=== PATIENT | female | born 1980 | race Caucasian/White ===

== ENCOUNTER 2022-12-16 11:20 | Outpatient (OUT) | payer MEDICAID, SELFPAY ==
--- NOTE | 2022-12-16 11:28 | MM_ITS ---
Patient: ANN MARIE RODRIGUEZ Exam Date: 12/16/2022 : 1980 Gender:F Ordering : Non-Staff Physician Admission #: [id number] Family : ZULY JARQUIN Order #: [id number] CLICK HERE TO VIEW EXAM RADIOLOGY REPORT PROCEDURE: MM TOMOSYNTHESIS SCREENING BI COMPARISON: None. INDICATIONS: Screening Calculator Name NCI Breast Cancer Risk Assessment Tool 5 Year Breast Cancer Risk 0.70% Lifetime Breast Cancer Risk 12.50% Personal Breast Cancer No Personal Ovarian Cancer No Treatments None Family Cancers Grandmother-maternal with breast cancer at age 84; Aunt-maternal with breast cancer at age 57. LOCATION: [facility] BREAST COMPOSITION: Extremely dense, which lowers the sensitivity of mammography. FINDINGS: DIAGNOSTIC CATEGORY 1--NEGATIVE. RIGHT BREAST: No significant suspicious finding. LEFT BREAST: No significant suspicious finding. RECOMMENDATIONS: ROUTINE MAMMOGRAM AND CLINICAL EVALUATION IN 12 MONTHS. PLEASE NOTE: A NORMAL MAMMOGRAM DOES NOT EXCLUDE THE POSSIBILITY OF BREAST CANCER. A CLINICALLY SUSPICIOUS PALPABLE LUMP SHOULD BE BIOPSIED. Dictated by: Dmitri Buck M.D. on 12/17/2022 at 13:42 Approved by: Dmitri Buck M.D. on 12/17/2022 at 13:46
== END 2022-12-16 11:21 | disposition home or self-care (01) ==
LOC: MAMMO 11:24
DX: Z12.31 Encounter for screening mammogram for malignant neoplasm of breast (principal); Z80.3 Family history of malignant neoplasm of breast
CPT/HCPCS: 77063; 77067

== ENCOUNTER 2024-07-15 20:08 | Outpatient (REF) | payer MEDICAID, SELFPAY | END 2024-07-15 20:09 | disposition home or self-care (01) | LOC: LAB 20:08 | PROVIDERS: Visit Provider Physician Assistant | DX: Z01.419 Encounter for gynecological examination (general) (routine) without abnormal findings (principal) | CPT/HCPCS: 87624; 88175 ==

== ENCOUNTER 2024-08-19 11:30 | Outpatient (OUT) | payer MEDICAID, SELFPAY ==
--- NOTE | 2024-08-19 11:32 | MM_ITS ---
Patient Name: ANN MARIE RODRIGUEZ MR#: [id number] : 1980 Exam Date: 08/19/2024 Ordering Doctor: SULY Greer . RADIOLOGY REPORT PROCEDURE: MM TOMOSYNTHESIS SCREENING BI COMPARISON: MM TOMOSYNTHESIS SCREENING BI, 12/16/2022. INDICATIONS: Screening Calculator Name NCI Breast Cancer Risk Assessment Tool 5 Year Breast Cancer Risk 0.80% Lifetime Breast Cancer Risk 12.20% Personal Breast Cancer No Personal Ovarian Cancer No Treatments None Family Cancers Grandmother-maternal with breast cancer at age 84; Aunt-maternal with breast cancer at age 57. LOCATION: [facility] BREAST COMPOSITION: The breasts are extremely dense, which lowers the sensitivity of mammography. FINDINGS: RIGHT BREAST: No significant suspicious finding. LEFT BREAST: No significant suspicious finding. DIAGNOSTIC CATEGORY 1--NEGATIVE. RECOMMENDATIONS: ROUTINE MAMMOGRAM AND CLINICAL EVALUATION IN 12 MONTHS. PLEASE NOTE: A NORMAL MAMMOGRAM DOES NOT EXCLUDE THE POSSIBILITY OF BREAST CANCER. A CLINICALLY SUSPICIOUS PALPABLE LUMP SHOULD BE BIOPSIED. Dictated by: Lucio Mendoza DO on 08/19/2024 at 15:00 Approved by: Lucio Mendoza DO on 08/19/2024 at 15:01
--- OUTSIDE RECORDS SUMMARY | 2024-08-19 11:52 | XMS_ITS | CCD ---
Author Organization [facility] Care Team Providers Care Inspector Salvage Name Role Phone DR JASON PADILLA Attending Unavailable BRETT, DR GOMEZ Consulting Unavailable DR JASON PADILLA Admitting Unavailable [facility], DR SHANKS Primary Care Unavailable Shen Esparza Unavailable Bonita Parra Unavailable DO Shen Esparza Primary Care Provider DO Shen Esparza Attending Provider Shen Esparza Attending Unavailable Shen Esparza Primary Care Unavailable Shen Esparza Admitting Unavailable Shen Esparza MD Primary Care Provider VERA FATIMA Attending Unavailable Medications Current Medications Medication Drug Class(es) Dates Sig (Normalized) Sig (Original) acyclovir 800 mg oral tablet (20 sources) Herpesvirus Nucleoside Analog DNA Polymerase Inhibitor, Herpes Simplex Virus Nucleoside Analog DNA Polymerase Inhibitor, Herpes Zoster Virus Nucleoside Analog DNA Polymerase Inhibitor Start: 07-16-2023 End: 06-24-2024 take 2 tablets by mouth twice daily as needed Acyclovir 800 mg tablet Active 800 MG PO .COMPLEX as needed for cold sores 60 June 24, 2024 9:04am 800 mg orally 2 tabs twice a day PRN; Start: 01-26-2019 take 2 tablets by mo uth twice daily as needed Acyclovir 800 MG 2 tablet Orally prn Twice a day for 2 days prn Jan, Not-Taking/PRN Albuterol Sulfate (Proair Hfa) 90 mcg/actuation HFA aerosol inhaler (3 sources) Start: 07-17-2023 take 2 puff(s) by inhalation every six hours as needed Albuterol Sulfate (Proair Hfa) 90 mcg/actuation HFA aerosol inhaler Active 2 PUFF INHALATION Every 6 hours 6.7 July 17, 2023 2:16pm FreeTextSi puffs as needed Inhalation every 6 hrs; Note: Source Status: Not-TakingundefinedPRN; Provider: Isaias Romeo Start: 07-17-2023 take 2 puff(s) by in halation every six hours as needed Albuterol Sulfate (Proair Hfa) 90 mcg/actuation HFA aerosol inhaler Active 2 PUFF INHALATION Every 6 hours 6.7 July 17, 2023 3:16pm FreeTextSi puffs as needed Inhalation every 6 hrs; Note: Source Status: Not-Taking\PRN; Provider: Isaias Romeo amLODIPine 10 mg oral tablet (20 sources) Dihydropyridine Calcium Channel Nabor Start: 07-06-2024 amLODIPine (Norvasc) 10 MG tablet 07/06/2024 Active Start: 07-16-2023 End: 04-05-2024 amLODIPine (Norvasc) 10 MG t ablet 07/06/2024 Active Start: 12-01-2017 take 1 tablet by thierry th every twenty-four hours amLODIPine Besylate 10 MG 1 tablet Orally Once a day Nov, Active ciprofloxacin 3 mg/ml ophthalmic solution (3 sources) Quinolone Antimicrobial Start: 06-27-2023 take 1-2 drop(s) into the eye(s) every four hours Ciprofloxacin HCl 0.3 % 1-2 drops Ophthalmic every 4 hours for 7 Jun, Active Start: 09-24-2022 take 1-2 drop(s) int o the eye(s) every four hours Ciprofloxacin HCl 0.3 % 1-2 drops Ophthalmic every 4 hours for 7 days September, Active citalopram 20 mg oral tablet (20 sources) Serotonin Reuptake Inhibitor Start: 07-06-2024 citalopram (CeleXA) 20 MG tablet 07/06/2024 Active Start: 07-16-2023 End: 04-05-2024 citalopram (CeleXA) 20 MG ta blet 07/06/2024 Active Start: 11-27-2017 take 1 tablet by thierry th every twenty-four hours CeleXA 20 MG 1 tablet Orally Once a day for 90 days Nov, Active hydroCHLOROthiazide 12.5 mg oral tablet (15 sources) Thiazide Diuretic Start: 07-06-2024 take 1 tablet by mouth once daily as needed Hydrochlorothiazide 12.5 mg tablet Active 12.5 MG PO daily as needed July 19, 2024 12:53pm Start: 07-16-2023 End: 07-19-2024 Hydrochlorothiazide 12.5 mg tablet Discontinued 12.5 MG PO Every 48 hours April 05, 2024 2:50pm July 19, 2024 12:53pm FreeTextSi tablet Orally every other day; Note: Source Status: Not-TakingundefinedPRN; Provider: Isaias Romeo irbesartan 150 mg oral tablet (20 sources) Angiotensin 2 Receptor Nabor Start: 07-16-2023 End: 04-05-2024 take 1 tablet by mouth once daily Irbesartan 150 mg tablet Active 150 MG PO Daily April 05, 2024 2:51pm FreeTextSi tablet Orally Once a day; Note: Source Status: Taking; Provider: Isaias Romeo Start: 06-02-2018 take 1 tablet by thierry th every twenty-four hours Irbesartan 150 MG 1 tablet Orally Once a day May, Active LORazepam 0.5 mg oral tablet (15 sources) Benzodiazepine Start: 07-17-2023 End: 07-17-2023 take 1 tablet by mouth once daily as needed for anxiety Lorazepam (Ativan) 0.5 mg tablet Active 0.5 MG PO Daily as needed for anxiety/ panic attacks July 17, 2023 2:24pm Start: 11-19-2021 take 1 tablet by thierry th every six hours Ativan 0.5 MG 1 tablet as needed Orally every 6 hrs PRN Oct, Active Start: 10-27-2017 take 1 tablet by thierry th every six hours Ativan 0.5 MG 1 tablet as needed Orally every 6 hrs PRN Oct, Not-Taking Completed/Discontinued Medications Medication Drug Class(es) Dates Sig (Normalized) Sig (Original) [id number] actuat albuterol 0.09 mg/actuat metered dose inhaler (8 sources) beta2-Adrenergic Agonist Start: 07-16-2023 End: 07-17-2023 take 2 puff(s) by inhalation every six hours as needed Albuterol Sulfate (Proair Hfa) 90 mcg/actuation HFA aerosol inhaler Discontinued 2 PUFF INHALATION Every 6 hours July 16, 2023 12:00am July 17, 2023 2:18pm FreeTextSi puffs as needed Inhalation every 6 hrs; Note: Source Status: Not-Takingundefined PRN; Provider: Isaias Romeo Start: 12-29-2017 take 2 puff(s) by in halation every six hours as needed ProAir HFA 108 (90 Base) MCG/ACT 2 puffs as needed Inhalation every 6 hrs Dec, Active cephalexin 500 mg oral capsule (4 sources) Cephalosporin Antibacterial Start: 07-17-2023 End: 01-15-2024 take 1 capsule by mouth three times daily Cephalexin 500 mg capsule Discontinued 500 MG PO Three times daily 24 03July 17, 2023 12:00am January 15, 2024 12:04pm diclofenac sodium 20 mg/ml topical solution (10 sources) Nonsteroidal Anti-inflammatory Drug Start: 07-25-2020 Pennsaid 2 % 2 pumps Externally Twice a day sample provided Jul, Not-Taking Hydrochlorothiazi de-12.5 mg 12.5 mg (11 sources) Start: 03-03-2018 take 1 tablet by mouth every other day as needed Hydrochlorothiazid e-12.5 mg 12.5 mg 1 tablet Orally every other day Feb, Not-Taking/PRN Start: 03-03-2018 take 1 tablet by thierry th every other day Hydrochlorothiazide-12.5 mg 12.5 mg 1 tablet Orally every other day Feb, Active potassium bicarbonate 25 meq effervescent oral tablet (10 sources) Start: 05-22-2020 take 1 tablet by mouth once daily at mealtime Klor-Con/EF 25 MEQ 1 tablet dissolved in water with meals Orally once a day Apr, Not-Taking ProAir HFA 108 (90 Base) MCG/ACT (7 sources) Start: 12-29-2017 take 2 puff(s) by inhalation every six hours as needed ProAir HFA 108 (90 Base) MCG/ACT 2 puffs as needed Inhalation every 6 hrs Dec, Not-Taking/PRN Start: 12-29-2017 take 2 puff(s) by in halation every six hours as needed ProAir HFA 108 (90 Base) MCG/ACT 2 puffs as needed Inhalation every 6 hrs Dec, Active Start: 12-29-2017 take 2 puff(s) by in halation every six hours as needed ProAir HFA 108 (90 Base) MCG/ACT 2 puffs as needed Inhalation every 6 hrs for 90 days Dec, Active Problems Active Problems Problem Classification Problem Date Documented Date Episodic/Chronic Anxiety disorders (20 sources) Anxiety; Translations: [Anxiety disorder, unspecified] Onset: 10-09-2021 Resolved: 11-19-2021 Chronic Asthma (3 sources) Asthma; Translations: [Unspecified asthma, uncomplicated] 07-17-2023 Chronic Disorders of lipid metabolism (20 sources) Hypertriglyceridemia; Translations: [Pure hyperglyceridemia] Onset: 11-19-2021 Resolved: 11-19-2021 Chronic Essential hypertension (20 sources) Benign essential hypertension; Translations: [Essential (primary) hypertension] Onset: 05-21-2021 Resolved: 11-19-2021 Chronic Immunizations and screening for infectious disease (1 source) Encounter for screening for human papillomavirus (HPV); Translations: [ENC SCREENING HUMAN PAPILLOMAVIRUS] Onset: 08-22-2021 Episodic Inflammation; infection of eye (except that caused by tuberculosis or sexually transmitteddisease) (2 sources) Unspecified acute conjunctivitis, right eye; Translations: [Unspecified acute conjunctivitis, bilateral] Episodic Lymphadenitis (5 sources) Cervical lymphadenopathy; Translations: [Localized enlarged lymph nodes] 07-17-2023 Episodic Nutritional deficiencies (4 sources) Vitamin D deficiency; Translations: [Vitamin D deficiency, unspecified] Onset: 01-14-2024 01-15-2024 Chronic Other connective tissue disease (11 sources) Pain in right heel; Translations: [Pain in right foot] Episodic Other lower respiratory disease (2 sources) Wheezing Episodic Other screening for suspected conditions (not mental disorders or infectious disease) (18 sources) Encounter for screening for malignant neoplasm of cervix; Translations: [Patient encounter status] Onset: 08-21-2021 Episodic Substance-related disorders (15 sources) Nicotine dependence; Translations: [Nicotine dependence, unspecified, uncomplicated] Chronic Past or Other Problems Problem Classification Problem Date Documented Da te Episodic/Chronic Residual codes; unclassified (1 source) Edema, unspecified Onset: 11-19-2021 Resolved: 11-19-2021 Episodic Results Test Name Value Interpretation Reference Range Facility IGP,APTIMA HPV,AGE GDLNon AGE GDLN ACOG TESTING Note . [facility] Comment on above: TESTS RESULT FLAG UN ITS REF RANGE LAB Clinician Provided Cytology Information Source.............Cervix;Endocervix No. of containers..01 ThinPrep Vial Age Algo ACOG Regina... FLAG LEGEND: L-Low Normal,H-High Normal,LL-Alert Low,HH-Alert High <-Panic Low,>-Panic High,A-Abnormal,AA-Critical Abnormal Performed at: 01 =G [address] [place] [address] Shannon Marmolejo MD, HPV APTIMA Negative Negative [facility] Comment on above: This nucleic acid am plification test detects fourteen high- risk HPV types (16,18,31,33,35,39,45,51,52,56,58,59,66,68) without differentiation. Performed at: =[address] [id number] Ophthalmologist: Shannno Marmolejo MD, Phone: [phone] Performed at: [address] [id number] Ophthalmologist: Shannon Marmolejo MD, Phone: [phone] IGP, APTIMA HPV, RFX 16/18,45 Note . [facility] Comment on above: TESTS RESULT FLAG U NITS REF RANGE LAB DIAGNOSIS: 02 NEGATIVE FOR INTRAEPITHELIAL LESION OR MALIGNANCY. Specimen adequacy: 02 Satisfactory for evaluation. Endocervical and/or squamous metaplastic cells (endocervical component) are present. Performed by: 02 Flori Burch, [employer] ([facility]) . 02 Note: Note 02 The Pap smear is a screening test designed to aid in the detection of premalignant and malignant conditions of the uterine cervix. It is not a diagnostic procedure and should not be used as the sole means of detecting cervical cancer. Both false-positive and false-negative reports do occur. Test Methodology: Note 02 This liquid based ThinPrep(R) pap test was screened with the use of an image guided system. HPV Genotype Reflex Note 02 Criteria not met, HPV Genotype not performed. FLAG LEGEND: L-Low Normal,H-High Normal,LL-Alert Low,HH-Alert High <-Panic Low,>-Panic High,A-Abnormal,AA-Critical Abnormal Performed at: [address] [id number] Shannon Marmolejo MD, BRUSH-SPATULA CERVIX ENDOCERVIX [facility] Alanine aminotransferase [En zymatic activity/volume] in Serum or PlasmaOrdered By: Shen Esparza on 01-14-2024 ALT [Catalytic activity/Vol] 19 U/L Normal 7-52 [facility] Comment on above: Performed By: #### L IPID, CBC, CMP, [id number], TSH3 #### [address] Albumin [Mass/volume] in Ser um or Plasma by Bromocresol green (BCG) dye binding methoOrdered By: Shen Esparza on 01-14-2024 Albumin BCG dye [Mass/Vol] 4.3 g/dL 3.5-5.7 [facility] Alkaline phosphatase [Enzyma tic activity/volume] in Serum or PlasmaOrdered By: Shen Esparza on 01-14-2024 ALP [Catalytic activity/Vol] 97 U/L Normal 34-104 [facility] Comment on above: Performed By: #### L IPID, CBC, CMP, [id number], TSH3 #### [facility] [address] [place] [address] Aspartate aminotransferase [ Enzymatic activity/volume] in Serum or PlasmaOrdered By: Shen Esparza on 01-14-2024 AST [Catalytic activity/Vol] 29 U/L Normal 13-39 [facility] Comment on above: Performed By: #### L IPID, CBC, CMP, [id number], TSH3 #### [address] Automated basophil %Ordered By: Shen Esparza on 01-14-2024 Basophils/100 WBC (Bld) 0.8 % Normal . [facility] Comment on above: Performed By: #### L IPID, CBC, CMP, [id number], TSH3 #### [address] Automated basophil countOrde red By: Shen Esparza on 01-14-2024 Basophils (Bld) [#/Vol] 0.1 10*3/uL Normal 0.0-0.2 [facility] Comment on above: Result Comment: PERF ORMED BY: [place] [address] PATHOLOGIST INFORMATION CODER JOSE ARTEAGA M.D. Performed By: #### L IPID, CBC, CMP, [id number], TSH3 #### [address] Automated blood monocyte cou ntOrdered By: Shen Esparza on 01-14-2024 Monocytes (Bld) [#/Vol] 0.4 10*3/uL Normal 0.0-0.8 [facility] Comment on above: Performed By: #### L IPID, CBC, CMP, [id number], TSH3 #### [address] Automated eosinophil %Ordere d By: Shen Esparza on 01-14-2024 Eosinophils/100 WBC (Bld) 2.1 % Normal . [facility] Comment on above: Performed By: #### L IPID, CBC, CMP, [id number], TSH3 #### [address] Automated eosinophil countOr dered By: Shen Esparza on 01-14-2024 Eosinophils (Bld) [#/Vol] 0.2 10*3/uL Normal 0.0-0.45 [facility] Comment on above: Performed By: #### L IPID, CBC, CMP, [id number], TSH3 #### [address] Automated monocyte %Ordered By: Shen Esparza on 01-14-2024 Monocytes/100 WBC (Bld) 5.1 % Normal . [facility] Comment on above: Performed By: #### L IPID, CBC, CMP, [id number], TSH3 #### [address] Automated neutrophil %Ordere d By: Shen Esparza on 01-14-2024 Neutrophils/100 WBC (Bld) 57.6 % Normal . [facility] Comment on above: Performed By: #### L IPID, CBC, CMP, [id number], TSH3 #### [address] Bilirubin.total [Mass/volume ] in Serum or PlasmaOrdered By: Shen Esparza on 01-14-2024 Bilirubin [Mass/Vol] 0.5 mg/dL Normal 0.3-1.0 [facility] Comment on above: Performed By: #### L IPID, CBC, CMP, [id number], TSH3 #### [facility] [address] [id number] [place] Calcium [Mass/volume] in Ser um or PlasmaOrdered By: Shen Epsarza on 01-14-2024 Calcium [Mass/Vol] 9.0 mg/dL Normal 8.6-10.3 [facility] Comment on above: Performed By: #### L IPID, CBC, CMP, [id number], TSH3 #### [facility] [address] [place] [address] [place] Carbon dioxide, total [Moles /volume] in Serum or PlasmaOrdered By: Shen Esparza on 01-14-2024 CO2 [Moles/Vol] 27.6 mmol/L Normal 21.0-31.0 [facility] Comment on above: Performed By: #### L IPID, CBC, CMP, [id number], TSH3 #### [facility] [address] [place] [address] [place] Chloride [Moles/volume] in S cody or PlasmaOrdered By: Shen Esparza on 01-14-2024 Chloride [Moles/Vol] 107 mmol/L Normal 98-107 [facility] Comment on above: Performed By: #### L IPID, CBC, CMP, [id number], TSH3 #### [facility] [address] [id number] [place] Cholesterol [Mass/volume] in Serum or PlasmaOrdered By: Shen Esparza on 01-14-2024 Cholesterol [Mass/Vol] 136 mg/dL Low 140-200 [facility] Comment on above: Chol less than 200 m g/dl low riskChol 201-239 mg/dl borderline riskChol 240 mg/dl and greater high risk Result Comment: Chol less than 200 mg/dl low risk Chol 201-239 mg/dl borderline risk Chol 240 mg/dl and greater high risk Performed By: #### L IPID, CBC, CMP, [id number], TSH3 #### [facility] [address] Cholesterol in LDL Calc [Mas s/Vol]Ordered By: Shen Esparza on 01-14-2024 Cholesterol in LDL [Mass/Vol] 50 mg/dL 0-100 [facility] Comment on above: LDL ATP III CLASSIFI CATIONLDL less than 100 mg/dL OptimalLDL 100-129 mg/dL Near or above optimalLDL 130-159 mg/dL Borderline highLDL 160-189 mg/dL HighLDL greater than 189 mg/dL Very high Cholesterol in VLDL Calc [Ma ss/Vol]Ordered By: Shen Esparza on 01-14-2024 Cholesterol in VLDL [Mass/Vol] 42 mg/dL [facility] Complete Blood Count Auto Di ffon 01-14-2024 Mean Corpuscular HGB Conc 35.2 g/dL High 32.0-35.0 [facility] Comment on above: Performed By: #### L IPID, CBC, CMP, [id number], TSH3 #### [facility] [address] NRBC% 0.1 /100{WBC} Normal 0-0.5 [facility] Comment on above: Performed By: #### L IPID, CBC, CMP, [id number], TSH3 #### [facility] [address] Comprehensive Metabolic Pane edith 01-14-2024 Albumin [Mass/Vol] 4.3 g/dL Normal 3.5-5.7 [facility] Comment on above: Performed By: #### L IPID, CBC, CMP, [id number], TSH3 #### [facility] [address] [place] [address] [place] GFR/1.73 sq M.predicted MDRD (S/P/Bld) [Vol rate/Area] mL/min/{1.73_m2} Normal [facility] Comment on above: Performed By: #### L IPID, CBC, CMP, [id number], TSH3 #### [facility] [address] Creatinine [Mass/volume] in Serum or PlasmaOrdered By: Shen Esparza on 01-14-2024 Creatinine [Mass/Vol] 0.55 mg/dL Low 0.60-1.20 [facility] Comment on above: Performed By: #### L IPID, CBC, CMP, [id number], TSH3 #### [address] Erythrocyte distribution wid th [Ratio] by Automated countOrdered By: Shen Esparza on 01-14-2024 Erythrocyte distribution width (RBC) [Ratio] 11.9 % Normal 11.9-15.3 [facility] Comment on above: Performed By: #### L IPID, CBC, CMP, [id number], TSH3 #### [address] Erythrocytes [#/volume] in B lood by Automated countOrdered By: Shen Esparza on 01-14-2024 RBC (Bld) [#/Vol] 4.23 10*6/uL Normal 3.60-5.00 [facility] Comment on above: Performed By: #### L IPID, CBC, CMP, [id number], TSH3 #### [address] Glucose [Mass/volume] in Ser um or PlasmaOrdered By: Shen Esparza on 01-14-2024 Glucose [Mass/Vol] 94 mg/dL Normal 70-100 [facility] Comment on above: ADA recommended refe rence rangeRandom Glucose Reference Range is dependent on time and content of last meal. Glucose of more than 200 mg/dL in a nonstressed, ambulatory subject supports the diagnosis of Diabetes Mellitus. Result Comment: [place] om Glucose Reference Range is dependent on time and content of last meal. Glucose of more than 200 mg/dL in a nonstressed, ambulatory subject supports the diagnosis of Diabetes Mellitus. ADA recommended reference range Performed By: #### L IPID, CBC, CMP, [id number], TSH3 #### [place] [address] [place] Hematocrit [Volume Fraction] of Blood by Automated countOrdered By: Shen Esparza on 01-14-2024 Hematocrit (Bld) [Volume fraction] 39.0 % Normal 34.0-46.4 [facility] Comment on above: Performed By: #### L IPID, CBC, CMP, [id number], TSH3 #### [facility] [address] Hemoglobin [Mass/volume] in BloodOrdered By: Shen Esparza on 01-14-2024 Hemoglobin (Bld) [Mass/Vol] 13.7 g/dL Normal 11.8-15.4 [facility] Comment on above: Performed By: #### L IPID, CBC, CMP, [id number], TSH3 #### [facility] [address] Leukocytes [#/volume] correc celso for nucleated erythrocytes in Blood by Automated counOrdered By: Shen Esparza on 01-14-2024 WBC corrected for nucl RBC Auto (Bld) [#/Vol] 7.9 10*3/uL 3.8-11.6 [facility] Leukocytes [#/volume] in Blo od by Automated countOrdered By: Shen Esparza on 01-14-2024 WBC (Bld) [#/Vol] 7.9 10*3/uL Normal 3.8-11.6 [facility] Comment on above: Performed By: #### L IPID, CBC, CMP, [id number], TSH3 #### [address] Lipid Panelon 01-14-2024 LDL Cholesterol,Calculated 50 mg/dL Normal 0-100 [facility] Comment on above: Result Comment: LDL ATP III CLASSIFICATION LDL less than 100 mg/dL Optimal LDL 100-129 mg/dL Near or above optimal LDL 130-159 mg/dL Borderline high LDL 160-189 mg/dL High LDL greater than 189 mg/dL Very high Performed By: #### L IPID, CBC, CMP, [id number], TSH3 #### [facility] [address] Triglyceride w/Reflex 213 mg/dL High 0-149 [facility] Comment on above: Result Comment: TRIG ATP III CLASSIFICATION TRIG less than 150 mg/dL Normal TRIG 150-199 mg/dL Borderline high TRIG 200-500 mg/dL High TRIG greater than 500 mg/dL Very high Standard traceable to the Center for Disease Conrtrol and Prevention (CDC) test method. Performed By: #### L IPID, CBC, CMP, [id number], TSH3 #### [address] VLDL CHOLESTEROL 42 mg/dL Normal [facility] Comment on above: Performed By: #### L IPID, CBC, CMP, [id number], TSH3 #### [address] Lymphocytes [#/volume] in Bl ood by Automated countOrdered By: Shen Esparza on 01-14-2024 Lymphocytes (Bld) [#/Vol] 2.7 10*3/uL Normal 1.00-4.8 [facility] Comment on above: Performed By: #### L IPID, CBC, CMP, [id number], TSH3 #### [address] Lymphocytes/100 leukocytes i n Blood by Automated countOrdered By: Shen Esparza on 01-14-2024 Lymphocytes/100 WBC (Bld) 34.4 % Normal . [facility] Comment on above: Performed By: #### L IPID, CBC, CMP, [id number], TSH3 #### [address] MCH [Entitic mass] by Automa celso countOrdered By: Shen Esparza on 01-14-2024 MCH (RBC) [Entitic mass] 32.4 pg Normal 24.7-34.3 [facility] Comment on above: Performed By: #### L IPID, CBC, CMP, [id number], TSH3 #### [address] MCHC Auto (RBC) [Mass/Vol]Or dered By: Shen Esparza on 01-14-2024 MCHC (RBC) [Mass/Vol] 35.2 g/dL High 32.0-35.0 [facility] MCV [Entitic volume] by Auto mated countOrdered By: Shen Esparza on 01-14-2024 MCV (RBC) [Entitic vol] 92.1 fL Normal 80-100 [facility] Comment on above: Performed By: #### L IPID, CBC, CMP, [id number], TSH3 #### [address] Neutrophils [#/volume] in Bl ood by Automated countOrdered By: Shen Esparza on 01-14-2024 Neutrophils (Bld) [#/Vol] 4.5 10*3/uL Normal 1.8-7.7 [facility] Comment on above: Performed By: #### L IPID, CBC, CMP, [id number], TSH3 #### [address] No Panel InformationOrdered By: Shen Esparza on 01-14-2024 Estimated GFR (CKD-EPI) > 60.0 mL/Min [facility] Creatinine Clearance (Chem N/A [facility] Nucleated erythrocytes [Pres ence] in Blood by Automated countOrdered By: Shen Esparza on 01-14-2024 Nucleated RBC Auto Ql (Bld) 0.1 /100{WBC} 0-0.5 [facility] Platelet mean volume [Entiti c volume] in Blood by Automated countOrdered By: Shen Esparza on 01-14-2024 Platelet mean volume (Bld) [Entitic vol] 8.1 fL Normal 6.3-10.7 [facility] Comment on above: Performed By: #### L IPID, CBC, CMP, [id number], TSH3 #### [address] Platelets [#/volume] in Bloo d by Automated countOrdered By: Shen Esparza on 01-14-2024 Platelets (Bld) [#/Vol] 216 10*3/uL Normal 150-450 [facility] Comment on above: Performed By: #### L IPID, CBC, CMP, [id number], TSH3 #### [address] Potassium [Moles/volume] in Serum or PlasmaOrdered By: Shen Esparza on 01-14-2024 Potassium [Moles/Vol] 4.2 mmol/L Normal 3.5-5.1 [facility] Comment on above: Performed By: #### L IPID, CBC, CMP, [id number], TSH3 #### [address] Protein [Mass/volume] in Ser um or PlasmaOrdered By: Shen Esparza on 01-14-2024 Protein [Mass/Vol] 6.7 g/dL Normal 6.4-8.9 [facility] Comment on above: Performed By: #### L IPID, CBC, CMP, [id number], TSH3 #### [address] Serum globulin measurement b y calculation (mass/volume)Ordered By: Shen Esparza on 01-14-2024 Globulin (S) [Mass/Vol] 2.4 g/dL Normal [facility] Comment on above: Performed By: #### L IPID, CBC, CMP, [id number], TSH3 #### [address] Serum or plasma albumin/glob ulin mass ratioOrdered By: Shen Esparza on 01-14-2024 Albumin/Globulin [Mass ratio] 1.8 {ratio} Normal [facility] Comment on above: Performed By: #### L IPID, CBC, CMP, [id number], TSH3 #### [address] Serum or plasma anion gap de terminationOrdered By: Shen Esparza on 01-14-2024 Anion gap [Moles/Vol] 10.6 mmol/L Normal 6.0-15.0 [facility] Comment on above: Performed By: #### L IPID, CBC, CMP, [id number], TSH3 #### [facility] [address] Serum or plasma high density lipoprotein (HDL) cholesterol measurementOrdered By: Shen Esparza on 01-14-2024 Cholesterol in HDL [Mass/Vol] 43 mg/dL Normal 23-92 [facility] Comment on above: HDL CHOL ATP-III CLA SSIFICATION Cardiovascular RiskHDL > or equal to 60 mg/dL LOWHDL < 40 mg/dL HIGH Result Comment: HDL CHOL ATP-III CLASSIFICATION Cardiovascular Risk HDL > or equal to 60 mg/dL LOW HDL < 40 mg/dL HIGH Performed By: #### L IPID, CBC, CMP, [id number], TSH3 #### [address] Serum or plasma total choles terol/high density lipoprotein (HDL) cholesterol mass ratOrdered By: Shen Esparza on 01-14-2024 Cholesterol.total/Choles terol in HDL [Mass ratio] 3.2 {ratio} Normal <5.0 [facility] Comment on above: Performed By: #### L IPID, CBC, CMP, [id number], TSH3 #### [facility] [address] [place] [address] [place] Sodium [Moles/volume] in Ser um or PlasmaOrdered By: Shen Esparza on 01-14-2024 Sodium [Moles/Vol] 141 mmol/L Normal 136-145 [facility] Comment on above: Performed By: #### L IPID, CBC, CMP, [id number], TSH3 #### [facility] [address] [place] [address] Thyrotropin [Units/volume] i n Serum or PlasmaOrdered By: Shen Esparza on 01-14-2024 TSH Qn 2.25 m[IU]/L Normal 0.45-5.33 [facility] Comment on above: Performed By: #### L IPID, CBC, CMP, [id number], TSH3 #### [facility] [address] [place] [address] Triglyceride [Mass/volume] i n Serum or PlasmaOrdered By: Shen Esparza on 01-14-2024 Triglyceride [Mass/Vol] 213 mg/dL High 0-149 F [facility] Comment on above: TRIG ATP III CLASSIF ICATIONTRIG less than 150 mg/dL NormalTRIG 150-199 mg/dL Borderline highTRIG 200-500 mg/dL High TRIG greater than 500 mg/dL Very highStandard traceable to the Center for Disease Conrtrol and Prevention (CDC) test method. Urea nitrogen [Mass/volume] in Serum or PlasmaOrdered By: Shen Esparza on 01-14-2024 Urea nitrogen [Mass/Vol] 9 mg/dL Normal 7-25 [facility] Comment on above: Performed By: #### L IPID, CBC, CMP, [id number], TSH3 #### [facility] [address] [id number] [facility] Vitamin D 25 Hydroxy Totalon 01-14-2024 Vitamin D 25 Hydroxy Total 18.2 ng/mL Low 30-100 [facility] Comment on above: Result Comment: BRIGITTE MIN D STATUS 25(OH)VITAMIN D RANGE (ng/mL) Deficient <20 Insufficient 20 to <30 Sufficient 30 to 100 Reference: Margarita Slade, Graham ACUÑA, et al. Evaluation,treatment, and prevention of vitamin D deficiency; an Endocrine Society clinical practice guideline. JCEM. 2010; 96(7):1911-30. PERFORMED BY: [place] [address] PATHOLOGIST INFORMATION CODER JOSE ARTEAGA M.D. Performed By: #### L IPID, CBC, CMP, [id number], TSH3 #### [facility] [address] [id number] [facility] Vitamin D+Metabolites [Mass/ volume] in Serum or PlasmaOrdered By: Shen Esparza on 01-14-2024 Vitamin D+Metabolites [Mass/Vol] 18.2 ng/mL Low 30-100 [facility] Comment on above: VITAMIN D STATUS 25( OH)VITAMIN D RANGE (ng/mL) Deficient <20 Insufficient 20 to <30Sufficient 30 to 100Reference: Margarita Slade, Marcelino-Efren ACUÑA, et al. Evaluation,treatment, and prevention of vitamin D deficiency; an Endocrine Society clinical practice guideline. JCEM. 2010; 96(7):1911-30. PAP ACOG PANEL 2: 30 to 65on 09-03-2021 . . Normal [facility] Comment on above: Result Comment: Perf ormed at: WB Performed By: #### [id number] #### [facility] [address] [place] [address] Dr. Carmelita Becerra Age Gdln ACOG Testing 30-65 Normal [facility] Comment on above: Performed By: #### [id number] #### [facility] [address] [address] [address] Carmelita Becerra DIAGNOSIS: Comment Normal [facility] Comment on above: Result Comment: NEGA TIVE FOR INTRAEPITHELIAL LESION OR MALIGNANCY. Performed at: WB Performed By: #### [id number] #### [facility] [address] [place] [address] Dr. Carmelita Becerra HPV Aptima Negative Normal [facility] Comment on above: Result Comment: This nucleic acid amplification test detects fourteen high-risk HPV types (16,18,31,33,35,39,45,51,52,56,58,59,66,68) without differentiation. Performed at: =G Performed By: #### [id number] #### [facility] [address] [place] [address] Dr. Carmelita Becerra Methodology: Comment Normal [facility] Comment on above: Result Comment: This liquid based ThinPrep(R) pap test was screened with the use of an image guided system. Performed at: WB Performed By: #### [id number] #### [facility] [address] [place] [address] Dr. Carmelita Becerra Note: Comment Normal [facility] Comment on above: Result Comment: The Pap smear is a screening test designed to aid in the detection of premalignant and malignant conditions of the uterine cervix. It is not a diagnostic procedure and should not be used as the sole means of detecting cervical cancer. Both false-positive and false-negative reports do occur. . Performed at: WB Performed By: #### [id number] #### [facility] [address] [address] [address] Carmelita Becerra Performed by: Comment Normal [facility] Comment on above: Result Comment: Giuliana Sparks, [employer] ([employer]) Performed at: WB Performed By: #### [id number] #### [facility] [address] [address] [address] Carmelita Becerra Specimen adequacy: Comment Normal [facility] Comment on above: Result Comment: Sati sfactory for evaluation. Endocervical and/or squamous metaplastic cells (endocervical component) are present. Performed at: WB Performed By: #### [id number] #### [facility] [address] [address] [address] Carmelita Becerra PAP ACOG PANEL 2: 30 to 65on 08-25-2021 . . Normal [facility] Comment on above: Result Comment: Perf ormed at: WB Performed By: #### [id number] #### [facility] [address] [address] [address] Carmelita Becerra Age Gdln ACOG Testing 30-65 [facility] Comment on above: Performed By: #### [id number] #### [facility] [address] [place] [address] Dr. Carmelita Becerra DIAGNOSIS: Comment [facility] Comment on above: Result Comment: NEGA TIVE FOR INTRAEPITHELIAL LESION OR MALIGNANCY. Performed at: WB Performed By: #### [id number] #### [facility] [address] [place] [address] Dr. Carmelita Becerra HPV Aptima Negative Normal Negative [facility] Comment on above: Result Comment: This nucleic acid amplification test detects fourteen high-risk HPV types (16,18,31,33,35,39,45,51,52,56,58,59,66,68) without differentiation. Performed at: =G Performed By: #### [id number] #### [facility] [address] [place] [address] Dr. Carmelita Becerra Methodology: Comment [facility] Comment on above: Result Comment: This liquid based ThinPrep(R) pap test was screened with the use of an image guided system. Performed at: WB Performed By: #### [id number] #### [facility] [address] [place] [address] Dr. Carmelita Becerra Note: Comment Normal [facility] Comment on above: Result Comment: The Pap smear is a screening test designed to aid in the detection of premalignant and malignant conditions of the uterine cervix. It is not a diagnostic procedure and should not be used as the sole means of detecting cervical cancer. Both false-positive and false-negative reports do occur. . Performed at: WB Performed By: #### [id number] #### [facility] [address] [place] [address] Dr. Carmelita Becerra Performed by: Comment Normal [facility] Comment on above: Result Comment: Giuliana Sparks, [employer] Server ([employer]) Performed at: WB Performed By: #### [id number] #### [facility] [address] [place] [address] Dr. Carmelita Becerra Specimen adequacy: Comment Normal [facility] Comment on above: Result Comment: Sati sfactory for evaluation. Endocervical and/or squamous metaplastic cells (endocervical component) are present. Performed at: WB Performed By: #### [id number] #### [facility] [address] [place] [address] Dr. Carmelita Becerra Vital Signs Date Time Vital Sign Value Performing Clinician Facility 07-19-2024 12:53-0500 Body height 162.56 cm [facility] 07-19-2024 12:53-0500 Body mass index (BMI) [Ratio] 33.6 kg/m2 [facility] 07-19-2024 12:53-0500 Body weight 88.9 kg [facility] 07-19-2024 12:53-0500 Diastolic blood pressure 86 mm[Hg] [facility] 07-19-2024 12:53-0500 Heart rate 72 /min [facility] 07-19-2024 12:53-0500 Respiratory rate 16 /min [facility] 07-19-2024 12:53-0500 SaO2% (BldA) [Mass fraction] 98 % [facility] 07-19-2024 12:53-0500 Systolic blood pressure 134 mm[Hg] [facility] 07-15-2024 10:46-0500 Body weight 89 kg Vera TUBBS Work Phone: [facility] 07-15-2024 10:46-0500 Diastolic blood pressure 80 mm[Hg] Vera TUBBS Work Phone: [facility] 07-15-2024 10:46-0500 Systolic blood pressure 126 mm[Hg] Vera TUBBS Work Phone: [facility] 01-15-2024 13:10-0400 Body height 162.56 cm DO Shen Kuns Work Phone: [facility] 01-15-2024 13:10-0400 Body mass index (BMI) [Ratio] 74.9 kg/m2 DO Shen Kirills Work Phone: [facility] 01-15-2024 13:10-0400 Body weight 198 kg DO Shen Kirills Work Phone: [facility] 01-15-2024 13:10-0400 Diastolic blood pressure 82 mm[Hg] DO Shen Kirills Work Phone: [facility] 01-15-2024 13:10-0400 Heart rate 66 /min DO Shen Kuns Work Phone: [facility] 01-15-2024 13:10-0400 Respiratory rate 16 /min DO Shen Kuns Work Phone: [facility] 01-15-2024 13:10-0400 SaO2% (BldA) [Mass fraction] 98 % DO Shen Kuns Work Phone: [facility] 01-15-2024 13:10-0400 Systolic blood pressure 130 mm[Hg] DO Shen Kuns Work Phone: [facility] 07-17-2023 13:36-0500 Body height 162.56 cm [facility] 07-17-2023 13:36-0500 Body mass index (BMI) [Ratio] 33.7 kg/m2 [facility] 07-17-2023 13:36-0500 Body weight 89.35 kg [facility] 07-17-2023 13:36-0500 Diastolic blood pressure 80 mm[Hg] [facility] 07-17-2023 13:36-0500 Heart rate 87 /min [facility] 07-17-2023 13:36-0500 SaO2% (BldA) [Mass fraction] 98 % [facility] 07-17-2023 13:36-0500 Systolic blood pressure 126 mm[Hg] [facility] 06-27-2023 13:40-0500 Body height 162.56 cm Bonita Parra Other [facility] 06-27-2023 13:40-0500 Body mass index (BMI) [Ratio] 33.85 kg/m2 Bonita Parra Other [employer] [facility] [employer] Other 06-27-2023 13:40-0500 Body temperature 98.4 [degF] Bonita Thibodeauxler Other [employer] [facility] [employer] Other 06-27-2023 13:40-0500 Body weight 89.45 kg Bonita Parra Other [employer] [facility] [employer] Other 06-27-2023 13:40-0500 Body weight 89.44 kg [facility] 06-27-2023 13:40-0500 Diastolic blood pressure 96 mm[Hg] Bonita Parra Other [facility] 06-27-2023 13:40-0500 Respiratory rate 18 /min Bonita Parra Other [employer] [facility] [employer] Other 06-27-2023 13:40-0500 SaO2% (BldA) [Mass fraction] 99 % Bonita Parra Other [employer] Other 06-27-2023 13:40-0500 Systolic blood pressure 141 mm[Hg] Bonita Parra Other [facility] 12-05-2022 12:30-0400 Body height 162.56 cm Shen Esparza Other [employer] Other 12-05-2022 12:30-0400 Body mass index (BMI) [Ratio] 33.3 kg/m2 Shen Esparza Other [employer] Other 12-05-2022 12:30-0400 Body weight 88 kg Shen Esparza Other [employer] Other 12-05-2022 12:30-0400 Diastolic blood pressure 80 mm[Hg] Shen Esparza Other [employer] Other 12-05-2022 12:30-0400 Respiratory rate 18 /min Shen Isaias Other [employer] Other 12-05-2022 12:30-0400 SaO2% (BldA) [Mass fraction] 98 % Shen Esparza Other [employer] Other 12-05-2022 12:30-0400 Systolic blood pressure 112 mm[Hg] Shen Esparza Other [employer] Other 09-24-2022 11:30-0400 Body height 162.56 cm Bonita Parra Other [employer] Other 09-24-2022 11:30-0400 Body mass index (BMI) [Ratio] 32.61 kg/m2 Bonita Parra Other [employer] Other 09-24-2022 11:30-0400 Body temperature 97.7 [degF] Bonita Parra Other [employer] Other 09-24-2022 11:30-0400 Body weight 86.18 kg Bonita Parra Other [employer] Other 09-24-2022 11:30-0400 Respiratory rate 18 /min Bonita Parra Other [employer] Other 09-24-2022 11:30-0400 SaO2% (BldA) [Mass fraction] 98 % Bonita Parra Other [employer] Other 06-06-2022 14:00-0500 Body height 162.56 cm Shen Esparza Other [employer] Other 06-06-2022 14:00-0500 Body mass index (BMI) [Ratio] 33.3 kg/m2 Shen Esparza Other [employer] Other 06-06-2022 14:00-0500 Body weight 88 kg Shen Esparza Other [employer] Other 06-06-2022 14:00-0500 Diastolic blood pressure 80 mm[Hg] Shen Esparza Other [employer] Other 06-06-2022 14:00-0500 Respiratory rate 18 /min Shen Esparza Other [employer] Other 06-06-2022 14:00-0500 SaO2% (BldA) [Mass fraction] 99 % Shen Esparza Other [employer] Other 06-06-2022 14:00-0500 Systolic blood pressure 122 mm[Hg] Shenrolan Roymartinez Other [employer] Other 11-19-2021 13:30-0400 Body height 162.56 cm Shenrolan Ryomartinez Other [employer] Other 11-19-2021 13:30-0400 Body mass index (BMI) [Ratio] 32.09 kg/m2 Shen Esparza Other [employer] Other 11-19-2021 13:30-0400 Body weight 84.82 kg Shenrolan Roymartinez Other [employer] Other 11-19-2021 13:30-0400 Diastolic blood pressure 70 mm[Hg] Shen Isaias Other [employer] Other 11-19-2021 13:30-0400 Respiratory rate 16 /min Shne Esparza Other [employer] Other 11-19-2021 13:30-0400 SaO2% (BldA) [Mass fraction] 99 % Shen Esparza Other [employer] Other 11-19-2021 13:30-0400 Systolic blood pressure 122 mm[Hg] Shen Esparza Other [employer] Other 05-21-2021 13:30-0500 Body height 162.56 cm Shen Esparza Other [employer] Other 05-21-2021 13:30-0500 Body mass index (BMI) [Ratio] 33.12 kg/m2 Shen Esparza Other [employer] Other 05-21-2021 13:30-0500 Body temperature 97.2 [degF] Shen Esparza Other [employer] Other 05-21-2021 13:30-0500 Body weight 87.54 kg Shen Esparza Other [employer] Other 05-21-2021 13:30-0500 Diastolic blood pressure 82 mm[Hg] Shen Esparza Other [employer] Other 05-21-2021 13:30-0500 Respiratory rate 18 /min Shen Esparza Other [employer] Other 05-21-2021 13:30-0500 SaO2% (BldA) [Mass fraction] 99 % Shen Esparza Other [employer] Other 05-21-2021 13:30-0500 Systolic blood pressure 128 mm[Hg] Shen Esparza Other [employer] Other Encounters Encounter Date Encounter Type Care Provider Facility Start: 07-19-2024 End: 07-19-2024 ambulatory [facility] Work Phone: Start: 07-19-2024 End: 07-19-2024 Patient encounter procedure [facility] Work Phone: Start: 07-15-2024 End: 07-15-2024 Bamboo flowsheet Vera TUBBS Work Phone: [facility] Start: 07-15-2024 End: 07-20-2024 Bamboo flowsheet Vera TUBBS Work Phone: [facility] Start: 07-15-2024 End: 07-20-2024 Clinisync Result Encounter Vera TUBBS Work Phone: [facility] External Department Unsolicited Start: 07-15-2024 End: 07-15-2024 ambulatory VERA BUTLEREY Not Available Start: 07-15-2024 End: 07-15-2024 Patient encounter procedure Vera TUBBS Work Phone: [facility] Work Phone: Start: 07-15-2024 End: 07-15-2024 Periodic preventive med est patient 40-64yrs Vera TUBBS Work Phone: [facility] Comment on above: Well woman exam with routine gynecological exam; Breast cancer screening by mammogram Start: 01-15-2024 End: 01-15-2024 ambulatory DO Shenrolan Roymartinez Work Phone: [facility] Work Phone: Start: 01-15-2024 End: 01-15-2024 Patient encounter procedure DO Shen Esparza Work Phone: [facility] Work Phone: Start: 01-14-2024 End: 01-14-2024 Patient encounter procedure DO Shen Esparza Work Phone: [facility] Work Phone: Start: 01-14-2024 End: 01-14-2024 ambulatory DO Shen Esparza Work Phone: [facility] Work Phone: Start: 07-17-2023 End: 07-17-2023 ambulatory [facility] Work Phone: Start: 07-17-2023 End: 07-17-2023 Patient encounter procedure [facility] Work Phone: Start: 06-27-2023 End: 06-27-2023 ambulatory Bonita Parra Other [employer] Other Start: 06-27-2023 Office outpatient vi sit 15 minutes Bonita Parra [facility] Start: 06-27-2023 End: 06-27-2023 Patient encounter procedure [facility]- Start: 01-07-2023 End: 01-07-2023 ambulatory Shen Roys Other [employer] Other Start: 01-07-2023 Telephone encounter Shen Esparza [facility] Start: 12-05-2022 End: 12-05-2022 ambulatory Shen Esparza Other [employer] Other Start: 12-05-2022 Office outpatient vi sit 15 minutes Shen Esparza [facility] Start: 09-24-2022 End: 09-24-2022 ambulatory Bonita Parra Other [employer] Other Start: 09-24-2022 Office outpatient vi sit 15 minutes Bonita Parra [facility] Start: 09-24-2022 Telephone encounter Shen Roys [facility] Start: 06-06-2022 End: 06-06-2022 ambulatory Shen Roys Other [employer] Other Start: 06-06-2022 Office outpatient vi sit 15 minutes Shen Roys [facility] Start: 05-14-2022 End: 05-14-2022 ambulatory Shen Roys Other [employer] Other Start: 05-14-2022 Telephone encounter Shen Roys [facility] Start: 11-19-2021 End: 11-19-2021 ambulatory Shen Roys Other [employer] Other Start: 11-19-2021 Office outpatient vi sit 25 minutes Shen Kuns [facility] Start: 11-16-2021 End: 11-16-2021 ambulatory Shen Isaias Other [employer] Other Start: 11-16-2021 Telephone encounter Shen Isaias [facility] Start: 10-09-2021 End: 10-09-2021 ambulatory Shen Esparza Other [employer] Other Start: 10-09-2021 Telephone encounter Shen Isaias [facility] Start: 08-21-2021 End: 08-21-[address] JASON PADILLA Facility: Start: 05-21-2021 End: 05-21-2021 ambulatory Shen Esparza Other [employer] Other Start: 05-21-2021 Office outpatient vi sit 15 minutes Shen Esparza [facility] Procedures Date Procedure Procedure Detail Performing Clinician Start: 07-15-2024 IGP,APTIMA HPV,AGE GDLN Vera Fatima PA Work Phone: Plan of Treatment Date Care Activity Detail Author Start: 07-15-2024 End: 09-12-2025 MG Breast - bilateral Screening Bilateral screening mammogram Imaging Routine Breast cancer screening by mammogram Expected: 07/15/2024 (Approximate), Expires: 09/12/2025 [facility] Work Phone: Comment on above: Expected: 07/15/2024 (Approximate), Expires: 09/12/2025 Comprehensive metabo lic 1999 panel - Serum or Plasma [facility] Comprehensive metabo lic 2000 panel - Serum or Plasma [facility] THIN PREP TIS PAP AN D HR HPV DNA THIN PREP TIS PAP AND HR HPV DNA Pathology and Cytology Routine Well woman exam with routine gynecological exam Ordered: 07/15/2024 [facility] Comment on above: Ordered: 07/15/2024 [facility] Immunizations Immunization Date Immunization Notes Care Provider Roseanna rodney NEGATED: Highlighted row has not occurred!09-18-2018 influenza, seasonal, injectable Patient Objection Shen Esparza Other [facility] Payers Date Payer Category Payer Self-pay [id number] 2022 Medicaid [facility] [id number] 2022 Medicaid [id number] 1982 Unknown [id number] 1982 Unknown [id number] 1959 Unknown [id number] [employer] ( and others) [facility] [id number] Unknown [id number] Unknown [employer] BC/BS [id number] Unknown [id number] Social History Date Type Detail Facility Unknown if ever smoked [employer] Other Sex Assigned At [employer] Other Start: 06-19-2018 End: 01-15-2024 Tobacco smoking status NHIS Smoker (finding) [facility] Start: 1980 Sex Assigned At Female F [facility] Tobacco smoking status NHIS Tobacco smoking consumption unknown [facility] Start: 1980 Sex assigned at Not on file N [facility] Start: 07-19-2024 Sex Female (finding) [facility] Clinical Notes 11-24-2011 to 07-15-2024 SULY Laboy - 07/15/2024 10:00 AM EST Note Date & Type Note Facility 07-15-2024 History of Presen t illness Narrative Reason for Appointment: Patient ID: Rosalba Posadas is a 44 y.o. female who presents for Well Women Visit Patient presents today for Annual Exam. MEDICATIONS Current Outpatient Medications Medication Instructions amLODIPine (Norvasc) 10 MG tablet citalopram (CeleXA) 20 MG tablet hydroCHLOROthiazide (HYDRODiuril) 12.5 MG tablet ALLERGIES No Known Allergies PROBLEMS Active Ambulatory Problems Diagnosis Date Noted No Active Ambulatory Problems Resolved Ambulatory Problems Diagnosis Date Noted No Resolved Ambulatory Problems No Additional Past Medical History HISTORY PAST MEDICAL HISTORY SOCIAL HISTORY History reviewed. No pertinent past medical history. Social History Tobacco Use Smoking status: Not on file Smokeless tobacco: Not on file Substance Use Topics Alcohol use: Not on file Drug use: Not on file FAMILY HISTORY No family history on file. SURGICAL HISTORY Past Surgical History: Procedure Laterality Date DILATION AND CURETTAGE OF UTERUS x2 REVIEW OF SYSTEMS Review of Systems: Review of Systems Constitutional: Negative. HENT: Negative. Eyes: Negative. Respiratory: Negative. Cardiovascular: Negative. Gastrointestinal: Negative. Genitourinary: Negative. Musculoskeletal: Negative. Skin: Negative. Neurological: Negative. All other systems reviewed and are negative. Hematological: Negative. Endocrine: Negative. Allergic/Immunologic: Negative. OBJECTIVE Objective: Physical Exam Constitutional: Appearance: Normal appearance. She is well-developed. Genitourinary: Vulva normal. Right Adnexa: not tender and no mass present. Left Adnexa: not tender and no mass present. No cervical discharge. Breasts: Breasts are soft. Right: Normal. Left: Normal. HENT: Head: Normocephalic. Nose: Nose normal. Mouth/Throat: Mouth: Mucous membranes are moist. Cardiovascular: Rate and Rhythm: Normal rate and regular rhythm. Pulmonary: Effort: Pulmonary effort is normal. Breath sounds: Normal breath sounds. Abdominal: General: Bowel sounds are normal. There is no distension. Palpations: Abdomen is soft. Tenderness: There is no abdominal tenderness. There is no guarding or rebound. Musculoskeletal: General: No swelling. Normal range of motion. Cervical back: Normal range of motion. Right lower leg: No edema. Left lower leg: No edema. Neurological: General: No focal deficit present. Mental Status: She is alert and oriented to person, place, and time. Skin: General: Skin is warm and dry. Psychiatric: Mood and Affect: Mood normal. Behavior: Behavior normal. Vitals and nursing note reviewed. Exam conducted with a liaison inspection laboratory assistant present. Vitals: There is no height or weight on file to calculate BMI. BP: 126/80 No LMP recorded. ASSESSMENT & PLAN ICD-10-CM 1. Well woman exam with routine gynecological exam Z01.419 THIN PREP TIS PAP AND HR HPV DNA 2. Breast cancer screening by mammogram Z12.31 Bilateral screening mammogram Bilateral screening mammogram Annual Exam: Patient presents today for an annual exam. Patient states she is doing well and has no complaints. Pap was obtained without difficulty. Orders Placed This Encounter Procedures Bilateral screening mammogram Follow Up: Patient is to return in one year for annual unless needed otherwise. Documented by Felicia Brooke LPN on behalf of: SULY Laboy documented in this encounter [facility] 06-27-2023 Evaluation note Encounter Date Diagnosis Assessment Notes Jun, Acute bacterial conjunctivitis of both eyes (ICD-10 - H10.33) Use eye drops as prescribed, discussed proper administration. Contagious until after 24 hours on antibiotic eye drops. Advised good hand hygiene and infection control, wash linens and bedding, do not touch eye directly with eye drop bottle, wipe off bottle after every use, do not share eye drop bottles. Apply cool compress to eye several times a day, clean eye with warm, most cloth from inner to outer canthus. Avoid eye makeup until sx resolve, discard all eye makeup that was used at time of infection. Eye symptoms should improve in 2-3 days with treatment, if no improvement follow up with PCP or eye doctor. Immediate eval if symptoms worsen, eye pain, vision changes, redness and swelling occur around the eye, headache, fever, N/V or any other concerning symptoms. Patient verbalizes understanding and is agreeable to treatment plan [facility] 08-15-2023 Evaluation note* Encounter Date Diagnosis Assessment Notes Treatment Notes Treatment Clinical Notes Dec, Anxiety (ICD-10 - F41.9) [facility] 07-13-2023 Evaluation note* Encounter Date Diagnosis Assessment Notes Treatment Notes Treatment Clinical Notes Nov, Encounter for screen ing mammogram for malignant neoplasm of breast (ICD-10 - Z12.31) Baseline mammogram has been ordered for her today. 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 I have encourgaged patient to perform monthly SBE and report any abnormal findings Nov, Hypertension (ICD-10 - I10) Current lab results have been reviewed with patient today. All chemestries are within normal limits. No indication of DM. Renal function is good. Blood pressure is excellent in office today. She is tolerating medication well. No edema to report. No complaints of cough. I do want to keep patient on the current medications as ordered. Nov, Anxiety (ICD-10 - F41.9) Anxiety is well controlled with current meds. No ill side effects to report. Blood count looks good and her thyroid level was also within normal limits. I am keeping her on the same dose of medication as this is controlling her symptoms well. Nov, Nicotine dependence (ICD-10 - F17.200) At least 3 minutes was spent counseling patient regarding the importance of smoking cessation in regards to the patients overall health. Discussed risks of smoking and health benefits of quitting. Provided patient with all possible options for tobacco cessation. Encouraged patient to continue with their efforts. Nov, Hypertriglyceridemia (ICD-10 - E78.1) Lipid panel reviewed with patient today. In comparison to previous lab results her triglycerides have increased. The remainder of her lipid panel is stable. I have encouraged patient to double her dietary efforts, increase her activity as tolerated and maintain a healthy weight. I will continue to monitor this. Nov, Wheezing (ICD-10 - R06.2) Educated on appropriate usage of rescue inhaler [facility] 05-02-2023 Evaluation note* Encounter Date Diagnosis Assessment Notes Treatment Notes Treatment Clinical Notes September, Acute bacterial conjunctivitis of right eye (ICD-10 - H10.31) Discussed diagnosis with patient. Advised patient to use eye drops as prescribed, discussed proper administration. Contagious until after 24 hours on antibiotic eye drops. Advised good hand hygiene and infection control, wash linens and bedding, do not touch eye directly with eye drop bottle, wipe off bottle after every use, do not share eye drop bottles. Apply cool compress to eye several times a day, clean eye with warm, most cloth from inner to outer canthus. Avoid eye makeup until sx resolve, discard all eye makeup that was used at time of infection. Eye symptoms should improve in 2-3 days with treatment, if no improvement follow up with PCP or UC. Immediate eval if symptoms worsen, eye pain, vision changes, redness and swelling occur around the eye, headache, fever, N/V or any other concerning symptoms. Patient verbalizes understanding and is agreeable to treatment plan. [facility] 01-12-2023 Evaluation note* Encounter Date Diagnosis Assessment Notes Treatment Notes Treatment Clinical Notes May, Hypertension (ICD-10 - I10) Blood pressure is stable and looks great upon check in. She is to continue on the above medications as directed. Refills provided. May, Wheezing (ICD-10 - R06.2) Refill provided. Patient is to keep this on hand and use as needed. May, Anxiety (ICD-10 - F41.9) Patient does well with the current dose of celexa and was encouraged to continue to use the Ativan very sparingly as she is now. She is to continue as directed. [facility] 12-20-2022 Evaluation note* Encounter Date Diagnosis Assessment Notes Treatment Notes Treatment Clinical Notes Apr, Anxiety (ICD-10 - F41.9) [facility] 06-27-2022 Evaluation note* Encounter Date Diagnosis Assessment Notes Treatment Notes Treatment Clinical Notes Oct, Hypertension (ICD-10 - I10) Blood pressure is stable on currentl regimen. She is only taking hctz every other day, therefore does not need to take potassium daily would recommend that she just make sure she eats a banana when taking diuretic. She verbalized understanding. Oct, Hypertriglyceridemia (ICD-10 - E78.1) Review of laboratory results with patient, we will continue to monitor. Encouraged her to monitor her diet and increase exercise as tolerated. Oct, Dependent edema (ICD -10 - R60.9) Continue with diuretic every other day/as needed. She states that she gets swelling when on her feet at work. Oct, Anxiety (ICD-10 - F41.9) Patient provided her bottle of ativan from 2017 and we disposed of this for her today. She was provided with a new prescription to keep on hand, she does not take often. [facility] 06-24-2022 Evaluation note* Encounter Date Diagnosis Assessment Notes Treatment Notes Treatment Clinical Notes Oct, Hypertension (ICD-10 - I10) [facility] 05-17-2022 Evaluation note* Encounter Date Diagnosis Assessment Notes Treatment Notes Treatment Clinical Notes September, Anxiety (ICD-10 - F41.9) [facility] 12-27-2021 Evaluation note* Encounter Date Diagnosis Assessment Notes Treatment Notes Treatment Clinical Notes Apr, Hypertension (ICD-10 - I10) Blood pressure is satisfactory, encouraged her to continue with medications as prescribed. Encouraged her to have her pressure take when she can, call with any concerns. Will see her back in 6 months. [facility] 07-01-2012 History general Narrative - Reported* Type Description Date Medical History hypertension Surgical History D & C miscarriage/ Dr. Padilla 2008 Surgical History D & C molar / Dr. Liliana ann 11/2011 Surgical History Tubal Ligation - Dr. Padilla 2018 [facility] Other 07-01-2012 History general Narrative - Reported* Type Description Date Medical History hypertension Medical History anxiety Surgical History D & C miscarriage/ Dr. Padilla 2008 Surgical History D & C molar / Dr. Liliana ann 11/2011 Surgical History Tubal Ligation - Dr. Padilla 2018 Hospitalization History child [facility] [employer] Other [facility] [employer] Other Evaluation note* Diagnosis Onset Date Resolution Status Anxiety and depression acute Hyperlipidemia acute Hypertension acute Lymphadenopathy of right cervical region acute [facility] Work Phone: Evaluation noteNo assessment information available [facility] Work Phone: Evaluation note* Author Marla Santacruz [facility] Authored January 15, 2024 1: 20pm The above note written by ANDRES Ruvalcaba acting as human recorder, note dictated by Dr. Shen Esparza. [facility] Work Phone: Evaluation note* Diagnosis Well woman exam with routine gynecological exam Routine gynecological examination Breast cancer screening by mammogram [facility] Diagnosis Onset Date Resolution Status Admit Date Anxiety and depression acute Fe bruary 2024 12:21pm Hypertension acute June 12:21pm [facility] Work Phone: Summary Purpose Family History Relationship Condition Age at Onset Recorded Date/T mirella father Alcoholism Unknown Family history of mental disorder Unknown grandparent Unknown Not Specified Hypertension Unknown sister Hypertension Unknown Relationship Condition Age at Onset Recorded Date/T mirella father Alcoholism Unknown Family history of mental disorder Unknown grandparent Unknown mother Hypertension Unknown sister Hypertension Unknown Relationship Condition Age at Onset Recorded Date/T mirella father Alcoholism Unknown Family history of mental disorder Unknown Malignant neoplasm Unknown Family history of ma lignant neoplasm of prostate Unknown grandparent Unknown mother Hypertension Unknown sister Hypertension Unknown Advance Directives Advance Directive Response Recorded Date/ Time Advance Directives No June 2:08pm Advance Directive Response Recorded Date/ Time Advance Directives No June 3:08pm Advance Directive Response Recorded Date/ Time Advance Directives No June 11:59am Advance Directive Response Recorded Date/ Time Advance Directives No June 10:59am Chief Complaint and Reason for Visit Chief Complaint Poss [facility], Expos ure To [facility] 6 MONTH FOLLOW UP Reason for Visit Anxiety and depressi on Hyperlipidemia Hypertension Lymphadenopathy of right cervical region Chief Complaint E78.5 E55.9 review labs- per bpk Reason for Visit Anxiety and depressi on Hyperlipidemia Hypertension Nicotine dependence Vitamin D deficiency Chief Complaint Admit Date 6 month f/u July 19, 2024 12:21pm Reason for Visit Admit Date Anxiety and depression July 19 12:21pm Hypertension July 19, 2024 12:21pm Additional Source Comments INFORMATION SOURCE (unrecogn ized section and content) DATE CREATED AUTHOR 09/04/2021 [facility] DATE CREATED AUTHOR AUTHOR'S ORGANIZ ATION 01/15/2024 [facility] DATE CREATED AUTHOR AUTHOR'S ORGANIZ ATION 07/17/2024 [facility] EPIC REASON FOR VISIT (unrecogniz ed section and content) Reason Comments Well Women Visit Care Teams (unrecognized sec tion and content) Team Status: Active Member Role Status Dates Shen Esparza DO Primary Care Provider Active Team Status: Inactive Member Role Status Dates Bonita Parra APRN Attending Provider Active Start: June 27, 2023 End: June 27, 2023 Team Status: Inactive Member Role Status Dates Shen Esparza DO Primary Care Provide r, Attending Provider Active Start: July 17, 2023 End: July 17, 2023 Team Status: Inactive Member Role Status Dates Shen Esparza DO Primary Care Provide r, Attending Provider Active Start: January 14, 2024 End: January 14, 2024 Team Status: Inactive Member Role Status Dates Shen Esparza DO Primary Care Provide r, Attending Provider Active Start: January 15, 2024 End: January 15, 2024 Inspector Salvage Relationship Specialty Start Date End Date Shen Esparza MD [address] [place] [address] PCP - General 07/15/24 Inspector Salvage Relationship Specialty Start Date End Date Shen Esparza MD [address] [place] [address] PCP - General 07/15/24 Team Status: Inactive Member Role Status Dates Shen Esparza , DO Primary Care Provide r, Attending Provider Active Start: July 19, 2024 End: July 19, 2024 Inspector Salvage Relationship Specialty Start Date End Date Shen Esparza MD [facility] [place] [address] PCP - General 07/15/24 Goals (unrecognized section and content) Goals may be documented in a n alternate section FOR RECORDS PERTAINING TO PATIENTS WHO ARE OR HAVE BEEN ENROLLED IN A CHEMICAL DEPENDENCY/SUBSTANCEABUSE PROGRAM, SOME INFORMATION MAY BE OMITTED. This clinical summary was aggregated from multiple sources. Caution should be exercised in using it in the provision of clinical care. This summary normalizes information from multiple sources, and as a consequence, information in this document may materially change the coding, format and clinical context of patient data. In addition, data may be omitted in some cases. CLINICAL DECISIONS SHOULD BE BASED ON THE PRIMARY CLINICAL RECORDS. [employer] provides no warranty or guarantee of the accuracy or completeness of information in this document.
== END 2024-08-19 11:31 | disposition home or self-care (01) ==
LOC: MAMMO 11:30
PROVIDERS: Visit Provider Physician Assistant
DX: Z12.31 Encounter for screening mammogram for malignant neoplasm of breast (principal); Z80.3 Family history of malignant neoplasm of breast
CPT/HCPCS: 77063; 77067

== ENCOUNTER 2025-01-08 10:13 | Emergency (ER) | payer MEDICAID, SELFPAY ==
[2025-01-08 10:18] VITALS: BP 174/103; PULSE 94; TEMP 36.7; O2SAT 100; BMI 32.6
--- NOTE | 2025-01-08 10:41 | ED.GENADUL1 ---
HPI HPI - General Adult General Chief complaint: Urogenital-Female Stated complaint: VAGINAL BLEEDING Time Seen by Provider: 01/08/25 10:30 Source: patient Mode of arrival: walk-in History of Present Illness HPI narrative: 44-year-old female presents for vaginal bleeding for 3 weeks. Most days it has been heavy. No syncope or dizziness. This has never happened to her before. Prior to the last 3 weeks she has been having some irregular periods for a month or 2. She had some abdominal cramping last night but no pain and she does not have any abdominal pain or cramping now. Related Data Home Medications ?Medication ?Instructions ?Recorded ?Confirmed amlodipine 10 mg tablet 10 mg PO DAILY 01/08/25 01/08/25 irbesartan 150 mg tablet 150 mg PO DAILY 01/08/25 01/08/25 Allergies Allergy/AdvReac Type Severity Reaction Status Date / Time No Known Drug Allergies Allergy Verified 01/08/25 10:21 Review of Systems ROS Narrative A ten point review of systems is negative except as noted above. [facility] Medical History (Updated 01/08/25 @ 14:44 by Lincoln Goldstein MD) HTN (hypertension) ?I10 - Essential (primary) hypertension (ICD-10) Surgical History (Updated 01/08/25 @ 10:24 by Vera Frost) H/O tubal ligation ?Z98.51 - Tubal ligation status (ICD-10) Social History Little interest or pleasure in doing things: not at all Feeling down, depressed, or hopeless: not at all Exam Narrative Exam Narrative: Nurses note and vital signs reviewed and patient is not hypoxic. General: The patient appears well and in no apparent distress. Patient is resting comfortably on cart. Skin: Warm, dry, no pallor noted. There is no rash noted. Head: Normocephalic, atraumatic Eye: Normal conjunctiva, no drainage Ears, Nose, Mouth, and Throat: oral mucosa is moist. Nares patent. Cardiovascular: Regular Rate and Rhythm Respiratory: Patient is in no distress, no accessory muscle use, lungs are clear to auscultation, no wheezing, rales or rhonchi Back: non-tender GI: Soft and nontender, no masses Musculoskeletal: The patient has no evidence of calf tenderness, no pitting edema, symmetrical pulses noted bilaterally Neurological: A&O, normal speech Psychiatric: Cooperative Constitutional Vital Signs, click to edit/add: Last Vital Signs Temp 98.0 F 01/08/25 10:18 Pulse 94 H 01/08/25 10:18 Resp 18 01/08/25 10:18 BP 137/90 01/08/25 12:40 Pulse Ox 100 01/08/25 10:18 O2 Del Method Room Air 01/08/25 10:18 Course Vital Signs Vital signs: Vital Signs Temperature 98.0 F 01/08/25 10:18 Pulse Rate 94 H 01/08/25 10:18 Respiratory Rate 18 01/08/25 10:18 Blood Pressure 174/103 H 01/08/25 10:18 Pulse Oximetry 100 01/08/25 10:18 Oxygen Delivery Method Room Air 01/08/25 10:18 Temperature 98.0 F 01/08/25 10:18 Pulse Rate 94 H 01/08/25 10:18 Respiratory Rate 18 01/08/25 10:18 Blood Pressure 137/90 01/08/25 12:40 Pulse Oximetry 100 01/08/25 10:18 Oxygen Delivery Method Room Air 01/08/25 10:18 Medical Decision Making MDM Narrative Medical decision making narrative: She is not anemic. Ultrasound shows small fibroid and she will follow-up with her legal support analyst. Treatment diagnosis and follow-up were discussed thoroughly. Differential Diagnosis Differential Diagnosis: Dysfunctional uterine bleeding, uterine fibroid Lab Data Lab results reviewed: Yes I reviewed the patient's lab results Labs: Lab Results 01/08/25 01/08/25 Range/Units 10:27 10:45 WBC 7.1 (4.0-11.0) 10^3/uL RBC 4.00 L (4.20-5.40) 10^6/uL Hgb 12.5 (12.0-16.0) g/dL Hct 35.3 L (36.0-48.0) % MCV 88.3 (81.0-99.0) fL MCH 31.3 (26.7-34.0) pg MCHC 35.4 H (29.9-35.2) g/dL RDW 11.5 (11.0-15.0) % Plt Count 202 (150-450) 10^3/uL MPV 9.4 L (9.5-13.5) fL Neut % (Auto) 58.3 (43.0-75.0) % Lymph % (Auto) 32.6 (20.5-60.0) % [place] % (Auto) 5.8 (1.7-12.0) % Eos % (Auto) 2.3 (0.9-7.0) % Baso % (Auto) 0.7 (0.2-2.0) % Neut # (Auto) 4.2 (1.4-6.5) 10^3/uL Lymph # (Auto) 2.3 (1.2-3.8) 10^3/uL [place] # (Auto) 0.4 (0.3-0.8) 10^3/uL Eos # (Auto) 0.2 (0.0-0.7) 10^3/uL Baso # (Auto) 0.1 (0.0-0.1) 10^3/uL Abs Immat Gran (auto) 0.02 (0.00-0.03) 10^3/uL Imm/Tot Granulo (auto) 0.3 (0.0-0.5) % PT 10.6 (9.0-11.6) sec INR 1.00 APTT 28.9 (22.3-36.2) sec Sodium 139 (136-145) mmol/L Potassium 4.2 (3.5-5.1) mmol/L Chloride 103 (98-107) mmol/L Carbon Dioxide 26.3 (21.0-32.0) mmol/L Anion Gap 13.9 BUN 8.0 (7.0-18.0) mg/dL Creatinine 0.54 L (0.55-1.02) mg/dL Est GFR ( Amer) >60 (>=60 mL/min/1.73m^2) Est GFR (Non-Af Amer) >60 (>=60 mL/min/1.73m^2) BUN/Creatinine Ratio 14.8 Glucose 97 (74-106) mg/dL Calcium 8.8 (8.5-10.1) mg/dL Serum HCG, Qual Negative (NEGATIVE) Urine Color Red A (YELLOW) Urine Clarity Sl cloudy (CLEAR) Urine pH 7.5 (5.0-9.0) Ur Specific [place] 1.015 (1.005-1.025) Urine Protein Trace (NEG/TRACE) mg/dL Urine Glucose (UA) Negative (NEGATIVE) mg/dL Urine Ketones Negative (NEGATIVE) mg/dL Urine Occult Blood Large A (NEGATIVE) Urine Nitrite Negative (NEGATIVE) Urine Bilirubin Negative (NEGATIVE) Urine Urobilinogen 0.2 (0.2-1.0) EU/dL Ur Leukocyte Esterase Negative (NEGATIVE) Urine RBC >100 A (0-2) #/HPF Urine WBC None seen (NONE SEEN) #/HPF Ur Squamous Epith Cells Few A (NONE/RARE) #/LPF Urine Crystals None seen (None Seen) #/HPF Urine Bacteria Small A (NONE SEEN) #/HPF Urine Casts None seen (NONE SEEN) #/LPF Urine Mucus Trace A (NONE SEEN) Ur Culture Indicated? Yes[place] [place] Data Pelvic ultrasound: Radiologist's impression: ITS Impressions Transvaginal US 01/08/25 11:16 Impression: Fibroid uterus. Unremarkable endometrium and left ovary. Right ovary not visualized. Impression dictated by: Kurtis Clarke Jr., D.O. 01/08/2025 2:31 PM Dictation Location: [employer] [facility] [employer] Electronically authenticated by: [id number] Y Date: 01/08/2025 14:31 Discharge Plan Discharge Chief Complaint: Urogenital-Female Clinical Impression: Dysfunctional uterine bleeding Patient Disposition: Home, Self-Care Time of Disposition Decision: 14:44 Condition: Good Mode of Transportation: Private Vehicle Prescriptions / Home Meds: No Action amlodipine 10 mg tablet 10 mg PO DAILY irbesartan 150 mg tablet 150 mg PO DAILY Print Language: Italian Instructions: Abnormal (Dysfunctional) Uterine Bleeding (ED) Additional Instructions: Call Dr. aCrvalho on Friday for follow-up. Referrals: Physician,Non-Staff, [Primary Care Provider] - 1 week
[2025-01-08 10:51] LABS: Glucose Urine UA NEGATIVE (NEGATIVE)
[2025-01-08 10:57] LABS: Hematocrit 35.3 % (36.0-48.0); Hemoglobin 12.5 g/dL (12.0-16.0); Immature Granulocytes Abs Auto 0.02 10^3/uL (0.00-0.03); Immature Granulocytes Pct Auto 0.3 % (0.0-0.5); Lymphocytes Absolute Auto 2.3 10^3/uL (1.2-3.8); Mean Corpuscular HGB Conc 35.4 g/dL (29.9-35.2); Mean Corpuscular Hemoglobin 31.3 pg (26.7-34.0); Mean Corpuscular Volume 88.3 fL (81.0-99.0); Platelet Count 202 10^3/uL (150-450); Red Blood Count 4.00 10^6/uL (4.20-5.40); White Blood Count 7.1 10^3/uL (4.0-11.0)
--- OUTSIDE RECORDS SUMMARY | 2025-01-08 11:07 | XMS_ITS | CCD ---
Author Organization [facility] Care Team Providers Care Dramatic Reader Name Role Phone DR JASON PADILLA Attending Unavailable BRETT, DR GOMEZ Consulting Unavailable DR JASON PADILLA Admitting Unavailable [facility] [place] DR SHANKS Primary Care Unavailable Shen Esparza Unavailable Bonita Parra Unavailable DO Shen Esparza Primary Care Provider DO Shen Esparza Attending Provider [phone] Shen Esparza Attending Unavailable Shen Esparza Primary Care Unavailable Shen Esparza Admitting Unavailable Shen Esparza MD Primary Care Provider [phone] VERA FATIMA Attending Unavailable Medications Current Medications [...] Nov, Active hydroCHLOROthiazide 12.5 mg oral tablet (16 sources) Thiazide Diuretic Start: 07-06-2024 hydroCHLOROthiazide (HYDRODiuril) 12.5 MG tablet 07/06/2024 Active Start: 07-16-2023 End: 07-19-2024 Hydrochlorothiazide 12.5 mg [...] Drug Class(es) Dates Sig (Normalized) Sig (Original) [id number] 200 actuat albuterol 0.09 mg/actuat metered dose [...] Test Name Value Interpretation Reference Range Facility MM TOMOSYNTHESIS SCREENING B Ion 08-19-2024 [place] [address] Mammography Report Signed Patient: ANN MARIE POSADAS MR#: [id number] : 1980 Acct:[id number] Age/Sex: 44 / F ADM Date: 08/19/24 Loc: MAMMO Attending Dr: Vera Fatima Ordering Physician: Vera Fatima Results: Date of Service: 08/19/24 Follow Up: Procedure(s): MM tomosynthesis screening BI Accession Number(s): [id number] cc: Vera Fatima; Physician,Non-Staff M.D. Patient Name: ANN MARIE POSADAS MR#: [id number] : 1980 Exam Date: 08/19/2024 Ordering Doctor: SULY Fatima . RADIOLOGY REPORT PROCEDURE: MM TOMOSYNTHESIS SCREENING BI COMPARISON: MM TOMOSYNTHESIS SCREENING BI, 12/16/2022. INDICATIONS: Screening Calculator Name NCI Breast Cancer Risk Assessment Tool 5 Year Breast Cancer Risk 0.80% Lifetime Breast Cancer Risk 12.20% Personal Breast Cancer No Personal Ovarian Cancer No Treatments None Family Cancers Grandmother-maternal with breast cancer at age 84; Aunt-maternal with breast cancer at age 57. LOCATION: [facility] BREAST COMPOSITION: The breasts are extremely dense, which lowers the sensitivity of mammography. FINDINGS: RIGHT BREAST: No significant suspicious finding. LEFT BREAST: No significant suspicious finding. DIAGNOSTIC CATEGORY 1--NEGATIVE. RECOMMENDATIONS: ROUTINE MAMMOGRAM AND CLINICAL EVALUATION IN 12 MONTHS. PLEASE NOTE: A NORMAL MAMMOGRAM DOES NOT EXCLUDE THE POSSIBILITY OF BREAST CANCER. A CLINICALLY SUSPICIOUS PALPABLE LUMP SHOULD BE BIOPSIED. Dictated by: Lucio Mendoza DO on 08/19/2024 at 15:00 Approved by: Lucio Mendoza DO on 08/19/2024 at 15:01 Dictated By: Lucio Mendoza D.O. Signed By: 08/19/24 1503 DD/ 1502 TD/TT: Mother Helper: [facility] Radiology, Radiologist, MD - 08/19/[address] [address] Mammography Report Signed Patient: ANN MARIE POSADAS MR#: [id number] : 1980 Acct:[id number] Age/Sex: 44 / F ADM Date: 08/19/24 Loc: MAMMO Attending Dr: Vera Fatima Ordering Physician: Vera Fatima Results: Date of Service: 08/19/24 Follow Up: Procedure(s): MM tomosynthesis screening BI Accession Number(s): [id number] cc: Vera Fatima; Physician,Non-Staff M.D. Patient Name: ANN MARIE POSADAS MR#: [id number] : 1980 Exam Date: 08/19/2024 Ordering Doctor: SULY Fatima . RADIOLOGY REPORT PROCEDURE: MM TOMOSYNTHESIS SCREENING BI COMPARISON: MM TOMOSYNTHESIS SCREENING BI, 12/16/2022. INDICATIONS: Screening Calculator Name NCI Breast Cancer Risk Assessment Tool 5 Year Breast Cancer Risk 0.80% Lifetime Breast Cancer Risk 12.20% Personal Breast Cancer No Personal Ovarian Cancer No Treatments None Family Cancers Grandmother-maternal with breast cancer at age 84; Aunt-maternal with breast cancer at age 57. LOCATION: [facility] BREAST COMPOSITION: The breasts are extremely dense, which lowers the sensitivity of mammography. FINDINGS: RIGHT BREAST: No significant suspicious finding. LEFT BREAST: No significant suspicious finding. DIAGNOSTIC CATEGORY 1--NEGATIVE. RECOMMENDATIONS: ROUTINE MAMMOGRAM AND CLINICAL EVALUATION IN 12 MONTHS. PLEASE NOTE: A NORMAL MAMMOGRAM DOES NOT EXCLUDE THE POSSIBILITY OF BREAST CANCER. A CLINICALLY SUSPICIOUS PALPABLE LUMP SHOULD BE BIOPSIED. Dictated by: Lucio Mendoza DO on 08/19/2024 at 15:00 Approved by: Lucio Mendoza DO on 08/19/2024 at 15:01 Dictated By: Lucio Mendoza D.O. Signed By: 08/19/24 1503 DD/ 1502 TD/TT: Mother Helper: [facility] Radiology Study observation (narrative) [facility] MM TOMOSYNTHESIS SCREENING B IOrdered By: Radiologist Radiology on 08-19-2024 [facility] Work Phone: IGP,APTIMA HPV,AGE GDLNon AGE GDLN ACOG TESTING Note . [facility] Comment on above: TESTS RESULT FLAG UN ITS REF RANGE LAB Clinician Provided Cytology Information Source.............Cervix;Endocervix No. of containers..01 ThinPrep Vial Age Genevao ACOG Regina... FLAG LEGEND: L-Low Normal,H-High Normal,LL-Alert Low,HH-Alert High <-Panic Low,>-Panic High,A-Abnormal,AA-Critical Abnormal Performed at: 01 =G [address] [address] Shannon Marmolejo MD, HPV APTIMA Negative Negative [facility] Comment on above: This nucleic acid am plification test detects fourteen high- risk HPV types (16,18,31,33,35,39,45,51,52,56,58,59,66,68) without differentiation. Performed at: =[address] [id number] Oven Heater: Shannon Marmolejo MD, Phone: [phone] Performed at: - [address] [id number] Oven Heater: Shannon Marmolejo MD, Phone: [phone] IGP, APTIMA HPV, RFX 16/18,45 Note . [facility] Comment on above: TESTS RESULT FLAG ITS REF RANGE LAB DIAGNOSIS: 02 NEGATIVE FOR INTRAEPITHELIAL LESION OR MALIGNANCY. Specimen adequacy: 02 Satisfactory for evaluation. Endocervical and/or squamous metaplastic cells (endocervical component) are present. Performed by: 02 Flori Burch, Supervisor Forming And Tempering ([facility]) . 02 Note: Note 02 The Pap [...] Low,>-Panic High,A-Abnormal,AA-Critical Abnormal Performed at: [address] [facility] [place] [address] Shannon Marmolejo MD, BRUSH-SPATULA CERVIX ENDOCERVIX [facility] Alanine aminotransferase [En zymatic activity/volume] in Serum or PlasmaOrdered By: Shen Esparza on 01-14-2024 ALT [Catalytic activity/Vol] 19 U/L Normal 7-52 [facility] Comment on above: Performed By: #### L IPID, CBC, CMP, [id number], TSH3 #### [address] Albumin [Mass/volume] in Ser um or Plasma by Bromocresol green (BCG) dye binding methoOrdered By: Shen Esparza on 01-14-2024 Albumin BCG dye [Mass/Vol] 4.3 g/dL 3.5-5.7 [facility] Alkaline phosphatase [Enzyma tic activity/volume] in Serum or PlasmaOrdered By: Shen Esparza on 01-14-2024 ALP [Catalytic activity/Vol] 97 U/L Normal 34-104 [facility] Comment on above: Performed By: #### L IPID, CBC, CMP, [id number], TSH3 #### [address] Aspartate aminotransferase [ Enzymatic activity/volume] in Serum or PlasmaOrdered By: Shen Esparza on 01-14-2024 AST [Catalytic activity/Vol] 29 U/L Normal 13-39 [facility] Comment on above: Performed By: #### L IPID, CBC, CMP, [id number], TSH3 #### [address] Automated basophil %Ordered By: Shen Esparza on 01-14-2024 Basophils/100 WBC (Bld) 0.8 % Normal . [facility] Comment on above: Performed By: #### L IPID, CBC, CMP, [id number], TSH3 #### [address] Automated basophil countOrde red By: Shen Esparza on 01-14-2024 Basophils (Bld) [#/Vol] 0.1 10*3/uL Normal 0.0-0.2 [facility] Comment on above: Result Comment: PERF ORMED BY: [place] [address] PATHOLOGIST GASTROENTEROLOGY TECHNICIAN JOSE ARTEAGA M.D. Performed By: #### L IPID, CBC, CMP, [id number], TSH3 #### [address] Automated blood monocyte cou ntOrdered By: Shen Esparza on 01-14-2024 Monocytes (Bld) [#/Vol] 0.4 10*3/uL Normal 0.0-0.8 [facility] Comment on above: Performed By: #### L IPID, CBC, CMP, [id number], TSH3 #### [facility] [address] Automated eosinophil %Ordere d By: Shen Esparza on 01-14-2024 Eosinophils/100 WBC (Bld) 2.1 % Normal . [facility] Comment on above: Performed By: #### L IPID, CBC, CMP, [id number], TSH3 #### [address] Automated eosinophil countOr dered By: Shen Esparza on 01-14-2024 Eosinophils (Bld) [#/Vol] 0.2 10*3/uL Normal 0.0-0.45 [facility] Comment on above: Performed By: #### L IPID, CBC, CMP, [id number], TSH3 #### [address] Automated monocyte %Ordered By: Shen Esparza on 01-14-2024 Monocytes/100 WBC (Bld) 5.1 % Normal . [facility] Comment on above: Performed By: #### L IPID, CBC, CMP, [id number], TSH3 #### [facility] [address] [place] [address] Automated neutrophil %Ordere d By: Shen Esparza on 01-14-2024 Neutrophils/100 WBC (Bld) 57.6 % Normal . [facility] Comment on above: Performed By: #### L IPID, CBC, CMP, [id number], TSH3 #### [facility] [address] [place] [address] Bilirubin.total [Mass/volume ] in Serum or PlasmaOrdered By: Shen Esparza on 01-14-2024 Bilirubin [Mass/Vol] 0.5 mg/dL Normal 0.3-1.0 [facility] Comment on above: Performed By: #### L IPID, CBC, CMP, [id number], TSH3 #### [facility] [address] [place] [address] [place] Calcium [Mass/volume] in Ser um or PlasmaOrdered By: Shen Esparza on 01-14-2024 Calcium [Mass/Vol] 9.0 mg/dL Normal 8.6-10.3 [facility] Comment on above: Performed By: #### L IPID, CBC, CMP, [id number], TSH3 #### [facility] [address] [place] [address] [place] Carbon dioxide, total [Moles /volume] in Serum or PlasmaOrdered By: Shen Esparza on 01-14-2024 CO2 [Moles/Vol] 27.6 mmol/L Normal 21.0-31.0 [facility] Comment on above: Performed By: #### L IPID, CBC, CMP, [id number], TSH3 #### [facility] [address] [place] [address] [place] Chloride [Moles/volume] in S cody or PlasmaOrdered By: Shen Esparza on 01-14-2024 Chloride [Moles/Vol] 107 mmol/L Normal 98-107 [facility] Comment on above: Performed By: #### L IPID, CBC, CMP, [id number], TSH3 #### [facility] [address] [place] [address] [place] Cholesterol [Mass/volume] in Serum or PlasmaOrdered By: Shen Esparza on 01-14-2024 Cholesterol [Mass/Vol] 136 mg/dL Low 140-200 [facility] Comment on above: Chol less than 200 m g/dl low riskChol 201-239 mg/dl borderline riskChol 240 mg/dl and greater high risk Result Comment: Chol less than 200 mg/dl low risk Chol 201-239 mg/dl borderline risk Chol 240 mg/dl and greater high risk Performed By: #### L IPID, CBC, CMP, [id number], TSH3 #### [facility] [address] [place] [id number] [place] Cholesterol in LDL Calc [Mas s/Vol]Ordered By: Shen Esparza on 01-14-2024 Cholesterol in LDL [Mass/Vol] 50 mg/dL 0-100 [facility] Comment on above: LDL ATP III CLASSIFI CATIONLDL less than 100 mg/dL OptimalLDL 100-129 mg/dL Near or above optimalLDL 130-159 mg/dL Borderline highLDL 160-189 mg/dL HighLDL greater than 189 mg/dL Very high Cholesterol in VLDL Calc [Ma ss/Vol]Ordered By: Shen Esparza on 01-14-2024 Cholesterol in VLDL [Mass/Vol] 42 mg/dL [facility] Complete Blood Count Auto Di ffon 01-14-2024 Mean Corpuscular HGB Conc 35.2 g/dL High 32.0-35.0 [facility] Comment on above: Performed By: #### L IPID, CBC, CMP, [id number], TSH3 #### [address] NRBC% 0.1 /100{WBC} Normal 0-0.5 [facility] Comment on above: Performed By: #### L IPID, CBC, CMP, [id number], TSH3 #### [address] Comprehensive Metabolic Pane edith 01-14-2024 Albumin [Mass/Vol] 4.3 g/dL Normal 3.5-5.7 [facility] Comment on above: Performed By: #### L IPID, CBC, CMP, [id number], TSH3 #### [address] GFR/1.73 sq M.predicted MDRD (S/P/Bld) [Vol rate/Area] mL/min/{1.73_m2} Normal [facility] Comment on above: Performed By: #### L IPID, CBC, CMP, [id number], TSH3 #### [address] Creatinine [Mass/volume] in Serum or PlasmaOrdered By: Shen Esparza on 01-14-2024 Creatinine [Mass/Vol] 0.55 mg/dL Low 0.60-1.20 [facility] Comment on above: Performed By: #### L IPID, CBC, CMP, [id number], TSH3 #### [facility] [address] Erythrocyte distribution wid th [Ratio] by Automated countOrdered By: Shen Esparza on 01-14-2024 Erythrocyte distribution width (RBC) [Ratio] 11.9 % Normal 11.9-15.3 [facility] Comment on above: Performed By: #### L IPID, CBC, CMP, [id number], TSH3 #### [facility] [address] Erythrocytes [#/volume] in B lood by Automated countOrdered By: Shen Esparza on 01-14-2024 RBC (Bld) [#/Vol] 4.23 10*6/uL Normal 3.60-5.00 [facility] Comment on above: Performed By: #### L IPID, CBC, CMP, [id number], TSH3 #### [facility] [address] Glucose [Mass/volume] in Ser um or PlasmaOrdered By: Shen Esparza on 01-14-2024 Glucose [Mass/Vol] 94 mg/dL Normal 70-100 [facility] Comment on above: ADA recommended refe rence rangeRandom Glucose Reference Range is dependent on time and content of last meal. Glucose of more than 200 mg/dL in a nonstressed, ambulatory subject supports the diagnosis of Diabetes Mellitus. Result Comment: [place] Glucose Reference Range is dependent on time and content of last meal. Glucose of more than 200 mg/dL in a nonstressed, ambulatory subject supports the diagnosis of Diabetes Mellitus. ADA recommended reference range Performed By: #### L IPID, CBC, CMP, [id number], TSH3 #### [facility] [address] Hematocrit [Volume Fraction] of Blood by Automated countOrdered By: Shen Esparza on 01-14-2024 Hematocrit (Bld) [Volume fraction] 39.0 % Normal 34.0-46.4 [facility] Comment on above: Performed By: #### L IPID, CBC, CMP, [id number], TSH3 #### [facility] [address] Hemoglobin [Mass/volume] in BloodOrdered By: Shen Esparza on 01-14-2024 Hemoglobin (Bld) [Mass/Vol] 13.7 g/dL Normal 11.8-15.4 [facility] Comment on above: Performed By: #### L IPID, CBC, CMP, [id number], TSH3 #### [facility] [address] Leukocytes [#/volume] correc celso for nucleated erythrocytes in Blood by Automated counOrdered By: Shen Esparza on 01-14-2024 WBC corrected for nucl RBC Auto (Bld) [#/Vol] 7.9 10*3/uL 3.8-11.6 [facility] Leukocytes [#/volume] in Blo od by Automated countOrdered By: Shen Esparza on 01-14-2024 WBC (Bld) [#/Vol] 7.9 10*3/uL Normal 3.8-11.6 [facility] Comment on above: Performed By: #### L IPID, CBC, CMP, [id number], TSH3 #### [address] Lipid Panelon 01-14-2024 LDL Cholesterol,Calculated 50 mg/dL Normal 0-100 [facility] Comment on above: Result Comment: LDL ATP III CLASSIFICATION LDL less than 100 mg/dL Optimal LDL 100-129 mg/dL Near or above optimal LDL 130-159 mg/dL Borderline high LDL 160-189 mg/dL High LDL greater than 189 mg/dL Very high Performed By: #### L IPID, CBC, CMP, [id number], TSH3 #### [facility] [address] Triglyceride w/Reflex 213 mg/dL High 0-149 [facility] Comment on above: Result Comment: TRIG ATP III CLASSIFICATION TRIG less than 150 mg/dL Normal TRIG 150-199 mg/dL Borderline high TRIG 200-500 mg/dL High TRIG greater than 500 mg/dL Very high Standard traceable to the Center for Disease Conrtrol and Prevention (CDC) test method. Performed By: #### L IPID, CBC, CMP, [id number], TSH3 #### [address] VLDL CHOLESTEROL 42 mg/dL Normal [facility] Comment on above: Performed By: #### L IPID, CBC, CMP, [id number], TSH3 #### [address] Lymphocytes [#/volume] in Bl ood by Automated countOrdered By: Shen Esparza on 01-14-2024 Lymphocytes (Bld) [#/Vol] 2.7 10*3/uL Normal 1.00-4.8 [facility] Comment on above: Performed By: #### L IPID, CBC, CMP, [id number], TSH3 #### [address] Lymphocytes/100 leukocytes i n Blood by Automated countOrdered By: Shen Esparza on 01-14-2024 Lymphocytes/100 WBC (Bld) 34.4 % Normal . [facility] Comment on above: Performed By: #### L IPID, CBC, CMP, [id number], TSH3 #### [address] MCH [Entitic mass] by Automa celso countOrdered By: Shen Esparza on 01-14-2024 MCH (RBC) [Entitic mass] 32.4 pg Normal 24.7-34.3 [facility] Comment on above: Performed By: #### L IPID, CBC, CMP, [id number], TSH3 #### [address] MCHC Auto (RBC) [Mass/Vol]Or dered By: Shen Esparza on 01-14-2024 MCHC (RBC) [Mass/Vol] 35.2 g/dL High 32.0-35.0 [facility] MCV [Entitic volume] by Auto mated countOrdered By: Shen Esparza on 01-14-2024 MCV (RBC) [Entitic vol] 92.1 fL Normal 80-100 [facility] Comment on above: Performed By: #### L IPID, CBC, CMP, [id number], TSH3 #### [address] Neutrophils [#/volume] in Bl ood by Automated countOrdered By: Shen Esparza on 01-14-2024 Neutrophils (Bld) [#/Vol] 4.5 10*3/uL Normal 1.8-7.7 [facility] Comment on above: Performed By: #### L IPID, CBC, CMP, [id number], TSH3 #### [address] No Panel InformationOrdered By: Shen Esparza on 01-14-2024 Estimated GFR (CKD-EPI) > 60.0 mL/Min [facility] Creatinine Clearance (Chem N/A [facility] Nucleated erythrocytes [Pres ence] in Blood by Automated countOrdered By: Shen Esparza on 01-14-2024 Nucleated RBC Auto Ql (Bld) 0.1 /100{WBC} 0-0.5 [facility] Platelet mean volume [Entiti c volume] in Blood by Automated countOrdered By: Shen Esparza on 01-14-2024 Platelet mean volume (Bld) [Entitic vol] 8.1 fL Normal 6.3-10.7 [facility] Comment on above: Performed By: #### L IPID, CBC, CMP, [id number], TSH3 #### [address] Platelets [#/volume] in Bloo d by Automated countOrdered By: Shen Esparza on 01-14-2024 Platelets (Bld) [#/Vol] 216 10*3/uL Normal 150-450 [facility] Comment on above: Performed By: #### L IPID, CBC, CMP, [id number], TSH3 #### [address] Potassium [Moles/volume] in Serum or PlasmaOrdered By: Shen Esparza on 01-14-2024 Potassium [Moles/Vol] 4.2 mmol/L Normal 3.5-5.1 [facility] Comment on above: Performed By: #### L IPID, CBC, CMP, [id number], TSH3 #### [facility] [address] [place] [address] Protein [Mass/volume] in Ser um or PlasmaOrdered By: Shen Esparza on 01-14-2024 Protein [Mass/Vol] 6.7 g/dL Normal 6.4-8.9 [facility] Comment on above: Performed By: #### L IPID, CBC, CMP, [id number], TSH3 #### [address] Serum globulin measurement b y calculation (mass/volume)Ordered By: Shen Esparza on 01-14-2024 Globulin (S) [Mass/Vol] 2.4 g/dL Normal [facility] Comment on above: Performed By: #### L IPID, CBC, CMP, [id number], TSH3 #### [address] Serum or plasma albumin/glob ulin mass ratioOrdered By: Shen Esparza on 01-14-2024 Albumin/Globulin [Mass ratio] 1.8 {ratio} [facility] Comment on above: Performed By: #### L IPID, CBC, CMP, [id number], TSH3 #### [address] Serum or plasma anion gap de terminationOrdered By: Shen Esparza on 01-14-2024 Anion gap [Moles/Vol] 10.6 mmol/L Normal 6.0-15.0 [facility] Comment on above: Performed By: #### L IPID, CBC, CMP, [id number], TSH3 #### [address] Serum or plasma high density lipoprotein (HDL) cholesterol measurementOrdered By: Shen Esparza on 01-14-2024 Cholesterol in HDL [Mass/Vol] 43 mg/dL Normal 23-92 [facility] Comment on above: HDL CHOL ATP-III CLA SSIFICATION Cardiovascular RiskHDL > or equal to 60 mg/dL LOWHDL < 40 mg/dL HIGH Result Comment: HDL CHOL ATP-III CLASSIFICATION Cardiovascular Risk HDL > or equal to 60 mg/dL LOW HDL < 40 mg/dL HIGH Performed By: #### L IPID, CBC, CMP, [id number], TSH3 #### [facility] [address] Serum or plasma total choles terol/high density lipoprotein (HDL) cholesterol mass ratOrdered By: Shen Esparza on 01-14-2024 Cholesterol.total/Choles terol in HDL [Mass ratio] 3.2 {ratio} Normal <5.0 [facility] Comment on above: Performed By: #### L IPID, CBC, CMP, [id number], TSH3 #### [facility] [address] [place] [address] Sodium [Moles/volume] in Ser um or PlasmaOrdered By: Shen Esparza on 01-14-2024 Sodium [Moles/Vol] 141 mmol/L Normal 136-145 [facility] Comment on above: Performed By: #### L IPID, CBC, CMP, [id number], TSH3 #### [address] Thyrotropin [Units/volume] i n Serum or PlasmaOrdered By: Shen Esparza on 01-14-2024 TSH Qn 2.25 m[IU]/L Normal 0.45-5.33 [facility] Comment on above: Performed By: #### L IPID, CBC, CMP, [id number], TSH3 #### [facility] [address] [place] [address] Triglyceride [Mass/volume] i n Serum or PlasmaOrdered By: Shen Esparza on 01-14-2024 Triglyceride [Mass/Vol] 213 mg/dL High 0-149 [facility] Comment on above: TRIG ATP III CLASSIF ICATIONTRIG less than 150 mg/dL NormalTRIG 150-199 mg/dL Borderline highTRIG 200-500 mg/dL High TRIG greater than 500 mg/dL Very highStandard traceable to the Center for Disease Conrtrol and Prevention (CDC) test method. Urea nitrogen [Mass/volume] in Serum or PlasmaOrdered By: Shen Esparza on 01-14-2024 Urea nitrogen [Mass/Vol] 9 mg/dL Normal 7-25 [facility] Comment on above: Performed By: #### L IPID, CBC, CMP, [id number], TSH3 #### [facility] [address] [place] [id number] [facility] Vitamin D 25 Hydroxy Totalon 01-14-2024 Vitamin D 25 Hydroxy Total 18.2 ng/mL Low 30-100 [facility] Comment on above: Result Comment: BRIGITTE MIN D STATUS 25(OH)VITAMIN D RANGE (ng/mL) Deficient <20 Insufficient 20 to <30 Sufficient 30 to 100 Reference: Margarita Slade, Graham ACUÑA, et al. Evaluation,treatment, and prevention of vitamin D deficiency; an Endocrine Society clinical practice guideline. JCEM. 2010; 96(7):1911-30. PERFORMED BY: [place] [address] PATHOLOGIST GASTROENTEROLOGY TECHNICIAN JOSE ARTEAGA M.D. Performed By: #### L IPID, CBC, CMP, [id number], TSH3 #### [facility] [address] [place] [id number] [facility] Vitamin D+Metabolites [Mass/ volume] in Serum or PlasmaOrdered By: Shen Esparza on 01-14-2024 Vitamin D+Metabolites [Mass/Vol] 18.2 ng/mL Low 30-100 [facility] Comment on above: VITAMIN D STATUS 25( [place])VITAMIN D RANGE (ng/mL) Deficient <20 Insufficient 20 to <30Sufficient 30 to 100Reference: Margarita Slade, Graham ACUÑA et al. Evaluation,treatment, and prevention of vitamin D deficiency; an Endocrine Society clinical practice guideline. JCEM. 2010; 96(7):1911-30. PAP ACOG PANEL 2: 30 to 65on 09-03-2021 . . Normal [facility] Comment on above: Result Comment: Perf ormed at: WB Performed By: #### [id number] #### [facility] [address] [place] [address] Dr. Carmelita Becerra Age Gdln ACOG Testing 30-65 [facility] Comment on above: Performed By: #### [id number] #### [facility] [address] [address] [address] Carmelita Becerra DIAGNOSIS: Comment [facility] Comment on above: Result Comment: NEGA TIVE FOR INTRAEPITHELIAL LESION OR MALIGNANCY. Performed at: WB Performed By: #### [id number] #### [facility] [address] [place] [address] Dr. Carmelita Becerra HPV Aptima Negative Normal Negative [facility] Comment on above: Result Comment: This nucleic acid amplification test detects fourteen high-risk HPV types (16,18,31,33,35,39,45,51,52,56,58,59,66,68) without differentiation. Performed at: =G Performed By: #### [id number] #### [facility] [address] [place] [address] Dr. Carmelita Becerra Methodology: Comment [facility] Comment on above: Result Comment: This liquid based ThinPrep(R) pap test was screened with the use of an image guided system. Performed at: WB Performed By: #### [id number] #### [facility] [address] [place] [address] Dr. Carmelita Becerra Note: Comment [facility] Comment on above: Result Comment: The Pap smear is a screening test designed to aid in the detection of premalignant and malignant conditions of the uterine cervix. It is not a diagnostic procedure and should not be used as the sole means of detecting cervical cancer. Both false-positive and false-negative reports do occur. . Performed at: WB Performed By: #### [id number] #### [facility] [address] [place] [address] Dr. Carmelita Becerra Performed by: Comment Normal [facility] Comment on above: Result Comment: Giuliana Sparks, Supervisor Forming And Tempering (ASCP) Performed at: WB Performed By: #### [id number] #### [facility] [address] [place] [address] Dr. Carmelita Becerra Specimen adequacy: Comment Normal [facility] Comment on above: Result Comment: Sati sfactory for evaluation. Endocervical and/or squamous metaplastic cells (endocervical component) are present. Performed at: WB Performed By: #### [id number] #### [facility] [address] [place] [address] Dr. Carmelita Becerra PAP ACOG PANEL 2: 30 to 65on 08-25-2021 . . Normal [facility] Comment on above: Result Comment: Perf ormed at: WB Performed By: #### [id number] #### [facility] [address] [place] [address] Dr. Carmelita Becerra Age Gdln ACOG Testing 30-65 [facility] Comment on above: Performed By: #### [id number] #### [facility] [address] [place] [address] Dr. Carmelita Becerra DIAGNOSIS: Comment Normal [facility] Comment on above: Result Comment: NEGA TIVE FOR INTRAEPITHELIAL LESION OR MALIGNANCY. Performed at: WB Performed By: #### [id number] #### [facility] [address] [place] [address] Dr. Carmelita Becerra HPV Aptima Negative Normal Negative [facility] Comment on above: Result Comment: This nucleic acid amplification test detects fourteen high-risk HPV types (16,18,31,33,35,39,45,51,52,56,58,59,66,68) without differentiation. Performed at: =G Performed By: #### [id number] #### [facility] [address] [place] [address] Dr. Carmelita Becerra Methodology: Comment Normal [facility] Comment on above: Result Comment: This liquid based ThinPrep(R) pap test was screened with the use of an image guided system. Performed at: WB Performed By: #### [id number] #### [facility] [address] [address] [address] Carmelita Becerra Note: Comment Normal [facility] Comment on above: Result Comment: The Pap smear is a screening test designed to aid in the detection of premalignant and malignant conditions of the uterine cervix. It is not a diagnostic procedure and should not be used as the sole means of detecting cervical cancer. Both false-positive and false-negative reports do occur. . Performed at: WB Performed By: #### [id number] #### [facility] [address] [address] [address] Carmelita Becerra Performed by: Comment Normal [facility] Comment on above: Result Comment: Giuliana Sparks, Supervisor Forming And Tempering (ASCP) Performed at: WB Performed By: #### [id number] #### [facility] [address] [address] [address] Carmelita Becerra Specimen adequacy: Comment Normal [facility] Comment on above: Result Comment: Sati sfactory for evaluation. Endocervical and/or squamous metaplastic cells (endocervical component) are present. Performed at: WB Performed By: #### [id number] #### [facility] [address] [address] [address] Carmelita Becerra Vital Signs Date Time Vital Sign Value Performing Clinician Facility 07-19-2024 12:53-0500 Body height 162.56 cm [facility] 07-19-2024 12:53-0500 Body mass index (BMI) [Ratio] 33.6 kg/m2 [facility] 07-19-2024 12:53-0500 Body weight 88.9 kg [facility] 07-19-2024 12:53-0500 Diastolic blood pressure 86 mm[Hg] [facility] 07-19-2024 12:53-0500 Heart rate 72 /min [facility] 07-19-2024 12:53-0500 Respiratory rate 16 /min [facility] 07-19-2024 12:53-0500 SaO2% (BldA) [Mass fraction] 98 % [facility] 07-19-2024 12:53-0500 Systolic blood pressure 134 mm[Hg] [facility] 07-15-2024 10:46-0500 Body weight 89 kg Vera TUBBS Work Phone: [facility] 07-15-2024 10:46-0500 Diastolic blood pressure 80 mm[Hg] Vera TUBBS Work Phone: [facility] 07-15-2024 10:46-0500 Systolic blood pressure 126 mm[Hg] Vera TUBBS Work Phone: [facility] 01-15-2024 13:10-0400 Body height 162.56 cm DO Shen Kirills Work Phone: [facility] 01-15-2024 13:10-0400 Body mass index (BMI) [Ratio] 74.9 kg/m2 DO Shen Kuns Work Phone: [facility] 01-15-2024 13:10-0400 Body weight 198 kg DO Shen Kirills Work Phone: [facility] 01-15-2024 13:10-0400 Diastolic blood pressure 82 mm[Hg] DO Shen Kirills Work Phone: [facility] 01-15-2024 13:10-0400 Heart rate 66 /min DO Shen Kuns Work Phone: [facility] 01-15-2024 13:10-0400 Respiratory rate 16 /min DO Shen Kirills Work Phone: [facility] 01-15-2024 13:10-0400 SaO2% (BldA) [Mass fraction] 98 % DO Shen Kuns Work Phone: [facility] 01-15-2024 13:10-0400 Systolic blood pressure 130 mm[Hg] DO Shen Kuns Work Phone: [facility] 07-17-2023 13:36-0500 Body height 162.56 cm [facility] 07-17-2023 13:36-0500 Body mass index (BMI) [Ratio] 33.7 kg/m2 [facility] 07-17-2023 13:36-0500 Body weight 89.35 kg [facility] 07-17-2023 13:36-0500 Diastolic blood pressure 80 mm[Hg] [facility] 07-17-2023 13:36-0500 Heart rate 87 /min [facility] 07-17-2023 13:36-0500 SaO2% (BldA) [Mass fraction] 98 % [facility] 07-17-2023 13:36-0500 Systolic blood pressure 126 mm[Hg] [facility] 06-27-2023 13:40-0500 Body height 162.56 cm Bonita Parra Other [facility] 06-27-2023 13:40-0500 Body mass index (BMI) [Ratio] 33.85 kg/m2 Bonita Parra Other [facility] Other 06-27-2023 13:40-0500 Body temperature 98.4 [degF] Bonita Parra Other [facility] Other 06-27-2023 13:40-0500 Body weight 89.45 kg Bonita Parra Other [facility] Other 06-27-2023 13:40-0500 Body weight 89.44 kg [facility] 06-27-2023 13:40-0500 Diastolic blood pressure 96 mm[Hg] Bonita Parra Other [facility] 06-27-2023 13:40-0500 Respiratory rate 18 /min Bonita Parra Other [facility] Other 06-27-2023 13:40-0500 SaO2% (BldA) [Mass fraction] 99 % Bonita Parra Other [facility] Other 06-27-2023 13:40-0500 Systolic blood pressure 141 mm[Hg] Bonita Parra Other [facility] 12-05-2022 12:30-0400 Body height 162.56 cm Shen Roymartinez Other [facility] Other 12-05-2022 12:30-0400 Body mass index (BMI) [Ratio] 33.3 kg/m2 Shen Kirillmartinez Other [facility] Other 12-05-2022 12:30-0400 Body weight 88 kg Shen Esparza Other [facility] Other 12-05-2022 12:30-0400 Diastolic blood pressure 80 mm[Hg] Shen Esparza Other [facility] Other 12-05-2022 12:30-0400 Respiratory rate 18 /min Shen Esparza Other [facility] Other 12-05-2022 12:30-0400 SaO2% (BldA) [Mass fraction] 98 % Shen Esparza Other [facility] Other 12-05-2022 12:30-0400 Systolic blood pressure 112 mm[Hg] Shen Esparza Other [facility] Other 09-24-2022 11:30-0400 Body height 162.56 cm Bonita Parra Other [facility] Other 09-24-2022 11:30-0400 Body mass index (BMI) [Ratio] 32.61 kg/m2 Bonita Parra Other [facility] Other 09-24-2022 11:30-0400 Body temperature 97.7 [degF] Bonita Parra Other [facility] Other 09-24-2022 11:30-0400 Body weight 86.18 kg Bonita Parra Other [facility] Other 09-24-2022 11:30-0400 Respiratory rate 18 /min Bonita Parra Other [facility] Other 09-24-2022 11:30-0400 SaO2% (BldA) [Mass fraction] 98 % Bnoita Parra Other [facility] Other 06-06-2022 14:00-0500 Body height 162.56 cm Shen Esparza Other [facility] Other 06-06-2022 14:00-0500 Body mass index (BMI) [Ratio] 33.3 kg/m2 Shen Esparza Other [facility] Other 06-06-2022 14:00-0500 Body weight 88 kg Shen Esparza Other [facility] Other 06-06-2022 14:00-0500 Diastolic blood pressure 80 mm[Hg] Shen Esparza Other [facility] Other 06-06-2022 14:00-0500 Respiratory rate 18 /min Shen Esparza Other [facility] Other 06-06-2022 14:00-0500 SaO2% (BldA) [Mass fraction] 99 % Shen Esparza Other [facility] Other 06-06-2022 14:00-0500 Systolic blood pressure 122 mm[Hg] Shen Esparza Other [facility] Other 11-19-2021 13:30-0400 Body height 162.56 cm Shen Roymartinez Other [facility] Other 11-19-2021 13:30-0400 Body mass index (BMI) [Ratio] 32.09 kg/m2 Shenrolan Roymartinez Other [facility] Other 11-19-2021 13:30-0400 Body weight 84.82 kg Shen Isaias Other [facility] Other 11-19-2021 13:30-0400 Diastolic blood pressure 70 mm[Hg] Shen Isaias Other [facility] Other 11-19-2021 13:30-0400 Respiratory rate 16 /min Shen Esparza Other [facility] Other 11-19-2021 13:30-0400 SaO2% (BldA) [Mass fraction] 99 % Shen Esparza Other [facility] Other 11-19-2021 13:30-0400 Systolic blood pressure 122 mm[Hg] Shen Isaias Other [facility] Other 05-21-2021 13:30-0500 Body height 162.56 cm Shen Isaias Other [facility] Other 05-21-2021 13:30-0500 Body mass index (BMI) [Ratio] 33.12 kg/m2 Shen Esparza Other [facility] Other 05-21-2021 13:30-0500 Body temperature 97.2 [degF] Shen Esparza Other [facility] Other 05-21-2021 13:30-0500 Body weight 87.54 kg Shen Esparza Other [facility] Other 05-21-2021 13:30-0500 Diastolic blood pressure 82 mm[Hg] Shen Esparza Other [facility] Other 05-21-2021 13:30-0500 Respiratory rate 18 /min Shen Esparza Other [facility] Other 05-21-2021 13:30-0500 SaO2% (BldA) [Mass fraction] 99 % Shen Esparza Other [facility] Other 05-21-2021 13:30-0500 Systolic blood pressure 128 mm[Hg] Shen Esparza Other [facility] Other Encounters Encounter Date Encounter Type Care Provider Facility Start: 08-19-2024 End: 08-19-2024 Clinisync Result Encounter Vera TUBBS Work Phone: [facility] Unsolicited Start: 08-19-2024 End: 08-19-2024 Clinisync Result Encounter Vera TUBBS Work Phone: [facility] Unsolicited Start: 07-19-2024 End: 07-19-2024 ambulatory [facility] Work Phone: Start: 07-19-2024 End: 07-19-2024 Patient encounter procedure [facility] [place] Work Phone: Start: 07-15-2024 End: 07-15-2024 Bamboo flowsheet Vera TUBBS Work Phone: [facility] Start: 07-15-2024 End: 07-20-2024 Bamboo flowsheet Vera TUBBS Work Phone: [facility] Start: 07-15-2024 End: 07-20-2024 Clinisync Result Encounter Vera TUBBS Work Phone: [facility] Unsolicited Start: 07-15-2024 End: 07-15-2024 ambulatory VERA FATIMA Not Available Start: 07-15-2024 End: 07-15-2024 Patient encounter procedure Vera TUBBS Work Phone: [facility] Work Phone: Start: 07-15-2024 End: 07-15-2024 Periodic preventive med est patient 40-64yrs Vera TUBBS Work Phone: [facility] Comment on above: Well woman exam with routine gynecological exam; Breast cancer screening by mammogram Start: 01-15-2024 End: 01-15-2024 ambulatory DO Shen Esparza Work Phone: [facility] Work Phone: Start: 01-15-2024 End: 01-15-2024 Patient encounter procedure DO Shen Esparza Work Phone: [facility] [place] Work Phone: Start: 01-14-2024 End: 01-14-2024 Patient encounter procedure DO Shen Esparza Work Phone: [facility] [place] Work Phone: Start: 01-14-2024 End: 01-14-2024 ambulatory DO Shen Esparza Work Phone: [facility] Work Phone: Start: 07-17-2023 End: 07-17-2023 ambulatory [facility] Work Phone: Start: 07-17-2023 End: 07-17-2023 Patient encounter procedure [facility] [place] Work Phone: Start: 06-27-2023 End: 06-27-2023 ambulatory Bonita Parra Other [facility] Other Start: 06-27-2023 Office outpatient vi sit 15 minutes Bonita Parra [facility] Start: 06-27-2023 End: 06-27-2023 Patient encounter procedure [facility]- Start: 01-07-2023 End: 01-07-2023 ambulatory Shen Esparza Other [facility] Other Start: 01-07-2023 Telephone encounter Shen Esparza [facility] [place] Start: 12-05-2022 End: 12-05-2022 ambulatory Shen Esparza Other [facility] Other Start: 12-05-2022 Office outpatient vi sit 15 minutes Shen Esparza [facility] [place] Start: 09-24-2022 End: 09-24-2022 ambulatory Bonita Parra Other [facility] Other Start: 09-24-2022 Office outpatient vi sit 15 minutes Bonita Parra [facility] Start: 09-24-2022 Telephone encounter Shen Esparza [facility] Start: 06-06-2022 End: 06-06-2022 ambulatory Shen Esparza Other [facility] Other Start: 06-06-2022 Office outpatient vi sit 15 minutes Shen Esparza [facility] [place] Start: 05-14-2022 End: 05-14-2022 ambulatory Shen Esparza Other [facility] Other Start: 05-14-2022 Telephone encounter Shen Esparza [facility] [place] Start: 11-19-2021 End: 11-19-2021 ambulatory Shen Esparza Other [facility] Other Start: 11-19-2021 Office outpatient vi sit 25 minutes Shen Esparza [facility] Start: 11-16-2021 End: 11-16-2021 ambulatory Shen Isaias Other [facility] Other Start: 11-16-2021 Telephone encounter Shen Esparza [facility] Start: 10-09-2021 End: 10-09-2021 ambulatory Shen Esparza Other [facility] Other Start: 10-09-2021 Telephone encounter Shen Esparza [facility] Start: 08-21-2021 End: 08-21-[address] JASON PADILLA Facility: Start: 05-21-2021 End: 05-21-2021 ambulatory Shen Esparza Other [facility] Other Start: 05-21-2021 Office outpatient vi sit 15 minutes Shen Esparza [facility] Procedures Date Procedure Procedure Detail Performing Clinician Start: 08-19-2024 MM TOMOSYNTHESIS SCR EENING BI Vera TUBBS Work Phone: Start: 07-15-2024 IGP,APTIMA HPV,AGE GDLN Vera TUBBS Work Phone: Plan of Treatment Date Care Activity Detail Author Start: 07-15-2024 End: 09-12-2025 MG Breast - bilateral Screening Bilateral screening mammogram Imaging Routine Breast cancer screening by mammogram Expected: 07/15/2024 (Approximate), Expires: 09/12/2025 [facility] Work Phone: Comment on above: Expected: 07/15/2024 (Approximate), Expires: 09/12/2025 Comprehensive metabo lic 1999 panel - Serum or Plasma [facility] Comprehensive metabo lic 1999 panel - Serum or Plasma [facility] THIN PREP TIS PAP AN D HR HPV DNA THIN PREP TIS PAP AND HR HPV DNA Pathology and Cytology Routine Well woman exam with routine gynecological exam Ordered: 07/15/2024 [facility] Comment on above: Ordered: 07/15/2024 [facility] Immunizations Immunization Date Immunization Notes Care Provider Roseanna rodney NEGATED: Highlighted row has not occurred!09-18-2018 influenza, seasonal, injectable Patient Objection Shen Esparza Other [facility] Payers Date Payer Category Payer Self-pay [id number] 2022 Medicaid [facility] [id number] 2022 Medicaid [id number] 1982 Unknown [id number] 1982 Unknown [id number] 1959 Unknown [id number] [employer] ( and others) [facility] [id number] Unknown [id number] Unknown [place] [employer]/[place] [id number] Unknown [id number] Social History Date Type Detail Facility Unknown if ever smoked [facility] Other Sex Assigned At [facility] Other Start: 06-19-2018 End: 01-15-2024 Tobacco smoking status NHIS Smoker (finding) [facility] Start: 1980 Sex Assigned At Female F [facility] Tobacco smoking status MSIS Tobacco smoking consumption unknown [facility] Start: 1980 Sex assigned at Not on file N [facility] Start: 07-19-2024 Sex Female (finding) [facility] Clinical Notes 11-24-2011 to 07-15-2024 SULY Laboy - 07/15/2024 10:00 AM EST Note Date & Type Note Facility 07-15-2024 History of Presen t illness Narrative Reason for Appointment: Patient ID: Ann Marie Posadas is a 44 y.o. female who [...] nursing note reviewed. Exam conducted with a visual display associate present. Vitals: There is no height or [...] of: SULY Laboy documented in this encounter [facility] 06-27-2023 Evaluation note Encounter Date Diagnosis [...] understanding and is agreeable to treatment plan [facility] Other 08-15-2023 Evaluation note* Encounter Date Diagnosis Assessment Notes Treatment Notes Treatment Clinical Notes Dec, Anxiety (ICD-10 - F41.9) [facility] Other 07-13-2023 Evaluation note* Encounter Date Diagnosis Assessment Notes Treatment Notes Treatment Clinical Notes Nov, Encounter for screen ing mammogram for malignant neoplasm of breast (ICD-10 - Z12.31) Baseline mammogram has been ordered for her today. 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 I have encourgaged patient [...] Educated on appropriate usage of rescue inhaler [facility] Other 05-02-2023 Evaluation note* Encounter Date Diagnosis [...] understanding and is agreeable to treatment plan. [facility] Other 01-12-2023 Evaluation note* Encounter Date Diagnosis [...] now. She is to continue as directed. [facility] Other 12-20-2022 Evaluation note* Encounter Date Diagnosis Assessment Notes Treatment Notes Treatment Clinical Notes Apr, Anxiety (ICD-10 - F41.9) [facility] Other 06-27-2022 Evaluation note* Encounter Date Diagnosis [...] on hand, she does not take often. [facility] Other 06-24-2022 Evaluation note* Encounter Date Diagnosis Assessment Notes Treatment Notes Treatment Clinical Notes Oct, Hypertension (ICD-10 - I10) [facility] Other 05-17-2022 Evaluation note* Encounter Date Diagnosis Assessment Notes Treatment Notes Treatment Clinical Notes September, Anxiety (ICD-10 - F41.9) [facility] Other 12-27-2021 Evaluation note* Encounter Date Diagnosis Assessment Notes Treatment Notes Treatment Clinical Notes Apr, Hypertension (ICD-10 - I10) Blood pressure is satisfactory, encouraged her to continue with medications as prescribed. Encouraged her to have her pressure take when she can, call with any concerns. Will see her back in 6 months. [facility] Other 07-01-2012 History general Narrative - Reported* Type Description Date Medical History hypertension Surgical History D & C miscarriage/ Dr. Padilla 2008 Surgical History D & C molar / Dr. Liliana ann 11/2011 Surgical History Tubal Ligation - Dr. Padilla 2018 [facility] Other 07-01-2012 History general Narrative - Reported* Type Description Date Medical History hypertension Medical History anxiety Surgical History D & C miscarriage/ Dr. Padilla 2008 Surgical History D & C molar / Dr. Liliana ann 11/2011 Surgical History Tubal Ligation - Dr. Padilla 2018 Hospitalization History child [facility] Other [facility] Evaluation note* Diagnosis Onset Date Resolution Status Anxiety and depression acute Hyperlipidemia acute Hypertension acute Lymphadenopathy of right cervical region acute [facility] Work Phone: Evaluation noteNo assessment information available [facility] Work Phone: Evaluation note* Author Marla Santacruz [facility] Authored January 15, 2024 1: 20pm The above note written by ANDRES Ruvalcaba acting as human recorder, note dictated by Dr. Shen Esparza. [facility] Work Phone: Evaluation note* Diagnosis Well woman exam with routine gynecological exam Routine gynecological examination Breast cancer screening by mammogram [facility] Diagnosis Onset Date Resolution Status Admit Date Anxiety and depression acute Fe bruary 2024 12:21pm Hypertension acute June 12:21pm [facility] Work Phone: Summary Purpose Family History Relationship [...] and Reason for Visit Chief Complaint Poss [facility] [place] [facility], Expos ure To [facility] 6 MONTH FOLLOW UP Reason for [...] CREATED AUTHOR AUTHOR'S ORGANIZ ATION 01/15/2024 [facility] DATE CREATED AUTHOR AUTHOR'S ORGANIZ ATION 07/17/2024 [facility] dical Specialists EPIC REASON FOR VISIT (unrecogniz [...] January 15, 2024 End: January 15, 2024 Dramatic Reader Relationship Specialty Start Date End Date Shen Esparza MD [facility] [id number] PCP - General 07/15/24 Dramatic Reader Relationship Specialty Start Date End Date Shen Esparza MD [address] [place] [id number] PCP - General 07/15/24 Team Status: Inactive Member Role Status Dates Shen Esparza , Primary Care Provide r, Attending Provider Active Start: July 19, 2024 End: July 19, 2024 Dramatic Reader Relationship Specialty Start Date End Date Shen Esparza MD [address] [place] [address] PCP - General 07/15/24 Goals (unrecognized section [...] BE BASED ON THE PRIMARY CLINICAL RECORDS. [facility]. provides no warranty or guarantee of the accuracy or completeness of information in this document.
[2025-01-08 11:10] LABS: Anion Gap 13.9; Blood Urea Nitrogen 8.0 mg/dL (7.0-18.0); Calcium 8.8 mg/dL (8.5-10.1); Carbon Dioxide 26.3 mmol/L (21.0-32.0); Chloride 103 mmol/L (98-107); Estimated GFR (African America >60 (>=60 mL/min/1.73m^2); Estimated GFR (Non-African Ame >60 (>=60 mL/min/1.73m^2); Glucose 97 mg/dL (74-106); Potassium 4.2 mmol/L (3.5-5.1); Sodium 139 mmol/L (136-145)
[2025-01-08 11:14] LABS: INR 1.00; Partial Thromboplastin Time 28.9 sec (22.3-36.2); Prothrombin Time 10.6 sec (9.0-11.6)
[2025-01-08 11:16] LABS: Cast Seen? NONE SEEN #/LPF (NONE SEEN); Crystals Seen? None Seen #/HPF (None Seen); Urine Culture Indicated YES-FRMC
--- NOTE | 2025-01-08 11:16 | US_ITS ---
The [address] [address] Patient Name: ANN MARIE RODRIGUEZ MRN: [id number] date: 1980 Sex: F Assigned Patient Location: ER Current Patient Location: ER Accession/Order Number: [id number] Exam Date: 01/08/2025 12:26 Report Date: 01/08/2025 14:31 At the request of: DEBBIE VELASQUEZ MD Procedure: US pelvis transvaginal Pelvic ultrasound. Reason for exam: 3 weeks of heavily vaginal bleeding. Comparison: none Technique: Transvaginal imaging of the uterus and ovaries was also obtained. Additional spectral Doppler analysis of the ovaries was also obtained. Findings: Uterus measures 7.6 x 3.8 x 4.2 cm. 2 fibroids are noted largest measuring 1.2 x 0.8 x 1.0 cm involving the fundus. Endometrium measures 1 cm without focal abnormality. No free fluid is seen. Right ovary is not visualized. Left ovary measures 2.1 x 1.5 x 1.6 cm without abnormality. US/US pelvis transvaginal Impression: Fibroid uterus. Unremarkable endometrium and left ovary. Right ovary not visualized. Impression dictated by: Kurtis Clarke Jr., D.O. 01/08/2025 2:31 PM Dictation Location: [place] [address] Electronically authenticated by: [id number] Y Date: 01/08/2025 14:31
[2025-01-08 12:40] VITALS: BP 137/90
== END 2025-01-08 14:53 | disposition home or self-care (01) ==
PROVIDERS: Emergency Provider Emergency Medicine
DX: N93.8 Other specified abnormal uterine and vaginal bleeding (principal); D25.9 Leiomyoma of uterus, unspecified
CPT/HCPCS: 36415; 76830; 80048; 81001; 84703; 85025; 85610; 85730; 87086; 99285

== ENCOUNTER 2025-02-16 14:27 | Outpatient (REF) | payer MEDICAID, SELFPAY | END 2025-02-16 14:28 | disposition home or self-care (01) | LOC: LAB 14:27 | PROVIDERS: Visit Provider Obstetrics & Gynecology | DX: N92.0 Excessive and frequent menstruation with regular cycle (principal); N85.01 Benign endometrial hyperplasia ==

== ENCOUNTER 2025-03-02 08:58 | Outpatient (OUT) | payer MEDICAID, SELFPAY ==
--- NOTE | 2025-03-02 08:59 | ECG_ITS ---
[facility] Test Date: 2025-03-02 Pat Name: ANN MARIE RODRIGUEZ Department: Room: - Gender: Female [employer]: : 1980 Requested By: HIMA HENLEY Order Number: [id number] Reading MD: ASHLEY CORREA Measurements Intervals [place] Rate: 91 P: 42 MA: 149 QRS: 47 QRSD: 81 T: 25 QT: 355 QTc: 437 Interpretive Statements SINUS RHYTHM No previous ECG available for comparison Electronically Signed On 03-02-2025 11:18:57 EDT by ASHLEY CORREA
--- OUTSIDE RECORDS SUMMARY | 2025-03-02 09:00 | XMS_ITS | Continuity of Care Document ---
Author Organization [facility] Address [address] [place] [address] Phone Care Team Providers Care Delivery Coordinator Name Role Phone Isaias Shen QUACH Primary Care Provider [phone] Lucio Goldstein DO Attending Provider Shen Esparza DO Attending Provider Beni Carvalho DO Attending Provider Care Teams Visit Care Team Team Status: Inactive Member Role Status Dates Shen Esparza DO Primary Care Provider Active Sta rt: January 08, 2025 End: January 08, 2025 Lucio Goldstein DO Attending Provider Active S tart: January 08, 2025 End: January 08, 2025 Visit Care Team Team Status: Inactive Member Role Status Dates Shen Esparza DO Primary Care Provider Active Sta rt: January 25, 2025 End: January 25, 2025 Shen Esparza DO Attending Provider Active Start: January 25, 2025 End: January 25, 2025 Visit Care Team Team Status: Inactive Member Role Status Dates Shen Esparza DO Primary Care Provider Active Sta rt: January 27, 2025 End: January 27, 2025 Shen Esparza DO Attending Provider Active Start: January 27, 2025 End: January 27, 2025 Patient Care Team Team Status: Inactive Member Role Status Dates Beni Carvalho DO Attending Provider Active Start : February 16, 2025 End: February 16, 2025 Chief Complaint and Reason for Visit Chief Complaint Admit Date Unknown January 08, 2025 10 :27am E55.9 F41.9 F32.A I10 E78.5 January 6:37am 6 month f/u January 27, 2025 12:47pm Reason for Visit Admit Date Anxiety and depression January 27 12:47pm Hyperlipidemia January 27, 2025 12:47pm Hypertension January 27, 2025 12:47pm Allergies, Adverse Reactions, Alerts Allergen Type Severity Reaction Last Updated Verified Status No Known Allergies Allergy Unknown 2024 12:57pm Yes Active Social History Smoking Status Status Start Date End Date Date of Observa tion Smokes tobacco daily (finding) January 15, 2024 1:27pm Observation Status Observation Response Date of Response Legal Sex Female (finding) Sex Assigned At Female 1980 Family History Relationship Condition Age at Onset Recorded Date/T mirella father Alcoholism Unknown Family history of mental disorder Unknown Malignant neoplasm Unknown Family history of ma lignant neoplasm of prostate Unknown grandparent Unknown mother Hypertension Unknown sister Hypertension Unknown Problems Active Problems Medical Problem Onset Date Status Nicotine dependence Unknown Active Lymphadenopathy of right cervical region Unknown Active Hyperlipidemia Unknown Active Anxiety and depression Unknown Active Hypertension Unknown Active Vitamin D deficiency Unknown Active Asthma Unknown Active Medications Medication Status Dose Units Route Directions Qty Days St art Date Stop Date End Date Instructions Adherence Amlodipine 10 mg tablet Active 10 MG PO Daily 90 Novemb er 2023 3:50pm FreeTextSi tablet Orally Once a day; Note: Source Status: Taking; Provider: Isaias Romeo Unknown Citalopram 20 mg tablet Discont inued 20 MG PO Daily 90 Novemb er 2023 3:50pm Septe mber 2024 1:22p m FreeTextSi tablet Orally Once a day; Note: Source Status: Taking; Refills: 1; Qty: 90 Tablet; Provider: Isaias Romeo Hydrochloro thiazide 12.5 mg tablet Discont inued 12.5 MG PO Every 48 hours 90 Novemb er 2023 3:50pm Febru jeremy 2024 1:53p m FreeTextSi tablet Orally every other day; Note: Source Status: Not-Takingund efinedPRN; Provider: Isaias Romeo Irbesartan 150 mg tablet Active 150 MG PO Daily 90 Novemb er 2023 3:51pm FreeTextSi tablet Orally Once a day; Note: Source Status: Taking; Provider: Isaias Romeo Unknown Acyclovir 800 mg tablet Discont inued 800 MG PO Twice daily as needed for cold sores 2024 1:33pm 2024 10:05 am FreeTextSi tablet Orally prn Twice a day; Note: Source Status: Not-Takingund efinedPRNprn; Refills: 5; Provider: Isaias Romeo Acyclovir 800 mg tablet Active 800 MG PO .COMPLEX as needed for cold sores 60 2024 10:04a m 800 mg orally 2 tabs twice a day PRN; Unknown Acyclovir 800 mg tablet Discont inued MG PO 2023 1:00am 2023 2:46p m FreeTextSi tablet Orally prn Twice a day; Note: Source Status: Not-Takingund efinedPRNprn; Refills: 5; Provider: Isaias Romeo Irbesartan 150 mg tablet Discont inued 1 TAB PO Daily 2023 1:00am 2023 2:46p m FreeTextSi tablet Orally Once a day; Note: Source Status: Taking; Provider: Isaias Romeo Hydrochloro thiazide 12.5 mg tablet Discont inued 1 TAB PO Every 48 hours 2023 1:00am 2023 2:46p m FreeTextSi tablet Orally every other day; Note: Source Status: Not-Takingund efinedPRN; Provider: Isaias Romeo Albuterol Sulfate (Proair Hfa) 90 mcg/actuati on HFA aerosol inhaler Discont inued 2 PUFF INHALA TION Every 6 hours 2023 1:00am 2023 3:18p m FreeTextSi puffs as needed Inhalation every 6 hrs; Note: Source Status: Not-Takingund efinedPRN; Provider: Isaias Romeo Amlodipine 10 mg tablet Discont inued 1 TAB PO Daily 2023 1:00am 2023 2:46p m FreeTextSi tablet Orally Once a day; Note: Source Status: Taking; Provider: Isaias Romeo Citalopram 20 mg tablet Discont inued 1 TAB PO Daily 2023 1:00am 2023 2:46p m FreeTextSi tablet Orally Once a day; Note: Source Status: Taking; Refills: 1; Qty: 90 Tablet; Provider: Isaias Romeo Acyclovir 800 mg tablet Discont inued 800 MG PO 2023 2:45pm 2024 1:33p m FreeTextSi tablet Orally prn Twice a day; Note: Source Status: Not-Takingund efinedPRNprn; Refills: 5; Provider: Isaias Romeo Amlodipine 10 mg tablet Discont inued 10 MG PO Daily 2023 2:46pm 2023 3:18p m FreeTextSi tablet Orally Once a day; Note: Source Status: Taking; Provider: Isaias Romeo Citalopram 20 mg tablet Discont inued 20 MG PO Daily 2023 2:46pm 2023 3:18p m FreeTextSi tablet Orally Once a day; Note: Source Status: Taking; Refills: 1; Qty: 90 Tablet; Provider: Isaias Romeo Hydrochloro thiazide 12.5 mg tablet Discont inued 12.5 MG PO Every 48 hours 2023 2:46pm Augus t 2023 1:33p m FreeTextSi tablet Orally every other day; Note: Source Status: Not-Takingund efinedPRN; Provider: Isaias Romeo Irbesartan 150 mg tablet Discont inued 150 MG PO Daily 2023 2:46pm 2023 3:18p m FreeTextSi tablet Orally Once a day; Note: Source Status: Taking; Provider: Isaias Romeo Lorazepam (Ativan) 0.5 mg tablet Discont inued 0.5 MG PO Daily as needed for anxiety/ panic attacks 15 30 2023 1:00am Febru jeremy 2023 3:24p m Cephalexin 500 mg capsule Discont inued 500 MG PO Three times daily 30 2023 1:00am Augus t 2023 1:04p m Amlodipine 10 mg tablet Discont inued 10 MG PO Daily 2023 3:14pm 2023 3:51p m FreeTextSi tablet Orally Once a day; Note: Source Status: Taking; Provider: Isaias Romeo Irbesartan 150 mg tablet Discont inued 150 MG PO Daily 2023 3:15pm 2023 3:51p m FreeTextSi tablet Orally Once a day; Note: Source Status: Taking; Provider: Isaias Romeo Citalopram 20 mg tablet Discont inued 20 MG PO Daily 2023 3:15pm 2023 3:51p m FreeTextSi tablet Orally Once a day; Note: Source Status: Taking; Refills: 1; Qty: 90 Tablet; Provider: Isaias Romeo Albuterol Sulfate (Proair Hfa) 90 mcg/actuati on HFA aerosol inhaler Active 2 PUFF INHALA TION Every 6 hours 6.7 2023 3:16pm FreeTextSi puffs as needed Inhalation every 6 hrs; Note: Source Status: Not-Takingund efinedPRN; Provider: Isaias Romeo Unknown Lorazepam (Ativan) 0.5 mg tablet Active 0.5 MG PO Daily as needed for anxiety/ panic attacks 15 30 2023 3:24pm Unknown Hydrochloro thiazide 12.5 mg tablet Discont inued 12.5 MG PO Every 48 hours January 15, 2024 1:33pm 2023 3:51p m FreeTextSi tablet Orally every other day; Note: Source Status: Not-Takingund efinedPRN; Provider: Isaias Romeo Hydrochloro thiazide 12.5 mg tablet Active 12.5 MG PO daily as needed Februa 2024 1:53pm Unknown Citalopram 20 mg tablet Active 20 MG PO Daily 90 Septem 2024 1:06pm Unknown Immunizations Immunization Event Date Not Given Reason Dose Number Tube Buffer Lot Number Vaccine Information Statement (VIS) Detail Administration Location Trivalent Influenza Vaccine September 18, 2018 Patient Refused Procedures Procedure Date Performed Status Urine Culture January 08, 2025 completed Relevant Diagnostic Tests and/or Laboratory Data Laboratory Results Test Collection Date/Time Result Date/Time Result Interpretation Reference Range Result Comment Performing Site Corrected White Blood Count January 25, 2025 6:38am January 25, 2025 1:55pm 6.4 10*3/uL 3.8-11.6 [facility] [id number] [address] [facility] [address] Uncorrect ed WBC Count January 25, 2025 6:38am January 25, 2025 1:55pm 6.4 10*3/uL 3.8-11.6 [facility] [id number] [address] [place] [address] Red Blood Count January 25, 2025 6:38am January 25, 2025 1:55pm 3.86 10*6/uL 3.60-5.00 [facility] [id number] [address] [place] [address] Hemoglobi n January 25, 2025 6:38am January 25, 2025 1:55pm 12.0 g/dL 11.8-15.4 [facility] [id number] [address] [place] [address] Hematocri t January 25, 2025 6:38am January 25, 2025 1:55pm 34.9 % 34.0-46.4 [facility] [id number] [address] [facility] [address] Mean Corpuscul ar Volume January 25, 2025 6:38am January 25, 2025 1:55pm 90.4 fL 80-100 [facility] [id number] [address] [place] [address] Mean Corpuscul ar Hemoglobi n January 25, 2025 6:38am January 25, 2025 1:55pm 31.0 pg 24.7-34.3 [facility] [id number] [address] [place] [address] [place] [address] Mean Corpuscul ar Hemoglobi n Concent January 25, 2025 6:38am January 25, 2025 1:55pm 34.3 g/dL 32.0-35.0 [facility] [id number] [address] [facility] [address] Red Cell Distribut ion Width January 25, 2025 6:38am January 25, 2025 1:55pm 12.0 % 11.9-15.3 [facility] [id number] [address] [facility] [address] Platelet Count January 25, 2025 6:38am January 25, 2025 1:55pm 270 10*3/uL 150-450 [facility] [id number] [address] [place] [address] Mean Platelet Volume January 25, 2025 6:38am January 25, 2025 1:55pm 7.5 fL 6.3-10.7 [facility] [id number] [address] [facility] [address] Neutrophi ls (%) (Auto) January 25, 2025 6:38am January 25, 2025 1:55pm 55.3 % . [facility] [id number] [address] [facility] [address] Lymphocyt es (%) (Auto) January 25, 2025 6:38am January 25, 2025 1:55pm 35.1 % . [facility] [id number] [address] [facility] [address] Monocytes (%) (Auto) January 25, 2025 6:38am January 25, 2025 1:55pm 6.1 % . [facility] [id number] [address] [facility] [address] Eosinophi ls (%) (Auto) January 25, 2025 6:38am January 25, 2025 1:55pm 2.6 % . [facility] [id number] [address] [facility] [address] Basophils (%) (Auto) January 25, 2025 6:38am January 25, 2025 1:55pm 0.9 % . [facility] [id number] [address] [facility] [address] Nucleated RBC Relative Count (auto) January 25, 2025 6:38am January 25, 2025 1:55pm 0.2 /100{WB C} 0-0.5 [facility] [id number] [address] [facility] [address] Neutrophi ls # (Auto) January 25, 2025 6:38am January 25, 2025 1:55pm 3.6 10*3/uL 1.8-7.7 [facility] [id number] [address] [place] [address] Lymphocyt es # (Auto) January 25, 2025 6:38am January 25, 2025 1:55pm 2.3 10*3/uL 1.00-4.8 [facility] [id number] [address] [facility] [address] Monocytes # (Auto) January 25, 2025 6:38am January 25, 2025 1:55pm 0.4 10*3/uL 0.0-0.8 [facility] [id number] [address] [place], [place] [address] Eosinophi ls # (Auto) January 25, 2025 6:38am January 25, 2025 1:55pm 0.2 10*3/uL 0.0-0.45 [facility] [id number] [address] [facility] [address] Basophils # (Auto) January 25, 2025 6:38am January 25, 2025 1:55pm 0.1 10*3/uL 0.0-0.2 [facility] [id number] [address] [facility] [address] Glucose Level January 25, 2025 6:38am January 25, 2025 2:25pm 89 mg/dL 70-100 ADA recommended reference rangeRandom Glucose Reference Range is dependent on time and content of last meal. Glucose of more than 200 mg/dL in a nonstressed, ambulatory subject supports the diagnosis of Diabetes Mellitus. [facility] [id number] [address] [place] [address] Blood Urea Nitrogen January 25, 2025 6:38am January 25, 2025 2:25pm 8 mg/dL 7-25 [facility] [id number] [address] [place] [address] Creatinin e January 25, 2025 6:38am January 25, 2025 2:25pm 0.49 mg/dL Below low normal 0.60-1.20 [facility] [id number] [address] [facility] [address] Estimated GFR (CKD-EPI) January 25, 2025 6:38am January 25, 2025 2:25pm > 60.0 mL/Min [facility] [id number] [address] [facility] [address] Sodium Level January 25, 2025 6:38am January 25, 2025 2:25pm 139 mmol/L 136-145 [facility] [id number] [address] [place] [address] Potassium Level January 25, 2025 6:38am January 25, 2025 2:25pm 3.9 mmol/L 3.5-5.1 [facility] [id number] [address] [place] [address] Chloride Level January 25, 2025 6:38am January 25, 2025 2:25pm 104 mmol/L 98-107 [facility] [id number] [address] [place] [address] Carbon Dioxide Level January 25, 2025 6:38am January 25, 2025 2:25pm 26.8 mmol/L 21.0-31.0 [facility] [id number] [address] [place] [address] Anion Gap January 25, 2025 6:38am January 25, 2025 2:25pm 12.1 mEq/L 6.0-15.0 [facility] [id number] [address] [place] [address] Calcium Level January 25, 2025 6:38am January 25, 2025 2:25pm 8.8 mg/dL 8.6-10.3 [facility] [id number] [address] [facility] [address] Total Protein January 25, 2025 6:38am January 25, 2025 2:25pm 6.8 g/dL 6.4-8.9 [facility] [id number] [address] [facility] [address] Albumin January 25, 2025 6:38am January 25, 2025 2:25pm 4.1 g/dL 3.5-5.7 [facility] [id number] [address] [facility] [address] Globulin January 25, 2025 6:38am January 25, 2025 2:25pm 2.7 g/dL [facility] [id number] [address] [facility] [address] Albumin/G lobulin Ratio January 25, 2025 6:38am January 25, 2025 2:25pm 1.5 [facility] [id number] [address] [place] [address] Total Bilirubin January 25, 2025 6:38am January 25, 2025 2:25pm 0.4 mg/dL 0.3-1.0 [facility] [id number] [address] [place] [address] Aspartate Amino Transf (AST/SGOT ) January 25, 2025 6:38am January 25, 2025 2:25pm 23 U/L 13-39 [facility] [id number] [address] [place], [place] [address] Alanine Aminotran sferase (ALT/SGPT ) January 25, 2025 6:38am January 25, 2025 2:25pm 13 U/L 7-52 [facility] [id number] [address] [place], [place] [address] Alkaline Phosphata se January 25, 2025 6:38am January 25, 2025 2:25pm 101 U/L 34-104 [facility] [id number] [address] [place], [place] [address] Cholester ol Level January 25, 2025 6:38am January 25, 2025 2:25pm 165 mg/dL 140-200 Chol less than 200 mg/dl low riskChol 201-239 mg/dl borderline riskChol 240 mg/dl and greater high risk [facility] [id number] [address] [place] [address] HDL Cholester ol January 25, 2025 6:38am January 25, 2025 2:25pm 52 mg/dL 23-92 HDL CHOL ATP-III CLASSIFICATI ON Cardiovascul ar RiskHDL > or equal to 60 mg/dL LOWHDL < 40 mg/dL HIGH [facility] [id number] [address] [place] [address] Triglycer ides Level January 25, 2025 6:38am January 25, 2025 2:25pm 263 mg/dL Above high normal 0-149 TRIG ATP III CLASSIFICATI ONTRIG less than 150 mg/dL NormalTRIG 150-199 mg/dL Borderline highTRIG 200-500 mg/dL High TRIG greater than 500 mg/dL Very highStandard traceable to the Center for Disease Conrtrol and Prevention (CDC) test method. [facility] [id number] [address] [facility] [address] LDL Cholester ol, Calculate d January 25, 2025 6:38am January 25, 2025 2:25pm 60 mg/dL 0-100 LDL ATP III CLASSIFICATI ONLDL less than 100 mg/dL OptimalLDL 100-129 mg/dL Near or above optimalLDL 130-159 mg/dL Borderline highLDL 160-189 mg/dL HighLDL greater than 189 mg/dL Very high [facility] [id number] [address] [facility] [address] VLDL Cholester ol January 25, 2025 6:38am January 25, 2025 2:25pm 52 mg/dL [facility] [id number] [address] [facility] [address] Cholester ol/HDL Ratio January 25, 2025 6:38am January 25, 2025 2:25pm 3.2 <5.0 [facility] [id number] [address] [facility] [address] Thyroid Stimulati ng Hormone 3rd Gen January 25, 2025 6:38am January 25, 2025 2:42pm 2.46 u[iU]/m L 0.45-5.33 [facility] [id number] [address] [place] [address] 25-Hydrox y Vitamin D Total January 25, 2025 6:38am January 25, 2025 2:52pm 15.1 ng/mL Below low normal 30-100 VITAMIN D STATUS 25(OH)VITAMI N D RANGE (ng/mL) Deficient <20 Insufficient 20 to <30Sufficien t 30 to 100Reference : Ela MF,Margarita RAMOS, Oskar marshall ACUÑA, et al. Evaluation,t reatment, and prevention of vitamin D deficiency; an Endocrine Society clinical practice guideline. JCEM. 2010; 96(7):1911-3 0. [facility] [id number] [address] [facility] [address] Pharmacy Creatinin e Clearance (Chem January 25, 2025 6:38am January 25, 2025 2:25pm N/A [facility] [id number] [address] [facility] [address] Hemoglobi n A1c January 25, 2025 6:38am January 25, 2025 2:50pm 4.7 % 4.3-5.6 Increased risk for diabetes: 5.7 - 6.4diabetes: >6.4glycemic control for adults with diabetes: <7.0 [facility] [id number] [address] [place] [address] Estimated Average Glucose January 25, 2025 6:38am January 25, 2025 2:50pm 88 mg/dL [facility] [id number] [address] [place] [address] Microbiology Results Procedure Source Result Collection Date/Time Result Date/Time Result Comment Performing Site Urine Culture Urine, Not Otherwise Specified 2 Days January 08, 2025 10:27am January 11, 2025 8:48am [facility] [id number] [address] [place] [address] Vital Signs Vital Reading Result Reference Range Collection Date/Time Height 64 [in_i] January 27, 2025 1:05pm Weight 85.72 kg January 27, 2025 1:05pm Heart Rate 89 /min 60-100 January 27, 2025 1:05pm Respiratory rate 18 /min 12-24 January 272024 1:05pm Oxygen saturation by Pulse oximetry 99 % 95-100 January 27, 2025 1:05pm BP Systolic 126 mm[Hg] 100-140 January 27, 2025 1:05pm BP Diastolic 84 mm[Hg] 60-100 January 27, 2025 1:05pm BMI (Body Mass Index) 32.4 kg/m2 2024 1:05pm Advance Directives Advance Directive Response Recorded Date/ Time Advance Directives No June 11:59am Insurance Providers Guarantor Rosalba Posadas Address [address] [facility] [id number] [place] [phone] Contact Info. Home Phone: Payer Policy Id Subscriber's Name Subscriber Id Effective Date Expiration Date Vijay BURTON/JERROD [id number] Wilfredo Posadas [id number] Anthem [place] Medicaid [id number] Rosalba Posadas [id number] [place] [employer] [id number] Rosalba Posadas [id number] Encounters Encounter Location(s) Arrival/Admit Date Discharge/Depart Date Provider(s) Departed Referred -LAB Joon Zelaya [facility] January 08, 2025 10:27am January 08, 2025 10:28am Jin Wilkerson DO Departed Clinical -[facility] [place] January 25, 2025 6:37am January 25, 2025 6:38am Ousmane Kern DO Departed Physician/Prov ider Office Visit -[facility] [place] January 27, 2025 12:47pm January 27, 2025 1:32pm Ousmane Kern DO Departed Referred -Lab [facility] February 16, 2025 3:33pm February 16, 2025 3:34pm Beni Deven Recent Diagnosis Onset Date Admit Date Anxiety and depression Unknown January 27, 2025 12:47pm Hyperlipidemia Unknown January 27, 025 12:47pm Hypertension Unknown January 27 025 12:47pm Assessments Author Jaki Calles [facility] Authored January 27, 2025 1:11pm Sooner if needed, the ER if concerns,The above note written by Jaki Calles LPN acting as human recorder, note dictated by Dr. Shen Esparza Plan of Treatment Author Shen Esparza [facility] Authored January 27, 2025 3:28pm Blood pressure appears to be well controlled with her current regimen. She is to continue as directed. Blood work reviewed with the patient. No signs of anemia or leukemia noted. Renal function, liver enzymes, glucose, and electrolytes are stable. Cholesterol overall is satisfactory. Encouraged patient monitor diet, increase water intake, and stay active. Celexa continues to work well for her and she does have the Ativan at home but does not use it very often at all which she was encouraged to continue. Refill escribed for the Celexa. We reviewed her blood work with her as well as refill current medications as needed. She has been seen twice a year for both her blood pressure and the current medications for anxiety. We did again spend the approximately 36 minutes with her during this office visit. Future Tests Future scheduled test information is unavailable Pending Tests Test Name Ordered Date Scheduled Date Miscellaneous Pathology Test February 16 12:00am Future Visits Future appointment information is unavailable Referrals to Other Providers Referral information is unavailable Future Procedures Procedure Name Ordered Date Scheduled Date Pathology Request for Lab [facility] February 17, 2025 1:31pm February 16, 2025 12:00 am Future Medications Future medication information is unavailable Patient Instructions Patient instructions are unavailable
--- OUTSIDE RECORDS SUMMARY | 2025-03-02 09:05 | XMS_ITS | CCD ---
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 Name Role Phone DR JASON PADILLA Attending Unavailable BRETT, DR GOMEZ Consulting Unavailable BRETT, DR GOMEZ Admitting Unavailable [facility], DR SHANKS Primary Care Unavailable Shen Esparza Unavailable Bonita Parra Unavailable DO Shen Esparza Primary Care Provider DO Shen Esparza Attending Provider Shen Esparza MD Primary Care Provider Shen Esparza DO Primary Care Provider [phone] Lucio Goldstein DO Attending Provider Shen Esparza DO Primary Care Provider Shen Esparza DO Attending Provider VERA FATIMA Attending Unavailable HIMA CARVALHO Attending Unavailable HIMA CARVALHO Attending Unavailable Hima Carvalho DO Attending Provider Lucio Goldstein Admitting Unavailable Lucio Goldstein Attending Unavailable Shen Esparza Primary Care Unavailable Shen Esparza Admkp Unavailable Shen Esparza Primary Care Unavailable Shen Esparza Attending Unavailable Hima Carvalho Admitting Unavailable Hiam Carvalho Attending Unavailable Shen Esparza Primary Care Unavailable Medications Current Medications Medication Drug Class(es) Dates Sig (Normalized) Sig (Original) [id number] 200 actuat albuterol 0.09 mg/actuat metered dose inhaler (16 sources) beta2-Adrenergic Agonist Start: 07-16-2023 End: 07-17-2023 take 2 puff(s) by inhalation every six hours as needed Start: 12-29-2017 take 2 puff(s) by in halation every six hours as needed ProAir HFA 108 (90 Base) MCG/ACT 2 puffs as needed Inhalation every 6 hrs Dec, Active Albuterol Sulfate (Proair Hfa) 90 mcg/actuation HFA [...] tablet 07/06/2024 Active Start: 07-16-2023 End: 04-05-2024 take 1 tablet by mouth once daily Amlodipine 10 mg tablet Discontinued 10 MG PO Daily July 17, 2023 3:14pm April 05, 2024 3:51pm FreeTextSi tablet Orally Once a day; Note: Source Status: Taking; Provider: Isaias Romeo Start: 12-01-2017 take 1 tablet by thierry [...] tablet (20 sources) Serotonin Reuptake Inhibitor Start: 07-16-2023 End: 01-27-2025 citalopram (CeleXA) 20 MG tablet 07/06/2024 Active Start: 11-27-2017 take 1 tablet by thierry th every twenty-four hours CeleXA 20 MG 1 tablet Orally Once a day for 90 days Nov, Active hydroCHLOROthiazide 12.5 mg oral tablet (20 sources) Thiazide Diuretic Start: 07-06-2024 hydroCHLOROthiazide (HYDRODiuril) 12.5 MG tablet 07/06/2024 Active Start: 07-16-2023 End: 07-19-2024 Hydrochlorothiazide 12.5 mg tablet Discontinued 12.5 MG PO Every 48 hours 90 January 15, 2024 1:33pm April 05, 2024 3:51pm FreeTextSi tablet Orally every other day; Note: Source Status: Not-TakingundefinedPRN; Provider: Isaias Romeo LORazepam 0.5 mg oral tablet (20 sources) Benzodiazepine Start: 07-17-2023 End: 07-17-2023 take 1 tablet by mouth once daily as needed for anxiety Start: 11-19-2021 take 1 tablet by thierry every six hours Ativan 0.5 MG 1 tablet as needed Orally every 6 hrs PRN Oct, Active Start: 10-27-2017 take 1 tablet by thierry every six hours Ativan 0.5 MG 1 [...] daily as needed Acyclovir 800 mg tablet Discontinued 800 MG PO July 17, 2023 2:45pm June 23, 2024 1:33pm FreeTextSi tablet Orally prn Twice a day; Note: Source Status: Not-Takingundefined PRNprn; Refills: 5; Provider: Isaias Romeo Start: 01-26-2019 take 2 tablets by mo uth twice daily as needed Acyclovir 800 MG 2 tablet Orally prn Twice a day for 2 days prn Jan, Not-Taking/PRN cephalexin 500 mg oral capsule (8 sources) Cephalosporin Antibacterial Start: 07-17-2023 End: 01-15-2024 take 1 capsule by mouth three times daily Cephalexin 500 mg capsule Discontinued 500 MG PO Three times daily 30 July 17, 2023 1:00am January 15, 2024 1:04pm diclofenac sodium 20 mg/ml topical solution (10 [...] tablet Orally every other day Feb, Active irbesartan 150 mg oral tablet (20 sources) Angiotensin 2 Receptor Nabor Start: 07-16-2023 End: 04-05-2024 take 1 tablet by mouth once daily Irbesartan 150 mg tablet Discontinued 150 MG PO Daily July 17, 2023 3:15pm April 05, 2024 3:51pm FreeTextSi tablet Orally Once a day; Note: Source Status: Taking; Provider: Isaias Romeo Start: 06-02-2018 take 1 tablet by thierry th every twenty-four hours Irbesartan 150 MG 1 tablet Orally Once a day May, Active potassium bicarbonate 25 meq effervescent oral [...] Problem Classification Problem Date Documented Date Episodic/Chronic Abdominal pain (1 source) Pain in pelvis; Translations: [Pelvic and perineal pain] 02-16-2025 Episodic Anxiety disorders (20 sources) Anxiety; Translations: [Anxiety disorder, unspecified] Onset: 10-09-2021 Resolved: 11-19-2021 Chronic Asthma (7 sources) Asthma; Translations: [Unspecified asthma, uncomplicated] 07-17-2023 [...] Translations: [Unspecified acute conjunctivitis, bilateral] Episodic Lymphadenitis (9 sources) Cervical lymphadenopathy; Translations: [Localized enlarged lymph nodes] 07-17-2023 Episodic Menstrual disorders (3 sources) Menometrorrhagia; Translations: [Excessive and frequent menstruation with irregular cycle] 01-17-2025 Chronic Mood disorders (1 source) Mood disorders; Translations: [Depression, unspecified] Onset: 01-25-2025 Nutritional deficiencies (8 sources) Vitamin D deficiency; Translations: [Vitamin D deficiency, unspecified] Onset: 01-25-2025 01-15-2024 Chronic Other aftercare (2 sources) Patient encounter status; Translations: [Encounter for follow-up examination after completed treatment for conditions other than malignant neoplasm] 01-17-2025 Episodic Other connective tissue disease (11 sources) Pain in right heel; Translations: [Pain in right foot] Episodic Other female genital disorders (1 source) Abnormal uterine bleeding; Translations: [Abnormal uterine and vaginal bleeding, unspecified] 02-16-2025 Chronic Other lower respiratory disease (2 sources) Wheezing Episodic Other screening for suspected conditions (not mental disorders or infectious disease) (18 sources) Encounter for screening for malignant neoplasm of cervix; Translations: [Patient encounter status] Onset: 08-21-2021 Episodic Substance-related disorders (19 sources) Nicotine dependence; Translations: [Nicotine dependence, unspecified, uncomplicated] Chronic Past or Other Problems Problem Classification Problem Date Documented Da te Episodic/Chronic Residual codes; unclassified (1 source) Edema, unspecified Onset: 11-19-2021 Resolved: 11-19-2021 Episodic Results Test Name Value Interpretation Reference Range Facility PATHOLOGY REQUEST FOR LAB CO RPon 02-23-2025 PATHOLOGY REQUEST FOR LAB LIU [facility] Comment on above: See report. Scanned copy available in EMR. [facility] Endometrial biopsyon 025 Mela Mcneil LPN 02/16/2025 4:18 PM Endometrial biopsy Date/Time: 02/16/2025 4:07 PM Performed by: Hima Carvalho DO Authorized by: Hima Carvalho DO Consent: Consent obtained: verbal Consent given by: patient Risks discussed: bleeding Alternatives discussed: alternative treatment Patient agrees, verbalizes understanding, and wants to proceed: yes Indications: Indications: abnormal uterine bleeding and other menstrual disorder Chronicity of post-menopausal bleeding: recurrent Pre-procedure: Urine test: negative Procedure: Tenaculum used: yes Findings: Cervix: normal Specimen collected: specimen collected and sent to pathology Patient tolerance: tolerated well, no immediate complications [facility] Endometrial biopsyOrdered By : Mela Mcneil on 02-16-2025 [facility] HCG ( test) Ql (U)O rdered By: Tsering Tabor on 02-16-2025 Interpretation and review of laboratory results Normal [facility] Work Phone: Preg Test, Ur Negative Negative [facility] Work Phone: [facility] Work Phone: Pathology Request for Lab Co rpon 02-16-2025 Pathology Request for Lab Liu Normal [facility] Comment on above: Order Comment: EMBX Result Comment: See report. Scanned copy available in EMR. PERFORMED BY: [place] [address] PATHOLOGIST MATTRESS MAKER TIEN SINGH M.D. Performed By: #### P ATH TO [facility] #### [facility] [address] [place] [id number] [place] A1C with Estimated Average G luon 01-25-2025 Glucose [Mass/Vol] 88 mg/dL Normal [facility] Comment on above: Result Comment: PERF ORMED BY: [place] [address] PATHOLOGIST MATTRESS MAKER TIEN SINGH M.D. Performed By: #### T SH3, A1C WTH eA, CMP, LIPID, [id number], CBC #### [facility] [address] [id number] [place] Alanine aminotransferase [En zymatic activity/volume] in Serum or PlasmaOrdered By: Shne Esparza on 01-25-2025 ALT [Catalytic activity/Vol] 13 U/L Normal 7-52 [facility] Comment on above: Performed By: #### T SH3, A1C WTH eA, CMP, LIPID, [id number], CBC #### [facility] [address] [id number] [place] Albumin [Mass/volume] in Ser um or Plasma by Bromocresol green (BCG) dye binding methoOrdered By: Shen Esparza on 01-25-2025 Albumin BCG dye [Mass/Vol] 4.1 g/dL 3.5-5.7 [facility] Alkaline phosphatase [Enzyma tic activity/volume] in Serum or PlasmaOrdered By: Shen Esparza on 01-25-2025 ALP [Catalytic activity/Vol] 101 U/L Normal 34-104 [facility] Comment on above: Performed By: #### T SH3, A1C WTH eA, CMP, LIPID, [id number], CBC #### [address] Aspartate aminotransferase [ Enzymatic activity/volume] in Serum or PlasmaOrdered By: Shen Esparza on 01-25-2025 AST [Catalytic activity/Vol] 23 U/L Normal 13-39 [facility] Comment on above: Performed By: #### T SH3, A1C WTH eA, CMP, LIPID, [id number], CBC #### [facility] [address] Basophils [#/volume] in Bloo d by Automated countOrdered By: Shen Esparza on 01-25-2025 Basophils (Bld) [#/Vol] 0.1 10*3/uL Normal 0.0-0.2 [facility] Comment on above: Result Comment: PERF ORMED BY: [place] [address] PATHOLOGIST MATTRESS MAKER TIEN SINGH M.D. Performed By: #### T SH3, A1C WTH eA, CMP, LIPID, [id number], CBC #### [address] Basophils/100 leukocytes in Blood by Automated countOrdered By: Shen Esparza on 01-25-2025 Basophils/100 WBC (Bld) 0.9 % Normal . [facility] Comment on above: Performed By: #### T SH3, A1C WTH eA, CMP, LIPID, [id number], CBC #### [facility] [address] Bilirubin.total [Mass/volume ] in Serum or PlasmaOrdered By: Shen Esparza on 01-25-2025 Bilirubin [Mass/Vol] 0.4 mg/dL Normal 0.3-1.0 [facility] Comment on above: Performed By: #### T SH3, A1C WTH eA, CMP, LIPID, [id number], CBC #### [facility] [address] Blood estimated average gluc ose determination by estimation from glycated hemoglobinOrdered By: Shen Esparza on 01-25-2025 Average glucose Estimated from glycated hemoglobin (Bld) [Mass/Vol] 88 mg/dL [facility] Calcium [Mass/volume] in Ser um or PlasmaOrdered By: Shen Esparza on 01-25-2025 Calcium [Mass/Vol] 8.8 mg/dL Normal 8.6-10.3 [facility] Comment on above: Performed By: #### T SH3, A1C WTH eA, CMP, LIPID, [id number], CBC #### [facility] [address] [place] [address] [place] Carbon dioxide, total [Moles /volume] in Serum or PlasmaOrdered By: Shen Espraza on 01-25-2025 CO2 [Moles/Vol] 26.8 mmol/L Normal 21.0-31.[address] [facility] Comment on above: Performed By: #### T SH3, A1C WTH eA, CMP, LIPID, [id number], CBC #### [facility] [address] [place] [id number] [place] Chloride [Moles/volume] in S cody or PlasmaOrdered By: Shen Esparza on 01-25-2025 Chloride [Moles/Vol] 104 mmol/L Normal 98-107 [facility] Comment on above: Performed By: #### T SH3, A1C WTH eA, CMP, LIPID, [id number], CBC #### [facility] [address] [place] [id number] [place] Cholesterol [Mass/volume] in Serum or PlasmaOrdered By: Shen Esparza on 01-25-2025 Cholesterol [Mass/Vol] 165 mg/dL Normal 140-200 [facility] Comment on above: Chol less than 200 m g/dl low riskChol 201-239 mg/dl borderline riskChol 240 mg/dl and greater high risk Result Comment: Chol less than 200 mg/dl low risk Chol 201-239 mg/dl borderline risk Chol 240 mg/dl and greater high risk Performed By: #### T SH3, A1C WTH eA, CMP, LIPID, [id number], CBC #### [facility] [address] [place], [place] [address] Cholesterol in HDL [Mass/vol ume] in Serum or PlasmaOrdered By: Shen Esparza on 01-25-2025 Cholesterol in HDL [Mass/Vol] 52 mg/dL Normal 23-92 [facility] Comment on above: HDL CHOL ATP-III CLA SSIFICATION Cardiovascular RiskHDL > or equal to 60 mg/dL LOWHDL < 40 mg/dL HIGH Result Comment: HDL CHOL ATP-III CLASSIFICATION Cardiovascular Risk HDL > or equal to 60 mg/dL LOW HDL < 40 mg/dL HIGH Performed By: #### T SH3, A1C WTH eA, CMP, LIPID, [id number], CBC #### [facility] [address] [place] [address] [place] Cholesterol in LDL Calc [Mas s/Vol]Ordered By: Shen Esparza on 01-25-2025 Cholesterol in LDL [Mass/Vol] 60 mg/dL 0-100 [facility] Comment on above: LDL ATP III CLASSIFI CATIONLDL less than 100 mg/dL OptimalLDL 100-129 mg/dL Near or above optimalLDL 130-159 mg/dL Borderline highLDL 160-189 mg/dL HighLDL greater than 189 mg/dL Very high Cholesterol in VLDL Calc [Ma ss/Vol]Ordered By: Shen Esparza on 01-25-2025 Cholesterol in VLDL [Mass/Vol] 52 mg/dL [facility] Complete Blood Count Auto Di ffon 01-25-2025 Mean Corpuscular HGB Conc 34.3 g/dL Normal 32.0-35.0 [facility] Comment on above: Performed By: #### T SH3, A1C WTH eA, CMP, LIPID, [id number], CBC #### [facility] [address] [place] [address] [place] NRBC% 0.2 /100{WBC} Normal 0-0.5 [facility] Comment on above: Performed By: #### T SH3, A1C WTH eA, CMP, LIPID, [id number], CBC #### [facility] [address] [place] [address] [facility] White Blood Count 6.4 [CFU]/mL Normal 3.8-11.6 [facility] Comment on above: Performed By: #### T SH3, A1C WTH eA, CMP, LIPID, [id number], CBC #### [facility] [address] Comprehensive Metabolic Pane edith 01-25-2025 Albumin [Mass/Vol] 4.1 g/dL Normal 3.5-5.7 [facility] Comment on above: Performed By: #### T SH3, A1C WTH eA, CMP, LIPID, [id number], CBC #### [facility] [address] [place] [address] [place] GFR/1.73 sq M.predicted MDRD (S/P/Bld) [Vol rate/Area] mL/min/{1.73_m2} Normal [facility] Comment on above: Performed By: #### T SH3, A1C WTH eA, CMP, LIPID, [id number], CBC #### [place] [address] [place] Creatinine [Mass/volume] in Serum or PlasmaOrdered By: Shen Esparza on 01-25-2025 Creatinine [Mass/Vol] 0.49 mg/dL Low 0.60-1.20 [facility] Comment on above: Performed By: #### T SH3, A1C WTH eA, CMP, LIPID, [id number], CBC #### [place] [address] [place] Eosinophils [#/volume] in Bl ood by Automated countOrdered By: Shen Esparza on 01-25-2025 Eosinophils (Bld) [#/Vol] 0.2 10*3/uL Normal 0.0-0.45 [facility] Comment on above: Performed By: #### T SH3, A1C WTH eA, CMP, LIPID, [id number], CBC #### [facility] [address] [place] [address] [place] Eosinophils/100 leukocytes i n Blood by Automated countOrdered By: Shen Esparza on 01-25-2025 Eosinophils/100 WBC (Bld) 2.6 % Normal . [facility] Comment on above: Performed By: #### T SH3, A1C WTH eA, CMP, LIPID, [id number], CBC #### [facility] [address] Erythrocyte distribution wid th [Ratio] by Automated countOrdered By: Shen Esparza on 01-25-2025 Erythrocyte distribution width (RBC) [Ratio] 12.0 % Normal 11.9-15.3 [facility] Comment on above: Performed By: #### T SH3, A1C WTH eA, CMP, LIPID, [id number], CBC #### [facility] [address] Erythrocytes [#/volume] in B lood by Automated countOrdered By: Shen Esparza on 01-25-2025 RBC (Bld) [#/Vol] 3.86 10*6/uL Normal 3.60-5.00 [facility] Comment on above: Performed By: #### T SH3, A1C WTH eA, CMP, LIPID, [id number], CBC #### [facility] [address] Glomerular filtration rate [ Volume Rate/Area] in Serum, Plasma or Blood by CreatinineOrdered By: Shen Esparza on 01-25-2025 Glomerular filtration rate [Volume Rate/Area] in Serum, Plasma or Blood by Creatinine > 60.0 mL/Min [facility] Glucose [Mass/volume] in Ser um or PlasmaOrdered By: Shen Esparza on 01-25-2025 Glucose [Mass/Vol] 89 mg/dL Normal 70-100 [facility] Comment on above: ADA recommended refe rence rangeRandom Glucose Reference Range is dependent on time and content of last meal. Glucose of more than 200 mg/dL in a nonstressed, ambulatory subject supports the diagnosis of Diabetes Mellitus. Result Comment: Maxbass om Glucose Reference Range is dependent on time and content of last meal. Glucose of more than 200 mg/dL in a nonstressed, ambulatory subject supports the diagnosis of Diabetes Mellitus. ADA recommended reference range Performed By: #### T SH3, A1C WTH eA, CMP, LIPID, [id number], CBC #### [facility] [address] [place] [address] [place] Hematocrit [Volume Fraction] of Blood by Automated countOrdered By: Shen Esparza on 01-25-2025 Hematocrit (Bld) [Volume fraction] 34.9 % Normal 34.0-46.4 [facility] Comment on above: Performed By: #### T SH3, A1C WTH eA, CMP, LIPID, [id number], CBC #### [facility] [address] Hemoglobin A1c/Hemoglobin.to raman in BloodOrdered By: Shen Esparza on 01-25-2025 HbA1c (Bld) [Mass fraction] 4.7 % Normal 4.3-5.6 [facility] Comment on above: Increased risk for d iabetes: 5.7 - 6.4diabetes: >6.4glycemic control for adults with diabetes: <7.0 Result Comment: Incr eased risk for diabetes: 5.7 - 6.4 diabetes: >6.4 glycemic control for adults with diabetes: <7.0 Performed By: #### T SH3, A1C WTH eA, CMP, LIPID, [id number], CBC #### [facility] [address] [place] [address] [place] Hemoglobin [Mass/volume] in BloodOrdered By: Shen Esparza on 01-25-2025 Hemoglobin (Bld) [Mass/Vol] 12.0 g/dL Normal 11.8-15.4 [facility] Comment on above: Performed By: #### T SH3, A1C WTH eA, CMP, LIPID, [id number], CBC #### [address] Leukocytes [#/volume] correc celso for nucleated erythrocytes in Blood by Automated counOrdered By: Shen Esparza on 01-25-2025 WBC corrected for nucl RBC Auto (Bld) [#/Vol] 6.4 10*3/uL 3.8-11.6 [facility] Leukocytes [#/volume] in Blo od by Automated countOrdered By: Shen Esparza on 01-25-2025 WBC (Bld) [#/Vol] 6.4 10*3/uL Normal 3.8-11.6 [facility] Comment on above: Performed By: #### T SH3, A1C WTH eA, CMP, LIPID, [id number], CBC #### [facility] [address] Lipid Panelon 01-25-2025 LDL Cholesterol,Calculated 60 mg/dL Normal 0-100 [facility] Comment on above: Result Comment: LDL ATP III CLASSIFICATION LDL less than 100 mg/dL Optimal LDL 100-129 mg/dL Near or above optimal LDL 130-159 mg/dL Borderline high LDL 160-189 mg/dL High LDL greater than 189 mg/dL Very high Performed By: #### T SH3, A1C WTH eA, CMP, LIPID, [id number], CBC #### [facility] [address] Triglyceride w/Reflex 263 mg/dL High 0-149 [facility] Comment on above: Result Comment: TRIG ATP III CLASSIFICATION TRIG less than 150 mg/dL Normal TRIG 150-199 mg/dL Borderline high TRIG 200-500 mg/dL High TRIG greater than 500 mg/dL Very high Standard traceable to the Center for Disease Conrtrol and Prevention (CDC) test method. Performed By: #### T SH3, A1C WTH eA, CMP, LIPID, [id number], CBC #### [facility] [address] VLDL CHOLESTEROL 52 mg/dL Normal [facility] Comment on above: Performed By: #### T SH3, A1C WTH eA, CMP, LIPID, [id number], CBC #### [facility] [address] [place] [address] [place] Lymphocytes [#/volume] in Bl ood by Automated countOrdered By: Shen Esparza on 01-25-2025 Lymphocytes (Bld) [#/Vol] 2.3 10*3/uL Normal 1.00-4.8 [facility] Comment on above: Performed By: #### T SH3, A1C WTH eA, CMP, LIPID, [id number], CBC #### [facility] [address] [place] [id number] [place] Lymphocytes/100 leukocytes i n Blood by Automated countOrdered By: Shen Esparza on 01-25-2025 Lymphocytes/100 WBC (Bld) 35.1 % Normal . [facility] Comment on above: Performed By: #### T SH3, A1C WTH eA, CMP, LIPID, [id number], CBC #### [facility] [address] MCH [Entitic mass] by Automa celso countOrdered By: Shen Esparza on 01-25-2025 MCH (RBC) [Entitic mass] 31.0 pg Normal 24.7-34.3 [facility] Comment on above: Performed By: #### T SH3, A1C WTH eA, CMP, LIPID, [id number], CBC #### [facility] [address] MCHC Auto (RBC) [Mass/Vol]Or dered By: Shen Esparza on 01-25-2025 MCHC (RBC) [Mass/Vol] 34.3 g/dL 32.0-35.0 [facility] MCV [Entitic volume] by Auto mated countOrdered By: Shen Esparza on 01-25-2025 MCV (RBC) [Entitic vol] 90.4 fL Normal 80-100 [facility] Comment on above: Performed By: #### T SH3, A1C WTH eA, CMP, LIPID, [id number], CBC #### [facility] [address] [place] [address] [place] Monocytes [#/volume] in Bloo d by Automated countOrdered By: Shen Esparza on 01-25-2025 Monocytes (Bld) [#/Vol] 0.4 10*3/uL Normal 0.0-0.8 [facility] Comment on above: Performed By: #### T SH3, A1C WTH eA, CMP, LIPID, [id number], CBC #### [facility] [address] [place] [address] [place] Monocytes/100 leukocytes in Blood by Automated countOrdered By: Shen Esparza on 01-25-2025 Monocytes/100 WBC (Bld) 6.1 % Normal . [facility] Comment on above: Performed By: #### T SH3, A1C WTH eA, CMP, LIPID, [id number], CBC #### [facility] [address] Neutrophils [#/volume] in Bl ood by Automated countOrdered By: Shen Esparza on 01-25-2025 Neutrophils (Bld) [#/Vol] 3.6 10*3/uL Normal 1.8-7.7 [facility] Comment on above: Performed By: #### T SH3, A1C WTH eA, CMP, LIPID, [id number], CBC #### [facility] [address] Neutrophils/100 leukocytes i n Blood by Automated countOrdered By: Shen Esparza on 01-25-2025 Neutrophils/100 WBC (Bld) 55.3 % Normal . [facility] Comment on above: Performed By: #### T SH3, A1C WTH eA, CMP, LIPID, [id number], CBC #### [facility] [address] [place] [address] No Panel InformationOrdered By: Shen Esparza on 01-25-2025 Pharmacy Creatinine Clearance (Chem N/A [facility] Nucleated erythrocytes [Pres ence] in Blood by Automated countOrdered By: Shen Esparza on 01-25-2025 Nucleated RBC Auto Ql (Bld) 0.2 /100{WBC} 0-0.5 [facility] Platelet mean volume [Entiti c volume] in Blood by Automated countOrdered By: Shen Esparza on 01-25-2025 Platelet mean volume (Bld) [Entitic vol] 7.5 fL Normal 6.3-10.7 [facility] Comment on above: Performed By: #### T SH3, A1C WTH eA, CMP, LIPID, [id number], CBC #### [facility] [address] [place] [address] [place] Platelets [#/volume] in Bloo d by Automated countOrdered By: Shen Esparza on 01-25-2025 Platelets (Bld) [#/Vol] 270 10*3/uL Normal 150-450 [facility] Comment on above: Performed By: #### T SH3, A1C WTH eA, CMP, LIPID, [id number], CBC #### [facility] [address] Potassium [Moles/volume] in Serum or PlasmaOrdered By: Shen Esparza on 01-25-2025 Potassium [Moles/Vol] 3.9 mmol/L Normal 3.5-5.1 [facility] Comment on above: Performed By: #### T SH3, A1C WTH eA, CMP, LIPID, [id number], CBC #### [facility] [address] Protein [Mass/volume] in Ser um or PlasmaOrdered By: Shen Esparza on 01-25-2025 Protein [Mass/Vol] 6.8 g/dL Normal 6.4-8.9 [facility] Comment on above: Performed By: #### T SH3, A1C WTH eA, CMP, LIPID, [id number], CBC #### [facility] [address] Serum globulin measurement b y calculation (mass/volume)Ordered By: Shen Esparza on 01-25-2025 Globulin (S) [Mass/Vol] 2.7 g/dL Normal [facility] Comment on above: Performed By: #### T SH3, A1C WTH eA, CMP, LIPID, [id number], CBC #### [facility] [address] Serum or plasma albumin/glob ulin mass ratioOrdered By: Shen Esparza on 01-25-2025 Albumin/Globulin [Mass ratio] 1.5 {ratio} Normal [facility] Comment on above: Performed By: #### T SH3, A1C WTH eA, CMP, LIPID, [id number], CBC #### [facility] [address] Serum or plasma anion gap de terminationOrdered By: Shen Esparza on 01-25-2025 Anion gap [Moles/Vol] 12.1 mmol/L Normal 6.0-15.0 [facility] Comment on above: Performed By: #### T SH3, A1C WTH eA, CMP, LIPID, [id number], CBC #### [facility] [address] Serum or plasma total choles terol/high density lipoprotein (HDL) cholesterol mass ratOrdered By: Shen Esparza on 01-25-2025 Cholesterol.total/Choles terol in HDL [Mass ratio] 3.2 {ratio} Normal <5.0 [facility] Comment on above: Performed By: #### T SH3, A1C WTH eA, CMP, LIPID, [id number], CBC #### [facility] [address] Sodium [Moles/volume] in Ser um or PlasmaOrdered By: Shen Esparza on 01-25-2025 Sodium [Moles/Vol] 139 mmol/L Normal 136-145 [facility] Comment on above: Performed By: #### T SH3, A1C WTH eA, CMP, LIPID, [id number], CBC #### [facility] [address] Thyrotropin [Units/volume] i n Serum or PlasmaOrdered By: Shen Esparza on 01-25-2025 TSH Qn 2.46 m[IU]/L Normal 0.45-5.33 [facility] Comment on above: Performed By: #### T SH3, A1C WTH eA, CMP, LIPID, [id number], CBC #### [facility] [address] Triglyceride [Mass/volume] i n Serum or PlasmaOrdered By: Shen Esparza on 01-25-2025 Triglyceride [Mass/Vol] 263 mg/dL High 0-149 [facility] Comment on above: TRIG ATP III CLASSIF ICATIONTRIG less than 150 mg/dL NormalTRIG 150-199 mg/dL Borderline highTRIG 200-500 mg/dL High TRIG greater than 500 mg/dL Very highStandard traceable to the Center for Disease Conrtrol and Prevention (CDC) test method. Urea nitrogen [Mass/volume] in Serum or PlasmaOrdered By: Shen Esparza on 01-25-2025 Urea nitrogen [Mass/Vol] 8 mg/dL Normal 7-25 [facility] Comment on above: Performed By: #### T SH3, A1C WTH eA, CMP, LIPID, [id number], CBC #### [facility] [address] Vitamin D 25 Hydroxy Totalon 01-25-2025 Vitamin D 25 Hydroxy Total 15.1 ng/mL Low 30-100 [facility] Comment on above: Result Comment: BRIGITTE MIN D STATUS 25(OH)VITAMIN D RANGE (ng/mL) Deficient <20 Insufficient 20 to <30 Sufficient 30 to 100 Reference: Margarita Slade, Graham ACUÑA et al. Evaluation,treatment, and prevention of vitamin D deficiency; an Endocrine Society clinical practice guideline. JCEM. 2010; 96(7):1911-30. PERFORMED BY: [place] [address] PATHOLOGIST MATTRESS MAKER TIEN SINGH M.D. Performed By: #### T SH3, A1C WTH eA, CMP, LIPID, [id number], CBC #### [address] Vitamin D+Metabolites [Mass/ volume] in Serum or PlasmaOrdered By: Shen Esparza on 01-25-2025 Vitamin D+Metabolites [Mass/Vol] 15.1 ng/mL Low 30-100 [facility] Comment on above: VITAMIN D STATUS 25( OH)VITAMIN D RANGE (ng/mL) Deficient <20 Insufficient 20 to <30Sufficient 30 to 100Reference: Margarita Slade, Graham ACUÑA et al. Evaluation,treatment, and prevention of vitamin D deficiency; an Endocrine Society clinical practice guideline. JCEM. 2010; 96(7):1911-30. Urine Cultureon 01-08-2025 Bacteria identified Cx Nom (U) >100,000 colonies/ml mixed bacterial skin contaminants 2 Days PERFORMED BY: [place] [address] PATHOLOGIST MATTRESS MAKER TIEN SINGH M.D. Normal [facility] Comment on above: Performed By: #### C UU #### [address] Urine cultureOrdered By: Gabriel Goldstein on 01-08-2025 Bacteria identified Cx Nom (U) 2 Days [facility] MM TOMOSYNTHESIS SCREENING B Ion 08-19-2024 [facility] [address] [place] [address] Mammography Report Signed Patient: ANN MARIE POSADAS MR#: [id number] : 1980 Acct:[id number] Age/Sex: 44 / F ADM Date: 08/19/24 Loc: MAMMO Attending Dr: Vera Fatima Ordering Physician: Vera Fatima Results: Date of Service: 08/19/24 Follow Up: Procedure(s): MM tomosynthesis screening BI Accession Number(s): [id number] cc: Vera Fatima; Physician,Non-Staff M.DAdolfo Patient Name: ANN MARIE POSADAS MR#: [id number] : 1980 Exam Date: 08/19/2024 Ordering Doctor: [...] breast cancer at age 59. LOCATION: The [facility] BREAST COMPOSITION: The breasts are extremely dense, [...] Signed By: 08/19/24 1503 DD/ 1502 TD/TT: Banking Pin Adjuster: [facility] Radiology, Radiologist, MD - 08/19/2024 [place] [address] Mammography Report Signed Patient: ANN MARIE POSADAS MR#: [id number] : 1980 Acct:[id number] Age/Sex: 44 / F ADM Date: 08/19/24 Loc: MAMMO Attending Dr: Vera Fatima Ordering Physician: Vera Fatima Results: Date of Service: 08/19/24 Follow Up: Procedure(s): MM tomosynthesis screening BI Accession Number(s): [id number] cc: Vera Fatima; Physician,Non-Staff M.D. Patient Name: ANN MARIE POSADAS MR#: [id number] : 1980 Exam Date: 08/19/2024 Ordering Doctor: [...] breast cancer at age 59. LOCATION: [facility] BREAST COMPOSITION: The breasts are extremely dense, [...] Signed By: 08/19/24 1503 DD/ 1502 TD/TT: Banking Pin Adjuster: [facility] Radiology Study observation (narrative) [facility] MM TOMOSYNTHESIS SCREENING B IOrdered By: Radiologist Radiology on 08-19-2024 [facility] Work Phone: IGP,APTIMA HPV,AGE GDLNon AGE GDLN ACOG TESTING Note . [facility] Comment on above: TESTS RESULT FLAG UN ITS REF RANGE LAB Clinician Provided Cytology Information Source.............Cervix;Endocervix No. of containers..01 ThinPrep Vial Age Algo ACOG Regina... 32 FLAG LEGEND: L-Low Normal,H-High Normal,LL-Alert Low,HH-Alert High <-Panic Low,>-Panic High,A-Abnormal,AA-Critical Abnormal Performed at: 01 =[address] [address] Shannon Marmolejo MD, HPV APTIMA Negative Negative [facility] Comment on above: This nucleic acid am plification test detects fourteen high- risk HPV types (16,18,31,33,35,39,45,51,52,56,58,59,66,68) without differentiation. Performed at: =[address] [id number] [employer]orem[employer] Machine Operator: Shannon Marmolejo MD, Phone: [phone] Performed at: [address] [id number] [employer] Machine Operator: Shannon Marmolejo MD, Phone: [phone] IGP, APTIMA HPV, RFX 16/18,45 Note . [facility] Comment on above: TESTS RESULT FLAG UN ITS REF RANGE LAB DIAGNOSIS: 02 NEGATIVE FOR INTRAEPITHELIAL LESION OR MALIGNANCY. Specimen adequacy: 02 Satisfactory for evaluation. Endocervical and/or squamous metaplastic cells (endocervical component) are present. Performed by: 02 Flori Burch, Utilization Supervisor (ASCP) . 02 Note: Note 02 The Pap [...] Low,>-Panic High,A-Abnormal,AA-Critical Abnormal Performed at: 02 [facility] [address] [place] [address] Shannon Marmolejo MD, BRUSH-SPATULA CERVIX ENDOCERVIX [facility] Alanine aminotransferase [En zymatic activity/volume] in Serum or PlasmaOrdered By: Shen Esparza on 01-14-2024 ALT [Catalytic activity/Vol] 19 U/L 7-52 [facility] Albumin [Mass/volume] in Ser um or Plasma by Bromocresol green (BCG) dye binding methoOrdered By: Shen Esparza on 01-14-2024 Albumin BCG dye [Mass/Vol] 4.3 g/dL 3.5-5.7 [facility] Alkaline phosphatase [Enzyma tic activity/volume] in Serum or PlasmaOrdered By: Shen Esparza on 01-14-2024 ALP [Catalytic activity/Vol] 97 U/L 34-104 [facility] Aspartate aminotransferase [ Enzymatic activity/volume] in Serum or PlasmaOrdered By: Shen Esparza on 01-14-2024 AST [Catalytic activity/Vol] 29 U/L 13-39 [facility] Basophils Auto (Bld) [#/Vol] Ordered By: Shen Esparza on 01-14-2024 Basophils (Bld) [#/Vol] 0.1 10*3/uL 0.0-0.2 [facility] Basophils/100 WBC Auto (Bld) Ordered By: Shen Esparza on 01-14-2024 Basophils/100 WBC (Bld) 0.8 % . [facility] Bilirubin.total [Mass/volume ] in Serum or PlasmaOrdered By: Shen Esparza on 01-14-2024 Bilirubin [Mass/Vol] 0.5 mg/dL 0.3-1.0 [facility] Calcium [Mass/volume] in Ser um or PlasmaOrdered By: Shen Esparza on 01-14-2024 Calcium [Mass/Vol] 9.0 mg/dL 8.6-10.3 [facility] Carbon dioxide, total [Moles /volume] in Serum or PlasmaOrdered By: Shen Esparza on 01-14-2024 CO2 [Moles/Vol] 27.6 mmol/L 21.0-31.[address] [facility] Chloride [Moles/volume] in S cody or PlasmaOrdered By: Shen Esparza on 01-14-2024 Chloride [Moles/Vol] 107 mmol/L 98-107 [facility] Cholesterol [Mass/volume] in Serum or PlasmaOrdered By: Shen Esparza on 01-14-2024 Cholesterol [Mass/Vol] 136 mg/dL Low 140-200 [facility] Comment on above: Chol less than 200 m g/dl low riskChol 201-239 mg/dl borderline riskChol 240 mg/dl and greater high risk Cholesterol in LDL Calc [Mas s/Vol]Ordered By: Shen Esparza on 01-14-2024 Cholesterol in LDL [Mass/Vol] 50 mg/dL 0-100 [facility] Comment on above: LDL ATP III CLASSIFI CATIONLDL less than 100 mg/dL OptimalLDL 100-129 mg/dL Near or above optimalLDL 130-159 mg/dL Borderline highLDL 160-189 mg/dL HighLDL greater than 189 mg/dL Very high Cholesterol in VLDL Calc [Ma ss/Vol]Ordered By: Shen Esparza on 01-14-2024 Cholesterol in VLDL [Mass/Vol] 42 mg/dL [facility] Creatinine [Mass/volume] in Serum or PlasmaOrdered By: Shen Esparza on 01-14-2024 Creatinine [Mass/Vol] 0.55 mg/dL Low 0.60-1.20 [facility] Eosinophils Auto (Bld) [#/Vo l]Ordered By: Shen Esparza on 01-14-2024 Eosinophils (Bld) [#/Vol] 0.2 10*3/uL 0.0-0.45 [facility] Eosinophils/100 WBC Auto (Bl d)Ordered By: Shen Esparza on 01-14-2024 Eosinophils/100 WBC (Bld) 2.1 % . [facility] Erythrocyte distribution wid th Auto (RBC) [Ratio]Ordered By: Shen Esparza on 01-14-2024 Erythrocyte distribution width (RBC) [Ratio] 11.9 % 11.9-15.3 [facility] Globulin Calc (S) [Mass/Vol] Ordered By: Shen Esparza on 01-14-2024 Globulin (S) [Mass/Vol] 2.4 g/dL [facility] Glucose [Mass/volume] in Ser um or PlasmaOrdered By: Shen Esparza on 01-14-2024 Glucose [Mass/Vol] 94 mg/dL 70-100 [facility] Comment on above: ADA recommended refe rence rangeRandom Glucose Reference Range is dependent on time and content of last meal. Glucose of more than 200 mg/dL in a nonstressed, ambulatory subject supports the diagnosis of Diabetes Mellitus. Hematocrit Auto (Bld) [Volum e fraction]Ordered By: Shen Esparza on 01-14-2024 Hematocrit (Bld) [Volume fraction] 39.0 % 34.0-46.4 [facility] Hemoglobin [Mass/volume] in BloodOrdered By: Shen Esparza on 01-14-2024 Hemoglobin (Bld) [Mass/Vol] 13.7 g/dL 11.8-15.4 [facility] Leukocytes [#/volume] correc celso for nucleated erythrocytes in Blood by Automated counOrdered By: Shen Esparza on 01-14-2024 WBC corrected for nucl RBC Auto (Bld) [#/Vol] 7.9 10*3/uL 3.8-11.6 [facility] Lymphocytes Auto (Bld) [#/Vo l]Ordered By: Shen Esparza on 01-14-2024 Lymphocytes (Bld) [#/Vol] 2.7 10*3/uL 1.00-4.8 [facility] Lymphocytes/100 WBC Auto (Bl d)Ordered By: Shen Esparza on 01-14-2024 Lymphocytes/100 WBC (Bld) 34.4 % . [facility] MCH Auto (RBC) [Entitic mass ]Ordered By: Shen Esparza on 01-14-2024 MCH (RBC) [Entitic mass] 32.4 pg 24.7-34.3 [facility] MCHC Auto (RBC) [Mass/Vol]Or dered By: Shen Esparza on 01-14-2024 MCHC (RBC) [Mass/Vol] 35.2 g/dL High 32.0-35.0 [facility] MCV Auto (RBC) [Entitic vol] Ordered By: Shen Esparza on 01-14-2024 MCV (RBC) [Entitic vol] 92.1 fL 80-100 [facility] Monocytes Auto (Bld) [#/Vol] Ordered By: Shen Esparza on 01-14-2024 Monocytes (Bld) [#/Vol] 0.4 10*3/uL 0.0-0.8 [facility] Monocytes/100 WBC Auto (Bld) Ordered By: Shen Esparza on 01-14-2024 Monocytes/100 WBC (Bld) 5.1 % . [facility] Neutrophils Auto (Bld) [#/Vo l]Ordered By: Shen Esparza on 01-14-2024 Neutrophils (Bld) [#/Vol] 4.5 10*3/uL 1.8-7.7 [facility] Neutrophils/100 WBC Auto (Bl d)Ordered By: Shen Esparza on 01-14-2024 Neutrophils/100 WBC (Bld) 57.6 % . [facility] No Panel InformationOrdered By: Shen Esparza on 01-14-2024 Estimated GFR (CKD-EPI) > 60.0 mL/Min [facility] Creatinine Clearance (Chem N/A [facility] Nucleated erythrocytes [Pres ence] in Blood by Automated countOrdered By: Shen Esparza on 01-14-2024 Nucleated RBC Auto Ql (Bld) 0.1 /100{WBC} 0-0.5 [facility] Platelet mean volume Auto (B ld) [Entitic vol]Ordered By: Shen Esparza on 01-14-2024 Platelet mean volume (Bld) [Entitic vol] 8.1 fL 6.3-10.7 [facility] Platelets Auto (Bld) [#/Vol] Ordered By: Shen Esparza on 01-14-2024 Platelets (Bld) [#/Vol] 216 10*3/uL 150-450 [facility] Potassium [Moles/volume] in Serum or PlasmaOrdered By: Shen Esparza on 01-14-2024 Potassium [Moles/Vol] 4.2 mmol/L 3.5-5.1 [facility] Protein [Mass/volume] in Ser um or PlasmaOrdered By: Shen Esparza on 01-14-2024 Protein [Mass/Vol] 6.7 g/dL 6.4-8.9 [facility] RBC Auto (Bld) [#/Vol]Ordere d By: Shen Esparza on 01-14-2024 RBC (Bld) [#/Vol] 4.23 10*6/uL 3.60-5.00 [facility] Serum or plasma albumin/glob ulin mass ratioOrdered By: Shen Esparza on 01-14-2024 Albumin/Globulin [Mass ratio] 1.8 {ratio} [facility] Serum or plasma anion gap de terminationOrdered By: Shen Esparza on 01-14-2024 Anion gap [Moles/Vol] 10.6 mmol/L 6.0-15.0 [facility] Serum or plasma high density lipoprotein (HDL) cholesterol measurementOrdered By: Shen Esparza on 01-14-2024 Cholesterol in HDL [Mass/Vol] 43 mg/dL 23- [facility] Comment on above: HDL CHOL ATP-III CLA SSIFICATION Cardiovascular RiskHDL > or equal to 60 mg/dL LOWHDL < 40 mg/dL HIGH Serum or plasma total choles terol/high density lipoprotein (HDL) cholesterol mass ratOrdered By: Shen Esparza on 01-14-2024 Cholesterol.total/Choles terol in HDL [Mass ratio] 3.2 {ratio} <5.0 [facility] Sodium [Moles/volume] in Ser um or PlasmaOrdered By: Shen Esparza on 01-14-2024 Sodium [Moles/Vol] 141 mmol/L 136-145 [facility] Thyrotropin [Units/volume] i n Serum or PlasmaOrdered By: Shen Esparza on 01-14-2024 TSH Qn 2.25 m[IU]/L 0.45-5.33 [facility] Triglyceride [Mass/volume] i n Serum or PlasmaOrdered By: Shen Esparza on 01-14-2024 Triglyceride [Mass/Vol] 213 mg/dL High 0-149 [facility] Comment on above: TRIG ATP III CLASSIF ICATIONTRIG less than 150 mg/dL NormalTRIG 150-199 mg/dL Borderline highTRIG 200-500 mg/dL High TRIG greater than 500 mg/dL Very highStandard traceable to the Center for Disease Conrtrol and Prevention (CDC) test method. Urea nitrogen [Mass/volume] in Serum or PlasmaOrdered By: Shen Esparza on 01-14-2024 Urea nitrogen [Mass/Vol] 9 mg/dL 7 [facility] Vitamin D+Metabolites [Mass/ volume] in Serum or PlasmaOrdered By: Shen Esparza on 01-14-2024 Vitamin D+Metabolites [Mass/Vol] 18.2 ng/mL Low 30-100 [facility] Comment on above: VITAMIN D STATUS 25( OH)VITAMIN D RANGE (ng/mL) Deficient <20 Insufficient 20 to <30Sufficient 30 to 100Reference: Ela MF,Margarita NC, Graham ACUÑA, et al. Evaluation,treatment, and prevention of vitamin D deficiency; an Endocrine Society clinical practice guideline. JCEM. 2010; 96(7):1911-30. WBC Auto (Bld) [#/Vol]Ordere d By: Shen Esparza on 01-14-2024 WBC (Bld) [#/Vol] 7.9 10*3/uL 3.8-11.6 [facility] PAP ACOG PANEL 2: 30 to 65on 09-03-2021 . . Normal [facility] Comment on above: Result Comment: Perf ormed at: WB Performed By: #### [id number] #### [facility] [address] [address] [address] Carmelita Becerra Age Gdln ACOG Testing 30-65 Normal [facility] Comment on above: Performed By: #### [id number] #### [facility] [address] [address] [address] Carmelita Becerra DIAGNOSIS: Comment Normal [facility] Comment on above: Result Comment: NEGA TIVE FOR INTRAEPITHELIAL LESION OR MALIGNANCY. Performed at: WB Performed By: #### [id number] #### [facility] [address] [address] [address] Carmelita Becerra HPV Aptima Negative Normal Negative [facility] Comment on above: Result Comment: This nucleic acid amplification test detects fourteen high-risk HPV types (16,18,31,33,35,39,45,51,52,56,58,59,66,68) without differentiation. Performed at: =G Performed By: #### [id number] #### [facility] [address] [address] [address] Carmelita Becerra Methodology: Comment [facility] Comment on above: Result Comment: This liquid based ThinPrep(R) pap test was screened with the use of an image guided system. Performed at: WB Performed By: #### [id number] #### [facility] [address] [place] [address] Dr. Carmelita Becerra Note: Comment [facility] Comment on above: Result Comment: The Pap smear is a screening test designed to aid in the detection of premalignant and malignant conditions of the uterine cervix. It is not a diagnostic procedure and should not be used as the sole means of detecting cervical cancer. Both false-positive and false-negative reports do occur. . Performed at: WB Performed By: #### [id number] #### [facility] [address] [place] [address] Dr. Carmelita Becerra Performed by: Comment Normal [facility] Comment on above: Result Comment: Giuliana Sparks, Utilization Supervisor (ASCP) Performed at: WB Performed By: #### [id number] #### [facility] [address] [place] [address] Dr. Carmelita Becerra Specimen adequacy: Comment [facility] Comment on above: Result Comment: Sati sfactory for evaluation. Endocervical and/or squamous metaplastic cells (endocervical component) are present. Performed at: WB Performed By: #### [id number] #### [facility] [address] [place] [address] Dr. Carmelita Becerra PAP ACOG PANEL 2: 30 to 65on 08-25-2021 . . Normal [facility] Comment on above: Result Comment: Perf ormed at: WB Performed By: #### [id number] #### [facility] [address] [place] [address] Dr. Carmelita Becerra Age Gdln ACOG Testing 30-[address] [facility] Comment on above: Performed By: #### [id number] #### [facility] [address] [place] [address] Dr. Carmelita Becerra DIAGNOSIS: Comment [facility] Comment on above: Result Comment: NEGA TIVE FOR INTRAEPITHELIAL LESION OR MALIGNANCY. Performed at: WB Performed By: #### [id number] #### [facility] [address] [place] [address] Dr. Carmelita Becerra HPV Aptima Negative Normal Negative [facility] Comment on above: Result Comment: This nucleic acid amplification test detects fourteen high-risk HPV types (16,18,31,33,35,39,45,51,52,56,58,59,66,68) without differentiation. Performed at: =G Performed By: #### [id number] #### [facility] [address] [place] [address] Dr. Carmelita Becerra Methodology: Comment Normal [facility] Comment on above: Result Comment: This liquid based ThinPrep(R) pap test was screened with the use of an image guided system. Performed at: WB Performed By: #### [id number] #### [facility] [address] [place] [address] Dr. Carmelita Becerra Note: Comment Normal [facility] Comment on above: Result Comment: The Pap smear is a screening test designed to aid in the detection of premalignant and malignant conditions of the uterine cervix. It is not a diagnostic procedure and should not be used as the sole means of detecting cervical cancer. Both false-positive and false-negative reports do occur. . Performed at: WB Performed By: #### [id number] #### [facility] [address] [place] [address] Dr. Carmelita Becerra Performed by: Comment Normal [facility] Comment on above: Result Comment: Giuliana Sparks Utilization Supervisor (ASCP) Performed at: WB Performed By: #### [id number] #### [facility] [address] [place] [address] Dr. Carmelita Becerra Specimen adequacy: Comment Normal [facility] Comment on above: Result Comment: Sati sfactory for evaluation. Endocervical and/or squamous metaplastic cells (endocervical component) are present. Performed at: WB Performed By: #### [id number] #### [facility] [address] [place] [address] Dr. Carmelita Becerra Vital Signs Date Time Vital Sign Value Performing Clinician Facility 02-16-2025 15:37-0400 Body weight 88.05 kg Hima Deven DO Work Phone: [facility] 01-27-2025 13:05-0400 Body height 162.56 cm Shen Esparza DO Work Phone: [facility] 01-27-2025 13:05-0400 Body mass index (BMI) [Ratio] 32.4 kg/m2 Shen Roys DO Work Phone: [facility] 01-27-2025 13:05-0400 Body weight 85.72 kg hSen Roys DO Work Phone: [facility] 01-27-2025 13:05-0400 Diastolic blood pressure 84 mm[Hg] Shen Roys DO Work Phone: [facility] 01-27-2025 13:05-0400 Heart rate 89 /min Shen Roys DO Work Phone: [facility] 01-27-2025 13:05-0400 Respiratory rate 18 /min Shen Roys DO Work Phone: [facility] 01-27-2025 13:05-0400 SaO2% (BldA) [Mass fraction] 99 % Shen Esparza DO Work Phone: [facility] 01-27-2025 13:05-0400 Systolic blood pressure 126 mm[Hg] Shen Roys DO Work Phone: [facility] 01-17-2025 13:25-0400 Body weight 86.55 kg Hima Deven DO Work Phone: [facility] 01-17-2025 13:25-0400 Diastolic blood pressure 74 mm[Hg] Hima Deven DO Work Phone: [facility] 01-17-2025 13:25-0400 Systolic blood pressure 118 mm[Hg] Hima Deven DO Work Phone: [facility] 07-19-2024 12:53-0500 Body height 162.56 cm [facility] 07-19-2024 12:53-0500 Body mass index (BMI) [Ratio] 33.6 kg/m2 [facility] 07-19-2024 12:53-0500 Body weight 88.9 kg [facility] 07-19-2024 12:53-0500 Diastolic blood pressure 86 mm[Hg] [facility] 07-19-2024 12:53-0500 Heart rate 72 /min [facility] 07-19-2024 12:53-0500 Respiratory rate 16 /min [facility] 07-19-2024 12:53-0500 SaO2% (BldA) [Mass fraction] 98 % [facility] 07-19-2024 12:53-0500 Systolic blood pressure 134 mm[Hg] [facility] 07-15-2024 10:46-0500 Body weight 89 kg Vera TUBBS Work Phone: [facility] 07-15-2024 10:46-0500 Diastolic blood pressure 80 mm[Hg] Vera Fatima PA Work Phone: [facility] 07-15-2024 10:46-0500 Systolic blood pressure 126 mm[Hg] Vera Fatima PA Work Phone: [facility] 01-15-2024 13:10-0400 Body height 162.56 cm DO Shen Kirills Work Phone: [facility] 01-15-2024 13:10-0400 Body mass index (BMI) [Ratio] 74.9 kg/m2 DO Shen Kuns Work Phone: [facility] 01-15-2024 13:10-0400 Body weight 198 kg DO Shen Kuns Work Phone: [facility] 01-15-2024 13:10-0400 Diastolic blood pressure 82 mm[Hg] DO Shen Kuns Work Phone: [facility] 01-15-2024 13:10-0400 Heart rate 66 /min DO Shen Kuns Work Phone: [facility] 01-15-2024 13:10-0400 Respiratory rate 16 /min DO Shen Esparza Work Phone: [facility] 01-15-2024 13:10-0400 SaO2% (BldA) [Mass fraction] 98 % DO Shen Esparza Work Phone: [facility] 01-15-2024 13:10-0400 Systolic blood pressure 130 mm[Hg] DO Shen Esparza Work Phone: [facility] 07-17-2023 13:36-0500 Body height 162.56 cm [facility] 07-17-2023 13:36-0500 Body mass index (BMI) [Ratio] 33.7 kg/m2 [facility] 07-17-2023 13:36-0500 Body weight 89.35 kg [facility] 07-17-2023 13:36-0500 Diastolic blood pressure 80 mm[Hg] [facility] 07-17-2023 13:36-0500 Heart rate 87 /min [facility] 07-17-2023 13:36-0500 SaO2% (BldA) [Mass fraction] 98 % [facility] 07-17-2023 13:36-0500 Systolic blood pressure 126 mm[Hg] [facility] 06-27-2023 13:40-0500 Body height 162.56 cm Bonita Parra Other [facility] 06-27-2023 13:40-0500 Body mass index (BMI) [Ratio] 33.85 kg/m2 Bonita Parra Other [employer] Other 06-27-2023 13:40-0500 Body temperature 98.4 [degF] Bonita Parra Other [employer] Other 06-27-2023 13:40-0500 Body weight 89.45 kg Bonita Parra Other [facility] Other 06-27-2023 13:40-0500 Body weight 89.44 kg [facility] 06-27-2023 13:40-0500 Diastolic blood pressure 96 mm[Hg] Bonita Parra Other [facility] 06-27-2023 13:40-0500 Respiratory rate 18 /min Bonita Parra Other [facility] Other 06-27-2023 13:40-0500 SaO2% (BldA) [Mass fraction] 99 % Bonita Parra Other [facility] Other 06-27-2023 13:40-0500 Systolic blood pressure 141 mm[Hg] Bonita Parra Other [facility] 12-05-2022 12:30-0400 Body height 162.56 cm Shen Esparza Other [facility] Other 12-05-2022 12:30-0400 Body mass index (BMI) [Ratio] 33.3 kg/m2 Shen Esparza Other [employer] Other 12-05-2022 12:30-0400 Body weight 88 kg Shen Esparza Other [employer] Other 12-05-2022 12:30-0400 Diastolic blood pressure 80 mm[Hg] Shen Esparza Other [employer] Other 12-05-2022 12:30-0400 Respiratory rate 18 /min Shen Esparza Other [employer] Other 12-05-2022 12:30-0400 SaO2% (BldA) [Mass fraction] 98 % Shen Esparza Other [employer] Other 12-05-2022 12:30-0400 Systolic blood pressure 112 mm[Hg] Shen Esparza Other [employer] Other 09-24-2022 11:30-0400 Body height 162.56 cm Bonita Parra Other [employer] Other 09-24-2022 11:30-0400 Body mass index (BMI) [Ratio] 32.61 kg/m2 Bonita Parra Other [employer] Other 09-24-2022 11:30-0400 Body temperature 97.7 [degF] Bonita Parra Other [employer] Other 09-24-2022 11:30-0400 Body weight 86.18 kg Bonita Parra Other [employer] Other 09-24-2022 11:30-0400 Respiratory rate 18 /min Bonita Parra Other [employer] Other 09-24-2022 11:30-0400 SaO2% (BldA) [Mass fraction] 98 % Bonita Parra Other [employer] Other 06-06-2022 14:00-0500 Body height 162.56 cm Shen Esparza Other [employer] Other 06-06-2022 14:00-0500 Body mass index (BMI) [Ratio] 33.3 kg/m2 Shen Esparza Other [employer] Other 06-06-2022 14:00-0500 Body weight 88 kg Shen Esparza Other [employer] Other 06-06-2022 14:00-0500 Diastolic blood pressure 80 mm[Hg] Shen Esparza Other [employer] Other 06-06-2022 14:00-0500 Respiratory rate 18 /min Shen Esparza Other [employer] Other 06-06-2022 14:00-0500 SaO2% (BldA) [Mass fraction] 99 % Shen Roymartinez Other [employer] Other 06-06-2022 14:00-0500 Systolic blood pressure 122 mm[Hg] Shen Esparza Other [employer] Other 11-19-2021 13:30-0400 Body height 162.56 cm Shen Esparza Other [employer] Other 11-19-2021 13:30-0400 Body mass index (BMI) [Ratio] 32.09 kg/m2 Shen Esparza Other [employer] Other 11-19-2021 13:30-0400 Body weight 84.82 kg Shen Esparza Other [employer] Other 11-19-2021 13:30-0400 Diastolic blood pressure 70 mm[Hg] Shen Isaias Other [employer] Other 11-19-2021 13:30-0400 Respiratory rate 16 /min Shen Isaias Other [employer] Other 11-19-2021 13:30-0400 SaO2% (BldA) [Mass fraction] 99 % Shen Kirillmartinez Other [employer] Other 11-19-2021 13:30-0400 Systolic blood pressure 122 mm[Hg] Shen Isaias Other [employer] Other 05-21-2021 13:30-0500 Body height 162.56 cm Shen Esparza Other [employer] Other 05-21-2021 13:30-0500 Body mass index (BMI) [Ratio] 33.12 kg/m2 Shen Esparza Other [employer] Other 05-21-2021 13:30-0500 Body temperature 97.2 [degF] Shen Esparza Other [employer] Other 05-21-2021 13:30-0500 Body weight 87.54 kg Shen Esparza Other [employer] Other 05-21-2021 13:30-0500 Diastolic blood pressure 82 mm[Hg] Shen Esparza Other [employer] Other 05-21-2021 13:30-0500 Respiratory rate 18 /min Shen Esparza Other [employer] Other 05-21-2021 13:30-0500 SaO2% (BldA) [Mass fraction] 99 % Shen Esparza Other [employer] Other 05-21-2021 13:30-0500 Systolic blood pressure 128 mm[Hg] Shen Esparza Other [employer] Other Encounters Encounter Date Encounter Type Care Provider Facility Start: 02-16-2025 End: 02-16-2025 Departed Referred Hima Mooreo -[facility] [place] Work Phone: Start: 02-16-2025 End: 02-16-2025 Patient encounter procedure Hima Kohlerzio DO Work Phone: [facility] Comment on above: Pre-op examination; Menorrhagia with regular cycle; Abnormal uterine bleeding (AUB); Pelvic pain Start: 02-16-2025 End: 02-16-2025 Preprocedural examination done Hima Mooreo DO Work Phone: [facility] Start: 02-16-2025 End: 02-16-2025 ambulatory HIMA KOHLERZIO [facility] Work Phone: Start: 02-16-2025 End: 02-23-2025 External Result Encounter Hima Mooreo DO Work Phone: [facility] Unsolicited Start: 02-16-2025 End: 02-23-2025 External Result Encounter Hima Mooreo DO Work Phone: [facility] Unsolicited Start: 01-27-2025 End: 01-27-2025 ambulatory Shen Esparza DO Work Phone: [facility] Work Phone: Start: 01-27-2025 End: 01-27-2025 Patient encounter procedure Shen Romeo DO -[facility] [place] Work Phone: Start: 01-25-2025 End: 01-25-2025 Patient encounter procedure Shen Romeo DO -[facility] [place] Work Phone: Start: 01-25-2025 End: 01-25-2025 ambulatory Shen Esparza DO Work Phone: [facility] Work Phone: Start: 01-17-2025 End: 01-17-2025 Bamboo flowsheet Hima Mooreo DO Work Phone: [facility] Start: 01-17-2025 End: 01-17-2025 Bamboo flowsheet Hima Deven DO Work Phone: [facility] Start: 01-17-2025 End: 01-17-2025 Office outpatient visit 15 minutes Hima Deven DO Work Phone: [facility] Comment on above: Menorrhagia with irr egular cycle; Follow-up exam Start: 01-17-2025 End: 01-17-2025 ambulatory HIMA DEVEN Not Available Start: 01-08-2025 End: 01-08-2025 ambulatory Shen Esparza DO Work Phone: [facility] Work Phone: Start: 01-08-2025 End: 01-08-2025 Departed Referred Lucio Abdi DO -[facility] Start: 08-19-2024 End: 08-19-2024 Clinisync Result Encounter Vera TUBBS Work Phone: [facility] Unsolicited Start: 08-19-2024 End: 08-19-2024 Clinisync Result Encounter Vera TUBBS Work Phone: [facility] Unsolicited Start: 07-19-2024 End: 07-19-2024 ambulatory [facility] Work Phone: Start: 07-19-2024 End: 07-19-2024 Patient encounter procedure [facility] [place] Work Phone: Start: 07-15-2024 End: 07-15-2024 Bamboo flowsheet Vera TUBBS Work Phone: [facility] Start: 07-15-2024 End: 07-20-2024 Bamboo flowsheet Vera TUBBS Work Phone: [facility] Start: 07-15-2024 End: 07-20-2024 Clinisync Result Encounter Vera TUBBS Work Phone: [facility] External Department Unsolicited Start: 07-15-2024 End: 07-15-2024 ambulatory VERA FATIMA Not Available Start: 07-15-2024 End: 07-15-2024 Patient encounter procedure Vera Fatima PA Work Phone: [facility] Work Phone: Start: 07-15-2024 End: 07-15-2024 Periodic preventive med est patient 40-64yrs Vera TUBBS Work Phone: [facility] Comment on above: Well woman exam with routine gynecological exam; Breast cancer screening by mammogram Start: 01-15-2024 End: 01-15-2024 ambulatory DO Shenrolan Roymartinez Work Phone: [facility] Work Phone: Start: 01-15-2024 End: 01-15-2024 Patient encounter procedure DO Shen Isaias Work Phone: [facility] [place] Work Phone: Start: 01-14-2024 End: 01-14-2024 ambulatory DO Shen Roymartinez Work Phone: [facility] Work Phone: Start: 01-14-2024 End: 01-14-2024 Patient encounter procedure DO Shen Esparza Work Phone: [facility] [place] Work Phone: Start: 07-17-2023 End: 07-17-2023 ambulatory [facility] Work Phone: Start: 07-17-2023 End: 07-17-2023 Patient encounter procedure [facility] [place] Work Phone: Start: 06-27-2023 End: 06-27-2023 ambulatory Bonita Parra Other [employer] Other Start: 06-27-2023 Office outpatient vi sit 15 minutes Bonita Parra [facility] Start: 06-27-2023 End: 06-27-2023 Patient encounter procedure [facility]- Start: 01-07-2023 End: 01-07-2023 ambulatory Shen Esparza Other [employer] Other Start: 01-07-2023 Telephone encounter Shen Esparza [facility] Start: 12-05-2022 End: 12-05-2022 ambulatory Shen Esparza Other [employer] Other Start: 12-05-2022 Office outpatient vi sit 15 minutes Shen Esparza [facility] [place] Start: 09-24-2022 End: 09-24-2022 ambulatory Bonita Parra Other [employer] Other Start: 09-24-2022 Office outpatient vi sit 15 minutes Bonita Parra [facility] Start: 09-24-2022 Telephone encounter Sehn Esparza [facility] Start: 06-06-2022 End: 06-06-2022 ambulatory Shen Esparza Other [employer] Other Start: 06-06-2022 Office outpatient vi sit 15 minutes Shen Esparza [facility] Start: 05-14-2022 End: 05-14-2022 ambulatory Shen Esparza Other [employer] Other Start: 05-14-2022 Telephone encounter Shen Esparza [facility] Start: 11-19-2021 End: 11-19-2021 ambulatory Shen Esparza Other [employer] Other Start: 11-19-2021 Office outpatient vi sit 25 minutes Shen Esparza [facility] Start: 11-16-2021 End: 11-16-2021 ambulatory Shen Esparza Other [employer] Other Start: 11-16-2021 Telephone encounter Shen Esparza [facility] Start: 10-09-2021 End: 10-09-2021 ambulatory Shen Esparza Other [employer] Other Start: 10-09-2021 Telephone encounter Shen Esparza [facility] Start: 08-21-2021 End: 08-21-[address] JASON PADILLA Facility: Start: 05-21-2021 End: 05-21-2021 ambulatory Shen Esparza Other [employer] Other Start: 05-21-2021 Office outpatient vi sit 15 minutes Shen Esparza [facility] Procedures Date Procedure Procedure Detail Performing Clinician Start: 02-16-2025 ENDOMETRIAL BIOPSY Core y Deven DO Work Phone: Start: 02-16-2025 Urine test visual color cmprsn meths Hima Deven DO Work Phone: Start: 02-16-2025 PATHOLOGY REQUEST FO R LAB [facility] Hima Deven DO Work Phone: Start: 01-08-2025 Urine culture Shenrolan henriquez DO Work Phone: Start: 08-19-2024 MM TOMOSYNTHESIS SCR EENING BI Vera TUBBS Work Phone: Start: 07-15-2024 IGP,APTIMA HPV,AGE GDLN Vera TUBBS Work Phone: Plan of Treatment Date Care Activity Detail Author Start: 03-24-2025 End: 03-24-2025 Patient encounter procedure 03/24/2025 2:30 PM EDT Office Visit ANU LEONARD [address] [place] [address] Vera Fatima PA [address] [place], [place] [id number] [facility] Start: 02-16-2025 End: 02-16-2025 Patient encounter procedure 02/16/2025 3:30 PM EDT Procedure Visit ANU LEONARD [address] [place] [id number] Hima Carvalho, DO [address] [place] [address] [facility] Start: 02-16-2025 [facility] Start: 01-17-2025 End: 01-17-2025 Patient encounter procedure 01/17/2025 1:20 PM EDT Office Visit ANU LEONARD [address] [place] [id number] Hima Carvalho, DO [address] [place] [address] Arrived ANU LEONARD Comment on above: Arrived Start: 01-08-2025 Bacteria identified in Urine by Culture Urine Culture [facility] Start: 01-08-2025 Urine culture [facility] Start: 07-15-2024 End: 09-12-2025 MG Breast - bilateral Screening Bilateral screening mammogram Imaging Routine Breast cancer screening by mammogram Expected: 07/15/2024 (Approximate), Expires: 09/12/2025 [facility] Work Phone: Comment on above: Expected: 07/15/2024 (Approximate), Expires: 09/12/2025 Comprehensive metabo lic 1999 panel - Serum or Plasma [facility] Comprehensive metabo lic 1999 panel - Serum or Plasma [facility] THIN PREP TIS PAP AN D HR HPV DNA THIN PREP TIS PAP AND HR HPV DNA Pathology and Cytology Routine Well woman exam with routine gynecological exam Ordered: 07/15/2024 [facility] Comment on above: Ordered: 07/15/2024 Tissue exam Tissue exam Path ology and Cytology Routine Menorrhagia with regular cycle Abnormal uterine bleeding (AUB) Pelvic pain Ordered: 02/16/2025 [facility] Work Phone: Comment on above: Ordered: 02/16/2025 [facility] Immunizations Immunization Date Immunization Notes Care Provider Roseanna rodney NEGATED: Highlighted row has not occurred!09-18-2018 influenza, seasonal, injectable Patient Objection Shen Esparza Other [facility] Payers Date Payer Category Payer Self-pay [id number] 2022 Medicaid [facility] [id number] 2022 Medicaid [id number] 1982 Unknown [id number] 1982 Unknown [id number] 1259 1982 Unknown [id number] 1259 1982 Unknown [id number] 1259 1959 Unknown [id number] [employer] ( and others) [facility] [id number] Unknown [id number] Unknown [employer]/ [id number] Unknown [id number] 531 Unknown [id number] 531 Unknown [id number] 531 Social History Date Type Detail Facility Unknown if ever smoked [facility] Other Sex Assigned At [facility] Other Start: 06-19-2018 End: 01-15-2024 Tobacco smoking status NHIS Smoker (finding) [facility] Start: 1980 Sex Assigned At Female [facility] Tobacco smoking status RIIS Tobacco smoking consumption unknown [facility] Start: 1980 Sex assigned at Not on file [facility] Start: 07-19-2024 Sex Female (finding) [facility] Start: 01-15-2024 Tobacco smoking status [facility] Smokes tobacco daily (finding) [facility] Clinical Notes 11-24-2011 to 02-16-2025 Pamela Marshall - 02/16/2025 3:30 PM EDT Note Date & Type Note Facility 02-16-2025 History of Presen t illness Narrative Associated Order(s): Endometrial biopsy Post-Procedure Diagnose(s): Menorrhagia with regular cycle; Abnormal uterine bleeding (AUB) Reason for Appointment: Patient ID: Ann Marie Posadas is a 45 y.o. female who presents for Pre-op Visit and EMBX Patient presents today for a Endometrial Biopsy and Pre Op/Endometrial Biopsy appointment. Patient is scheduled to undergo Endometrial Ablation with Megan on 03-11-[address] Carvalho at [facility]. appointment. MEDICATIONS Current Outpatient Medications Medication Instructions amLODIPine (Norvasc) 10 MG tablet citalopram (CeleXA) 20 MG tablet hydroCHLOROthiazide (HYDRODiuril) 12.5 MG tablet ALLERGIES No Known Allergies PROBLEMS Active Ambulatory Problems Diagnosis Date Noted No Active Ambulatory Problems Resolved Ambulatory Problems Diagnosis Date Noted No Resolved Ambulatory Problems No Additional Past Medical History HISTORY PAST MEDICAL HISTORY SOCIAL HISTORY No past medical history on file. Social History Tobacco Use Smoking status: Not on file Smokeless tobacco: Not on file Substance Use Topics Alcohol use: Not on file Drug use: Not on file FAMILY HISTORY No family history on file. SURGICAL HISTORY Past Surgical History: Procedure Laterality Date DILATION AND CURETTAGE OF UTERUS x2 REVIEW OF SYSTEMS Review of Systems: Review of Systems Genitourinary: Positive for menstrual problem and pelvic pain. OBJECTIVE Objective: Physical Exam Constitutional: Appearance: Normal appearance. She is well-developed. Genitourinary: Vulva normal. Cardiovascular: Rate and Rhythm: Normal rate and regular rhythm. Pulmonary: Effort: Pulmonary effort is normal. Breath sounds: Normal breath sounds. Abdominal: General: Bowel sounds are normal. There is no distension. Palpations: Abdomen is soft. Tenderness: There is no abdominal tenderness. There is no guarding or rebound. Musculoskeletal: General: No swelling. Normal range of motion. Right lower leg: No edema. Left lower leg: No edema. Neurological: Mental Status: She is alert and oriented to person, place, and time. Skin: General: Skin is warm and dry. Psychiatric: Mood and Affect: Mood normal. Behavior: Behavior normal. Vitals and nursing note reviewed. Exam conducted with a beer merchant present. Vitals: There is no height or weight on file to calculate BMI. BP: No LMP recorded. ASSESSMENT & PLAN Assessment/Plan Encounter Diagnosis: ICD-10-CM 1. Pre-op examination Z01.818 2. Menorrhagia with regular cycle N92.0 3. Abnormal uterine bleeding (AUB) N93.9 4. Pelvic pain R10.2 Endometrial biopsy Date/Time: 02/16/2025 4:07 PM Performed by: Hima Carvalho DO Authorized by: Hima Carvalho DO Consent: Consent obtained: verbal Consent given by: patient Risks discussed: bleeding Alternatives discussed: alternative treatment Patient agrees, verbalizes understanding, and wants to proceed: yes Indications: Indications: abnormal uterine bleeding and other menstrual disorder Chronicity of post-menopausal bleeding: recurrent Pre-procedure: Urine test: negative Procedure: Tenaculum used: yes Findings: Cervix: normal Specimen collected: specimen collected and sent to pathology Patient tolerance: tolerated well, no immediate complications EMBX: Patient was placed in dorsal lithotomy position with feet in stirrups. A sterile speculum was placed into the vagina and the cervix was visualized. The cervix was grasped with a single tooth tenaculum. The endometrial pipette was placed through the cervix into the uterus, endometrial curettage was performed and sampling was obtained, endometrial curettings were placed in formalin, and single tooth tenaculum was removed. Excellent hemostasis was assured. All instruments were removed from vagina. Pre Op: Patient is doing well but has complaints of menorrhagia, abnormal uterine bleeding and pelvic pain. I have discussed conservative management vs. surgical management with the patient in detail and patient desires surgical management at this time. Patient will undergo Endometrial Ablation with Megan on 03-11-25. Surgical consents were signed, mmc was reviewed, and patient is to proceed to [facility] OR. Follow Up: Patient is to follow up between 1-2 weeks post operative to assess proper healing and recovery from procedure. Documented by Mela Mcneil LPN on behalf of: Hima Carvalho DO documented in this encounter [facility] 01-27-2025 Evaluation note Authored January 27, 2025 1:11pm Sooner if needed, the ER if concerns,The above note written by Jaki Calles LPN acting as human recorder, note dictated by Dr. Shen Esparza [facility] Work Phone: 1(101) 113-462408-25-2025 History of Present illness Narrative* Skylar Bernstein NP - 01/17/2025 1:20 PM EDT Reason for Appointment: Patient ID: Ann Marie Posadas is a 44 y.o. female who presents for ER Follow-up Patient presents today for Acute Visit. MEDICATIONS Current Outpatient Medications Medication Instructions amLODIPine (Norvasc) 10 MG tablet citalopram (CeleXA) 20 MG tablet hydroCHLOROthiazide (HYDRODiuril) 12.5 MG tablet ALLERGIES No Known Allergies PROBLEMS Active Ambulatory Problems Diagnosis Date Noted No Active Ambulatory Problems Resolved Ambulatory Problems Diagnosis Date Noted No Resolved Ambulatory Problems No Additional Past Medical History HISTORY PAST MEDICAL HISTORY SOCIAL HISTORY No past medical history on file. Social History Tobacco Use Smoking status: Not [...] Respiratory: Negative. Cardiovascular: Negative. Gastrointestinal: Negative. Genitourinary: Positive for menstrual problem, pelvic pain and vaginal bleeding. Musculoskeletal: Negative. Skin: Negative. Neurological: Negative. All other systems reviewed and are negative. Hematological: Negative. Endocrine: Negative. Allergic/Immunologic: Negative. OBJECTIVE Objective: Physical Exam Constitutional: Appearance: Normal appearance. She is well-developed. Cardiovascular: Rate and Rhythm: Normal rate and regular rhythm. Pulmonary: Effort: Pulmonary effort is normal. Breath sounds: Normal breath sounds. Abdominal: General: Bowel sounds are normal. There is no distension. Palpations: Abdomen is soft. Tenderness: There is no abdominal tenderness. There is no guarding or rebound. Musculoskeletal: General: No swelling. Normal range of motion. Right lower leg: No edema. Left lower leg: No edema. Neurological: Mental Status: She is alert and oriented to person, place, and time. Skin: General: Skin is warm and dry. Psychiatric: Mood and Affect: Mood normal. Behavior: Behavior normal. Vitals and nursing note reviewed. Exam conducted with a beer merchant present. Vitals: There is no height or weight on file to calculate BMI. BP: 118/74 No LMP recorded. ASSESSMENT & PLAN ICD-10-CM 1. Menorrhagia with irregular cycle N92.1 2. Follow-up exam Z09 Patient presents with vaginal bleeding over the last 3 weeks as an ER follow up from 01/08/25. Discuss Menometrorrhagia and patient would like to move forward with endometrial ablation. We will schedule her for pre-op appointment and endometrial biopsy. Documented by Skylar Bernstein NP on behalf of: Hima Carvalho DO documented in this encounterGold[facility] [id number] History of Present illness Narrative* SULY Laboy - 07/15/2024 10:00 AM EST Reason for Appointment: Patient ID: Ann Marie [...] nursing note reviewed. Exam conducted with a beer merchant present. Vitals: There is no height or [...] behalf of: SULY Laboy documented in this encounterGolden Valley Memorial [id number] Evaluation note* Encounter Date Diagnosis Assessment Notes Treatment Notes Treatment Clinical Notes Jun, Acute bacterial conjunctivitis of both [...] understanding and is agreeable to treatment plan [employer] Other 08-15-2023 Evaluation note* Encounter Date Diagnosis Assessment Notes Treatment Notes Treatment Clinical Notes Dec, Anxiety (ICD-10 - F41.9) [employer] Other 07-13-2023 Evaluation note* Encounter Date Diagnosis Assessment Notes Treatment Notes Treatment Clinical Notes Nov, Encounter for screen ing mammogram for malignant neoplasm of breast (ICD-10 - Z12.31) Baseline mammogram has been ordered for her today. 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 I have encourgaged patient [...] Educated on appropriate usage of rescue inhaler [employer] Other 05-02-2023 Evaluation note* Encounter Date Diagnosis [...] understanding and is agreeable to treatment plan. [employer] Other 01-12-2023 Evaluation note* Encounter Date Diagnosis [...] now. She is to continue as directed. [employer] Other 12-20-2022 Evaluation note* Encounter Date Diagnosis Assessment Notes Treatment Notes Treatment Clinical Notes Apr, Anxiety (ICD-10 - F41.9) [employer] Other 06-27-2022 Evaluation note* Encounter Date Diagnosis [...] on hand, she does not take often. [employer] Other 06-24-2022 Evaluation note* Encounter Date Diagnosis Assessment Notes Treatment Notes Treatment Clinical Notes Oct, Hypertension (ICD-10 - I10) [employer] Other 05-17-2022 Evaluation note* Encounter Date Diagnosis Assessment Notes Treatment Notes Treatment Clinical Notes September, Anxiety (ICD-10 - F41.9) [employer] Other 12-27-2021 Evaluation note* Encounter Date Diagnosis Assessment Notes Treatment Notes Treatment Clinical Notes Apr, Hypertension (ICD-10 - I10) Blood pressure is satisfactory, encouraged her to continue with medications as prescribed. Encouraged her to have her pressure take when she can, call with any concerns. Will see her back in 6 months. [employer] Other 07-01-2012 History general Narrative - Reported* Type Description Date Medical History hypertension Surgical History D & C miscarriage/ Dr. Padilla 2008 Surgical History D & C molar / Dr. Liliana ann 11/2011 Surgical History Tubal Ligation - Dr. Padilla 2018 [employer] Other 07-01-2012 History general Narrative - Reported* Type Description Date Medical History hypertension Medical History anxiety Surgical History D & C miscarriage/ Dr. Padilla 2008 Surgical History D & C molar / Dr. Liliana ann 11/2011 Surgical History Tubal Ligation - Dr. Padilla 2018 Hospitalization History child [employer] Other Evaluation noteNo InformationN[employer] Other evaluation note* Diagnosis Onset Date Resolution Status Anxiety and depression acute Hyperlipidemia acute Hypertension acute Lymphadenopathy of right cervical region acute [facility] Work Phone: Evaluation noteNo assessment information available [facility] Work Phone: Evaluation note* Author Marla Santacruz [facility] Authored January 15, 2024 1: 20pm The above note written by ANDRES Ruvalcaba acting as human recorder, note dictated by Dr. Shen Esparza. [facility] Work Phone: Evaluation note* Diagnosis Well woman exam with routine gynecological exam Routine gynecological examination Breast cancer screening by mammogram documented in this encounter [facility] HealthcareEvaluation note* Diagnosis Onset Date Resolution Status Admit Date Anxiety and depression acute Fe bruary 2024 12:21pm Hypertension acute June 12:21pm [facility] Work Phone: Evaluation note* Diagnosis Menorrhagia with irregular cycle Follow-up exam Unspecified follow-up examination documented in this encounter [facility] HealthcareEvaluation note* Author Jaki Calles [facility] Authored January 27, 2025 1:11pm Sooner if needed, the ER if concerns,The above note written by Jaki Calles LPN acting as human recorder, note dictated by Dr. Shen Esparza [facility] Work Phone: Evaluation note* Diagnosis Pre-op examination Menorrhagia with regular cycle Abnormal uterine bleeding (AUB) Pelvic pain [facility]No reason for referral information [facility]Hol[facility] Work Phone: Summary Purpose Family History Relationship Condition Age at Onset Recorded Date/T mirella father Alcoholism Unknown Family history of mental disorder Unknown grandparent Unknown Not Specified Hypertension Unknown sister Hypertension Unknown Relationship Condition Age at Onset Recorded Date/T mirlela father Alcoholism Unknown Family history of mental [...] and Reason for Visit Chief Complaint Poss [place] [facility], Expos ure To [place] 6 MONTH FOLLOW UP Reason for [...] 19 12:21pm Hypertension July 19, 2024 12:21pm Chief Complaint Admit Date Unknown January 08, 2025 10 :27am Chief Complaint Admit Date Unknown January 08, 2025 10 :27am E55.9 F41.9 F32.A I10 E78.5 January 6:37am 6 month f/u January 27, 2025 12:47pm Reason for Visit Admit Date Anxiety and depression January 27 12:47pm Hyperlipidemia January 27, 2025 12:47pm Hypertension January 27, 2025 12:47pm Additional Source Comments INFORMATION SOURCE (unrecogn ized section and content) DATE CREATED AUTHOR 09/04/2021 [facility] DATE CREATED AUTHOR AUTHOR'S ORGANIZ ATION 02/18/2025 [facility] EPIC DATE CREATED AUTHOR AUTHOR'S ORGANIZ ATION 02/24/2025 [facility] REASON FOR VISIT (unrecogniz ed section and content) Reason Comments Well Women Visit Reason Comments ER Follow-up Reason Comments Pre-op Visit [facility] Care Teams (unrecognized sec tion and content) [...] January 15, 2024 End: January 15, 2024 Rim Turning 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 [place] [facility] [place] [address] PCP - General 07/15/24 Team Status: Inactive Member Role Status Dates Shen Esparza DO Primary Care Provider Active Sta rt: January 08, 2025 End: January 08, 2025 Lucio Goldstein DO Attending Provider Active S tart: January 08, 2025 End: January 08, 2025 Rim Turning Machine Operator Relationship Specialty Start Date End Date Shen Esparza DO PCP - General 07/15/24 Rim Turning Machine Operator Relationship Specialty Start Date End Date Shen Esparza DO PCP - General 07/15/24 Team Status: Inactive Member Role Status Dates Shen Esparza DO Primary Care Provider Active Sta rt: January 25, 2025 End: January 25, 2025 Shen Esparza DO Attending Provider Active Start: January 25, 2025 End: January 25, 2025 Team Status: Inactive Member Role Status Dates Shen Esparza DO Primary Care Provider Active Sta rt: January 27, 2025 End: January 27, 2025 Shen Esparza DO Attending Provider Active Start: January 27, 2025 End: January 27, 2025 Rim Turning Machine Operator Relationship Specialty Start Date End Date Shen Esparza DO PCP - General 07/15/24 Team Status: Inactive Member Role Status Dates Hima Carvalho DO Attending Provider Active Start : February 16, 2025 End: February 16, 2025 Goals (unrecognized section and content) Goals may [...] BE BASED ON THE PRIMARY CLINICAL RECORDS. [employer] provides no warranty or guarantee of the accuracy or completeness of information in this document.
[2025-03-02 10:13] LABS: Anion Gap 14.6; Blood Urea Nitrogen 8.0 mg/dL (7.0-18.0); Calcium 8.8 mg/dL (8.5-10.1); Carbon Dioxide 25.5 mmol/L (21.0-32.0); Chloride 104 mmol/L (98-107); Estimated GFR (African America >60 (>=60 mL/min/1.73m^2); Estimated GFR (Non-African Ame >60 (>=60 mL/min/1.73m^2); Glucose 96 mg/dL (74-106); Potassium 4.1 mmol/L (3.5-5.1); Sodium 140 mmol/L (136-145)
== END 2025-03-02 08:59 | disposition home or self-care (01) ==
PROVIDERS: Visit Provider Obstetrics & Gynecology
DX: Z01.812 Encounter for preprocedural laboratory examination (principal); Z01.810 Encounter for preprocedural cardiovascular examination; N92.0 Excessive and frequent menstruation with regular cycle; N93.9 Abnormal uterine and vaginal bleeding, unspecified; R10.2 Pelvic and perineal pain
CPT/HCPCS: 36415; 80048; 93005

== ENCOUNTER 2025-03-11 08:41 | Day surgery (SDC) | payer MEDICAID, SELFPAY ==
--- OUTSIDE RECORDS SUMMARY | 2017-06-26 05:46 | XMS_ITS | Continuity of Care Document ---
Author Organization [facility] Address [address] [place] [address] Phone Care Team Providers Care Engineering Program Analyst Name Role Phone Tello Mcneal MD Unavailable [...] Diagnoses Date Provider Providers Copied on Encounter [facility], [address], [place], [id number], [place] tel:[phone] [facility] No Information Fredis Javed. [address], [place], [id number], [place]. tel:[phone] [facility], [address], [place], [id number], [place] tel:[phone] [facility] BP check (chief complaint) HTNBody mass index (BMI) 30.0-30.9, adult Fredis Javed. [address], [place], [id number], [place]. tel:[phone] [facility], [address] [place] [address], [id number], [place] tel:[phone] [facility] est care (chief complaint)h igh bp (chief complaint) HTN Fredis Javed. [address], [place], [id number], [place]. tel:[phone] OFFICE/OUTPAT IENT VISIT, [facility], [address], [place], [id number], [place] tel:[phone] [facility] No Information Maximo Dyer. [address], [place], [id number], [place]. tel:[phone] OFFICE/OUTPAT IENT VISIT, [facility], [address], [place], [id number], [place] tel:[phone] [facility] No Information Gopi Mixon. [address], [place], [id number]. tel:[phone] PREV VISIT, EST, AGE 18-39 [facility], [address], [place], [id number], [place] tel:[phone] [facility] No Information Gopi Mixon. [address], [place], [id number]. tel:[phone] [facility], [address], [place], [id number], [place] tel:[phone] [facility] No Information Coleman Machado. [address], [place], [id number], [place]. tel:[phone] [facility], [address], [place], [id number], [place] tel:[phone] [facility] No Information Coleman Machado. [address], [place], [id number], [place]. tel:[phone] [facility], [address], [place], [id number], [place] tel:[phone] [facility] No Information Coleman Machado. [address], [place], [id number], [place]. tel:[phone] OFFICE/OUTPAT IENT VISIT, EST [facility], [address], [place], [id number], [place] tel:[phone] [facility] No Information No Information PREV VISIT, EST, AGE 18-39 [facility], [address], [place], [id number], [place] tel:[phone] [facility] No Information Gopi Mixon. [address], [place], [id number]. tel:[phone] Family History Family Member Type Diagnosis Age At Onset Sister Problem (finding) hypertension Father Problem (finding) hypertension Father Problem (finding) alcoholism Mother Problem (finding) hypertension Problem (finding) Family history of Cance r, brain Payers Payer name Insurance type Covered green party ID Authoriza tion(s) Self Pay Indigent 09 [...] Shannan high bp Pt states was at [facility] and noticed she had high bp, [...]
[2025-03-02 09:32] VITALS: BP 146/92; PULSE 104; TEMP 36.4; O2SAT 100; BMI 32.6
[2025-03-11] VITALS (9 sets, daily range): BP systolic 128–145; BP diastolic 74–93; PULSE 69–106; TEMP 36.1–36.3; O2SAT 94–100; BMI 32.8
--- OUTSIDE RECORDS SUMMARY | 2025-03-11 08:44 | XMS_ITS | Encounter Summary ---
Author Organization [facility] Address [address] [place] [address] Care Team Providers Care Associate Professor Of Philosophy Name Role Phone KirillShen henriquez Primary Care Provider [phone] Encounter Details Date Type Department Care Team (Late st Contact Info) Description 03/02/2025 Clinisync Result Encounter [facility] External Department Unsolicited Hima Carvalho DO [address] [place], [place] [address] Social History Tobacco Use Types Packs/Day Years Used Date Smoking Tobacco: Never Assessed Comments Unknown Sex and Gender Information Value Date Recorded Sex Assigned at Not on file Legal Sex Female 7:30 PM EDT Gender Identity Not on file Sexual Orientation Not on file documented as of this encounter Plan of Treatment Upcoming Encounters Date Type Department Care Team (Late st Contact Info) Description 03/24/2025 2:30 PM EDT Office Visit ANU Zelaya OBROSEY [address] [place] [id number] Vera Greer PA [address] [place], [facility] documented as of this encounter Procedures Procedure Name Priority Date/Time Associated Diagnosis Comments ECG 12-LEAD 03/02/2025 7:28 AM EDT documented in this encounter Results * ECG 12-LEAD (03/02/2025 7:28 AM EDT) Anatomical Region Laterality Modality Other 03/02/2025 7:28 AM EDT Narrative 03/02/2025 11:19 AM EDT The [address] [id number] Electrocardiograph Report Signed Patient: ANN MARIE POSADAS MR#: [id number] : 1980 Acct:[id number] Age/Sex: 45 / F ADM Date: 03/02/25 Loc: PST Attending Dr: Hima Carvalho D.O. Ordering Physician: Hima Carvalho D.O. Date of Service: 03/02/25 Procedure(s): ECG 12 lead Accession Number(s): [id number] cc: [facility] Test Date: 2025-03-02 Pat Name: ANN MARIE POSADAS Department: Room: - Gender: Female Program Services Assistant: : 1980 Requested By: HIMA CARVALHO Order Number: [id number] Reading MD: DAMION CORREA Measurements Intervals [place] Rate: 91 P: 42 NC: 149 QRS: 47 QRSD: 81 T: 25 QT: 355 QTc: 437 Interpretive Statements SINUS RHYTHM No previous ECG available for comparison Electronically Signed On 03-02-2025 11:18:57 EDT by DAMION CORREA Dictated By: Damion Correa M.D. Signed By: 03/02/25 1119 DD/ 0728 TD/TT: Steak Tenderizer Machine: Procedure Note Radiology, Radiologist, MD - 03/02/2025 The [place] [id number] Electrocardiograph Report Signed Patient: ANN MARIE POSADAS LMR#: [id number] : 1980Acct:[id number] Age/Sex: 45 / FADM Date: 03/02/25 Loc: PST Attending Dr: Hima Carvalho D.O. Ordering Physician: Hima Carvalho D.O. Date of Service: 03/02/25 Procedure(s): ECG 12 lead Accession Number(s): [id number] cc: [facility] Test Date: 2025-03-02 Pat Name: ANN MARIE NIAPP Department: Room: - Gender: Female Program Services Assistant: : 1980 Requested By: HIMA CARVALHO Order Number: [id number] Reading MD: DAMION CORREA Measurements Intervals [place] Rate: 91 P: 42 NC: 149 QRS: 47 QRSD: 81 T: 25 QT: 355 QTc: 437 Interpretive Statements SINUS RHYTHM No previous ECG available for comparison Electronically Signed On 03-02-2025 11:18:57 EDT by DAMION CORREA Dictated By: Damion Correa M.D. Signed By:03/02/25 1119 DD/ 0728 TD/TT: Steak Tenderizer Machine: us Hima Carvalho DO [facility] Final Result documented in this encounter Visit Diagnoses Not on filedocumented in this encounter Care Teams Associate Professor Of Philosophy Relationship Specialty Start Date End Date Shen Esparza DO PCP - General 07/15/24 documented as of this encounter
--- OUTSIDE RECORDS SUMMARY | 2025-03-11 08:44 | XMS_ITS | Encounter Summary ---
Author Organization [facility] Address [address] [place] [address] [place] [address] Care Team Providers Care Snowsport Instructor Name Role Phone Shen Esparza DO Primary Care Provider [phone] Encounter Details Date Type Department Care Team (Late st Contact Info) Description 01/08/2025 Abstract [facility] [address] [place] [address] Beni Carvalho DO [address] [facility] [address] [facility] [address] [place], [facility]11 Social History Tobacco Use Types Packs/Day Years [...] PM EDT Office Visit ANU LEONARD [address] [place] [address] Vera Greer PA [address] [facility] [address] [place], [facility]11 documented as of this encounter Visit Diagnoses Not on filedocumented in this encounter Care Teams Snowsport Instructor Relationship Specialty Start Date End Date Shen Esparza DO PCP - General 07/15/24 documented as of this encounter
--- OUTSIDE RECORDS SUMMARY | 2025-03-11 08:44 | XMS_ITS | Encounter Summary ---
Author Organization [facility] Address [address] [place] [address] Care Team Providers Care Container Finisher Name Role Phone KirillShen henriquez Ousmane QUACH Primary Care Provider [phone] Encounter Details Date Type Department Care Team (Late st Contact Info) Description 03/02/2025 Clinisync Result Encounter [facility] External Department Unsolicited Beni Carvalho DO [address] [place], [facility] Social History Tobacco Use Types Packs/Day Years [...] EDT Office Visit ANU Zelaya OBROSEY [address] [place] [address] Vera Greer PA [address] [place] [address] documented as of this encounter Procedures Procedure Name Priority Date/Time Associated Diagnosis Comments ALL BASIC METABOLIC PANEL Routine 03/02/2025 9:30 AM EDT documented in this encounter Results * (ABNORMAL) ALL BASIC METABOLIC PANEL (03/02/2025 9:30 AM EDT) SODIUM 140 136 - 145 mmol/L [facility] POTASSIUM 4.1 3.5 - 5.1 mmol/L [facility] CHLORIDE 104 98 - 107 mmol/L [facility] CARBON DIOXIDE 25.5 21.0 - 32.0 mmol/L [facility] ANION GAP 14.6 [facility] GLUCOSE 96 74 - 106 mg/dL [facility] BLOOD UREA NITROGEN 8.0 7.0 - 18.0 mg/dL [facility] CREATININE 0.45(L) 0.55 - 1.02 mg/dL [facility] EGFR-AF KITTITIAN >60 >=60 mL/min/1.7 3m 2 [facility] TBH EGFR-NON AF KITT[place]IAN >60 >=60 mL/min/1.7 3m 2 [facility] BUN CREATININE RATIO 17.8 [facility] CALCIUM 8.8 8.5 - 10.1 mg/dL [facility] 03/02/2025 9:30 AM EDT 03/02/2025 9:38 AM EDT Narrative [facility] - 03/02/2025 10:15 AM EDT us Beni Deven DO [facility] documented in this encounter Visit Diagnoses Not on filedocumented in this encounter Care Teams Container Finisher Relationship Specialty Start Date End Date Shen Esparza DO PCP - General 07/15/24 documented as of this encounter
--- OUTSIDE RECORDS SUMMARY | 2025-03-11 08:44 | XMS_ITS | Encounter Summary ---
Author Organization [facility] Address [address] [place] [place] [address] Care Team Providers Care Door Machine Operator Name Role Phone Shen Esparza Primary Care Provider [phone] Encounter Details Date Type Department Care Team (Late st Contact Info) Description 03/07/2025 Telephone [facility] [address] [place] [address] [place] [address] Tiny Alberto LPN Social History Tobacco Use Types Packs/Day Years Used Date Smoking Tobacco: Never Assessed Comments Unknown Sex and Gender Information Value Date Recorded Sex Assigned at Not on file Legal Sex Female 7:30 PM EDT Gender Identity Not on file Sexual Orientation Not on file documented as of this encounter Miscellaneous Notes * Telephone Encounter - Tiny Alberto LPN - 03/07/2025 1:50 PM EDT 1:50pm Dr. Carvalho called patient and informed her of her pathology results. Patient is scheduled forsurgical procedure this FridayMarch 11. Discussed with patient that her procedure this Friday would need to be changed to D&C Hysteroscopy and sampling of tissue to be sent out prior to any further management. Informed patient that other options may need to be discussed and possible hysterectomy in the future. Please make changes with [facility] and see if patient is able to sign changes on Friday or if she needs to stop into office prior to procedure to sign new consents. Thank you--Tiny Cheung LPN documented in this encounter Plan of Treatment Upcoming Encounters Date Type Department Care Team (Late st Contact Info) Description 03/24/2025 2:30 PM EDT Office Visit ANU LEONARD [address] [place] [address] Vera Greer PA [address] [place] [address] documented as of this encounter Visit Diagnoses Not on filedocumented in this encounter Care Teams Door Machine Operator Relationship Specialty Start Date End Date Shen Esparza DO PCP - General 07/15/24 documented as of this encounter
--- OUTSIDE RECORDS SUMMARY | 2025-03-11 08:44 | XMS_ITS | Encounter Summary ---
Author Organization [facility] Address [address] [place] [address] [place] [address] Care Team Providers Care Microfilm Clerk Name Role Phone Shen Esparza DO Primary Care Provider [phone] Encounter Details Date Type Department Care Team (Late st Contact Info) Description 02/23/2025 Abstract [facility] LEONARD [address] [place] [address] Lucy Hirsch MA Social History Tobacco Use Types Packs/Day Years [...] PM EDT Office Visit ANU LEONARD [address] [address] Vera Greer PA [address] [place], [facility]11 documented as of this encounter Visit Diagnoses Not on filedocumented in this encounter Care Teams Microfilm Clerk Relationship Specialty Start Date End Date Shen Esparza DO PCP - General 07/15/24 documented as of this encounter
--- OUTSIDE RECORDS SUMMARY | 2025-03-11 08:44 | XMS_ITS | Encounter Summary ---
Author Organization [facility] Address [address] [place] [address] Care Team Providers Care Farmworker Diversified Crops Name Role Phone Shen Esparza Primary Care Provider [phone] Encounter Details Date Type Department Care Team (Late st Contact Info) Description 07/27/2024 Orders Only [facility]onda LEONARD [address] [place] [address] Tsering Tabor LPN [address] [place] [address] Social History Tobacco Use Types Packs/Day Years [...] Description 03/24/2025 2:30 PM EDT Office Visit NOMRonda LEONARD [address] [place] [address] Vera Greer PA [address] [facility] [address] [place], [email or web address] documented as of this encounter Procedures Procedure Name Priority Date/Time Associated Diagnosis Comments PAP SMEAR Routine 07/15/2024 12:00 AM EST documented in this encounter Results * Pap Smear (07/15/2024 12:00 AM EST) Swab Cervical swab / Unknown Deven Nurse [facility] CYTOLOGY ORDERABLES Final Result EXTERNAL LAB documented in this encounter Visit Diagnoses Not on filedocumented in this encounter Care Teams Farmworker Diversified Crops Relationship Specialty Start Date End Date Shen Esparza DO PCP - General 07/15/24 documented as of this encounter
--- OUTSIDE RECORDS SUMMARY | 2025-03-11 08:45 | XMS_ITS | CCD ---
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 Role Phone DR JASON PADILLA Attending Unavailable BRETT, DR GOMEZ Consulting Unavailable BRETT, DR GOMEZ Admitting Unavailable [facility], DR SHANKS Primary Care Unavailable Shen Esparza Unavailable Bonita Parra Unavailable DO Shen Esparza Primary Care Provider [phone] DO Shen Esparza Attending Provider [phone] Shen Esparza MD Primary Care Provider Shen Esparza DO Primary Care Provider [phone] Lucio Goldstein DO Attending Provider Shen Esparza DO Primary Care Provider Shen Esparza DO Attending Provider VERA FATIMA Attending Unavailable HIMA CARVALHO Attending Unavailable HIMA CARVALHO Attending Unavailable Hima Carvalho DO Attending Provider Lucio Goldstein Admitting Unavailable Lucio Goldstein Attending Unavailable Shen Esparza Primary Care Unavailable Shen Esparza Admkp Unavailable Shen Esparza Primary Care Unavailable Shen Esparza Attending Unavailable Hima Carvalho Admitting Unavailable Hima Carvalho Attending Unavailable Shen Esparza Primary Care Unavailable Medications Current Medications Medication Drug Class(es) Dates Sig (Normalized) Sig (Original) [id number] 200 actuat albuterol 0.09 mg/actuat metered dose [...] Test Name Value Interpretation Reference Range Facility ALL BASIC METABOLIC PANELon 03-02-2025 Anion gap [Moles/Vol] 14.6 mmol/L [facility] Calcium [Mass/Vol] 8.8 mg/dL 8.5 - 10. 1 mg/dL [facility] Chloride [Moles/Vol] 104 mmol/L 98 - 10 7 mmol/L [facility] CO2 [Moles/Vol] 25.5 mmol/L 21.0 - 32.0 mmol/L [facility] Creatinine [Mass/Vol] 0.45 mg/dL Low 0.55 - 1.02 mg/dL [facility] GFR/1.73 sq M.predicted CKD-EPI (S/P/Bld) [Vol rate/Area] >60 >=60 mL/min/1.73m 2 [facility] Glucose [Mass/Vol] 96 mg/dL 74 - 106 mg/dL [facility] Interpretation and review of laboratory results Abnormal [facility] Potassium [Moles/Vol] 4.1 mmol/L 3.5 - 5.1 mmol/L [facility] Sodium [Moles/Vol] 140 mmol/L 136 - 145 mmol/L [facility] TBH EGFR-NON AF BULGARIAN >60 >=6 0 mL/min/1.73m 2 [facility] Urea nitrogen [Mass/Vol] 8 mg/dL 7.0 - 18.0 mg/dL [facility] Urea nitrogen/Creatinine [Mass ratio] 17.8 mg/mg [facility] ECG 12-LEADon 03-02-2025 [place] [address] Electrocardiograph Report Signed Patient: ANN MARIE POSADAS MR#: [id number] : 1980 Acct:[id number] Age/Sex: 45 / F ADM Date: 03/02/25 Loc: PST Attending Dr: Hima Carvalho D.O. Ordering Physician: Hima Carvalho D.O. 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 Signed By: 03/02/25 1119 DD/ 0728 TD/TT: Mini Shifter: [facility] Radiology, Radiologist, MD - 03/02/2025 [facility] [place] [id number] Electrocardiograph Report Signed Patient: ANN MARIE POSADAS MR#: [id number] : 1980 Acct:[id number] Age/Sex: 45 / F ADM Date: 03/02/25 Loc: PST Attending Dr: Hima Carvalho D.O. Ordering Physician: Hima Carvalho D.O. Date of Service: 03/02/25 Procedure(s): ECG 12 lead Accession Number(s): [id number] cc: [facility] Test Date: 2025-03-02 Pat Name: ANN MARIE POSADAS Department: Room: - Gender: Female Data Management Specialist: : 1980 Requested By: HIMA CARVALHO Order Number: [id number] Reading MD: DAMION PFEIFFER Measurements Intervals [place] Rate: 91 P: 42 WV: 149 QRS: 47 QRSD: 81 T: 25 QT: 355 QTc: 437 Interpretive Statements SINUS RHYTHM No previous ECG available for comparison Electronically Signed On 03-02-2025 11:18:57 EDT by DAMION PFEIFFER Dictated By: Damion Pfeiffer M.D. Signed By: 03/02/25 1119 DD/ 0728 TD/TT: Mini Shifter: [facility] Radiology Study observation (narrative) [facility] ECG 12-LEADOrdered By: Radio logist Radiology on 03-02-2025 [facility] Work Phone: PATHOLOGY REQUEST FOR LAB CO RPon 02-23-2025 PATHOLOGY REQUEST FOR LAB LIU [facility] Comment on above: See report. Scanned copy available in EMR. [facility] Endometrial biopsyon 025 Mela Mcneil LPN 02/16/2025 [...] Patient tolerance: tolerated well, no immediate complications [facility] Endometrial biopsyOrdered By : Mela Mcneil on 02-16-2025 [facility] HCG ( test) Ql (U)O rdered By: Tsering Tabor on 02-16-2025 Interpretation and review of laboratory results Normal [facility] Work Phone: Preg Test, Ur Negative Negative [facility] Work Phone: [facility] Work Phone: Pathology Request for Lab Co rpon 02-16-2025 Pathology Request for Lab Liu Normal [facility] Comment on above: Order Comment: EMBX Result Comment: See report. Scanned copy available in EMR. PERFORMED BY: [place] [address] PATHOLOGIST UNDER PRESSER TIEN SINGH M.D. Performed By: #### P ATH TO [facility] #### [facility] [address] [place] [address] [place] A1C with Estimated Average G toshian 01-25-2025 Glucose [Mass/Vol] 88 mg/dL Normal [facility] Comment on above: Result Comment: PERF ORMED BY: [place] [address] PATHOLOGIST UNDER PRESSER TIEN SINGH M.D. Performed By: #### T SH3, A1C WTH eA, CMP, LIPID, [id number], CBC #### [facility] [address] [place] [address] [place] Alanine aminotransferase [En zymatic activity/volume] in Serum or PlasmaOrdered By: Shen Esparza on 01-25-2025 ALT [Catalytic activity/Vol] 13 U/L Normal 7-52 [facility] Comment on above: Performed By: #### T SH3, A1C WTH eA, CMP, LIPID, [id number], CBC #### [facility] [address] [place], [place] [id number] [place] Albumin [Mass/volume] in Ser um or Plasma by Bromocresol green (BCG) dye binding methoOrdered By: Shen Esparza on 01-25-2025 Albumin BCG dye [Mass/Vol] 4.1 g/dL 3.5-5.7 [facility] Alkaline phosphatase [Enzyma tic activity/volume] in Serum or PlasmaOrdered By: Shen Esparza on 01-25-2025 ALP [Catalytic activity/Vol] 101 U/L Normal 34-104 [facility] Comment on above: Performed By: #### T SH3, A1C WTH eA, CMP, LIPID, [id number], CBC #### [facility] [address] Aspartate aminotransferase [ Enzymatic activity/volume] in Serum or PlasmaOrdered By: Shen Esparza on 01-25-2025 AST [Catalytic activity/Vol] 23 U/L Normal 13-39 [facility] Comment on above: Performed By: #### T SH3, A1C WTH eA, CMP, LIPID, [id number], CBC #### [facility] [address] Basophils [#/volume] in Bloo d by Automated countOrdered By: Shen Esparza on 01-25-2025 Basophils (Bld) [#/Vol] 0.1 10*3/uL Normal 0.0-0.2 [facility] Comment on above: Result Comment: PERF ORMED BY: [place] [address] PATHOLOGIST UNDER PRESSER TIEN SINGH M.D. Performed By: #### T SH3, A1C WTH eA, CMP, LIPID, [id number], CBC #### [address] Basophils/100 leukocytes in Blood by Automated countOrdered By: Shen Esparza on 01-25-2025 Basophils/100 WBC (Bld) 0.9 % Normal . [facility] Comment on above: Performed By: #### T SH3, A1C WTH eA, CMP, LIPID, [id number], CBC #### [facility] [address] Bilirubin.total [Mass/volume ] in Serum or PlasmaOrdered By: Shen Esparza on 01-25-2025 Bilirubin [Mass/Vol] 0.4 mg/dL Normal 0.3-1.0 [facility] Comment on above: Performed By: #### T SH3, A1C WTH eA, CMP, LIPID, [id number], CBC #### [facility] [address] Blood estimated average gluc ose determination by estimation from glycated hemoglobinOrdered By: Shen Esparza on 01-25-2025 Average glucose Estimated from glycated hemoglobin (Bld) [Mass/Vol] 88 mg/dL [facility] Calcium [Mass/volume] in Ser um or PlasmaOrdered By: Shen Esparza on 01-25-2025 Calcium [Mass/Vol] 8.8 mg/dL Normal 8.6-10.3 [facility] Comment on above: Performed By: #### T SH3, A1C WTH eA, CMP, LIPID, [id number], CBC #### [facility] [address] [place] [address] [place] Carbon dioxide, total [Moles /volume] in Serum or PlasmaOrdered By: Shen Esparza on 01-25-2025 CO2 [Moles/Vol] 26.8 mmol/L Normal 21.0-31.0 [facility] Comment on above: Performed By: #### T SH3, A1C WTH eA, CMP, LIPID, [id number], CBC #### [facility] [address] [place] [address] [place] Chloride [Moles/volume] in S cody or PlasmaOrdered By: Shen Esparza on 01-25-2025 Chloride [Moles/Vol] 104 mmol/L Normal 98-107 [facility] Comment on above: Performed By: #### T SH3, A1C WTH eA, CMP, LIPID, [id number], CBC #### [facility] [address] [place] [address] [place] Cholesterol [Mass/volume] in Serum or PlasmaOrdered By: Shen Esparza on 01-25-2025 Cholesterol [Mass/Vol] 165 mg/dL Normal 140-200 [facility] Comment on above: Chol less than 200 m g/dl low riskChol 201-239 mg/dl borderline riskChol 240 mg/dl and greater high risk Result Comment: Chol less than 200 mg/dl low risk Chol 201-239 mg/dl borderline risk Chol 240 mg/dl and greater high risk Performed By: #### T SH3, A1C WTH eA, CMP, LIPID, [id number], CBC #### [facility] [address] [place] [id number] [place] Cholesterol in HDL [Mass/vol ume] in Serum or PlasmaOrdered By: Shen Esparza on 01-25-2025 Cholesterol in HDL [Mass/Vol] 52 mg/dL Normal 23-92 [facility] Comment on above: HDL CHOL ATP-III CLA SSIFICATION Cardiovascular RiskHDL > or equal to 60 mg/dL LOWHDL < 40 mg/dL HIGH Result Comment: HDL CHOL ATP-III CLASSIFICATION Cardiovascular Risk HDL > or equal to 60 mg/dL LOW HDL < 40 mg/dL HIGH Performed By: #### T SH3, A1C WTH eA, CMP, LIPID, [id number], CBC #### [facility] [address] [place] [address] [place] Cholesterol in LDL Calc [Mas s/Vol]Ordered By: Shen Esparza on 01-25-2025 Cholesterol in LDL [Mass/Vol] 60 mg/dL 0-100 [facility] Comment on above: LDL ATP III CLASSIFI CATIONLDL less than 100 mg/dL OptimalLDL 100-129 mg/dL Near or above optimalLDL 130-159 mg/dL Borderline highLDL 160-189 mg/dL HighLDL greater than 189 mg/dL Very high Cholesterol in VLDL Calc [Ma ss/Vol]Ordered By: Shen Esparza on 01-25-2025 Cholesterol in VLDL [Mass/Vol] 52 mg/dL [facility] Complete Blood Count Auto Di ffon 01-25-2025 Mean Corpuscular HGB Conc 34.3 g/dL Normal 32.0-35.0 [facility] Comment on above: Performed By: #### T SH3, A1C WTH eA, CMP, LIPID, [id number], CBC #### [facility] [address] [place] [address] [place] NRBC% 0.2 /100{WBC} Normal 0-0.5 [facility] Comment on above: Performed By: #### T SH3, A1C WTH eA, CMP, LIPID, [id number], CBC #### [facility] [address] [place] [address] [place] White Blood Count 6.4 [CFU]/mL Normal 3.8-11.6 [facility] Comment on above: Performed By: #### T SH3, A1C WTH eA, CMP, LIPID, [id number], CBC #### [facility] [address] Comprehensive Metabolic Pane edith 01-25-2025 Albumin [Mass/Vol] 4.1 g/dL Normal 3.5-5.7 [facility] Comment on above: Performed By: #### T SH3, A1C WTH eA, CMP, LIPID, [id number], CBC #### [place] [address] [place] GFR/1.73 sq M.predicted MDRD (S/P/Bld) [Vol rate/Area] mL/min/{1.73_m2} Normal [facility] Comment on above: Performed By: #### T SH3, A1C WTH eA, CMP, LIPID, [id number], CBC #### [place] [address] [place] Creatinine [Mass/volume] in Serum or PlasmaOrdered By: Shen Esparza on 01-25-2025 Creatinine [Mass/Vol] 0.49 mg/dL Low 0.60-1.[address] [facility] Comment on above: Performed By: #### T SH3, A1C WTH eA, CMP, LIPID, [id number], CBC #### [place] [address] [place] Eosinophils [#/volume] in Bl ood by Automated countOrdered By: Shen Esparza on 01-25-2025 Eosinophils (Bld) [#/Vol] 0.2 10*3/uL Normal 0.0-0.45 [facility] Comment on above: Performed By: #### T SH3, A1C WTH eA, CMP, LIPID, [id number], CBC #### [facility] [address] [place] [address] [place] Eosinophils/100 leukocytes i n Blood by Automated countOrdered By: Shen Esparza on 01-25-2025 Eosinophils/100 WBC (Bld) 2.6 % Normal . [facility] Comment on above: Performed By: #### T SH3, A1C WTH eA, CMP, LIPID, [id number], CBC #### [facility] [address] Erythrocyte distribution wid th [Ratio] by Automated countOrdered By: Shen Esparza on 01-25-2025 Erythrocyte distribution width (RBC) [Ratio] 12.0 % Normal 11.9-15.3 [facility] Comment on above: Performed By: #### T SH3, A1C WTH eA, CMP, LIPID, [id number], CBC #### [facility] [address] Erythrocytes [#/volume] in B lood by Automated countOrdered By: Shen Esparza on 01-25-2025 RBC (Bld) [#/Vol] 3.86 10*6/uL Normal 3.60-5.00 [facility] Comment on above: Performed By: #### T SH3, A1C WTH eA, CMP, LIPID, [id number], CBC #### [facility] [address] Glomerular filtration rate [ Volume Rate/Area] in Serum, Plasma or Blood by CreatinineOrdered By: Shen Esparza on 01-25-2025 Glomerular filtration rate [Volume Rate/Area] in Serum, Plasma or Blood by Creatinine > 60.0 mL/Min [facility] Glucose [Mass/volume] in Ser um or PlasmaOrdered By: Shen Esparza on 01-25-2025 Glucose [Mass/Vol] 89 mg/dL Normal 70-100 [facility] Comment on above: ADA recommended refe rence rangeRandom Glucose Reference Range is dependent on time and content of last meal. Glucose of more than 200 mg/dL in a nonstressed, ambulatory subject supports the diagnosis of Diabetes Mellitus. Result Comment: [place] om Glucose Reference Range is dependent on time and content of last meal. Glucose of more than 200 mg/dL in a nonstressed, ambulatory subject supports the diagnosis of Diabetes Mellitus. ADA recommended reference range Performed By: #### T SH3, A1C WTH eA, CMP, LIPID, [id number], CBC #### [facility] [address] Hematocrit [Volume Fraction] of Blood by Automated countOrdered By: Shen Esparza on 01-25-2025 Hematocrit (Bld) [Volume fraction] 34.9 % Normal 34.0-46.4 [facility] Comment on above: Performed By: #### T SH3, A1C WTH eA, CMP, LIPID, [id number], CBC #### [facility] [address] Hemoglobin A1c/Hemoglobin.to raman in BloodOrdered By: Shen Esparza on 01-25-2025 HbA1c (Bld) [Mass fraction] 4.7 % Normal 4.3-5.6 [facility] Comment on above: Increased risk for d iabetes: 5.7 - 6.4diabetes: >6.4glycemic control for adults with diabetes: <7.0 Result Comment: Incr eased risk for diabetes: 5.7 - 6.4 diabetes: >6.4 glycemic control for adults with diabetes: <7.0 Performed By: #### T SH3, A1C WTH eA, CMP, LIPID, [id number], CBC #### [facility] [address] [place] [address] Hemoglobin [Mass/volume] in BloodOrdered By: Shen Esparza on 01-25-2025 Hemoglobin (Bld) [Mass/Vol] 12.0 g/dL Normal 11.8-15.4 [facility] Comment on above: Performed By: #### T SH3, A1C WTH eA, CMP, LIPID, [id number], CBC #### [facility] [address] [place] [address] Leukocytes [#/volume] correc celso for nucleated erythrocytes in Blood by Automated counOrdered By: Shen Esparza on 01-25-2025 WBC corrected for nucl RBC Auto (Bld) [#/Vol] 6.4 10*3/uL 3.8-11.6 [facility] Leukocytes [#/volume] in Blo od by Automated countOrdered By: Shen Esparza on 01-25-2025 WBC (Bld) [#/Vol] 6.4 10*3/uL Normal 3.8-11.6 [facility] Comment on above: Performed By: #### T SH3, A1C WTH eA, CMP, LIPID, [id number], CBC #### [facility] [address] Lipid Panelon 01-25-2025 LDL Cholesterol,Calculated 60 mg/dL Normal 0-100 [facility] Comment on above: Result Comment: LDL ATP III CLASSIFICATION LDL less than 100 mg/dL Optimal LDL 100-129 mg/dL Near or above optimal LDL 130-159 mg/dL Borderline high LDL 160-189 mg/dL High LDL greater than 189 mg/dL Very high Performed By: #### T SH3, A1C WTH eA, CMP, LIPID, [id number], CBC #### [facility] [address] Triglyceride w/Reflex 263 mg/dL High 0-149 [facility] Comment on above: Result Comment: TRIG ATP III CLASSIFICATION TRIG less than 150 mg/dL Normal TRIG 150-199 mg/dL Borderline high TRIG 200-500 mg/dL High TRIG greater than 500 mg/dL Very high Standard traceable to the Center for Disease Conrtrol and Prevention (CDC) test method. Performed By: #### T SH3, A1C WTH eA, CMP, LIPID, [id number], CBC #### [facility] [address] VLDL CHOLESTEROL 52 mg/dL Normal [facility] Comment on above: Performed By: #### T SH3, A1C WTH eA, CMP, LIPID, [id number], CBC #### [facility] [address] [place] [address] [place] Lymphocytes [#/volume] in Bl ood by Automated countOrdered By: Shen Esparza on 01-25-2025 Lymphocytes (Bld) [#/Vol] 2.3 10*3/uL Normal 1.00-4.8 [facility] Comment on above: Performed By: #### T SH3, A1C WTH eA, CMP, LIPID, [id number], CBC #### [facility] [address] [place] [id number] [place] Lymphocytes/100 leukocytes i n Blood by Automated countOrdered By: Shen Esparza on 01-25-2025 Lymphocytes/100 WBC (Bld) 35.1 % Normal . [facility] Comment on above: Performed By: #### T SH3, A1C WTH eA, CMP, LIPID, [id number], CBC #### [facility] [address] MCH [Entitic mass] by Automa celso countOrdered By: Shen Esparza on 01-25-2025 MCH (RBC) [Entitic mass] 31.0 pg Normal 24.7-34.3 [facility] Comment on above: Performed By: #### T SH3, A1C WTH eA, CMP, LIPID, [id number], CBC #### [facility] [address] MCHC Auto (RBC) [Mass/Vol]Or dered By: Shen Esparza on 01-25-2025 MCHC (RBC) [Mass/Vol] 34.3 g/dL 32.0-35.[address] [facility] MCV [Entitic volume] by Auto mated countOrdered By: Shen Esparza on 01-25-2025 MCV (RBC) [Entitic vol] 90.4 fL Normal 80-100 [facility] Comment on above: Performed By: #### T SH3, A1C WTH eA, CMP, LIPID, [id number], CBC #### [facility] [address] [place] [address] [place] Monocytes [#/volume] in Bloo d by Automated countOrdered By: Shen Esparza on 01-25-2025 Monocytes (Bld) [#/Vol] 0.4 10*3/uL Normal 0.0-0.8 [facility] Comment on above: Performed By: #### T SH3, A1C WTH eA, CMP, LIPID, [id number], CBC #### [facility] [address] [place] [address] [place] Monocytes/100 leukocytes in Blood by Automated countOrdered By: Shen Esparza on 01-25-2025 Monocytes/100 WBC (Bld) 6.1 % Normal . [facility] Comment on above: Performed By: #### T SH3, A1C WTH eA, CMP, LIPID, [id number], CBC #### [facility] [address] Neutrophils [#/volume] in Bl ood by Automated countOrdered By: Shen Esparza on 01-25-2025 Neutrophils (Bld) [#/Vol] 3.6 10*3/uL Normal 1.8-7.7 [facility] Comment on above: Performed By: #### T SH3, A1C WTH eA, CMP, LIPID, [id number], CBC #### [facility] [address] [place] [address] [place] Neutrophils/100 leukocytes i n Blood by Automated countOrdered By: Shen Esparza on 01-25-2025 Neutrophils/100 WBC (Bld) 55.3 % Normal . [facility] Comment on above: Performed By: #### T SH3, A1C WTH eA, CMP, LIPID, [id number], CBC #### [address] No Panel InformationOrdered By: Shen Esparza on 01-25-2025 Pharmacy Creatinine Clearance (Chem N/A [facility] Nucleated erythrocytes [Pres ence] in Blood by Automated countOrdered By: Shen Esparza on 01-25-2025 Nucleated RBC Auto Ql (Bld) 0.2 /100{WBC} 0-0.5 [facility] Platelet mean volume [Entiti c volume] in Blood by Automated countOrdered By: Shen Esparza on 01-25-2025 Platelet mean volume (Bld) [Entitic vol] 7.5 fL Normal 6.3-10.7 [facility] Comment on above: Performed By: #### T SH3, A1C WTH eA, CMP, LIPID, [id number], CBC #### [facility] [address] [place] [address] [place] Platelets [#/volume] in Bloo d by Automated countOrdered By: Shen Esparza on 01-25-2025 Platelets (Bld) [#/Vol] 270 10*3/uL Normal 150-450 [facility] Comment on above: Performed By: #### T SH3, A1C WTH eA, CMP, LIPID, [id number], CBC #### [facility] [address] Potassium [Moles/volume] in Serum or PlasmaOrdered By: Shen Esparza on 01-25-2025 Potassium [Moles/Vol] 3.9 mmol/L Normal 3.5-5.[address] [facility] Comment on above: Performed By: #### T SH3, A1C WTH eA, CMP, LIPID, [id number], CBC #### [facility] [address] [place] [address] Protein [Mass/volume] in Ser um or PlasmaOrdered By: Shen Esparza on 01-25-2025 Protein [Mass/Vol] 6.8 g/dL Normal 6.4-8.9 [facility] Comment on above: Performed By: #### T SH3, A1C WTH eA, CMP, LIPID, [id number], CBC #### [address] Serum globulin measurement b y calculation (mass/volume)Ordered By: Shen Esparza on 01-25-2025 Globulin (S) [Mass/Vol] 2.7 g/dL Normal [facility] Comment on above: Performed By: #### T SH3, A1C WTH eA, CMP, LIPID, [id number], CBC #### [address] Serum or plasma albumin/glob ulin mass ratioOrdered By: Shen Esparza on 01-25-2025 Albumin/Globulin [Mass ratio] 1.5 {ratio} [facility] Comment on above: Performed By: #### T SH3, A1C WTH eA, CMP, LIPID, [id number], CBC #### [facility] [address] [place] [address] Serum or plasma anion gap de terminationOrdered By: Shen Esparza on 01-25-2025 Anion gap [Moles/Vol] 12.1 mmol/L Normal 6.0-15.0 [facility] Comment on above: Performed By: #### T SH3, A1C WTH eA, CMP, LIPID, [id number], CBC #### [facility] [address] Serum or plasma total choles terol/high density lipoprotein (HDL) cholesterol mass ratOrdered By: Shen Esparza on 01-25-2025 Cholesterol.total/Choles terol in HDL [Mass ratio] 3.2 {ratio} Normal <5.0 [facility] Comment on above: Performed By: #### T SH3, A1C WTH eA, CMP, LIPID, [id number], CBC #### [facility] [address] [place] [address] [place] Sodium [Moles/volume] in Ser um or PlasmaOrdered By: Shen Esparza on 01-25-2025 Sodium [Moles/Vol] 139 mmol/L Normal 136-145 [facility] Comment on above: Performed By: #### T SH3, A1C WTH eA, CMP, LIPID, [id number], CBC #### [facility] [address] Thyrotropin [Units/volume] i n Serum or PlasmaOrdered By: Shen Esparza on 01-25-2025 TSH Qn 2.46 m[IU]/L Normal 0.45-5.33 [facility] Comment on above: Performed By: #### T SH3, A1C WTH eA, CMP, LIPID, [id number], CBC #### [facility] [address] [place] [address] [place] Triglyceride [Mass/volume] i n Serum or PlasmaOrdered By: Shen Esparza on 01-25-2025 Triglyceride [Mass/Vol] 263 mg/dL High 0-149 [facility] Comment on above: TRIG ATP III CLASSIF ICATIONTRIG less than 150 mg/dL NormalTRIG 150-199 mg/dL Borderline highTRIG 200-500 mg/dL High TRIG greater than 500 mg/dL Very highStandard traceable to the Center for Disease Conrtrol and Prevention (CDC) test method. Urea nitrogen [Mass/volume] in Serum or PlasmaOrdered By: Shen Esparza on 01-25-2025 Urea nitrogen [Mass/Vol] 8 mg/dL Normal 7-25 [facility] Comment on above: Performed By: #### T SH3, A1C WTH eA, CMP, LIPID, [id number], CBC #### [facility] [address] [id number] [facility] Vitamin D 25 Hydroxy Totalon 01-25-2025 Vitamin D 25 Hydroxy Total 15.1 ng/mL Low 30-100 [facility] Comment on above: Result Comment: BRIGITTE MIN D STATUS 25(OH)VITAMIN D RANGE (ng/mL) Deficient <20 Insufficient 20 to <30 Sufficient 30 to 100 Reference: Margarita Slade, Graham ACUÑA, et al. Evaluation,treatment, and prevention of vitamin D deficiency; an Endocrine Society clinical practice guideline. JCEM. 2010; 96(7):1911-. PERFORMED BY: [place] [address] PATHOLOGIST UNDER PRESSER TIEN SINGH M.D. Performed By: #### T SH3, A1C WTH eA, CMP, LIPID, [id number], CBC #### [address] Vitamin D+Metabolites [Mass/ volume] in Serum or PlasmaOrdered By: Shen Esparza on 01-25-2025 Vitamin D+Metabolites [Mass/Vol] 15.1 ng/mL Low 30-100 [facility] Comment on above: VITAMIN D STATUS 25( OH)VITAMIN D RANGE (ng/mL) Deficient <20 Insufficient 20 to <30Sufficient 30 to 100Reference: Margarita Slade, Graham ACUÑA, et al. Evaluation,treatment, and prevention of vitamin D deficiency; an Endocrine Society clinical practice guideline. JCEM. 2010; 96(7):1911-30. Urine Cultureon 01-08-2025 Bacteria identified Cx Nom (U) >100,000 colonies/ml mixed bacterial skin contaminants 2 Days PERFORMED BY: [place] [address] PATHOLOGIST UNDER PRESSER TIEN SINGH M.D. Normal [facility] Comment on above: Performed By: #### C UU #### [address] Urine cultureOrdered By: Gabriel Goldstein on 01-08-2025 Bacteria identified Cx Nom (U) 2 Days [facility] MM TOMOSYNTHESIS SCREENING B Ion 08-19-[address] [address] Mammography Report Signed Patient: ANN MARIE POSADAS MR#: [id number] : 1980 Acct:[id number] Age/Sex: 44 / F ADM Date: 08/19/24 Loc: MAMMO Attending Dr: Vera Fatima Ordering Physician: Vera Fatima Results: Date of Service: 08/19/24 Follow Up: Procedure(s): MM tomosynthesis screening BI Accession Number(s): [id number] cc: Vera Fatima; Physician,Non-Staff M.D. Patient Name: ANN MARIE POSADAS MR#: [id number] : 1980 Exam Date: 08/19/2024 Ordering Doctor: [...] breast cancer at age 59. LOCATION: The [facility] BREAST COMPOSITION: The breasts are [...] Signed By: 08/19/24 1503 DD/ 1502 TD/TT: Mini Shifter: [facility], Radiologist, MD - 08/19/2024 [place] [address] Mammography Report Signed Patient: ANN MARIE POSADAS MR#: [id number] : 1980 Acct:[id number] Age/Sex: 44 / F ADM Date: 08/19/24 Loc: MAMMO Attending Dr: Vera Fatima Ordering Physician: Vera Fatima Results: Date of Service: 08/19/24 Follow Up: Procedure(s): MM tomosynthesis screening BI Accession Number(s): [id number] cc: Vera Fatima; Physician,Non-Staff M.D. Patient Name: ANN MARIE POSADAS MR#: [id number] : 1980 Exam Date: 08/19/2024 Ordering Doctor: [...] breast cancer at age 59. LOCATION: The [facility] BREAST COMPOSITION: The breasts are [...] Signed By: 08/19/24 1503 DD/ 1502 TD/TT: Mini Shifter: [facility] Radiology Study observation (narrative) [facility] MM TOMOSYNTHESIS SCREENING B IOrdered By: Radiologist Radiology on 08-19-2024 [facility] Work Phone: IGP,APTIMA HPV,AGE GDLNon 02 -25-2025 AGE GDLN ACOG TESTING Note . [facility] Comment on above: TESTS RESULT FLAG UN ITS REF RANGE LAB Clinician Provided Cytology Information Source.............Cervix;Endocervix No. of containers..01 ThinPrep Vial Age Algo ACOG Regina... FLAG LEGEND: L-Low Normal,H-High Normal,LL-Alert Low,HH-Alert High <-Panic Low,>-Panic High,A-Abnormal,AA-Critical Abnormal Performed at: 01 =G [address] [place] [address] Shannon Marmolejo MD, HPV APTIMA Negative Negative [facility] Comment on above: This nucleic acid am plification test detects fourteen high- risk HPV types (16,18,31,33,35,39,45,51,52,56,58,59,66,68) without differentiation. Performed at: =[address] [id number] [employer] Worker: Shannon Marmolejo MD, Phone: [phone] Performed at: [address] [id number] [employer] Worker: Shannon Marmolejo MD, Phone: [phone] IGP, APTIMA HPV, RFX 16/18,45 Note . [facility] Comment on above: TESTS RESULT FLAG UN ITS REF RANGE LAB DIAGNOSIS: 02 NEGATIVE FOR INTRAEPITHELIAL LESION OR MALIGNANCY. Specimen adequacy: 02 Satisfactory for evaluation. Endocervical and/or squamous metaplastic cells (endocervical component) are present. Performed by: 02 Flori Burch, Flight Test Shop Mechanic ([facility]) . 02 Note: Note 02 The Pap [...] High,A-Abnormal,AA-Critical Abnormal Performed at: 02 WB [facility] [address], [place] [address] Shannon Marmolejo MD, BRUSH-SPATULA CERVIX ENDOCERVIX [facility] Alanine aminotransferase [En zymatic activity/volume] in Serum or PlasmaOrdered By: Shen Esparza on 01-14-2024 ALT [Catalytic activity/Vol] 19 U/L 7-52 [facility] Albumin [Mass/volume] in Ser um or Plasma by Bromocresol green (BCG) dye binding methoOrdered By: Shen Esparza on 01-14-2024 Albumin BCG dye [Mass/Vol] 4.3 g/dL 3.5-5.7 [facility] Alkaline phosphatase [Enzyma tic activity/volume] in Serum or PlasmaOrdered By: Shen Esparza on 01-14-2024 ALP [Catalytic activity/Vol] 97 U/L 34-104 [facility] Aspartate aminotransferase [ Enzymatic activity/volume] in Serum or PlasmaOrdered By: Shen Esparza on 01-14-2024 AST [Catalytic activity/Vol] 29 U/L 13-39 [facility] Basophils Auto (Bld) [#/Vol] Ordered By: Shen Esparza on 01-14-2024 Basophils (Bld) [#/Vol] 0.1 10*3/uL 0.0-0.2 [facility] Basophils/100 WBC Auto (Bld) Ordered By: Shen Esparza on 01-14-2024 Basophils/100 WBC (Bld) 0.8 % . [facility] Bilirubin.total [Mass/volume ] in Serum or PlasmaOrdered By: Shen Esparza on 01-14-2024 Bilirubin [Mass/Vol] 0.5 mg/dL 0.3-1.0 [facility] Calcium [Mass/volume] in Ser um or PlasmaOrdered By: Shen Esparza on 01-14-2024 Calcium [Mass/Vol] 9.0 mg/dL 8.6-10.3 [facility] Carbon dioxide, total [Moles /volume] in Serum or PlasmaOrdered By: Shen Esparza on 01-14-2024 CO2 [Moles/Vol] 27.6 mmol/L 21.0-31.0 [facility] Chloride [Moles/volume] in S cody or PlasmaOrdered By: Shen Esparza on 01-14-2024 Chloride [Moles/Vol] 107 mmol/L 98-107 [facility] Cholesterol [Mass/volume] in Serum or PlasmaOrdered By: Shen Esparza on 01-14-2024 Cholesterol [Mass/Vol] 136 mg/dL Low 140-200 [facility] Comment on above: Chol less than 200 m g/dl low riskChol 201-239 mg/dl borderline riskChol 240 mg/dl and greater high risk Cholesterol in LDL Calc [Mas s/Vol]Ordered By: Shen Esparza on 01-14-2024 Cholesterol in LDL [Mass/Vol] 50 mg/dL 0-100 [facility] Comment on above: LDL ATP III CLASSIFI CATIONLDL less than 100 mg/dL OptimalLDL 100-129 mg/dL Near or above optimalLDL 130-159 mg/dL Borderline highLDL 160-189 mg/dL HighLDL greater than 189 mg/dL Very high Cholesterol in VLDL Calc [Ma ss/Vol]Ordered By: Shen Esparza on 01-14-2024 Cholesterol in VLDL [Mass/Vol] 42 mg/dL [facility] Creatinine [Mass/volume] in Serum or PlasmaOrdered By: Shen Esparza on 01-14-2024 Creatinine [Mass/Vol] 0.55 mg/dL Low 0.60-1.[address] [facility] Eosinophils Auto (Bld) [#/Vo l]Ordered By: Shen Esparza on 01-14-2024 Eosinophils (Bld) [#/Vol] 0.2 10*3/uL 0.0-0.45 [facility] Eosinophils/100 WBC Auto (Bl d)Ordered By: Shen Esparza on 01-14-2024 Eosinophils/100 WBC (Bld) 2.1 % . [facility] Erythrocyte distribution wid th Auto (RBC) [Ratio]Ordered By: Shen Esparza on 01-14-2024 Erythrocyte distribution width (RBC) [Ratio] 11.9 % 11.9-15.3 [facility] Globulin Calc (S) [Mass/Vol] Ordered By: Shen Esparza on 01-14-2024 Globulin (S) [Mass/Vol] 2.4 g/dL [facility] Glucose [Mass/volume] in Ser um or PlasmaOrdered By: Shen Esparza on 01-14-2024 Glucose [Mass/Vol] 94 mg/dL 70-100 [facility] Comment on above: ADA recommended refe rence rangeRandom Glucose Reference Range is dependent on time and content of last meal. Glucose of more than 200 mg/dL in a nonstressed, ambulatory subject supports the diagnosis of Diabetes Mellitus. Hematocrit Auto (Bld) [Volum e fraction]Ordered By: Shen Esparza on 01-14-2024 Hematocrit (Bld) [Volume fraction] 39.0 % 34.0-46.4 [facility] Hemoglobin [Mass/volume] in BloodOrdered By: Shen Esparza on 01-14-2024 Hemoglobin (Bld) [Mass/Vol] 13.7 g/dL 11.8-15.4 [facility] Leukocytes [#/volume] correc celso for nucleated erythrocytes in Blood by Automated counOrdered By: Shen Esparza on 01-14-2024 WBC corrected for nucl RBC Auto (Bld) [#/Vol] 7.9 10*3/uL 3.8-11.6 [facility] Lymphocytes Auto (Bld) [#/Vo l]Ordered By: Shen Esparza on 01-14-2024 Lymphocytes (Bld) [#/Vol] 2.7 10*3/uL 1.00-4.8 [facility] Lymphocytes/100 WBC Auto (Bl d)Ordered By: Shen Esparza on 01-14-2024 Lymphocytes/100 WBC (Bld) 34.4 % . [facility] MCH Auto (RBC) [Entitic mass ]Ordered By: Shen Esparza on 01-14-2024 MCH (RBC) [Entitic mass] 32.4 pg 24.7-34.3 [facility] MCHC Auto (RBC) [Mass/Vol]Or dered By: Shen Esparza on 01-14-2024 MCHC (RBC) [Mass/Vol] 35.2 g/dL High 32.0-35.[address] [facility] MCV Auto (RBC) [Entitic vol] Ordered By: Shen Esparza on 01-14-2024 MCV (RBC) [Entitic vol] 92.1 fL 80-100 [facility] Monocytes Auto (Bld) [#/Vol] Ordered By: Shen Esparza on 01-14-2024 Monocytes (Bld) [#/Vol] 0.4 10*3/uL 0.0-0.8 [facility] Monocytes/100 WBC Auto (Bld) Ordered By: Shen Esparza on 01-14-2024 Monocytes/100 WBC (Bld) 5.1 % . [facility] Neutrophils Auto (Bld) [#/Vo l]Ordered By: Shen Esparza on 01-14-2024 Neutrophils (Bld) [#/Vol] 4.5 10*3/uL 1.8-7.7 [facility] Neutrophils/100 WBC Auto (Bl d)Ordered By: Shen Esparza on 01-14-2024 Neutrophils/100 WBC (Bld) 57.6 % . [facility] No Panel InformationOrdered By: Shen Esparza on 01-14-2024 Estimated GFR (CKD-EPI) > 60.0 mL/Min [facility] Creatinine Clearance (Chem N/A [facility] Nucleated erythrocytes [Pres ence] in Blood by Automated countOrdered By: Shen Esparza on 01-14-2024 Nucleated RBC Auto Ql (Bld) 0.1 /100{WBC} 0-0.5 [facility] Platelet mean volume Auto (B ld) [Entitic vol]Ordered By: Shen Esparza on 01-14-2024 Platelet mean volume (Bld) [Entitic vol] 8.1 fL 6.3-10.7 [facility] Platelets Auto (Bld) [#/Vol] Ordered By: Shen Esparza on 01-14-2024 Platelets (Bld) [#/Vol] 216 10*3/uL 150-450 [facility] Potassium [Moles/volume] in Serum or PlasmaOrdered By: Shen Esparza on 01-14-2024 Potassium [Moles/Vol] 4.2 mmol/L 3.5-5.[address] [facility] Protein [Mass/volume] in Ser um or PlasmaOrdered By: Shen Esparza on 01-14-2024 Protein [Mass/Vol] 6.7 g/dL 6.4-8.9 [facility] RBC Auto (Bld) [#/Vol]Ordere d By: Shen Esaprza on 01-14-2024 RBC (Bld) [#/Vol] 4.23 10*6/uL 3.60-5.00 [facility] Serum or plasma albumin/glob ulin mass ratioOrdered By: Shen Esparza on 01-14-2024 Albumin/Globulin [Mass ratio] 1.8 {ratio} [facility] Serum or plasma anion gap de terminationOrdered By: Shen Esparza on 01-14-2024 Anion gap [Moles/Vol] 10.6 mmol/L 6.0-15.0 [facility] Serum or plasma high density lipoprotein (HDL) cholesterol measurementOrdered By: Shen Esparza on 01-14-2024 Cholesterol in HDL [Mass/Vol] 43 mg/dL 23- [facility] Comment on above: HDL CHOL ATP-III CLA SSIFICATION Cardiovascular RiskHDL > or equal to 60 mg/dL LOWHDL < 40 mg/dL HIGH Serum or plasma total choles terol/high density lipoprotein (HDL) cholesterol mass ratOrdered By: Sehn Esparza on 01-14-2024 Cholesterol.total/Choles terol in HDL [Mass ratio] 3.2 {ratio} <5.0 [facility] Sodium [Moles/volume] in Ser um or PlasmaOrdered By: Shen Esparza on 01-14-2024 Sodium [Moles/Vol] 141 mmol/L 136-145 [facility] Thyrotropin [Units/volume] i n Serum or PlasmaOrdered By: Shen Esparza on 01-14-2024 TSH Qn 2.25 m[IU]/L 0.45-5.33 [facility] Triglyceride [Mass/volume] i n Serum or PlasmaOrdered By: Shen Esparza on 01-14-2024 Triglyceride [Mass/Vol] 213 mg/dL High 0-149 [facility] Comment on above: TRIG ATP III CLASSIF ICATIONTRIG less than 150 mg/dL NormalTRIG 150-199 mg/dL Borderline highTRIG 200-500 mg/dL High TRIG greater than 500 mg/dL Very highStandard traceable to the Center for Disease Conrtrol and Prevention (CDC) test method. Urea nitrogen [Mass/volume] in Serum or PlasmaOrdered By: Shen Esparza on 01-14-2024 Urea nitrogen [Mass/Vol] 9 mg/dL 12-17 [facility] Vitamin D+Metabolites [Mass/ volume] in Serum or PlasmaOrdered By: Shen Esparza on 01-14-2024 Vitamin D+Metabolites [Mass/Vol] 18.2 ng/mL Low 30-100 [facility] Comment on above: VITAMIN D STATUS 25( OH)VITAMIN D RANGE (ng/mL) Deficient <20 Insufficient 20 to <30Sufficient 30 to 100Reference: Ela MF,Margarita NC, Graahm ACUÑA, et al. Evaluation,treatment, and prevention of vitamin D deficiency; an Endocrine Society clinical practice guideline. JCEM. 2010; 96(7):1911-30. WBC Auto (Bld) [#/Vol]Ordere d By: Shen Esparza on 01-14-2024 WBC (Bld) [#/Vol] 7.9 10*3/uL 3.8-11.6 [facility] PAP ACOG PANEL 2: 30 to 65on 09-03-2021 . . Normal [facility] Comment on above: Result Comment: Perf ormed at: WB Performed By: #### [id number] #### [facility] [address] [address] [address] Carmelita Becerra Age Gdln ACOG Testing 30-65 Normal [facility] Comment on above: Performed By: #### [id number] #### [facility] [address] [address] [address] Carmelita Becerra DIAGNOSIS: Comment Normal [facility] Comment on above: Result Comment: NEGA TIVE FOR INTRAEPITHELIAL LESION OR MALIGNANCY. Performed at: WB Performed By: #### [id number] #### [facility] [address] [address] [address] Carmelita Becerra HPV Aptima Negative Normal Negative [facility] Comment on above: Result Comment: This nucleic acid amplification test detects fourteen high-risk HPV types (16,18,31,33,35,39,45,51,52,56,58,59,66,68) without differentiation. Performed at: =G Performed By: #### [id number] #### [facility] [address] [address] [address] Carmelita Becerra Methodology: Comment Normal [facility] Comment on above: Result Comment: This liquid based ThinPrep(R) pap test was screened with the use of an image guided system. Performed at: WB Performed By: #### [id number] #### [facility] [address] [place] [address] Dr. Carmelita Becerra Note: Comment [facility] Comment on above: Result Comment: The Pap smear is a screening test designed to aid in the detection of premalignant and malignant conditions of the uterine cervix. It is not a diagnostic procedure and should not be used as the sole means of detecting cervical cancer. Both false-positive and false-negative reports do occur. . Performed at: WB Performed By: #### [id number] #### [facility] [address] [place] [address] Dr. Carmelita Becerra Performed by: Comment Normal [facility] Comment on above: Result Comment: Giuliana Sparks, Flight Test Shop Mechanic (ASCP) Performed at: WB Performed By: #### [id number] #### [facility] [address] [place] [address] Dr. Carmelita Becerra Specimen adequacy: Comment [facility] Comment on above: Result Comment: Sati sfactory for evaluation. Endocervical and/or squamous metaplastic cells (endocervical component) are present. Performed at: WB Performed By: #### [id number] #### [facility] [address] [place] [address] Dr. Carmelita Becerra PAP ACOG PANEL 2: 30 to 65on 08-25-2021 . . [facility] Comment on above: Result Comment: Perf ormed at: WB Performed By: #### [id number] #### [facility] [address] [place] [address] Dr. Carmelita Becerra Age Gdln ACOG Testing 30-65 [facility] Comment on above: Performed By: #### [id number] #### [facility] [address] [place] [address] Dr. Carmelita Becerra DIAGNOSIS: Comment [facility] Comment on above: Result Comment: NEGA TIVE FOR INTRAEPITHELIAL LESION OR MALIGNANCY. Performed at: WB Performed By: #### [id number] #### [facility] [address] [place] [address] Dr. Carmelita Becerra HPV Aptima Negative Normal Negative [facility] Comment on above: Result Comment: This nucleic acid amplification test detects fourteen high-risk HPV types (16,18,31,33,35,39,45,51,52,56,58,59,66,68) without differentiation. Performed at: =G Performed By: #### [id number] #### [facility] [address] [place] [address] Dr. Carmelita Becerra Methodology: Comment Normal [facility] Comment on above: Result Comment: This liquid based ThinPrep(R) pap test was screened with the use of an image guided system. Performed at: WB Performed By: #### [id number] #### [facility] [address] [place] [address] Dr. Carmelita Becerra Note: Comment Normal [facility] Comment on above: Result [...] Performed at: WB Performed By: #### [id number] #### [facility] [address] [place] [address] Dr. Carmelita Becerra Performed by: Comment Normal [facility] Comment on above: Result Comment: Giuliana Sparks Flight Test Shop Mechanic (ASCP) Performed at: WB Performed By: #### [id number] #### [facility] [address] [place] [address] Dr. Carmelita Becerra Specimen adequacy: Comment Normal [facility] Comment on above: Result Comment: Sati sfactory for evaluation. Endocervical and/or squamous metaplastic cells (endocervical component) are present. Performed at: WB Performed By: #### [id number] #### [facility] [address] [place] [address] Dr. Carmelita Becerra Vital Signs Date Time Vital Sign Value Performing Clinician Facility 02-16-2025 15:37-0400 Body weight 88.05 kg Hima Deven DO Work Phone: [facility] 01-27-2025 13:05-0400 Body height 162.56 cm Shen Esparza DO Work Phone: [facility] 01-27-2025 13:05-0400 Body mass index (BMI) [Ratio] 32.4 kg/m2 Shen Espazra DO Work Phone: [facility] 01-27-2025 13:05-0400 Body weight 85.72 kg Shen Esparza DO Work Phone: [facility] 01-27-2025 13:05-0400 Diastolic blood pressure 84 mm[Hg] Shen Roys DO Work Phone: [facility] 01-27-2025 13:05-0400 Heart rate 89 /min Shen Roys DO Work Phone: [facility] 01-27-2025 13:05-0400 Respiratory rate 18 /min Shen Esparza DO Work Phone: [facility] 01-27-2025 13:05-0400 SaO2% (BldA) [Mass fraction] 99 % Shen Esparza DO Work Phone: [facility] 01-27-2025 13:05-0400 Systolic blood pressure 126 mm[Hg] Shen Roys DO Work Phone: [facility] 01-17-2025 13:25-0400 Body weight 86.55 kg Hima Deven DO Work Phone: [facility] 01-17-2025 13:25-0400 Diastolic blood pressure 74 mm[Hg] Hima Deven DO Work Phone: [facility] 01-17-2025 13:25-0400 Systolic blood pressure 118 mm[Hg] Hima Deven DO Work Phone: [facility] 07-19-2024 12:53-0500 Body height 162.56 cm [facility] 07-19-2024 12:53-0500 Body mass index (BMI) [Ratio] 33.6 kg/m2 [facility] 07-19-2024 12:53-0500 Body weight 88.9 kg [facility] 07-19-2024 12:53-0500 Diastolic blood pressure 86 mm[Hg] [facility] 07-19-2024 12:53-0500 Heart rate 72 /min [facility] 07-19-2024 12:53-0500 Respiratory rate 16 /min [facility] 07-19-2024 12:53-0500 SaO2% (BldA) [Mass fraction] 98 % [facility] 07-19-2024 12:53-0500 Systolic blood pressure 134 mm[Hg] [facility] 07-15-2024 10:46-0500 Body weight 89 kg Vera TUBBS Work Phone: [facility] 07-15-2024 10:46-0500 Diastolic blood pressure 80 mm[Hg] Vera TUBBS Work Phone: [facility] 07-15-2024 10:46-0500 Systolic blood pressure 126 mm[Hg] Vera TUBBS Work Phone: [facility] 01-15-2024 13:10-0400 Body height 162.56 cm DO Shen Kirills Work Phone: [facility] 01-15-2024 13:10-0400 Body mass index (BMI) [Ratio] 74.9 kg/m2 DO Shen Kuns Work Phone: [facility] 01-15-2024 13:10-0400 Body weight 198 kg DO Shen Kuns Work Phone: [facility] 01-15-2024 13:10-0400 Diastolic blood pressure 82 mm[Hg] DO Shen Kuns Work Phone: [facility] 01-15-2024 13:10-0400 Heart rate 66 /min DO Shen Kuns Work Phone: [facility] 01-15-2024 13:10-0400 Respiratory rate 16 /min DO Shen Esparza Work Phone: [facility] 01-15-2024 13:10-0400 SaO2% (BldA) [Mass fraction] 98 % DO Shen Esparza Work Phone: [facility] 01-15-2024 13:10-0400 Systolic blood pressure 130 mm[Hg] DO Shen Esparza Work Phone: [facility] 07-17-2023 13:36-0500 Body height 162.56 cm [facility] 07-17-2023 13:36-0500 Body mass index (BMI) [Ratio] 33.7 kg/m2 [facility] 07-17-2023 13:36-0500 Body weight 89.35 kg [facility] 07-17-2023 13:36-0500 Diastolic blood pressure 80 mm[Hg] [facility] 07-17-2023 13:36-0500 Heart rate 87 /min [facility] 07-17-2023 13:36-0500 SaO2% (BldA) [Mass fraction] 98 % [facility] 07-17-2023 13:36-0500 Systolic blood pressure 126 mm[Hg] [facility] 06-27-2023 13:40-0500 Body height 162.56 cm Bonita Parra Other [facility] 06-27-2023 13:40-0500 Body mass index (BMI) [Ratio] 33.85 kg/m2 Bonita Parra Other [employer] Other 06-27-2023 13:40-0500 Body temperature 98.4 [degF] Bonita Parra Other [facility] Other 06-27-2023 13:40-0500 Body weight 89.45 kg Bonita Parra Other [facility] Other 06-27-2023 13:40-0500 Body weight 89.44 kg [facility] 06-27-2023 13:40-0500 Diastolic blood pressure 96 mm[Hg] Bonita Parra Other [facility] 06-27-2023 13:40-0500 Respiratory rate 18 /min Bonita Parra Other [facility] [employer] Other 06-27-2023 13:40-0500 SaO2% (BldA) [Mass fraction] 99 % Bonita Parra Other [facility] [employer] Other 06-27-2023 13:40-0500 Systolic blood pressure 141 mm[Hg] Bonita Parra Other [facility] 12-05-2022 12:30-0400 Body height 162.56 cm Shen Esparza Other [employer] Other 12-05-2022 12:30-0400 Body mass index (BMI) [Ratio] 33.3 kg/m2 Shen Esparza Other [employer] Other 12-05-2022 12:30-0400 Body weight 88 kg Shen Esparza Other [facility] Other 12-05-2022 12:30-0400 Diastolic blood pressure 80 mm[Hg] Shen Esparza Other [employer] Other 12-05-2022 12:30-0400 Respiratory rate 18 /min Shen Esparza Other [employer] Other 12-05-2022 12:30-0400 SaO2% (BldA) [Mass fraction] 98 % Shen Esparza Other [employer] Other 12-05-2022 12:30-0400 Systolic blood pressure 112 mm[Hg] Shen Esparza Other [facility] Other 09-24-2022 11:30-0400 Body height 162.56 cm Bonita Parra Other [employer] Other 09-24-2022 11:30-0400 Body mass index (BMI) [Ratio] 32.61 kg/m2 Bonita Parra Other [facility] Other 09-24-2022 11:30-0400 Body temperature 97.7 [degF] Bonita Parra Other [employer] Other 09-24-2022 11:30-0400 Body weight 86.18 kg Bonita Parra Other [facility] Other 09-24-2022 11:30-0400 Respiratory rate 18 /min Bonita Parra Other [employer] Other 09-24-2022 11:30-0400 SaO2% (BldA) [Mass fraction] 98 % Bonita Parra Other [facility] Other 06-06-2022 14:00-0500 Body height 162.56 cm Shen Esparza Other [facility] Other 06-06-2022 14:00-0500 Body mass index (BMI) [Ratio] 33.3 kg/m2 Shen Esparza Other [facility] Other 06-06-2022 14:00-0500 Body weight 88 kg Shen Esparza Other [facility] Other 06-06-2022 14:00-0500 Diastolic blood pressure 80 mm[Hg] Shen Esparza Other [facility] Other 06-06-2022 14:00-0500 Respiratory rate 18 /min Shenrolan Roymartinez Other [facility] Other 06-06-2022 14:00-0500 SaO2% (BldA) [Mass fraction] 99 % Shenrolan Roymartinez Other [facility] Other 06-06-2022 14:00-0500 Systolic blood pressure 122 mm[Hg] Shen Isaias Other [facility] Other 11-19-2021 13:30-0400 Body height 162.56 cm Shen Roymartinez Other [facility] Other 11-19-2021 13:30-0400 Body mass index (BMI) [Ratio] 32.09 kg/m2 Shen Roymartinez Other [facility] Other 11-19-2021 13:30-0400 Body weight 84.82 kg Shen Isaias Other [facility] Other 11-19-2021 13:30-0400 Diastolic blood pressure 70 mm[Hg] Shen Isaias Other [facility] Other 11-19-2021 13:30-0400 Respiratory rate 16 /min Shen Esparza Other [facility] Other 11-19-2021 13:30-0400 SaO2% (BldA) [Mass fraction] 99 % Shen Kuns Other [facility] Other 11-19-2021 13:30-0400 Systolic blood pressure 122 mm[Hg] Shen Esparza Other [facility] Other 05-21-2021 13:30-0500 Body height 162.56 cm Shen Esparza Other [facility] Other 05-21-2021 13:30-0500 Body mass index (BMI) [Ratio] 33.12 kg/m2 Shen Esparza Other [facility] Other 05-21-2021 13:30-0500 Body temperature 97.2 [degF] Shen Esparza Other [facility] Other 05-21-2021 13:30-0500 Body weight 87.54 kg Shen Esparza Other [facility] Other 05-21-2021 13:30-0500 Diastolic blood pressure 82 mm[Hg] Shen Esparza Other [facility] Other 05-21-2021 13:30-0500 Respiratory rate 18 /min Shen Esparza Other [facility] Other 05-21-2021 13:30-0500 SaO2% (BldA) [Mass fraction] 99 % Shen Esparza Other [facility] Other 05-21-2021 13:30-0500 Systolic blood pressure 128 mm[Hg] Shen Esparza Other [facility] Other Encounters Encounter Date Encounter Type Care Provider Facility Start: 03-02-2025 End: 03-02-2025 Clinisync Result Encounter Hima Mooreo DO Work Phone: [facility] Unsolicited Start: 03-02-2025 End: 03-02-2025 Clinisync Result Encounter Hima Mooreo DO Work Phone: [facility] Unsolicited Start: 02-16-2025 End: 02-16-2025 Departed Referred Hima Mooreo -Lab [facility] Work Phone: Start: 02-16-2025 End: 02-16-2025 Patient encounter procedure Hima Mooreo DO Work Phone: [facility] Comment on above: Pre-op examination; Menorrhagia with regular cycle; Abnormal uterine bleeding (AUB); Pelvic pain Start: 02-16-2025 End: 02-16-2025 Preprocedural examination done Hima Carvalho DO Work Phone: [facility] Start: 02-16-2025 End: 02-16-2025 ambulatory HIMA CARVALHO [facility] Work Phone: Start: 02-16-2025 End: 02-23-2025 External Result Encounter Hima Carvalho DO Work Phone: [facility] Unsolicited Start: 02-16-2025 End: 02-23-2025 External Result Encounter Hima Carvalho DO Work Phone: [facility] Unsolicited Start: 01-27-2025 End: 01-27-2025 ambulatory Shen Esparza Work Phone: [facility] Work Phone: Start: 01-27-2025 End: 01-27-2025 Patient encounter procedure Shen Romeo DO -[facility] Work Phone: Start: 01-25-2025 End: 01-25-2025 Patient encounter procedure Shen Romeo DO -[facility] [place] Work Phone: Start: 01-25-2025 End: 01-25-2025 ambulatory Shen Esparza DO Work Phone: [facility] Work Phone: Start: 01-17-2025 End: 01-17-2025 Bamboo flowsheet Hima Deven DO Work Phone: [facility] Start: 01-17-2025 End: 01-17-2025 Bamboo flowsheet Hima Deven DO Work Phone: [facility] Start: 01-17-2025 End: 01-17-2025 Office outpatient visit 15 minutes Hima Deven DO Work Phone: [facility] Comment on above: Menorrhagia with irr egular cycle; Follow-up exam Start: 01-17-2025 End: 01-17-2025 ambulatory HIMA DEVEN Not Available Start: 01-08-2025 End: 01-08-2025 ambulatory Shen Esparza DO Work Phone: [facility] Work Phone: Start: 01-08-2025 End: 01-08-2025 Departed Referred Lucio Abdi DO -LAB [facility] Start: 08-19-2024 End: 08-19-2024 Clinisync Result Encounter Vera TUBBS Work Phone: [facility] Unsolicited Start: 08-19-2024 End: 08-19-2024 Clinisync Result Encounter Vera TUBBS Work Phone: [facility] Unsolicited Start: 07-19-2024 End: 07-19-2024 ambulatory [facility] Work Phone: Start: 07-19-2024 End: 07-19-2024 Patient encounter procedure [facility] [place] Work Phone: Start: 07-15-2024 End: 07-15-2024 Bamboo [...] 01-15-2024 ambulatory DO Shen Esparza Work Phone: [facility] Work Phone: Start: 01-15-2024 End: 01-15-2024 Patient encounter procedure DO Shen Esparza Work Phone: [facility] [place] Work Phone: Start: 01-14-2024 End: 01-14-2024 ambulatory DO Shen Esparza Work Phone: [facility] Work Phone: Start: 01-14-2024 End: 01-14-2024 Patient encounter procedure DO Shen Esparza Work Phone: [facility] [place] Work Phone: Start: 07-17-2023 End: 07-17-2023 ambulatory [facility] Work Phone: Start: 07-17-2023 End: 07-17-2023 Patient encounter procedure [facility] [place] Work Phone: Start: 06-27-2023 End: 06-27-2023 ambulatory Bonita Parra Other [facility] Other Start: 06-27-2023 Office outpatient vi sit 15 minutes Bonita Parra [facility] Start: 06-27-2023 End: 06-27-2023 Patient encounter procedure [facility]- Start: 01-07-2023 End: 01-07-2023 ambulatory Shen Esparza Other [facility] Other Start: 01-07-2023 Telephone encounter Shen Esparza [facility] [place] Start: 12-05-2022 End: 12-05-2022 ambulatory Shen Esparza Other [facility] Other Start: 12-05-2022 Office outpatient vi sit 15 minutes Shen Esparza [facility] [place] Start: 09-24-2022 End: 09-24-2022 ambulatory Bonita Parra Other [facility] Other Start: 09-24-2022 Office outpatient vi sit 15 minutes Bonita Parra [facility] Start: 09-24-2022 Telephone encounter Shen Esparza [facility] Start: 06-06-2022 End: 06-06-2022 ambulatory Shen Esparza Other [facility] Other Start: 06-06-2022 Office outpatient vi sit 15 minutes Shen Esparza [facility] Start: 05-14-2022 End: 05-14-2022 ambulatory Shen Esparza Other [facility] Other Start: 05-14-2022 Telephone encounter Shen Esparza [facility] Start: 11-19-2021 End: 11-19-2021 ambulatory Shen Esparza Other [facility] Other Start: 11-19-2021 Office outpatient vi sit 25 minutes Shen Esparza [facility] Start: 11-16-2021 End: 11-16-2021 ambulatory Shen Esparza Other [facility] Other Start: 11-16-2021 Telephone encounter Shen Esparza [facility] Start: 10-09-2021 End: 10-09-2021 ambulatory Shen Esparza Other [facility] Other Start: 10-09-2021 Telephone encounter Shen Esparza [facility] Start: 08-21-2021 End: 08-21-[address] JASON PADILLA Facility: Start: 05-21-2021 End: 05-21-2021 ambulatory Shen Esparza Other [facility] Other Start: 05-21-2021 Office outpatient vi sit 15 minutes Shen Esparza [facility] Procedures Date Procedure Procedure Detail Performing Clinician Start: 03-02-2025 ALL BASIC METABOLIC PANEL Hima Deven DO Work Phone: Start: 03-02-2025 ECG 12-LEAD Hima Fazi o DO Work Phone: Start: 02-16-2025 ENDOMETRIAL BIOPSY Core y Deven DO Work Phone: Start: 02-16-2025 Urine test visual color cmprsn meths Hima Deven DO Work Phone: Start: 02-16-2025 PATHOLOGY REQUEST FO R LAB LIU Hima Deven DO Work Phone: Start: 01-08-2025 Urine culture Shen henriquez DO Work Phone: Start: 08-19-2024 MM TOMOSYNTHESIS SCR EENING BI Vera Fatima PA Work Phone: Start: 07-15-2024 IGP,APTIMA HPV,AGE GDLN Vera TUBBS Work Phone: Plan of Treatment Date Care Activity Detail Author Start: 03-24-2025 End: 03-24-2025 Patient encounter procedure 03/24/2025 2:30 PM EDT Office Visit [facility] [address] [facility] [place] [id number] Vera Fatima, SULY [address] [place] [address] [facility] Start: 02-16-2025 End: 02-16-2025 Patient encounter procedure 02/16/2025 3:30 PM EDT Procedure Visit ANU LEONARD [address] [place] [phone] Hima Carvalho, [address] [place] [address] [facility] Start: 02-16-2025 [facility] Start: 01-17-2025 End: 01-17-2025 Patient encounter procedure 01/17/2025 1:20 PM EDT Office Visit ANU LEONARD [address] [place] [phone] Hima Carvalho, [address] [place] [address] Arrived [facility] Comment on above: Arrived Start: 01-08-2025 Bacteria identified in Urine by Culture Urine Culture [facility] Start: 01-08-2025 Urine culture [facility] Start: 07-15-2024 End: 09-12-2025 MG Breast - bilateral Screening Bilateral screening mammogram Imaging Routine Breast cancer screening by mammogram Expected: 07/15/2024 (Approximate), Expires: 09/12/2025 [facility] Work Phone: Comment on above: Expected: 07/15/2024 (Approximate), Expires: 09/12/2025 Comprehensive metabo lic 1999 panel - Serum or Plasma [facility] Comprehensive metabo lic 1999 panel - Serum or Plasma [facility] THIN PREP TIS PAP AN D HR HPV DNA THIN PREP TIS PAP AND HR HPV DNA Pathology and Cytology Routine Well woman exam with routine gynecological exam Ordered: 07/15/2024 [facility] Comment on above: Ordered: 07/15/2024 Tissue exam Tissue exam Path ology and Cytology Routine Menorrhagia with regular cycle Abnormal uterine bleeding (AUB) Pelvic pain Ordered: 02/16/2025 [facility] Work Phone: Comment on above: Ordered: 02/16/2025 [facility] Immunizations Immunization Date Immunization Notes Care Provider Roseanna rodney NEGATED: Highlighted row has not occurred!09-18-2018 influenza, seasonal, injectable Patient Objection Shen Esparza Other [facility] Payers Date Payer Category Payer Self-pay [id number] 2022 Medicaid [facility] [id number] 2022 Medicaid [id number] 1982 Unknown [id number] 1982 Unknown [id number] 1259 1982 Unknown [id number] 1259 1982 Unknown [id number] 1259 1959 Unknown [id number] Department [facility] ( and others) [facility] Net [employer]-[facility] [id number] Unknown [id number] Unknown [place] BC/BS [id number] Unknown [id number] Unknown [id number] Unknown [id number] Social History Date Type Detail Facility Unknown if ever smoked [facility] [employer] Other Sex Assigned At [facility] Other Start: 06-19-2018 End: 01-15-2024 Tobacco smoking status TNIS Smoker (finding) [facility] Start: 1980 Sex Assigned At Female F [facility] Tobacco smoking status TNIS Tobacco smoking consumption unknown [facility] Start: 1980 Sex assigned at Not on file [facility] Start: 07-19-2024 Sex Female (finding) [facility] Start: 01-15-2024 Tobacco smoking status TNIS Smokes tobacco daily (finding) [facility] Clinical Notes 11-24-2011 to 02-16-2025 Pamela Marshall [...] on 03-11-[address] Carvalho at [facility]. appointment. MEDICATIONS Current Outpatient Medications [...] nursing note reviewed. Exam conducted with a sales operations assistant present. Vitals: There is no height [...] reviewed, and patient is to proceed to [facility]. Follow Up: Patient is to follow up between 1-2 weeks post operative to assess proper healing and recovery from procedure. Documented by Mela Mcneil LPN on behalf of: Hima Carvalho DO documented in this encounter [facility] 01-27-2025 Evaluation note Authored January 27, 2025 1:11pm Sooner if needed, the ER if concerns,The above note written by Jaki Calles LPN acting as human recorder, note dictated by Dr. Shen Esparza [facility] Work Phone: 1(152) 836-908008-25-2025 History of Present illness Narrative* Skylar Bernstein [...] nursing note reviewed. Exam conducted with a sales operations assistant present. Vitals: There is no height [...] of: Hima Carvalho DO documented in this encounterSSM Health [id number] History of Present illness Narrative* SULY Laboy - 07/15/2024 10:00 AM EST Reason for Appointment: Patient ID: Ann Marie Posadas is a 44 y.o. female who presents for [facility] Women Visit Patient presents today for Annual [...] nursing note reviewed. Exam conducted with a sales operations assistant present. Vitals: There is no height [...] behalf of: SULY Laboy documented in this encounterSSM Health [id number] Evaluation note* Encounter Date Diagnosis Assessment Notes [...] understanding and is agreeable to treatment plan [facility] Other 08-15-2023 Evaluation note* Encounter Date Diagnosis Assessment Notes Treatment Notes Treatment Clinical Notes Dec, Anxiety (ICD-10 - F41.9) [facility] Other 07-13-2023 Evaluation note* Encounter Date Diagnosis Assessment Notes Treatment Notes Treatment Clinical Notes Nov, Encounter for screen ing mammogram for malignant neoplasm of breast (ICD-10 - Z12.31) Baseline mammogram has been ordered for her today. She is looking for new CUP SETTER LOCKSTITCH for her care. I have encourgaged patient [...] Educated on appropriate usage of rescue inhaler [facility] Other 05-02-2023 Evaluation note* Encounter Date Diagnosis [...] understanding and is agreeable to treatment plan. [facility] Other 01-12-2023 Evaluation note* Encounter Date Diagnosis [...] now. She is to continue as directed. [facility] Other 12-20-2022 Evaluation note* Encounter Date Diagnosis Assessment Notes Treatment Notes Treatment Clinical Notes Apr, Anxiety (ICD-10 - F41.9) [facility] Other 06-27-2022 Evaluation note* Encounter Date Diagnosis [...] on hand, she does not take often. [facility] Other 06-24-2022 Evaluation note* Encounter Date Diagnosis Assessment Notes Treatment Notes Treatment Clinical Notes Oct, Hypertension (ICD-10 - I10) [facility] Other 05-17-2022 Evaluation note* Encounter Date Diagnosis Assessment Notes Treatment Notes Treatment Clinical Notes September, Anxiety (ICD-10 - F41.9) [facility] Other 12-27-2021 Evaluation note* Encounter Date Diagnosis Assessment Notes Treatment Notes Treatment Clinical Notes Apr, Hypertension (ICD-10 - I10) Blood pressure is satisfactory, encouraged her to continue with medications as prescribed. Encouraged her to have her pressure take when she can, call with any concerns. Will see her back in 6 months. [facility] Other 07-01-2012 History general Narrative - Reported* Type Description Date Medical History hypertension Surgical History D & C miscarriage/ Dr. Padilla 2008 Surgical History D & C molar / Dr. Liliana ann 11/2011 Surgical History Tubal Ligation - Dr. Padilla 2018 [facility] Other 07-01-2012 History general Narrative - Reported* Type Description Date Medical History hypertension Medical History anxiety Surgical History D & C miscarriage/ Dr. Padilla 2008 Surgical History D & C molar / Dr. Liliana ann 11/2011 Surgical History Tubal Ligation - Dr. Padilla 2018 Hospitalization History child [facility] [employer] Other Evaluation noteNo InformationNortUniversity of [facility] [employer] Other Evaluation note* Diagnosis Onset Date Resolution Status Anxiety and depression acute Hyperlipidemia acute Hypertension acute Lymphadenopathy of right cervical region acute [facility] Work Phone: Evaluation noteNo assessment information available [facility] Work Phone: Evaluation note* Author Marla Santacruz [facility] Authored January 15, 2024 1: 20pm The above note written by ANDRES Ruvalcaba acting as human recorder, note dictated by Dr. Shen Espazra. [facility] Work Phone: Evaluation note* Diagnosis Well woman exam with routine gynecological exam Routine gynecological examination Breast cancer screening by mammogram [facility]* Diagnosis Onset Date Resolution Status Admit Date Anxiety and depression acute Fe bruary 2024 12:21pm Hypertension acute June 12:21pm [facility] Work Phone: Evaluation note* Diagnosis Menorrhagia with irregular cycle Follow-up exam Unspecified follow-up examination documented [facility] encounter [facility]* Author Jaki Calles [facility] Authored January 27, 2025 1:11pm Sooner if needed, the ER if concerns,The above note written by Jaki Calles LPN acting as human recorder, note dictated by Dr. Shen Esparza [facility] Work Phone: Evaluation note* Diagnosis Pre-op examination Menorrhagia with regular cycle Abnormal uterine bleeding (AUB) Pelvic pain documented in this encounter [facility] HealthcareReason for referral (narrative)No reason for referral [facility] Work Phone: Summary Purpose Family [...] and Reason for Visit Chief Complaint Poss [place] [facility], Expos ure To [place] [facility] 6 MONTH FOLLOW UP Reason for [...] content) DATE CREATED AUTHOR 09/04/2021 [facility] DATE CREATED AUTHOR AUTHOR'S ORGANIZ ATION 02/18/2025 [facility] EPIC DATE CREATED AUTHOR AUTHOR'S ORGANIZ ATION 02/24/2025 [facility] REASON FOR VISIT (unrecogniz ed [...] Team Status: Inactive Member Role Status Dates Sehn Esparza DO Primary Care Provide r, Attending Provider Active Start: January 15, 2024 End: January 15, 2024 Electric Meter Installer Helper Relationship Specialty Start Date End Date Shen Esparza MD [address] [phone] PCP - General 07/15/24 Electric Meter Installer Helper Relationship Specialty Start Date End Date Shen Esparza MD [address] [phone] PCP - General 07/15/24 Team Status: Inactive Member Role Status Dates Shen Esparza DO Primary Care Provide r, Attending Provider Active Start: July 19, 2024 End: July 19, 2024 Electric Meter Installer Helper Relationship Specialty Start Date End Date Shen Esparza MD [address] [phone] PCP - General 07/15/24 Team Status: Inactive Member Role Status Dates Shen Esparza DO Primary Care Provider Active Sta rt: January 08, 2025 End: January 08, 2025 Lucio Goldstein , Attending Provider Active S tart: January 08, 2025 End: January 08, 2025 Electric Meter Installer Helper Relationship Specialty Start Date End Date Shen Esparza DO PCP - General 07/15/24 Electric Meter Installer Helper Relationship Specialty Start Date End Date Kirillmartinez Shen Romeo DO PCP - General 07/15/24 Team Status: [...] January 27, 2025 End: January 27, 2025 Electric Meter Installer Helper Relationship Specialty Start Date End Date Shen Esparza DO PCP General 07/15/24 Team Status: Inactive Member Role [...] BE BASED ON THE PRIMARY CLINICAL RECORDS. [facility] [employer] provides no warranty or guarantee of the accuracy or completeness of information in this document.
--- OUTSIDE RECORDS SUMMARY | 2025-03-11 08:45 | XMS_ITS | Clinical Summary ---
Author Organization [facility] Address [address] [place] [address] Care Team Providers Care Supervisor Loading Name Role Phone KirillmartinezShen DO Primary Care Provider Allergies No known active allergies Medications citalopram (CeleXA) 20 MG tablet 07/06/2024 Active hydroCHLOROthiazid e (HYDRODiuril) 12.5 MG tablet 07/06/2024 Acti ve amLODIPine (Norvasc) 10 MG tablet 07/06/2024 Active Encounters Date Type Department Care Team Description 03/07/2025 Telephone [facility] [address] [place] [address] Tiny Alberto LPN 03/02/2025 Clinisync Result Encounter [facility] External Department Unsolicited Hima Carvalho, 03/02/2025 Clinisync Result Encounter [facility] External Department Unsolicited Hima Carvalho DO 02/23/2025 Abstract [facility] [address] [place] [address] Lucy Hirsch MA 02/16/2025 3:30 PM EDT Procedure Visit [facility] [address] [place] [address] Hima Carvalho DO Pre-op examination; Menorrhagia with regular cycle; Abnormal uterine bleeding (AUB); Pelvic pain 02/16/2025 External Result Encounter [facility] External Department Unsolicited Hima Carvalho DO 01/17/2025 1:20 PM EDT Office Visit [facility] [address] [place] [address] Hima Carvalho DO Menorrhagia with irregular cycle; Follow-up exam 01/17/2025 Bamboo flowsheet [facility] [address] [place] [address] Hima Carvalho DO 01/08/2025 Abstract [facility] [address] [place] [phone] Hima Carvalho DO from Last 3 Months Social History Tobacco Use Types Packs/Day Years Used Date Smoking Tobacco: Never Assessed Comments Unknown Sex and Gender Information Value Date Recorded Sex Assigned at Not on file Legal Sex Female 7:30 PM EDT Gender Identity Not on file Sexual Orientation Not on file Last Filed Vital Signs Vital Sign Reading Time Taken Comments Blood Pressure 118/74 01/17/2025 1:25 PM EDT Pulse - - Temperature - - Respiratory Rate - - Oxygen Saturation - - Inhaled Oxygen Concentration - - Weight 88.1 kg (194 lb 1.9 oz) 02/16/2025 3:37 P M EDT Height - - Body Mass Index - - Plan of Treatment Upcoming Encounters Date Type Department Care Team (Late st Contact Info) Description 03/24/2025 2:30 PM EDT Office Visit [facility] [address] [place] [phone] Vera Greer PA [address] [place] [address] Procedures Procedure Name Priority Date/Time Associated Diagnosis Comments ALL BASIC METABOLIC PANEL Routine 03/02/2025 9:30 AM EDT ECG 12-LEAD 03/02/2025 7:28 AM EDT ENDOMETRIAL BIOPSY Routine 02/16/2025 4: 07 PM EDT Menorrhagia with regular cycle Abnormal uterine bleeding (AUB) POCT , URINE Routine 02/16/2025 3:43 PM EDT Menorrhagia with regular cycle Abnormal uterine bleeding (AUB) Pelvic pain PATHOLOGY REQUEST FOR LAB LIU Routine 02/16/2025 12:00 AM EDT from Last 3 Months Results * (ABNORMAL) ALL BASIC METABOLIC PANEL [...] 0.55 - 1.02 mg/dL [facility] EGFR-AF POLISH >60 >=60 mL/min/1.7 3m 2 TB[facility] EGFR-NON AF POLISH >60 >=60 mL/min/1.7 3m 2 [facility] BUN CREATININE RATIO 17.8 [facility] CALCIUM 8.8 8.5 - 10.1 mg/dL [facility] 03/02/2025 9:30 AM EDT 03/02/2025 9:38 AM EDT Narrative [facility] - 03/02/2025 10:15 AM EDT Hima Carvalho DO [facility] Final Result [facility] * ECG 12-LEAD (03/02/2025 7:28 AM EDT) Anatomical Region Laterality Modality Other 03/02/2025 7:28 AM EDT Narrative 03/02/2025 11:19 AM EDT [address] [address] Electrocardiograph Report Signed Patient: ANN MARIE RODRIGUEZ MR#: [id number] : 1980 Acct:[id number] Age/Sex: 45 / F ADM Date: 03/02/25 Loc: PST Attending Dr: Hima Carvalho D.O. Ordering Physician: Hima Carvalho D.O. Date of Service: 03/02/25 Procedure(s): ECG 12 lead Accession Number(s): [id number] cc: Test Date: 2025-03-02 Pat Name: ANN MARIE RODRIGUEZ Department: Room: - Gender: Female Machine Set Up Technician: : 1980 Requested By: HIMA CARVALHO Order Number: [id number] Reading MD: DAMION CORREA Measurements Intervals [place] Rate: 91 P: 42 ND: 149 QRS: 47 QRSD: 81 T: 25 QT: 355 QTc: 437 Interpretive Statements SINUS RHYTHM No previous ECG available for comparison Electronically Signed On 03-02-2025 11:18:57 EDT by DAMION CORREA Dictated By: Damion Correa M.D. Signed By: 03/02/25 1119 DD/ 0728 TD/TT: Injection Molding Technician: Procedure Note Radiology, Radiologist, MD - 03/02/2025 [place] [address] Electrocardiograph Report Signed Patient: ANN MARIE RODRIGUEZ LMR#: [id number] : 1980Acct:[id number] Age/Sex: 45 / FADM Date: 03/02/25 Loc: PST Attending Dr: Hima Carvalho D.O. Ordering Physician: Hima Carvalho D.O. Date of Service: 03/02/25 Procedure(s): ECG 12 lead Accession Number(s): [id number] cc: Test Date: 2025-03-02 Pat Name: ANN MARIE RODRIGUEZ Department: Room: - Gender: Female Machine Set Up Technician: : 1980 Requested By: HIMA CARVALHO Order Number: [id number] Reading MD: DAMION CORREA Measurements Intervals [place] Rate: 91 P: 42 ND: 149 QRS: 47 QRSD: 81 T: 25 QT: 355 QTc: 437 Interpretive Statements SINUS RHYTHM No previous ECG available for comparison Electronically Signed On 03-02-2025 11:18:57 EDT by DAMION CORREA Dictated By: Damion Correa M.D. Signed By:03/02/25 1119 DD/ 0728 TD/TT: Injection Molding Technician: Hima Carvalho DO [facility] Final Result * Endometrial biopsy (02/16/2025 4:07 PM EDT) Narrative Mela Mcneil LPN - 02/16/2025 4:07 PM EDT Mela Mcneil LPN 02/16/2025 4:18 PM Endometrial [...] Patient tolerance: tolerated well, no immediate complications Hima Carvalho DO IN CLINIC/BEDSIDE ORDERABLES Fin al Result * POCT , urine manually resulted (02/16/2025 3:43 PM EDT) Preg Test, Ur Negative Negative Urine 02/16/2025 3:43 PM EDT Hmia Carvalho DO POINT OF CARE TEST ENTER/EDIT OR DERABLES Final Result * PATHOLOGY REQUEST FOR LAB LIU (02/16/2025 12:00 AM EDT) PATHOLOGY REQUEST FOR LAB LIU 02/23/2025 10:41 AM EDT [facility] Comment:See report. Scanned copy available in EMR. Other Topography unknown / Unknown 02/16/2025 02/17/2025 1:31 PM EDT Narrative [facility] - 02/23/2025 10:41 AM EDT EMBX us Hima Carvalho DO LAB BLOOD ORDERABLES Final Resul t [facility] [address] [place] [address], [facility] [address] [facility] [place] [address] from Last 3 Months Insurance * Guarantor: Ann Marie Rodriguez Account Type Relation to Patient Date of Phone Billing Address Personal/Family Self [address] [place] [address] [employer] MEDICA[place] Care Teams Supervisor Loading Relationship Specialty Start Date End Date Shen Esparza DO PCP - General 07/15/24
[2025-03-11 09:01] LABS: Hematocrit 25.2 % (36.0-48.0); Hemoglobin 7.9 g/dL (12.0-16.0); Immature Granulocytes Abs Auto 0.03 10^3/uL (0.00-0.03); Immature Granulocytes Pct Auto 0.4 % (0.0-0.5); Lymphocytes Absolute Auto 2.0 10^3/uL (1.2-3.8); Mean Corpuscular HGB Conc 31.3 g/dL (29.9-35.2); Mean Corpuscular Hemoglobin 25.6 pg (26.7-34.0); Mean Corpuscular Volume 81.8 fL (81.0-99.0); Platelet Count 222 10^3/uL (150-450); Red Blood Count 3.08 10^6/uL (4.20-5.40); White Blood Count 7.1 10^3/uL (4.0-11.0)
--- NOTE | 2025-03-11 10:45 | PM.ONB ---
Brief Operative Note Date of procedure: 03/11/25 Pre-op diagnosis general: menorrhagia, acute blood loss anemia Post-op diagnosis: same as pre-op Procedure: NAME OF PROCEDURE: [ D&c hysteroscopy with myosure] PROCEDURE: The patient was taken back to the Operating Room where she was prepped and draped in normal sterile fashion after being placed under general anesthesia without difficulty. She was also placed in the dorsal lithotomy position. A weighted speculum was placed in the patient?s vagina. The anterior lip of the cervix was identified and grasped with a single tooth tenaculum. The patient?s uterus was then sounded roughly to [? 8] cm. The patient was then gently dilated using Hegar dilators. The hysteroscope was passed through the patient?s cervix into the uterus. Both ostia were identified. fluffy appearing endometrium. No gross evidence of malignancy, no gross evidence of polyps or fibroids. The myosure apparatus was placed through the scope, The myosure was engaged and endometrial curretting were removed along with endometrial polyp, The hysteroscope was then removed from the uterus. The endometrial curettings were sent out to pathology. The single tooth tenaculum was then removed from the patient's anterior lip of the cervix where excellent hemostasis was noted. All instruments were removed from the patient?s vagina. The patient tolerated the procedure well. Sponge, lap and needle counts were correct times two. The patient was taken to the Recovery Room in stable condition.Room in stable condition. Anesthesia: MAC Surgeon: Beni Carvalho Estimated blood loss (mL): 5 Pathology: other (endometrial currettings) Condition: stable Disposition: floor Urinary Catheter Management Urinary Catheter Management Straight: Cath placed during this visit: no
== END 2025-03-11 13:10 | disposition home or self-care (01) ==
LOC: SURGOUT 08:42
PROVIDERS: Visit Provider Obstetrics & Gynecology
PROC: (CPT 952; principal; 2025-03-11 10:00)
DX: N92.0 Excessive and frequent menstruation with regular cycle (principal); D62 Acute posthemorrhagic anemia; N93.9 Abnormal uterine and vaginal bleeding, unspecified; N85.01 Benign endometrial hyperplasia; Z98.51 Tubal ligation status; I10 Essential (primary) hypertension; F17.200 Nicotine dependence, unspecified, uncomplicated; F41.9 Anxiety disorder, unspecified; K21.9 Gastro-esophageal reflux disease without esophagitis
CPT/HCPCS: 58558; 36415; 36430; 84702; 85025; 86850; 86900; 86901; 86923; 88305; J1885; J2250; J2405; J2704; J3010; P9016

== ENCOUNTER 2025-04-14 12:02 | Observation (INO) | payer MEDICAID, SELFPAY ==
--- OUTSIDE RECORDS SUMMARY | 2017-06-26 04:46 | XMS_ITS | Continuity of Care Document ---
Author Organization [facility] Address [address] [place] [address] Phone Care Team Providers Care [employer] Sergeant Name Role Phone Tello Mcneal MD Unavailable Unavailable Allergies, Adverse Reactions, Alerts Substance Reaction Status Criticality No Known Allergies Active No Inform ation Medications Medication Instructions Dosage Effective Dates (start - stop) Status Comments lisinopril 40 mg tablet take 1 tablet by oral route every day 40 MG - Active Procedures Procedure Date OFFICE/OUTPATIENT VISIT, EST Contraceptive pills for bc URINE TEST OFFICE/OUTPATIENT VISIT, EST LIQUID BASED PAP REFLEX HPV FROM ASCUS, 20 & OVER PREV VISIT, EST, AGE 18-39 SPECIMEN HANDLING THIN PREP PAP W/REFLEX TO ASCUS 010 URINE TEST TB INTRADERMAL TEST TB INTRADERMAL TEST TB INTRADERMAL TEST OFFICE/OUTPATIENT VISIT, EST THIN PREP PAP W/REFLEX TO ASCUS 009 URINE TEST PREV VISIT, EST, AGE 18-39 Condoms Contraceptive pills for bc THIN PREP PAP W/REFLEX TO ASCUS 008 URINALYSIS, NONAUTO W/SCOPE URINE TEST Advance Directives Directive Yes / No Effective Date File Name No Information Encounters Encounter Description Practice Location Reason(s) For Visit Diagnoses Date Provider Providers Copied on Encounter [facility], [address], [place], [id number], [place] tel:[phone] [facility] No Information Fredis Javed. [address], [place], [id number], [place]. tel:[phone] [facility], [address], [place], [id number], [place] tel:[phone] [facility] BP check (chief complaint) HTNBody mass index (BMI) 30.0-30.9, adult Fredis Javed. [address], [place], [id number], [place]. tel:[phone] [facility], [address] [place] [address], [id number], [place] tel:[phone] [facility] est care (chief complaint)h igh bp (chief complaint) HTN Fredis Javed. [address], [place], [id number], [place]. tel:[phone] OFFICE/OUTPAT IENT VISIT, [facility], [address], [place], [id number], [place] tel:[phone] [facility] No Information Maximo Dyer. [address], [place], [id number], [place]. tel:[phone] OFFICE/OUTPAT IENT VISIT, [facility], [address], [place], [id number], [place] tel:[phone] [facility] No Information Gopi Mixon. [address], [place], [id number]. tel:[phone] PREV VISIT, EST, AGE 18-39 [facility], [address], [place], [id number], [place] tel:[phone] [facility] No Information Gopi Mixon. [address], [place], [id number]. tel:[phone] [facility], [address], [place], [id number], [place] tel:[phone] [facility] No Information Coleman Machado. [address], [place], [id number], [place]. tel:[phone] [facility], [address], [place], [id number], [place] tel:[phone] [facility] No Information Coleman Machado. [address], [place], [id number], [place]. tel:[phone] [facility], [address], [place], [id number], [place] tel:[phone] [facility] No Information Coleman Machado. [address], [place], [id number], [place]. tel:[phone] OFFICE/OUTPAT IENT VISIT, EST [facility], [address], [place], [id number], [place] tel:[phone] [facility] No Information No Information PREV VISIT, EST, AGE 18-39 [facility], [address], [place], [id number], [place] tel:[phone] [facility] No Information Gopi Mixon. [address], [place], [id number]. tel:[phone] Family History Family Member Type Diagnosis Age At Onset Sister Problem (finding) hypertension Father Problem (finding) hypertension Father Problem (finding) alcoholism Mother Problem (finding) hypertension Problem (finding) Family history of Cance r, brain Payers Payer name Insurance type Covered democrat ID Authoriza tion(s) Self Pay Indigent 09 Social History Type Description Quantity Date Captured Comments Alcohol Use Details Unknown Caffeine Use Details Unknown Tobacco Use Status Smoking Status No Information Sex Female Sexual Orientation Straight or heterosexual Gender Identity Female Chief Complaint And Reason For Visit No Information Reason For Referral Reason For Referral No Information Plan Of Treatment Date Type Action Status Goal ECG. Due on due Goal Diabetes screening. Due on F due Goal Diabetes screening. Due on J due Goal ECG. Due on due Goal Dietary management education , guidance, and counseling completed Goal Diabetes screening. Due on D due Goal ECG. Due on due Goal Urinalysis due Goal Tobacco cessation counseling completed Goal Tobacco cessation counseling completed History Of Present Illness Encounter Date Complaint History Of Prese nt Illness BP check Patient here for BP check. Was started on lisinopril at last visit. States it is going well. 150/99 Bp today. Pravin weaver RN est care Pt here to est c are and has seen Dr. Esparza in the past but does not have insurance currently. Pt does not take any meds and denies having any concerns today. Shannan high bp Pt states was at [facility] and noticed she had high bp, also states has a little bit of anxiety so she figured it was related. KBRN Functional Status Date Functional Assessmen t No Information Instructions Date Instruction Additional Infor mation Dietary management e ducation, guidance, and counseling Related to Body mass index (BMI) 30.0-30.9, adult Giving encouragement to exercise Related to Body mass index (BMI) 30.0-30.9, adult Assessments Type Assessment Date No Information Patient Care Teams Name Effective Dates (start - stop) Status Members No Information
--- OUTSIDE RECORDS SUMMARY | 2025-04-13 19:24 | XMS_ITS | Continuity of Care Document ---
Author Organization [facility] Address [address] [place] [address] Phone Care Team Providers Care [employer] Name Role Phone Isaias Shen QUACH Primary Care Provider [phone] Shen Esparza DO Attending Provider [phone] Beni Carvalho DO Attending Provider [phone] Care Teams Patient Care Team Team Status: Active Member Role/Relationship Status Dates Shen Esparza DO Primary Care Provider Active Visit Care Team Team Status: Inactive Member Role/Relationship Status Dates Shen Esparza DO Primary Care Provider Active Sta rt: January 25, 2025 End: January 25warner Esparza DOAttjalen ProviderActiveStart: January 25, 2025 End: January 25, 2025 Visit Care Team Team Status: Inactive Member Role/Relationship Status Dates Shen Esparza DO Primary Care Provider Active Sta rt: January 27, 2025 End: January 27warner Esparza DOAttending ProviderActiveStart: January 27, 2025 End: January 27, 2025 Visit Care Team Team Status: Inactive Member Role/Relationship Status Dates Beni Carvalho DO Attending Provider Active Start : February 16, 2025 End: February 16Mona Crow Care ProviderActiveStart: February 16, 2025 End: February 16, 2025 Visit Care Team Team Status: Inactive Member Role/Relationship Status Dates Beni Carvalho DO Attending Provider Active Start : March 11, 2025 End: March 11, 2025 Visit Care Team Team Status: Inactive Member Role/Relationship Status Dates Shen Esparza DO Primary Care Provider Active Sta rt: April 12, 2025 End: April 12warner Esparza DOAttending ProviderActiveStart: April 12, 2025 End: April 12, 2025 Patient Care Team Team Status: Inactive Member Role/Relationship Status Dates Shen Esparza DO Primary Care Provider Active Sta rt: April 13, 2025 End: April 13warner Esparza DOAttending ProviderActiveStart: April 13, 2025 End: April 13, 2025 Chief Complaint and Reason for Visit Chief Complaint Admit Date E55.9 F41.9 F32.A I10 E78.5 January 6:37am 6 month f/u January 27, 2025 12:47pm menorrhagia February 16, 2025 3:33pm Unknown March 11, 2025 1 0:24am back pain about 2 weeks April 12 2:39pm Reason for Visit Admit Date Anxiety and depression January 27 12:47pm Hyperlipidemia January 27, 2025 12:47pm Hypertension January 27, 2025 12:47pm Heavy menstrual period April 12 2:39pm Lumbar back pain April 12, 2025 2:39pm Allergies, Adverse Reactions, Alerts Allergen Type Severity Reaction Last Updated Verified Status No Known Allergies Allergy Unknown April 12, 2025 4:26pmYesActive Social History Smoking Status Status Start Date End Date Date of Observa tion Smokes tobacco daily (finding) April 12, 2025 3:25pm Observation Status Observation Response Date of Response Legal Sex Female (finding) Sex Assigned At BirthFemaleSeptember 1979 Family History Relationship Condition Age at Onset Recorded Date/T mirella father Alcoholism Unknown Family history of mental disorderUnknownMalignant neoplasmUnknownFamily history of malignant neoplasm of prostateUnknowngrandparentDeceasedUnknownmother HypertensionUnknownsisterHypertensionUnknown Problems Active Problems Problem Diagnosis/Recorded Date Onset Date Stat us Nicotine dependence January 15, 2024 12:09pm Unknown Active Lymphadenopathy of right cervical region June 1:51pm Unknown Active Hyperlipidemia July 17, 2023 1:50pm Unknown Active Anxiety and depression July 17, 2023 1:50pm Unkn own Active Hypertension July 16, 2023 4:41pm Unknown A ctive Vitamin D deficiency January 15, 2024 11:58am Unknown Active Asthma July 17, 2023 2:16pm Unknown A ctive Medications Medication Status Dose Units Route Directions Qty Days Refills S tart Date Stop Date End Date Reason(s) Instructions Adherence Amlodipine 10 mg tablet Active 10 MG PO Daily 90 3April 05, 2024 2:50pmHypertension Essential (primary) hypertensionFreeTextSi tablet Orally Once a day; Note: Source Status: Taking; Provider: Isaias GomezknownCitalopram 20 mg tablet Mnnnfizlquhc74TWTDJyiod653Avjnrife 11th, 2024 2:50pmSeptember 2024 12:22pm Hypertension Essential (primary) hypertensionFreeTextSi tablet Orally Once a day; Note: Source Status: Taking; Refills: 1; Qty: 90 Tablet; Provider: Isaias Romeo Hydrochlorothiazide 12.5 mg jqxilhXoqqbjabhtxc04.5MGPOEvery 48 nrwyv194Otboabqk2023 2:50pmFebruary 2024 12:53pmFreeTextSi tablet Orally every other day; Note: Source Status: Not-Taking\PRN; Provider: Isaias Gotti PIrbesartan 150 mg sddfiiSyivlq378OYGVIbtbl559Ljudbten 11th, 2024 2:51pmHypertension Essential (primary) hypertensionFreeTextSi tablet Orally Once a day; Note: Source Status: Taking; Provider: Isaias DurannAcyclovir 800 mg tablet Bfognejmammj069DAXEEjhmy daily as needed for cold vmkuz301Jdwrsaq 2024 12:33pmJanuary 2024 9:05amFreeTextSi tablet Orally prn Twice a day; Note: Source Status: Not-Taking\PRNprn; Refills: 5; Provider: Isaias Romeo Acyclovir 800 mg rpulsvQtdkqo310FZBK.COMPLEX as needed for cold srnwl315Vplkfsm 2024 9:72km606 mg orally 2 tabs twice a day PRN;UnknownAcyclovir 800 mg tabletDiscontinuedMGPOFebruary 2023 12:00amFebruary 2023 1:46pm FreeTextSi tablet Orally prn Twice a day; Note: Source Status: Not- Taking\PRNprn; Refills: 5; Provider: Isaias Gotti PIrbesartan 150 mg tablet Tmdxcvpikjjf1NCRKVDoqsmQcdmwxte 2023 12:00amFebruary 2023 1:46pm FreeTextSi tablet Orally Once a day; Note: Source Status: Taking; Provider: Isaias Gotti PHydrochlorothiazide 12.5 mg rrtfcxGjydehnvnpkb1GSYTFKvziz 48 hours July 16, 2023 12:00amFebruary 2023 1:46pmFreeTextSi tablet Orally every other day; Note: Source Status: Not-Taking\PRN; Provider: Isaias tesfaye PAlbuterol Sulfate (Proair Hfa) 90 mcg/actuation HFA aerosol inhaler Slvocxlqoqeu7BIJNAUBUYXWNIFXsvyp 6 hoursJuly 16, 2023 12:00amFebruary 2023 2:18pmFreeTextSi puffs as needed Inhalation every 6 hrs; Note: Source Status: Not-Taking\PRN; Provider: Isaias Gotti PAmlodipine 10 mg tablet Hziwolwqykxp3LRRHBHjqhsGlskdndk 2023 12:00amFebruary 2023 1:46pm FreeTextSi tablet Orally Once a day; Note: Source Status: Taking; Provider: Isaias Gotti PCitalopram 20 mg gaipsnNvuljqctcoht3GMBPNVoqxcMavbdykh 2023 12:00amFebruary 2023 1:46pmFreeTextSi tablet Orally Once a day; Note: Source Status: Taking; Refills: 1; Qty: 90 Tablet; Provider: Isaias Romeo Acyclovir 800 mg spjoqyTqcasgfxevsr321YIHFTpaootei 2023 1:45pmJanuary 2024 12:33pmFreeTextSi tablet Orally prn Twice a day; Note: Source Status: Not-Taking\PRNprn; Refills: 5; Provider: Isaias Gotti PAmlodipine 10 mg cbticxSpitozgbubvj10KNEQCwhjxSgzrwhxs 2023 1:46pmFebruary 2023 2:18pmFreeTextSi tablet Orally Once a day; Note: Source Status: Taking; Provider: Isaias Gotti PCitalopram 20 mg hgachsJksdwjfzciqs32GWAIDpwrqTavfmpio 2023 1:46pmFebruary 2023 2:18pmFreeTextSi tablet Orally Once a day; Note: Source Status: Taking; Refills: 1; Qty: 90 Tablet; Provider: Isaias Gotti PHydrochlorothiazide 12.5 mg ljmzlpBcoyrilgcmgu50.5MGPOEvery 48 hours July 17, 2023 1:46pmAugust 2023 12:33pmFreeTextSi tablet Orally every other day; Note: Source Status: Not-Taking\PRN; Provider: Isaias Romeo Irbesartan 150 mg tcebqcRzyjonqrlglf874GGRYYlmksWtlavyzk 2023 1:46pm July 17, 2023 2:18pmFreeTextSi tablet Orally Once a day; Note: Source Status: Taking; Provider: Isaias Gotti PLorazepam (Ativan) 0.5 mg tablet Discontinued0.5MGPODaily as needed for anxiety/ panic vwmftsw53926Oxpeordp 2023 12:00amFebruary 2023 2:24pmAnxiety and depression Anxiety disorder, unspecified Depression, unspecifiedCephalexin 500 mg udiimxbShitkwxwhyrh486AWKHYvqyt times tnfmz64685Bredgxbj 2023 12:00amAugust 2023 12:04pmLymphadenopathy of right cervical region Localized enlarged lymph nodesAmlodipine 10 mg wfcroeZuuhorspismh63YASTElbsh090 July 17, 2023 2:14pmNovember 2023 2:51pmHypertension Essential (primary) hypertensionFreeTextSi tablet Orally Once a day; Note: Source Status: Taking; Provider: Isaias Gotti PIrbesartan 150 mg tablet Qbiaksteynbr795LJSLFeogh815Hqdygkxs 2023 2:15pmNov2023 2:51pm Hypertension Essential (primary) hypertensionFreeTextSi tablet Orally Once a day; Note: Source Status: Taking; Provider: Isaias Gotti PCitalopram 20 mg tabletDiscontinued 61CATIYnzcp313Coohdmch 2023 2:15pmNov2023 2:51pmHypertension Essential (primary) hypertensionFreeTextSi tablet Orally Once a day; Note: Source Status: Taking; Refills: 1; Qty: 90 Tablet; Provider: Isaias Romeo Albuterol Sulfate (Proair Hfa) 90 mcg/actuation HFA aerosol zsxgfhtWniqmn6BTAC INHALATIONEvery 6 hours6.72February 2023 2:16pmAsthma Unspecified asthma, uncomplicatedFreeTextSi puffs as needed Inhalation every 6 hrs; Note: Source Status: Not-Taking\PRN; Provider: Isaias Lawrence Lorazepam (Ativan) 0.5 mg tabletActive0.5MGPODaily as needed for anxiety/ panic otquuel23636Qtmquekp 2023 2:24pmAnxiety and depression Anxiety disorder, unspecified Depression, unspecifiedUnknownHydrochlorothiazide 12.5 mg lybalsWezxqxamywqo18.5 MGPOEvery 48 vzzzg407Suruxj 2023 12:33pmNov2023 2:51pm FreeTextSi tablet Orally every other day; Note: Source Status: Not- Taking\PRN; Provider: Isaias Gotti PHydrochlorothiazide 12.5 mg ysijpqYglqfh58.5MG POdaily as neededFebruary 2024 12:53pmUnknownCitalopram 20 mg tabletActive 15VCOGGfnrf172Urvsrxyym 4th, 2025 12:06pmHypertension Essential (primary) hypertensionUnknownTizanidine (Zanaflex) 4 mg capsuleActive4 MGPODaily at bedtime as needed for muscle outioalirx119Rpiktssp 18th, 2025 12:00amUnknown Immunizations Immunization Event Date Not Given Reason Dose Number Dust Operator Lot Number Reason(s) Given Vaccine Information Statement (VIS) Detail Administration Location Trivalent Influenza Vaccine September 18, 2018 Patient R efused Relevant Diagnostic Tests and/or Laboratory Data Laboratory Results Test Collection Date/Time Result Date/Time Result Interpretation Reference Range Result Comment Performing Site Corrected White Blood Count January 25, 2025 5:38am January 25, 2025 12:55pm 6.4 10*3/uL 3.8[facility]11[facility] [id number] [address] [facility] [address]Xkggtlmcc White Blood CountNovember 2024 6:55amNovember 2024 2:37pm5.9 10*3/uL3.8-11.6FMer[facility] [id number] [address] [place] [address] 39502Rslvfroifaz WBC CountSept2024 5:38amSeptember 2024 12:55pm6.4 10*3/uL3.8-11.6FMer[facility] [id number] [address] [place] [address] 55214Ifwmdewojim WBC CountNov2024 6:55amNovember 2024 2:37pm5.9 10*3/uL3.8-11.6FMer[facility] [id number] [address] [facility] 47525Lgp Blood CountSept2024 5:38amSeptember 2024 12:55pm3.86 10*6/uL3.60-5.00[facility] [id number] [address] [place] [address] 13561Kpj Blood CountNovember 2024 6:55amNovember 2024 2:37pm3.20 10*6/uLBelow low normal3.60-5.00[facility] [id number] [address] [facility] 65163RiobdrybfxFeklyrdil 2024 5:38amSeptember 2024 12:55pm 12.0 g/dL11.8-15.4FMer[facility] [id number] [address] [place] [address] 37681YafwnrwyhnQcujlrks 2024 6:55amNovember 2024 2:37pm 7.5 g/dLBelow low .8-15.4FMer[facility] [id number] [address] [facility] 80193ZmubsvagdaJmwyadcou 2024 5:38amSeptember 2024 12:55pm 34.9 %34.0-46.4FMercy [facility] [id number] [address] [facility] 74572PjmvpkeowrCpjbcbzd 2024 6:55amNovember 2024 2:37pm 23.6 %Below low .0-46.4FMer[facility] [id number] [address] [facility] 90889Mdxm Corpuscular VolumeSeptember 2024 5:38amSeptember 2024 12:55pm90.4 zE21-562NffdalfkePeoples Hospital [facility]tr [id number] [address] [facility] 99999Fsgy Corpuscular VolumeNovember 2024 6:55amNovember 2024 2:37pm73.7 fLBelow low -014NnwqkxymbPeoples Hospital Ctr [id number] [address] [facility] 54779Zfqk Corpuscular HemoglobinSeptember 2024 5:38amSeptember 2024 12:55pm31.0 pg24.7-34.3FMercy Health [facility] [id number] [address] [facility] 63102Faqi Corpuscular HemoglobinNovember 2024 6:55amNovember 2024 2:37pm23.5 pgBelow low esrfwn77.7-34.3FMercy [facility] [id number] [address] [facility] 22031Zwhx Corpuscular Hemoglobin ConcentSeptember 2024 5:38am January 25, 2025 12:55pm34.3 g/dL32.0-35.0[facility] [id number] [address] [facility] 37108Nxla Corpuscular Hemoglobin ConcentNovember 2024 6:55am April 13, 2025 2:37pm31.8 g/dLBelow low cwabdf69.0-35.0[facility] [id number] [address] [facility] 53393Qyz Cell Distribution WidthSeptember 2024 5:38amSeptember 2024 12:55pm12.0 %11.9-15.3FMercy [facility] [id number] [address] [facility] 35549Lku Cell Distribution WidthNovember 2024 6:55amNovember 2024 2:37pm16.8 %Above high gssjfy10.9-15.3FMercy [facility] [id number] [address] [facility] 59490Akyhfvze CountSeptember 2024 5:38amSeptember 2024 12:06sx338 10*3/fJ028-557CbsleokhkPeoples Hospital Ctr [id number] [address] [facility] 88185Raawundh CountNovember 2024 6:55amNovember 2024 2:87xc598 10*3/cM428-981ApmegctcnPeoples Hospital Ctr [id number] [address] [facility] 01935Dxub Platelet VolumeSeptember 2024 5:38amSeptember 2024 12:55pm7.5 fL6.3-10.7FMercy [facility] [id number] [address] [facility] 01079Tvjo Platelet VolumeNovember 2024 6:55amNovember 2024 2:37pm7.2 fL6.3-10.7FMercy Health [facility] [id number] [address] [facility] 344[address]Yipaawhciht (%) (Auto)January 25, 2025 5:38amSeptember 2024 12:55pm55.3 %.[facility] [id number] [address] [facility] 68515Thgkhvumdsc (%) (Auto)April 13, 2025 6:55amNovember 2024 2:37pm52.9 %.[facility] [id number] [address] [facility] 51269Tduuxcwxfig (%) (Auto)January 25, 2025 5:38amSeptember 2024 12:55pm35.1 %.[facility] [id number] [address] [facility] 11897Xsqyjgheuey (%) (Auto)April 13, 2025 6:55amNovember 2024 2:37pm37.5 %.[facility] [id number] [address] [facility] 83828Clqavtekl (%) (Auto)January 25, 2025 5:38amSeptember 2024 12:55pm6.1 %.[facility] [id number] [address] [facility] [place] [address]Bynayeqfi (%) (Auto)April 13, 2025 6:55amNovember 2024 2:37pm6.2 %.[facility] [id number] [address] [facility] 32208Jpacwpddwzd (%) (Auto)January 25, 2025 5:38amSeptember 2024 12:55pm2.6 %.[facility] [id number] [address] [facility] 02148Afuwdqejhvk (%) (Auto)April 13, 2025 6:55amNovember 2024 2:37pm2.3 %.[facility] [id number] [address] [facility] 31119Opmoorxbk (%) (Auto)January 25, 2025 5:38amSeptember 2024 12:55pm0.9 %.[facility] [id number] [address] [facility] 65758Cbqtxygbj (%) (Auto)April 13, 2025 6:55amNovember 2024 2:37pm1.1 %.[facility] [id number] [address] [facility] [place] [address]Isfcewsvk RBC Relative Count (auto)January 25, 2025 5:38am January 25, 2025 12:55pm0.2 /100{WBC}0-0.5FMer[facility] [id number] [address] [facility] [place] [address]Auuvghtgf RBC Relative Count (auto)April 13, 2025 6:55am April 13, 2025 2:37pm0.1 /100{WBC}0-0.5FMer[facility] [id number] [address] [facility] 32603Uqwozgidewl # (Auto)January 25, 2025 5:38amSeptember 2024 12:55pm3.6 10*3/uL1.8-7.7FMer[facility] [id number] [address] [facility] 907[address]Ytjzezgnqsk # (Auto)April 13, 2025 6:55amNovember 2024 2:37pm3.1 10*3/uL1.8-7.7FMer[facility] [id number] [address] [facility] 716[address]Dvusbkwdrks # (Auto)January 25, 2025 5:38amSeptember 2024 12:55pm2.3 10*3/uL1.00-4.8[facility] [id number] [address] [facility] 03152Ycknhkleoql # (Auto)April 13, 2025 6:55amNovember 2024 2:37pm2.2 10*3/uL1.00-4.8[facility] [id number] [address] [facility] 07643Brzwhamja # (Auto)January 25, 2025 5:38amSeptember 2024 12:55pm0.4 10*3/uL0.0-0.8[facility] [id number] [address] [place] [address] 60244Hrugozubf # (Auto)April 13, 2025 6:55amNovember 2024 2:37pm0.4 10*3/uL0.0-0.8[facility] [id number] [address] [facility] 01669Zikrderokot # (Auto)January 25, 2025 5:38amSeptember 2024 12:55pm0.2 10*3/uL0.0-0.45[facility] [id number] [address] [place] [address] 74320Bseqaifzveb # (Auto)April 13, 2025 6:55amNovember 2024 2:37pm0.1 10*3/uL0.0-0.45[facility] [id number] [address] [facility] 9[address]Porcqdlhs # (Auto)January 25, 2025 5:38amSeptember 2024 12:55pm0.1 10*3/uL0.0-0.2FMer[facility] [id number] [address] [facility] 01245Mgfqyphcm # (Auto)April 13, 2025 6:55amNovember 2024 2:37pm0.1 10*3/uL0.0-0.2FMer[facility] [id number] [address] [facility] 813[address]Mzjpjyc LevelSeptember 2024 5:38amSeptember 2024 1:25pm89 mg/tH25-076IFJ recommended reference rangeRandom Glucose Reference Range is dependent on time and content of last meal. Glucose of more than 200 mg/dL in a nonstressed, ambulatory subject supports the diagnosisof Diabetes Mellitus.[facility] [id number] [address] [facility] 08691Wcmwdif LevelNovember 2024 6:55amNovember 2024 2:41pm97 mg/rE11-258UWS recommended reference rangeRandom Glucose Reference Range is dependent on time and content of last meal. Glucose of more than 200 mg/dL in a nonstressed, ambulatory subject supports the diagnosisof Diabetes Mellitus.[facility] [id number] [address] [facility] 21361Cnqxr Urea NitrogenSeptember 2024 5:38amSeptember 2024 1:25pm8 mg/dL7-[facility] [id number] [address] [facility] 70545Gfgac Urea NitrogenNovember 2024 6:55amNovember 2024 2:41pm9 mg/dL7-[facility] [id number] [address] [facility] 27969WjembedyocGdmlklklz 2024 5:38amSeptember 2024 1:25pm 0.49 mg/dLBelow low normal0.60-1.20[facility] [id number] [address] [facility] 21381TzkjbuotxxDglbwyur 2024 6:55amNovemb2024 2:41pm 0.44 mg/dLBelow low normal0.60-1.20[facility] [id number] [address] [facility] 11152Neambibwx GFR (CKD-EPI)January 25, 2025 5:38amSeptember 2024 1:25pm> 60.0 mL/MinPeoples Hospital Ctr [id number] [address] [facility] 64176Ggqjcewnx GFR (CKD-EPI)April 13, 2025 6:55amNove2024 2:41pm> 60.0 mL/MinPeoples Hospital Ctr [id number] [address] [place] [address]3070Sodium LevelSeptember 2024 5:38amSeptember 2024 1:73aq746 mmol/M322-733JmedlufjkPeoples Hospital Ctr [id number] [address] [place] 9203070Sodium LevelNovember 2024 6:55amNovember 2024 2:89pg566 mmol/D896-420WxhhaxsnxPeoples Hospital Ctr [id number] [address] [facility] 16084Hgyewqziu LevelSeptember 2024 5:38amSeptember 2024 1:25pm3.9 mmol/L3.5-5.1FMercy [facility] [id number] [address] [facility] 83372Jwygkilrg LevelNovember 2024 6:55amNovember 2024 2:41pm4.6 mmol/L3.5-5.1FMercy [facility] [id number] [address] [facility] 76706Pbtjmzeu LevelSeptember 2024 5:38amSeptember 2024 1:88xy526 mmol/S82-153NqlikttvnPeoples Hospital Ctr [id number] [address] [facility] 46104Kqpsrowu LevelNovember 2024 6:55amNovember 2024 2:69ec482 mmol/LAbove high jmkyft83-160GqrvvadkbPeoples Hospital Ctr [id number] [address] [facility] 27279Cjcwfg Dioxide LevelSeptember 2024 5:38amSeptember 2024 1:25pm26.8 mmol/L21.0-31.0[facility] [id number] [address] [facility] 28220Ctomfc Dioxide LevelNovember 2024 6:55amNovember 2024 2:41pm26.0 mmol/L21.0-31.0[facility] [id number] [address] [facility] 14882Byosz GapSeptember 2024 5:38amSeptember 2024 1:25pm 12.1 mEq/L6.0-15.0[facility] [id number] [address] [facility] 795[address]Ylblg GapNovember 2024 6:55amNovember 2024 2:41pm 10.6 mEq/L6.0-15.0[facility] [id number] [address] [facility] 78407Cpynhsb LevelSeptember 2024 5:38amSeptember 2024 1:25pm8.8 mg/dL8.6-10.3FMer[facility] [id number] [address] [facility] 97239Ngfbgia LevelNovember 2024 6:55amNovember 2024 2:41pm8.7 mg/dL8.6-10.3FMer[facility] [id number] [address] [facility] 03356Aeogq ProteinSeptember 2024 5:38amSeptember 2024 1:25pm6.8 g/dL6.4-8.9[facility] [id number] [address] [facility] 658[address]Ayofe ProteinNovember 2024 6:55amNovember 2024 2:41pm6.0 g/dLBelow low normal6.4-8.9[facility] [id number] [address] [facility] 70541UpnxdblKdsbweihp 2024 5:38amSeptember 2024 1:25pm4.1 g/dL3.5-5.7FMer[facility] [id number] [address] [facility] 25152OjdmepzPnsbjhfw 2024 6:55amNovember 2024 2:41pm3.7 g/dL3.5-5.7FMer[facility] [id number] [address] [facility] 23002EkthjpypTyubaztjj 2024 5:38amSeptember 2024 1:25pm2.7 g/dLPeoples Hospital [facility]tr [id number] [address] [facility] 55586CrvjhfolMfdexbvn 2024 6:55amNovember 2024 2:41pm2.3 g/dLPeoples Hospital Ctr [id number] [address] [facility] 81434Rjhpxee/Globulin RatioSeptember 2024 5:38amSeptember 2024 1:25pm1.5FMercy [facility] [id number] [address] [place] [address] 44876Aaqmoju/Globulin RatioNovember 2024 6:55amNovember 2024 2:41pm1.6FMercy [facility] [id number] [address] [place] [address] 90937Pxvgt BilirubinSeptember 2024 5:38amSeptember 2024 1:25pm0.4 mg/dL0.3-1.0[facility] [id number] [address] [facility] 54446Ubapf BilirubinNovember 2024 6:55amNovember 2024 2:41pm0.2 mg/dLBelow low normal0.3-1.0[facility] [id number] [address] [place] [address] 02995Inlnjsxbt Amino Transf (AST/SGOT)January 25, 2025 5:38am January 25, 2025 1:25pm23 U/U47-94DkjjlcpopPeoples Hospital Ctr [id number] [address] [facility] 15643Hefkfmali Amino Transf (AST/SGOT)April 13, 2025 6:55am April 13, 2025 2:41pm20 U/R19-97CsgyonnysPeoples Hospital Ctr [id number] [address] [facility] 18013Zyrkayi Aminotransferase (ALT/SGPT)January 25, 2025 5:38am January 25, 2025 1:25pm13 U/L7-52[facility] [id number] [address] [facility] 29162Ndtuydd Aminotransferase (ALT/SGPT)April 13, 2025 6:55am April 13, 2025 2:41pm12 U/L7-52[facility] [id number] [address] [facility] 039[address]Tawwpdnv PhosphataseSeptember 2024 5:38amSeptember 2024 1:82en989 U/E52-687YclhcfuenPeoples Hospital Ctr [id number] [address] [facility] 43377Fvkkniew PhosphataseNov2024 6:55amNovember 2024 2:41pm81 U/Z87-178SmduyodgrPeoples Hospital Ctr [id number] [address] [facility] 59829Thydbdapvwb LevelSeptember 2024 5:38amSeptember 2024 1:48cc596 mg/fS181-804Tarx less than 200 mg/dl low riskChol 201-239 mg/dl borderline riskChol 240 mg/dl and greater highriskPeoples Hospital Ctr [id number] [address] [facility] 42296VJI CholesterolSeptember 2024 5:38amSeptember 2024 1:25pm52 mg/pU12-55KSP CHOL ATP-III CLASSIFICATION Cardiovascular RiskHDL > or equal to 60 mg/dL LOWHDL < 40 mg/dL [facility] [id number] [address] [facility] 847[address]Nmmezaacbthsr LevelSeptember 2024 5:38amSeptember 2024 1:08ce851 mg/dLAbove high normal0-149TRIG ATP III CLASSIFICATIONTRIG less than 150 mg/dL NormalTRIG 150-199 mg/dL Borderline highTRIG 200-500 mg/dL High TRIG greater than 500 mg/dL Very highStandard traceable to the Center for Disease Conrtrol and Prevention (CDC) test method.[facility] [id number] [address] [facility] 936[address]SIV Cholesterol, CalculatedSept2024 5:38amSept2024 1:25pm60 mg/dL0-100LDL ATP III CLASSIFICATIONLDL less than 100 mg/dL OptimalLDL 100-129 mg/dL Near or above drxocyqRLF034-633 mg/dL Borderline highLDL 160-189 mg/dL HighLDL greater than 189 mg/dL Very highPeoples Hospital Ctr [id number] [address] [facility] 31763YQAB CholesterolSept2024 5:38amSept2024 1:25pm52 mg/dLPeoples Hospital [facility] [id number] [address] [facility] 36185Gcxshyoshug/HDL RatioSept2024 5:38amSept2024 1:25pm3.2<5.0[facility] [id number] [address] [facility] 56330Avtklse Stimulating Hormone 3rd GenSept2024 5:38am January 25, 2025 1:42pm2.46 u[iU]/mL0.45-5.33[facility] [id number] [address] [facility] 4917336-Keuudtx Vitamin D TotalSept2024 5:38amSept2024 1:52pm15.1 ng/mLBelow low oqwhtx64-891AEKYERM D STATUS 25(OH)VITAMIN D RANGE (ng/mL) Deficient <20 Insufficient 20 to <51Gbxuqztmpl67 to 100Reference: Ela MF,Margarita NC, Graham ACUÑA, et al. Evaluation,treatment, and prevention of vitamin D deficiency; an Endocrine Society clinical practice guideline. JCEM. 2010; 96(7):1911-30.[facility] [id number] [address] [facility] [address]Svzkwovc Creatinine Clearance (ChemSept2024 5:38am January 25, 2025 1:25pmN/AF[facility] [id number] [address] [facility] [address]Ytngzust Creatinine Clearance (ChemNovember 2024 6:55am April 13, 2025 2:41pmN/AF[facility] [id number] [address] [facility] [address]Joowqwhhro E9lYqtjepsvy 2024 5:38amSeptember 2024 1:50pm4.7 %4.3-5.6Increased risk for diabetes: 5.7 - 6.4diabetes: >6.4glycemic control for adults with diabetes: <7.0[facility] [id number] [address] [facility] [address]Gbyoodlpa Average GlucoseSeptember 2024 5:38amSeptember 2024 1:50pm88 mg/dLPeoples Hospital Ctr [id number] [address] [facility] [address]Yryuqpcnartaq Pathology TestSeptember 2024 11:00pmOctober 2024 9:41amSee commentSee report. Scanned copy available in EMR.[facility] [id number] [address] [facility] [address] Vital Signs Vital Reading Result Reference Range Collection Date/Time Height 64 [in_i] January 27, 2025 12:64jzLsmjff03.72 kgSeptember 2024 12:05pmHeart Rate89 /yxo21-364Nhscsbmeb 2024 12:05pmRespiratory rate18 /dar66-06Vrafcxxte 4th, 2025 12:05pmOxygen saturation by Pulse dbfokzzy63 %95-100September 2024 12:05pmBP Gmihzfpk035 mm[Hg]100-140September 2024 12:05pmBP Bdkkavcwm91 mm[Hg]60-100September 2024 12:05pmBMI (Body Mass Index)32.4 kg/d1Agsdocvcc 2024 12:73lzXuexgd60 [in_i]April 12, 2025 3:70deFtyslv40.99 kgNovember 2024 3:27pmHeart Rate88 /sag01-655Cjuneeah 2024 3:27pmRespiratory rate18 /orw17-47Uopyevms 2024 3:27pmOxygen saturation by Pulse tjpsqyqh99 %95-100Nov2024 3:27pmBP Zkccomnp508 mm[Hg]100-140Nov2024 3:27pmBP Zdhacxeyk26 mm[Hg]60-100Nov2024 3:27pmBMI (Body Mass Index)33.3 kg/u4Ttgujfwg2024 3:27pm Advance Directives Advance Directive Response Recorded Date/ Time Advance Directives No June 10:59am Insurance Providers Guarantor Rosalba Allison Posadas Address [address] [place] [address]Nhzdrsc Info.Home Phone: Payer Group Member ID Coverage Type Subscriber Relationship to Subscriber Effective Date Expiration Date Vijay CRUZ Id: [id number] J Posadas Id: [id number] [address] [place] [address] Home Phone: [employer] [place] [employer] Third [id number] L Posadas Id: [id number] [address] [place] [address] Home Phone: Email: [email or web address] Id: [id number] L Posadas Id: [id number] [address] [place] [address] Home Phone: Email: [email or web address] Encounter Location(s) Arrival/Admit Date Discharge/Departure Date Discharge/Departure Disposition Provider(s) Departed Clinical -[facility] January 25, 2025 6:37am January 25, 2025 6:38am Discharged to home care or self care (routine discharge) Ousmane Kern DO Departed Physician/ Provider Office Visit -[facility] January 27, 2025 12:47pm January 27, 2025 1:32pm Discharged to home care or self care (routine discharge) Ousmane Kern DO Departed Referred -Lab [facility] February 16, 2025 3:33pm February 16, 2025 3:34pm Discharged to home care or self care (routine discharge) Beni Carvalho Departed Referred -LAB [facility] March 11, 2025 10:24am March 11, 2025 10:25am Discharged to home care or self care (routine discharge) Beni Carvalho Departed Physician/ Provider Office Visit -[facility] April 12, 2025 2:39pm April 12, 2025 4:09pm Discharged to home care or self care (routine discharge) Ousmane Kern DO Departed Clinical -[facility] April 13, 2025 6:54am April 13, 2025 6:55am Discharged to home care or self care (routine discharge) Ousmane Kern DO Recent Diagnosis Onset Date Admit Date Anxiety and depression Unknown January 27, 2025 12:47pm Hyperlipidemia Unknown January 27, 025 12:47pm Hypertension Unknown January 27 025 12:47pm Heavy menstrual period Unknown April 12, 2025 2:39pm Lumbar back pain Unknown April 12, 2025 2:39pm Assessments Author Jaki Calles [facility] 2024 12:11pmSooner if needed, the ER if concerns,The above note written by Jaki Calels LPN acting as human recorder, note dictated by Dr. Shen Esparza Author Cheryl Stewart [facility] 2024 3:33pmThe above note written by Cheryl CAMPOS acting as human recorder, note dictated by Dr. Shen Esparza. Plan of Treatment Author Shen Esparza [facility] 2024 2:28pmBlood pressure appears to be well controlled with [...] minutes with her during this office visit. Author Cheryl Stewart [facility] 20[facility] 4:28pmPatient voiced some slight pain on the left lumbar spine. Patient does have good strength and good sensation of bilateral legs. She did not voice pain upon leg lifts. I did offer and recommend a Toradol 60mg shot today. Administered. Prescription provided for Zanaflex to take at bedtime. We will follow up in one month. Patient has been following with Dr. Carvalho and is scheduled for a hysterectomy. Patient did have a blood transfusion after her D&C back in February due to low hemoglobin. I recommend the patient have her CBC rechecked this week due to the patient skin appearing pale. Future Tests Future scheduled test information is unavailable Pending Tests Pending diagnostic test information is unavailable Future Visits Future appointment information is unavailable Future Procedures Future procedure information is unavailable Future Medications Future medication information is unavailable Patient Instructions Instruction Admit Date Low back pain in adults April 12 025 2:39pm
[2025-04-14] VITALS (10 sets, daily range): BP systolic 141–160; BP diastolic 80–99; PULSE 77–102; TEMP 36.5–36.8; O2SAT 98–100; BMI 15.8; BMI 32.9
[2025-04-14 13:44] LABS: Immature Granulocytes Abs Auto 0.03 10^3/uL (0.00-0.03); Immature Granulocytes Pct Auto 0.4 % (0.0-0.5); Lymphocytes Absolute Auto 2.4 10^3/uL (1.2-3.8); Mean Corpuscular HGB Conc 30.9 g/dL (29.9-35.2); Mean Corpuscular Hemoglobin 23.3 pg (26.7-34.0); Mean Corpuscular Volume 75.3 fL (81.0-99.0); Platelet Count 248 10^3/uL (150-450); Red Blood Count 2.96 10^6/uL (4.20-5.40); White Blood Count 8.1 10^3/uL (4.0-11.0)
[2025-04-14 13:50] LABS: Hematocrit 22.3 % (36.0-48.0); Hemoglobin 6.9 g/dL (12.0-16.0)
[2025-04-14 13:53] LABS: Anion Gap 13.6; Blood Urea Nitrogen 10.0 mg/dL (7.0-18.0); Calcium 8.6 mg/dL (8.5-10.1); Carbon Dioxide 24.8 mmol/L (21.0-32.0); Chloride 103 mmol/L (98-107); Estimated GFR (African America >60 (>=60 mL/min/1.73m^2); Estimated GFR (Non-African Ame >60 (>=60 mL/min/1.73m^2); Glucose 93 mg/dL (74-106); Potassium 3.4 mmol/L (3.5-5.1); Sodium 138 mmol/L (136-145)
--- NOTE | 2025-04-14 14:00 | PC.NURSE ---
patient alert and oriented. slight pallor in color. patient states that she was sent over by Dr. coello for low hemoglobin and was told she needed a transfusion. states she has been bleeding since october off and on. recent dand c last month. states unknown origin of bleeding and is scheduled to just have hysterectomy next month. patient reports she is not very symptomatic. slight dizziness once yesterday and fatigue.
--- NOTE | 2025-04-14 14:04 | ED.GENADUL1 ---
HPI HPI - General Adult General Chief complaint: Recheck/Abnormal Lab/Rx Stated complaint: ABNORMAL LABS Time Seen by Provider: 04/14/25 13:15 Source: patient Mode of arrival: walk-in Limitations: no limitations History of Present Illness HPI narrative: Patient is a 45-year-old female that presents to the emergency department and states that her PCP/Dr. Carvalho ([employer]) sent her here for blood transfusion. She notes that she has had vaginal bleeding since October of this year and had a in office procedure with Dr. Carvalho in January and then a D&C on March 11. After the D&C she also required a transfusion of 1 unit. She states she did stop bleeding for a few weeks after this but a few weeks ago started again with heavy bleeding and clots. She does have a hysterectomy scheduled with Dr. Carvalho at the beginning of June currently. She went to her PCP yesterday as she had hurt her back and he had mentioned that she had looked pale and ended up doing some labs. She was called today that her hemoglobin was 7.5 and she needed a blood transfusion. She does report that she has had some lightheadedness when standing from sitting in the past few days. She denies dizziness, heart palpitation, or shortness of breath. Related Data Home Medications ?Medication ?Instructions ?Recorded ?Confirmed amlodipine 10 mg tablet 10 mg PO QNOON 01/08/25 03/11/25 irbesartan 150 mg tablet 150 mg PO QNOON 01/08/25 03/11/25 acyclovir 800 mg tablet 800 mg PO BID PRN cold sores 03/02/25 03/11/25 albuterol sulfate 90 mcg/actuation 2 inh inhalation Q6H PRN shortness 03/02/25 03/11/25 aerosol inhaler of breath or wheezing cholecalciferol (vitamin D3) 50 50 mcg PO DAILY 03/02/25 03/11/25 mcg (2,000 unit) capsule citalopram 20 mg tablet (Celexa) 20 mg PO QNOON 03/02/25 03/11/25 hydrochlorothiazide 12.5 mg capsule 12.5 mg PO DAILY 03/02/25 03/11/25 lorazepam 0.5 mg tablet (Ativan) 0.5 mg PO BID PRN anxiety 03/02/25 03/11/25 Allergies Allergy/AdvReac Type Severity Reaction Status Date / Time No Known Drug Allergies Allergy Verified 04/14/25 12:11 Review of Systems ROS Status of ROS 10 or more systems reviewed and unremarkable except as noted in history and below [facility] Medical History (Updated 04/14/25 @ 14:59 by SULY Avendano) HSV infection ?B00.9 - Herpesviral infection, unspecified (ICD-10) Panic attacks ?F41.0 - Panic disorder [episodic paroxysmal anxiety] (ICD-10) Anxiety ?F41.9 - Anxiety disorder, unspecified (ICD-10) Abnormal uterine bleeding ?N93.9 - Abnormal uterine and vaginal bleeding, unspecified (ICD-10) Pelvic pain ?R10.20 - (ICD-10) Menorrhagia ?N92.0 - Excessive and frequent menstruation with regular cycle (ICD-10) Heartburn ?R12 - Heartburn (ICD-10) HTN (hypertension) ?I10 - Essential (primary) hypertension (ICD-10) Surgical History (Updated 03/02/25 @ 09:21 by Apoorva Dozier NP) History of dilation and curettage ?Z98.890 - Other specified postprocedural states (ICD-10) History of dilation and curettage ?Z98.890 - Other specified postprocedural states (ICD-10) H/O tubal ligation ?Z98.51 - Tubal ligation status (ICD-10) Family History (Updated 03/02/25 @ 09:21 by Apoorva Dozier NP) Other Family history of cancer Family history of diabetes mellitus Family history of hypertension Family history of renal failure Family history of stroke Social History (Updated 03/02/25 @ 09:18 by Apoorva Dozier NP) Within the past year, how often did you have a drink containing alcohol: 4 or more times a week Within the past year, how many standard drinks containing alcohol did you have on a typical day: 3 or 4 Smoking status: Current every day smoker What tobacco products do you use: cigarettes Cigarettes per day: 10 Years smoked: 20 Smoking pack-years: 10.00 Non-prescribed substance use: denies use 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 No rash. Head: Normocephalic, atraumatic. Neck: Supple, non-tender. Eye: Pupils are equal, round and EOMI. No scleral icterus. Ears, Nose, Mouth, and Throat: No nasal mucosal hypertrophy. Oral mucosa is moist, no posterior oropharynx erythema, uvula is mid-line Cardiovascular: Regular Rate and Rhythm without murmur, gallop or rub. Respiratory: No accessory muscle use or respiratory distress. Lungs are clear to auscultation, no wheezing, rales or rhonchi Chest Wall: no tenderness Musculoskeletal: Full ROM of all extremities, no calf or popliteal tenderness GI: Abdomen is soft, non-distended, non tender to palpation. No masses appreciated. No rebound, guarding, or rigidity noted. Neurological: A&O x4. No cranial nerve dysfunction observed. No truncal ataxia. Moves all extremities. Sensation intact. Psychiatric: Cooperative and interactive. Normal mood and affect. Constitutional Vital Signs, click to edit/add: Last Vital Signs Temp 98.1 F 04/14/25 12:05 Pulse 102 H 04/14/25 12:05 Resp 16 04/14/25 12:05 BP 141/85 04/14/25 12:05 Pulse Ox 100 04/14/25 12:05 O2 Del Method Room Air 04/14/25 12:05 Course Vital Signs Vital signs: Vital Signs Temperature 98.1 F 04/14/25 12:05 Pulse Rate 102 H 04/14/25 12:05 Respiratory Rate 16 04/14/25 12:05 Blood Pressure 141/85 04/14/25 12:05 Pulse Oximetry 100 04/14/25 12:05 Oxygen Delivery Method Room Air 04/14/25 12:05 Temperature 98.1 F 04/14/25 12:05 Pulse Rate 102 H 04/14/25 12:05 Respiratory Rate 16 04/14/25 12:05 Blood Pressure 141/85 04/14/25 12:05 Pulse Oximetry 100 04/14/25 12:05 Oxygen Delivery Method Room Air 04/14/25 12:05 Medical Decision Making MDM Narrative Medical decision making narrative: 45-year-old female presented to ED by recommendation of her PCP/Dr. Carvalho for a blood transfusion for hemoglobin of 7.5 after her PCP had noticed yesterday she looked pale and she told him that she had started bleeding again after her D&C on March 11. She has been vaginally bleeding since October, stopped for a few weeks after her D&C in February, then started bleeding heavily again few weeks ago. She does have a hysterectomy scheduled with Dr. Carvalho on June 27. IV placed. CBC obtained here and hemoglobin is 6.9. I did call and speak with Dr. Carvalho who would like her admitted to the hospitalist to receive 2 units of packed red blood cells and started on Megace twice daily until she stops bleeding, and then daily. I did call and speak with Dr. Banda who accepts patient. Vital signs stable during ED course. Patient transferred to floor for further treatment with blood transfusion and monitoring. Differential Diagnosis Differential Diagnosis: Anemia Lab Data Lab results reviewed: Yes I reviewed the patient's lab results Labs: Lab Results 04/14/25 Range/Units 13:39 WBC 8.1 (4.0-11.0) 10^3/uL RBC 2.96 L (4.20-5.40) 10^6/uL Hgb 6.9 L* (12.0-16.0) g/dL Hct 22.3 L* (36.0-48.0) % MCV 75.3 L (81.0-99.0) fL MCH 23.3 L (26.7-34.0) pg MCHC 30.9 (29.9-35.2) g/dL RDW 14.8 (11.0-15.0) % Plt Count 248 (150-450) 10^3/uL MPV 8.7 L (9.5-13.5) fL Neut % (Auto) 63.8 (43.0-75.0) % Lymph % (Auto) 29.8 (20.5-60.0) % [place] % (Auto) 4.3 (1.7-12.0) % Eos % (Auto) 1.1 (0.9-7.0) % Baso % (Auto) 0.6 (0.2-2.0) % Neut # (Auto) 5.2 (1.4-6.5) 10^3/uL Lymph # (Auto) 2.4 (1.2-3.8) 10^3/uL [place] # (Auto) 0.4 (0.3-0.8) 10^3/uL Eos # (Auto) 0.1 (0.0-0.7) 10^3/uL Baso # (Auto) 0.1 (0.0-0.1) 10^3/uL Abs Immat Gran (auto) 0.03 (0.00-0.03) 10^3/uL Imm/Tot Granulo (auto) 0.4 (0.0-0.5) % Sodium 138 (136-145) mmol/L Potassium 3.4 L (3.5-5.1) mmol/L Chloride 103 (98-107) mmol/L Carbon Dioxide 24.8 (21.0-32.0) mmol/L Anion Gap 13.6 BUN 10.0 (7.0-18.0) mg/dL Creatinine 0.52 L (0.55-1.02) mg/dL Est GFR ( Amer) >60 (>=60 mL/min/1.73m^2) Est GFR (Non-Af Amer) >60 (>=60 mL/min/1.73m^2) BUN/Creatinine Ratio 19.2 Glucose 93 (74-106) mg/dL Calcium 8.6 (8.5-10.1) mg/dL Serum HCG, Qual Negative (NEGATIVE) Discharge Plan Discharge Chief Complaint: Recheck/Abnormal Lab/Rx Clinical Impression: Anemia requiring transfusions Patient Disposition: Admitted as Observation Time of Disposition Decision: 14:59 Condition: Good
--- OUTSIDE RECORDS SUMMARY | 2025-04-14 14:41 | XMS_ITS | Continuity of Care Document ---
Author Organization [facility] Address [address] [place] [address] Phone Care Team Providers Care C4 Planner Name Role Phone Shen Esparza DO Primary Care Provider Shen Esparza DO Attending Provider Beni [...] March 11, 2025 End: March 11, 2025 Chief Complaint and Reason for Visit Chief Complaint Admit Date E55.9 F41.9 F32.A I10 E78.5 January 6:37am 6 month f/u January 27, 2025 12:47pm menorrhagia February 16, 2025 3:33pm Unknown March 11, 2025 1 0:24am Reason for Visit Admit Date Anxiety and depression January 27 12:47pm Hyperlipidemia January 27, 2025 12:47pm Hypertension January 27, 2025 12:47pm Allergies, Adverse Reactions, Alerts Allergen Type Severity Reaction Last Updated Verified Status No Known Allergies Allergy Unknown January 27, 2025 11:57amYesActive Social History Smoking Status Status Start Date End Date Date of Observa tion Smokes tobacco daily (finding) January 15, 2024 12:27pm Observation Status Observation Response Date of Response Legal Sex Female (finding) Sex Assigned At BirthFemaleSept1979 Family History Relationship Condition Age at Onset [...] tablet Active 10 MG PO Daily 90 2023 2:50pmHypertension Essential (primary) hypertensionFreeTextSi tablet Orally Once a day; Note: Source Status: Taking; Provider: Isaias DurannCitalopram 20 mg tablet Vvvvnplgazyr79QGNPSmfdr972Wdhtnojd 11th, 2024 2:50pmSept2024 12:22pm Hypertension Essential (primary) hypertensionFreeTextSi tablet Orally Once a day; Note: Source Status: Taking; Refills: 1; Qty: 90 Tablet; Provider: Isaias Romeo Hydrochlorothiazide 12.5 mg mmpbthSheqzkjwjmsi25.5MGPOEvery 48 zcccy003Eirmculy2023 2:50pmFebruary 2024 12:53pmFreeTextSi tablet Orally every other day; Note: Source Status: Not-Taking\PRN; Provider: Isaias Gotti PIrbesartan 150 mg utodjgMqtcnd851JMHFMueyl088Btzfboyh 11th, 2024 2:51pmHypertension Essential (primary) hypertensionFreeTextSi tablet Orally Once a day; Note: Source Status: Taking; Provider: Isaias Gotti PUnknownAcyclovir 800 mg tablet Tjbwoffrbtau121UERKXyhel daily as needed for cold whnlp992Dnimlyq2024 12:33pmJanuary 2024 9:05amFreeTextSi tablet Orally prn Twice a day; Note: Source Status: Not-Taking\PRNprn; Refills: 5; Provider: Isaias Romeo Acyclovir 800 mg vkcxoiUvghav870HOLW.COMPLEX as needed for cold camoo950Mlwuxez2024 9:64ha653 mg orally 2 tabs twice a day PRN;UnknownAcyclovir 800 mg tabletDiscontinuedMGPOJuly 16, 2023 12:00amFebruary 2023 1:46pm FreeTextSi tablet Orally prn Twice a day; Note: Source Status: Not- Taking\PRNprn; Refills: 5; Provider: Isaias Colinbesartan 150 mg tablet Mjvltisejhuc7FXAWXLogxiVlumxemk 21st, 2024 12:00amFebruary 2023 1:46pm FreeTextSi tablet Orally Once a day; Note: Source Status: Taking; Provider: Isaias Gotti PHydrochlorothiazide 12.5 mg hkrwlxYagbccuvluwx2ZFDHJRdzlj 48 hours July 16, 2023 12:00amFebruary 2023 1:46pmFreeTextSi tablet Orally every other day; Note: Source Status: Not-Taking\PRN; Provider: Kuns Br mera PAlbuterol Sulfate (Proair Hfa) 90 mcg/actuation HFA aerosol inhaler Gnbcuuclqihc8YOXSRSZZCORIBQZimfr 6 hoursFebruary 2023 12:00amFebruary 2023 2:18pmFreeTextSi puffs as needed Inhalation every 6 hrs; Note: Source Status: Not-Taking\PRN; Provider: Isaias Gotti PAmlodipine 10 mg tablet Knfxyjnweprz0NKVOEUtsclXkcixjft 2023 12:00amFebruary 2023 1:46pm FreeTextSi tablet Orally Once a day; Note: Source Status: Taking; Provider: Isaias Gotti PCitalopram 20 mg xuwwsiJmtpgsgjoqct6RIFUMWytpzDaoogwnl 2023 12:00amFebruary 2023 1:46pmFreeTextSi tablet Orally Once a day; Note: Source Status: Taking; Refills: 1; Qty: 90 Tablet; Provider: Isaias Romeo Acyclovir 800 mg qncagnShjtykefjbpo102VIJDSjchwdsg 2023 1:45pmJanuary 2024 12:33pmFreeTextSi tablet Orally prn Twice a day; Note: Source Status: Not-Taking\PRNprn; Refills: 5; Provider: Isaias Gotti PAmlodipine 10 mg avdryxYafdpksqvoug54ERTZZtecxNrlknttp 2023 1:46pmFebruary 2023 2:18pmFreeTextSi tablet Orally Once a day; Note: Source Status: Taking; Provider: Isaias Gotti PCitalopram 20 mg euxsqhKatalxgsdczq83QUCIRyuiqVdjrhmxd 2023 1:46pmFebruary 2023 2:18pmFreeTextSi tablet Orally Once a day; Note: Source Status: Taking; Refills: 1; Qty: 90 Tablet; Provider: Isaias Gotti PHydrochlorothiazide 12.5 mg rhughmWgickygxaqit15.5MGPOEvery 48 hours July 17, 2023 1:46pmAugust 2023 12:33pmFreeTextSi tablet Orally every other day; Note: Source Status: Not-Taking\PRN; Provider: Isaias Romeo Irbesartan 150 mg qpfqtpHnrlhkgvuicw343ZUHKIujinDolhwqtt 2023 1:46pm July 17, 2023 2:18pmFreeTextSi tablet Orally Once a day; Note: Source Status: Taking; Provider: Isaias Gotti PLorazepam (Ativan) 0.5 mg tablet Discontinued0.5MGPODaily as needed for anxiety/ panic rmejsmt07541Rqrxlfig 2023 12:00amFebruary 2023 2:24pmAnxiety and depression Anxiety disorder, unspecified Depression, unspecifiedCephalexin 500 mg hxmokgqGulfcwrxjwzd375ZIFWThzcm times ymqob19593Uylqrbdl 2023 12:00amAugust 2023 12:04pmLymphadenopathy of right cervical region Localized enlarged lymph nodesAmlodipine 10 mg njuzfqVwlzzwojxuav86DCHOXxsma958 July 17, 2023 2:14pmApril 05, 2024 2:51pmHypertension Essential (primary) hypertensionFreeTextSi tablet Orally Once a day; Note: Source Status: Taking; Provider: Isaias Gotti PIrbesartan 150 mg tablet Djmpoimmgijp089REHMWrfbh056Qktwgmsr 2023 2:15pmApril 05, 2024 2:51pm Hypertension Essential (primary) hypertensionFreeTextSi tablet Orally Once a day; Note: Source Status: Taking; Provider: Isaias Gotti PCitalopram 20 mg tabletDiscontinued 52DLZIImnyr133Mjrrrmbr 2023 2[facility]pm[facility] 20[facility] 2:51pmHypertension Essential (primary) hypertensionFreeTextSi tablet Orally Once a day; Note: Source Status: Taking; Refills: 1; Qty: 90 Tablet; Provider: Isaias Romeo Albuterol Sulfate (Proair Hfa) 90 mcg/actuation HFA aerosol lrtxkcfCvnste6OTNM INHALATIONEvery 6 hours6.72February 2023 2:16pmAsthma Unspecified asthma, uncomplicatedFreeTextSi puffs as needed Inhalation every 6 hrs; Note: Source Status: Not-Taking\PRN; Provider: Isaias Lawrence Lorazepam (Ativan) 0.5 mg tabletActive0.5MGPODaily as needed for anxiety/ panic jdszspo83626Ailyaycp 2023 2:24pmAnxiety and depression Anxiety disorder, unspecified Depression, unspecifiedUnknownHydrochlorothiazide 12.5 mg qpbaqpMhhbzbbolmoo79.5 MGPOEvery 48 qhsei536Ewrzkz 2023 12:33pmNovember 2023 2:51pm FreeTextSi tablet Orally every other day; Note: Source Status: Not- Taking\PRN; Provider: Isaias Gotti PHydrochlorothiazide 12.5 mg nlkunyAwmpge37.5MG POdaily as neededFebruary 2024 12:53pmUnknownCitalopram 20 mg tabletActive 80YNIVAutjl824Lxrotpikk 2024 12:06pmHypertension Essential (primary) hypertensionUnknown Immunizations Immunization Event Date Not Given Reason Dose Number Granulator Operator Lot Number Reason(s) Given Vaccine Information Statement (VIS) Detail Administration Location Trivalent Influenza Vaccine September 18, 2018 Patient R efused Relevant Diagnostic Tests and/or Laboratory Data Laboratory Results Test Collection Date/Time Result Date/Time Result Interpretation Reference Range Result Comment Performing Site Corrected White Blood Count January 25, 2025 5:38am January 25, 2025 12:55pm 6.4 10*3/uL 3.8-11.6[facility] [id number] [address] [facility] [address]Vuvedbmrglk WBC CountSept2024 5:38amSept2024 12:55pm6.4 10*3/uL3.8-11.6[facility] [id number] [address] [facility] [address]Twh Blood CountSept2024 5:38amSept2024 12:55pm3.86 10*6/uL3.60-5.00[facility] [id number] [address] [facility] [address]EgsnuwzzcqHwytvxnda 2nd, 2025 5:38amSept2024 12:55pm 12.0 g/dL11.8-15.4[facility] [id number] [address] [facility] [address]UbqphphkbyQvdumipqf 2024 5:38amSeptember 2024 12:55pm 34.9 %34.0-46.4[facility] [id number] [address] [facility] [address]79[address]Xdhp Corpuscular VolumeSeptember 2024 5:38amSeptember 2024 12:55pm90.4 iU06-367GotfqkeuuSelect [facility] [id number] [address] [facility] [address]Osfz Corpuscular HemoglobinSeptember 2024 5:38amSeptember 2024 12:55pm31.0 pg24.7-34.3[facility] [id number] [address] [facility] [address]Uvrr Corpuscular Hemoglobin ConcentSeptember 2024 5:38am January 25, 2025 12:55pm34.3 g/dL32.0-35.0[facility] [id number] [address] [facility] [address]Ywm Cell Distribution WidthSeptember 2024 5:38amSeptember 2024 12:55pm12.0 %11.9-15.3[facility] [id number] [address] [facility] [address]Uurojauk CountSeptember 2024 5:38amSeptember 2024 12:31en419 10*3/uZ215-208JchzifqelSelect [facility] [id number] [address] [facility] [address]Xfbo Platelet VolumeSeptember 2024 5:38amSeptember 2024 12:55pm7.5 fL6.3-10.7[facility] [id number] [address] [facility] [address]Veoustfpuwg (%) (Auto)January 25, 2025 5:38amSeptember 2024 12:55pm55.3 %.[facility] [id number] [address] [facility] [address]Hvecrvsoqom (%) (Auto)January 25, 2025 5:38amSeptember 2024 12:55pm35.1 %.[facility] [id number] [address] [facility] [address]Morxjkfqs (%) (Auto)January 25, 2025 5:38amSept2024 12:55pm6.1 %.[facility] [id number] [address] [facility] 12862Wfpifygxims (%) (Auto)January 25, 2025 5:38amSept2024 12:55pm2.6 %.[facility] [id number] [address] [facility] [address]Kxhbruviw (%) (Auto)January 25, 2025 5:38amSept2024 12:55pm0.9 %.[facility] [id number] [address] [facility] [address]Dfgnahfhn RBC Relative Count (auto)January 25, 2025 5:38am January 25, 2025 12:55pm0.2 /100{WBC}0-0.5[facility] [id number] [address] [place] [address]88[address]Neutrophils # (Auto)January 25, 2025 5:38amSept2024 12:55pm3.6 10*3/uL1.8-7.7[facility] [id number] [address] [place] [address]8870Lymphocytes # (Auto)January 25, 2025 5:38amSept2024 12:55pm2.3 10*3/uL1.00-4.8[facility] [id number] [address] [facility] 34228Vscekrrcg # (Auto)January 25, 2025 5:38amSept2024 12:55pm0.4 10*3/uL0.0-0.8[facility] [id number] [address] [place] [address]8870Eosinophils # (Auto)January 25, 2025 5:38amSept2024 12:55pm0.2 10*3/uL0.0-0.45[facility] [id number] [address] [place], [place] [address]2370Basophils # (Auto)January 25, 2025 5:38amSeptember 2024 12:55pm0.1 10*3/uL0.0-0.2[facility] [id number] [address] [place] [id number] LevelSeptember 2024 5:38amSeptember 2024 1:25pm89 mg/nO37-072QPR recommended reference rangeRandom Glucose Reference Range is dependent on time and content of last meal. Glucose of more than 200 mg/dL in a nonstressed, ambulatory subject supports the diagnosisof Diabetes Mellitus.[facility] [id number] [address] [place] [id number] Urea NitrogenSeptember 2024 5:38amSeptember 2024 1:25pm8 mg/dL7-25[facility] [id number] [address] [place] [address]8870CreatinineSeptember 2024 5:38amSeptember 2024 1:25pm 0.49 mg/dLBelow low normal0.60-1.20[facility] [id number] [address] [place] [id number] GFR (CKD-EPI)January 25, 2025 5:38amSeptember 2024 1:25pm> 60.0 mL/MinSelect Medical Specialty Hospital [facility] [id number] [address] [place] [address]70Sodium LevelSeptember 2024 5:38amSeptember 2024 1:20lg822 mmol/I684-251RwtknvutjSelect [facility]ty [facility] [id number] [address] [place] [address]8870Potassium LevelSeptember 2024 5:38amSeptember 2024 1:25pm3.9 mmol/L3.5-5.1[facility] [id number] [address] [place] [id number] LevelSeptember 2024 5:38amSeptember 2024 1:79pk168 mmol/G25-577NsrnmbgliSelect Medical Specialty [facility] [id number] [address] [place] [id number] Dioxide LevelSeptember 2024 5:38amSeptember 2024 1:25pm26.8 mmol/L21.0-31.0[facility] [id number] [address] [facility] [address]Hqtom GapSeptember 2024 5:38amSeptember 2024 1:25pm 12.1 mEq/L6.0-15.0[facility] [id number] [address] [facility] [address]Hhnbzyr LevelSeptember 2024 5:38amSeptember 2024 1:25pm8.8 mg/dL8.6-10.3[facility] [id number] [address] [facility] [address]23[address]Ffjlc ProteinSeptember 2024 5:38amSeptember 2024 1:25pm6.8 g/dL6.4-8.9[facility] [id number] [address] [facility] 216[address]OgnwggkRslyebcdo 2024 5:38amSeptember 2024 1:25pm4.1 g/dL3.5-5.7[facility] [id number] [address] [facility] 02757ZgxjnmmxMwpjkcxaw 2024 5:38amSeptember 2024 1:25pm2.7 g/dLSelect [facility] Specialty [facility] [id number] [address] [facility] [address]Bewsndw/Globulin RatioSeptember 2024 5:38amSeptember 2024 1:25pm1.5[facility] [id number] [address] [place] [address]Rdund BilirubinSeptember 2024 5:38amSeptember 2024 1:25pm0.4 mg/dL0.3-1.0[facility] [id number] [address] [facility] [address]67[address]Wccavbniw Amino Transf (AST/SGOT)January 25, 2025 5:38am January 25, 2025 1:25pm23 U/P85-12OhjcvrwigSelect Medical Specialty Hospital [facility] [id number] [address] [facility] 68751Ldtxnvv Aminotransferase (ALT/SGPT)January 25, 2025 5:38am January 25, 2025 1:25pm13 U/L7-52[facility] [id number] [address] [facility] 34[address]Pvzyxvxz PhosphataseSeptember 2024 5:38amSeptember 2024 1:62mw359 U/X79-352DmwlfrneoSelect Medical Specialty Hospital [facility] [id number] [address] [facility] [address]Pghwypgiget LevelSeptember 2024 5:38amSeptember 2024 1:86vf041 mg/hY136-644Tdvk less than 200 mg/dl low riskChol 201-239 mg/dl borderline riskChol 240 mg/dl and greater high riskSelect Medical Specialty Hospital - [facility] [id number] [address] [facility] [address]KVC CholesterolSeptember 2024 5:38amSeptember 2024 1:25pm52 mg/vM03-72ANZ CHOL ATP-III CLASSIFICATION Cardiovascular RiskHDL > or equal to 60 mg/dL LOWHDL < 40 mg/dL HIGHSelect Medical Specialty Hospital - [facility]tr [id number] [address] [facility] [address]Arcwudmhmquct LevelSeptember 2024 5:38amSeptember 2024 1:18jf453 mg/dLAbove high normal0-149TRIG ATP III CLASSIFICATIONTRIG less than 150 mg/dL NormalTRIG 150-199 mg/dL Borderline highTRIG 200-500 mg/dL High TRIG greater than 500 mg/dL Very highStandard traceable to the Center for Disease Conrtrol and Prevention (CDC) test method.[facility] [id number] [address] [facility] 206[address]UCK Cholesterol, CalculatedSeptember 2024 5:38amSeptember 2024 1:25pm60 mg/dL0-100LDL ATP III CLASSIFICATIONLDL less than 100 mg/dL OptimalLDL 100-129 mg/dL Near or above tyocjsxMXO949-937 mg/dL Borderline highLDL 160-189 mg/dL HighLDL greater than 189 mg/dL Very highSelect Medical Specialty [facility] [id number] [address] [facility] 80258XJUO CholesterolSeptember 2024 5:38amSeptember 2024 1:25pm52 mg/dLSelect [facility] Specialty [facility] [id number] [address] [facility] [address]Vewwiqeuvew/HDL RatioSeptember 2024 5:38amSeptember 2024 1:25pm3.2<5.0[facility] [id number] [address] [facility] 205[address]Cckguzd Stimulating Hormone 3rd GenSept2024 5:38am January 25, 2025 1:42pm2.46 u[iU]/mL0.45-5.33[facility] [id number] [address] [facility] 8142066-Cklavum Vitamin D TotalSeptember 2024 5:38amSeptember 2024 1:52pm15.1 ng/mLBelow low rqfequ64-772RQKXOYP D STATUS 25(OH)VITAMIN D RANGE (ng/mL) Deficient <20 Insufficient 20 to <36Bahfehxote96 to 100Reference: Ela MF,Margarita NC, Graham ACUÑA, et al. Evaluation,treatment, and prevention of vitamin D deficiency; an Endocrine Society clinical practice guideline. JCEM. 2010; 96(7):1911-30.[facility] [id number] [address] [facility] [address]Bqaguops Creatinine Clearance (ChemSeptember 2024 5:38am January 25, 2025 1:25pmN/[facility] [id number] [address] [facility] 928[address]Iscwzaxerx A4xTzwhcttls 2024 5:38amSept2024 1:50pm4.7 %4.3-5.6Increased risk for diabetes: 5.7 - 6.4diabetes: >6.4glycemic control for adults with diabetes: <7.0[facility] [id number] [address] [facility] 87693Glonhtmnq Average GlucoseSeptember 2024 5:38amSept2024 1:50pm88 mg/dLSelect Medical Specialty Hospital [facility] [id number] [address] [facility] [address]Nghpripzhzucw Pathology TestSeptember 2024 11:00pmOctober 2024 9:41amSee commentSee report. Scanned copy available in EMR.[facility] [id number] [address] [place] [address] Vital Signs Vital Reading Result Reference Range Collection Date/Time Height 64 [in_i] January 27, 2025 12:33llUqwlao66.72 kgSept2024 12:05pmHeart Rate89 /inw26-704Fsixzlhqu 4th, 2025 12:05pmRespiratory rate18 /svg25-88Yollgsaji 4th, 2025 12:05pmOxygen saturation by Pulse cnoorhop75 %95-100Sept2024 12:05pmBP Rnrjuazf748 mm[Hg]100-140Sept2024 12:05pmBP Eoitctply40 mm[Hg]60-100Sept2024 12:05pmBMI (Body Mass Index)32.4 kg/e7Cwmqytwqc2024 12:05pm Advance Directives Advance Directive Response Recorded Date/ Time Advance Directives No June 10:59am Insurance Providers Guarantor Rosalba Ibrahimapp Address [address] [facility] [address]Udgnprs Info.Home Phone: Payer Group Member ID Coverage Type Subscriber Relationship to Subscriber Effective Date Expiration Date Vijay CRUZ Id: [id number] J Posadas Id: [id number] [address] [facility] [address] Home Phone: C[employer] [place] [employer] Third [id number] L Posadas Id: [id number] [address] [facility] [address] Home Phone: Email: [email or web address] Id: [id number] L Posadas Id: [id number] [address] [facility] [address] Home Phone: Email: [email or web address] Encounters Encounter Location(s) Arrival/Admit Date Discharge/Departure Date Discharge/Departure Disposition Provider(s) Departed Clinical -[facility] [place] January 25, 2025 6:37am January 25, 2025 6:38am Discharged to home care or self care (routine discharge) Ousmane Kern DO Departed Physician/ Provider Office Visit -[facility] [place] January 27, 2025 12:47pm January 27, 2025 1:32pm Discharged to home care or self care (routine discharge) Ousmane Kern DO Departed Referred -[facility] February 16, 2025 3:33pm February 16, 2025 3:34pm Discharged to home care or self care (routine discharge) Beni Carvalho Departed Referred -[facility] March 11, 2025 10:24am March 11, 2025 10:25am Discharged to home care or self care (routine discharge) Beni Carvalho Recent Diagnosis Onset Date Admit Date Anxiety and depression Unknown January 27, 2025 12:47pm Hyperlipidemia Unknown January 27 12:47pm Hypertension Unknown January 27 12:47pm Assessments Author Jaki Calles [facility]2024 12:11pmSooner if needed, the ER if concerns,The above note written by Jaki Calles LPN acting as human recorder, note dictated by Dr. Shen Esparza Plan of Treatment Author Shen Esparza [facility]2024 2:28pmBlood pressure appears to be well controlled [...]
--- OUTSIDE RECORDS SUMMARY | 2025-04-14 14:41 | XMS_ITS | Clinical Summary ---
Author Organization [facility] Address [address] [place] [address] Care Team Providers Care Secretary Administrative Assistant Name Role Phone KirillmartinezConnoran Ousmane QUACH Primary Care Provider [phone] Allergies No known active allergies Medications MedicationSigDispense QuantityRefillsLast FilledStart DateEnd DateStatus citalopram (CeleXA) 20 MG tablet 5Active hydroCHLOROthiazide (HYDRODiuril) 12.5 MG tablet 5Active amLODIPine (Norvasc) 10 MG tablet 5Active Encounters DateTypeDepartmentCare FmgdKzvlhvrmixo67/20/2025Telephone [facility] OBCORBYN [address] [place] [address] Tiny Alberto LPN 03/24/2025 2:30 PM EDTOffice Visit [facility]ie OBROSEY [address] [place] [address] Vera Greer PA Encounter for postoperative care03/24/2025amboo flowsheet [facility] OBGYN [address] [place] [address] Vera Greer PA 03/16/2025bstract [facility] [address] [place] [address] Lucy Hirsch MA 03/11/2025linisync Result Encounter [facility]OMS External Department Unsolicited Hima Carvalho DO 03/07/2025Telephone [facility] OBGYN [address] [place] [address] Tiny Alberto MANUEL 03/02/2025linisync Result Encounter [facility] External Department Unsolicited Hima Carvalho, 03/02/2025linisync Result Encounter [facility] External Department Unsolicited Hima Carvalho, 02/23/2025bstract [facility] [place] OBROSEY [address] [place] [phone] Lucy Hirsch MA 02/16/2025 3:30 PM EDTProcedure Visit [facility] LEONARD [address] [place] [phone] Hima Carvalho DO Pre-op examination; Menorrhagia with regular cycle; Abnormal uterine bleeding (AUB); Pelvic pain02/16/2025External Result Encounter [facility] External Department Unsolicited Hima Carvalho, 01/17/2025 1:20 PM EDTOffice Visit [facility] [address] [place] [phone] Hima Carvalho DO Menorrhagia with irregular cycle; Follow-up exam01/17/2025amboo flowsheet [facility] [address] [place] [address] Hima Carvalho DO from Last 3 Months Social History Tobacco UseTypesPacks/DayYears UsedDateSmoking Tobacco: Never Assessed CommentsUnknownSex and Gender InformationValueDate RecordedSex Assigned at Not on fileLegal PefTokusu00/15/2023 7:30 PM EDTGender IdentityNot on fileSexual OrientationNot on file Last Filed Vital Signs Vital SignReadingTime TakenCommentsBlood Ytxutvrq905/7401/17/2025 1:25 PM EDT Pulse--Temperature--Respiratory Rate--Oxygen Saturation--Inhaled Oxygen Concentration--Vhddwy40.1 kg (194 lb 1.9 oz)02/16/2025 3:37 PM EDTHeight--Body Mass Index-- Plan of Treatment DateTypeDepartmentCare Team (Latest Contact Info)Tjazfshiwfi91/06/2026 2:20 PM ESTConsult [facility]OM[facility] MAN [address] [place] [address] Hima Carvalho, DO [address] [place] [address] 07/18/2025 2:00 PM ESTProcedure Visit ANU LEONARD [address] [place] [address] Hima Carvalho, DO [address] [place] [address] Procedures Procedure NamePriorityDate/TimeAssociated DiagnosisCommentsALL TYPE AND SCREEN Fwmsmob8503/11/2025 9:37 AM EDT PACKED RED BLOOD KNOWDLdcboja13/17/2025 9:37 AM EDT ALL BASIC METABOLIC AEGNZBsogjnn90/08/2025 9:30 AM EDT ECG 12-LEAD03/02/2025 7:28 AM EDT ENDOMETRIAL JZSEUAEawnvdu71/24/2025 4:07 PM EDT Menorrhagia with regular cycle Abnormal uterine bleeding (AUB) POCT , ZULUNFjgsgad47/24/2025 3:43 PM EDT Menorrhagia with regular cycle Abnormal uterine bleeding (AUB) Pelvic pain PATHOLOGY REQUEST FOR LAB MWPMChrsudp76/24/2025 12:00 AM EDT from Last 3 Months Results * PACKED RED BLOOD CELLS (03/11/2025 9:37 AM EDT)ComponentValueRef RangeTest MethodAnalysis TimePerformed AtPathologist SignaturePACKED RED BLOOD CELLSTBH Comment: [id number] ??ON ?RC ? TRANSFUSED ? 03/11/25 1059 Specimen (Source)Anatomical Location / LateralityCollection Method / Volume Collection TimeReceived Time03/11/2025 9:37 AM EDT1 9:41 AM EDT Narrative Authorizing ProviderResult TypeResult StatusCorey Deven DOLAB BLOOD ORDERABLES Final ResultPerforming OrganizationAddressCity/State/ZIP CodePhone Number [facility] * ALL TYPE AND SCREEN (03/11/2025 9:37 AM EDT)ComponentValueRef RangeTest Method Analysis TimePerformed AtPathologist SignatureBLOOD TYPEO PositiveTBHANTIBODY SCREENNEGATIVETBHSpecimen (Source)Anatomical Location / LateralityCollection Method / VolumeCollection TimeReceived Time03/11/2025 9:37 AM EDT1 9:41 AM EDT Narrative [facility] - 03/11/2025 1:19 PM EDT [facility] , Authorizing ProviderResult TypeResult StatusCorey Deven DOCLINISYNCFinal Result Performing OrganizationAddressCity/State/ZIP CodePhone Number [facility] * (ABNORMAL) ALL BASIC METABOLIC PANEL (03/02/2025 9:30 AM EDT)ComponentValueRef RangeTest MethodAnalysis TimePerformed AtPathologist RdjvaudsvVADHHK150413 - 145 mmol/LTBHPOTASSIUM4.13.5 - 5.1 mmol/CZKJURLDZQZQ19612 - 107 mmol/LTBH CARBON MDANTWA76.521.0 - 32.0 mmol/LTBHANION GAP14.2ZKQOIDIIHY0436 - 106 mg/dL TBHBLOOD UREA NITROGEN8.07.0 - 18.0 mg/dLTBHCREATININE0.45(L)0.55 - 1.02 mg/dL TBHTBH EGFR-AF CANADIAN>60>=60 mL/min/1.73m 2TBHTBH EGFR-NON AF CANADIAN>60 >=60 mL/min/1.73m 2TBHBUN CREATININE RATIO17.4CTHRZBVOAZ5.88.5 - 10.1 mg/dLTBH Specimen (Source)Anatomical Location / LateralityCollection Method / Volume Collection TimeReceived Time03/02/2025 9:30 AM EDT1 9:38 AM EDT Narrative [facility] - 03/02/2025 10:15 AM EDT Authorizing ProviderResult TypeResult StatusCorey Deven DOCLINISYNCFinal Result Performing OrganizationAddressCity/State/ZIP CodePhone Number [facility] * ECG 12-LEAD (03/02/2025 7:28 AM EDT)Anatomical RegionLateralityModalityOther Specimen (Source)Anatomical Location / LateralityCollection Method / Volume Collection TimeReceived Time03/02/2025 7:28 AM EDT Narrative 03/02/2025 11:19 AM EDT [facility] ?[address] ? [place] [address] ? Electrocardiograph Report ? Signed ? Patient: ANN MARIE POSADAS L ?MR#: [id number] ?? : 1980 ?Acct:[id number] ?? Age/Sex: 45 / F ?ADM Date: 03/02/25 ?? Loc: PST ? Attending Dr: Hima Carvalho D.O. ? Ordering Physician: Hima Carvalho D.O. ?? Date of Service: 03/02/25 ?? Procedure(s): ECG 12 lead ?? Accession Number(s): [id number] ? cc: ?[facility] ? Test Date: ?2025-03-02 ?? Pat Name: ? ANN MARIE POSADAS ? Department: ? Room: ? - ?? Gender: ? Female ? 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 : ?1980 ? Requested By: HIMA CARVALHO ?? Order Number: [id number] ?Reading MD: ?? DAMION CORREA ? Measurements ?? Intervals ?[place] ? Rate: ? 91 ? P: ?42 ?? MI: ? 149 ?QRS: ?47 ?? QRSD: ? 81 ? T: ?25 ?? QT: ? 355 ? QTc: ?437 ? Interpretive Statements ?? SINUS RHYTHM ?? No previous ECG available for comparison ?? Electronically Signed On 03-02-2025 11:18:57 EDT by DAMION CORREA ? Dictated By: ?Damion Correa M.D. ? Signed By: ?03/02/25 1119 ? DD/ 0728 ? TD/TT: ? Chief Of Service: Procedure Note Radiology, Radiologist, MD - 03/02/2025 [place] [address] Electrocardiograph Report Signed Patient: ANN MARIE POSADAS LMR#: [id number] : 1980Acct:[id number] Age/Sex: 45 / FADM Date: 03/02/25 Loc: PST Attending Dr: Hima Carvalho D.O. Ordering Physician: Hima Carvalho D.O. 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 Signed By:03/02/25 1119 DD/ 0728 TD/TT: Chief Of Service: Authorizing ProviderResult TypeResult Roland Carvalho DOCLINISYNC IMAGINGFinal Result * Endometrial biopsy (02/16/2025 4:07 PM EDT) Mela Fermin LPN - 02/16/2025 4:07 PM EDT Mela Mcneil LPN 02/16/2025 4:18 PM Endometrial biopsy Date/Time: 02/16/2025 4:07 PM Performed by: Hima Carvalho DO Authorized by: Hima Carvalho DO ?? Consent: ??Consent obtained: verbal ??Consent given by: patient ??Risks discussed: bleeding ??Alternatives discussed: alternative treatment ??Patient agrees, verbalizes understanding, and wants to proceed: yes ?? Indications: ??Indications: abnormal uterine bleeding and other menstrual disorder ?Chronicity of post-menopausal bleeding: recurrent Pre-procedure: ??Urine test: negative ?? Procedure: ??Tenaculum used: yes ?? Findings: ??Cervix: normal ?Specimen collected: specimen collected and sent to pathology ?Patient tolerance: tolerated well, no immediate complications Authorizing ProviderResult TypeResult Roland Carvalho DOIN CLINIC/BEDSIDE ORDERABLESFinal Result * POCT , urine manually resulted (02/16/2025 3:43 PM EDT)ComponentValue Ref RangeTest MethodAnalysis TimePerformed AtPathologist SignaturePreg Test, UrNegativeNegativeSpecimen (Source)Anatomical Location / LateralityCollection Method / VolumeCollection TimeReceived HqpnPlvrq40/24/2025 3:43 PM EDT Narrative Authorizing ProviderResult TypeResult StatusCorey Deven DOPOINT OF CARE TEST ENTER/EDIT ORDERABLESFinal Result * PATHOLOGY REQUEST FOR LAB LIU (02/16/2025 12:00 AM EDT)ComponentValueRef RangeTest MethodAnalysis TimePerformed AtPathologist SignaturePATHOLOGY REQUEST FOR LAB CORP02/23/2025 10:41 AM ED[facility] Comment:See report. Scanned copy available in EMR.Specimen (Source)Anatomical Location / LateralityCollection Method / VolumeCollection TimeReceived Time OtherTopography unknown / Mnbktaw74/ 1:31 PM EDT Narrative [facility] - 02/23/2025 10:41 AM EDT EMBX Authorizing ProviderResult TypeResult StatusCorey Deven DOLAB BLOOD ORDERABLES Final ResultPerforming OrganizationAddressCity/State/ZIP CodePhone Number [facility] [address] [place] [address], [facility] [address] [place] [address] from Last 3 Months Insurance * Guarantor: Linda Posadas TypeRelation to PatientDate of BirthPhone Billing AddressPersonal/OenvhvXsux1980 [address] [place] [address] Care Teams Team MemberRelationshipSpecialtyStart DateEnd Date Shen Esparza DO [facility] [place] [address] [facility] - General07/15/24
--- OUTSIDE RECORDS SUMMARY | 2025-04-14 14:41 | XMS_ITS | Encounter Summary ---
Author Organization [facility] Address [address] [place] [address] Care Team Providers Care Assistant [employer] Name Role Phone Shen Esparza DO Primary Care Provider [phone] Encounter Details DateTypeDepartmentCare Team (Latest Contact Info)Tifhhzmacjq45/17/2025linisync Result Encounter [facility] External Department Unsolicited Beni Carvalho, DO [address] [place], [facility] Social History Tobacco UseTypesPacks/DayYears UsedDateSmoking Tobacco: Never Assessed CommentsUnknownSex and Gender InformationValueDate RecordedSex Assigned at Not on fileLegal MgrOubrsc27/15/2023 7:30 PM EDTGender IdentityNot on fileSexual OrientationNot on filedocumented as of this encounter Plan of Treatment DateTypeDepartmentCare Team (Latest Contact Info)Nnkzctokbfo20/06/2026 2:20 PM ESTConsult ANU LEONARD [address] [place] [address] [place] [address] Beni Carvalho, DO [address] [place], [place] [id number] 07/18/2025 2:00 PM ESTProcedure Visit ANU LEONARD [address] [place], [place] [address] [address] Beni Carvalho, DO [address] [place], [place] [address] documented as of this encounter Procedures Procedure NamePriorityDate/TimeAssociated DiagnosisCommentsPACKED RED BLOOD WCDLHDywalop17/17/2025 9:37 AM EDT ALL TYPE AND GCUFDPNruvawa91/17/2025 9:37 AM EDT documented in this encounter Results * ALL TYPE AND SCREEN (03/11/2025 9:37 AM EDT)ComponentValueRef RangeTest Method Analysis TimePerformed AtPathologist SignatureBLOOD TYPEO PositiveTBHANTIBODY SCREENNEGATIVETBHSpecimen (Source)Anatomical Location / LateralityCollection Method / VolumeCollection TimeReceived Time03/11/2025 9:37 AM EDT1 9:41 AM EDT Narrative [facility]IN[facility]YNC - 03/11/2025 1:19 PM EDT [facility] , Authorizing ProviderResult TypeResult StatusCorey Deven DOCLINISYNCFinal Result Performing OrganizationAddressCity/State/ZIP CodePhone Number [facility] * PACKED RED BLOOD CELLS (03/11/2025 9:37 AM EDT)ComponentValueRef RangeTest MethodAnalysis TimePerformed AtPathologist SignaturePACKED RED BLOOD CELLSTBH Comment: [id number] ??ON ?RC ? TRANSFUSED ? 03/11/25 1059 Specimen (Source)Anatomical Location / LateralityCollection Method / Volume Collection TimeReceived Time03/11/2025 9:37 AM EDT1 9:41 AM EDT Narrative Authorizing ProviderResult TypeResult StatusCorey Deven DOLAB BLOOD ORDERABLES Final ResultPerforming OrganizationAddressCity/State/ZIP CodePhone Number [facility] documented in this encounter Visit Diagnoses Not on filedocumented in this encounter Care Teams Team MemberRelationshipSpecialtyStart DateEnd Date Shen Esparza DO [facility] [place] [phone] PCP - General07/15/24documented as of this encounter
--- OUTSIDE RECORDS SUMMARY | 2025-04-14 14:41 | XMS_ITS | CCD ---
Author Organization [facility] Care Team Providers Care Subway Conductor Name Role Phone DR JASON PADILLA Attending Unavailable BRETT, DR GOMEZ Consulting Unavailable DR JASON PADILLA Admitting Unavailable [facility] [place] SHAN[place] Primary Care Unavailable Shen Esparza Unavailable Bonita Parra Unavailable DO Shen Esparza Primary Care Provider DO Shen Esparza Attending Provider [phone] Shen Esparza MD Primary Care Provider Shen Esparza DO Primary Care Provider [phone] Lucio Goldstein DO Attending Provider Shen Esparza DO Primary Care Provider Shen Esparza DO Attending Provider Beni Carvalho DO Attending Provider [phone] Lucio Goldstein Admitting Unavailable Shen Esparza Primary Care Unavailable Lucio Goldstein Attending Unavailable Beni Carvalho Attending Unavailable Beni Carvalho Admitting Unavailable Shen Esparza Primary Care Unavailable Shen Esparza Attending Unavailable Shen Esparza Primary Care Unavailable Shen Esparza Admitting Unavailable Beni Carvalho Attending Unavailable Beni Carvalho Admitting Unavailable VERA FATIMA Attending Unavailable BENI CARVALHO Attending Unavailable BENI CARVALHO Attending Unavailable VERA FATIMA Attending Unavailable Medications Current Medications MedicationDrug Class(es)DatesSig (Normalized)Sig (Original)[id number] 200 actuat albuterol 0.09 mg/actuat metered dose inhaler (18 sources)beta2-Adrenergic AgonistStart: 07-16-2023 End: 77-10-0459jqeo 2 puff(s) by inhalation every six hours as neededStart: 16-67-2476pzfo 2 puff(s) by inhalation every six hours as neededProAir HFA 108 (90 Base) MCG/ACT 2 puffs as needed Inhalation every 6 hrs Dec, Active Albuterol Sulfate (Proair Hfa) 90 mcg/actuation HFA aerosol inhaler (3 sources)Start: 04-42-8172utwy 2 puff(s) by inhalation every six hours as neededAlbuterol Sulfate (Proair Hfa) 90 mcg/actuation HFA aerosol inhaler Active 2 PUFF INHALATION Every 6 hours 6.7 July 17, 2023 2:16pm FreeTextSi puffs as needed Inhalation every 6 hrs; Note: Source Status: Not- TakingundefinedPRN; Provider: Isaias Gotti PStart: 81-62-3113vjbq 2 puff(s) by inhalation every six hours as neededAlbuterol Sulfate (Proair Hfa) 90 mcg/actuation HFA aerosol inhaler Active 2 PUFF INHALATION Every 6 hours 6.7 July 17, 2023 3:16pm FreeTextSi puffs as needed Inhalation every 6 hrs; Note: Source Status: Not-Taking\PRN; Provider: Isaias Gotti PamLODIPine 10 mg oral tablet (20 sources)Dihydropyridine Calcium Channel BlockerStart: 42-35-3651umCSODIqft (Norvasc) 10 MG tablet 07/06/2024 ActiveStart: 07-16-2023 End: 88-95-4540peoe 1 tablet by mouth once dailyAmlodipine 10 mg tablet Discontinued 10 MG PO Daily 90 July 17, 2023 3:14pm April 05, 2024 3:51pm Hypertension Essential (primary) hypertension FreeTextSi tablet Orally Once a day; Note: Source Status: Taking; Provider: Isaias Gotti PStart: 92-99-6961tsjw 1 tablet by mouth every twenty-four hoursamLODIPine Besylate 10 MG 1 tablet Orally Once a day Nov, Activeciprofloxacin 3 mg/ml ophthalmic solution (3 sources)Quinolone AntimicrobialStart: 03-25-4794ppno 1-2 drop(s) into the eye(s) every four hoursCiprofloxacin HCl 0.3 % 1-2 drops Ophthalmic every 4 hours for 7 Jun, ActiveStart: 25-73-3874yrei 1-2 drop(s) into the eye(s) every four hoursCiprofloxacin HCl 0.3 % 1-2 drops Ophthalmic every 4 hours for 7 days September, Activecitalopram 20 mg oral tablet (20 sources)Serotonin Reuptake InhibitorStart: 07-16-2023 End: 09-76-0027umoyvlotei (CeleXA) 20 MG tablet 07/06/2024 ActiveStart: 37-19-4752yuni 1 tablet by mouth every twenty-four hoursCeleXA 20 MG 1 tablet Orally Once a day for 90 days Nov, ActivehydroCHLOROthiazide 12.5 mg oral tablet (20 sources)Thiazide DiureticStart: 82-56-8013zrfkpFAZCIDsgxgppqq (HYDRODiuril) 12.5 MG tablet 07/06/2024 ActiveStart: 07-16-2023 End: 76-58-5000Btyiiziidmkdgkncwxj 12.5 mg tablet Discontinued 12.5 MG PO Every 48 hours 90 0 January 15, 2024 1:33pm April 05, 2024 3:51pm FreeTextSi tablet Orally every other day; Note: Source Status: Not-Taking\PRN; Provider: Isaias Gotti PLORazepam 0.5 mg oral tablet (20 sources)BenzodiazepineStart: 07-17-2023 End: 26-60-1003tjmd 1 tablet by mouth once daily as needed for anxietyStart: 02-21-5026bkme 1 tablet by mouth every six hoursAtivan 0.5 MG 1 tablet as needed Orally every 6 hrs PRN Oct, ActiveStart: 65-47-8756gtrd 1 tablet by mouth every six hoursAtivan 0.5 MG 1 tablet as needed Orally every 6 hrs PRN Oct, Not-Taking Completed/Discontinued Medications MedicationDrug Class(es)DatesSig (Normalized)Sig (Original)acyclovir 800 mg oral tablet (20 sources)Herpesvirus Nucleoside Analog DNA Polymerase Inhibitor, Herpes Simplex Virus Nucleoside Analog DNA Polymerase Inhibitor, Herpes Zoster Virus Nucleoside Analog DNA Polymerase InhibitorStart: 07-16-2023 End: 15-62-7999mlhb 2 tablets by mouth twice daily as neededAcyclovir 800 mg tablet Discontinued 800 MG PO July 17, 2023 2:45pm June 23, 2024 1:33pmFreeTextSi tablet Orally prn Twice a day; Note: Source Status: Not- Taking\PRNprn; Refills: 5; Provider: Isaias Gotti PStart: 83-22-8455rwbf 2 tablets by mouth twice daily as neededAcyclovir 800 MG 2 tablet Orally prn Twice a day for 2 days prn Jan, Not-Taking/PRNcephalexin 500 mg oral capsule (9 sources)Cephalosporin AntibacterialStart: 07-17-2023 End: 96-32-3599fpmr 1 capsule by mouth three times dailyCephalexin 500 mg capsule Discontinued 500 MG PO Three times daily 30 10 0 July 17, 2023 1:00am January 15, 2024 1:04pm Lymphadenopathy of right cervical region Localized enlarged lymph nodesdiclofenac sodium 20 mg/ml topical solution (10 sources)Nonsteroidal Anti-inflammatory DrugStart: 96-61-5049Ooxxnthw 2 % 2 pumps Externally Twice a day sample provided Jul, Not-Taking Hydrochlorothiazide-12.5 mg 12.5 mg (11 sources)Start: 99-96-6624jove 1 tablet by mouth every other day as needed Hydrochlorothiazide-12.5 mg 12.5 mg 1 tablet Orally every other day Feb, Not-Taking/PRNStart: 28-21-7664fmom 1 tablet by mouth every other day Hydrochlorothiazide-12.5 mg 12.5 mg 1 tablet Orally every other day Feb, Activeirbesartan 150 mg oral tablet (20 sources)Angiotensin 2 Receptor BlockerStart: 07-16-2023 End: 20-62-3691wojx 1 tablet by mouth once dailyIrbesartan 150 mg tablet Discontinued 150 MG PO Daily 90 3 July 17, 2023 3:15pm April 05, 2024 3:51pm Hypertension Essential (primary) hypertension FreeTextSi tablet Orally Once a day;Note: Source Status: Taking; Provider: Isaias Gotti PStart: 44-85-4382rdty 1 tablet by mouth every twenty-four hoursIrbesartan 150 MG 1 tablet Orally Once a day May, Activepotassium bicarbonate 25 meq effervescent oral tablet (10 sources)Start: 11-26-0080deha 1 tablet by mouth once daily at mealtimeKlor- Con/EF 25 MEQ 1 tablet dissolved in water with meals Orally once a day Apr, Not-TakingProAir HFA 108 (90 Base) MCG/ACT (7 sources)Start: 89-06-2695neqh 2 puff(s) by inhalation every six hours as neededProAir HFA 108 (90 Base) MCG/ACT 2 puffs as needed Inhalation every 6 hrs Dec, Not-Taking/PRNStart: 99-89-6842ebzg 2 puff(s) by inhalation every six hours as neededProAir HFA 108 (90 Base) MCG/ACT 2 puffs as needed Inhalation every 6 hrs Dec, ActiveStart: 07-25-2596aoas 2 puff(s) by inhalation every six hours as neededProAir HFA 108 (90 Base) MCG/ACT 2 puffs as needed Inhalation every 6 hrs for 90 days Dec, Active Problems Active Problems Problem ClassificationProblemDateDocumented DateEpisodic/ChronicAbdominal pain (1 source)Pain in pelvis; Translations: [Pelvic and perineal pain]02-16-2025 EpisodicAnxiety disorders (20 sources)Anxiety; Translations: [Anxiety disorder, unspecified]Onset: 10-09-2021 Resolved: 29-45-4995NgahgvaVzkcoi (8 sources)Asthma; Translations: [Unspecified asthma, uncomplicated]07-17-2023 ChronicDisorders of lipid metabolism (20 sources)Hypertriglyceridemia; Translations: [Pure hyperglyceridemia]Onset: 11-19-2021 Resolved: 54-36-6144LglnkygUhfphscrh hypertension (20 sources)Benign essential hypertension; Translations: [Essential (primary) hypertension]Onset: 05-21-2021 Resolved: 16-17-9024SslzkmuKmxlrixbjvtcq and screening for infectious disease (1 source)Encounter for screening for human papillomavirus (HPV); Translations: [ENC SCREENING HUMAN PAPILLOMAVIRUS]Onset: 70-00-5678TtjmyaxuMbgmjsdckrfq; infection of eye (except that caused by tuberculosis or sexually transmitteddisease) (2 sources)Unspecified acute conjunctivitis, right eye; Translations: [Unspecified acute conjunctivitis, bilateral]EpisodicLymphadenitis (10 sources)Cervical lymphadenopathy; Translations: [Localized enlarged lymph nodes]04-43-2894ZxjdbjncZxxvldtko disorders (3 sources)Menometrorrhagia; Translations: [Excessive and frequent menstruation with irregular cycle]83-09-4950LkhiqvkZbry disorders (1 source)Mood disorders; Translations: [Depression, unspecified]Onset: 86-76-6638Xlkabxtrogs deficiencies (9 sources)Vitamin D deficiency; Translations: [Vitamin D deficiency, unspecified]Onset: 599607-97-4595VyxikppFdvbi aftercare (2 sources)Patient encounter status; Translations: [Encounter for follow-up examination after completed treatment for conditions other than malignant neoplasm]33-51-4733DfbbaqizLhudx aftercare (2 sources)Postoperative visit; Translations: [Encounter for other specified surgical aftercare]77-07-5365OvcvlcxsYdxic connective tissue disease (11 sources)Pain in right heel; Translations: [Pain in right foot]EpisodicOther female genital disorders (1 source)Abnormal uterine bleeding; Translations: [Abnormal uterine and vaginal bleeding, unspecified]30-94-9325CzczjzcLwnxy lower respiratory disease (2 sources)WheezingEpisodicOther screening for suspected conditions (not mental disorders or infectious disease) (18 sources)Encounter for screening for malignant neoplasm of cervix; Translations: [Patient encounter status]Onset: 17-99-6772WuhejsdpSnlncvkwt- related disorders (20 sources)Nicotine dependence; Translations: [Nicotine dependence, unspecified, uncomplicated]Chronic Past or Other Problems Problem ClassificationProblemDateDocumented DateEpisodic/ChronicResidual codes; unclassified (1 source)Edema, unspecifiedOnset: 11-19-2021 Resolved: 23-68-5389Pneyxgiu Results Test NameValueInterpretationReference RangeFacilityALL TYPE AND SCREENon 72-19-2014GDK and Rh group Nom (Bld)Blood group O Rh(D) positiveNOMS HealthcareL on 03-11-2025L Specimen: [id number] Received: 03/11/25 Status: ASHLEY Tavarestiti Num: [id number] Spec Type: Surgical Subm Dr: Beni Carvalho Tissues: A Endometrium - Curettings (ENDOMETRIAL CURETTINGS) Procedures: HE/2, Gross/Micro L4 Age/ Patient Sex Location Account Attending Physician Ann Marie Posadas 45/F LABELL [id number] Beni Carvalho SPEC NUM: [id number] RECD: 03/11/25 STATUS: ASHLEY HAWA NUM: [id number] MARTINA: 03/11/[address]: Beni Carvalho ENTERED: 03/11/[address]: Sebas Zelaya SPEC TYPE: Surgical DEPT: MAMIE HERNANDEZ ENTERED BY: [id number] RECV BY: [id number] ORDERED: HE/2, Gross/Micro L4 ORDERED: , Gross/Micro L4 Pathological Diagnosis Endometrium, curettage: - Proliferative phase endometrium. - No evidence of hyperplasia or malignancy identified. Clinical Information Simple endometrial hyperplasia without atypia Gross Description Received in formalin labeled with the patient's name, date of , and endometrial curettings is an aspiration device with jim-pink to red-brown, delicate tissue fragments, 2.5 x 1.5 x 0.3 cm in aggregate. The specimen is filtered and entirely submitted in a single cassette. (1, ns, [id number] A) Microscopic Description Microscopic examination is performed. Specimen: [id number] Received: 03/11/25 Status: ASHLEY Hawa Num: [id number] Spec Type: Surgical Subm Dr: Beni Carvalho Tissues: A Endometrium - Curettings (ENDOMETRIAL CURETTINGS) Procedures: , Gross/Micro L4 Patient: Ann Marie Posadas [id number] (Continued) Specimen: [id number] Received: 03/11/25 (Continued) Signed (signature on file) Vineet Zuñiga MD 03/14/25 1402 Specimen: [id number] Received: 03/11/25 Status: ASHLEY Hawa Num: [id number] Spec Type: Surgical Subm Dr: Beni Carvalho Tissues: A Endometrium - Curettings (ENDOMETRIAL CURETTINGS) Procedures: Mana MA/Sergo Carroll Patient: Ann Marie Posadas [id number] (Continued) Specimen: [id number] Received: 03/11/25 (Continued) CPT Codes 11904 Specimen: [id number] Received: 03/11/25 Status: ASHLEY Sidhu Num: [id number] Spec Type: Surgical Subm Dr: Beni Carvalho Tissues: A Endometrium - Curettings (ENDOMETRIAL CURETTINGS) Procedures: HE/Mana Bob/Sergo L4 Patient: Ann Marie Posadas [id number] (Continued) Signed (signature on file) Vineet Zuñiga MD 03/14/25 1402Normal [facility] Physician GroupNo Panel Informationon 26-26-1925Irf [facility] ,CLINISYNCNOMS HealthcarePACKED RED BLOOD CELLSon 31-45-4689JIOQFN RED BLOOD CELLSNOMS HealthcareComment on above:[id number] ON TRANSFUSED 03/11/25 1059 ALL BASIC METABOLIC PANELon 33-50-4603Gihle gap [Moles/Vol]14.6 mmol/LNOMS HealthcareCalcium [Mass/Vol]8.8 mg/dL8.5 - 10.1 mg/dLNOMS HealthcareChloride [Moles/Vol]104 mmol/L98 - 107 mmol/LNOMS HealthcareCO2 [Moles/Vol]25.5 mmol/L 21.0 - 32.0 mmol/LNOMS HealthcareCreatinine [Mass/Vol]0.45 mg/dLLow0.55 - 1.02 mg/dLNOAK HealthcareGFR/1.73 sq M.predicted CKD-EPI (S/P/Bld) [Vol rate/Area]>60 >=60 mL/min/1.73m 2NOMS HealthcareGlucose [Mass/Vol]96 mg/dL74 - 106 mg/dLNOAK HealthcareInterpretation and review of laboratory resultsAbnormalNOAK Healthcare Potassium [Moles/Vol]4.1 mmol/L3.5 - 5.1 mmol/LNOMS HealthcareSodium [Moles/Vol] 140 mmol/L136 - 145 mmol/LNOMS HealthcareTBH EGFR-NON AF GERMAN>60>=60 mL/min/1.73m 2NOMS HealthcareUrea nitrogen [Mass/Vol]8 mg/dL7.0 - 18.0 mg/dLNOAK HealthcareUrea nitrogen/Creatinine [Mass ratio]17.8 mg/mgNOAK Healthcare CLINISYNCNOAK HealthcareECG 12-LEADon 49-49-0423[place], [place] [address] Electrocardiograph Report Signed Patient: ANN MARIE POSADAS MR#: [id number] : 1980 Acct:[id number] Age/Sex: 45 / F ADM Date: 03/02/25 Loc: PST Attending Dr: Beni Carvalho D.O. Ordering Physician: Beni Carvalho D.O. 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 Signed By: 03/02/251118 DD/ 7 TD/TT: [employer]:ARVINDHRadiologJenna garcia, - 03/02/2025 [place] [address] Electrocardiograph Report Signed Patient: ANN MARIE POSADAS MR#: [id number] : 1980 Acct:[id number] Age/Sex: 45 / F ADM Date: 03/02/25 Loc: [facility] Attending Dr: Beni Carvalho D.O. Ordering Physician: Beni Carvalho D.O. 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 Signed By: 03/02/251118 DD/ 7 TD/TT: [employer]: ANU SchneiderRadiology Study observation (narrative)ANU HealthcareECG 12-LEAD Ordered By: Radiologist Radiology on 08-65-7884NZGM Healthcare Work Phone: PATHOLOGY REQUEST FOR LAB CORPon 03-64-2289ZRTSCLSIY REQUEST FOR LAB CORPNOMS HealthcareComment on above:See report. Scanned copy available in EMR.EMBXKettering Health SpringfieldEndometrial biopsyon 02-16-2025 Mela Mcneil LPN 02/16/2025 4:18 PM Endometrial biopsy Date/Time: 02/16/2025 4:07 PM Performed by: Beni Carvalho DO Authorized by: Beni Carvalho DO Consent: Consent obtained: verbal Consent [...] pathology Patient tolerance: tolerated well, no immediate complicationsResearch Medical Center Endometrial biopsyOrdered By: Mela Mcneil on 55-35-4974EGLUResearch Medical CenterHCG ( test) Ql (U)Ordered By: Tsering Tabor on 93-97-1199Nsntdnmxmhuyse and review of laboratory resultsNoalResearch Medical Center Work Phone: preg Test, UrNegativeNegativeResearch Medical Center Work Phone: [facility] Work Phone: no Panel InformationOrdered By: Beni Carvalho on 64-45-0363Cfgkivwziivdd Pathology TestSee Mercy Memorial HospitalComment on above:See report. Scanned copy available in EMR.Pathology Request for Lab Corpon 40-64-7939Lvnlquiok Request for Lab [facility] Physician GroupComment on above:Order Comment: EMBXResult Comment: See report. Scanned copy available in EMR. PERFORMED BY: [place] [address] PATHOLOGIST BRIDGE MAINTAINER TIEN SINGH M.D.Performed By: #### PATH TO [facility] #### [place] [address] USAA1C with Estimated Average Gluon 89-14-1864Ouceqpn [Mass/Vol]88 mg/dLNoNorth Carolina Specialty Hospital Physician GroupComment on above:Result Comment: PERFORMED BY: [place] [address] PATHOLOGIST BRIDGE MAINTAINER TIEN SINGH M.D.Performed By: #### TSH3, A1C WTH eA, CMP, LIPID, [id number], CBC #### [place] [address] USAAlanine aminotransferase [Enzymatic activity/volume] in Serum or PlasmaOrdered By: Shen Esparza on 52-61-7559GSI [Catalytic activity/Vol] 13 U/LNormal7-52[facility] Methodist HospitalComment on above:Performed By: #### TSH3, A1C WTH eA, CMP, LIPID, [id number], CBC #### [place] [address] USAAlbumin [Mass/volume] in Serum or Plasma by Bromocresol green (BCG) dye binding methoOrdered By: Shen Esparza on 97-26-9063Jhvjahl BCG dye [Mass/Vol]4.1 g/dL3.5-5.7FSalem Regional Medical CenterAlkaline phosphatase [Enzymatic activity/volume] in Serum or PlasmaOrdered By: Shen Esparza on 21-57-5649MAL [Catalytic activity/Vol]101 U/ZLsxkyn34-027WkmqjcfqaOhiohealth Pickerington Methodist HospitalComment on above:Performed By: #### TSH3, A1C WTH eA, CMP, LIPID, [id number], CBC #### [facility] [address] [place] [address] USAAspartate aminotransferase [Enzymatic activity/volume] in Serum or PlasmaOrdered By: Shen Esparza on 35-79-6292HVG [Catalytic activity/Vol] 23 U/CWyzrbp30-05LeeingyvoOhiohealth Pickerington Methodist HospitalComment on above:Performed By: #### TSH3, A1C WTH eA, CMP, LIPID, [id number], CBC #### [place] [address] USABasophils [#/volume] in Blood by Automated countOrdered By: Shen Esparza on 33-81-5719Psgvdkkaw (Bld) [#/Vol]0.1 10*3/uLNormal0.0-0.2 [facility] HospitalComment on above:Result Comment: PERFORMED BY: [place] [address] PATHOLOGIST BRIDGE MAINTAINER TIEN SINGH M.D.Performed By: #### TSH3, A1C WTH eA, CMP, LIPID, [id number], CBC #### [place] [address] USABasophils/100 leukocytes in Blood by Automated count Ordered By: Shen Esparza on 39-16-7600Ttcvjqakf/100 WBC (Bld)0.9 %Normal.[facility] Methodist HospitalComment on above:Performed By: #### TSH3, A1C WTH eA, CMP, LIPID, [id number], CBC #### [place] [address] USABilirubin.total [Mass/volume] in Serum or PlasmaOrdered By: Shen Esparza on 33-62-9327Omneoawxs [Mass/Vol]0.4 mg/dLNormal0.3-1.0[facility] HospitalComment on above:Performed By: #### TSH3, A1C WTH eA, CMP, LIPID, [id number], CBC #### [place] [address] USABlood estimated average glucose determination by estimation from glycated hemoglobinOrdered By: Shen Esparza on 82-53-6988Icyqroz glucose Estimated from glycated hemoglobin (Bld) [Mass/Vol]88 mg/dLOhiohealth Pickerington Methodist HospitalCalcium [Mass/volume] in Serum or PlasmaOrdered By: Shen Esparza on 86-33-7590Vjspktn [Mass/Vol]8.8 mg/dLNormal8.6-10.3FSalem Regional Medical CenterComment on above:Performed By: #### TSH3, A1C WTH eA, CMP, LIPID, [id number], CBC #### [place] [address] USACarbon dioxide, total [Moles/volume] in Serum or Plasma Ordered By: Shen Esparza on 99-68-4727OB4 [Moles/Vol]26.8 mmol/ZCxwmwd70.0-31.0 [facility] HospitalComment on above:Performed By: #### TSH3, A1C WTH eA, CMP, LIPID, [id number], CBC #### [facility] [address] [place] [address] USAChloride [Moles/volume] in Serum or PlasmaOrdered By: Shen Esparza on 75-86-5772Emcsnwyy [Moles/Vol]104 mmol/OTqonmy65-889KuocyuyflOhiohealth Pickerington Methodist HospitalComment on above:Performed By: #### TSH3, A1C WTH eA, CMP, LIPID, [id number], CBC #### [facility] [address] [place] [address] USACholesterol [Mass/volume] in Serum or PlasmaOrdered By: Shen Esparza on 35-51-4735Xizjwazqgtr [Mass/Vol]165 mg/qHHihipn404-233LbtufvzacOhiohealth Pickerington Methodist HospitalComment on above:Chol less than 200 mg/dl low riskChol 201-239 mg/dl borderline riskChol 240 mg/dl and greater high riskResult Comment: Chol less than 200 mg/dl low risk Chol 201-239 mg/dl borderline risk Chol 240 mg/dl and greater high riskPerformed By: #### TSH3, A1C WTH eA, CMP, LIPID, [id number], CBC #### [facility] [address] [place] [address] USACholesterol in HDL [Mass/volume] in Serum or PlasmaOrdered By: Shen Esparza on 47-21-6328Jlcutjfksdr in HDL [Mass/Vol]52 mg/gXChnkct39-17 [facility] HospitalComment on above:HDL CHOL ATP-III CLASSIFICATION Cardiovascular RiskHDL > or equal to 60 mg/dL LOWHDL < 40 mg/dL HIGHResult Comment: HDL CHOL ATP-III CLASSIFICATION Cardiovascular Risk HDL > or equal to 60 mg/dL LOW HDL < 40 mg/dL HIGHPerformed By: #### TSH3, A1C WTH eA, CMP, LIPID, [id number], CBC #### [facility] [address] [place] [address] USACholesterol in LDL Calc [Mass/Vol]Ordered By: Shen Esparza on 54-63-7160Wuvrzseaovq in LDL [Mass/Vol]60 mg/dL0-100Ohio[facility] Methodist HospitalComment on above:LDL ATP III CLASSIFICATIONLDL less than 100 mg/dL OptimalLDL 100-129 mg/dL Near or above ruodfwtLXP976-609 mg/dL Borderline highLDL 160-189 mg/dL HighLDL greater than 189 mg/dL Very highCholesterol in VLDL Calc [Mass/Vol]Ordered By: Shen Esparza on 98-66-6163Mscmxceuxgw in VLDL [Mass/Vol]52 mg/dLOhiohealth Pickerington Methodist HospitalComplete Blood Count Auto Diffon 13-43-5584Kgoq Corpuscular HGB Conc34.3 g/cMRmopax61.0-35.0[facility] Physician GroupComment on above:Performed By: #### TSH3, A1C WTH eA, CMP, LIPID, [id number], CBC #### [facility] [address] [place] [address] USANRBC%0.2 /100{WBC}Normal0-0.5[facility] Comment on above:Performed By: #### TSH3, A1C WTH eA, CMP, LIPID, [id number], CBC #### [facility] [address] [place] [address] USAWhite Blood Count6.4 [CFU]/mLNormal3.8-11.6[facility] Physician GroupComment on above:Performed By: #### TSH3, A1C WTH eA, CMP, LIPID, [id number], CBC #### [facility] [address] [place] [address] USAComprehensive Metabolic Panelon 85-22-9366Tprtxlm [Mass/Vol]4.1 g/dLNormal3.5-5.7The [facility] Physician GroupComment on above: Performed By: #### TSH3, A1C WTH eA, CMP, LIPID, [id number], CBC #### [facility] [address] [place] [address] USAGFR/1.73 sq M.predicted MDRD (S/P/Bld) [Vol rate/Area] mL/min/{1.73_m2}NormalThe [facility]om[facility] Physician GroupComment on above:Performed By: #### TSH3, A1C WTH eA, CMP, LIPID, [id number], CBC #### [facility] [address] [place] [id number] USACreatinine [Mass/volume] in Serum or PlasmaOrdered By: Shen Esparza on 11-21-9209Kyqjwpjdzq [Mass/Vol]0.49 mg/dLLow0.60-1.20[facility] HospitalComment on above:Performed By: #### TSH3, A1C WTH eA, CMP, LIPID, [id number], CBC #### [facility] [address] [place] [id number] USAEosinophils [#/volume] in Blood by Automated countOrdered By: Shen Esparza on 47-90-4496Ulayvmycsec (Bld) [#/Vol]0.2 10*3/uLNormal0.0-0.45 [facility] HospitalComment on above:Performed By: #### TSH3, A1C WTH eA, CMP, LIPID, [id number], CBC #### [facility] [address] [phone] USAEosinophils/100 leukocytes in Blood by Automated count Ordered By: Shen Esparza on 78-60-1933Wrpwwdwtreg/100 WBC (Bld)2.6 %Normal. [facility] HospitalComment on above:Performed By: #### TSH3, A1C WTH eA, CMP, LIPID, [id number], CBC #### [facility] [address] [id number] USAErythrocyte distribution width [Ratio] by Automated count Ordered By: Shen Esparza on 31-65-9067Kosjicabxgi distribution width (RBC) [Ratio] 12.0 %Hrwcxx58.9-15.3FSalem Regional Medical CenterComment on above:Performed By: #### TSH3, A1C WTH eA, CMP, LIPID, [id number], CBC #### [facility] [address] [id number] USAErythrocytes [#/volume] in Blood by Automated countOrdered By: Shen Esparza on 46-15-8935RKY (Bld) [#/Vol]3.86 10*6/uLNormal3.60-5.00 [facility] HospitalComment on above:Performed By: #### TSH3, A1C WTH eA, CMP, LIPID, [id number], CBC #### [facility] [address] [phone] USAGlomerular filtration rate [Volume Rate/Area] in Serum, Plasma or Blood by CreatinineOrdered By: Shne Esparza on 45-55-4118Gcqnlqdthm filtration rate [Volume Rate/Area] in Serum, Plasma or Blood by Creatinine> 60.0 mL/MinOhiohealth Pickerington Methodist HospitalGlucose [Mass/volume] in Serum or Plasma Ordered By: Shen Esparza on 30-95-4478Itscuwf [Mass/Vol]89 mg/wPMneltw63-703 [facility] HospitalComment on above:ADA recommended reference rangeRandom Glucose Reference Range is dependent on time and content of last meal. Glucose of more than 200 mg/dL in a nonstressed, ambulatory subject supports the diagnosisof Diabetes Mellitus.Result Comment: Random Glucose Reference Range is dependent on time and content of last meal. Glucose of more than 200 mg/dL in a nonstressed, ambulatory subject supports the diagnosis of Diabetes Mellitus. ADA recommended reference rangePerformed By: #### TSH3, A1C WTH eA, CMP, LIPID, [id number], CBC #### [facility] [address] [phone] USAHematocrit [Volume Fraction] of Blood by Automated count Ordered By: Shen Esparza on 49-67-7966Giqjnwanye (Bld) [Volume fraction]34.9 % Btftyv00.0-46.4FSalem Regional Medical CenterComment on above:Performed By: #### TSH3, A1C WTH eA, CMP, LIPID, [id number], CBC #### [facility] [address] [place] [address] USAHemoglobin A1c/Hemoglobin.total in BloodOrdered By: Shen Esparza on 96-17-8127GfJ2r (Bld) [Mass fraction]4.7 %Normal4.3-5.6FSalem Regional Medical CenterComment on above:Increased risk for diabetes: 5.7 - 6.4diabetes: >6.4glycemic control for adults with diabetes: <7.0Result Comment: Increased risk for diabetes: 5.7 - 6.4 diabetes: >6.4 glycemic control for adults with diabetes: <7.0Performed By: #### TSH3, A1C WTH eA, CMP, LIPID, [id number], CBC #### [facility] [address] [place] [address] USAHemoglobin [Mass/volume] in BloodOrdered By: Shen Esparza on 66-62-5235Otcfsddwgr (Bld) [Mass/Vol]12.0 g/yIJofxpu33.8-15.4FSalem Regional Medical CenterComment on above:Performed By: #### TSH3, A1C WTH eA, CMP, LIPID, [id number], CBC #### [facility] [address] [place] [address] USALeukocytes [#/volume] corrected for nucleated erythrocytes in Blood by Automated counOrdered By: Shen Esparza on 28-21-7245TQJ corrected for nucl RBC Auto (Bld) [#/Vol]6.4 10*3/uL3.8-11.6FSalem Regional Medical Center Leukocytes [#/volume] in Blood by Automated countOrdered By: Shen Esparza on 79-02-8066RTJ (Bld) [#/Vol]6.4 10*3/uLNormal3.8-11.6FSalem Regional Medical CenterComment on above:Performed By: #### TSH3, A1C WTH eA, CMP, LIPID, [id number], CBC #### [facility] [address] [place] [address] USALipid Panelon 13-17-5160OEP Cholesterol,Txodnzbufq44 mg/dL Normal0-100The [facility] Physician GroupComment on above:Result Comment: LDL ATP III CLASSIFICATION LDL less than 100 mg/dL Optimal LDL 100-129 mg/dL Near or above optimal LDL 130-159 mg/dL Borderline high LDL 160-189 mg/dL High LDL greater than 189 mg/dL Very highPerformed By: #### TSH3, A1C WTH eA, CMP, LIPID, [id number], CBC #### [facility] [address] [place] [address] USATriglyceride w/Ndencn581 mg/dLHigh0-149The [facility] Physician GroupComment on above:Result Comment: TRIG ATP III CLASSIFICATION TRIG less than 150 mg/dL Normal TRIG 150-199 mg/dL Borderline high TRIG 200-500 mg/dL High TRIG greater than 500 mg/dL Very high Standard traceable to the Center for Disease Conrtrol and Prevention (CDC) test method.Performed By: #### TSH3, A1C WTH eA, CMP, LIPID, [id number], CBC #### [facility] [address] [place] [address] USAVLDL GBHVWPCDDVH31 mg/dLNormalThe [facility] Physician GroupComment on above:Performed By: #### TSH3, A1C WTH eA, CMP, LIPID, [id number], CBC #### [facility] [address] [place] [address] USALymphocytes [#/volume] in Blood by Automated countOrdered By: Shen Espraza on 80-70-9158Bcfgxssyall (Bld) [#/Vol]2.3 10*3/uLNormal1.00-4.8 [facility] HospitalComment on above:Performed By: #### TSH3, A1C WTH eA, CMP, LIPID, [id number], CBC #### [facility] [address] [phone] USALymphocytes/100 leukocytes in Blood by Automated count Ordered By: Shen Esparza on 16-50-6390Pvbcnfdowny/100 WBC (Bld)35.1 %Normal. [facility] HospitalComment on above:Performed By: #### TSH3, A1C WTH eA, CMP, LIPID, [id number], CBC #### [facility] [address] [phone] USAMCH [Entitic mass] by Automated countOrdered By: Shen Esparza on 66-24-9226SYF (RBC) [Entitic mass]31.0 sxRdtcba16.7-34.3FSalem Regional Medical CenterComment on above:Performed By: #### TSH3, A1C WTH eA, CMP, LIPID, [id number], CBC #### [facility] [address] [phone] USAHC Auto (RBC) [Mass/Vol]Ordered By: Shen Esparza on 29-79-7803GKYC (RBC) [Mass/Vol]34.3 g/dL32.0-35.0[facility] HospitalMCV [Entitic volume] by Automated countOrdered By: Shen Esparza on 79-96-5504MXG (RBC) [Entitic vol]90.4 gZOnamxu59-764LmakwfnkvOhiohealth Pickerington Methodist HospitalComment on above:Performed By: #### TSH3, A1C WTH eA, CMP, LIPID, [id number], CBC #### [facility] [address] [place] [address] USAMonocytes [#/volume] in Blood by Automated countOrdered By: Shen Esparza on 59-39-5157Cutydnnlo (Bld) [#/Vol]0.4 10*3/uLNormal0.0-0.8 [facility] HospitalComment on above:Performed By: #### TSH3, A1C WTH eA, CMP, LIPID, [id number], CBC #### [facility] [address] [place] [address] USAMonocytes/100 leukocytes in Blood by Automated count Ordered By: Shen Esparza on 91-88-1418Tcwnuteew/100 WBC (Bld)6.1 %Normal.[facility] HospitalComment on above:Performed By: #### TSH3, A1C WTH eA, CMP, LIPID, [id number], CBC #### [facility] [address] [place] [address] USANeutrophils [#/volume] in Blood by Automated countOrdered By: Shen Esparza on 50-08-0296Jyfmjdckoum (Bld) [#/Vol]3.6 10*3/uLNormal1.8-7.7 [facility] HospitalComment on above:Performed By: #### TSH3, A1C WTH eA, CMP, LIPID, [id number], CBC #### [facility] [address] [phone] USANeutrophils/100 leukocytes in Blood by Automated count Ordered By: Shen Esparza on 56-02-9997Ssjcyxswgeb/100 WBC (Bld)55.3 %Normal. [facility] HospitalComment on above:Performed By: #### TSH3, A1C WTH eA, CMP, LIPID, [id number], CBC #### [facility] [address] [phone] USANo Panel InformationOrdered By: Shen Esparza on 01-25-2025 Pharmacy Creatinine Clearance (ChemN/AFSalem Regional Medical CenterNucleated erythrocytes [Presence] in Blood by Automated countOrdered By: Shen Esparza on 94-11-3371Xcvzvmljq RBC Auto Ql (Bld)0.2 /100{WBC}0-0.5FSalem Regional Medical CenterPlatelet mean volume [Entitic volume] in Blood by Automated count Ordered By: Shen Esparza on 52-91-5459Hnlpzdjc mean volume (Bld) [Entitic vol]7.5 fLNormal6.3-10.7FSalem Regional Medical CenterComment on above:Performed By: #### TSH3, A1C WTH eA, CMP, LIPID, [id number], CBC #### [facility] [address] [phone] USAPlatelets [#/volume] in Blood by Automated countOrdered By: Shen Esparza on 02-42-0429Sgcirwymq (Bld) [#/Vol]270 10*3/rTPoupem027-465 [facility] HospitalComment on above:Performed By: #### TSH3, A1C WTH eA, CMP, LIPID, [id number], CBC #### [facility] [address] [phone] USAPotassium [Moles/volume] in Serum or PlasmaOrdered By: Shen Esparza on 38-18-7055Qtxxbokam [Moles/Vol]3.9 mmol/LNormal3.5-5.1FSalem Regional Medical CenterComment on above:Performed By: #### TSH3, A1C WTH eA, CMP, LIPID, [id number], CBC #### [facility] [address] [place] [address] USAProtein [Mass/volume] in Serum or PlasmaOrdered By: Shen Esparza on 20-33-4385Xxsgaxk [Mass/Vol]6.8 g/dLNormal6.4-8.9[facility] HospitalComment on above:Performed By: #### TSH3, A1C WTH eA, CMP, LIPID, [id number], CBC #### [facility] [address] [phone] USASerum globulin measurement by calculation (mass/volume) Ordered By: Shen Esparza on 60-32-7311Zdhpzuav (S) [Mass/Vol]2.7 g/dLNormal [facility] HospitalComment on above:Performed By: #### TSH3, A1C WTH eA, CMP, LIPID, [id number], CBC #### [facility] [address] [phone] USASerum or plasma albumin/globulin mass ratioOrdered By: Shen Esparza on 20-25-5181Dpbilqb/Globulin [Mass ratio]1.5 {ratio}NormalOhiohealth Pickerington Methodist HospitalComment on above:Performed By: #### TSH3, A1C WTH eA, CMP, LIPID, [id number], CBC #### [facility] [address] [phone] USASerum or plasma anion gap determinationOrdered By: Shen Esparza on 14-30-3696Xjsck gap [Moles/Vol]12.1 mmol/LNormal6.0-15.0[facility] HospitalComment on above:Performed By: #### TSH3, A1C WTH eA, CMP, LIPID, [id number], CBC #### [facility] [address] [phone] USASerum or plasma total cholesterol/high density lipoprotein (HDL) cholesterol mass ratOrdered By: Shen Esparza on 01-25-2025 Cholesterol.total/Cholesterol in HDL [Mass ratio]3.2 {ratio}Normal<5.0[facility] HospitalComment on above:Performed By: #### TSH3, A1C WTH eA, CMP, LIPID, [id number], CBC #### [facility] [address] [place] [address] USASodium [Moles/volume] in Serum or PlasmaOrdered By: Shen Esparza on 92-46-4343Nrodln [Moles/Vol]139 mmol/GZxaxii638-376ImhnubcylOhiohealth Pickerington Methodist HospitalComment on above:Performed By: #### TSH3, A1C WTH eA, CMP, LIPID, [id number], CBC #### [facility] [address] [place] [address] USAThyrotropin [Units/volume] in Serum or PlasmaOrdered By: Shen Esparza on 62-93-5385UOA Qn2.46 m[IU]/LNormal0.45-5.33[facility] HospitalComment on above:Performed By: #### TSH3, A1C WTH eA, CMP, LIPID, [id number], CBC #### [facility] [address] [place] [address] USATriglyceride [Mass/volume] in Serum or PlasmaOrdered By: Shen Esparza on 13-71-5136Ixugcfklpjqq [Mass/Vol]263 mg/dLHigh0-149[facility] HospitalComment on above:TRIG ATP III CLASSIFICATIONTRIG less than 150 mg/dL NormalTRIG 150-199 mg/dL Borderline highTRIG 200-500 mg/dL High TRIG greater than 500 mg/dL Very highStandard traceable to the Center for Disease Conrtrol and Prevention (CDC) test method.Urea nitrogen [Mass/volume] in Serum or PlasmaOrdered By: Shen Esparza on 35-12-2479Kzeu nitrogen [Mass/Vol]8 mg/dLNormal7-25[facility] HospitalComment on above:Performed By: #### TSH3, A1C WTH eA, CMP, LIPID, [id number], CBC #### [facility] [address] [place] [address] USAVitamin D 25 Hydroxy Totalon 94-99-0564Uomsoit D 25 Hydroxy Total15.1 ng/kUOys77-137Sfy [facility] Physician GroupComment on above: Result Comment: VITAMIN D STATUS 25(OH)VITAMIN D RANGE (ng/mL) Deficient <20 Insufficient 20 to <30 Sufficient 30 to 100 Reference: Margarita Slade, Graham ACUÑA, et al. Evaluation,treatment, and prevention of vitamin D deficiency; an Endocrine Society clinical practice guideline. JCEM. 2010; 96(7):191-. PERFORMED BY: [place] [address] PATHOLOGIST BRIDGE MAINTAINER TIEN SINGH M.D.Performed By: #### TSH3, A1C WTH eA, CMP, LIPID, [id number], CBC #### [facility] [address] [place] [address] USAVitamin D+Metabolites [Mass/volume] in Serum or Plasma Ordered By: Shen Esparza on 01-15-6441Hivnkpn D+Metabolites [Mass/Vol]15.1 ng/mL Hcr70-525HzkkmvrskOhiohealth Pickerington Methodist HospitalComment on above:VITAMIN D STATUS 25(OH)VITAMIN D RANGE (ng/mL) Deficient <20 Insufficient 20 to <05Fsvjuviidk44 to 100Reference: Margarita Slade, Graham ACUÑA, et al. Evaluation,treatment, and prevention of vitamin D deficiency; an Endocrine Society clinical practice guideline. JCEM. 2010; 96(7):191-.Urine Culture on 99-45-8896Ypdrbasq identified Cx Nom (U)>100,000 colonies/ml mixed bacterial skin contaminants 2 Days PERFORMED BY: [address] [address] PATHOLOGIST BRIDGE MAINTAINER TIEN SINGH M.D.NormalThe [facility] Physician GroupComment on above: Performed By: #### CUU #### [facility] [address] [place] [address] USAUrine cultureOrdered By: Lucio Goldstein on 01-08-2025 Bacteria identified Cx Nom (U)2 DaysOhiohealth Pickerington Methodist HospitalMM TOMOSYNTHESIS SCREENING BIon 00-14[address] [id number] Mammography Report Signed Patient: ANN MARIE POSADAS MR#: [id number] : 1980 Acct:[id number] Age/Sex: 44 / F ADM Date: 08/19/24 Loc: MAMMO Attending Dr: Vera Fatima Ordering Physician: Vera Fatima Results: Date of Service: 08/19/24 Follow Up: Procedure(s): MM tomosynthesis screening BI Accession Number(s): [id number] cc: Vera Fatima; Physician,Non-Staff M.DAdolfo Patient Name: ANN MARIE POSADAS MR#: [id number] : 1980 Exam Date: 08/19/2024 Ordering Doctor: [...] breast cancer at age 59. LOCATION: [facility] BREAST COMPOSITION: The breasts are extremely [...] Signed By: 08/19/24 1503 DD/ 1502 TD/TT: [employer]er:ARVINDHRadiology, Radiologist, - 08/19/2024 [address] [place] [id number] Mammography Report Signed Patient: ANN MARIE POSADAS MR#: [id number] : 1980 Acct:[id number] Age/Sex: 44 / F ADM Date: 08/19/24 Loc: MAMMO Attending Dr: Vera Fatima Ordering Physician: Vera Fatima Results: Date of Service: 08/19/24 Follow Up: Procedure(s): MM tomosynthesis screening BI Accession Number(s): [id number] cc: Vera Fatima; Physician,Non-Staff M.D. Patient Name: ANN MARIE POSADAS MR#: [id number] : 1980 Exam Date: 08/19/2024 Ordering Doctor: [...] breast cancer at age 59. LOCATION: [facility] BREAST COMPOSITION: The breasts are extremely [...] Signed By: 08/19/24 1503 DD/ 1502 TD/TT: [employer]er: ANU HealthcareRadiology Study observation (narrative)NOM HealthcareMM TOMOSYNTHESIS SCREENING BIOrdered By: Radiologist Radiology on 42-50-4904BSPX Healthcare Work Phone: IGP,APTIMA HPV,AGE GDLNon 73-94-8121GKF GDLN ACOG TESTINGNote.NOMS HealthcareComment on above:TESTS RESULT FLAG UNITS REF RANGE LAB Clinician Provided Cytology Information Source.............Cervix;Endocervix No. of containers..01 ThinPrep Vial Age Genevao ACOG Regina... 3065 01 FLAG LEGEND: L-Low Normal,H-High Normal,LL-Alert Low,HH-Alert High <-Panic Low,>-Panic High,A-Abnormal,AA-Critical Abnormal Performed at: 01 [address] [address] Shannon Marmolejo MD, HPV APTIMANegativeNegativeNOMS HealthcareComment on above:This nucleic acid amplification test detects fourteen high- risk HPV types (16,18,31,33,35,39,45,51,52,56,58,59,66,68) without differentiation. Performed at: = - [address] [id number] Plumbing Assembler: Shannon Marmolejo MD, Phone: [phone] Performed at: [address] [id number] Plumbing Assembler: Shannon Marmolejo MD, Phone: [phone] IGP, APTIMA HPV, RFX 16/18,45Note.NOMS HealthcareComment on above:TESTS RESULT FLAG UNITS REF RANGE LAB DIAGNOSIS: 02 NEGATIVE FOR INTRAEPITHELIAL LESION OR MALIGNANCY. Specimen adequacy: 02 Satisfactory for evaluation. Endocervical and/or squamous metaplastic cells (endocervical component) are present. Performed by: 02 Flori Burch, Director Of Mechanical Engineering ([facility]) . 02 Note: Note 02 The [...] <-Panic Low,>-Panic High,A-Abnormal,AA-Critical Abnormal Performed at: [address] [address] Shannon Marmolejo MD, BRUSH-SPATULA CERVIX ENDOCERVIX CLINISYNCNOMS HealthcareAlanine aminotransferase [Enzymatic activity/volume] in Serum or PlasmaOrdered By: Shen Esparza on 60-66-4141AUB [Catalytic activity/Vol] 19 U/L7-52[facility] HospitalAlbumin [Mass/volume] in Serum or Plasma by Bromocresol green (BCG) dye binding methoOrdered By: Shen Esparza on 81-34-3848Lzeoqii BCG dye [Mass/Vol]4.3 g/dL3.5-5.7FSalem Regional Medical CenterAlkaline phosphatase [Enzymatic activity/volume] in Serum or PlasmaOrdered By: Shen Esparza on 16-63-9000LSV [Catalytic activity/Vol]97 U/J97-681NqwudqjwpOhiohealth Pickerington Methodist HospitalAspartate aminotransferase [Enzymatic activity/volume] in Serum or PlasmaOrdered By: Shen Esparza on 50-32-3835XZK [Catalytic activity/Vol] 29 U/W30-69LmnasxzkaOhiohealth Pickerington Methodist HospitalBasophils Auto (Bld) [#/Vol]Ordered By: Shen Esparza on 03-47-7027Imksyesak (Bld) [#/Vol]0.1 10*3/uL0.0-0.2FSalem Regional Medical CenterBasophils/100 WBC Auto (Bld)Ordered By: Shen Esparza on 23-25-7650Jvqxhtxal/100 WBC (Bld)0.8 %.[facility] Bilirubin.total [Mass/volume] in Serum or PlasmaOrdered By: Shen Esparza on 72-30-2137Epydqsinb [Mass/Vol]0.5 mg/dL0.3-1.0[facility] Calcium [Mass/volume] in Serum or PlasmaOrdered By: Shen Esparza on 01-14-2024 Calcium [Mass/Vol]9.0 mg/dL8.6-10.3FSalem Regional Medical CenterCarbon dioxide, total [Moles/volume] in Serum or PlasmaOrdered By: Shen Esparza on 91-69-8770NW2 [Moles/Vol]27.6 mmol/L21.0-31.0[facility] Chloride [Moles/volume] in Serum or PlasmaOrdered By: Shen Esparza on 01-14-2024 Chloride [Moles/Vol]107 mmol/V29-562VftrfgrzsOhiohealth Pickerington Methodist HospitalCholesterol [Mass/volume] in Serum or PlasmaOrdered By: Shen Esparza on 92-74-8195Yypryhgsgwf [Mass/Vol]136 mg/nOHpc170-707BpocrifacOhiohealth Pickerington Methodist HospitalComment on above: Chol less than 200 mg/dl low riskChol 201-239 mg/dl borderline riskChol 240 mg/dl and greater high riskCholesterol in LDL Calc [Mass/Vol]Ordered By: Shen Esparza on 72-79-7786Bksjfnocoxy in LDL [Mass/Vol]50 mg/dL0-100[facility] HospitalComment on above:LDL ATP III CLASSIFICATIONLDL less than 100 mg/dL OptimalLDL 100-129 mg/dL Near or above abeezyjBRV663-242 mg/dL Borderline highLDL 160-189 mg/dL HighLDL greater than 189 mg/dL Very highCholesterol in VLDL Calc [Mass/Vol]Ordered By: Shen Esparza on 89-47-3402Qfzazxubzpi in VLDL [Mass/Vol]42 mg/dLOhiohealth Pickerington Methodist HospitalCreatinine [Mass/volume] in Serum or PlasmaOrdered By: Shen Esparza on 24-75-9924Owxejqgolc [Mass/Vol]0.55 mg/dLLow0.60-1.20[facility] HospitalEosinophils Auto (Bld) [#/Vol] Ordered By: Shen Esparza on 02-79-0538Tnoddrudmyl (Bld) [#/Vol]0.2 10*3/uL0.0-0.45 [facility] HospitalEosinophils/100 WBC Auto (Bld)Ordered By: Shen Esparza on 77-80-0361Ptccrmlfqlu/100 WBC (Bld)2.1 %.[facility] HospitalErythrocyte distribution width Auto (RBC) [Ratio]Ordered By: Shen Esparza on 59-55-6028Zgvmppbgvjh distribution width (RBC) [Ratio]11.9 %11.9-15.3FSalem Regional Medical CenterGlobulin Calc (S) [Mass/Vol]Ordered By: Shen Esparza on 97-39-7599Vwnsxshv (S) [Mass/Vol]2.4 g/dLOhiohealth Pickerington Methodist Hospital Glucose [Mass/volume] in Serum or PlasmaOrdered By: Shen Esparza on 01-14-2024 Glucose [Mass/Vol]94 mg/jM89-138LvgiypqreOhiohealth Pickerington Methodist HospitalComment on above:ADA recommended reference rangeRandom Glucose Reference Range is dependent on time and content of last meal. Glucose of more than 200 mg/dL in a nonstressed, ambulatory subject supports the diagnosisof Diabetes Mellitus. Hematocrit Auto (Bld) [Volume fraction]Ordered By: Shen Esparza on 01-14-2024 Hematocrit (Bld) [Volume fraction]39.0 %34.0-46.4FSalem Regional Medical CenterHemoglobin [Mass/volume] in BloodOrdered By: Shen Esparza on 01-14-2024 Hemoglobin (Bld) [Mass/Vol]13.7 g/dL11.8-15.4FSalem Regional Medical Center Leukocytes [#/volume] corrected for nucleated erythrocytes in Blood by Automated counOrdered By: Shen Esparza on 78-04-1217KKX corrected for nucl RBC Auto (Bld) [#/Vol]7.9 10*3/uL3.8-11.6FSalem Regional Medical CenterLymphocytes Auto (Bld) [#/Vol]Ordered By: Shen Esparza on 18-12-7484Uuprkwtcokh (Bld) [#/Vol]2.7 10*3/uL1.00-4.8[facility] HospitalLymphocytes/100 WBC Auto (Bld) Ordered By: Shen Esparza on 06-35-7784Isuiowgbyut/100 WBC (Bld)34.4 %.[facility] Auto (RBC) [Entitic mass]Ordered By: Shen Esparza on 58-91-3566KGT (RBC) [Entitic mass]32.4 pg24.7-34.3FSalem Regional Medical CenterMCHC Auto (RBC) [Mass/Vol]Ordered By: Shen Esparza on 74-79-3966CEBP (RBC) [Mass/Vol]35.2 g/xZYvll08.0-35.0[facility] HospitalMCV Auto (RBC) [Entitic vol]Ordered By: Shen Esparza on 93-46-9024PCZ (RBC) [Entitic vol]92.1 fL 80-100[facility] HospitalMonocytes Auto (Bld) [#/Vol]Ordered By: Shen Esparza on 10-73-6822Vnjvmxvuq (Bld) [#/Vol]0.4 10*3/uL0.0-0.8[facility] HospitalMonocytes/100 WBC Auto (Bld)Ordered By: Shen Esparza on 04-76-2624Bixcxwrss/100 WBC (Bld)5.1 %.[facility] Neutrophils Auto (Bld) [#/Vol]Ordered By: Shen Esparza on 21-00-3893Zbhpappovsi (Bld) [#/Vol]4.5 10*3/uL1.8-7.7FSalem Regional Medical CenterNeutrophils/100 WBC Auto (Bld)Ordered By: Shen Esparza on 82-36-4467Kuknjtagyii/100 WBC (Bld)57.6 %.[facility] HospitalNo Panel InformationOrdered By: Shen Esparza on 80-39-2931Wdkgwshah GFR (CKD-EPI)> 60.0 mL/MinOhiohealth Pickerington Methodist Hospital Pharmacy Creatinine Clearance (ChemN/AFSalem Regional Medical CenterNucleated erythrocytes [Presence] in Blood by Automated countOrdered By: Shen Esparza on 11-56-9082Ouzpyulsv RBC Auto Ql (Bld)0.1 /100{WBC}0-0.5FSalem Regional Medical CenterPlatelet mean volume Auto (Bld) [Entitic vol]Ordered By: Shen Esparza on 07-63-7931Hjfctmjt mean volume (Bld) [Entitic vol]8.1 fL6.3-10.7 [facility] HospitalPlatelets Auto (Bld) [#/Vol]Ordered By: Shen Esparza on 34-31-9824Ipaztdowe (Bld) [#/Vol]216 10*3/aI683-241IrlzlzmxyOhiohealth Pickerington Methodist HospitalPotassium [Moles/volume] in Serum or PlasmaOrdered By: Shen Esparza on 29-60-0795Huxksrczu [Moles/Vol]4.2 mmol/L3.5-5.1FSalem Regional Medical CenterProtein [Mass/volume] in Serum or PlasmaOrdered By: Shen Esparza on 04-71-8304Hnzcegt [Mass/Vol]6.7 g/dL6.4-8.9[facility] HospitalRBC Auto (Bld) [#/Vol]Ordered By: Shen Esparza on 62-15-3400TKT (Bld) [#/Vol]4.23 10*6/uL3.60-5.00UK Healthcareerum or plasma albumin/globulin mass ratioOrdered By: Shen Esparza on 89-02-1554Zmghwjp/Globulin [Mass ratio]1.8 {ratio}UK Healthcareerum or plasma anion gap determinationOrdered By: Shen Esparza on 88-88-3890Vcush gap [Moles/Vol]10.6 mmol/L6.0-15.0UK Healthcareerum or plasma high density lipoprotein (HDL) cholesterol measurementOrdered By: Shen Esparza on 01-14-2024 Cholesterol in HDL [Mass/Vol]43 mg/wL39-68LazizzwcoOhiohealth Pickerington Methodist Hospital Comment on above:HDL CHOL ATP-III CLASSIFICATION Cardiovascular RiskHDL > or equal to 60 mg/dL LOWHDL < 40 mg/dL HIGHSerum or plasma total cholesterol/high density lipoprotein (HDL) cholesterol mass ratOrdered By: Shen Esparza on 08-48-0377Efpjnhdkumv.total/Cholesterol in HDL [Mass ratio]3.2 {ratio}<5.0 UK Healthcareodium [Moles/volume] in Serum or PlasmaOrdered By: Shen Esparza on 03-29-7805Vjdulw [Moles/Vol]141 mmol/B105-412BfeqrutjiOhiohealth Pickerington Methodist HospitalThyrotropin [Units/volume] in Serum or PlasmaOrdered By: Shen Esparza on 43-44-9532NHF Qn2.25 m[IU]/L0.45-5.33[facility]ering[facility] Methodist HospitalTriglyceride [Mass/volume] in Serum or PlasmaOrdered By: Shen Esparza on 51-43-3686Nqyanrjjbkyk [Mass/Vol]213 mg/dLHigh0-149Ohio[facility]ering[facility] Methodist HospitalComment on above:TRIG ATP III CLASSIFICATIONTRIG less than 150 mg/dL NormalTRIG 150-199 mg/dL Borderline highTRIG 200-500 mg/dL High TRIG greater than 500 mg/dL Very highStandard traceable to the Center for Disease Conrtrol and Prevention (CDC) test method.Urea nitrogen [Mass/volume] in Serum or Plasma Ordered By: Shen Esparza on 45-79-2440Gyhv nitrogen [Mass/Vol]9 mg/dL7-25Ohio[facility] Pickerington Methodist HospitalVitamin D+Metabolites [Mass/volume] in Serum or Plasma Ordered By: Shen Esparza on 15-09-3763Jfegwop D+Metabolites [Mass/Vol]18.2 ng/mL Jpj25-607YygllwzrvOhiohealth Pickerington Methodist HospitalComment on above:VITAMIN D STATUS 25(OH)VITAMIN D RANGE (ng/mL) Deficient <20 Insufficient 20 to <64Qvtzeocvhh86 to 100Reference: Ela MF,Margarita RAMOS, Graham ACUÑA, et al. Evaluation,treatment, and prevention of vitamin D deficiency; an Endocrine Society clinical practice guideline. JCEM. 2010; 96(7):1911-30.WBC Auto (Bld) [#/Vol]Ordered By: Shen Esparza on 15-43-5851PGD (Bld) [#/Vol]7.9 10*3/uL 3.8-11.6FSalem Regional Medical CenterPAP ACOG PANEL 2: 30 to 65on 09-03-2021 ..NormalThe [facility] State East HospitalComment on above:Result Comment: Performed at: WB Performed By: #### [id number] #### [facility] [address] [address] [address] Carmelita Carlos Gdln ACOG Tafgvdy82-53GqliwsXyjAdena Pike Medical CenterComment on above:Performed By: #### [id number] #### [facility] [address] [address] [address] Carmelita BecerraDIAGNOSIS:CommentSumma Health Wadsworth - Rittman Medical CenterComhawthorn center on above: Result Comment: NEGATIVE FOR INTRAEPITHELIAL LESION OR MALIGNANCY. Performed at: WBPerformed By: #### [id number] #### [facility] [address] [address] [address] Carmelita BecerraHPV AptimaNegativeNormalNegativeThe [facility] East HospitalComhawthorn center on above:Result Comment: This nucleic acid amplification test detects fourteen high-risk HPV types (16,18,31,33,35,39,45,51,52,56,58,59,66,68) without differentiation. Performed at: =GPerformed By: #### [id number] #### [facility] [address] [place] [address] Dr. Carmelita BecerraMethodology:CommentCleveland Clinic Hillcrest Hospital on above: Result Comment: This liquid based ThinPrep(R) pap test was screened with the use of an image guided system. Performed at: WBPerformed By: #### [id number] #### [facility] [address] [place] [address] Dr. Carmelita BecerraNote:CommentCleveland Clinic Hillcrest Hospital on above:Result Comment: The Pap smear is a screening test designed to aid in the detection of premalignant and malignant conditions of the uterine cervix. It is not a diagnostic procedure and should not be used as the sole means of detecting cervical cancer. Both false-positive and false-negative reports do occur. . Performed at: WBPerformed By: #### [id number] #### [address] [address] Dr[address] Carmelita Simeonformed by:CommentCleveland Clinic Hillcrest Hospital on above: Result Comment: Chikis Sparks, Director Of Mechanical Engineering (ASCP) Performed at: WBPerformed By: #### [id number] #### [address] [address] Dr[address] Carmelita Schultz adequacy:CommentCleveland Clinic Hillcrest Hospital on above:Result Comment: Satisfactory for evaluation. Endocervical and/or squamous metaplastic cells (endocervical component) are present. Performed at: WBPerformed By: #### [id number] #### [facility] [address] [place] [address] Dr. Carmelita Onofre ACOG PANEL 2: 30 to 67on 08-25-2021..NormalZanesville City Hospital on above:Result Comment: Performed at: WBPerformed By: #### [id number] #### [facility] [address] [place] [address] Dr. Carmelita Carlos Gdln ACOG Gphnlzr48-53FppfdfVozGalion Hospital on above:Performed By: #### [id number] #### [facility] [address] [place] [address] Dr. Carmelita BecerraDIAGNOSIS:CommentCleveland Clinic Hillcrest Hospital on above: Result Comment: NEGATIVE FOR INTRAEPITHELIAL LESION OR MALIGNANCY. Performed at: WBPerformed By: #### [id number] #### [facility] [address] [place] [address] Dr. Carmelita BecerraHPV AptimaNegativeNormalNegativeThe [facility] on above:Result Comment: This nucleic acid amplification test detects fourteen high-risk HPV types (16,18,31,33,35,39,45,51,52,56,58,59,66,68) without differentiation. Performed at: =GPerformed By: #### [id number] #### [facility] [address] [place] [address] Dr. Carmelita BecerraMethodology:CommentCleveland Clinic Hillcrest Hospital on above: Result Comment: This liquid based ThinPrep(R) pap test was screened with the use of an image guided system. Performed at: WBPerformed By: #### [id number] #### [facility] [address] [place] [address] Dr. Carmelita BecerraNote:CommentCleveland Clinic Hillcrest Hospital on above:Result Comment: The Pap smear is a screening test designed to aid in the detection of premalignant and malignant conditions of the uterine cervix. It is not a diagnostic procedure and should not be used as the sole means of detecting cervical cancer. Both false-positive and false-negative reports do occur. . Performed at: WBPerformed By: #### [id number] #### [facility] [address] [place] [address] Dr. Carmelita BecerraPerformed by:CommentNoGalion Hospital on above: Result Comment: Chikis Sparks Director Of Mechanical Engineering (ASCP) Performed at: WBPerformed By: #### [id number] #### [address] [address] Dr[address] Carmelita BecerraSpecimen adequacy:CommentCleveland Clinic Hillcrest Hospital on above:Result Comment: Satisfactory for evaluation. Endocervical and/or squamous metaplastic cells (endocervical component) are present. Performed at: WBPerformed By: #### [id number] #### [facility] [address] [place] [address] Dr. Carmelita Becerra Vital Signs Date TimeVital SignValuePerforming KsptdyhayLexapffa26-31-1889 15:37-0400Body vamnsx90.05 kgCorey Deven DO Work Phone: [facility] CenterIblmpgqgxv38-75-2591 13:05-0400Body rybbzf730.56 cmShen Roys DO Work Phone: [facility]09-04-2025 13:05-0400 Body mass index (BMI) [Ratio]32.4 kg/i8VtcdhShen Roys DO Work Phone: [facility]09-04-2025 13:05-0400 Body juzhuc97.72 kgShen Roys DO Work Phone: [facility]09-04-2025 13:05-0400 Diastolic blood izcfdlzn65 mm[Hg]Shen Roys DO Work Phone: [facility]09-04-2025 13:05-0400 Heart rate89 /minShen Roys DO Work Phone: [facility]09-04-2025 13:05-0400 Respiratory rate18 /minShen Roys DO Work Phone: [facility]09-04-2025 13:05-0400 SaO2% (BldA) [Mass fraction]99 %Shen Roys DO Work Phone: [facility]09-04-2025 13:05-0400 Systolic blood qyvkdmux029 mm[Hg]Shen Roys DO Work Phone: [facility]08-25-2025 13:25-0400 Body faofhp99.55 kgCorey Deven DO Work Phone: [facility] CenterGmdmijrsjn79-65-7524 13:25-0400Diastolic blood skcpdkev60 mm[Hg]Beni Mooreo DO Work Phone: [facility] CenterMnorytzbvg27-46-2311 13:25-0400Systolic blood dqtrwied617 mm[Hg]Beni Mooreo DO Work Phone: [facility] CenterXkrbpbfyxe41-78-1237 12:53-0500Body zvjydw936.56 cmOhiohealth Pickerington Methodist Hospital02-24-2025 12:53-0500Body mass index (BMI) [Ratio]33.6 kg/h9IbwvtebmeOhiohealth Pickerington Methodist Hospital02-24-2025 12:53-0500Body drybvg88.9 kgOhiohealth Pickerington Methodist Hospital02-24-2025 12:53-0500Diastolic blood fmawtzpi57 mm[Hg][facility]02-24-2025 12:53-0500 Heart rate72 /[facility]02-24-2025 12:53-0500 Respiratory rate16 /[facility]02-24-2025 12:53-0500 SaO2% (BldA) [Mass fraction]98 %[facility]02-24-2025 12:53-0500Systolic blood lqcbwuot030 mm[Hg][facility] 07-15-2024 10:46-0500Body teixcn28 kgVera TUBBS Work Phone: [facility] CenterXwmikdrxhd60-72-6105 10:46-0500Diastolic blood thsdmjek62 mm[Hg]Vera TUBBS Work Phone: [facility] CenterSsdtssypdl23-59-3905 10:46-0500Systolic blood abofrvsw660 mm[Hg]Vera TUBBS Work Phone: [facility] CenterIkyazeprqx42-87-4795 13:10-0400Body .56 cmDO Shen Esparza Work Phone: [facility]08-22-2024 13:10-0400 Body mass index (BMI) [Ratio]74.9 kg/m2DO Shen Esparza Work Phone: [facility]08-22-2024 13:10-0400 Body ylxkbd758 kgDO Shen Esparza Work Phone: [facility]08-22-2024 13:10-0400 Diastolic blood ezrkofei61 mm[Hg]DO Shen Esparza Work Phone: [facility]08-22-2024 13:10-0400 Heart rate66 /minDO Shen Esparza Work Phone: [facility]08-22-2024 13:10-0400 Respiratory rate16 /minDO Shen Esparza Work Phone: [facility]08-22-2024 13:10-0400 SaO2% (BldA) [Mass fraction]98 %DO Shen Esparza Work Phone: [facility]08-22-2024 13:10-0400 Systolic blood dhsxefvb799 mm[Hg]DO Shen Esparza Work Phone: [facility]02-22-2024 13:36-0500 Body coveas543.56 cmOhiohealth Pickerington Methodist Hospital02-22-2024 13:36-0500Body mass index (BMI) [Ratio]33.7 kg/k3TzjysntyzOhiohealth Pickerington Methodist Hospital02-22-2024 13:36-0500Body qpqyrk14.35 kgOhiohealth Pickerington Methodist Hospital02-22-2024 13:36-0500Diastolic blood jmaajbtd15 mm[Hg][facility] 07-17-2023 13:36-0500Heart rate87 /minOhiohealth Pickerington Methodist Hospital 07-17-2023 13:36-5837RbG4% (BldA) [Mass fraction]98 %[facility]02-22-2024 13:36-0500Systolic blood luqdowke218 mm[Hg][facility]02-02-2024 13:40-0500Body wpoclb707.56 cmAjaimie Parra Other [facility]02-02-2024 13:40-0500 Body mass index (BMI) [Ratio]33.85 kg/p1JrwbyBonita Parra Other [employer] [place] Other 02-02-2024 13:40-0500Body vgfhtahzsta39.4 [degF]Bonita Parra Other [employer] [place] Other 02-02-2024 13:40-0500Body .45 kgBonita Parra Other [employer] [place] Other 02-02-2024 13:40-0500Body qwuzkc88.44 kgOhiohealth Pickerington [facility] Hospital02-02-2024 13:40-0500Diastolic blood czbnkwty79 mm[Hg] Bonita Parra Other [facility]02-02-2024 13:40-0500 Respiratory rate18 /minBonita Parra Other [employer] [place] Other 02-02-2024 13:40-4847UjK2% (BldA) [Mass fraction]99 % Bonita Parra Other [employer] [place] Other 02-02-2024 13:40-0500Systolic blood flqylhbq324 mm[Hg] Bonita Parra Other [facility]07-13-2023 12:30-0400 Body wgrfyp527.56 cmShen Esparza Other [employer] [place] Other 07-13-2023 12:30-0400Body mass index (BMI) [Ratio]33.3 kg/q5BvvzkShen Esparza Other [employer] Other 07-13-2023 12:30-0400Body drromy03 kgShen Esparza Other [employer] Other 07-13-2023 12:30-0400Diastolic blood gokquond15 mm[Hg] Shen Esparza Other [employer] Other 07-13-2023 12:30-0400Respiratory rate18 /minShen Esparza Other [employer] Other 07-13-2023 12:30-5144PrQ0% (BldA) [Mass fraction]98 % Shen Esparza Other [employer] Other 07-13-2023 12:30-0400Systolic blood barirvkp076 mm[Hg] Shen Esparza Other [employer] Other 05-02-2023 11:30-0400Body ymwbrt874.56 cmAjaimie Parra Other [employer] Other 05-02-2023 11:30-0400Body mass index (BMI) [Ratio] 32.61 kg/z5YteahBonita Parra Other [employer] Other 05-02-2023 11:30-0400Body klerzeldclf83.7 [degF]Bonita Parra Other [employer] Other 05-02-2023 11:30-0400Body .18 kgBonita Parra Other [employer] Other 05-02-2023 11:30-0400Respiratory rate18 /minBonita Parra Other [employer] Other 05-02-2023 11:30-2989OzQ2% (BldA) [Mass fraction]98 % Bonita Parra Other [employer] Other 01-12-2023 14:00-0500Body tanvkj342.56 cmShen Esparza Other [employer] Other 01-12-2023 14:00-0500Body mass index (BMI) [Ratio]33.3 kg/v8PneqqShen Esparza Other [employer] Other 01-12-2023 14:00-0500Body modxhy57 kgShen Esparza Other [employer] Other 01-12-2023 14:00-0500Diastolic blood pxxtoxiy62 mm[Hg] Shen Esparza Other [employer] Other 01-12-2023 14:00-0500Respiratory rate18 /minShen Esparza Other [employer] Other 01-12-2023 14:00-6795EtM2% (BldA) [Mass fraction]99 % Shen Esparza Other [employer] Other 01-12-2023 14:00-0500Systolic blood hnexvgid088 mm[Hg] Shen Esparza Other [employer] Other 06-27-2022 13:30-0400Body dllrqa322.56 cmShen Esparza Other [employer] Other 06-27-2022 13:30-0400Body mass index (BMI) [Ratio] 32.09 kg/n2JqxxaShen Esparza Other [employer] Other 06-27-2022 13:30-0400Body .82 kgShen Esparza Other [employer] Other 06-27-2022 13:30-0400Diastolic blood tbysilgv14 mm[Hg] Shenrolan Roymartinez Other [employer] Other 06-27-2022 13:30-0400Respiratory rate16 /minConnorrolan Esparza Other [employer] Other 06-27-2022 13:30-6465MfJ0% (BldA) [Mass fraction]99 % Shenrolan Roymartinez Other [employer] Other 06-27-2022 13:30-0400Systolic blood ynuqdfsh684 mm[Hg] Shen Isaias Other [employer] Other 12-27-2021 13:30-0500Body ppqihn876.56 cmShen Esparza Other [employer] Other 12-27-2021 13:30-0500Body mass index (BMI) [Ratio] 33.12 kg/j5Hmpvk Kirillmartinez Other [employer] Other 12-27-2021 13:30-0500Body bhkogslegyi44.2 [degF]Shen Isaias Other [employer] Other 12-27-2021 13:30-0500Body .54 kgConnorrolan Esparza Other [employer] Other 12-27-2021 13:30-0500Diastolic blood mm[Hg] Shen Esparza Other [employer] Other 12-27-2021 13:30-0500Respiratory rate18 /minShen Esparza Other [facility] [place] Other 12-27-2021 13:30-5378IjR2% (BldA) [Mass fraction]99 % Shen Esp[facility]za Other [facility] [place] Other 12-27-2021 13:30-0500Systolic blood frtsbxof079 mm[Hg] Shen Esparza Other [facility] [place] Other Encounters Encounter DateEncounter TypeCare ProviderFacilityStart: 03-24-2025 End: 29-81-9601Cyydti follow up visit related to original Geo TUBBS Work Phone: [facility]oms [facility] OBGYNComment on above:Encounter for postoperative careStart: 03-24-2025 End: 04-60-5820rigvjiwcpkFRC RAMEYNot AvailableStart: 03-24-2025 End: 76-43-6914Hyzeyp Kaleigh TUBBS Work Phone: [facility] [place] OBGYNStart: 03-24-2025 End: 35-56-0045Gzktgv Kaleigh TUBBS Work Phone: [facility] OBGYNStart: 03-11-2025 End: 31-70-7665Xmwymbiic Result EncounterCorey Deven DO Work Phone: noms External Department UnsolicitedStart: 03-11-2025 End: 43-05-3530Ddhigxetg Result EncounterCorey Deven DO Work Phone: noms External Department UnsolicitedStart: 03-11-2025 End: 56-82-3108iajhzyvahmHltwb Kuns DO Work Phone: -LAB [facility] [place] HospStart: 03-11-2025 End: 44-16-9287Dfehrtbk ReferredCorey Deven-LAB [facility] HospStart: 03-02-2025 End: 41-92-2730Fblvxyojo Result EncounterCorey Deven DO Work Phone: noms External Department UnsolicitedStart: 03-02-2025 End: 53-76-0961Eetezvety Result EncounterCorey Deven DO Work Phone: noms External Department UnsolicitedStart: 02-16-2025 End: 58-48-1312Dfivzubc ReferredCorey Deven-Lab [facility] Work Phone: Start: 02-16-2025 End: 60-12-6413Vrlxibo encounter procedureCorey Deven DO Work Phone: noms [facility]ath[facility]ie OBGYNComment on above:Pre-op examination; Menorrhagia with regular cycle; Abnormal uterine bleeding (AUB); Pelvic painStart: 02-16-2025 End: 72-02-3401Gsmoitvnwtydo examination doneCorey Deven DO Work Phone: noms HealthcareStart: 02-16-2025 End: 55-81-2541rjvjbwueliUyxaw Kuns DO Work Phone: [facility] Work Phone: Start: 02-16-2025 End: 95-17-0847Ixghotlm Result EncounterCorey Deven DO Work Phone: noms External Department UnsolicitedStart: 02-16-2025 End: 59-24-3135Kclaamnc Result EncounterCorey Deven DO Work Phone: noms External Department UnsolicitedStart: 01-27-2025 End: 58-29-0902xirxtzrfzaZcrjl Isaias DO Work Phone: [facility] Work Phone: Start: 01-27-2025 End: 24-82-5331Qlsgjyi encounter procedureConnorrolan Kirillmartinez Romeo DO-[facility] [place] Work Phone: Start: 01-25-2025 End: 76-70-5025Hkjqkxb encounter procedureShen Roymartinez Romeo DO-Lab [place] Work Phone: Start: 01-25-2025 End: 09-78-7592gnxcyamzwjCrert Kuns DO Work Phone: [facility] Work Phone: Start: 01-17-2025 End: 82-65-6159Ohpfze flowsheetCorey Deven DO Work Phone: [facility]BGYNStart: 01-17-2025 End: 90-96-0599Jtsmfh flowsheetCorey Deven DO Work Phone: [facility] [place] [facility]BGYNStart: 01-17-2025 End: 98-28-6427Qdxaqi outpatient visit 15 minutesCorey Deven DO Work Phone: [facility] [place] OBGYNComment on above:Menorrhagia with irregular cycle; Follow-up examStart: 01-17-2025 End: 23-69-2454fiaefdxkvmPYWJT FAZIONot AvailableStart: 01-08-2025 End: 01-25-5143ckpkasmpwoNutdt Kuns DO Work Phone: [facility] Work Phone: Start: 01-08-2025 End: 46-56-4462Lsyjvlia Andres Abdi DO-LAB [facility] [place] [facility] Start: 08-19-2024 End: 48-21-2567Dqatpsmoz Result EncounterVera TUBBS Work Phone: noms External Department UnsolicitedStart: 08-19-2024 End: 14-61-3329Ntbxavmra Result EncounterVera TUBBS Work Phone: [facility] External Department UnsolicitedStart: 07-19-2024 End: 04-99-0892lwhofzyifdCljckockp [facility] Work Phone: Start: 07-19-2024 End: 08-59-5867Wglfnis encounter procedureHolley Physician GroupZucker [facility] Work Phone: Start: 07-15-2024 End: 01-25-4032Feyqoz flowsheetVera TUBBS Work Phone: noms BCP OBStart: 07-15-2024 End: 45-46-1689Ikkrqk flowsheetVera TUBBS Work Phone: noms BCP OBStart: 07-15-2024 End: 05-62-5977Ifvcbxvos Result EncounterVera TUBBS Work Phone: noms External Department UnsolicitedStart: 07-15-2024 End: 43-79-6474ccovsmyhqqWUY Tia AvailableStart: 07-15-2024 End: 80-53-0157Eicgjls encounter procedureVera TUBBS Work Phone: n[facility] Work Phone: Start: 07-15-2024 End: 65-49-6963Gcpswfbc preventive med est patient 40-64yrsAmy Zoey TUBBS Work Phone: n[facility] OBComment on above:Well woman exam with routine gynecological exam; Breast cancer screening by mammogramStart: 01-15-2024 End: 91-19-9542xhtdrzceisWB Bryan Kuns Work Phone: [facility] Work Phone: Start: 01-15-2024 End: 51-25-8940Hvwfuya encounter procedureDO Shen Esparza Work Phone: [facility] Work Phone: Start: 01-14-2024 End: 89-18-3606dtgjtxfilaNM Shen Esparza Work Phone: [facility] Work Phone: Start: 01-14-2024 End: 60-13-9871Pkdopvr encounter procedureDO Shen Esparza Work Phone: [facility] [place] Work Phone: Start: 07-17-2023 End: 48-46-4578knqctpywjyIuknfipkd [facility] Work Phone: Start: 07-17-2023 End: 22-16-8835Zmartwj encounter procedureCaromont [facility] [place] Work Phone: Start: 06-27-2023 End: 46-18-2370lxezodqqnrSqyuq Keller Other [employer] Other Start: 48-06-7230Ebyggf outpatient visit 15 minutes [facility] ClydeStart: 06-27-2023 End: 62-75-1599Zeurclw encounter procedureHolley Physician Group-Start: 01-07-2023 End: 13-02-1756ynlwsuftlbTyyjw Kuns Other [employer] Other Start: 21-79-4802Cmbefctnz encounterBryrolan Nunez [facility] [place]Start: 12-05-2022 End: 19-35-8170mkdiaezxcmFqezd Kuns Other [employer] Other Start: 68-85-8520Ledgid outpatient visit 15 minutes Shen Nunez [facility] [place]Start: 09-24-2022 End: 53-90-2430nuuhwjqeebEzhgf Keller Other [employer] Other Start: 01-23-0587Exzydg outpatient visit 15 minutes [facility] ClydeStart: 60-74-1349Tomozjunr encounterBryan Kirills [facility] Urgent Care ClydeStart: 06-06-2022 End: 51-45-1303feqefnhyyuOchke Kirills Other [employer] Other Start: 46-68-4294Khikgp outpatient visit 15 minutes Shen KirillTiffanieG [facility] Medicine [place]Start: 05-14-2022 End: 47-18-4012hoidicrybeJthwb Kirills Other [employer] Other Start: 90-84-2875Ugxavgvyr encounterBryrolan EsparzaFPG [facility] [place]Start: 11-19-2021 End: 02-23-5474jlnemjdgfcAngeb Kirills Other [employer] Other Start: 94-60-0791Wflwqt outpatient visit 25 minutes Shen RoymartinezFP[facility] [place]Start: 11-16-2021 End: 69-26-0290stuxqbxitcImwld Kirills Other [employer] Other Start: 10-60-4687Naxzyrjkq encounterConnorrolan EsparzaFPG [facility] [place]Start: 10-09-2021 End: 10-74-1497thdhfnhfxnSzzxe Kirills Other [employer] Other Start: 54-00-4578Dyrrrkrce encounterBryrolan EsparzaFPG [facility] [place]Start: 08-21-2021 End: 70-14-8214bhcntoauhwGX JASON MONTANEZKFacility:H5Mvtci: 05-21-2021 End: 20-76-5649pevjxpbnxmSisms Kirills Other [employer] Other Start: 96-73-1685Ivocbh outpatient visit 15 minutes Shen RoymartinezG [facility] [place] Procedures DateProcedureProcedure DetailPerforming ClinicianStart: 23-29-6893Icfgrfyg screenCorey Deven DO Work Phone: Start: 75-39-4779RUW TYPE AND SCREENCorey Deven DO Work Phone: Start: 34-57-9305EUKLHL RED BLOOD CELLSCorey Deven DO Work Phone: Start: 83-54-7415IDR BASIC METABOLIC PANELCorey Deven DO Work Phone: Start: 70-58-2352CGX 12-LEADCorey Deven DO Work Phone: Start: 18-28-4447GRXFHWRVKKX BIOPSYCorey Deven DO Work Phone: Start: 84-46-9570Kwezn test visual color cmprsn methsCorey Deven DO Work Phone: Start: 12-47-7123UXGKBACIY REQUEST FOR LAB CORPCorey Deven DO Work Phone: Start: 90-26-2482Tfhgk cultureBryan Isaias DO Work Phone: Start: 05-36-4601VQ TOMOSYNTHESIS SCREENING Arlen TUBBS Work Phone: Start: 46-66-0236LUW,APTIMA HPV,AGE GDLNVera TUBBS Work Phone: Plan of Treatment DateCare ActivityDetailAuthorStart: 07-18-2025 End: 06-35-2972Alzzkjr encounter ynkgavhsv01/23/2026 2:00 PM EST Procedure Visit [facility] [address] [address] Beni Carvalho DO [address] [place] [address] [facility] OBGYNStart: 03-24-2025 End: 36-91-0586Puhychs encounter procedureNOMS Nathalie OBGYNComment on above: ArrivedStart: 02-16-2025 End: 88-99-4434Brhgmfc encounter ipffgarsw09/24/2025 3:30 PM EDT Procedure Visit NOMMartinez MAN [address] [place] [address] Beni Carvalho, DO [address] [place] [address] NOMMartinez [place] OBGYNStart: 02-16-2025 [facility]: 01-17-2025 End: 46-25-3311Foqqogo encounter zwlyuceih34/25/2025 1:20 PM EDT Office Visit NOMMartinez LEONARD [address] [place] [id number] Beni Carvalho, DO [address] [place] [address] ArrivedNOMS [place] OBGYNComment on above:ArrivedStart: 61-66-6682Gjmsnmnl identified in Urine by CultureUrine [facility] Hospitaltart: 03-95-2952Mfpad [facility]start: 07-15-2024 End: 38-44-9561XO Breast - bilateral ScreeningBilateral screening mammogram Imaging Routine Breast cancer screening by mammogram Expected: 07/15/2024 (Approximate), Expires: 09/12/2025[facility] Work Phone: comment on above:Expected: 07/15/2024 (Approximate), Expires: 09/12/2025omprehensive metabolic 1999 panel - Serum or PlasmaOhiohealth Pickerington Methodist HospitalComprehensive metabolic 1999 panel - Serum or Plasma [facility] HospitalTHIN PREP TIS PAP AND HR HPV DNATHIN PREP TIS PAP AND HR HPV DNA Pathology and Cytology Routine Well woman exam with routine gynecological exam Ordered: 07/15/2024[facility] CenterComment on above:Ordered: 07/15/2024Tissue examTissue exam Pathology and Cytology Routine Menorrhagia with regular cycle Abnormal uterine bleeding(AUB) Pelvic pain Ordered: 02/16/2025 [facility] Work Phone: comment on above:Ordered: 02/16/2025[facility] Immunizations Immunization DateImmunizationNotesCare ProviderFacilityNEGATED: Highlighted row has not occurred![id number], seasonal, injectablePatient ObjectionShen Isaias Other [facility] Payers DatePayer CategoryPayerPolicy [id number]-[id number] [id number] BCBS [place]ICAID [place] [id number] [id number] 2..[id number] 2..1.106263.3.579.2.593 [id number] 2..1.518828.3.579.2.763000-89-1426Gceelhv [id number] 2..1.238034.3.57[id number] 2..1.140212.3.57[id number] 2..1.912320.3.57[id number] of Defense ( and others) [facility] Fed-[id number] 2.16.840.1.269348.19 [id number] 2.16.840.1.3[id number] 2.16.840.1.873415.3.579.2.531 [id number] 2.16.840.1.1[id number] 2.16.840.1.236165.3.579.2.531 Social History DateTypeDetailFacilityUnknown if ever smokedDe Kalb [place] Other Sex [facility] At [facility] [place] Other Start: 06-19-2018 End: 68-53-1609Xuiumzv smoking status NHISSmoker (finding)[facility]: 25-71-4663Jgv [facility] HospitalT[facility]acc smoking status NHISTobacco smoking consumption [facility] CenterStart: 78-30-3463Oak assigned at birthNot on [facility] Start: 94-85-0852QftXmbsev (finding)[facility]: 24-47-6577Jvjeqsw smoking status NHISSmokes tobacco daily (finding)[facility]: 61-36-0247HiiXpkqmsVVDK Healthcare Clinical Notes 11-24-2011 to 03-24-2025 Note Date & TfslKmsdLgurqryd07-22-6157 History of Present illness Narrative* Skylar Bernstein NP - 03/24/2025 2:30 PM EDT Reason for Appointment: Patient ID: Ann Marie Posadas is a 45 y.o. female who presents for Post-op Visit Patient presents today for 2 Week Post Op Follow Up appointment. MEDICATIONS Current Outpatient Medications Medication Instructions [...] Date DILATION AND CURETTAGE OF UTERUS x2 ENDOMETRIAL ABLATION 03/11/2025 REVIEW OF SYSTEMS Review of Systems: Review of Systems Constitutional: Negative. HENT: Negative. Eyes: Negative. Respiratory: Negative. Cardiovascular: Negative. Gastrointestinal: Negative. Genitourinary: Negative. Musculoskeletal: Negative. Skin: Negative. Neurological: Negative. Psychiatric/Behavioral: Negative. All other systems reviewed and are [...] nursing note reviewed. Exam conducted with a automation manager present. Vitals: There is no height or weight on file to calculate BMI. BP: No LMP recorded. Assessment/Plan ICD-10-CM 1. Encounter for postoperative care Z48.89 Post Op Follow Up: Patient presents today for a postop follow up after having a D&C Hysteroscopy performed at [facility] with Dr. Carvalho. Pathology results was reviewed with the patient in great detail and all restrictions have been lifted. Follow Up: Patient is to return to the office for annual exam unless needed otherwise. Documented by Skylar Bernstein NP on behalf of: Skylar Bernstein, MSN, SERVICE OBSERVER CHIEF-BC documented in this encounterResearch Medical CenterFjoittzerd49-33-7368 History of Present illness Narrative* Pamela Marshall - 02/16/2025 3:30 PM EDTAssociated Order(s): Endometrial biopsy Post-Procedure Diagnose(s): Menorrhagia with regular cycle; Abnormal uterine bleeding (AUB) Reason for Appointment: Patient ID: Ann Marie Posadas is a 45 y.o. female who presents for Pre-op Visit and EMBX Patient presents today for a Endometrial Biopsy and Pre Op/Endometrial Biopsy appointment. Patient is scheduled to undergo Endometrial Ablation with Megan on 03-11-[address] Carvalho at [facility]. appointment. MEDICATIONS Current Outpatient Medications Medication Instructions [...] nursing note reviewed. Exam conducted with a automation manager present. Vitals: There is no height or weight on file to calculate BMI. BP: No LMP recorded. ASSESSMENT & PLAN Assessment/Plan Encounter Diagnosis: ICD-10-CM 1. Pre-op examination Z01.818 2. Menorrhagia with regular cycle N92.0 3. Abnormal uterine bleeding (AUB) N93.9 4. Pelvic pain R10.2 Endometrial biopsy Date/Time: 02/16/2025 4:07 PM Performed by: Beni Carvalho DO Authorized by: Beni Carvalho DO Consent: Consent obtained: verbal Consent [...] of menorrhagia, abnormal uterine bleeding and pelvic pain.I have discussed conservative management vs. surgical management with the patient in detail and patient desires surgical management at this time. Patient will undergo Endometrial Ablation with Megan on 03-11-25. Surgical consents were signed, mmc was reviewed, and patient is to proceed to [facility]. Follow Up: Patient is to follow up between 1-2 weeks post operative to assess proper healing and recovery fromprocedure. Documented by Mela Mcneil LPN on behalf of: Beni Carvalho DO documented in this encounterResearch Medical CenterKyhacnmgrg23-41-6402 Evaluation note* Author Jaki Calles [facility] HospitalAuthoredSeptember 2024 1:11pmSooner if needed, the ER if concerns,The above note written by Jaki Calles LPN acting as human recorder, note dictated by Dr. Shen Esparza [facility] Work Phone: [phone] 447-139908-25-2025 History of Present illness Narrative* Skylar Bernstein [...] nursing note reviewed. Exam conducted with a automation manager present. Vitals: There is no height or [...] by Skylar Bernstein NP on behalf of: Beni Carvalho DO documented in this encounterResearch Medical CenterKfzmajylin99-00-9133 History of Present illness Narrative* SULY Laboy - 07/15/2024 10:00 AM EST Reason for Appointment: Patient ID: Ann Marie Posadas is a 44 y.o. female who presents for [facility] Visit Patient presents today for Annual [...] nursing note reviewed. Exam conducted with a automation manager present. Vitals: There is no height or [...] behalf of: SULY Laboy documented in this encounterResearch Medical CenterQmptbpmwab86-35-1536 Evaluation note* Encounter Date Diagnosis Assessment Notes Treatment Notes Treatment Clinical Notes Jun, Acute bacterial conjunctivitis o f both eyes (ICD-10 - H10.33) Use eye [...] understanding and is agreeable to treatment plan marker.to Other 08-15-2023 Evaluation note* Encounter Date Diagnosis Assessment Notes Treatment Notes Treatment Clinical Notes Dec, Anxiety (ICD-10 - F41.9) marker.to Other 07-13-2023 Evaluation note* Encounter Date Diagnosis Assessment Notes Treatment Notes Treatment Clinical Notes Nov, Encounter for screen ing mammogram for malignant neoplasm of breast (ICD-10 - Z12.31) Baseline mammogram has been ordered for her today. She is looking for new CERTIFIED MEDICINE AIDE for her care. I have encourgaged patient to perform monthly SBE and report any abnormal findings Nov,Hypertension (ICD-10 - I10) Current lab results have been reviewed with patient today. All chemestries are within normal limits. No indication of DM. Renal function is good. Blood pressure is excellent in office today. She is tolerating medication well. No edema to report. No complaints of cough. I do want to keep patient on the current medications as ordered. Nov,nxiety (ICD-10 - F41.9) Anxiety is well controlled with current meds. No ill side effects to report. Blood count looks goodand her thyroid level was also within normal limits. I am keeping her on the same dose of medication as this is controlling her symptoms well. Nov,Nicotine dependence (ICD-10 - F17.200) At least 3 minutes was spent counseling patient regarding the importance of smoking cessation in regards to the patients overall health. Discussed risks of smoking and health benefits of quitting. Provided patient with all possible options for tobacco cessation. Encouraged patient to continue with their efforts. Nov,Hypertriglyceridemia (ICD-10 - E78.1) Lipid panel reviewed with patient today. In comparison to previous lab results her triglycerides have increased. The remainder of her lipid panel is stable. I have encouraged patient to double her dietary efforts, increase her activity as tolerated and maintain a healthy weight. I will continue to monitor this. Nov,Wheezing (ICD-10 - R06.2) Educated on appropriate usage of rescue inhaler marker.to Other 05-02-2023 Evaluation note* Encounter Date Diagnosis Assessment Notes Treatment Notes Treatment Clinical Notes September, Acute bacterial conjunctivitis o f right eye (ICD-10 - H10.31) Discussed diagnosis [...] understanding and is agreeable to treatment plan. marker.to Other 01-12-2023 Evaluation note* Encounter Date Diagnosis Assessment Notes Treatment Notes Treatment Clinical Notes May, Hypertension (ICD-10 - I10) Blood pressure is stable and looks great upon check in. She is to continue on the above medicationsas directed. Refills provided. May,Wheezing (ICD-10 - R06.2) Refill provided. Patient is to keep this on hand and use as needed. May,nxiety (ICD-10 - F41.9) Patient does well with the current dose of celexa and was encouraged to continue to use the Ativan very sparingly as she is now. She is to continue as directed. marker.to Other 12-20-2022 Evaluation note* Encounter Date Diagnosis Assessment Notes Treatment Notes Treatment Clinical Notes Apr, Anxiety (ICD-10 - F41.9) marker.to Other 06-27-2022 Evaluation note* Encounter Date Diagnosis Assessment Notes Treatment Notes Treatment Clinical Notes Oct, Hypertension (ICD-10 - I10) Blood pressure is stable on currentl regimen. She is only taking hctz every other day, therefore does not need to take potassium daily would recommend that she just make sure she eats a banana when taking diuretic. She verbalized understanding. Oct,Hypertriglyceridemia (ICD-10 - E78.1) Review of laboratory results with patient, we will continue to monitor. Encouraged her to monitor her diet and increase exercise as tolerated. Oct,ependent edema (ICD-10 - R60.9) Continue with diuretic every other day/as needed. She states that she gets swelling when on her feet at work. Oct,nxiety (ICD-10 - F41.9) Patient provided her bottle of ativan from 2017 and we disposed of this for her today. She was provided with a new prescription to keep on hand, she does not take often. marker.to Other 06-24-2022 Evaluation note* Encounter Date Diagnosis Assessment Notes Treatment Notes Treatment Clinical Notes Oct, Hypertension (ICD-10 - I10) marker.to Other 05-17-2022 Evaluation note* Encounter Date Diagnosis Assessment Notes Treatment Notes Treatment Clinical Notes September, Anxiety (ICD-10 - F41.9) marker.to Other 12-27-2021 Evaluation note* Encounter Date Diagnosis Assessment Notes Treatment Notes Treatment Clinical Notes Apr, Hypertension (ICD-10 - I10) Blood pressure is satisfactory, encouraged her to continue with medications as prescribed. Encouraged her to have her pressure take when she can, call with any concerns. Will see her back in 6 months. marker.to Other 07-01-2012 History general Narrative - Reported* Type Description Date Medical History hypertension Surgical HistoryD & C miscarriage/ Dr. CardozaImogkgk7914Orkhtwml HistoryD & C molar / Dr. Jasso/2011Surgical HistoryTubal Ligation - Dr. Padilla/2018 marker.to Other 07-01-2012 History general Narrative - Reported* Type Description Date Medical History hypertension Medical HistoryanxietySurgical HistoryD & C miscarriage/ Dr. CardozaJheucqc7331Nihkjuyv HistoryD & C molar / Dr. Jasso/2011Surgical HistoryTubal Ligation - Dr. Fuentes/2018Hospitalization Historychild marker.to Other Evaluation noteNo InformationNort [place] Other evaluation note* Diagnosis Onset Date Resolution Status Anxiety and depression acuteHyperlipidemiaacuteHypertensionacuteLymphadenopathy of right cervical regionacute [facility] Work Phone: Evaluation noteNo assessment information available [facility] Work Phone: Evaluation note* Author Marla Santacruz [facility] HospitalBetzyhoredMarco Antonio 2023 1:20pmThe above note written by ANDRES Deleon acting as human recorder, note dictated by Dr. Shen Esparza. [facility] Work Phone: Evaluation note* Diagnosis Well woman exam with routine gynecological exam Routine gynecological examination Breast cancer screening by mammogram documented [facility]* Diagnosis Onset Date Resolution Status Admit Date Anxiety and depression acuteFebruary 2024 12:21pmHypertensionacuteFebruary 2024 12:21pm [facility] Work Phone: Evaluation note* Diagnosis Menorrhagia with irregular cycle Follow-up exam Unspecified follow-up examination documented in this encounter [facility] HealthcareEvaluation note* Author Jaki Calles [facility] HospitalAuthoredSeptember 2024 1:11pmSooner if needed, the ER if concerns,The above note written by Jaki Calles LPN acting as human recorder, note dictated by Dr. Shen Esparza [facility] Work Phone: Evaluation note* Diagnosis Pre-op examination Menorrhagia with regular cycle Abnormal uterine bleeding (AUB) Pelvic pain documented in this encounter [facility]* Diagnosis Encounter for postoperative care documented in this encounter [facility] HealthcareReason for referral (narrative)No reason for referral information availableFirelands Regional Medical Center [facility] Work Phone: Summary Purpose Family History Relationship Condition Age at Onset Recorded Date/T mierlla father Alcoholism Unknown Family history of mental disorderUnknowngrandparentDeceasedUnknownNot Specified HypertensionUnknownsisterHypertensionUnknown Relationship Condition Age at Onset Recorded Date/T mirella father Alcoholism Unknown Family history of mental disorderUnknowngrandparentDeceasedUnknownmother HypertensionUnknownsisterHypertensionUnknown Relationship Condition Age at Onset Recorded Date/T mirella father Alcoholism Unknown Family history of mental disorderUnknownMalignant neoplasmUnknownFamily history of malignant neoplasm of prostateUnknowngrandparentDeceasedUnknownmother HypertensionUnknownsisterHypertensionUnknown Advance Directives Advance Directive Response Recorded Date/ Time Advance Directives No June 2:08pm Advance Directive Response Recorded Date/ Time Advance Directives No June 3:08pm Advance Directive Response Recorded Date/ Time Advance Directives No June 11:59am Advance Directive Response Recorded Date/ Time Advance Directives No June 10:59am Chief Complaint and Reason for Visit Chief Complaint Poss [facility], Expos ure To [facility] 6 MONTH FOLLOW UPReason for VisitAnxiety and depression Hyperlipidemia Hypertension Lymphadenopathy of right cervical region Chief Complaint E78.5 E55.9 review labs- per bpkReason for VisitAnxiety and depression Hyperlipidemia Hypertension Nicotine dependence Vitamin D deficiency Chief Complaint Admit Date 6 month f/u July 19, 2024 12:21pm Reason for Visit Admit Date Anxiety and depression July 19 12:21pm Hypertension July 19, 2024 12:21pm Chief Complaint Admit Date Unknown January 08, 2025 10 :27am Chief Complaint Admit Date Unknown January 08, 2025 10 :27am E55.9 F41.9 F32.A I10 E78.5 January d2024 6:37am 6 month f/u January 27, 2025 12:47pm Reason for Visit Admit Date Anxiety and depression January 27 12:47pm Hyperlipidemia January 27, 2025 12:47pm Hypertension January 27, 2025 12:47pm Chief Complaint Admit Date Unknown January 08, 2025 10 :27am E55.9 F41.9 F32.A I10 E78.5 January 6:37am 6 month f/u January 27, 2025 12:47pm menorrhagia February 16, 2025 3:33pm Unknown March 11, 2025 1 0:24am Additional Source Comments INFORMATION SOURCE (unrecogn ized section and content) DATE CREATED AUTHOR 09/04/2021 [facility] DATE CREATED AUTHOR AUTHOR'S ORGANIZ ATION 03/20/2025 [facility] DATE CREATED AUTHOR AUTHOR'S ORGANIZ ATION 03/26/2025 [facility] EPIC REASON FOR VISIT (unrecogniz ed section and content) ReasonCommentsWell Women VisitReasonCommentsER Uuroaw-uoEqgwfvDjispyhoJwz-my VisitEMBXReasonCommentsPost-op Visit Care Teams (unrecognized sec tion and [...] Start: January 15, 2024 End: January 15, 2024Team MemberRelationshipSpecialtyStart DateEnd Date Shen Esparza MD [address] [facility], [address] PCP - General07/15/24Team MemberRelationshipSpecialtyStart DateEnd Date Shen Esparza MD [facility] [address] PCP - General07/15/24 Team Status: Inactive Member Role Status Dates Shen Esparza DO Primary Care Provide r, Attending Provider Active Start: July 19, 2024 End: July 19, 2024Team MemberRelationshipSpecialtyStart DateEnd Date Shen Esparza MD [facility] [address] [facility], [facility] PCP - General07/15/24 Team Status: Inactive Member Role Status Dates Shen Esparza DO Primary Care Provider Active Sta rt: January 08, 2025 End: January 08, 2025Lucio Goldstein DOAttjalen ProviderActiveStart: January 08, 2025 End: January 08, 2025Team MemberRelationshipSpecialtyStart DateEnd Date Shen Esparza DO PCP - General07/15/24Team MemberRelationshipSpecialtyStart DateEnd Date Shen Esparza DO [facility]07/15/24 Team Status: Inactive Member Role Status Dates Shen Esparza DO Primary Care Provider Active Sta rt: January 25, 2025 End: January 25warner Esparza , DOAttending ProviderActiveStart: January 25, 2025 End: January 25, 2025 Team Status: Inactive Member Role Status Dates Shen Esparza DO Primary Care Provider Active Sta rt: January 27, 2025 End: January 27warner Esparza DOAttending ProviderActiveStart: January 27, 2025 End: January 27, 2025Team MemberRelationshipSpecialtyStart DateEnd Date Shen Esparza DO [facility]07/15/24 Team Status: Inactive Member Role Status Dates Beni Carvalho DO Attending Provider Active Start : February 16, 2025 End: February 16, 2025 Team Status: Inactive Member Role/Relationship Status Dates Shen Esparza DO Primary Care Provider Active Sta rt: January 08, 2025 End: January 08, 2025Lucio Goldstein DOAttending ProviderActiveStart: January 08, 2025 End: January 08, 2025 Team Status: Inactive Member Role/Relationship Status Benita Esparza DO Primary Care Provider Active Sta rt: January 25, 2025 End: January 25warner Esparza , DOAttending ProviderActiveStart: January 25, 2025 End: January 25, 2025 Team Status: Inactive Member Role/Relationship Status Dates Shen Esparza DO Primary Care Provider Active Sta rt: January 27, 2025 End: January 27warner Esparza DOAttending ProviderActiveStart: January 27, 2025 End: January 27, 2025 Team Status: Inactive Member Role/Relationship Status Benita Carvalho DO Attending Provider Active Start : February 16, 2025 End: February 16BARON Crowrimary Care ProviderActiveStart: February 16, 2025 End: February 16, 2025 Team Status: Inactive Member Role/Relationship Status Benita Carvalho DO Attending Provider Active Start : March 11, 2025 End: March 11, 2025Team MemberRelationshipSpecialtyStart DateEnd Date Shen Esparza DO PCP - General07/15/24 Goals (unrecognized section and content) Goals may [...] BE BASED ON THE PRIMARY CLINICAL RECORDS. [facility] [employer] [facility]. provides no warranty or guarantee of the accuracy or completeness of information in this document.
--- OUTSIDE RECORDS SUMMARY | 2025-04-14 14:41 | XMS_ITS | Encounter Summary ---
Author Organization [facility] Address [address] [place] [address] Care Team Providers Care Chemical Sprayer Name Role Phone Shen Esparza DO Primary Care Provider [phone] Encounter Details DateTypeDepartmentCare Team (Latest Contact Info)Uiognnvdios98/20/2025Telephone [facility] [address] [place] [address] Tiny Alberto LPN Social History Tobacco UseTypesPacks/DayYears UsedDateSmoking Tobacco: Never Assessed CommentsUnknownSex and Gender InformationValueDate RecordedSex Assigned at Not on fileLegal LnzNquctw67/15/2023 7:30 PM EDTGender IdentityNot on fileSexual OrientationNot on filedocumented as of this encounter Miscellaneous Notes * Telephone Encounter - Tiny Alberto LPN - 04/14/2025 10:50 AM EST 1045 spoke with Jaki at Dr. Esparza office to t documented in this encounter Plan of Treatment DateTypeDepartmentCare Team (Latest Contact Info)Sckznhfjvyt86/06/2026 2:20 PM ESTConsult [facility] [address] [place] [address] Beni Carvalho DO [address] [place], [place] [id number] 07/18/2025 2:00 PM ESTProcedure Visit [facility] [address] [place] [phone] Beni Carvalho DO [address] [place] [address] documented as of this encounter Visit Diagnoses Not on filedocumented in this encounter Care Teams Team MemberRelationshipSpecialtyStart DateEnd Date Shen Esparza DO [address] [place] [phone] PCP - General07/15/24documented as of this encounter
[2025-04-14 17:55] LABS: Iron 12.0 ug/dL (50.0-170.0); Percent Iron Saturation 2.4 %; Total Iron Binding Capacity 501.0 ug/dL (250.0-450.0)
[2025-04-14 18:09] LABS: Ferritin 5.0 ng/mL (8.0-252.0)
--- NOTE | 2025-04-15 13:45 | PM.HP ---
HPI H&P: HPI History of Present Illness Chief complaint: ABNORMAL LABS ANEMIA REQUIRING TRANSFUSION Narrative: Outpatient lab showed anemia with a hemoglobin of 6.9. Patient was sent to the emergency room for blood transfusion. No other reported signs or symptoms as per emergency room provider and nursing staff on the floor. Patient is having menorrhagia. She is scheduled to have hysterectomy next week as per report. Opioid HPI Opioid Management Most Recent Pain and Opioid Data: Last Pain Assessment 04/14/25, 20:11 Review of Systems ROS Status of ROS 10 or more systems reviewed and unremarkable except as noted in history and below PFSH [facility] Medical History (Updated 04/14/25 @ 14:59 by SULY Avendano) HSV infection ?B00.9 - Herpesviral infection, unspecified (ICD-10) Panic attacks ?F41.0 - Panic disorder [episodic paroxysmal anxiety] (ICD-10) Anxiety ?F41.9 - Anxiety disorder, unspecified (ICD-10) Abnormal uterine bleeding ?N93.9 - Abnormal uterine and vaginal bleeding, unspecified (ICD-10) Pelvic pain ?R10.20 - (ICD-10) Menorrhagia ?N92.0 - Excessive and frequent menstruation with regular cycle (ICD-10) Heartburn ?R12 - Heartburn (ICD-10) HTN (hypertension) ?I10 - Essential (primary) hypertension (ICD-10) Surgical History (Updated 03/02/25 @ 09:21 by Apoorva Dozier NP) History of dilation and curettage ?Z98.890 - Other specified postprocedural states (ICD-10) History of dilation and curettage ?Z98.890 - Other specified postprocedural states (ICD-10) H/O tubal ligation ?Z98.51 - Tubal ligation status (ICD-10) Family History (Updated 03/02/25 @ 09:21 by Apoorva Dozier NP) Other Family history of cancer Family history of diabetes mellitus Family history of hypertension Family history of renal failure Family history of stroke Social History (Updated 03/02/25 @ 09:18 by Apoorva Dozier NP) Within the past year, how often did you have a drink containing alcohol: 4 or more times a week Within the past year, how many standard drinks containing alcohol did you have on a typical day: 3 or 4 Smoking status: Current every day smoker What tobacco products do you use: cigarettes Cigarettes per day: 10 Years smoked: 20 Smoking pack-years: 10.00 Non-prescribed substance use: denies use Previous occupational history: [employer] Highest level of school completed/degree received: high school graduate Little interest or pleasure in doing things: not at all Feeling down, depressed, or hopeless: not at all Meds Home Medications and Allergies Home Medications ?Medication ?Instructions ?Recorded ?Confirmed ?Type amlodipine 10 mg tablet 10 mg PO QNOON 01/08/25 03/11/25 History irbesartan 150 mg tablet 150 mg PO QNOON 01/08/25 03/11/25 History acyclovir 800 mg tablet 800 mg PO BID PRN cold sores 03/02/25 03/11/25 History albuterol sulfate 90 mcg/actuation 2 inh inhalation Q6H PRN shortness 03/02/25 03/11/25 History aerosol inhaler of breath or wheezing cholecalciferol (vitamin D3) 50 50 mcg PO DAILY 03/02/25 03/11/25 History mcg (2,000 unit) capsule citalopram 20 mg tablet (Celexa) 20 mg PO QNOON 03/02/25 03/11/25 History hydrochlorothiazide 12.5 mg capsule 12.5 mg PO DAILY 03/02/25 03/11/25 History lorazepam 0.5 mg tablet (Ativan) 0.5 mg PO BID PRN anxiety 03/02/25 03/11/25 History Allergies Allergy/AdvReac Type Severity Reaction Status Date / Time No Known Drug Allergies Allergy Verified 04/14/25 12:11 Exam Narrative Exam Narrative: Exam was not completed as patient decided to leave AGAINST MEDICAL ADVICE prior to my encounter. Constitutional Vital Signs, click to edit/add: Last Vital Signs Temp 98.3 F 04/14/25 19:52 Pulse 84 04/14/25 19:52 Resp 18 04/14/25 19:52 BP 145/89 H 04/14/25 19:52 Pulse Ox 98 04/14/25 19:52 O2 Del Method Room Air 04/14/25 19:52 Results Labs Labs: Short CBC 04/14/25 Range/Units 13:39 WBC 8.1 (4.0-11.0) 10^3/uL Hgb 6.9 L* (12.0-16.0) g/dL Hct 22.3 L* (36.0-48.0) % Plt Count 248 (150-450) 10^3/uL BMP 04/14/25 13:39 Sodium 138 Potassium 3.4 L Chloride 103 Carbon Dioxide 24.8 BUN 10.0 Creatinine 0.52 L Glucose 93 Calcium 8.6 Assessment and Plan Assessment and Plan (1) Anemia requiring transfusions: Plan Anemia without hemodynamic instability. Likely caused by menorrhagia. Outpatient labs showed hemoglobin of 6.9. I have accepted to place patient under observation and proceed with blood transfusion as requested by her primary care doctor and [employer] physician Dr. Carvalho I requested iron study which came back consistent with severe iron deficiency. My plan was to start patient on iron infusion. My plan also was to recheck H&H after transfusion to determine if patient would need additional transfusion. Unfortunately, patient opted to sign AMA last evening despite nursing attempted to convince her to stay another day to monitor her condition, determine if she would need additional transfusion, needs IV iron infusion and to allow me to evaluate her the next morning. Patient understood the risk very well as explained by her nurse Sandy. Patient was adamant about going home AGAINST MEDICAL ADVICE. She signed the form and left the campus under stable condition. Unfortunately, patient left the hospital without proper discharge clearance, instructions, medications and follow-up. Patient understood by signing AMA, [place] myself or not responsible for any potential consequences that could result out of her decision to leave AM.
== END 2025-04-14 20:35 | disposition left against medical advice (07) ==
LOC: ER 14:59 → MS 16:20
PROVIDERS: Physician Assistant; Admitting Provider Internal Medicine; Emergency Provider Emergency Medicine; PCP Family Medicine; Visit Provider Internal Medicine
DX: D50.0 Iron deficiency anemia secondary to blood loss (chronic) (principal); Z53.29 Procedure and treatment not carried out because of patient's decision for other reasons; N92.0 Excessive and frequent menstruation with regular cycle; F17.210 Nicotine dependence, cigarettes, uncomplicated
CPT/HCPCS: 36415; 36430; 80048; 82607; 82728; 83540; 83550; 84703; 85014; 85018; 85025; 86850; 86900; 86901; 86923; 99285; G0378; P9016

== ENCOUNTER 2025-05-02 11:03 | Outpatient (RCR) | payer MEDICAID, SELFPAY ==
[2025-05-02] VITALS (8 sets, daily range): BP systolic 115–159; BP diastolic 67–96; PULSE 75–99; TEMP 36.1–36.7; O2SAT 96–99
[2025-05-02] MEDS: ACETAMINOPHEN 500 MG TABLET 1000 MG PO (11:52)
[2025-05-02] MEDS: DIPHENHYDRAMINE HCL 25 MG CAPSULE 50 MG PO (11:53)
--- NOTE | 2025-05-02 11:54 | PC.NURSE ---
Pt was only given 25mg Diphenhydramine HCL beacause she had to drive home
--- NOTE | 2025-05-02 14:29 | PC.NURSE ---
1305 1st unit of prbc's infused. 1325 2nd unit of prbc's initiated per protocol, patient tolerating well.
--- NOTE | 2025-05-02 15:48 | PC.NURSE ---
1540 2nd unit prbc's infused, tolerated well. NS flush began. Lungs clear posteriorly, heart tones strong and regular. denies any shortness of breath 1550 IV dc'd catheter intact, candy and amara applied to site. educated on removing coban when she arrives home. verbalized understanding
== END 2025-05-25 23:59 | disposition home or self-care (01) ==
LOC: INF 11:03
PROVIDERS: PCP Family Medicine; Visit Provider Obstetrics & Gynecology
DX: D50.0 Iron deficiency anemia secondary to blood loss (chronic) (principal); N92.1 Excessive and frequent menstruation with irregular cycle; Z01.812 Encounter for preprocedural laboratory examination; R10.20 Pelvic and perineal pain unspecified side; N94.10 Unspecified dyspareunia; N94.6 Dysmenorrhea, unspecified
CPT/HCPCS: 36415; 36430; 80048; 80076; 84443; 85025; 85610; 85730; 86850; 86900; 86901; 86923; P9016

== ENCOUNTER 2025-05-02 11:18 | Outpatient (OUT) | payer MEDICAID, SELFPAY ==
--- OUTSIDE RECORDS SUMMARY | 2025-04-25 19:16 | XMS_ITS | Continuity of Care Document ---
Author Organization [facility] Address [address] [place] [address] Phone Care Team Providers Care Laboratory Sampler Name Role Phone Shen Esparza DO Primary Care Provider [phone] Shen Esparza DO Attending Provider Beni Carvalho DO Attending Provider Mary Patterson PA-C Attending Provider Care Teams Patient Care Team Team Status: [...] Sta rt: April 12, 2025 End: April 12ryan Kuns , DOAttending ProviderActiveStart: April 12, 2025 End: April 12, 2025 Visit Care Team Team Status: Inactive Member Role/Relationship Status Dates Shen Esparza DO Primary Care Provider Active Sta rt: April 13, 2025 End: April 13warner Esparza , DOAttending ProviderActiveStart: April 13, 2025 End: April 13, 2025 Visit Care Team Team Status: Active Member Role/Relationship Status Dates Shen Esparza DO Primary Care Provider Active Sta rt: April 14, 2025 [facility] ProviderActiveStart: April 14, 2025 Visit Care Team Team Status: Inactive Member Role/Relationship Status Dates Shen Esparza DO Primary Care Provider Active Sta rt: April 18, 2025 End: April 18warner Esparza DOAttending ProviderActiveStart: April 18, 2025 End: April 18, 2025 Visit Care Team Team Status: Inactive Member Role/Relationship Status Dates Shen Esparza DO Primary Care Provider Active Sta rt: April 20, 2025 End: April 20warner Esparza , DOAttending ProviderActiveStart: April 20, 2025 End: April 20, 2025 Patient Care Team Team Status: Inactive Member Role/Relationship Status Dates Shen Esparza DO Primary Care Provider Active Sta rt: April 25, 2025 End: April 25warner Esparza DOAttending ProviderActiveStart: April 25, 2025 End: April 25, 2025 Chief Complaint and Reason for Visit Chief Complaint Admit Date 6 month f/u January 27, 2025 12:47pm menorrhagia February 16, 2025 3:33pm Unknown March 11, 2025 1 0:24am back pain about 2 weeks April 12, 025 2:39pm N92.0 D64.9 April 13, 2025 6:54am Reason for Visit Admit Date Anxiety and [...] Relationship Condition Age at Onset Recorded Date/T mriella father Alcoholism Unknown Family history of mental disorderUnknownMalignant neoplasmUnknownFamily history of malignant neoplasm of prostateUnknowngrandparentDeceasedUnknownmother HypertensionUnknownsisterHypertensionUnknown Problems Active Problems Problem Diagnosis/Recorded Date Onset Date Stat us Nicotine dependence January 15, 2024 12:09pm Unknown Active Lymphadenopathy of right cer vical region July 17, 2023 1:51pm Unknown Active Menorrhagia April 18, 2025 11:40am Unknown Active Hyperlipidemia July 17, 2023 1:50pm Unknown Active Iron deficiency anemia April 18, 2025 11:40am Unk nown Active Anxiety and depression July 17, 2023 [...] Taking; Provider: Isaias GomezknownCitalopram 20 mg tablet Ungttqhmcjir21SLMWKrmtz301Jejmftwk 11th, 2024 2:50pmSeptember 2024 12:22pm Hypertension Essential (primary) hypertensionFreeTextSi tablet Orally Once a day; Note: Source Status: Taking; Refills: 1; Qty: 90 Tablet; Provider: Isaias Romeo Hydrochlorothiazide 12.5 mg aepjngQbiwrceakwmy25.5MGPOEvery 48 myxln930Xviquilr2023 2:50pmFebruary 24th, 2025 12:53pmFreeTextSi tablet Orally every other day; Note: Source Status: Not-Taking\PRN; Provider: Isaias Colinbesartan 150 mg wpzostCdyzky942WAHRCtwvg968Jpsfcvpr 2023 2:51pmHypertension Essential (primary) hypertensionFreeTextSi tablet Orally Once a day; Note: Source Status: Taking; Provider: Isaias Gotti PUnknownAcyclovir 800 mg tablet Jasnqawovefz382SJEFPofov daily as needed for cold yhabo868Tobzkrd 2024 12:33pmJanuary 2024 9:05amFreeTextSi tablet Orally prn Twice a day; Note: Source Status: Not-Taking\PRNprn; Refills: 5; Provider: Isaias Romeo Acyclovir 800 mg tmnlhaGvcvqp918POIT.COMPLEX as needed for cold qtddb135Izfsats 2024 9:27ub063 mg orally 2 tabs twice a day PRN;UnknownAcyclovir 800 mg tabletDiscontinuedMGPOFebruary 2023 12:00amFebruary 2023 1:46pm FreeTextSi tablet Orally prn Twice a day; Note: Source Status: Not- Taking\PRNprn; Refills: 5; Provider: Isaias Colinbesartan 150 mg tablet Eimzrienfbef8CPOQWWqrxtXkjxdqld 2023 12:00amFebruary 2023 1:46pm FreeTextSi tablet Orally Once a day; Note: Source Status: Taking; Provider: Isaias Gotti PHydrochlorothiazide 12.5 mg bkxqwgNdmfwxzkisrd1YRXOPIhwgg 48 hours July 16, 2023 12:00amFebruary 2023 1:46pmFreeTextSi tablet Orally every other day; Note: Source Status: Not-Taking\PRN; Provider: Isaias tesfaye PAlbuterol Sulfate (Proair Hfa) 90 mcg/actuation HFA aerosol inhaler Uizjhimklgqx8OWZESKZTILTIKFEruvd 6 hoursFebruary 2023 12:00amFebruary 2023 2:18pmFreeTextSi puffs as needed Inhalation every 6 hrs; Note: Source Status: Not-Taking\PRN; Provider: Isaias Gotti PAmlodipine 10 mg tablet Aqyzzbyoatre4JVLKADrxxzHmlnakjv 2023 12:00amFebruary 2023 1:46pm FreeTextSi tablet Orally Once a day; Note: Source Status: Taking; Provider: Isaias Gotit PCitalopram 20 mg hartsrEbnzjhizirno1GMLORLzihxAseadpoh 2023 12:00amFebruary 2023 1:46pmFreeTextSi tablet Orally Once a day; Note: Source Status: Taking; Refills: 1; Qty: 90 Tablet; Provider: Isaias Romeo Acyclovir 800 mg edwhefTlnxzmxpgjgo404EWGPWrzyalgj 2023 1:45pmJanuary 2024 12:33pmFreeTextSi tablet Orally prn Twice a day; Note: Source Status: Not-Taking\PRNprn; Refills: 5; Provider: Isaias Gotti PAmlodipine 10 mg eoowviBzkxezzjfnht89CUFGLobydNwcnxzth 2023 1:46pmFebruary 2023 2:18pmFreeTextSi tablet Orally Once a day; Note: Source Status: Taking; Provider: Isaias Gotti PCitalopram 20 mg ogiqdaWvbroaxdibae43CJZCMcaucUkufgojy 2023 1:46pmFebruary 2023 2:18pmFreeTextSi tablet Orally Once a day; Note: Source Status: Taking; Refills: 1; Qty: 90 Tablet; Provider: Isaias Gotti PHydrochlorothiazide 12.5 mg oprprzJhsizopmysfc29.5MGPOEvery 48 hours July 17, 2023 1:46pmAugust 2023 12:33pmFreeTextSi tablet Orally every other day; Note: Source Status: Not-Taking\PRN; Provider: Isaias Romeo Irbesartan 150 mg zeegsqZcjlyughdvln528PHCLYlwibTsxantyz 2023 1:46pm July 17, 2023 2:18pmFreeTextSi tablet Orally Once a day; Note: Source Status: Taking; Provider: Isaias Gotti PLorazepam (Ativan) 0.5 mg tablet Discontinued0.5MGPODaily as needed for anxiety/ panic cnqpeng43196Rggyftwd 2023 12:00amFebruary 2023 2:24pmAnxiety and depression Anxiety disorder, unspecified Depression, unspecifiedCephalexin 500 mg jshgbqbOwtoxftxkior731AJXQWmyfn times gjgqx83360Uxnzshkv 2023 12:00amAugust 2023 12:04pmLymphadenopathy of right cervical region Localized enlarged lymph nodesAmlodipine 10 mg mvtalvJmkonrwuitxl41SKNCTbbtb440 July 17, 2023 2:14pmApril 05, 2024 2:51pmHypertension Essential (primary) hypertensionFreeTextSi tablet Orally Once a day; Note: Source Status: Taking; Provider: Isaias Gotti PIrbesartan 150 mg tablet Jmghipotuvmm480GPYEVtocr904Dbodftbt 2023 2:15pmApril 05, 2024 2:51pm Hypertension Essential (primary) hypertensionFreeTextSi tablet Orally Once a day; Note: Source Status: Taking; Provider: Isaias Gotti PCitalopram 20 mg tabletDiscontinued 19LTMNOoirz250Tplmgnyy 2023 2:15pmCounts Include [facility]2023 2:51pmHypertension Essential (primary) hypertensionFreeTextSi tablet Orally Once a day; Note: Source Status: Taking; Refills: 1; Qty: 90 Tablet; Provider: Isaias Romeo Albuterol Sulfate (Proair Hfa) 90 mcg/actuation HFA aerosol grhuxexXtejjl1MYOI INHALATIONEvery 6 hours6.72February 2023 2:16pmAsthma Unspecified asthma, uncomplicatedFreeTextSi puffs as needed Inhalation every 6 hrs; Note: Source Status: Not-Taking\PRN; Provider: Isaias Lawrence Lorazepam (Ativan) 0.5 mg tabletActive0.5MGPODaily as needed for anxiety/ panic yqjxapx17596Wkqfbelr 2023 2:24pmAnxiety and depression Anxiety disorder, unspecified Depression, unspecifiedUnknownHydrochlorothiazide 12.5 mg evbsicXjeqydokdwxu31.5 MGPOEvery 48 pojys116Ssudqw 2023 12:33pmNovember 2023 2:51pm FreeTextSi tablet Orally every other day; Note: Source Status: Not- Taking\PRN; Provider: Isaias Gotti PHydrochlorothiazide 12.5 mg lzzgwaQutvdm41.5MG POdaily as neededFebruary 2024 12:53pmUnknownCitalopram 20 mg tabletActive 05IKORVgfyn892Xiicoxqxi 2024 12:06pmHypertension Essential (primary) hypertensionUnknownTizanidine (Zanaflex) 4 mg capsuleActive4 MGPODaily at bedtime as needed for muscle bbezrdwnqy300Pekyatmp 18th, 2025 12:00amUnknown Immunizations Immunization Event Date Not Given Reason Dose Number Supervisor Mixing Lot Number Reason(s) Given Vaccine Information Statement (VIS) Detail Administration Location Trivalent Influenza Vaccine September 18, 2018 Patient R efused Relevant Diagnostic Tests and/or Laboratory Data Laboratory Results Test Collection Date/Time Result Date/Time Result Interpretation Reference Range Result Comment Performing Site Ferritin April 14, 2025 1:39pm April 14, 2025 1:39pm 5.0 ng/mL Below low normal 8.0-252.0 Iron SaturationApril 14, 2025 1:39pmApril 14, 2025 1:39pm2.4 %Human Chorionic Gonadotropin, QualApril 14, 2025 1:39pmApril 14, 2025 1:39pm NEGATIVENEGATIVEAnion GapApril 14, 2025 1:39pmApril 14, 2025 1:39pm 13.6Basophils # (Auto)April 14, 2025 1:39pmApril 14, 2025 1:39pm0.1 10 3/uL0.0-0.1Iron LevelApril 14, 2025 1:39pmApril 14, 2025 1:39pm12.0 ug/dLBelow low .0-170.0BUN/Creatinine RatioNoveer 2024 1:39pm April 14, 2025 1:39pm19.2Basophils (%) (Auto)April 14, 2025 1:39pm April 14, 2025 1:39pm0.6 %0.2-2.0Total Iron Binding CapacityApril 14, 2025 1:39pmApril 14, 2025 1:52bw605.0 ug/dLAbove high ohknwk214.0-450.0 Blood Urea NitrogenApril 14, 2025 1:39pmApril 14, 2025 1:39pm10.0 mg/dL7.0-18.0Eosinophils # (Auto)April 14, 2025 1:39pmApril 14, 2025 1:39pm0.1 10 3/uL0.0-0.7Calcium LevelApril 14, 2025 1:39pmApril 14, 2025 1:39pm8.6 mg/dL8.5-10.1Eosinophils (%) (Auto)April 14, 2025 1:39pm April 14, 2025 1:39pm1.1 %0.9-7.0Chloride LevelApril 14, 2025 1:39pm April 14, 2025 1:98nx603 mmol/A24-592FjxqxbvktdUemgmyfq 20th, 2025 1:39pm April 14, 2025 1:39pm22.3 %Below lower panic oydumg95.0-48.0RESULTS CALLED TO Mary PattersonPACarbon Dioxide LevelApril 14, 2025 1:39pmApril 14, 2025 1:39pm24.8 mmol/L21.0-32.0HemoglobinApril 14, 2025 1:39pm April 14, 2025 1:39pm6.9 g/dLBelow lower panic hcqitj37.0-16.0RESULTS CALLED TO Mary PattersonPACreatinineApril 14, 2025 1:39pmApril 14, 2025 1:39pm0.52 mg/dLBelow low normal0.55-1.02Immature Granulocyte # (Auto)April 14, 2025 1:39pmApril 14, 2025 1:39pm0.03 10 3/uL0.00-0.03 Estimated GFR ()April 14, 2025 1:39pmApril 14, 2025 1:39pm>60>=60 mL/min/1.73m 2Immature Granulocyte % (Auto)April 14, 2025 1:39pmApril 14, 2025 1:39pm0.4 %0.0-0.5Estimated GFR (Non- April 14, 2025 1:39pmApril 14, 2025 1:39pm>60>=60 mL/min/1.73m 2 Lymphocytes # (Auto)April 14, 2025 1:39pmApril 14, 2025 1:39pm2.4 10 3/uL1.2-3.8Glucose LevelApril 14, 2025 1:39pmApril 14, 2025 1:39pm93 mg/vB07-977Fdbdjypuevz (%) (Auto)April 14, 2025 1:39pmApril 14, 2025 1:39pm29.8 %20.5-60.0Potassium LevelApril 14, 2025 1:39pmApril 14, 2025 1:39pm3.4 mmol/LBelow low normal3.5-5.1Mean Corpuscular HemoglobinApril 14, 2025 1:39pmApril 14, 2025 1:39pm23.3 pgBelow low .7-34.0 Sodium LevelApril 14, 2025 1:39pmApril 14, 2025 1:07gh218 mmol/L 136-145Mean Corpuscular Hemoglobin ConcentApril 14, 2025 1:39pmApril 14, 2025 1:39pm30.9 g/dL29.9-35.2Mean Corpuscular VolumeApril 14, 2025 1:39pmApril 14, 2025 1:39pm75.3 fLBelow low kdevgb36.0-99.0Monocytes # (Auto)April 14, 2025 1:39pmApril 14, 2025 1:39pm0.4 10 3/uL0.3-0.8 Monocytes (%) (Auto)April 14, 2025 1:39pmApril 14, 2025 1:39pm4.3 % 1.7-12.0Mean Platelet VolumeApril 14, 2025 1:39pmApril 14, 2025 1:39pm 8.7 fLBelow low normal9.5-13.5Neutrophils # (Auto)April 14, 2025 1:39pm April 14, 2025 1:39pm5.2 10 3/uL1.4-6.5Neutrophils (%) (Auto)April 14, 2025 1:39pmNov2024 1:39pm63.8 %43.0-75.0Platelet CountApril 14, 2025 1:39pmApril 14, 2025 1:21bi180 10 3/pJ260-348Wzf Blood CountApril 14, 2025 1:39pmApril 14, 2025 1:39pm2.96 10 6/uLBelow low normal4.20-5.40 Red Cell Distribution WidthApril 14, 2025 1:39pmNov2024 1:39pm 14.8 %11.0-15.0Corrected White Blood CountApril 14, 2025 1:39pmApril 14, 2025 1:39pm8.1 10 3/uL4.0-11.0Corrected White Blood CountApril 13, 2025 6:55amNovember 2024 2:37pm5.9 10*3/uL3.8-11.6[facility] [id number] [address] [facility] [address]Uxlmjkfth White Blood CountApril 18, 2025 1:15pmNov2024 9:25pm7.3 10*3/uL3.8-11.6[facility] [id number] [address] [facility] [address]Famskehuq White Blood CountApril 20, 2025 12:58pmNovember 2024 1:54pm7.7 10*3/uL3.8-11.6[facility] [id number] [address] [facility] [address]Ijaxngjzj White Blood CountDecemb2024 6:49amDecember 2024 2:15pm7.0 10*3/uL3.8-11.6[facility] [id number] [address] [facility] [address]Njgxipzjczi WBC CountNov2024 6:55amNovember 2024 2:37pm5.9 10*3/uL3.8-11.6[facility] [id number] [address] [facility] [address]Snunxoxgdyp WBC CountNovember 2024 1:15pmNovember 2024 9:25pm7.3 10*3/uL3.8-11.6[facility] [id number] [address] [facility] [id number] WBC CountNovember 2024 12:58pmNovember 2024 1:54pm7.7 10*3/uL3.8-11.6[facility] [id number] [address] [facility] [address]Jrhtqgoniup WBC CountDecember 2024 6:49amDecember 2024 2:15pm7.0 10*3/uL3.8-11.6[facility] [id number] [address] [facility] [id number] Blood CountNovember 2024 6:55amNovember 2024 2:37pm3.20 10*6/uLBelow low normal3.60-5.00[facility] [id number] [address] [facility] [address]Hmd Blood CountNovember 2024 1:15pmNovember 2024 9:25pm3.65 10*6/uL3.60-5.00[facility] [id number] [address] [facility] [address]Ryq Blood CountNovember 2024 12:58pmNovember 2024 1:54pm3.54 10*6/uLBelow low normal3.60-5.00[facility] [id number] [address] [place] [address]Uji Blood CountDecember 2024 6:49amDecember 2024 2:15pm3.82 10*6/uL3.60-5.00[facility] [id number] [address] [facility] [address]WetqtbzgxlImpwkmab 2024 6:55amNovember 2024 2:37pm 7.5 g/dLBelow low .8-15.4FD[facility] [id number] [address] [facility] [address]OjlfivireyLpogctjy 2024 1:15pmNovember 2024 9:25pm 8.7 g/dLBelow low jglsam09.8-15.4FD[facility] [id number] [address] [facility] [address]AczfttxbgtNbovoyxq 2024 12:58pmNovember 2024 1:54pm 8.2 g/dLBelow low addvum32.8-15.4FD[facility] [id number] [address] [facility] 81347ZnxdqjcxsrIixkqjbg 2024 6:49amDecember 2024 2:15pm8.7 g/dLBelow low xbhfxo99.8-15.4FD[facility] [id number] [address] [facility] [address]BdjoopnytqWtoupjaj 2024 6:55amNovember 2024 2:37pm 23.6 %Below low qypppc53.0-46.4FD[facility] [id number] [address] [facility] [address]YiaxosnfpyXmtoheje 24th, 2025 1:15pmNovember 2024 9:25pm 26.4 %Below low xxfrqe98.0-46.4FD[facility] [id number] [address] [facility] [address]SglnvhcnbcPvtxxwry 2024 12:58pmNovember 2024 1:54pm 25.6 %Below low ifmnmn79.0-46.4FD[facility] [id number] [address] [facility] [address]LbwohbdnnqArhqmiwj 2024 6:49amDecember 2024 2:15pm 27.1 %Below low .0-46.4FD[facility] [id number] [address] [facility] [address]Ekaq Corpuscular VolumeNovember 2024 6:55amNovember 2024 2:37pm73.7 fLBelow low ywuvvk93-877HmvjrzwcjUniversity [facility] [id number] [address] [facility] [address]Jpxd Corpuscular VolumeNovember 2024 1:15pmNovember 2024 9:25pm72.4 fLBelow low sdkfyz92-865TnkiqzjnbUniversity [facility]als [facility] [id number] [address] [facility] [address]Jvtn Corpuscular VolumeNovember 2024 12:58pmNovember 2024 1:54pm72.3 fLBelow low gbpuyt89-585JcgbqkomeUniversity Hospitals [facility] [id number] [address] [facility] [address]Mlso Corpuscular VolumeDecember 2024 6:49amDecember 2024 2:15pm71.1 fLBelow low uewvbj23-624JqgefusoiUniversity [facility]als [facility] [id number] [address] [facility] [address]Jgfp Corpuscular HemoglobinNovember 2024 6:55amNovember 2024 2:37pm23.5 pgBelow low sxzehp03.7-34.3FD[facility] [id number] [address] [facility] [address]Pttc Corpuscular HemoglobinNovember 2024 1:15pmNovember 2024 9:25pm23.8 pgBelow low ropzsg77.7-34.3FD[facility] [id number] [address] [facility] [address]34Xsrp Corpuscular HemoglobinNovember 2024 12:58pmNovember 2024 1:54pm23.2 pgBelow low .7-34.3FD[facility] [id number] [address] [facility] 12879Babt Corpuscular HemoglobinDecember 2024 6:49amDecember 2024 2:15pm22.8 pgBelow low kwqbij62.7-34.3FD[facility] [id number] [address] [facility] [address]Qgrq Corpuscular Hemoglobin ConcentNovember 2024 6:55am April 13, 2025 2:37pm31.8 g/dLBelow low .0-35.0[facility] [id number] [address] [facility] [address]Rndm Corpuscular Hemoglobin ConcentNovember 2024 1:15pm April 18, 2025 9:25pm32.9 g/dL32.0-35.0[facility] [id number] [address] [place] [address]Oswu Corpuscular Hemoglobin ConcentNovember 2024 12:58pm April 20, 2025 1:54pm32.2 g/dL32.0-35.0[facility] [id number] [address] [place] [address] 46090Nzoe Corpuscular Hemoglobin ConcentDecemb2024 6:49am April 25, 2025 2:15pm32.1 g/dL32.0-35.0[facility] [id number] [address] [place] [address]18[address]Ptt Cell Distribution WidthNovember 2024 6:55amNovember 2024 2:37pm16.8 %Above high xujdxk41.9-15.3FD[facility] [id number] [address] [place] [address] 32702Jtg Cell Distribution WidthNovember 2024 1:15pmNovember 2024 9:25pm17.3 %Above high vsiorf62.9-15.3FD[facility] [id number] [address] [place] [address] 60770Txr Cell Distribution WidthNovember 2024 12:58pmNovember 2024 1:54pm17.7 %Above high uincag86.9-15.3FD[facility] [id number] [address] [place] [address] 69767Nma Cell Distribution WidthDecember 2024 6:49amDecember 2024 2:15pm17.7 %Above high ahijro81.9-15.3FD[facility] [id number] [address] [facility] [address]Feqtceiw CountNovember 2024 6:55amNovember 2024 2:23kd611 10*3/xV379-361IjbfwevewUniversity [facility]als [facility] [id number] [address] [facility] [address]Nebpffjp CountNovember 2024 1:15pmNovember 2024 9:45il696 10*3/rR248-288GhamqmejeUniversity Hospitals [facility] [id number] [address] [facility] [address]Leqchlin CountNovember 2024 12:58pmNovember 2024 1:36in941 10*3/pL693-580XmhyijczpUniversity Hospitals [facility] [id number] [address] [facility] [address]Rdcihsnj CountDecember 2024 6:49amDecember 2024 2:00on228 10*3/pJ732-222CozyzgrbiUniversity Hospitals [facility] [id number] [address] [facility] [address]Bzoa Platelet VolumeNovember 2024 6:55amNovember 2024 2:37pm7.2 fL6.3-10.7FDayton [facility] [id number] [address] [facility] [address]Bzgf Platelet VolumeNovember 2024 1:15pmNovember 2024 9:25pm7.3 fL6[address]3-10.[address] [place] [address] Ctr [id number] [address] [facility] [address]Kldu Platelet VolumeNovember 2024 12:58pmNovember 2024 1:54pm6.9 fL6.3-10.7FDay[facility] [id number] [address] [facility] [address]Amqh Platelet VolumeDecember 2024 6:49amDecember 2024 2:15pm7.1 fL6.3-10.7FD[facility] [id number] [address] [facility] [address]Bvnoegvhydh (%) (Auto)April 13, 2025 6:55amNovember 2024 2:37pm52.9 %.[facility] [id number] [address] [facility] [address]Nmdkssldlci (%) (Auto)April 18, 2025 1:15pmNovember 2024 9:25pm59.2 %.[facility] [id number] [address] [facility] [address]Mgjqrglbwpn (%) (Auto)April 20, 2025 12:58pmNovember 2024 1:54pm57.4 %.[facility] [id number] [address] [facility] [place] [address]Yduoflqhoci (%) (Auto)April 25, 2025 6:49amDecember 2024 2:15pm58.6 %.[facility] [id number] [address] [facility] [address]Blncputvall (%) (Auto)April 13, 2025 6:55amNovember 2024 2:37pm37.5 %.[facility] [id number] [address] [facility] [address]Vuxnkksmkam (%) (Auto)April 18, 2025 1:15pmNov2024 9:25pm33.4 %.[facility] [id number] [address] [facility] [address]Rrhonmuvqum (%) (Auto)April 20, 2025 12:58pmNov2024 1:54pm35.4 %.[facility] [id number] [address] [facility] [address]Vmgnbwoishf (%) (Auto)April 25, 2025 6:49amDecember 2024 2:15pm31.6 %.[facility] [id number] [address] [facility] [place] [address]Gfqtyjyii (%) (Auto)April 13, 2025 6:55amNovember 2024 2:37pm6.2 %.[facility] [id number] [address] [facility] [place] [address]Nulllhmar (%) (Auto)April 18, 2025 1:15pmNov2024 9:25pm4.6 %.[facility] [id number] [address] [facility] [place] [address]Jbicrhfnt (%) (Auto)April 20, 2025 12:58pmNovember 2024 1:54pm5.1 %.[facility] [id number] [address] [facility] [place] [address]Bjvodjwlh (%) (Auto)April 25, 2025 6:49amDecember 2024 2:15pm6.8 %.[facility] [id number] [address] [facility] [place] [address]Jjtvvmubkvz (%) (Auto)April 13, 2025 6:55amNovember 2024 2:37pm2.3 %.[facility] [id number] [address] [facility] [place] [address]Oxmlnukdacd (%) (Auto)April 18, 2025 1:15pmNovember 2024 9:25pm1.5 %.[facility] [id number] [address] [facility] [place] [address]Dmrgighjfgg (%) (Auto)April 20, 2025 12:58pmNov2024 1:54pm1.2 %.[facility] [id number] [address] [facility] [place] [address]Bxrskyymvhj (%) (Auto)April 25, 2025 6:49amDecember 2024 2:15pm2.1 %.[facility] [id number] [address] [facility] [place] [address]Vxvdqiwpe (%) (Auto)April 13, 2025 6:55amNovember 2024 2:37pm1.1 %.[facility] [id number] [address] [facility] [place] [address]Jdpiggkca (%) (Auto)April 18, 2025 1:15pmNovember 2024 9:25pm1.3 %.[facility] [id number] [address] [facility] [place] [address]Haxgehsqg (%) (Auto)April 20, 2025 12:58pmNovember 2024 1:54pm0.9 %.[facility] [id number] [address] [facility] [address]Iukoqxpvq (%) (Auto)April 25, 2025 6:49amDecember 2024 2:15pm0.9 %.[facility] [id number] [address] [facility] [address]Vzzkhgcam RBC Relative Count (auto)April 13, 2025 6:55am April 13, 2025 2:37pm0.1 /100{WBC}0-0.5FD[facility] [id number] [address] [facility] [address]Iprvufebn RBC Relative Count (auto)April 18, 2025 1:15pm April 18, 2025 9:25pm0.1 /100{WBC}0-0.5FD[facility]ton [facility] [facility] [id number] [address] [place] [address] 70922Xrudttfxy RBC Relative Count (auto)April 20, 2025 12:58pm April 20, 2025 1:54pm0.1 /100{WBC}0-0.5[facility] [id number] [address] [facility] 30249Ratzxscth RBC Relative Count (auto)April 25, 2025 6:49am April 25, 2025 2:15pm0.1 /100{WBC}0-0.5[facility] [id number] [address] [facility] 23463Aujkhhbbzeo # (Auto)April 13, 2025 6:55amNovember 2024 2:37pm3.1 10*3/uL1.8-7.7[facility] [id number] [address] [facility] 65144Cjiwnfisgvo # (Auto)April 18, 2025 1:15pmNovember 2024 9:25pm4.3 10*3/uL1.8-7.7[facility] [id number] [address] [facility] 31810Hcrwzcpofgn # (Auto)April 20, 2025 12:58pmNovember 2024 1:54pm4.4 10*3/uL1.8-7.7[facility] [id number] [address] [facility] 58094Oabafcbrkyg # (Auto)April 25, 2025 6:49amDecember 2024 2:15pm4.1 10*3/uL1.8-7.7[facility] [id number] [address] [facility] 12590Awpqexktuvi # (Auto)April 13, 2025 6:55amNovember 2024 2:37pm2.2 10*3/uL1.00-4.8[facility] [id number] [address] [facility] 97508Rfipsprxmis # (Auto)April 18, 2025 1:15pmNovember 2024 9:25pm2.4 10*3/uL1.00-4.8[facility] [id number] [address] [facility] 07266Quwisfeqxnw # (Auto)April 20, 2025 12:58pmNovember 2024 1:54pm2.7 10*3/uL1.00-4.8[facility] [id number] [address] [facility] 74636Awavgakvfwe # (Auto)April 25, 2025 6:49amDecember 2024 2:15pm2.2 10*3/uL1.00-4.8[facility] [id number] [address] [facility] 65041Fwyeisglj # (Auto)April 13, 2025 6:55amNovember 2024 2:37pm0.4 10*3/uL0.0-0.8[facility] [id number] [address] [facility] 89377Mxrkbxgwa # (Auto)April 18, 2025 1:15pmNovember 2024 9:25pm0.3 10*3/uL0.0-0.8[facility] [id number] [address] [facility] 91601Mmmyyxqyc # (Auto)April 20, 2025 12:58pmNovember 2024 1:54pm0.4 10*3/uL0.0-0.8[facility] [id number] [address] [facility] 59218Josyizdbz # (Auto)April 25, 2025 6:49amDecember 2024 2:15pm0.5 10*3/uL0.0-0.8[facility] [id number] [address] [facility] 85299Vcbxrbyqfyv # (Auto)April 13, 2025 6:55amNovember 2024 2:37pm0.1 10*3/uL0.0-0.45[facility] [id number] [address] [facility] 93738Ugvxsarevwr # (Auto)April 18, 2025 1:15pmNovember 2024 9:25pm0.1 10*3/uL0.0-0.45[facility] [id number] [address] [facility] 82181Jtcurmnkzlg # (Auto)April 20, 2025 12:58pmNovember 2024 1:54pm0.1 10*3/uL0.0-0.45[facility] [id number] [address] [facility] 36977Pvuqjleenla # (Auto)April 25, 2025 6:49amDecember 2024 2:15pm0.1 10*3/uL0.0-0.45[facility] [id number] [address] [facility] 17805Rypcuevng # (Auto)April 13, 2025 6:55amNovember 2024 2:37pm0.1 10*3/uL0.0-0.2[facility] [id number] [address] [facility] 94199Bsohewmox # (Auto)April 18, 2025 1:15pmNovember 2024 9:25pm0.1 10*3/uL0.0-0.2[facility] [id number] [address] [facility] 31380Crpzojxux # (Auto)April 20, 2025 12:58pmNovember 2024 1:54pm0.1 10*3/uL0.0-0.2[facility] [id number] [address] [facility] 17365Nzjyvnmsw # (Auto)April 25, 2025 6:49amDecember 2024 2:15pm0.1 10*3/uL0.0-0.2[facility] [id number] [address] [facility] 55242Elwyawh LevelNovember 2024 6:55amNovember 2024 2:41pm97 mg/sZ97-648BGX recommended reference rangeRandom Glucose Reference Range is dependent on time and content of last meal. Glucose of more than 200 mg/dL in a nonstressed, ambulatory subject supports the diagnosisof Diabetes Mellitus.[facility] [id number] [address] [facility] 00226Bguvwme LevelNov2024 1:15pmNov2024 9:32pm85 mg/bS21-474RLA recommended reference rangeRandom Glucose Reference Range is dependent on time and content of last meal. Glucose of more than 200 mg/dL in a nonstressed, ambulatory subject supports the diagnosisof Diabetes Mellitus.[facility] [id number] [address] [facility] 65276Imvidfe LevelNov2024 12:58pmNov2024 2:02pm96 mg/kX50-578KGJ recommended reference rangeRandom Glucose Reference Range is dependent on time and content of last meal. Glucose of more than 200 mg/dL in a nonstressed, ambulatory subject supports the diagnosisof Diabetes Mellitus.[facility] [id number] [address] [facility] 99701Thxbi Urea NitrogenNov2024 6:55amNovember 2024 2:41pm9 mg/dL7-[facility] [id number] [address] [facility] 16682Ncbjj Urea NitrogenNovember 2024 1:15pmNovember 2024 9:32pm11 mg/dL-[facility] [id number] [address] [facility] 40263Mrtko Urea NitrogenApril 20, 2025 12:58pmNov2024 2:02pm11 mg/dL7-25[facility] [id number] [address] [facility] 62508NfynjecnzsGpraahih 19th, 2025 6:55amNovember 2024 2:41pm 0.44 mg/dLBelow low normal0.60-1.20[facility] [id number] [address] [facility] 82342NwssalkpynRsyjkysn 24th, 2025 1:15pmApril 18, 2025 9:32pm 0.57 mg/dLBelow low normal0.60-1.20[facility] [id number] [address] [facility] 37232XmrybcixzeMlywrhxo 26th, 2025 12:58pmApril 20, 2025 2:02pm 0.55 mg/dLBelow low normal0.60-1.20[facility] [id number] [address] [facility] 99144Pawlxcwtv GFR (CKD-EPI)April 13, 2025 6:55amNove2024 2:41pm> 60.0 mL/MinUniversity Hospitals [facility] [id number] [address] [facility] 22536Hprdlyoob GFR (CKD-EPI)April 18, 2025 1:15pmApril 18, 2025 9:32pm> 60.0 mL/MinUniversity [facility]als [facility] [id number] [address] [facility] 26845Mftiageox GFR (CKD-EPI)April 20, 2025 12:58pmNov2024 2:02pm> 60.0 mL/MinUniversity [facility]als [facility] [id number] [address] [facility] 01996Xauhfu LevelApril 13, 2025 6:55amNovemb2024 2:37zf032 mmol/Q740-531QgxtfutacUniversity Hospitals [facility] [id number] [address] [facility] 93460Jxnexq LevelApril 18, 2025 1:15pmNovember 24th, 2025 9:53yt684 mmol/Q691-922TarnryrbyUniversity Hospitals Beachwood [facility] [id number] [address] [facility] 46078Kjarhj LevelNovember 2024 12:58pmNovember 2024 2:14eq171 mmol/LBelow low teghkf573-198AubbhgotdUniversity Hospitals [facility]wood [facility] [id number] [address] [facility] 73000Trqeppubg LevelNovember 2024 6:55amNovember 2024 2:41pm4.6 mmol/L3.5-5.1[facility] [id number] [address] [facility] 33203Gixagohuo LevelNovember 2024 1:15pmNovember 2024 9:32pm3.8 mmol/L3.5-5.1[facility] [id number] [address] [facility] 90227Srtplghvd LevelNovember 2024 12:58pmNovember 2024 2:02pm3.5 mmol/L3.5-5.1FD[facility] [id number] [address] [facility] 12053Iecsiipz LevelNovember 2024 6:55amNovember 2024 2:55qs254 mmol/LAbove high caiqjd86-106KxmptwesbUniversity Hospitals [facility]wood [facility] [id number] [address] [facility] 52210Serbegwz LevelNovember 2024 1:15pmNovember 2024 9:99sx739 mmol/D37-224OnxpkuqckUniversity Hospitals [facility] [id number] [address] [facility] 10787Nhlfvgyc LevelNovember 2024 12:58pmNovember 2024 2:66iq752 mmol/I17-698YfbubhkulUniversity Hospitals [facility] [id number] [address] [facility] 05390Ksjges Dioxide LevelNovember 2024 6:55amNovember 2024 2:41pm26.0 mmol/L21.0-31.0[facility] [id number] [address] [facility] 19729Cpdmco Dioxide LevelNovember 2024 1:15pmApril 18, 2025 9:32pm23.0 mmol/L21.0-31.0[facility] [id number] [address] [facility] 87475Inbtug Dioxide LevelNov2024 12:58pmNovember 2024 2:02pm24.3 mmol/L21.0-31.0[facility] [id number] [address] [facility] 52529Snpvw GapApril 13, 2025 6:55amNovember 2024 2:41pm 10.6 mEq/L6.0-15.0[facility] [id number] [address] [facility] 78521Cxkjv GapApril 18, 2025 1:15pmNov2024 9:32pm 13.8 mEq/L6.0-15.0[facility] [id number] [address] [facility] 55625Saewo GapApril 20, 2025 12:58pmNov2024 2:02pm 12.2 mEq/L6.0-15.0[facility] [id number] [address] [facility] 87792Bfgtltb LevelNov2024 6:55amNoveer 2024 2:41pm8.7 mg/dL8.6-10.3FD[facility] [id number] [address] [facility] 52825Hdzubcm LevelNov2024 1:15pmNov2024 9:32pm8.8 mg/dL8.6-10.3[facility] [id number] [address] [facility] 25898Eadpqks LevelNovember 2024 12:58pmNovember 2024 2:02pm8.9 mg/dL8.6-10.3FD[facility] [id number] [address] [facility] 38430Qobge ProteinNovember 2024 6:55amNovember 2024 2:41pm6.0 g/dLBelow low normal6.4-8.9[facility] [id number] [address] [facility] 10345Mpyhs ProteinNovember 2024 1:15pmNovember 2024 9:32pm6.8 g/dL6.4-8.9[facility] [id number] [address] [facility] 01827Fzfot ProteinNovember 2024 12:58pmNovember 2024 2:02pm7.0 g/dL6.4-8.9[facility] [id number] [address] [facility] 58872UqmqwzqOgrzzwib 2024 6:55amNovember 2024 2:41pm3.7 g/dL3.5-5.7FD[facility] [id number] [address] [facility] 58360BtufquiCzugcbuq 2024 1:15pmNovember 2024 9:32pm4.2 g/dL3.5-5.7[facility] [id number] [address] [facility] 56498BlvocldUutqkxvw 2024 12:58pmNovember 2024 2:02pm4.3 g/dL3.5-5.7[facility] [id number] [address] [facility] 12652IvazfpotQulwbxwr 2024 6:55amNovember 2024 2:41pm2.3 g/dLUniversity Hospitals [facility] [id number] [address] [facility] 59317TmurwjtvCiaxsykh 2024 1:15pmNovember 2024 9:32pm2.6 g/dLUniversity Hospitals [facility] [id number] [address] [facility] 06119SqpalcdrGpvzxisa 2024 12:58pmNovember 2024 2:02pm 2.7 g/dLUniversity Hospitals [facility] [id number] [address] [facility] 26779Qzrfsjk/Globulin RatioNovember 2024 6:55amNovember 2024 2:41pm1.6FD[facility] [id number] [address] [facility] 82674Aoswtvt/Globulin RatioNovember 2024 1:15pmNovember 2024 9:32pm1.6FD[facility] [id number] [address] [facility] 01731Bgegvoa/Globulin RatioNovember 2024 12:58pmNovember 2024 2:02pm1.6FD[facility] [id number] [address] [facility] 20663Wbhuw BilirubinNovember 2024 6:55amNovember 2024 2:41pm0.2 mg/dLBelow low normal0.3-1.0[facility] [id number] [address] [facility] 54296Zjujw BilirubinNovember 2024 1:15pmNovember 2024 9:32pm0.3 mg/dL0.3-1.0[facility] [id number] [address] [facility] 63637Fnjnt BilirubinNovember 2024 12:58pmNovember 2024 2:02pm0.3 mg/dL0.3-1.0[facility] [id number] [address] [facility] 21092Gipziptil Amino Transf (AST/SGOT)April 13, 2025 6:55am April 13, 2025 2:41pm20 U/T36-70TrhiyuzcdUniversity Hospitals [facility] [id number] [address] [facility] 41455Zznzvmkkc Amino Transf (AST/SGOT)April 18, 2025 1:15pm April 18, 2025 9:32pm20 U/F60-29RqgriegjpUniversity Hospitals [facility] [id number] [address] [facility] 81188Btmuwicyy Amino Transf (AST/SGOT)April 20, 2025 12:58pm April 20, 2025 2:02pm17 U/N37-78PpndlmozhUniversity Hospitals [facility] [id number] [address] [facility] 27392Ndffwip Aminotransferase (ALT/SGPT)April 13, 2025 6:55am April 13, 2025 2:41pm12 U/L7-52[facility] [id number] [address] [facility] 17315Goozlkt Aminotransferase (ALT/SGPT)April 18, 2025 1:15pm April 18, 2025 9:32pm13 U/L7-52[facility] [id number] [address] [facility] 27032Znntiyc Aminotransferase (ALT/SGPT)April 20, 2025 12:58pm April 20, 2025 2:02pm13 U/L7-52[facility] [id number] [address] [facility] 10990Ryqcrbys PhosphataseNovember 2024 6:55amNovember 2024 2:41pm81 U/U48-022CjcbncnxeUniversity Hospitals [facility] [id number] [address] [facility] 71724Djhuesjz PhosphataseNovember 2024 1:15pmNovember 2024 9:32pm93 U/B84-056UaigpsjgvUniversity Hospitals [facility] [id number] [address] [place] [address] 50127Jcivzdrv PhosphataseNov2024 12:58pmNovember 2024 2:02pm88 U/P86-855DlxbilbkeUniversity Hospitals [facility] [id number] [address] [facility] 49722Nwjs LevelNovember 2024 1:15pmNovember 2024 9:32pm 15 ug/dLBelow low ldvsuw27-977AydkhlijwUniversity Hospitals [facility] [id number] [address] [place] [address] 82870Xvad LevelNovember 2024 12:58pmNovember 2024 2:02pm 18 ug/dLBelow low ehnacq63-576DadadsejiUniversity Hospitals [facility] [id number] [address] [place] [address] 15299Zlsl LevelDecember 2024 6:49amDecember 2024 2:36pm17 ug/dLBelow low letcxo66-924KjzpwogqhUniversity Hospitals [facility] [id number] [address] [place] [address] 78532Idktq Iron Binding CapacityNovember 2024 1:15pmNovember 2024 9:59oo145 ug/dLAbove high yjcajv786-148RpnpckffjUniversity Hospitals [facility] [id number] [address] [facility] 31481Bpryp Iron Binding CapacityNovember 2024 12:58pmNovember 2024 2:20kw620 ug/dLAbove high zkodxv207-395ScyjqrvjzUniversity Hospitals [facility] [id number] [address] [facility] 68225Ugmeq Iron Binding CapacityDecember 2024 6:49amDecember 2024 2:35go788 ug/dLAbove high vuvxsk763-949AiesysjelUniversity Hospitals [facility] [id number] [address] [facility] 85614Pols SaturationNovember 2024 1:15pmNovember 2024 9:32pm2.5 %Below low azhgvf31-65TdvmttwyuUniversity Hospitals [facility] [id number] [address] [facility] 00445Nuuh SaturationNovember 2024 12:58pmNovember 2024 2:02pm3.1 %Below low iikkel93-88KkzqsmaplUniversity Hospitals [facility] [id number] [address] [facility] 70013Znok SaturationDecember 2024 6:49amDecember 2024 2:36pm2.9 %Below low ueedsq63-02WpygafjogUniversity Hospitals [facility] [id number] [address] [facility] 09629QulanjbukilQriktiys 24th, 2025 1:15pmNovember 2024 9:32pm 422 mg/dLAbove high ytkznb449-100QijxapynnUniversity Hospitals [facility] [id number] [address] [facility] 14401ExtcjbuqpjtZnughgzy 2024 12:58pmNovember 2024 2:76xe860 mg/dLAbove high krzoar715-459SvlsmgzgyUniversity [facility]als [facility] [id number] [address] [facility] 72530RddwfzmvztnXxhtpfzw 2024 6:49amDecember 2024 2:36pm 422 mg/dLAbove high jzarrg247-865CmqcjskhyUniversity Hospitals [facility] [id number] [address] [facility] 88052TevddjchJsxpbatl 2024 1:15pmNov2024 9:51pm3.9 ng/mLBelow low emcdrj86.0-306.8[facility] [id number] [address] [facility] 79912SzsvjyqsUwsvdxyb 2024 12:58pmNov2024 2:22pm 4.3 ng/mLBelow low .0-306.8[facility] [id number] [address] [facility] 29949FekcxirnKniajuui 2024 6:49amDecember 2024 2:56pm4.0 ng/mLBelow low rjebja92.0-306.8[facility] [id number] [address] [facility] 80584Eaoxprgh Creatinine Clearance (ChemNovember 2024 6:55am April 13, 2025 2:41pmN/[facility] [id number] [address] [facility] 08607Lfhqnnoi Creatinine Clearance (ChemNovember 2024 1:15pm April 18, 2025 9:32pmN/[facility] [id number] [address] [facility] 32348Pxwzgawg Creatinine Clearance (ChemNovember 2024 12:58pm April 20, 2025 2:02pmN/[facility] [id number] [address] [facility] 20847Yfisitgwpisjn Pathology TestSeptember 2024 11:00pmOct2024 9:41amSee commentSee report. Scanned copy available in EMR.[facility] [id number] [address] [facility] [address] Vital Signs Vital Reading Result Reference Range Collection Date/Time Height 64 [in_i] January 27, 2025 12:68ieQruuer22.72 kgSept2024 12:05pmHeart Rate89 /fxr78-032Qqblmcqzz 4th, 2025 12:05pmRespiratory rate18 /nrl66-27Wymfqenjm 4th, 2025 12:05pmOxygen saturation by Pulse khwqgotd43 %95-100Sept2024 12:05pmBP Mtnecsvc458 mm[Hg]100-140September 2024 12:05pmBP Eoyvkukug80 mm[Hg]60-100Sept2024 12:05pmBMI (Body Mass Index)32.4 kg/g6Mykgmmqzu2024 12:52ojGzjqit65 [in_i]April 12, 2025 3:39wpVtrvfl35.99 kgNov2024 3:27pmHeart Rate88 /mqu32-782ChjbqljqApril 12, 2025 3:27pmRespiratory rate18 /zsj47-01Hhueitlc 18th, 2025 3:27pmOxygen saturation by Pulse hisonayp20 %95-100April 12, 2025 3:27pmBP Jstzueqv732 mm[Hg]100-140Nov2024 3:27pmBP Xhlspcwni44 mm[Hg]60-100Nov2024 3:27pmBMI (Body Mass Index)33.3 kg/r6XjiwwzudApril 12, 2025 3:27pm Advance Directives Advance Directive Response Recorded Date/ Time Advance Directives No June 10:59am Insurance Providers Guarantor Rosalba Allison Posadas Address [address] [facility] [address]Qkwyhwf Info.Home Phone: Payer Group Member ID Coverage Type Subscriber Relationship to Subscriber Effective Date Expiration Date Vijay CRUZ Id: [id number] J Posadas Id: [id number] [address] [facility] [address] Home Phone: [employer] [place] [employer] Third [id number] L Posadas Id: [id number] [address] [facility] [address] Home Phone: Email: [email or web address] Id: [id number] L Posadas Id: [id number] [address] [facility] [address] Home Phone: Email: [email or web address] Encounters Encounter Location(s) Arrival/Admit Date Discharge/Departure Date Discharge/Departure Disposition Provider(s) Departed Physician/ Provider Office Visit -[facility] January 27, 2025 12:47pm January 27, 2025 1:32pm Discharged to home care or self care (routine discharge) Ousmane Kern DO Departed Referred -Lab [facility] February 16, 2025 3:33pm February 16, 2025 3:34pm Discharged to home care or self care (routine discharge) Beni Carvalho Departed Referred -LAB [facility] March 11, 2025 10:24am March 11, 2025 10:25am Discharged to home care or self care (routine discharge) Beni Carvalho Departed Physician/ Provider Office Visit -[facility] April 12, 2025 2:39pm April 12, 2025 4:09pm Discharged to home care or self care (routine discharge) Ousmane Kern DO Departed Clinical -[facility] April 13, 2025 6:54am April 13, 2025 6:55am Discharged to home care or self care (routine discharge) Ousmane Kern DO Non-patient / Non-visit -[facility] 2024 1:39pm SULY Steve-CDeparted Clinical-Lab [facility] 2024 1:15pmApril 18, 2025 1:16pmDischarged to home care or self care (routine discharge)Ousmane Kern DODeparted Clinical-Lab [facility] 2024 12:57pmNov2024 12:58pmDischarged to home care or self care (routine discharge)Ousmane Kerneparted Clinical-Lab [facility] 2024 6:46amDeceer 2024 6:47amDischarged to home care or self care (routine discharge)Ousmane Kern DO Recent Diagnosis Onset Date Admit Date Anxiety and depression Unknown January 27, 2025 12:47pm Hyperlipidemia Unknown January 27, 025 12:47pm Hypertension Unknown January 27 025 12:47pm Heavy menstrual period Unknown April 12, 2025 2:39pm Lumbar back pain Unknown April 12, 2025 2:39pm Assessments Author Jaki Calles [facility] 2024 12:11pmSooner if needed, the ER if concerns,The above note written by Jaki Calles LPN acting as human recorder, note dictated by Dr. Shen Esparza Author [facility] 2024 3:33pmThe above note written by Cheryl CAMPOS acting as human recorder, note dictated by Dr. Shen Esparza. Plan of Treatment Author Shen Esparza [facility] 2024 2:28pmBlood pressure appears to be [...] her during this office visit. Author [facility] 2024 4:28pmPatient voiced some slight [...] Low back pain in adults April 12 2:39pm
--- OUTSIDE RECORDS SUMMARY | 2025-05-02 11:23 | XMS_ITS | Continuity of Care Document ---
Author Organization [facility] Address [address] [place] [address] Phone Care Team Providers Care Hide And Skin Colerer Name Role Phone Isaias Shen QUACH Primary Care Provider Shen Esparza DO Attending Provider Beni Carvalho DO Attending Provider Mary Patterson PA-C Attending Provider Care Teams Patient Care Team Team Status: Active Member Role/Relationship Status Dates Shen Esparza DO Primary Care Provider Active Visit Care Team Team Status: Inactive Member Role/Relationship Status Dates Shen Esparza DO Primary Care Provider Active Sta rt: January 25, 2025 End: January 25warner Esparza DOAttending ProviderActiveStart: January 25, 2025 End: January [...] April 13, 2025 End: April 13, 2025 Patient Care Team Team Status: Active Member Role/Relationship Status Dates Shen Esparza DO Primary Care Provider Active Sta rt: April 14, 2025 [facility] ProviderActiveStart: April 14, 2025 Chief Complaint and Reason for Visit Chief Complaint Admit Date E55.9 F41.9 F32.A I10 E78.5 January 6:37am 6 month f/u January 27, 2025 12:47pm menorrhagia February 16, 2025 3:33pm Unknown March 11, 2025 1 0:24am back pain about 2 weeks April 12, 025 2:39pm Reason for Visit Admit Date Anxiety [...] Taking; Provider: Isaias GomezknownCitalopram 20 mg tablet Qbmorxknvuru28CASZNhxrg272Ijmeufrx 11th, 2024 2:50pmSept2024 12:22pm Hypertension Essential (primary) hypertensionFreeTextSi tablet Orally Once a day; Note: Source Status: Taking; Refills: 1; Qty: 90 Tablet; Provider: Isaias Romeo Hydrochlorothiazide 12.5 mg clpgcqYwtpuamujrqx44.5MGPOEvery 48 sszdc918YibayhsvApril 05, 2024 2:50pmFebruary 2024 12:53pmFreeTextSi tablet Orally every other day; Note: Source Status: Not-Taking\PRN; Provider: Isaias Colinbesartan 150 mg iudwzyAtgarc137QLKHSfchc375Nkhjinkr 11th, 2024 2:51pmHypertension Essential (primary) hypertensionFreeTextSi tablet Orally Once a day; Note: Source Status: Taking; Provider: Isaias GomezknownAcyclovir 800 mg tablet Xpwskphgpqze448BHAGBfbde daily as needed for cold jkqmd443RruzlftJune 23, 2024 12:33pmJanuary 2024 9:05amFreeTextSi tablet Orally prn Twice a day; Note: Source Status: Not-Taking\PRNprn; Refills: 5; Provider: Isaias Roemo Acyclovir 800 mg rwijdxWbjsyo370MEID.COMPLEX as needed for cold gulku395Nnpmvyq 30th, 2025 9:55vk870 mg orally 2 tabs twice a day PRN;UnknownAcyclovir 800 mg tabletDiscontinuedMGPOFebruary 2023 12:00amFebruary 2023 1:46pm FreeTextSi tablet Orally prn Twice a day; Note: Source Status: Not- Taking\PRNprn; Refills: 5; Provider: Isaias Gotti PIrbesartan 150 mg tablet Tjxvawpbhxeo3BMOVSPhewvBikfotlx 2023 12:00amFebruary 2023 1:46pm FreeTextSi tablet Orally Once a day; Note: Source Status: Taking; Provider: Isaias Gotti PHydrochlorothiazide 12.5 mg hzrdhyVtfqaqvpjdmm8ZNANUVufel 48 hours July 16, 2023 12:00amFebruary 2023 1:46pmFreeTextSi tablet Orally every other day; Note: Source Status: Not-Taking\PRN; Provider: Isaias tesfaye PAlbuterol Sulfate (Proair Hfa) 90 mcg/actuation HFA aerosol inhaler Egoomeldiyyg3PAXJXRWJXELSBQMeejw 6 hoursFe2023 12:00amFebruary 2023 2:18pmFreeTextSi puffs as needed Inhalation every 6 hrs; Note: Source Status: Not-Taking\PRN; Provider: Isaias Gotti PAmlodipine 10 mg tablet Ealjirvtxave7JGGJDDrcucLygdwnsm 21st, 2024 12:00amFebruary 2023 1:46pm FreeTextSi tablet Orally Once a day; Note: Source Status: Taking; Provider: Isaias Gotti PCitalopram 20 mg vahqptGygohzqxcwby1ADLXIFfqdiWwmymyxb 2023 12:00amFebruary 2023 1:46pmFreeTextSi tablet Orally Once a day; Note: Source Status: Taking; Refills: 1; Qty: 90 Tablet; Provider: Isaias Romeo Acyclovir 800 mg pgiqesPuvrkkvmdmqn718BBWHFkqquwov 2023 1:45pmJanuary 2024 12:33pmFreeTextSi tablet Orally prn Twice a day; Note: Source Status: Not-Taking\PRNprn; Refills: 5; Provider: Isaias Gotti PAmlodipine 10 mg nmsjxtDgodkzvkindm06MCMETxmtcGhhhursg 2023 1:46pmFebruary 2023 2:18pmFreeTextSi tablet Orally Once a day; Note: Source Status: Taking; Provider: Isaias Gotti PCitalopram 20 mg lxucmvCosoceaizftg54KCNUCacmcOjlqmhkh 2023 1:46pmFebruary 2023 2:18pmFreeTextSi tablet Orally Once a day; Note: Source Status: Taking; Refills: 1; Qty: 90 Tablet; Provider: Isaias Gotti PHydrochlorothiazide 12.5 mg rbzvosBbuqlcniprhi71.5MGPOEvery 48 hours July 17, 2023 1:46pmAugust 2023 12:33pmFreeTextSi tablet Orally every other day; Note: Source Status: Not-Taking\PRN; Provider: Isaias Romeo Irbesartan 150 mg iizrqgNmiipkbsrtnz413HTRLLbgyuRmlytvfg 2023 1:46pm July 17, 2023 2:18pmFreeTextSi tablet Orally Once a day; Note: Source Status: Taking; Provider: Isaias Gotti PLorazepam (Ativan) 0.5 mg tablet Discontinued0.5MGPODaily as needed for anxiety/ panic wbylqyp33955Sbkuyfwm 2023 12:00amFebruary 2023 2:24pmAnxiety and depression Anxiety disorder, unspecified Depression, unspecifiedCephalexin 500 mg dvteibjAjbpjfpsbnxo094NZJTTqnzx times ejrvj02356Igyjcovv 2023 12:00amAugust 2023 12:04pmLymphadenopathy of right cervical region Localized enlarged lymph nodesAmlodipine 10 mg qpidioBcquvqvejakl42XMAPMdwzb844 July 17, 2023 2:14pmNov2023 2:51pmHypertension Essential (primary) hypertensionFreeTextSi tablet Orally Once a day; Note: Source Status: Taking; Provider: Isaias Gotti PIrbesartan 150 mg tablet Kdlrtjpcnvvt898ALJKGerfn358Ipiyhgwo 2023 2:15pmNov2023 2:51pm Hypertension Essential (primary) hypertensionFreeTextSi tablet Orally Once a day; Note: Source Status: Taking; Provider: Isaias Gotti PCitalopram 20 mg tabletDiscontinued 00TWQQIefym552Yezaqcbf 2023 2:15pmApril 05, 2024 2:51pmHypertension Essential (primary) hypertensionFreeTextSi tablet Orally Once a day; Note: Source Status: Taking; Refills: 1; Qty: 90 Tablet; Provider: Isaias Romeo Albuterol Sulfate (Proair Hfa) 90 mcg/actuation HFA aerosol wwpnguiIdqawn1RZVB INHALATIONEvery 6 hours6.72February 2023 2:16pmAsthma Unspecified asthma, uncomplicatedFreeTextSi puffs as needed Inhalation every 6 hrs; Note: Source Status: Not-Taking\PRN; Provider: Isaias Lawrence Lorazepam (Ativan) 0.5 mg tabletActive0.5MGPODaily as needed for anxiety/ panic cpklcqi45218Xxdoitth 2023 2:24pmAnxiety and depression Anxiety disorder, unspecified Depression, unspecifiedUnknownHydrochlorothiazide 12.5 mg nchevgHverpnsenxdi11.5 MGPOEvery 48 ojrky573Fajfbd 2023 12:33pmNov2023 2:51pm FreeTextSi tablet Orally every other day; Note: Source Status: Not- Taking\PRN; Provider: Isaias Gotti PHydrochlorothiazide 12.5 mg zeozmxTomlzu65.5MG POdaily as neededFebruary 2024 12:53pmUnknownCitalopram 20 mg tabletActive 86SCYLUteov561Vyiujlbqf 4th, 2025 12:06pmHypertension Essential (primary) hypertensionUnknownTizanidine (Zanaflex) 4 mg capsuleActive4 MGPODaily at bedtime as needed for muscle clqbivkozk098Fpmhrdrc 18th, 2025 12:00amUnknown Immunizations Immunization Event Date Not Given Reason Dose Number Electrolysis Needle Operator Lot Number Reason(s) Given Vaccine Information Statement (VIS) Detail Administration Location Trivalent Influenza Vaccine September 18, 2018 Patient R efused Relevant Diagnostic Tests and/or Laboratory Data Laboratory Results Test Collection Date/Time Result Date/Time Result Interpretation Reference Range Result Comment Performing Site Human Chorionic Gonadotropin, Qual April 14, 2025 1:39pm April 14, 2025 1:39pm NEGATIVE NEGATIVEAnion GapApril 14, 2025 1:39pmApril 14, 2025 1:39pm13.6 Basophils # (Auto)April 14, 2025 1:39pmApril 14, 2025 1:39pm0.1 10 3/uL0.0-0.1BUN/Creatinine RatioNove2024 1:39pmApril 14, 2025 1:39pm19.2Basophils (%) (Auto)April 14, 2025 1:39pmApril 14, 2025 1:39pm0.6 %0.2-2.0Blood Urea NitrogenApril 14, 2025 1:39pmApril 14, 2025 1:39pm10.0 mg/dL7.0-18.0Eosinophils # (Auto)April 14, 2025 1:39pm April 14, 2025 1:39pm0.1 10 3/uL0.0-0.7Calcium LevelApril 14, 2025 1:39pmApril 14, 2025 1:39pm8.6 mg/dL8.5-10.1Eosinophils (%) (Auto)April 14, 2025 1:39pmApril 14, 2025 1:39pm1.1 %0.9-7.0Chloride LevelApril 14, 2025 1:39pmApril 14, 2025 1:55en899 mmol/P41-884QjmuqkpwzdHyenzwzj 20th, 2025 1:39pmApril 14, 2025 1:39pm22.3 %Below lower panic limits 36.0-48.0RESULTS CALLED TO Mary Patterson,PACarbon Dioxide LevelApril 14, 2025 1:39pmApril 14, 2025 1:39pm24.8 mmol/L21.0-32.0Hemoglobin April 14, 2025 1:39pmApril 14, 2025 1:39pm6.9 g/dLBelow lower panic ymvukz75.0-16.0RESULTS CALLED TO Mary Patterson,PACreatinineApril 14, 2025 1:39pmApril 14, 2025 1:39pm0.52 mg/dLBelow low normal0.55-1.02Immature Granulocyte # (Auto)April 14, 2025 1:39pmApril 14, 2025 1:39pm0.03 10 3/uL0.00-0.03Estimated GFR ()April 14, 2025 1:39pmApril 14, 2025 1:39pm>60>=60 mL/min/1.73m 2Immature Granulocyte % (Auto)April 14, 2025 1:39pmApril 14, 2025 1:39pm0.4 %0.0-0.5Estimated GFR (Non- AmericanApril 14, 2025 1:39pmApril 14, 2025 1:39pm>60>=60 mL/min/1.73m 2Lymphocytes # (Auto)April 14, 2025 1:39pmApril 14, 2025 1:39pm2.4 10 3/uL1.2-3.8Glucose LevelApril 14, 2025 1:39pmApril 14, 2025 1:39pm93 mg/sR04-467Woevhcunhth (%) (Auto)April 14, 2025 1:39pm April 14, 2025 1:39pm29.8 %20.5-60.0Potassium LevelApril 14, 2025 1:39pmApril 14, 2025 1:39pm3.4 mmol/LBelow low normal3.5-5.1Mean Corpuscular HemoglobinApril 14, 2025 1:39pmApril 14, 2025 1:39pm23.3 pgBelow low tuehso91.7-34.0Sodium LevelApril 14, 2025 1:39pmApril 14, 2025 1:56nh956 mmol/S535-820Oayp Corpuscular Hemoglobin ConcentApril 14, 2025 1:39pmApril 14, 2025 1:39pm30.9 g/dL29.9-35.2Mean Corpuscular Volume April 14, 2025 1:39pmApril 14, 2025 1:39pm75.3 fLBelow low normal 81.0-99.0Monocytes # (Auto)April 14, 2025 1:39pmApril 14, 2025 1:39pm 0.4 10 3/uL0.3-0.8Monocytes (%) (Auto)April 14, 2025 1:39pmApril 14, 2025 1:39pm4.3 %1.7-12.0Mean Platelet VolumeApril 14, 2025 1:39pmApril 14, 2025 1:39pm8.7 fLBelow low normal9.5-13.5Neutrophils # (Auto)April 14, 2025 1:39pmApril 14, 2025 1:39pm5.2 10 3/uL1.4-6.5Neutrophils (%) (Auto)April 14, 2025 1:39pmApril 14, 2025 1:39pm63.8 %43.0-75.0 Platelet CountApril 14, 2025 1:39pmApril 14, 2025 1:42pe195 10 3/uL 150-450Red Blood CountApril 14, 2025 1:39pmApril 14, 2025 1:39pm2.96 10 6/uLBelow low normal4.20-5.40Red Cell Distribution WidthApril 14, 2025 1:39pmApril 14, 2025 1:39pm14.8 %11.0-15.0Corrected White Blood Count April 14, 2025 1:39pmApril 14, 2025 1:39pm8.1 10 3/uL4.0-11.0Corrected White Blood CountS2024 5:38amSept2024 12:55pm6.4 10*3/uL3.8-11.6[facility] [id number] [address] [place] [address] 14695Wepmcqkoc White Blood CountNovember 2024 6:55amNovember 2024 2:37pm5.9 10*3/uL3.8-11.6F[facility] [id number] [address] [facility] 04694Etujpzwsosf WBC CountSeptember 2024 5:38amSeptember 2024 12:55pm6.4 10*3/uL3.8-11.6F[facility] [id number] [address] [facility] 34887Hpnodpwguje WBC CountNovember 2024 6:55amNovember 2024 2:37pm5.9 10*3/uL3.8-11.6F[facility] [id number] [address] [place] [address] 05249Vdu Blood CountSeptember 2024 5:38amSeptember 2024 12:55pm3.86 10*6/uL3.60-5.00[facility] [id number] [address] [place] [address] 52578Niq Blood CountNovember 2024 6:55amNovember 2024 2:37pm3.20 10*6/uLBelow low normal3.60-5.00[facility] [id number] [address] [place] [address] 41991UlkktukgknHzrxrjsrq 2024 5:38amSeptember 2024 12:55pm 12.0 g/dL11.8-15.4F[facility] [id number] [address] [place] [address] 05435RobxtrzwfuCvivirig 2024 6:55amNovember 2024 2:37pm 7.5 g/dLBelow low .8-15.4F[facility] [id number] [address] [place] [address] 86407KpdwfgvaccStkbykrao 2024 5:38amSeptember 2024 12:55pm 34.9 %34.0-46.4F[facility] [id number] [address] [place] [address] 08145ItwieziztkHjluiqnm 2024 6:55amN2024 2:37pm 23.6 %Below low uynaav95.0-46.4F[facility] [id number] [address] [facility] 04354Mhud Corpuscular VolumeSeptember 2024 5:38amSeptember 2024 12:55pm90.4 nD97-058HjyabgnufAv[facility] [id number] [address] [facility] 84694Bwdt Corpuscular VolumeNovember 2024 6:55amNovember 2024 2:37pm73.7 fLBelow low kfcwpi99-241UxdthruwaAvita [facility] [id number] [address] [facility] 10917Ioyi Corpuscular HemoglobinSeptember 2024 5:38amSeptember 2024 12:55pm31.0 pg24.7-34.3F[facility] [id number] [address] [facility] 98627Idjb Corpuscular HemoglobinNovember 2024 6:55amNovember 2024 2:37pm23.5 pgBelow low .7-34.3F[facility] [id number] [address] [facility] 34322Zuhv Corpuscular Hemoglobin ConcentSeptember 2024 5:38am January 25, 2025 12:55pm34.3 g/dL32.0-35.0[facility] [id number] [address] [place] [address] 61199Mzxn Corpuscular Hemoglobin ConcentNovember 2024 6:55am April 13, 2025 2:37pm31.8 g/dLBelow low dpcmuj74.0-35.0[facility] [id number] [address] [facility] 45405Iio Cell Distribution WidthSeptember 2024 5:38amSeptember 2024 12:55pm12.0 %11.9-15.3F[facility] [id number] [address] [facility] 56622Wxa Cell Distribution WidthNovember 2024 6:55amNovember 2024 2:37pm16.8 %Above high kfkupo06.9-15.3F[facility] [id number] [address] [facility] 34255Utyfuvgq CountSeptember 2024 5:38amSeptember 2024 12:03uq100 10*3/hB452-878QhnnethsmAvita [facility] [id number] [address] [facility] 47692Alvptjez CountNovember 2024 6:55amNovember 2024 2:23qa245 10*3/tC950-494VeheilbnwAv[facility] [id number] [address] [facility] 53359Ldwg Platelet VolumeSeptember 2024 5:38amSeptember 2024 12:55pm7.5 fL6.3-10.7F[facility] [id number] [address] [facility] 04192Dexq Platelet VolumeNovember 2024 6:55amNovember 2024 2:37pm7.2 fL6.3-10.7F[facility] [id number] [address] [facility] 22555Abrdcwpgilj (%) (Auto)January 25, 2025 5:38amSeptember 2024 12:55pm55.3 %.[facility] [id number] [address] [facility] 31685Xzjkbhalabh (%) (Auto)April 13, 2025 6:55amNovember 2024 2:37pm52.9 %.[facility] [id number] [address] [facility] 03000Lmkrguydioc (%) (Auto)January 25, 2025 5:38amSeptember 2024 12:55pm35.1 %.[facility] [id number] [address] [facility] 64931Tnbnpkkdbpr (%) (Auto)April 13, 2025 6:55amNovember 2024 2:37pm37.5 %.[facility] [id number] [address] [facility] 15140Fhloqcejf (%) (Auto)January 25, 2025 5:38amSeptember 2024 12:55pm6.1 %.[facility] [id number] [address] [facility] 25812Szvpqeaod (%) (Auto)April 13, 2025 6:55amNovember 2024 2:37pm6.2 %.[facility] [id number] [address] [facility] 25405Talucmteuae (%) (Auto)January 25, 2025 5:38amSeptember 2024 12:55pm2.6 %.[facility] [id number] [address] [facility] 91417Jwicaiorsow (%) (Auto)April 13, 2025 6:55amNovember 2024 2:37pm2.3 %.[facility] [id number] [address] [facility] 81316Nfqhktatz (%) (Auto)January 25, 2025 5:38amSeptember 2024 12:55pm0.9 %.[facility] [id number] [address] [facility] 54996Irmhiosto (%) (Auto)April 13, 2025 6:55amNovember 2024 2:37pm1.1 %.[facility] [id number] [address] [facility] 32185Prftvrmzk RBC Relative Count (auto)January 25, 2025 5:38am January 25, 2025 12:55pm0.2 /100{WBC}0-0.5F[facility] [id number] [address] [facility] 26972Rfpleagxh RBC Relative Count (auto)April 13, 2025 6:55am April 13, 2025 2:37pm0.1 /100{WBC}0-0.5F[facility] [id number] [address] [facility] 64733Tktruggsupd # (Auto)January 25, 2025 5:38amSeptember 2024 12:55pm3.6 10*3/uL1.8-7.7F[facility] [id number] [address] [facility] 64537Cmuqtmgjflt # (Auto)April 13, 2025 6:55amNovember 2024 2:37pm3.1 10*3/uL1.8-7.7F[facility] [id number] [address] [facility] 37060Wsscjrvvipp # (Auto)January 25, 2025 5:38amSeptember 2024 12:55pm2.3 10*3/uL1.00-4.8[facility] [id number] [address] [place], [place] [address]70Lymphocytes # (Auto)April 13, 2025 6:55amNovember 2024 2:37pm2.2 10*3/uL1.00-4.8[facility] [id number] [address] [place] [address] 28031Cfrvbihfh # (Auto)January 25, 2025 5:38amSeptember 2024 12:55pm0.4 10*3/uL0.0-0.8[facility] [id number] [address] [place] [address] 04456Hivaoenso # (Auto)April 13, 2025 6:55amNovember 2024 2:37pm0.4 10*3/uL0.0-0.8[facility] [id number] [address] [place] [address] 23279Zykqvrojtrk # (Auto)January 25, 2025 5:38amSeptember 2024 12:55pm0.2 10*3/uL0.0-0.45[facility] [id number] [address] [place] [address] 98401Lpxppsmtymp # (Auto)April 13, 2025 6:55amNovember 2024 2:37pm0.1 10*3/uL0.0-0.45[facility] [id number] [address] [place] [address] 47924Npcqlugzr # (Auto)January 25, 2025 5:38amSeptember 2024 12:55pm0.1 10*3/uL0.0-0.2F[facility] [id number] [address] [place], [place] [address]Basophils # (Auto)April 13, 2025 6:55amNove2024 2:37pm0.1 10*3/uL0.0-0.2F[facility] [id number] [address] [facility] 52625Jneaxrt LevelSeptember 2024 5:38amSeptember 2024 1:25pm89 mg/cZ80-497ZMQ recommended reference rangeRandom Glucose Reference Range is dependent on time and content of last meal. Glucose of more than 200 mg/dL in a nonstressed, ambulatory subject supports the diagnosisof Diabetes Mellitus.[facility] [id number] [address] [facility] 35280Kbxgnou LevelNov2024 6:55amNove2024 2:41pm97 mg/nI79-437JZU recommended reference rangeRandom Glucose Reference Range is dependent on time and content of last meal. Glucose of more than 200 mg/dL in a nonstressed, ambulatory subject supports the diagnosisof Diabetes Mellitus.[facility] [id number] [address] [facility] 19960Qzwxa Urea NitrogenSept2024 5:38amSeptember 2024 1:25pm8 mg/dL7-[facility] [id number] [address] [place] [address] 23253Xbrhn Urea NitrogenNov2024 6:55amNove2024 2:41pm9 mg/dL7-[facility] [id number] [address] [place] [address] 21346DmpweuksqkPndhuctyz 2024 5:38amSeptember 2024 1:25pm 0.49 mg/dLBelow low normal0.60-1.20[facility] [id number] [address] [place] [address] 42548JhilfarewaMqhriwop 19th, 2025 6:55amNovember 2024 2:41pm 0.44 mg/dLBelow low normal0.60-1.20[facility] [id number] [address] [facility] 25054Yxqyhrfyo GFR (CKD-EPI)January 25, 2025 5:38amSeptember 2024 1:25pm> 60.0 mL/MinAvita Health System [facility] [id number] [address] [facility] 60394Slgswbcew GFR (CKD-EPI)April 13, 2025 6:55amNovember 2024 2:41pm> 60.0 mL/MinAv[facility] [id number] [address] [facility] 71383Ppbttd LevelSeptember 2024 5:38amSeptember 2024 1:13dq942 mmol/V837-959SyaiavhxcAvita Health System [facility] [id number] [address] [facility] 77132Upvytn LevelNovember 2024 6:55amNovember 2024 2:25eh850 mmol/Q671-480ZadtwwgrkAvita Health System [facility] [id number] [address] [facility] 42367Igmoqlaju LevelSeptember 2024 5:38amSeptember 2024 1:25pm3.9 mmol/L3.5-5.1F[facility] [id number] [address] [facility] 36564Fcpoxnhcw LevelNovember 2024 6:55amNovember 2024 2:41pm4.6 mmol/L3.5-5.1F[facility] [id number] [address] [facility] 67003Kxzqcsil LevelSeptember 2024 5:38amSeptember 2024 1:43cc221 mmol/J38-383PibfyzwjmAvita [facility] [id number] [address] [facility] 52004Dxolfqbv LevelNovember 2024 6:55amNovember 2024 2:71cg256 mmol/LAbove high -952StruorozwAvita Health System [facility] [id number] [address] [facility] 56793Hrogcz Dioxide LevelSeptember 2024 5:38amSeptember 2024 1:25pm26.8 mmol/L21.0-31.0[facility] [id number] [address] [facility] 54498Oeeyzv Dioxide LevelNovember 2024 6:55amNovember 2024 2:41pm26.0 mmol/L21.0-31.0[facility] [id number] [address] [facility] 79567Ngjux GapSeptember 2024 5:38amSeptember 2024 1:25pm 12.1 mEq/L6.0-15.0[facility] [id number] [address] [facility] 91978Eqnmf GapNovember 2024 6:55amNovember 2024 2:41pm 10.6 mEq/L6.0-15.0[facility] [id number] [address] [facility] 79302Iquakhe LevelSeptember 2024 5:38amSeptember 2024 1:25pm8.8 mg/dL8.6-10.3F[facility] [id number] [address] [facility] 82469Gwwtmxq LevelNovember 2024 6:55amNovember 2024 2:41pm8.7 mg/dL8.6-10.3F[facility] [id number] [address] [facility] 64662Cscvv ProteinSeptember 2024 5:38amSeptember 2024 1:25pm6.8 g/dL6.4-8.9[facility] [id number] [address] [place] [address] 40232Aciik ProteinNovember 2024 6:55amNovember 2024 2:41pm6.0 g/dLBelow low normal6.4-8.9[facility] [id number] [address] [facility] 78727MkjibdtVdozmxlmh 2024 5:38amSeptember 2024 1:25pm4.1 g/dL3.5-5.7F[facility] [id number] [address] [facility] 48772ZkxmdmaJekklbey 2024 6:55amNovember 2024 2:41pm3.7 g/dL3.5-5.7F[facility] [id number] [address] [facility] 24123LmtzjeyaTjahqybrl 2024 5:38amSeptember 2024 1:25pm2.7 g/dLAvita Health System [facility] [id number] [address] [facility] 29655LewkihwiLfpvicen 2024 6:55amNovember 2024 2:41pm2.3 g/dLAvita Health System [facility] [id number] [address] [facility] 87907Inojbsm/Globulin RatioSeptember 2024 5:38amSeptember 2024 1:25pm1.5F[facility] [id number] [address] [facility] 33882Jlcekke/Globulin RatioNovember 2024 6:55amNovember 2024 2:41pm1.6F[facility] [id number] [address] [place] [address] 42613Yoenl BilirubinSeptember 2024 5:38amSeptember 2024 1:25pm0.4 mg/dL0.3-1.0[facility] [id number] [address] [place] [address] 43162Zoxob BilirubinNovember 2024 6:55amNovember 2024 2:41pm0.2 mg/dLBelow low normal0.3-1.0[facility] [id number] [address] [place] [address] [id number] Amino Transf (AST/SGOT)January 25, 2025 5:38am January 25, 2025 1:25pm23 U/D95-75BdfbrfugmAv[facility] [id number] [address] [place] [address] [id number] Amino Transf (AST/SGOT)April 13, 2025 6:55am April 13, 2025 2:41pm20 U/X73-89SgaiilyfxAv[facility] [id number] [address] [place] [address] [id number] Aminotransferase (ALT/SGPT)January 25, 2025 5:38am January 25, 2025 1:25pm13 U/L7-52[facility] [id number] [address] [facility] [id number] Aminotransferase (ALT/SGPT)April 13, 2025 6:55am April 13, 2025 2:41pm12 U/L7-52[facility] [id number] [address] [facility] [id number] PhosphataseSeptember 2024 5:38amSeptember 2024 1:89py159 U/E62-049HvapzvadyAvita [facility] [id number] [address] [facility] [address]Nkltcalt PhosphataseNov2024 6:55amNovember 2024 2:41pm81 U/Q48-528QnvtsxyjhAvita [facility] [id number] [address] [facility] [id number] LevelSeptember 2024 5:38amSeptember 2024 1:74yj800 mg/nK804-331Hzpl less than 200 mg/dl low riskChol 201-239 mg/dl borderline riskChol 240 mg/dl and greater high riskAv[facility] [id number] [address] [facility] [id number] CholesterolSeptember 2024 5:38amSeptember 2024 1:25pm52 mg/yC79-93RQT CHOL ATP-III CLASSIFICATION Cardiovascular RiskHDL > or equal to 60 mg/dL LOWHDL < 40 mg/dL HIGHAvita [facility] [id number] [address] [facility] [address]Mbmltmkzninnf LevelSeptember 2024 5:38amSept2024 1:94xs319 mg/dLAbove high normal0-149TRIG ATP III CLASSIFICATIONTRIG less than 150 mg/dL NormalTRIG 150-199 mg/dL Borderline highTRIG 200-500 mg/dL High TRIG greater than 500 mg/dL Very highStandard traceable to the Center for Disease Conrtrol and Prevention (CDC) test method.[facility] [id number] [address] [facility] [id number] Cholesterol, CalculatedSeptember 2024 5:38amSeptember 2024 1:25pm60 mg/dL0-100LDL ATP III CLASSIFICATIONLDL less than 100 mg/dL OptimalLDL 100-129 mg/dL Near or above pfkqtosQFG936-969 mg/dL Borderline highLDL 160-189 mg/dL HighLDL greater than 189 mg/dL Very highAv[facility] [id number] [address] [facility] [id number] CholesterolSeptember 2024 5:38amSept2024 1:25pm52 mg/dLAvita [facility] [id number] [address] [facility] [address]Zlfzvlqhjqm/HDL RatioSept2024 5:38amSept2024 1:25pm3.2<5.0[facility] [id number] [address] [facility] [address]Lddukbh Stimulating Hormone 3rd GenSept2024 5:38am January 25, 2025 1:42pm2.46 u[iU]/mL0.45-5.33[facility] [id number] [address] [facility] [id number]-Qeozdac Vitamin D TotalSept2024 5:38amSept2024 1:52pm15.1 ng/mLBelow low xrycqs16-520UHHCQBL D STATUS 25(OH)VITAMIN D RANGE (ng/mL) Deficient <20 Insufficient 20 to <22Dltwibodai48 to 100Reference: Ela MF,Margarita NC, Graham ACUÑA, et al. Evaluation,treatment, and prevention of vitamin D deficiency; an Endocrine Society clinical practice guideline. JCEM. 2010; 96(7):1911-30.[facility] [id number] [address] [facility] [id number] Creatinine Clearance (ChemSept2024 5:38am January 25, 2025 1:25pmN/[facility] [id number] [address] [facility] [id number] Creatinine Clearance (ChemNovember 2024 6:55am April 13, 2025 2:41pmN/[facility] [id number] [address] [facility] [id number] T9tRlmmxkmlw 2024 5:38amSept2024 1:50pm4.7 %4.3-5.6Increased risk for diabetes: 5.7 - 6.4diabetes: >6.4glycemic control for adults with diabetes: <7.0[facility] [id number] [address] [facility] [address]Pnghbcdfu Average GlucoseSeptember 2024 5:38amSeptember 2024 1:50pm88 mg/dLAvita [facility] [id number] [address] [facility] [id number] Pathology TestSeptember 2024 11:00pmOctober 2024 9:41amSee commentSee report. Scanned copy available in EMR.[facility] [id number] [address] [facility] [address] Vital Signs Vital Reading Result Reference Range Collection Date/Time Height 64 [in_i] January 27, 2025 12:09zkTldnjl68.72 kgSeptember 2024 12:05pmHeart Rate89 /wdc94-356Orzljmohm 2024 12:05pmRespiratory rate18 /tqq25-94Tzstpmwjp 4th, 2025 12:05pmOxygen saturation by Pulse iucuuuks92 %95-100September 2024 12:05pmBP Cotklfmb097 mm[Hg]100-140September 2024 12:05pmBP Hkcpymybx89 mm[Hg]60-100September 2024 12:05pmBMI (Body Mass Index)32.4 kg/j3Akupzsofa 2024 12:47nrTfsoqw21 [in_i]April 12, 2025 3:65hkOdsjmj93.99 kgNovember 2024 3:27pmHeart Rate88 /uea77-954Crvedjjn 2024 3:27pmRespiratory rate18 /eon31-40Qwbwhfca 2024 3:27pmOxygen saturation by Pulse hvkuhrjr86 %95-100November 2024 3:27pmBP Bzdtcwyp515 mm[Hg]100-140Nov2024 3:27pmBP Dlfpvfynb24 mm[Hg]60-100November 2024 3:27pmBMI (Body Mass Index)33.3 kg/m3Gauordby2024 3:27pm Advance Directives Advance Directive Response Recorded Date/ Time Advance Directives No June 10:59am Insurance Providers Guarantor Rosalba Allison Posadas Address [address] [facility] [address]Vxecwth Info.Home Phone: Payer Group Member ID Coverage Type Subscriber Relationship to Subscriber Effective Date Expiration Date Vijay CRUZ Id: [id number] J Posadas Id: [id number] [address] [facility] [address] Home Phone: [employer] [place] [employer] Third [id number] L Posadas Id: [id number] [address] [facility] [address] Home Phone: Email: [email or web address] Id: [id number] L Posadas Id: [id number] [address] [facility] [address] Home Phone: Email: [email or web address] Encounter Location(s) Arrival/Admit Date Discharge/Departure Date Discharge/Departure Disposition Provider(s) Departed Clinical -[facility] [place] January 25, 2025 6:37am January 25, 2025 6:38am Discharged to home care or self care (routine discharge) Ousmane Kern DO Departed Physician/ Provider Office Visit [facility] January 27, 2025 12:47pm January 27, 2025 1:32pm Discharged to home care or self care (routine discharge) Ousmane Kern DO Departed Referred -[facility] February 16, 2025 3:33pm February 16, 2025 3:34pm Discharged to home care or self care (routine discharge) Beni Carvalho Departed Referred -[facility] March 11, 2025 10:24am March 11, 2025 10:25am Discharged to home care or self care (routine discharge) Beni Carvalho Departed Physician/ Provider Office Visit -[facility] April 12, 2025 2:39pm April 12, 2025 4:09pm Discharged to home care or self care (routine discharge) Ousmane Kern DO Departed Clinical -[facility] [place] April 13, 2025 6:54am April 13, 2025 6:55am Discharged to home care or self care (routine discharge) Ousmane Kern DO Non-patient / Non-visit -[facility] 2024 1:39pm Mary Patterson PA-C Recent Diagnosis Onset Date Admit Date Anxiety and depression Unknown January 27, 2025 12:47pm Hyperlipidemia Unknown January 27, 025 12:47pm Hypertension Unknown January 27 025 12:47pm Heavy menstrual period Unknown April 12, 2025 2:39pm Lumbar back pain Unknown April 12, 2025 2:39pm Assessments Author Jaki Calles [facility] 2024 12:11pmSooner if needed, the ER if concerns,The above note written by Jaki Calles LPN acting as human recorder, note dictated by Dr. Shen Esparza Author [facility]yl [facility] 2024 3:33pmThe above note written by Cheryl CAMPOS acting as human recorder, note dictated by Dr. Shen Esparza. Plan of Treatment Author Shen Esparza [facility] 2024 2:28pmBlood pressure appears to be well [...] her during this office visit. Author [facility] 2024 4:28pmPatient voiced some slight pain on [...]
[2025-05-02 11:30] LABS: Hematocrit 27.3 % (36.0-48.0); Hemoglobin 8.3 g/dL (12.0-16.0); Immature Granulocytes Abs Auto 0.03 10^3/uL (0.00-0.03); Immature Granulocytes Pct Auto 0.4 % (0.0-0.5); Lymphocytes Absolute Auto 2.1 10^3/uL (1.2-3.8); Mean Corpuscular HGB Conc 30.4 g/dL (29.9-35.2); Mean Corpuscular Hemoglobin 22.2 pg (26.7-34.0); Mean Corpuscular Volume 73.0 fL (81.0-99.0); Platelet Count 263 10^3/uL (150-450); Red Blood Count 3.74 10^6/uL (4.20-5.40); White Blood Count 6.7 10^3/uL (4.0-11.0)
--- OUTSIDE RECORDS SUMMARY | 2025-05-02 11:31 | XMS_ITS | CCD ---
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 Name Role Phone DR JASON PADILLA Attending Unavailable BRETT, DR GOMEZ Consulting Unavailable DR JASON PADILLA Admitting Unavailable [facility] [place] SHANKS Primary Care Unavailable Shen Esparza Unavailable Bonita Parra Unavailable DO Shen Esparza Primary Care Provider DO Shen Esparza Attending Provider Shen Esparza MD Primary Care Provider [phone] Shen Esparza DO Primary Care Provider Lucio Goldstein DO Attending Provider [phone] Shen Esparza DO Primary Care Provider Shen Esparza DO Attending Provider Beni Carvalho DO Attending Provider [phone] Lucio Goldstein Admitting Unavailable Shen Esparza Primary Care Unavailable Lucio Goldstein Attending Unavailable Beni Carvalho Attending Unavailable Beni Carvalho Admitting Unavailable Shen Esparza Primary Care Unavailable Shen Esparza Attending Unavailable Shen Esparza Primary Care Unavailable Shen Esparza Admitting Unavailable Beni Carvalho Attending Unavailable Beni Carvalho Admitting Unavailable VERA AFTIMA Attending Unavailable BENI CARVALHO Attending Unavailable BENI CARVALHO Attending Unavailable VERA FATIMA Attending Unavailable Medications Current Medications MedicationDrug Class(es)DatesSig (Normalized)Sig (Original)[id number] 200 actuat albuterol 0.09 mg/actuat metered dose inhaler (18 sources)beta2-Adrenergic AgonistStart: 07-16-2023 End: 33-41-1700jxkp 2 puff(s) by inhalation every six hours as neededStart: 63-46-0531dmhj 2 puff(s) by inhalation every six hours as neededProAir HFA 108 (90 Base) MCG/ACT 2 puffs as needed Inhalation every 6 hrs Dec, Active Albuterol Sulfate (Proair Hfa) 90 mcg/actuation HFA aerosol inhaler (3 sources)Start: 86-54-9195pzdm 2 puff(s) by inhalation every six hours as neededAlbuterol Sulfate (Proair Hfa) 90 mcg/actuation HFA aerosol inhaler Active 2 PUFF INHALATION Every 6 hours 6.7 July 17, 2023 2:16pm FreeTextSi puffs as needed Inhalation every 6 hrs; Note: Source Status: Not- TakingundefinedPRN; Provider: Isaias Gotti PStart: 76-85-5037gzuj 2 puff(s) by inhalation every six hours as neededAlbuterol Sulfate (Proair Hfa) 90 mcg/actuation HFA aerosol inhaler Active 2 PUFF INHALATION Every 6 hours 6.7 July 17, 2023 3:16pm FreeTextSi puffs as needed Inhalation every 6 hrs; Note: Source Status: Not-Taking\PRN; Provider: Isaias Gotti PamLODIPine 10 mg oral tablet (20 sources)Dihydropyridine Calcium Channel BlockerStart: 04-01-2754ymEXHWCjvj (Norvasc) 10 MG tablet 07/06/2024 ActiveStart: 07-16-2023 End: 19-88-0156gykc 1 tablet by mouth once dailyAmlodipine 10 mg tablet Discontinued 10 MG PO Daily 90 July 17, 2023 3:14pm April 05, 2024 3:51pm Hypertension Essential (primary) hypertension FreeTextSi tablet Orally Once a day; Note: Source Status: Taking; Provider: Isaias Gotti PStart: 31-75-6466evzu 1 tablet by mouth every twenty-four hoursamLODIPine Besylate 10 MG 1 tablet Orally Once a day Nov, Activeciprofloxacin 3 mg/ml ophthalmic solution (3 sources)Quinolone AntimicrobialStart: 14-23-5311clfq 1-2 drop(s) into the eye(s) every four hoursCiprofloxacin HCl 0.3 % 1-2 drops Ophthalmic every 4 hours for 7 Jun, ActiveStart: 89-47-3543ixjb 1-2 drop(s) into the eye(s) every four hoursCiprofloxacin HCl 0.3 % 1-2 drops Ophthalmic every 4 hours for 7 days September, Activecitalopram 20 mg oral tablet (20 sources)Serotonin Reuptake InhibitorStart: 07-16-2023 End: 41-07-1130lnjlxakced (CeleXA) 20 MG tablet 07/06/2024 ActiveStart: 73-18-5682ueeb 1 tablet by mouth every twenty-four hoursCeleXA 20 MG 1 tablet Orally Once a day for 90 days Nov, ActivehydroCHLOROthiazide 12.5 mg oral tablet (20 sources)Thiazide DiureticStart: 26-81-5262wzoqtLNGIJOkyjafayn (HYDRODiuril) 12.5 MG tablet 07/06/2024 ActiveStart: 07-16-2023 End: 04-09-4625Nciorstneohwomqyzas 12.5 mg tablet Discontinued 12.5 MG PO Every 48 hours 90 0 January 15, 2024 1:33pm April 05, 2024 3:51pm FreeTextSi tablet Orally every other day; Note: Source Status: Not-Taking\PRN; Provider: Isaias Gotti PLORazepam 0.5 mg oral tablet (20 sources)BenzodiazepineStart: 07-17-2023 End: 42-85-6593vkmj 1 tablet by mouth once daily as needed for anxietyStart: 12-14-9416kchl 1 tablet by mouth every six hoursAtivan 0.5 MG 1 tablet as needed Orally every 6 hrs PRN Oct, ActiveStart: 35-21-5116pden 1 tablet by mouth every six hoursAtivan 0.5 MG 1 tablet as needed Orally every 6 hrs PRN Oct, Not-Taking Completed/Discontinued Medications MedicationDrug Class(es)DatesSig (Normalized)Sig (Original)acyclovir 800 mg oral tablet (20 sources)Herpesvirus Nucleoside Analog DNA Polymerase Inhibitor, Herpes Simplex Virus Nucleoside Analog DNA Polymerase Inhibitor, Herpes Zoster Virus Nucleoside Analog DNA Polymerase InhibitorStart: 07-16-2023 End: 80-96-2907xvun 2 tablets by mouth twice daily as neededAcyclovir 800 mg tablet Discontinued 800 MG PO July 17, 2023 2:45pm June 23, 2024 1:33pmFreeTextSi tablet Orally prn Twice a day; Note: Source Status: Not- Taking\PRNprn; Refills: 5; Provider: Isaias Gotti PStart: 80-81-8367nbpc 2 tablets by mouth twice daily as neededAcyclovir 800 MG 2 tablet Orally prn Twice a day for 2 days prn Jan, Not-Taking/PRNcephalexin 500 mg oral capsule (9 sources)Cephalosporin AntibacterialStart: 07-17-2023 End: 32-12-2879qpxf 1 capsule by mouth three times dailyCephalexin 500 mg capsule Discontinued 500 MG PO Three times daily 30 10 0 July 17, 2023 1:00am January 15, 2024 1:04pm Lymphadenopathy of right cervical region Localized enlarged lymph nodesdiclofenac sodium 20 mg/ml topical solution (10 sources)Nonsteroidal Anti-inflammatory DrugStart: 66-60-3854Wdxqwofr 2 % 2 pumps Externally Twice a day sample provided Jul, Not-Taking Hydrochlorothiazide-12.5 mg 12.5 mg (11 sources)Start: 61-23-4948jojm 1 tablet by mouth every other day as needed Hydrochlorothiazide-12.5 mg 12.5 mg 1 tablet Orally every other day Feb, Not-Taking/PRNStart: 68-71-0230zeuw 1 tablet by mouth every other day Hydrochlorothiazide-12.5 mg 12.5 mg 1 tablet Orally every other day Feb, Activeirbesartan 150 mg oral tablet (20 sources)Angiotensin 2 Receptor BlockerStart: 07-16-2023 End: 96-93-6327lyyj 1 tablet by mouth once dailyIrbesartan 150 mg tablet Discontinued 150 MG PO Daily 90 3 July 17, 2023 3:15pm April 05, 2024 3:51pm Hypertension Essential (primary) hypertension FreeTextSi tablet Orally Once a day;Note: Source Status: Taking; Provider: Isaias Gotti PStart: 54-35-7564ypyl 1 tablet by mouth every twenty-four hoursIrbesartan 150 MG 1 tablet Orally Once a day May, Activepotassium bicarbonate 25 meq effervescent oral tablet (10 sources)Start: 73-88-0939gupw 1 tablet by mouth once daily at mealtimeKlor- Con/EF 25 MEQ 1 tablet dissolved in water with meals Orally once a day Apr, Not-TakingProAir HFA 108 (90 Base) MCG/ACT (7 sources)Start: 60-86-7405uqxh 2 puff(s) by inhalation every six hours as neededProAir HFA 108 (90 Base) MCG/ACT 2 puffs as needed Inhalation every 6 hrs Dec, Not-Taking/PRNStart: 77-84-2352xovp 2 puff(s) by inhalation every six hours as neededProAir HFA 108 (90 Base) MCG/ACT 2 puffs as needed Inhalation every 6 hrs Dec, ActiveStart: 59-59-6577pank 2 puff(s) by inhalation every six hours as neededProAir HFA 108 (90 Base) MCG/ACT 2 puffs as needed Inhalation every 6 hrs for 90 days Dec, Active Problems Active Problems Problem ClassificationProblemDateDocumented DateEpisodic/ChronicAbdominal pain (1 source)Pain in pelvis; Translations: [Pelvic and perineal pain]02-16-2025 EpisodicAnxiety disorders (20 sources)Anxiety; Translations: [Anxiety disorder, unspecified]Onset: 10-09-2021 Resolved: 65-34-9836UchnjkkFhfine (8 sources)Asthma; Translations: [Unspecified asthma, uncomplicated]07-17-2023 ChronicDisorders of lipid metabolism (20 sources)Hypertriglyceridemia; Translations: [Pure hyperglyceridemia]Onset: 11-19-2021 Resolved: 46-73-3126IfiuxkbEnwopltna hypertension (20 sources)Benign essential hypertension; Translations: [Essential (primary) hypertension]Onset: 05-21-2021 Resolved: 28-61-6288KkerswoSgricsywqafrt and screening for infectious disease (1 source)Encounter for screening for human papillomavirus (HPV); Translations: [ENC SCREENING HUMAN PAPILLOMAVIRUS]Onset: 89-09-6338OokeddsmVbdlxyzbbpvn; infection of eye (except that caused by tuberculosis or sexually transmitteddisease) (2 sources)Unspecified acute conjunctivitis, right eye; Translations: [Unspecified acute conjunctivitis, bilateral]EpisodicLymphadenitis (10 sources)Cervical lymphadenopathy; Translations: [Localized enlarged lymph nodes]47-49-9199NlaeggixYvohfwjoc disorders (3 sources)Menometrorrhagia; Translations: [Excessive and frequent menstruation with irregular cycle]67-45-9202FhzadqhCgsa disorders (1 source)Mood disorders; Translations: [Depression, unspecified]Onset: 21-66-5235Eehuamsdmiz deficiencies (9 sources)Vitamin D deficiency; Translations: [Vitamin D deficiency, unspecified]Onset: 121502-89-0708TbevfzyVhoyg aftercare (2 sources)Patient encounter status; Translations: [Encounter for follow-up examination after completed treatment for conditions other than malignant neoplasm]35-29-8969HwmsacvbJfmuw aftercare (2 sources)Postoperative visit; Translations: [Encounter for other specified surgical aftercare]89-47-1906LeeerdzbPuqzr connective tissue disease (11 sources)Pain in right heel; Translations: [Pain in right foot]EpisodicOther female genital disorders (1 source)Abnormal uterine bleeding; Translations: [Abnormal uterine and vaginal bleeding, unspecified]63-94-5012UyrslpsUoehd lower respiratory disease (2 sources)WheezingEpisodicOther screening for suspected conditions (not mental disorders or infectious disease) (18 sources)Encounter for screening for malignant neoplasm of cervix; Translations: [Patient encounter status]Onset: 97-46-6612FqzsnxlvTtipjggao- related disorders (20 sources)Nicotine dependence; Translations: [Nicotine dependence, unspecified, uncomplicated]Chronic Past or Other Problems Problem ClassificationProblemDateDocumented DateEpisodic/ChronicResidual codes; unclassified (1 source)Edema, unspecifiedOnset: 11-19-2021 Resolved: 48-18-4712Lnfzdipg Results Test NameValueInterpretationReference RangeFacilityALL TYPE AND SCREENon 57-21-8238ZAF and Rh group Nom (Bld)Blood group O Rh(D) positiveNOMS HealthcareL on 03-11-2025L Specimen: [id number] Received: 03/11/25 Status: ASHLEY Tavarestiti Num: [id number] Spec Type: Surgical Subm Dr: Beni Carvalho Tissues: A Endometrium - Curettings (ENDOMETRIAL CURETTINGS) Procedures: HE/2, Gross/Micro L4 Age/ Patient Sex Location Account Attending Physician Ann Marie Posadas 45/F LABELL [id number] Beni Carvalho SPEC NUM: [id number] RECD: 03/11/25 STATUS: ASHLEY HAWA NUM: [id number] MARTINA: 03/11/[address]: Beni Carvalho ENTERED: 03/11/[address]: Sebas Zelaya SPEC TYPE: Surgical DEPT: MAMIE HERNANDEZ ENTERED BY: [id number] RECV BY: [id number] ORDERED: HE/2, Gross/Micro L4 ORDERED: , Gross/Micro [...] submitted in a single cassette. (1, ns, [id number]) Microscopic Description Microscopic examination is performed. Specimen: [id number] Received: 03/11/25 Status: ASHLEY Hawa Num: [id number] Spec Type: Surgical Subm Dr: Beni Carvalho Tissues: A Endometrium - Curettings (ENDOMETRIAL CURETTINGS) Procedures: , Gross/Micro L4 Patient: Ann Marie Posadas [id number] (Continued) Specimen: [id number] Received: 03/11/25 (Continued) Signed (signature on file) Vineet Zuñiga MD 03/14/25 1402 Specimen: [id number] Received: 03/11/25 Status: ASHLEY Hawa Num: [id number] Spec Type: Surgical Subm Dr: Beni Carvalho Tissues: A Endometrium - Curettings (ENDOMETRIAL CURETTINGS) Procedures: Mana MA/Sergo Carroll Patient: Ann Marie Posadas [id number] (Continued) Specimen: [id number] Received: 03/11/25 (Continued) CPT Codes 02073 Specimen: [id number] Received: 03/11/25 Status: ASHLEY Sidhu Num: [id number] Spec Type: Surgical Subm Dr: Beni Carvalho Tissues: A Endometrium - Curettings (ENDOMETRIAL CURETTINGS) Procedures: HE/Mana Bob/Sergo L4 Patient: Ann Marie Posadas [id number] (Continued) Signed (signature on file) Vineet Zuñiga MD 03/14/25 1402Normal [facility] Physician GroupNo Panel Informationon 57-69-0664Ugr [facility] ,CLINISYNCNOMS HealthcarePACKED RED BLOOD CELLSon 37-58-4327HDPOUT RED BLOOD CELLSNOMS HealthcareComment on above:[id number] ON TRANSFUSED 03/11/25 1059 ALL BASIC METABOLIC PANELon 41-94-4968Dzfrn gap [Moles/Vol]14.6 mmol/LNOMS HealthcareCalcium [Mass/Vol]8.8 mg/dL8.5 - 10.1 mg/dLNOMS HealthcareChloride [Moles/Vol]104 mmol/L98 - 107 mmol/LNOMS HealthcareCO2 [Moles/Vol]25.5 mmol/L 21.0 - 32.0 mmol/LNOMS HealthcareCreatinine [Mass/Vol]0.45 mg/dLLow0.55 - 1.02 mg/dLNONM HealthcareGFR/1.73 sq M.predicted CKD-EPI (S/P/Bld) [Vol rate/Area]>60 >=60 mL/min/1.73m 2NOMS HealthcareGlucose [Mass/Vol]96 mg/dL74 - 106 mg/dLNONM HealthcareInterpretation and review of laboratory resultsAbnormalNONM Healthcare Potassium [Moles/Vol]4.1 mmol/L3.5 - 5.1 mmol/LNOMS HealthcareSodium [Moles/Vol] 140 mmol/L136 - 145 mmol/LNOMS HealthcareTBH EGFR-NON AF GUATEMALAN>60>=60 mL/min/1.73m 2NOMS HealthcareUrea nitrogen [Mass/Vol]8 mg/dL7.0 - 18.0 mg/dLNONM HealthcareUrea nitrogen/Creatinine [Mass ratio]17.8 mg/mgNONM Healthcare CLINISYNCNONM HealthcareECG 12-LEADon 34-77[place]15[place], [place] [address] Electrocardiograph Report Signed Patient: ANN MARIE POSADAS MR#: [id number] : 1980 Acct:[id number] Age/Sex: 45 / F ADM Date: 03/02/25 Loc: PST Attending Dr: Beni Carvalho D.O. Ordering Physician: Beni Carvalho D.O. 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 Signed By: 03/02/251118 DD/ 7 TD/TT: Travel Agency Manager:ARVINDHRadiologJenna garcia, - 03/02/2025 [place] [address] Electrocardiograph Report Signed Patient: ANN MARIE POSADAS MR#: [id number] : 1980 Acct:[id number] Age/Sex: 45 / F ADM Date: 03/02/25 Loc: [facility] Attending Dr: Beni Carvalho D.O. Ordering Physician: Beni Carvalho D.O. 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 Signed By: 03/02/251118 DD/ 7 TD/TT: Travel Agency Manager: ANU SchneiderRadiology Study observation (narrative)ANU HealthcareECG 12-LEAD Ordered By: Radiologist Radiology on 23-70-3721[facility] Work Phone: PATHOLOGY REQUEST FOR LAB CORPon 41-82-8821XJSWJEOJH REQUEST FOR LAB CORPNOMS HealthcareComment on above:See report. Scanned copy available in EMR.EMBXWadsworth-Rittman HospitalEndometrial biopsyon 02-16-2025 Mela Mcneil LPN 02/16/2025 4:18 [...] pathology Patient tolerance: tolerated well, no immediate complicationsParkland Health Center Endometrial biopsyOrdered By: Mela Mcneil on 58-10-5910SNYCParkland Health CenterHCG ( test) Ql (U)Ordered By: Tsering Tabor on 06-01-5313Tzzsgpsqzolymy and review of laboratory resultsNoalParkland Health Center Work Phone: preg Test, UrNegativeNegativeParkland Health Center Work Phone: Media TempleS[facility] Work Phone: no Panel InformationOrdered By: Beni Carvalho on 57-10-5031Dsuafbaepvgfd Pathology TestSee [facility] Medical CenterComment on above:See report. Scanned copy available in EMR.Pathology Request for Lab Corpon 55-67-0872Sbnwceyzs Request for Lab [facility] Physician GroupComment on above:Order Comment: EMBXResult Comment: See report. Scanned copy available in EMR. PERFORMED BY: [place] [address] PATHOLOGIST GREEN INSPECTOR TIEN SINGH M.D.Performed By: #### PATH TO [facility] #### [place] [address] USAA1C with Estimated Average Gluon 38-55-9834Crciuja [Mass/Vol]88 mg/dLNoKindred Hospital - Greensboro Physician GroupComment on above:Result Comment: PERFORMED BY: [place] [address] PATHOLOGIST GREEN INSPECTOR TIEN SINGH M.D.Performed By: #### TSH3, A1C WTH eA, CMP, LIPID, [id number], CBC #### [place] [address] USAAlanine aminotransferase [Enzymatic activity/volume] in Serum or PlasmaOrdered By: Shen Esparza on 47-35-9263EQZ [Catalytic activity/Vol] 13 U/LNormal7-52Community Memorial HospitalComment on above:Performed By: #### TSH3, A1C WTH eA, CMP, LIPID, [id number], CBC #### [place] [address] USAAlbumin [Mass/volume] in Serum or Plasma by Bromocresol green (BCG) dye binding methoOrdered By: Shen Esparza on 62-75-9206Npwfzdy BCG dye [Mass/Vol]4.1 g/dL3.5-5.7FBucyrus Community HospitalAlkaline phosphatase [Enzymatic activity/volume] in Serum or PlasmaOrdered By: Shen Esparza on 60-95-4769QJF [Catalytic activity/Vol]101 U/TXlcssd91-693GnhgkqmhaCommunity Memorial HospitalComment on above:Performed By: #### TSH3, A1C WTH eA, CMP, LIPID, [id number], CBC #### [facility] [address] [place] [address] USAAspartate aminotransferase [Enzymatic activity/volume] in Serum or PlasmaOrdered By: Shen Esparza on 04-50-9347HXZ [Catalytic activity/Vol] 23 U/LMkgacx73-48YqwcqqiqcCommunity Memorial HospitalComment on above:Performed By: #### TSH3, A1C WTH eA, CMP, LIPID, [id number], CBC #### [place] [address] USABasophils [#/volume] in Blood by Automated countOrdered By: Shen Esparza on 90-34-3595Qjjqudgij (Bld) [#/Vol]0.1 10*3/uLNormal0.0-0.2 Community Memorial HospitalComment on above:Result Comment: PERFORMED BY: [place] [address] PATHOLOGIST GREEN INSPECTOR TIEN SINGH M.D.Performed By: #### TSH3, A1C WTH eA, CMP, LIPID, [id number], CBC #### [place] [address] USABasophils/100 leukocytes in Blood by Automated count Ordered By: Shen Esparza on 40-46-4521Uyitzpaie/100 WBC (Bld)0.9 %Normal.Community Memorial HospitalComment on above:Performed By: #### TSH3, A1C WTH eA, CMP, LIPID, [id number], CBC #### [place] [address] USABilirubin.total [Mass/volume] in Serum or PlasmaOrdered By: Shen Esparza on 71-16-5660Gsdkrvidw [Mass/Vol]0.4 mg/dLNormal0.3-1.0Community Memorial HospitalComment on above:Performed By: #### TSH3, A1C WTH eA, CMP, LIPID, [id number], CBC #### [place] [address] USABlood estimated average glucose determination by estimation from glycated hemoglobinOrdered By: Shen Esparza on 43-61-0490Otwicaz glucose Estimated from glycated hemoglobin (Bld) [Mass/Vol]88 mg/dLCommunity Memorial HospitalCalcium [Mass/volume] in Serum or PlasmaOrdered By: Shen Esparza on 21-81-3778Vwijfxp [Mass/Vol]8.8 mg/dLNormal8.6-10.3FBucyrus Community HospitalComment on above:Performed By: #### TSH3, A1C WTH eA, CMP, LIPID, [id number], CBC #### [place] [address] USACarbon dioxide, total [Moles/volume] in Serum or Plasma Ordered By: Shen Esparza on 82-15-8751ZA4 [Moles/Vol]26.8 mmol/ZEqqims50.0-31.0 Community Memorial HospitalComment on above:Performed By: #### TSH3, A1C WTH eA, CMP, LIPID, [id number], CBC #### [facility] [address] [place] [address] USAChloride [Moles/volume] in Serum or PlasmaOrdered By: Shen Esparza on 71-77-0074Yqmoieah [Moles/Vol]104 mmol/PSwlaja49-502JmfnouprrCommunity Memorial HospitalComment on above:Performed By: #### TSH3, A1C WTH eA, CMP, LIPID, [id number], CBC #### [facility] [address] [place] [address] USACholesterol [Mass/volume] in Serum or PlasmaOrdered By: Shen Esparza on 75-84-8588Xkmorzuwagt [Mass/Vol]165 mg/rUOspupt459-823HdufebhfxCommunity Memorial HospitalComment on above:Chol less than 200 mg/dl low riskChol 201-239 mg/dl borderline riskChol 240 mg/dl and greater high riskResult Comment: Chol less than 200 mg/dl low risk Chol 201-239 mg/dl borderline risk Chol 240 mg/dl and greater high riskPerformed By: #### TSH3, A1C WTH eA, CMP, LIPID, [id number], CBC #### [facility] [address] [place] [address] USACholesterol in HDL [Mass/volume] in Serum or PlasmaOrdered By: Shen Esparza on 16-73-7013Rfmumpmlipk in HDL [Mass/Vol]52 mg/mIKiojxm04-16 Community Memorial HospitalComment on above:HDL CHOL ATP-III CLASSIFICATION Cardiovascular RiskHDL > or equal to 60 mg/dL LOWHDL < 40 mg/dL HIGHResult Comment: HDL CHOL ATP-III CLASSIFICATION Cardiovascular Risk HDL > or equal to 60 mg/dL LOW HDL < 40 mg/dL HIGHPerformed By: #### TSH3, A1C WTH eA, CMP, LIPID, [id number], CBC #### [facility] [address] [place] [address] USACholesterol in LDL Calc [Mass/Vol]Ordered By: Shen Esparza on 77-22-8060Xkfbqnfyall in LDL [Mass/Vol]60 mg/dL0-100Community Memorial HospitalComment on above:LDL ATP III CLASSIFICATIONLDL less than 100 mg/dL OptimalLDL 100-129 mg/dL Near or above obdyyaqXXX848-193 mg/dL Borderline highLDL 160-189 mg/dL HighLDL greater than 189 mg/dL Very highCholesterol in VLDL Calc [Mass/Vol]Ordered By: Shen Esparza on 10-01-2832Iummmgjlyzt in VLDL [Mass/Vol]52 mg/dLCommunity Memorial HospitalComplete Blood Count Auto Diffon 53-93-1564Modo Corpuscular HGB Conc34.3 g/wEFyatvp02.0-35.0The [facility] Physician GroupComment on above:Performed By: #### TSH3, A1C WTH eA, CMP, LIPID, [id number], CBC #### [facility] [address] [place] [address] USANRBC%0.2 /100{WBC}Normal0-0.5The [facility] Physician Group Comment on above:Performed By: #### TSH3, A1C WTH eA, CMP, LIPID, [id number], CBC #### [facility] [address] [place] [address] USAWhite Blood Count6.4 [CFU]/mLNormal3.8-11.6The [facility] Physician GroupComment on above:Performed By: #### TSH3, A1C WTH eA, CMP, LIPID, [id number], CBC #### [facility] [address] [place] [address] USAComprehensive Metabolic Panelon 84-86-4328Sgxobcq [Mass/Vol]4.1 g/dLNormal3.5-5.7The [facility] Physician GroupComment on above: Performed By: #### TSH3, A1C WTH eA, CMP, LIPID, [id number], CBC #### [facility] [address] [place] [address] USAGFR/1.73 sq M.predicted MDRD (S/P/Bld) [Vol rate/Area] mL/min/{1.73_m2}NormalThe [facility] Physician GroupComment on above:Performed By: #### TSH3, A1C WTH eA, CMP, LIPID, [id number], CBC #### [facility] [address] [place] [id number] USACreatinine [Mass/volume] in Serum or PlasmaOrdered By: Shen Esparza on 92-48-6408Plfmduantv [Mass/Vol]0.49 mg/dLLow0.60-1.20Community Memorial HospitalComment on above:Performed By: #### TSH3, A1C WTH eA, CMP, LIPID, [id number], CBC #### [facility] [address] [place] [id number] USAEosinophils [#/volume] in Blood by Automated countOrdered By: Shen Esparza on 17-38-6448Rfcxnjklcon (Bld) [#/Vol]0.2 10*3/uLNormal0.0-0.45 [facility] Memorial HospitalComment on above:Performed By: #### TSH3, A1C WTH eA, CMP, LIPID, [id number], CBC #### [facility] [address] [place] [id number] USAEosinophils/100 leukocytes in Blood by Automated count Ordered By: Shen Esparza on 57-39-4314Sxzitseeedf/100 WBC (Bld)2.6 %Normal. Community Memorial HospitalComment on above:Performed By: #### TSH3, A1C WTH eA, CMP, LIPID, [id number], CBC #### [facility] [address] [place] [id number] USAErythrocyte distribution width [Ratio] by Automated count Ordered By: Shen Esparza on 87-33-5016Cxtudmcsmfp distribution width (RBC) [Ratio] 12.0 %Dwwxhg54.9-15.3FBucyrus Community HospitalComment on above:Performed By: #### TSH3, A1C WTH eA, CMP, LIPID, [id number], CBC #### [facility] [address] [place] [id number] USAErythrocytes [#/volume] in Blood by Automated countOrdered By: Shen Esparza on 33-78-7377LOB (Bld) [#/Vol]3.86 10*6/uLNormal3.60-5.00 [facility] HospitalComment on above:Performed By: #### TSH3, A1C WTH eA, CMP, LIPID, [id number], CBC #### [facility] [address] [place] [id number] USAGlomerular filtration rate [Volume Rate/Area] in Serum, Plasma or Blood by CreatinineOrdered By: Shen Esparza on 50-08-2740Wcnpmtbxyg filtration rate [Volume Rate/Area] in Serum, Plasma or Blood by Creatinine> 60.0 mL/MinCommunity Memorial HospitalGlucose [Mass/volume] in Serum or Plasma Ordered By: Shen Esparza on 21-77-2126Rcxhldj [Mass/Vol]89 mg/xDPixiyc15-063 [facility] HospitalComment on above:ADA recommended reference rangeRandom Glucose [...] #### TSH3, A1C WTH eA, CMP, LIPID, [id number], CBC #### [facility] [address] [id number] USAHematocrit [Volume Fraction] of Blood by Automated count Ordered By: Shen Esparza on 17-30-7794Lqjwihudot (Bld) [Volume fraction]34.9 % Mgkcsp18.0-46.4FBucyrus Community HospitalComment on above:Performed By: #### TSH3, A1C WTH eA, CMP, LIPID, [id number], CBC #### [facility] [address] [place] [address] USAHemoglobin A1c/Hemoglobin.total in BloodOrdered By: Shen Esparza on 51-81-7302AyT4e (Bld) [Mass fraction]4.7 %Normal4.3-5.6FBucyrus Community HospitalComment on above:Increased risk for diabetes: 5.7 - 6.4diabetes: >6.4glycemic control for adults with diabetes: <7.0Result Comment: Increased risk for diabetes: 5.7 - 6.4 diabetes: >6.4 glycemic control for adults with diabetes: <7.0Performed By: #### TSH3, A1C WTH eA, CMP, LIPID, [id number], CBC #### [facility] [address] [place] [address] USAHemoglobin [Mass/volume] in BloodOrdered By: Shen Esparza on 49-91-4962Epkjfzmlmh (Bld) [Mass/Vol]12.0 g/fWIjaqct10.8-15.4FBucyrus Community HospitalComment on above:Performed By: #### TSH3, A1C WTH eA, CMP, LIPID, [id number], CBC #### [facility] [address] [place] [address] USALeukocytes [#/volume] corrected for nucleated erythrocytes in Blood by Automated counOrdered By: Shen Esparza on 72-84-6968NJH corrected for nucl RBC Auto (Bld) [#/Vol]6.4 10*3/uL3.8-11.6FBucyrus Community Hospital Leukocytes [#/volume] in Blood by Automated countOrdered By: Shen Esparza on 82-59-9029XVO (Bld) [#/Vol]6.4 10*3/uLNormal3.8-11.6FBucyrus Community HospitalComment on above:Performed By: #### TSH3, A1C WTH eA, CMP, LIPID, [id number], CBC #### [facility] [address] [place] [address] USALipid Panelon 82-89-1213WVM Cholesterol,Wfoythljiu88 mg/dL Normal0-100The [facility] Physician GroupComment on above:Result Comment: LDL ATP III CLASSIFICATION LDL less than 100 mg/dL Optimal LDL 100-129 mg/dL Near or above optimal LDL 130-159 mg/dL Borderline high LDL 160-189 mg/dL High LDL greater than 189 mg/dL Very highPerformed By: #### TSH3, A1C WTH eA, CMP, LIPID, [id number], CBC #### [facility] [address] [place] [address] USATriglyceride w/Ecjlpy314 mg/dLHigh0-149The [facility] Physician GroupComment on above:Result Comment: TRIG ATP III CLASSIFICATION TRIG less than 150 mg/dL Normal TRIG 150-199 mg/dL Borderline high TRIG 200-500 mg/dL High TRIG greater than 500 mg/dL Very high Standard traceable to the Center for Disease Conrtrol and Prevention (CDC) test method.Performed By: #### TSH3, A1C WTH eA, CMP, LIPID, [id number], CBC #### [facility] [address] [place] [address] USAVLDL OIWOMJEXFMT98 mg/dLNormalThe [facility] Physician GroupComment on above:Performed By: #### TSH3, A1C WTH eA, CMP, LIPID, [id number], CBC #### [facility] [address] [place] [address] USALymphocytes [#/volume] in Blood by Automated countOrdered By: Shen Esparza on 31-85-9623Kmgkdojhddn (Bld) [#/Vol]2.3 10*3/uLNormal1.00-4.8 [facility] HospitalComment on above:Performed By: #### TSH3, A1C WTH eA, CMP, LIPID, [id number], CBC #### [facility] [address] [id number] USALymphocytes/100 leukocytes in Blood by Automated count Ordered By: Shen Esparza on 16-17-8130Ejynsnqnosm/100 WBC (Bld)35.1 %Normal. [facility] Memorial HospitalComment on above:Performed By: #### TSH3, A1C WTH eA, CMP, LIPID, [id number], CBC #### [facility] [address] [id number] USAMCH [Entitic mass] by Automated countOrdered By: Shen Esparza on 74-75-1075CNV (RBC) [Entitic mass]31.0 fdYzsadu90.7-34.3FBucyrus Community HospitalComment on above:Performed By: #### TSH3, A1C WTH eA, CMP, LIPID, [id number], CBC #### [facility] [address] [id number] USAHC Auto (RBC) [Mass/Vol]Ordered By: Shen Esparza on 19-75-2517LNLW (RBC) [Mass/Vol]34.3 g/dL32.0-35.0Community Memorial HospitalMCV [Entitic volume] by Automated countOrdered By: Shen Esparza on 90-91-5032VTU (RBC) [Entitic vol]90.4 sESeonxd22-415GcoygezjbCommunity Memorial HospitalComment on above:Performed By: #### TSH3, A1C WTH eA, CMP, LIPID, [id number], CBC #### [facility] [address] [place] [address] USAMonocytes [#/volume] in Blood by Automated countOrdered By: Shen Esparza on 60-86-6564Yaxcyplde (Bld) [#/Vol]0.4 10*3/uLNormal0.0-0.8 [facility] HospitalComment on above:Performed By: #### TSH3, A1C WTH eA, CMP, LIPID, [id number], CBC #### [facility] [address] [place] [address] USAMonocytes/100 leukocytes in Blood by Automated count Ordered By: Shen Esparza on 27-15-9206Kmpoytqyb/100 WBC (Bld)6.1 %Normal.Community Memorial HospitalComment on above:Performed By: #### TSH3, A1C WTH eA, CMP, LIPID, [id number], CBC #### [facility] [address] [place] [address] USANeutrophils [#/volume] in Blood by Automated countOrdered By: Shen Esparza on 17-22-3284Rwlajgfkcos (Bld) [#/Vol]3.6 10*3/uLNormal1.8-7.7 [facility] HospitalComment on above:Performed By: #### TSH3, A1C WTH eA, CMP, LIPID, [id number], CBC #### [facility] [address] [id number] USANeutrophils/100 leukocytes in Blood by Automated count Ordered By: Shen Esparza on 58-76-1553Fonwsfugnzs/100 WBC (Bld)55.3 %Normal. [facility] Memorial HospitalComment on above:Performed By: #### TSH3, A1C WTH eA, CMP, LIPID, [id number], CBC #### [facility] [address] [id number] USANo Panel InformationOrdered By: Shen Esparza on 01-25-2025 Pharmacy Creatinine Clearance (ChemN/AFBucyrus Community HospitalNucleated erythrocytes [Presence] in Blood by Automated countOrdered By: Shen Esparza on 70-95-6199Bilypmbfk RBC Auto Ql (Bld)0.2 /100{WBC}0-0.5FBucyrus Community HospitalPlatelet mean volume [Entitic volume] in Blood by Automated count Ordered By: Shen Esparza on 81-44-3822Cxecmsbz mean volume (Bld) [Entitic vol]7.5 fLNormal6.3-10.7FBucyrus Community HospitalComment on above:Performed By: #### TSH3, A1C WTH eA, CMP, LIPID, [id number], CBC #### [facility] [address] [id number] USAPlatelets [#/volume] in Blood by Automated countOrdered By: Shen Esparza on 04-21-0917Gfuxdmces (Bld) [#/Vol]270 10*3/hYAaiwij438-396 [facility] HospitalComment on above:Performed By: #### TSH3, A1C WTH eA, CMP, LIPID, [id number], CBC #### [facility] [address] [id number] USAPotassium [Moles/volume] in Serum or PlasmaOrdered By: Shen Esparza on 55-86-9693Jrhxzdaju [Moles/Vol]3.9 mmol/LNormal3.5-5.1FBucyrus Community HospitalComment on above:Performed By: #### TSH3, A1C WTH eA, CMP, LIPID, [id number], CBC #### [facility] [address] [place] [address] USAProtein [Mass/volume] in Serum or PlasmaOrdered By: Shen Esparza on 85-62-9747Xfcvefg [Mass/Vol]6.8 g/dLNormal6.4-8.9[facility] Memorial HospitalComment on above:Performed By: #### TSH3, A1C WTH eA, CMP, LIPID, [id number], CBC #### [facility] [address] [id number] USASerum globulin measurement by calculation (mass/volume) Ordered By: Shen Esparza on 27-18-8223Zykouhbd (S) [Mass/Vol]2.7 g/dLNormal [facility] HospitalComment on above:Performed By: #### TSH3, A1C WTH eA, CMP, LIPID, [id number], CBC #### [facility] [address] [id number] USASerum or plasma albumin/globulin mass ratioOrdered By: Shen Esparza on 05-37-5289Tjskgwu/Globulin [Mass ratio]1.5 {ratio}NormalCommunity Memorial HospitalComment on above:Performed By: #### TSH3, A1C WTH eA, CMP, LIPID, [id number], CBC #### [facility] [address] [id number] USASerum or plasma anion gap determinationOrdered By: Shen Esparza on 15-44-9090Pbdki gap [Moles/Vol]12.1 mmol/LNormal6.0-15.0[facility] Memorial HospitalComment on above:Performed By: #### TSH3, A1C WTH eA, CMP, LIPID, [id number], CBC #### [facility] [address] [place] [phone] USASerum or plasma total cholesterol/high density lipoprotein (HDL) cholesterol mass ratOrdered By: Shen Esparza on 01-25-2025 Cholesterol.total/Cholesterol in HDL [Mass ratio]3.2 {ratio}Normal<5.0Community Memorial HospitalComment on above:Performed By: #### TSH3, A1C WTH eA, CMP, LIPID, [id number], CBC #### [facility] [address] [place] [address] USASodium [Moles/volume] in Serum or PlasmaOrdered By: Shen Esparza on 06-71-7072Qzgefv [Moles/Vol]139 mmol/LRtfveh682-548PoybnpedhCommunity Memorial HospitalComment on above:Performed By: #### TSH3, A1C WTH eA, CMP, LIPID, [id number], CBC #### [facility] [address] [place] [address] USAThyrotropin [Units/volume] in Serum or PlasmaOrdered By: Shen Esparza on 97-80-9861MNT Qn2.46 m[IU]/LNormal0.45-5.33[facility] Memorial HospitalComment on above:Performed By: #### TSH3, A1C WTH eA, CMP, LIPID, [id number], CBC #### [facility] [address] [place] [address] USATriglyceride [Mass/volume] in Serum or PlasmaOrdered By: Shen Esparza on 00-25-7424Ypoevgycarji [Mass/Vol]263 mg/dLHigh0-149[facility] HospitalComment on above:TRIG ATP III CLASSIFICATIONTRIG less than 150 mg/dL NormalTRIG 150-199 mg/dL Borderline highTRIG 200-500 mg/dL High TRIG greater than 500 mg/dL Very highStandard traceable to the Center for Disease Conrtrol and Prevention (CDC) test method.Urea nitrogen [Mass/volume] in Serum or PlasmaOrdered By: Shen Esparza on 96-13-3301Pmrk nitrogen [Mass/Vol]8 mg/dLNormal7-25[facility] Memorial HospitalComment on above:Performed By: #### TSH3, A1C WTH eA, CMP, LIPID, [id number], CBC #### [facility] [address] [place] [address] USAVitamin D 25 Hydroxy Totalon 50-80-7705Pejpyzr D 25 Hydroxy Total15.1 ng/zQEtr16-296Axw [facility] Physician GroupComment on above: Result Comment: VITAMIN D STATUS 25(OH)VITAMIN D RANGE (ng/mL) Deficient <20 Insufficient 20 to <30 Sufficient 30 to 100 Reference: Margarita Slade, Graham ACUÑA, et al. Evaluation,treatment, and prevention of vitamin D deficiency; an Endocrine Society clinical practice guideline. JCEM. 2010; 96(7):191-. PERFORMED BY: [place] [address] PATHOLOGIST GREEN INSPECTOR TIEN SINGH M.D.Performed By: #### TSH3, A1C WTH eA, CMP, LIPID, [id number], CBC #### [facility] [address] [place] [address] USAVitamin D+Metabolites [Mass/volume] in Serum or Plasma Ordered By: Shen Esparza on 36-77-5116Pufznlo D+Metabolites [Mass/Vol]15.1 ng/mL Jmh78-813GczfgepyrCommunity Memorial HospitalComment on above:VITAMIN D STATUS 25(OH)VITAMIN D RANGE (ng/mL) Deficient <20 Insufficient 20 to <17Gkmekdsxbu65 to 100Reference: Margarita Slade, Graham ACUÑA, et al. Evaluation,treatment, and prevention of vitamin D deficiency; an Endocrine Society clinical practice guideline. JCEM. 2010; 96(7):191-.Urine Culture on 52-88-8954Ymaxilfi identified Cx Nom (U)>100,000 colonies/ml mixed bacterial skin contaminants 2 Days PERFORMED BY: [address] [address] PATHOLOGIST GREEN INSPECTOR TIEN SINGH M.D.NormalThe [facility] Physician GroupComment on above: Performed By: #### CUU #### [facility] [address] [place] [address] USAUrine cultureOrdered By: Lucio Goldstein on 01-08-2025 Bacteria identified Cx Nom (U)2 DaysCommunity Memorial HospitalMM TOMOSYNTHESIS SCREENING BIon 44-96-3610Uww[address] [place] [id number] Mammography Report Signed Patient: ANN MARIE POSADAS MR#: [id number] : 1980 Acct:[id number] Age/Sex: 44 / F ADM Date: 08/19/24 Loc: MAMMO Attending Dr: Vera Fatima Ordering Physician: Vera Fatima Results: Date of Service: 08/19/24 Follow Up: Procedure(s): MM tomosynthesis screening BI Accession Number(s): [id number] cc: Vera Fatima; Physician,Non-Staff M.DAdolfo Patient Name: ANN MARIE POSADAS MR#: [id number] : 1980 Exam Date: 08/19/2024 Ordering Doctor: [...] at age 59. LOCATION: [facility] BREAST COMPOSITION: The breasts are extremely [...] Signed By: 08/19/24 1503 DD/ 1502 TD/TT: Travel Agency Manager:ARVINDHRadiology, Radiologist, - 08/19/2024 [address] [place] [id number] Mammography Report Signed Patient: ANN MARIE POSADAS MR#: [id number] : 1980 Acct:[id number] Age/Sex: 44 / F ADM Date: 08/19/24 Loc: MAMMO Attending Dr: Vera Fatima Ordering Physician: Vera Fatima Results: Date of Service: 08/19/24 Follow Up: Procedure(s): MM tomosynthesis screening BI Accession Number(s): [id number] cc: Vera Fatima; Physician,Non-Staff M.D. Patient Name: ANN MARIE POSADAS MR#: [id number] : 1980 Exam Date: 08/19/2024 Ordering Doctor: [...] at age 59. LOCATION: [facility] BREAST COMPOSITION: The breasts are extremely [...] Signed By: 08/19/24 1503 DD/ 1502 TD/TT: Travel Agency Manager: ANU HealthcareRadiology Study observation (narrative)NOM HealthcareMM TOMOSYNTHESIS SCREENING BIOrdered By: Radiologist Radiology on 21-38-9797JUMS Healthcare Work Phone: IGP,APTIMA HPV,AGE GDLNon 01-69-5852ZCA GDLN ACOG TESTINGNote.NOMS HealthcareComment on above:TESTS RESULT FLAG UNITS REF RANGE LAB Clinician Provided Cytology Information Source.............Cervix;Endocervix No. of containers..01 ThinPrep Vial Age Genevao ACOG Regina... 3065 01 FLAG LEGEND: L-Low Normal,H-High Normal,LL-Alert Low,HH-Alert High <-Panic Low,>-Panic High,A-Abnormal,AA-Critical Abnormal Performed at: 01 [address] [address] Shannon Marmolejo MD, HPV APTIMANegativeNegativeNOMS HealthcareComment on above:This nucleic acid amplification test detects fourteen high- risk HPV types (16,18,31,33,35,39,45,51,52,56,58,59,66,68) without differentiation. Performed at: = - [address] [id number] Warp Tension Tester: Shannon Marmolejo MD, Phone: [phone] Performed at: [address] [id number] Warp Tension Tester: Shannon Marmolejo MD, Phone: [phone] IGP, APTIMA HPV, RFX 16/18,45Note.NOMS HealthcareComment on above:TESTS RESULT FLAG UNITS REF RANGE LAB DIAGNOSIS: 02 NEGATIVE FOR INTRAEPITHELIAL LESION OR MALIGNANCY. Specimen adequacy: 02 Satisfactory for evaluation. Endocervical and/or squamous metaplastic cells (endocervical component) are present. Performed by: 02 Flori Burch, Electrical Lineman ([facility]) . 02 Note: Note 02 [...] <-Panic Low,>-Panic High,A-Abnormal,AA-Critical Abnormal Performed at: [address] [address] Shannon Marmolejo MD, BRUSH-SPATULA CERVIX ENDOCERVIX CLINISYNCNOMS HealthcareAlanine aminotransferase [Enzymatic activity/volume] in Serum or PlasmaOrdered By: Shen Esparza on 59-10-5681GAH [Catalytic activity/Vol] 19 U/L7-52Community Memorial HospitalAlbumin [Mass/volume] in Serum or Plasma by Bromocresol green (BCG) dye binding methoOrdered By: Shen Esparza on 88-11-2321Qorlalh BCG dye [Mass/Vol]4.3 g/dL3.5-5.7FBucyrus Community HospitalAlkaline phosphatase [Enzymatic activity/volume] in Serum or PlasmaOrdered By: Shen Esparza on 28-48-0422QGX [Catalytic activity/Vol]97 U/I10-275DyafpwrnfCommunity Memorial HospitalAspartate aminotransferase [Enzymatic activity/volume] in Serum or PlasmaOrdered By: Shen Esparza on 06-93-6223KQH [Catalytic activity/Vol] 29 U/G91-94RzdneiqhvCommunity Memorial HospitalBasophils Auto (Bld) [#/Vol]Ordered By: Shen Esparza on 31-74-0594Gaeukrnxb (Bld) [#/Vol]0.1 10*3/uL0.0-0.2FBucyrus Community HospitalBasophils/100 WBC Auto (Bld)Ordered By: Shen Esparza on 23-57-9607Tfpgkncdw/100 WBC (Bld)0.8 %.[facility] Bilirubin.total [Mass/volume] in Serum or PlasmaOrdered By: Shen Esparza on 86-49-6245Czwcvhadk [Mass/Vol]0.5 mg/dL0.3-1.0[facility] Calcium [Mass/volume] in Serum or PlasmaOrdered By: Shen Esparza on 01-14-2024 Calcium [Mass/Vol]9.0 mg/dL8.6-10.3FBucyrus Community HospitalCarbon dioxide, total [Moles/volume] in Serum or PlasmaOrdered By: Shen Esparza on 72-33-1576QH8 [Moles/Vol]27.6 mmol/L21.0-31.0[facility] Chloride [Moles/volume] in Serum or PlasmaOrdered By: Shen Esparza on 01-14-2024 Chloride [Moles/Vol]107 mmol/V39-271WwhttbiflCommunity Memorial HospitalCholesterol [Mass/volume] in Serum or PlasmaOrdered By: Shen Esparza on 34-19-8576Chjssasbodr [Mass/Vol]136 mg/aLWgo268-769GrznruwzfCommunity Memorial HospitalComment on above: Chol less than 200 mg/dl low riskChol 201-239 mg/dl borderline riskChol 240 mg/dl and greater high riskCholesterol in LDL Calc [Mass/Vol]Ordered By: Shen Esparza on 08-66-8426Epcntvqsmqs in LDL [Mass/Vol]50 mg/dL0-100Community Memorial HospitalComment on above:LDL ATP III CLASSIFICATIONLDL less than 100 mg/dL OptimalLDL 100-129 mg/dL Near or above kqloqwcMID995-734 mg/dL Borderline highLDL 160-189 mg/dL HighLDL greater than 189 mg/dL Very highCholesterol in VLDL Calc [Mass/Vol]Ordered By: Shen Esparza on 63-23-2264Wqktdoxurip in VLDL [Mass/Vol]42 mg/dLCommunity Memorial HospitalCreatinine [Mass/volume] in Serum or PlasmaOrdered By: Shen Esparza on 23-27-8524Olqrttfhgi [Mass/Vol]0.55 mg/dLLow0.60-1.20Community Memorial HospitalEosinophils Auto (Bld) [#/Vol] Ordered By: Shen Esparza on 84-15-4808Jcoilrdoizn (Bld) [#/Vol]0.2 10*3/uL0.0-0.45 Community Memorial HospitalEosinophils/100 WBC Auto (Bld)Ordered By: Shen Esparza on 08-14-1495Lsltxmhcrrb/100 WBC (Bld)2.1 %.Community Memorial HospitalErythrocyte distribution width Auto (RBC) [Ratio]Ordered By: Shen Esparza on 43-43-7850Sjkwtgiqeum distribution width (RBC) [Ratio]11.9 %11.9-15.3FBucyrus Community HospitalGlobulin Calc (S) [Mass/Vol]Ordered By: Shen Esparza on 71-42-9969Txhtmbag (S) [Mass/Vol]2.4 g/dLCommunity Memorial Hospital Glucose [Mass/volume] in Serum or PlasmaOrdered By: Shen Esparza on 01-14-2024 Glucose [Mass/Vol]94 mg/eA21-522UtlfvupmlCommunity Memorial HospitalComment on above:ADA recommended reference rangeRandom Glucose Reference Range is dependent on time and content of last meal. Glucose of more than 200 mg/dL in a nonstressed, ambulatory subject supports the diagnosisof Diabetes Mellitus. Hematocrit Auto (Bld) [Volume fraction]Ordered By: Shen Esparza on 01-14-2024 Hematocrit (Bld) [Volume fraction]39.0 %34.0-46.4FBucyrus Community HospitalHemoglobin [Mass/volume] in BloodOrdered By: Shen Esparza on 01-14-2024 Hemoglobin (Bld) [Mass/Vol]13.7 g/dL11.8-15.4FBucyrus Community Hospital Leukocytes [#/volume] corrected for nucleated erythrocytes in Blood by Automated counOrdered By: Shen Esparza on 98-31-6256RAT corrected for nucl RBC Auto (Bld) [#/Vol]7.9 10*3/uL3.8-11.6FBucyrus Community HospitalLymphocytes Auto (Bld) [#/Vol]Ordered By: Shen Esparza on 26-20-2561Mvcvhwwieoq (Bld) [#/Vol]2.7 10*3/uL1.00-4.8Community Memorial HospitalLymphocytes/100 WBC Auto (Bld) Ordered By: Shen Esparza on 50-66-1827Bzubdqndvyh/100 WBC (Bld)34.4 %.[facility] Auto (RBC) [Entitic mass]Ordered By: Shen Esparza on 00-78-1604OGG (RBC) [Entitic mass]32.4 pg24.7-34.3FBucyrus Community HospitalMCHC Auto (RBC) [Mass/Vol]Ordered By: Shen Esparza on 87-89-0706KRYU (RBC) [Mass/Vol]35.2 g/tQEijj75.0-35.0Community Memorial HospitalMCV Auto (RBC) [Entitic vol]Ordered By: Shen Esparza on 65-78-4776TLF (RBC) [Entitic vol]92.1 fL 80-100Community Memorial HospitalMonocytes Auto (Bld) [#/Vol]Ordered By: Shen Esparza on 96-81-9584Uoybxcqhl (Bld) [#/Vol]0.4 10*3/uL0.0-0.8Community Memorial HospitalMonocytes/100 WBC Auto (Bld)Ordered By: Shen Esparza on 97-09-8330Vqszhvujm/100 WBC (Bld)5.1 %.[facility] Neutrophils Auto (Bld) [#/Vol]Ordered By: Shen Esparza on 32-68-9917Qrqjdqvjqkn (Bld) [#/Vol]4.5 10*3/uL1.8-7.7FBucyrus Community HospitalNeutrophils/100 WBC Auto (Bld)Ordered By: Shen Esparza on 89-62-9003Txlfsjdjwpq/100 WBC (Bld)57.6 %.Community Memorial HospitalNo Panel InformationOrdered By: Shen Esparza on 81-54-4162Ktwvbjorb GFR (CKD-EPI)> 60.0 mL/MinCommunity Memorial Hospital Pharmacy Creatinine Clearance (ChemN/AFBucyrus Community HospitalNucleated erythrocytes [Presence] in Blood by Automated countOrdered By: Shen Esparza on 39-87-3111Imjsliysz RBC Auto Ql (Bld)0.1 /100{WBC}0-0.5FBucyrus Community HospitalPlatelet mean volume Auto (Bld) [Entitic vol]Ordered By: Shen Esparza on 04-23-4566Hnxzofou mean volume (Bld) [Entitic vol]8.1 fL6.3-10.7 Community Memorial HospitalPlatelets Auto (Bld) [#/Vol]Ordered By: Shen Esparza on 08-97-1861Fuzbzrpqn (Bld) [#/Vol]216 10*3/pC968-834CtazvkrbrCommunity Memorial HospitalPotassium [Moles/volume] in Serum or PlasmaOrdered By: Shen Esparza on 14-74-7370Eqedjnolo [Moles/Vol]4.2 mmol/L3.5-5.1FBucyrus Community HospitalProtein [Mass/volume] in Serum or PlasmaOrdered By: Shen Esparza on 97-98-5798Pkderjz [Mass/Vol]6.7 g/dL6.4-8.9Community Memorial HospitalRBC Auto (Bld) [#/Vol]Ordered By: Shen Esparza on 82-46-8445RMO (Bld) [#/Vol]4.23 10*6/uL3.60-5.00[facility] Hospitalerum or plasma albumin/globulin mass ratioOrdered By: Shen Esparza on 44-56-7872Oeotlpy/Globulin [Mass ratio]1.8 {ratio}[facility] Hospitalerum or plasma anion gap determinationOrdered By: Shen Esparza on 35-93-0606Cgpmq gap [Moles/Vol]10.6 mmol/L6.0-15.0[facility] Hospitalerum or plasma high density lipoprotein (HDL) cholesterol measurementOrdered By: Shen Esparza on 01-14-2024 Cholesterol in HDL [Mass/Vol]43 mg/wS31-22ZwuvjhgtqCommunity Memorial Hospital Comment on above:HDL CHOL ATP-III CLASSIFICATION Cardiovascular RiskHDL > or equal to 60 mg/dL LOWHDL < 40 mg/dL HIGHSerum or plasma total cholesterol/high density lipoprotein (HDL) cholesterol mass ratOrdered By: Shen Esparza on 94-07-8225Gwhpprlmqfv.total/Cholesterol in HDL [Mass ratio]3.2 {ratio}<5.0 [facility] Hospitalodium [Moles/volume] in Serum or PlasmaOrdered By: Shen Esparza on 42-10-8708Mzftji [Moles/Vol]141 mmol/M411-344WwaabyrvkCommunity Memorial HospitalThyrotropin [Units/volume] in Serum or PlasmaOrdered By: Shen Esparza on 38-35-4220KXA Qn2.25 m[IU]/L0.45-5.33Community Memorial HospitalTriglyceride [Mass/volume] in Serum or PlasmaOrdered By: Shen Esparza on 50-38-3925Dvtrxmhjmosv [Mass/Vol]213 mg/dLHigh0-149Community Memorial HospitalComment on above:TRIG ATP III CLASSIFICATIONTRIG less than 150 mg/dL NormalTRIG 150-199 mg/dL Borderline highTRIG 200-500 mg/dL High TRIG greater than 500 mg/dL Very highStandard traceable to the Center for Disease Conrtrol and Prevention (CDC) test method.Urea nitrogen [Mass/volume] in Serum or Plasma Ordered By: Shen Esparza on 37-80-8864Kkql nitrogen [Mass/Vol]9 mg/dL7-25Community Memorial HospitalVitamin D+Metabolites [Mass/volume] in Serum or Plasma Ordered By: Shen Esparza on 85-40-2840Jurwhts D+Metabolites [Mass/Vol]18.2 ng/mL Mnz20-403HwbcbtjijCommunity Memorial HospitalComment on above:VITAMIN D STATUS 25(OH)VITAMIN D RANGE (ng/mL) Deficient <20 Insufficient 20 to <66Txxweuzpun40 to 100Reference: Ela MF,Margarita RAMOS, Graham ACUÑA, et al. Evaluation,treatment, and prevention of vitamin D deficiency; an Endocrine Society clinical practice guideline. JCEM. 2010; 96(7):1911-30.WBC Auto (Bld) [#/Vol]Ordered By: Shen Esparza on 65-61-2892PWX (Bld) [#/Vol]7.9 10*3/uL 3.8-11.6FBucyrus Community HospitalPAP ACOG PANEL 2: 30 to 67on 09-03-2021 ..NormalThe Cleveland Clinic Avon HospitalComment on above:Result Comment: Performed at: WB Performed By: #### [id number] #### [facility] [address] [address] [address] Carmelita Carlos Gdln ACOG Gyqxqwb41-99XdvfemBacFulton County Health CenterComment on above:Performed By: #### [id number] #### [facility] [address] [address] [address] Carmelita BecerraDIAGNOSIS:CommentThe Jewish HospitalComcaro center on above: Result Comment: NEGATIVE FOR INTRAEPITHELIAL LESION OR MALIGNANCY. Performed at: WBPerformed By: #### [id number] #### [facility] [address] [address] [address] Carmelita BecerraHPV AptimaNegativeNormalNegativeThe [facility] HospitalComcaro center on above:Result Comment: This nucleic acid amplification test detects fourteen high-risk HPV types (16,18,31,33,35,39,45,51,52,56,58,59,66,68) without differentiation. Performed at: =GPerformed By: #### [id number] #### [facility] [address] [place] [address] Dr. Carmelita BecerraMethodology:CommentFairfield Medical Center on above: Result Comment: This liquid based ThinPrep(R) pap test was screened with the use of an image guided system. Performed at: WBPerformed By: #### [id number] #### [facility] [address] [place] [address] Dr. Carmelita BecerraNote:CommentFairfield Medical Center on above:Result Comment: The Pap smear is a screening test designed to aid in the detection of premalignant and malignant conditions of the uterine cervix. It is not a diagnostic procedure and should not be used as the sole means of detecting cervical cancer. Both false-positive and false-negative reports do occur. . Performed at: WBPerformed By: #### [id number] #### [address] [address] Dr[address] Carmelita Simeonformed by:CommentFairfield Medical Center on above: Result Comment: Chikis Sparks, Electrical Lineman (ASCP) Performed at: WBPerformed By: #### [id number] #### [address] [address] Dr[address] Carmelita Schultz adequacy:CommentFairfield Medical Center on above:Result Comment: Satisfactory for evaluation. Endocervical and/or squamous metaplastic cells (endocervical component) are present. Performed at: WBPerformed By: #### [id number] #### [facility] [address] [place] [address] Dr. Carmelita Onofre ACOG PANEL 2: 30 to 65on 08-25-2021..NormalOhioHealth Van Wert [facility] on above:Result Comment: Performed at: WBPerformed By: #### [id number] #### [facility] [address] [place] [address] Dr. Carmelita Carlos Gdln ACOG Oeulhcx92-68DwodwlQocPomerene Hospital on above:Performed By: #### [id number] #### [facility] [address] [place] [address] Dr. Carmelita BecerraDIAGNOSIS:CommentFairfield Medical Center on above: Result Comment: NEGATIVE FOR INTRAEPITHELIAL LESION OR MALIGNANCY. Performed at: WBPerformed By: #### [id number] #### [facility] [address] [place] [address] Dr. Carmelita BecerraHPV AptimaNegativeNormalNegativeThe [facility] on above:Result Comment: This nucleic acid amplification test detects fourteen high-risk HPV types (16,18,31,33,35,39,45,51,52,56,58,59,66,68) without differentiation. Performed at: =GPerformed By: #### [id number] #### [facility] [address] [place] [address] Dr. Carmelita BecerraMethodology:CommentFairfield Medical Center on above: Result Comment: This liquid based ThinPrep(R) pap test was screened with the use of an image guided system. Performed at: WBPerformed By: #### [id number] #### [facility] [address] [place] [address] Dr. Carmelita BecerraNote:CommentFairfield Medical Center on above:Result Comment: The Pap smear is a screening test designed to aid in the detection of premalignant and malignant conditions of the uterine cervix. It is not a diagnostic procedure and should not be used as the sole means of detecting cervical cancer. Both false-positive and false-negative reports do occur. . Performed at: WBPerformed By: #### [id number] #### [facility] [address] [place] [address] Dr. Carmelita BceerraPerformed by:CommentNoPomerene Hospital on above: Result Comment: Chikis Sparks Electrical Lineman (ASCP) Performed at: WBPerformed By: #### [id number] #### [address] [address] Dr[address] Carmelita BecerraSpecimen adequacy:CommentFairfield Medical Center on above:Result Comment: Satisfactory for evaluation. Endocervical and/or squamous metaplastic cells (endocervical component) are present. Performed at: WBPerformed By: #### [id number] #### [facility] [address] [place] [address] Dr. Carmelita Becerra Vital Signs Date TimeVital SignValuePerforming BppgwbzsyKnvmhylv13-54-6198 15:37-0400Body .05 kgCorey Deven DO Work Phone: [facility] CenterCtlurbpdvh85-30-1247 13:05-0400Body .56 cmShen Roys DO Work Phone: [facility]09-04-2025 13:05-0400 Body mass index (BMI) [Ratio]32.4 kg/e9FyiwwShen Ryos DO Work Phone: [facility]09-04-2025 13:05-0400 Body jdlxai81.72 kgShen Roys DO Work Phone: [facility]09-04-2025 13:05-0400 Diastolic blood tmyhnzqi40 mm[Hg]Shen Roys DO Work Phone: [facility]09-04-2025 13:05-0400 Heart rate89 /minShen Roys DO Work Phone: [facility]09-04-2025 13:05-0400 Respiratory rate18 /minShen Roys DO Work Phone: [facility]09-04-2025 13:05-0400 SaO2% (BldA) [Mass fraction]99 %Shen Roys DO Work Phone: [facility]09-04-2025 13:05-0400 Systolic blood nhczaoao140 mm[Hg]Shen Roys DO Work Phone: [facility]08-25-2025 13:25-0400 Body tbojsz79.55 kgCorey Deven DO Work Phone: [facility] CenterSeekhhjyeo80-82-9847 13:25-0400Diastolic blood eiujelvq13 mm[Hg]Beni Mooreo DO Work Phone: [facility] CenterNnmzwckarb53-16-1661 13:25-0400Systolic blood gtjogfxk012 mm[Hg]Beni Mooreo DO Work Phone: [facility] CenterIiqlqkeipy82-80-1167 12:53-0500Body jgusni275.56 cmCommunity [facility] Hospital02-24-2025 12:53-0500Body mass index (BMI) [Ratio]33.6 kg/k1CicixgtufCommunity Memorial Hospital02-24-2025 12:53-0500Body .9 kgCommunity [facility]02-24-2025 12:53-0500Diastolic blood zujknwcq03 mm[Hg][facility]02-24-2025 12:53-0500 Heart rate72 /[facility]02-24-2025 12:53-0500 Respiratory rate16 /[facility]02-24-2025 12:53-0500 SaO2% (BldA) [Mass fraction]98 %[facility]02-24-2025 12:53-0500Systolic blood pjrbyjpz530 mm[Hg][facility] 07-15-2024 10:46-0500Body kgVera TUBBS Work Phone: [facility] CenterNudqgnvhkt00-02-8431 10:46-0500Diastolic blood uefxgyxe72 mm[Hg]Vera TUBBS Work Phone: [facility] CenterGuovvnfeup86-89-0013 10:46-0500Systolic blood mnvlofgn841 mm[Hg]Vera TUBBS Work Phone: [facility] CenterUwpvdkbstt36-00-7911 13:10-0400Body zlzxka376.56 cmDO Shen Esparza Work Phone: [facility]08-22-2024 13:10-0400 Body mass index (BMI) [Ratio]74.9 kg/m2DO Shen Esparza Work Phone: [facility]08-22-2024 13:10-0400 Body aqjhqq930 kgDO Shen Esparza Work Phone: [facility]08-22-2024 13:10-0400 Diastolic blood dwrufrqk49 mm[Hg]DO Shen Esparza Work Phone: [facility]08-22-2024 13:10-0400 Heart rate66 /minDO Shen Esparza Work Phone: [facility]08-22-2024 13:10-0400 Respiratory rate16 /minDO Shen Esparza Work Phone: [facility]08-22-2024 13:10-0400 SaO2% (BldA) [Mass fraction]98 %DO Shen Esparza Work Phone: [facility]08-22-2024 13:10-0400 Systolic blood ffuhcrmd258 mm[Hg]DO Shen Esparza Work Phone: [facility]02-22-2024 13:36-0500 Body koijrj063.56 cmCommunity Memorial Hospital02-22-2024 13:36-0500Body mass index (BMI) [Ratio]33.7 kg/i7StdxogkcbCommunity Memorial Hospital02-22-2024 13:36-0500Body zibypc34.35 kgCommunity Memorial Hospital02-22-2024 13:36-0500Diastolic blood katkkmvt28 mm[Hg][facility] 07-17-2023 13:36-0500Heart rate87 /minCommunity Memorial Hospital 07-17-2023 13:36-7197TnU5% (BldA) [Mass fraction]98 %[facility]02-22-2024 13:36-0500Systolic blood jddlazij694 mm[Hg][facility]02-02-2024 13:40-0500Body ceiwmz339.56 cmAjaimie Parra Other [facility]02-02-2024 13:40-0500 Body mass index (BMI) [Ratio]33.85 kg/j4HeysxBonita Parra Other [employer] Other 02-02-2024 13:40-0500Body .4 [degF]Bonita Parra Other [place] [employer] Other 02-02-2024 13:40-0500Body cvgynr98.45 kgBonita Parra Other [place] [employer] Other 02-02-2024 13:40-0500Body cdtigx60.44 kgCommunity [facility] Hospital02-02-2024 13:40-0500Diastolic blood qupexvao82 mm[Hg] Bonita Parra Other [facility]02-02-2024 13:40-0500 Respiratory rate18 /minBonita Parra Other [place] [employer] Other 02-02-2024 13:40-7136KhZ4% (BldA) [Mass fraction]99 % Bonita Parra Other [place] [employer] Other 02-02-2024 13:40-0500Systolic blood vbvonaqs365 mm[Hg] Bonita Parra Other [facility]07-13-2023 12:30-0400 Body txxies601.56 cmShen Esparza Other [employer] Other 07-13-2023 12:30-0400Body mass index (BMI) [Ratio]33.3 kg/u8OwnywShen Esparza Other [employer] Other 07-13-2023 12:30-0400Body kgShen Esparza Other [employer] Other 07-13-2023 12:30-0400Diastolic blood aeizjvfp25 mm[Hg] Shen Esparza Other [employer] Other 07-13-2023 12:30-0400Respiratory rate18 /minShen Esparza Other [employer] Other 07-13-2023 12:30-9096QrT5% (BldA) [Mass fraction]98 % Shen Esparza Other [employer] Other 07-13-2023 12:30-0400Systolic blood lpidzada574 mm[Hg] Shen Esparza Other [employer] Other 05-02-2023 11:30-0400Body itibnl913.56 cmAjaimie Parra Other [employer] Other 05-02-2023 11:30-0400Body mass index (BMI) [Ratio] 32.61 kg/x1JyvzpBonita Parra Other [employer] Other 05-02-2023 11:30-0400Body squhhntjyuh59.7 [degF]Bonita Parra Other [employer] Other 05-02-2023 11:30-0400Body bqiqzi31.18 kgBonita Parra Other [employer] Other 05-02-2023 11:30-0400Respiratory rate18 /minBonita Parra Other [employer] Other 05-02-2023 11:30-6489BnA5% (BldA) [Mass fraction]98 % Bonita Parra Other [employer] Other 01-12-2023 14:00-0500Body rpxuag531.56 cmShen Esparza Other [employer] Other 01-12-2023 14:00-0500Body mass index (BMI) [Ratio]33.3 kg/j6DmapgShen Esparza Other [employer] Other 01-12-2023 14:00-0500Body uqwodr63 kgShen Esparza Other [employer] Other 01-12-2023 14:00-0500Diastolic blood kkiojrvt97 mm[Hg] Shen Esparza Other [employer] Other 01-12-2023 14:00-0500Respiratory rate18 /minShen Esparza Other [employer] Other 01-12-2023 14:00-0169ClE9% (BldA) [Mass fraction]99 % Shen Esparza Other [employer] Other 01-12-2023 14:00-0500Systolic blood tsvqohzn523 mm[Hg] Shen Esparza Other [employer] Other 06-27-2022 13:30-0400Body phdvju224.56 cmShen Esparza Other [employer] Other 06-27-2022 13:30-0400Body mass index (BMI) [Ratio] 32.09 kg/t4PmdicShen Esparza Other [employer] Other 06-27-2022 13:30-0400Body addkjx56.82 kgShen Esparza Other [employer] Other 06-27-2022 13:30-0400Diastolic blood sbzkpior55 mm[Hg] Shenrolan Roymartinez Other [employer] Other 06-27-2022 13:30-0400Respiratory rate16 /minConnorrolan Esparza Other [employer] Other 06-27-2022 13:30-8519ZxG8% (BldA) [Mass fraction]99 % Shenrolan Roymartinez Other [employer] Other 06-27-2022 13:30-0400Systolic blood biavoecf082 mm[Hg] Shen Isaias Other [employer] Other 12-27-2021 13:30-0500Body nchugx600.56 cmShen Esparza Other [employer] Other 12-27-2021 13:30-0500Body mass index (BMI) [Ratio] 33.12 kg/z6Ssobp Kirillmartinez Other [employer] Other 12-27-2021 13:30-0500Body ixlmkfageqk40.2 [degF]Shen Isaias Other [employer] Other 12-27-2021 13:30-0500Body bkppii39.54 kgConnorrolan Esparza Other [employer] Other 12-27-2021 13:30-0500Diastolic blood xhmuoglt33 mm[Hg] Shen Esparza Other [employer] Other 12-27-2021 13:30-0500Respiratory rate18 /minShen Esparza Other [employer] Other 12-27-2021 13:30-8947LgB6% (BldA) [Mass fraction]99 % Shen Esparza Other [employer] Other 12-27-2021 13:30-0500Systolic blood rifdlsus386 mm[Hg] Shen Esparza Other [employer] Other Encounters Encounter DateEncounter TypeCare ProviderFacilityStart: 03-24-2025 End: 86-66-6809Zkemkk follow up visit related to original Geo TUBBS Work Phone: [facility] [place] OBGYNComment on above:Encounter for postoperative careStart: 03-24-2025 End: 48-45-8894woumedrsekUDQ RAMEYNot AvailableStart: 03-24-2025 End: 48-66-9510Dvxdck Kaleigh TUBBS Work Phone: [facility] OBGYNStart: 03-24-2025 End: 49-48-4090Sjhepi Kaleigh TUBBS Work Phone: [facility] [place] OBGYNStart: 03-11-2025 End: 56-54-5466Poaztzfxp Result EncounterCorey Deven DO Work Phone: noms External Department UnsolicitedStart: 03-11-2025 End: 65-78-4069Vvslbbpbl Result EncounterCorey Deven DO Work Phone: noms External Department UnsolicitedStart: 03-11-2025 End: 53-37-1639sqxgbxyicsOrgvs Kuns DO Work Phone: -LAB [facility] HospStart: 03-11-2025 End: 08-22-9868Bvxkxkgb ReferredCorey Deven-LAB [facility] Spec [place] HospStart: 03-02-2025 End: 66-39-6473Nbdcaqmsl Result EncounterCorey Deven DO Work Phone: noms External Department UnsolicitedStart: 03-02-2025 End: 77-19-8581Bbxnosasr Result EncounterCorey Deven DO Work Phone: noms External Department UnsolicitedStart: 02-16-2025 End: 02-82-9989Aaisxyur ReferredCorey Deven-Lab [facility] Work Phone: Start: 02-16-2025 End: 20-11-6963Qolfgbg encounter procedureCorey Deven DO Work Phone: [facility] [place] OBGYNComment on above:Pre-op examination; Menorrhagia with regular cycle; Abnormal uterine bleeding (AUB); Pelvic painStart: 02-16-2025 End: 86-81-6386Pfssncxctusns examination doneCorey Deven DO Work Phone: noms HealthcareStart: 02-16-2025 End: 33-59-4873allayaqilaBitry Kuns DO Work Phone: [facility] Work Phone: Start: 02-16-2025 End: 59-21-4542Rqlsgbxj Result EncounterCorey Deven DO Work Phone: noms External Department UnsolicitedStart: 02-16-2025 End: 12-60-2316Zbrksnxg Result EncounterCorey Deven DO Work Phone: noms External Department UnsolicitedStart: 01-27-2025 End: 90-55-2123vbpjsbkjkgRrslf Isaias DO Work Phone: [facility] Work Phone: Start: 01-27-2025 End: 21-89-7214Laypigq encounter procedureConnorrolan Kirillmartinez Romeo DO-[facility] [place] Work Phone: Start: 01-25-2025 End: 65-69-6130Giqqzha encounter procedureShen Roymartinez Romeo DO-Lab [place] Work Phone: Start: 01-25-2025 End: 83-68-4960msariznwvgScoyg Kuns DO Work Phone: [facility] Work Phone: Start: 01-17-2025 End: 35-96-5005Taatcd flowsheetCorey Deven DO Work Phone: [facility] [place] [facility]BGYNStart: 01-17-2025 End: 92-02-2281Jmebco flowsheetCorey Deven DO Work Phone: [facility] [place] [facility]BGYNStart: 01-17-2025 End: 52-52-7407Nfeexc outpatient visit 15 minutesCorey Deven DO Work Phone: [facility] [place] OBGYNComment on above:Menorrhagia with irregular cycle; Follow-up examStart: 01-17-2025 End: 88-52-6496zulpbstzizNVRYC FAZIONot AvailableStart: 01-08-2025 End: 38-82-2394nqekiixittBrovk Kuns DO Work Phone: [facility] Work Phone: Start: 01-08-2025 End: 54-22-2334Rwzuvmdf Andres Abdi DO-[facility] Start: 08-19-2024 End: 33-34-7146Yuyrdownb Result EncounterVera TUBBS Work Phone: noms External Department UnsolicitedStart: 08-19-2024 End: 65-67-2035Vwnwpujoo Result EncounterVera TUBBS Work Phone: [facility] External Department UnsolicitedStart: 07-19-2024 End: 11-38-1808nzixxnddxdNseklhfoh [facility] Work Phone: Start: 07-19-2024 End: 57-89-2931Tqekvtx encounter procedureHolley Physician GroupBronxCare Health System Work Phone: Start: 07-15-2024 End: 32-57-1300Iijtyi flowsheetVera TUBBS Work Phone: noms BCP OBStart: 07-15-2024 End: 88-46-5456Ozaqnb flowsheetVera TUBBS Work Phone: noms BCP OBStart: 07-15-2024 End: 06-10-2832Uqrjtphic Result EncounterVera TUBBS Work Phone: noms External Department UnsolicitedStart: 07-15-2024 End: 70-99-8788uewvjqgvlrZGE Tia AvailableStart: 07-15-2024 End: 44-30-3842Imajrol encounter procedureVera TUBBS Work Phone: n[facility] Work Phone: Start: 07-15-2024 End: 33-08-9326Jwlyqjsz preventive med est patient 40-64yrsAmy Zoey TUBBS Work Phone: [facility] OBComment on above:Well woman exam with routine gynecological exam; Breast cancer screening by mammogramStart: 01-15-2024 End: 75-51-5250tvgjbslujnQH Bryan Kuns Work Phone: [facility] Work Phone: Start: 01-15-2024 End: 21-16-2965Prvqbzl encounter procedureDO Shen Esparza Work Phone: [facility] Work Phone: Start: 01-14-2024 End: 14-60-6758htfjmuwcxcBA Shen Esparza Work Phone: [facility] Work Phone: Start: 01-14-2024 End: 89-94-2093Jxjvypx encounter procedureDO Shen Esparza Work Phone: [facility]-Lab [place] Work Phone: Start: 07-17-2023 End: 90-79-0981iscwelesbeOdyzociks [facility] Work Phone: Start: 07-17-2023 End: 59-84-3350Rlnnezq encounter procedureNovant Health [facility] [place] Work Phone: Start: 06-27-2023 End: 29-60-3655kkmuezhfqbOfsio Keller Other [employer] Other Start: 56-60-6174Puzjxs outpatient visit 15 minutes [facility] ClydeStart: 06-27-2023 End: 37-38-6180Rlhacsj encounter procedureHolley Physician Group-Start: 01-07-2023 End: 97-73-5363xhfequnwjbVsbtc Kuns Other [employer] Other Start: 18-31-7791Daakcesum encounterBryrolan Nunez [facility] [place]Start: 12-05-2022 End: 53-35-9545lmyeqzhkwfQxuva Kuns Other [employer] Other Start: 63-29-0567Amzzpx outpatient visit 15 minutes Shen Nunez [facility] [place]Start: 09-24-2022 End: 25-64-2197zsqwwmtbmkCraor Keller Other [employer] Other Start: 66-73-8874Gnuqha outpatient visit 15 minutes [facility] ClydeStart: 77-63-2891Vzkbbbjgc encounterBryan Kirills [facility] Urgent Care ClydeStart: 06-06-2022 End: 05-65-4688ffzcamxnzqNcags Kirills Other [employer] Other Start: 15-61-2130Qyxlvr outpatient visit 15 minutes Shen KirillTiffanieG Family Medicine [place]Start: 05-14-2022 End: 75-71-6030nixfatrsqjAcsop Kirills Other [employer] Other Start: 34-70-9433Xmkoyuwhr encounterBryrolan EsparzaFPG [facility] [place]Start: 11-19-2021 End: 43-02-8222duurnlvxiuXherj Kirills Other [employer] Other Start: 33-84-7491Llqhoy outpatient visit 25 minutes Shen RoymartinezFP[facility] [place]Start: 11-16-2021 End: 85-09-1084apfofzlkzpRrkxy Kirills Other [employer] Other Start: 30-23-8216Aywgulnip encounterConnorrolan EsparzaFP[facility] [place]Start: 10-09-2021 End: 80-24-2118jpvvajxacdEsasl Kirills Other [employer] Other Start: 30-61-7907Pccyultkr encounterBryrolan EsparzaFPG [facility] [place]Start: 08-21-2021 End: 17-95-7688pyybwsqscvTS JASON MONTANEZKFacility:I2Sxlso: 05-21-2021 End: 81-11-3667eotaccexznCdabb Kirills Other [employer] Other Start: 83-71-4858Owgnel outpatient visit 15 minutes Shen RoymartinezG [facility] [place] Procedures DateProcedureProcedure DetailPerforming ClinicianStart: 50-34-2030Tdnkacnz screenCorey Deven DO Work Phone: Start: 56-94-6915JIV TYPE AND SCREENCorey Deven DO Work Phone: Start: 24-71-3778RLQVXW RED BLOOD CELLSCorey Deven DO Work Phone: Start: 37-86-3013LGD BASIC METABOLIC PANELCorey Deven DO Work Phone: Start: 07-96-2576MQX 12-LEADCorey Deven DO Work Phone: Start: 54-11-3626JCBMNOFFIMK BIOPSYCorey Deven DO Work Phone: Start: 62-72-4223Oyrvw test visual color cmprsn methsCorey Deven DO Work Phone: Start: 78-74-2247QWBLKVDDZ REQUEST FOR LAB CORPCorey Deven DO Work Phone: Start: 61-23-4965Rwdij cultureBryan Isaias DO Work Phone: Start: 61-81-1042DA TOMOSYNTHESIS SCREENING Arlen TUBBS Work Phone: Start: 20-91-0017MVY,APTIMA HPV,AGE GDLNVera TUBBS Work Phone: Plan of Treatment DateCare ActivityDetailAuthorStart: 07-18-2025 End: 72-52-2779Kllqlec encounter wfidydyau95/23/2026 2:00 PM EST Procedure Visit [facility] [address] [place] [address] Beni Carvalho DO [address] [place] [address] [facility] OBGYNStart: 03-24-2025 End: 68-75-7255Mtsasal encounter procedureNOMS Nathalie OBGYNComment on above: ArrivedStart: 02-16-2025 End: 12-70-1771Oulhdny encounter jbondqecc68/24/2025 3:30 PM EDT Procedure Visit NOM[facility] MAN [address] [place] [address] Beni Carvalho, DO [address] [place] [address] [facility]OMMart[facility] [place] OBGYNStart: 02-16-2025 [facility] 01-17[facility]2025 End: 40-96-1345Kqhkfkl encounter baftfxemo66/25/2025 1:20 PM EDT Office Visit [facility] LEONARD [address] [place] [address] Beni Carvalho, DO [address] [place] [address] ArrivedNOMS [place] OBGYNComment on above:ArrivedStart: 50-48-0975Exakpveb identified in Urine by CultureUrine [facility]: 52-14-3111Gctlt [facility]: 07-15-2024 End: 84-52-8926GD Breast - bilateral ScreeningBilateral screening mammogram Imaging Routine Breast cancer screening by mammogram Expected: 07/15/2024 (Approximate), Expires: 09/12/2025[facility] Work Phone: comment on above:Expected: 07/15/2024 (Approximate), Expires: 09/12/2025omprehensive metabolic 1999 panel - Serum or PlasmaCommunity Memorial HospitalComprehensive metabolic 1999 panel - Serum or Plasma [facility] HospitalTHIN PREP TIS PAP AND HR HPV DNATHIN PREP TIS PAP AND HR HPV DNA Pathology and Cytology Routine Well woman exam with routine gynecological exam Ordered: 07/15/2024[facility] CenterComment on above:Ordered: 07/15/2024Tissue examTissue exam Pathology and Cytology Routine Menorrhagia with regular cycle Abnormal uterine bleeding(AUB) Pelvic pain Ordered: 02/16/2025 [facility] Work Phone: comment on above:Ordered: 02/16/2025[facility] Immunizations Immunization DateImmunizationNotesCare ProviderFacilityNEGATED: Highlighted row has not occurred!18-03-5897oegnllieu, seasonal, injectablePatient ObjectionShen Isaias Other [facility] Payers DatePayer CategoryPayerPolicy [id number]-tas [id number] BCBS MEDICAID [place] [id number] [id number] 2..[id number] 2..1.817046.3.579.2.593 [id number] 2..1.782202.3.579.2.841503-42-6020Xqwemyk [id number] 2..1.161187.3.57[id number] 2..1.058669.3.57[id number] 2..1.884757.3.579.[id number] of Defense ( and others) [facility] Fed-[id number] 2.16.840.1.239280.19 [id number] 2.16.840.1.2[id number] 2.16.840.1.519994.3.579.2.531 [id number] 2.16.840.1.120369.3.579.2.656Tpmqihm32675202 2.16.840.1.560803.3.579.2.531 Social History DateTypeDetailFacilityUnknown if ever smokedThomasville [employer] Other Sex Assigned At [facility] [employer] Other Start: 06-19-2018 End: 16-13-9899Ufflale smoking status NHISSmoker (finding)[facility]: 00-33-0658Zpk Assigned At [facility] RehabilitationTobacc smoking status NHISTobacco smoking consumption [facility] CenterStart: 87-87-3341Anz assigned at birthNot on [facility] Start: 00-53-5532MvlYiztls (finding)[facility]: 71-59-2819Xtbqfww smoking status NHISSmokes tobacco daily (finding)[facility]: 66-19-4903NwmMdmhhfLYXU Healthcare Clinical Notes 11-24-2011 to 03-24-2025 Note Date & HthjCaucVskpqgdp78-86-4015 History of Present illness Narrative* Skylar Bernstein [...] nursing note reviewed. Exam conducted with a respiratory coordinator present. Vitals: There is no height or weight on file to calculate BMI. BP: No LMP recorded. Assessment/Plan ICD-10-CM 1. Encounter for postoperative care Z48.89 Post Op Follow Up: Patient presents today for a postop follow up after having a D&C Hysteroscopy performed at [facility] with Dr. Carvalho. Pathology results was reviewed with the patient in great detail and all restrictions have been lifted. Follow Up: Patient is to return to the office for annual exam unless needed otherwise. Documented by Skylar Bernstein NP on behalf of: Skylar Bernstein, MSN, PEDIATRIC ONCOLOGY NURSE-BC documented in this encounterParkland Health [id number] History of Present illness Narrative* Pamela Marshall [...] on 03-11-[address] Carvalho at [facility]. appointment. MEDICATIONS Current Outpatient Medications Medication [...] nursing note reviewed. Exam conducted with a respiratory coordinator present. Vitals: There is no height or [...] reviewed, and patient is to proceed to [facility] OR. Follow Up: Patient is to follow up between 1-2 weeks post operative to assess proper healing and recovery fromprocedure. Documented by Mela Mcneil LPN on behalf of: Beni Carvalho DO documented in this encounterParkland Health [id number] Evaluation note* Author Jaki Calles [facility] HospitalAuthoredSeptember 2024 1:11pmSooner if needed, the ER if concerns,The above note written by Jaki Calles LPN acting as human recorder, note dictated by Dr. Shen Esparza [facility] Work Phone: 1(450) 136-805108-25-2025 History of Present illness Narrative* Skylar Bernstein [...] nursing note reviewed. Exam conducted with a respiratory coordinator present. Vitals: There is no height or [...] of: Beni Carvalho DO documented in this encounterParkland Health [id number] History of Present illness Narrative* SULY Laboy - 07/15/2024 10:00 AM EST Reason for Appointment: Patient ID: Ann Marie Posadas is a 44 y.o. female who presents for [facility] Visit Patient presents today for [...] nursing note reviewed. Exam conducted with a respiratory coordinator present. Vitals: There is no height or [...] behalf of: SULY Laboy documented in this encounterParkland Health [id number] Evaluation note* Encounter Date Diagnosis Assessment Notes [...] understanding and is agreeable to treatment plan [employer] Other 08-15-2023 Evaluation note* Encounter Date Diagnosis Assessment Notes Treatment Notes Treatment Clinical Notes Dec, Anxiety (ICD-10 - F41.9) [employer] Other 07-13-2023 Evaluation note* Encounter Date Diagnosis Assessment Notes Treatment Notes Treatment Clinical Notes Nov, Encounter for screen ing mammogram for malignant neoplasm of breast (ICD-10 - Z12.31) Baseline mammogram has been ordered for her today. She is looking for new [employer] for her care. I have encourgaged [...] Educated on appropriate usage of rescue inhaler [employer] Other 05-02-2023 Evaluation note* Encounter Date Diagnosis [...] understanding and is agreeable to treatment plan. [employer] Other 01-12-2023 Evaluation note* Encounter Date Diagnosis [...] now. She is to continue as directed. [employer] Other 12-20-2022 Evaluation note* Encounter Date Diagnosis Assessment Notes Treatment Notes Treatment Clinical Notes Apr, Anxiety (ICD-10 - F41.9) [employer] Other 06-27-2022 Evaluation note* Encounter Date Diagnosis [...] on hand, she does not take often. [employer] Other 06-24-2022 Evaluation note* Encounter Date Diagnosis Assessment Notes Treatment Notes Treatment Clinical Notes Oct, Hypertension (ICD-10 - I10) [employer] Other 05-17-2022 Evaluation note* Encounter Date Diagnosis Assessment Notes Treatment Notes Treatment Clinical Notes September, Anxiety (ICD-10 - F41.9) [employer] Other 12-27-2021 Evaluation note* Encounter Date Diagnosis Assessment Notes Treatment Notes Treatment Clinical Notes Apr, Hypertension (ICD-10 - I10) Blood pressure is satisfactory, encouraged her to continue with medications as prescribed. Encouraged her to have her pressure take when she can, call with any concerns. Will see her back in 6 months. [employer] Other 07-01-2012 History general Narrative - Reported* Type Description Date Medical History hypertension Surgical HistoryD & C miscarriage/ Dr. [id number] HistoryD & C molar / Dr. Jasso/2011Surgical HistoryTubal Ligation - Dr. Padilla/2018 [employer] Other 07-01-2012 History general Narrative - Reported* Type Description Date Medical History hypertension Medical HistoryanxietySurgical HistoryD & C miscarriage/ Dr. CardozaHonfvqz8149Zedtucfl HistoryD & C molar / Dr. Jasso/2011Surgical HistoryTubal Ligation - Dr. Fuentes/2018Hospitalization Historychild [employer] Other Evaluation noteNo InformationNort [employer] Other evaluation note* Diagnosis Onset Date Resolution Status Anxiety and depression acuteHyperlipidemiaacuteHypertensionacuteLymphadenopathy of right cervical regionacute [facility] Work Phone: Evaluation noteNo assessment information available [facility] Work Phone: Evaluation note* Author Mrala Santacruz [facility] HospitalBetzyhoredMarco Antonio 2023 1:20pmThe above note written by ANDRES Deleon acting as human recorder, note dictated by Dr. Shen Esparza. [facility] Work Phone: Evaluation note* Diagnosis Well woman exam with routine gynecological exam Routine gynecological examination Breast cancer screening by mammogram documented in this encounter [facility]* Diagnosis Onset Date Resolution Status Admit Date Anxiety and depression acuteFebruary 2024 12:21pmHypertensionacuteFebruary 2024 12:21pm [facility] Work Phone: Evaluation note* Diagnosis Menorrhagia with irregular cycle Follow-up exam Unspecified follow-up examination documented in this encounter [facility] HealthcareEvaluation note* Author Jaki Calles [facility] HospitalAuthoredSeptember 2024 1:11pmSooner if needed, the ER if concerns,The above note written by Jaki Calles LPN acting as human recorder, note dictated by Dr. Shen Esparza [facility] Work Phone: Evaluation note* Diagnosis Pre-op examination Menorrhagia with regular cycle Abnormal uterine bleeding (AUB) Pelvic pain documented in this encounter [facility] HealthcareEvaluation note* Diagnosis Encounter for postoperative care documented in this encounter [facility] HealthcareReason for referral (narrative)No reason for referral information availableZanesville City Hospital Work Phone: Summary Purpose Family History [...] and Reason for Visit Chief Complaint Poss [facility], Expos ure To [facility] 6 MONTH FOLLOW UPReason for VisitAnxiety [...] and content) DATE CREATED AUTHOR 09/04/2021 [facility] DATE CREATED AUTHOR AUTHOR'S ORGANIZ ATION 03/20/2025 [facility] DATE CREATED AUTHOR AUTHOR'S ORGANIZ ATION 03/26/2025 [facility] EPIC REASON FOR VISIT (unrecogniz ed section and content) ReasonCommentsWell Women VisitReasonCommentsER Oufuht-elQqgdueFqfjlfzfKbb-gc VisitEMBXReasonCommentsPost-op Visit Care Teams (unrecognized sec tion [...] DateEnd Date Shen Esparza MD [address] [facility], [address] PCP - General07/15/24Team MemberRelationshipSpecialtyStart DateEnd Date Shen Esparza MD [facility] [address] PCP - General07/15/24 Team Status: Inactive Member Role Status Dates Shen Esparza DO Primary Care Provide r, Attending Provider Active Start: July 19, 2024 End: July 19, 2024Team MemberRelationshipSpecialtyStart DateEnd Date Shen Esparza MD [facility] [address] [facility], [facility] PCP - General07/15/24 Team Status: Inactive Member Role Status Dates Shen Esparza DO Primary Care Provider Active Sta rt: January 08, 2025 End: January 08, 2025Lucio Goldstein DOAttjalen ProviderActiveStart: January 08, 2025 End: January 08, 2025Team MemberRelationshipSpecialtyStart DateEnd Date Shen Esparza DO PCP - General07/15/24Team MemberRelationshipSpecialtyStart DateEnd Date Shen Esparza DO [facility]07/15/24 Team Status: Inactive Member Role Status [...] DateEnd Date Shen Esparza DO [facility]07/15/24 Team Status: Inactive Member Role Status [...] BE BASED ON THE PRIMARY CLINICAL RECORDS. [facility] [employer] [facility]. provides no warranty or guarantee of the accuracy or completeness of information in this document.
[2025-05-02 11:52] LABS: INR 1.02; Partial Thromboplastin Time 26.2 sec (22.3-36.2); Prothrombin Time 10.7 sec (9.0-11.6)
[2025-05-02 11:55] LABS: Alanine Aminotransferase 19 U/L (14-59); Albumin Globulin Ratio 0.9; Albumin Level 3.3 g/dL (3.4-5.0); Alkaline Phosphatase 104 U/L (46-116); Anion Gap 16.4; Aspartate Amino Transferase 21 U/L (15-37); Blood Urea Nitrogen 6.0 mg/dL (7.0-18.0); Calcium 8.5 mg/dL (8.5-10.1); Carbon Dioxide 24.6 mmol/L (21.0-32.0); Chloride 105 mmol/L (98-107); Estimated GFR (African America >60 (>=60 mL/min/1.73m^2); Estimated GFR (Non-African Ame >60 (>=60 mL/min/1.73m^2); Globulin 3.6 g/dL; Glucose 99 mg/dL (74-106); Potassium 4.0 mmol/L (3.5-5.1); Sodium 142 mmol/L (136-145); Total Protein 6.9 g/dL (6.4-8.2)
[2025-05-02 12:04] LABS: Thyroid Stimulating Hormone 1.316 uIU/mL (0.358-3.740)
== END 2025-05-02 11:19 | disposition home or self-care (01) ==
PROVIDERS: PCP Family Medicine; Visit Provider Obstetrics & Gynecology
DX: Z01.812 Encounter for preprocedural laboratory examination (principal); R10.20 Pelvic and perineal pain unspecified side; N94.10 Unspecified dyspareunia; N94.6 Dysmenorrhea, unspecified; N92.1 Excessive and frequent menstruation with irregular cycle; D50.0 Iron deficiency anemia secondary to blood loss (chronic)
CPT/HCPCS: 36415; 80048; 80076; 84443; 85025; 85610; 85730; 86850; 86900; 86901

== ENCOUNTER 2025-05-03 09:00 | Day surgery (SDC) | payer MEDICAID, SELFPAY ==
[2025-05-03] VITALS (8 sets, daily range): BP systolic 127–145; BP diastolic 73–91; PULSE 74–103; TEMP 36.4–36.6; O2SAT 94–98; BMI 32.6
[2025-05-03 09:14] LABS: Hematocrit 35.2 % (36.0-48.0); Hemoglobin 11.2 g/dL (12.0-16.0); Immature Granulocytes Abs Auto 0.01 10^3/uL (0.00-0.03); Immature Granulocytes Pct Auto 0.2 % (0.0-0.5); Lymphocytes Absolute Auto 2.0 10^3/uL (1.2-3.8); Mean Corpuscular HGB Conc 31.8 g/dL (29.9-35.2); Mean Corpuscular Hemoglobin 23.6 pg (26.7-34.0); Mean Corpuscular Volume 74.3 fL (81.0-99.0); Platelet Count 277 10^3/uL (150-450); Red Blood Count 4.74 10^6/uL (4.20-5.40); White Blood Count 6.1 10^3/uL (4.0-11.0)
[2025-05-03] MEDS: CEFAZOLIN SODIUM 2 GM/50 ML D5W PREMIX IV (11:23)
--- NOTE | 2025-05-03 12:17 | XR_ITS ---
[facility] [place] [id number] Patient Name: ANN MARIE RODRIGUEZ MRN: [id number] date: 1980 Sex: F Assigned Patient Location: [facility] Current Patient Location: [facility] Accession/Order Number: [id number] Exam Date: 05/03/2025 12:24 Report Date: 05/03/2025 12:43 At the request of: ANNE LOMBARDI II, MD Procedure: XR chest 1V XR chest 1V 05/03/2025 12:28 PM SIGNS AND SYMPTOMS: ^poor ventilation ^Y PROTOCOL: Frontal radiograph of the chest COMPARISON: None FINDINGS: The trachea is midline. The heart and mediastinal structures are within normal limits. Interstitial prominence is noted with airspace opacity near the left heart border. The bony thorax is intact. XR/XR chest 1V IMPRESSION: Interstitial prominence is noted with airspace opacity near the left heart border. This may represent a developing pneumonia. Impression dictated by: Jarrett Reynoso M.D. 05/03/2025 12:43 PM Dictation Location: [employer] Electronically authenticated by: [id number] Y Date: 05/03/2025 12:43
== END 2025-05-03 13:21 | disposition home or self-care (01) ==
PROVIDERS: PCP Family Medicine; Visit Provider Obstetrics & Gynecology
PROC: (CPT 840; principal; 2025-05-03 10:05)
DX: N92.0 Excessive and frequent menstruation with regular cycle (principal); R10.20 Pelvic and perineal pain unspecified side; N94.10 Unspecified dyspareunia; N94.6 Dysmenorrhea, unspecified; R05.9 Cough, unspecified; Z98.51 Tubal ligation status; F17.210 Nicotine dependence, cigarettes, uncomplicated; I10 Essential (primary) hypertension; K21.9 Gastro-esophageal reflux disease without esophagitis; F41.9 Anxiety disorder, unspecified
CPT/HCPCS: 58571; 36415; 71045; 84702; 85025; J0690; J1100; J2250; J2405; J2704; J3010

== ENCOUNTER 2025-05-12 15:26 | Outpatient (OUT) | payer MEDICAID, SELFPAY ==
--- OUTSIDE RECORDS SUMMARY | 2025-05-10 11:05 | XMS_ITS | Continuity of Care Document ---
Author Organization [facility] Address [address] [place] [address] Phone Care Team Providers Care Resume Specialist Name Role Phone Beni Carvalho DO Attending Provider Shen Esparza DO Primary Care Provider Shen Esparza DO Attending Provider Mary Patterson PA-C Attending [...] April 12, 2025 End: April 12warner Esparza DOAttjalen ProviderActiveStart: April 12, 2025 End: April 12, 2025 Visit Care Team Team Status: Inactive Member Role/Relationship Status Dates Shen Esparza DO Primary Care Provider Active Sta rt: April 13, 2025 End: April 13ryan Kuns , DOAttending ProviderActiveStart: April 13, 2025 End: April 13, 2025 Visit Care Team Team Status: Active Member Role/Relationship Status Dates Shen Esparza DO Primary Care Provider Active Sta rt: April 14, 2025 SULY Steve-Roxy ProviderActiveStart: April 14, 2025 Visit Care Team [...] April 20, 2025 End: April 20warner Esparza DOAttending ProviderActiveStart: April 20, 2025 End: April 20, 2025 Visit Care Team Team Status: Inactive Member Role/Relationship Status Dates Shen Esparza DO Primary Care Provider Active Sta rt: April 25, 2025 End: April 25warner Esparza DOAttending ProviderActiveStart: April 25, 2025 End: April 25, 2025 Visit Care Team Team Status: Active Member Role/Relationship Status Dates Shen Esparza DO Primary Care Provider Active Sta rt: May 02, 2025 Beni Carvalho DOAttending ProviderActiveStart: May 02, 2025 Visit Care Team Team Status: Active Member Role/Relationship Status Dates Shen Esparza DO Primary Care Provider Active Sta rt: May 03, 2025 Beni Carvalho DOAttending ProviderActiveStart: May 03, 2025 Visit Care Team Team Status: Inactive Member Role/Relationship Status Dates Shen Esparza DO Primary Care Provider Active Sta rt: May 10, 2025 End: May 10warner Esparza DOAttending ProviderActiveStart: May 10, 2025 End: May 10, 2025 Chief Complaint and Reason for Visit Chief Complaint Admit Date menorrhagia February 16, 2025 3:33pm Unknown March 11, 2025 1 0:24am back pain about 2 weeks April 12, 2 025 2:39pm N92.0 D64.9 April 13, 2025 6:54am D50.9 - April 18, 2025 1:15pm D50.9 N92.0 April 20, 2025 12:57pm N92.1 D50.0 April 25, 2025 6 :46am f/u pneumonia May 10, 2025 12:50pm Reason for Visit Admit Date Heavy menstrual period April 12 2:39pm Lumbar back pain April 12, 2025 2:39pm Iron deficiency anemia May 10 12:50pm Pneumonia May 10, 2025 12:50pm Reason for Referral Type Reason(s) Provider Provider Contact Information Ousmane devine Address Start Date Pneumonia J18.9 - Pneumonia, unspecified lwxrkrvdV11.9 - Pneumonia, unspecified organism Mel Renee Phone: [phone] [facility] [place] [address]Rtzakdyl 2024 Allergies, Adverse Reactions, Alerts Allergen Type Severity Reaction Last Updated Verified Status No Known Allergies Allergy Unknown May 10, 2025 12:57pmYesActive Social History Smoking Status Status Start Date End Date Date of Observa tion Smokes tobacco daily (finding) April 12, 2025 3:25pm Observation Status Observation Response Date of Response Legal Sex Female (finding) Sex Assigned At BirthFemaleSept1979 Family History Relationship Condition Age at Onset Recorded Date/T mirella father Alcoholism Unknown Malignant neoplasmUnknownFamily history of malignant neoplasm of prostateUnknown Family history of mental disorderUnknowngrandparentDeceasedUnknownmother HypertensionUnknownsisterHypertensionUnknown Problems Active Problems Problem Diagnosis/Recorded Date [...] July 16, 2023 4:41pm Unknown A ctive Pneumonia May 10, 2025 1:45pm Unknown A ctive Vitamin D deficiency January [...] day; Note: Source Status: Taking; Provider: Isaias Bradshaw with drug therapy Citalopram 20 mg hzpqwcXeqxetruxtfp83YDSTSfhgk239Vbfdhfdn 11th, 2024 2:50pm January 27, 2025 12:22pmHypertension Essential (primary) hypertensionFreeTextSi tablet Orally Once a day; Note: Source Status: Taking; Refills: 1; Qty: 90 Tablet; Provider: Isaias Romeo Hydrochlorothiazide 12.5 mg vclvwvIylbrnypubgi81.5MGPOEvery 48 izoun095Dsdlpfkr2023 2:50pmFebruary 2024 12:53pmFreeTextSi tablet Orally every other day; Note: Source Status: Not-Taking\PRN; Provider: Isaias Gotti PIrbesartan 150 mg gugeywPqzsqr827BOAWErguq929Ohmlqlvm 11th, 2024 2:51pmHypertension Essential (primary) hypertensionFreeTextSi tablet Orally Once a day; Note: Source Status: Taking; Provider: Isaias Bradshaw with drug therapyAcyclovir 800 mg zritdgFygzrceatxaf473BCWZJspnd daily as needed for cold dsuhe762Yrxlazj2024 12:33pmJune 24, 2024 9:05amFreeTextSi tablet Orally prn Twice a day; Note: Source Status: Not-Taking\PRNprn; Refills: 5; Provider: Isaias Gotti PAcyclovir 800 mg yapxodBroxjx794RQOU.COMPLEX as needed for cold hpwwu151 June 24, 2024 9:77kp435 mg orally 2 tabs twice a day PRN;Complies with drug therapyAcyclovir 800 mg tabletDiscontinuedMGPOFebruary 2023 12:00am July 17, 2023 1:46pmFreeTextSi tablet Orally prn Twice a day; Note: Source Status: Not-Taking\PRNprn; Refills: 5; Provider: Isaias Gotti PIrbesartan 150 mg yxorvuTbfhhilsgzlg3UCKANDmobeOtsumrxx 2023 12:00amFebruary 2023 1:46pmFreeTextSi tablet Orally Once a day; Note: Source Status: Taking; Provider: Isaias Gotti PHydrochlorothiazide 12.5 mg bpgmqaTnegohdfzggx2NYHVMIspdo 48 hoursFebruary 2023 12:00ambruary 2023 1:46pmFreeTextSi tablet Orally every other day; Note: Source Status: Not-Taking\PRN; Provider: Isaias Gotti PAlbuterol Sulfate (Proair Hfa) 90 mcg/actuation HFA aerosol inhaler Ljwayksikogn5RLGBUBCVFKFKNZFbkdf 6 hoursuary 2023 12:00ambruary 2023 2:18pmFreeTextSi puffs as needed Inhalation every 6 hrs; Note: Source Status: Not-Taking\PRN; Provider: Isaias Gotti PAmlodipine 10 mg tablet Uvpvhrqksjsa0SVUJJNqbuuVeckvofe 2023 12:00amFebruary 2023 1:46pm FreeTextSi tablet Orally Once a day; Note: Source Status: Taking; Provider: Isaias Gotti PCitalopram 20 mg kameslElsnqlpjufxo0UREBDUoamyMnmnfpyg 2023 12:00amFebruary 2023 1:46pmFreeTextSi tablet Orally Once a day; Note: Source Status: Taking; Refills: 1; Qty: 90 Tablet; Provider: Isaias Romeo Acyclovir 800 mg eyzvfkNdqgukmfkjim600RVURYuzcwkzk 2023 1:45pmJanuary 2024 12:33pmFreeTextSi tablet Orally prn Twice a day; Note: Source Status: Not-Taking\PRNprn; Refills: 5; Provider: Isaias Gotti PAmlodipine 10 mg fctqupTltzfgqrjkxm12YNLNDquajProyhjxh 2023 1:46pmFebruary 2023 2:18pmFreeTextSi tablet Orally Once a day; Note: Source Status: Taking; Provider: Isaias Gotti PCitalopram 20 mg sbxmtpRiqppknzznol48REAYQaumqLvgyqzfu 2023 1:46pmFebruary 2023 2:18pmFreeTextSi tablet Orally Once a day; Note: Source Status: Taking; Refills: 1; Qty: 90 Tablet; Provider: Isaias Gotti PHydrochlorothiazide 12.5 mg dhvtuoCazylvrhkilk92.5MGPOEvery 48 hours July 17, 2023 1:46pmAugust 2023 12:33pmFreeTextSi tablet Orally every other day; Note: Source Status: Not-Taking\PRN; Provider: Isaias Romeo Irbesartan 150 mg cdhrmdIykijvdjfmrv962XJVDOysxsRiivhixj 2023 1:46pm July 17, 2023 2:18pmFreeTextSi tablet Orally Once a day; Note: Source Status: Taking; Provider: Isaias Gotti PLorazepam (Ativan) 0.5 mg tablet Discontinued0.5MGPODaily as needed for anxiety/ panic gteqpwn70382Geociasp 2023 12:00amFebruary 2023 2:24pmAnxiety and depression Anxiety disorder, unspecified Depression, unspecifiedCephalexin 500 mg xtztapaGojnteewipgm733QXDAJqglo times tdclb50364Wxpnuhtr 2023 12:00amAugust 2023 12:04pmLymphadenopathy of right cervical region Localized enlarged lymph nodesAmlodipine 10 mg srogtuOxcxilkmksqs47UTTQXfjkp537 July 17, 2023 2:14pmNovember 2023 2:51pmHypertension Essential (primary) hypertensionFreeTextSi tablet Orally Once a day; Note: Source Status: Taking; Provider: Isaias Gotti PIrbesartan 150 mg tablet Svzdgdpfdyio100RPUFJtrzb072Rmtaspok 2023 2:15pmNov2023 2:51pm Hypertension Essential (primary) hypertensionFreeTextSi tablet Orally Once a day; Note: Source Status: Taking; Provider: Isaias Gotti PCitalopram 20 mg tabletDiscontinued 89VJIVQqefi091Iekuyged 2023 2:15pmNov2023 2:51pmHypertension Essential (primary) hypertensionFreeTextSi tablet Orally Once a day; Note: Source Status: Taking; Refills: 1; Qty: 90 Tablet; Provider: Isaias Romeo Albuterol Sulfate (Proair Hfa) 90 mcg/actuation HFA aerosol dqluqgkKrswsw7AKGO INHALATIONEvery 6 hours6.72February 2023 2:16pmAsthma Unspecified asthma, uncomplicatedFreeTextSi puffs as needed Inhalation every 6 hrs; Note: Source Status: Not-Taking\PRN; Provider: Isaias Gotti PComplies with drug therapyLorazepam (Ativan) 0.5 mg tabletActive0.5MGPODaily as needed for anxiety/ panic wmgefst36706Ltfzmsfp 2023 2:24pmAnxiety and depression Anxiety disorder, unspecified Depression, unspecifiedComplies with drug therapyHydrochlorothiazide 12.5 mg qhrytqDifwezwjfrfb04.5MGPOEvery 48 cnbhy224Ocrxtn 2023 12:33pmNovember 2023 2:51pmFreeTextSi tablet Orally every other day; Note: Source Status: Not-Taking\PRN; Provider: Isaias Gotti PHydrochlorothiazide 12.5 mg tablet Sqwwny06.5MGPOdaily as neededFebruary 2024 12:53pmComplies with drug therapyCitalopram 20 mg jqztdjXbiiqw86LOSBMmvjz213Hcefwzfdj 4th, 2025 12:06pm Hypertension Essential (primary) hypertensionComplies with drug therapyTizanidine (Zanaflex) 4 mg posxicsQdladv3VPVXWijjg at bedtime as needed for muscle uapwjiowog820 April 12, 2025 12:00amComplies with drug therapyAmoxicillin-Pot Clavulanate 875-125 mg sgnqgjLhmwtx6JZQOTYfxwpzac 2024 12:00amComplies with drug therapyMegestrol 20 mg lmvmshCizpos60LPPNWvaaiGrpfkybz 16th, 2025 12:00am Complies with drug therapy Immunizations Immunization Event Date Not Given Reason Dose Number 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 Leader Lot Number Reason(s) Given Vaccine Information Statement [...] 14, 2025 1:39pmApril 14, 2025 1:39pm NEGATIVENEGATIVEAnion 2024 1:39pmApril 14, 2025 1:39pm 13.6Basophils # (Auto)April 14, 2025 1:39pmApril 14, 2025 1:39pm0.1 10 3/uL0.0-0.1Thyroid Stimulating Hormone 3rd GenMay 02, 2025 11:26amDe2024 11:26am1.316 u[iU]/mL0.358-3.740Anion GapMay 02, 2025 11:26am 16.4Albumin/Globulin RatioMay 02, 2025 11:26am0.9Activated Partial Thromboplast TimeD2024 11:26amDe2024 11:26am26.2 sec 22.3-36.2Prothromb Time International RatioMay 02, 2025 11:26amDe2024 11:26am1.02DESIRED INR:2.0-3.0 CONDITIONS NOT LISTED BELOW2.5-3.5 FOR PROSTHETIC HEART VALVE REPLACEMENT2.5-3.5 RECURRENT THROMBOSISBasophils # (Auto) May 02, 2025 11:26amMay 02, 2025 11:26am0.0 10 3/uL0.0-0.1Human Chorionic Gonadotropin, QuantDece2024 9:08amDece2024 9:08am <1 mIU/mL5-50 0.2-1 JYWT09-835 1-2 BBZXS679-2,000 2-3 WJOTO412-97,000 3-4 WEEKS1,000-50,000 4-5 WEEKS10,000-100,000 5-6 WEEKS15,000-200,000 6-8 WEEKS10,000-100,000 2-3 MONTHSBasophils # (Auto)May 03, 2025 9:08am May 03, 2025 9:08am0.1 10 3/uL0.0-0.1Iron LevelApril 14, 2025 1:39pm April 14, 2025 1:39pm12.0 ug/dLBelow low xajoco77.0-170.0BUN/Creatinine RatioNove2024 1:39pmApril 14, 2025 1:39pm19.2Basophils (%) (Auto)April 14, 2025 1:39pmApril 14, 2025 1:39pm0.6 %0.2-2.0 BUN/Creatinine RatioMay 02, 2025 11:26am9.7AlbuminDe2024 11:26am3.3 g/dLBelow low normal3.4-5.0Prothrombin TimeDece2024 11:26am May 02, 2025 11:26am10.7 sec9.0-11.6Basophils (%) (Auto)May 02, 2025 11:26amDece2024 11:26am0.6 %0.2-2.0Basophils (%) (Auto)May 03, 2025 9:08amDe2024 9:08am0.8 %0.2-2.0Total Iron Binding Capacity April 14, 2025 1:39pmApril 14, 2025 1:64zx869.0 ug/dLAbove high normal 250.0-450.0Blood Urea NitrogenApril 14, 2025 1:39pmApril 145 1:39pm10.0 mg/dL7.0-18.0Eosinophils # (Auto)April 14, 2025 1:39pmNov2024 1:39pm0.1 10 3/uL0.0-0.7Blood Urea NitrogenDece2024 11:26am 6.0 mg/dLBelow low normal7.0-18.0Alkaline PhosphataseDe2024 11:26am 104 U/M74-060Rohetvkvquu # (Auto)May 02, 2025 11:26amDecember 2024 11:26am0.1 10 3/uL0.0-0.7Eosinophils # (Auto)May 03, 2025 9:08amDecember 2024 9:08am0.1 10 3/uL0.0-0.7Calcium LevelApril 14, 2025 1:39pm April 14, 2025 1:39pm8.6 mg/dL8.5-10.1Eosinophils (%) (Auto)April 14, 2025 1:39pmNov2024 1:39pm1.1 %0.9-7.0Calcium LevelMay 02, 2025 11:26am8.5 mg/dL8.5-10.1Alanine Aminotransferase (ALT/SGPT)May 02, 2025 11:26am19 U/V56-98Vxragldxndl (%) (Auto)May 02, 2025 11:26amDecemb2024 11:26am1.5 %0.9-7.0Eosinophils (%) (Auto)May 03, 2025 9:08amDecember 2024 9:08am2.3 %0.9-7.0Chloride LevelApril 14, 2025 1:39pmNov2024 1:47re413 mmol/R34-641QdhdxdjalqGiltpjae 20th, 2025 1:39pmNov2024 1:39pm22.3 %Below lower panic .0-48.0RESULTS CALLED TO Mary Patterson,PAChloride LevelDece2024 11:73xy387 mmol/L98-107 Aspartate Amino Transf (AST/SGOT)May 02, 2025 11:26am21 U/C08-65Bnrfxpxyaa May 02, 2025 11:26amDecemb2024 11:26am27.3 %Below low normal 36.0-48.0Hematocritmymichigan medical center gladwin2024 9:08amDece2024 9:08am35.2 %Below low cgvvwi84.0-48.0Carbon Dioxide LevelApril 14, 2025 1:39pmNov2024 1:39pm24.8 mmol/L21.0-32.0HemoglobinApril 14, 2025 1:39pmApril 14, 2025 1:39pm6.9 g/dLBelow lower panic .0-16.0RESULTS CALLED TO Mary Patterson,PACarbon Dioxide Level2024 11:26am24.6 mmol/L 21.0-32.0Direct BilirubinDece2024 11:26am0.1 mg/dL0.0-0.2Hemoglobin May 02, 2025 11:26amDece2024 11:26am8.3 g/dLBelow low normal 12.0-16.0Hemoglobinmymichigan medical center gladwin2024 9:08amDece2024 9:08am11.2 g/dL Below low .0-16.0CreatinineApril 14, 2025 1:39pmNov2024 1:39pm0.52 mg/dLBelow low normal0.55-1.02Immature Granulocyte # (Auto)April 14, 2025 1:39pmNov2024 1:39pm0.03 10 3/uL0.00-0.03Creatinine May 02, 2025 11:26am0.62 mg/dL0.55-1.02GlobulinDece2024 11:26am 3.6 g/dLImmature Granulocyte # (Auto)May 02, 2025 11:26amDecember 2024 11:26am0.03 10 3/uL0.00-0.03Immature Granulocyte # (Auto)May 03, 2025 9:08amDecember 2024 9:08am0.01 10 3/uL0.00-0.03Estimated GFR ()April 14, 2025 1:39pmNov2024 1:39pm>60>=60 mL/min/1.73m 2Immature Granulocyte % (Auto)April 14, 2025 1:39pmNov2024 1:39pm0.4 %0.0-0.5Estimated GFR ()May 02, 2025 11:26am>60>=60 mL/min/1.73m 2Total BilirubinDeceer 2024 11:26am0.3 mg/dL 0.2-1.0Immature Granulocyte % (Auto)May 02, 2025 11:26amDecember 2024 11:26am0.4 %0.0-0.5Immature Granulocyte % (Auto)May 03, 2025 9:08am May 03, 2025 9:08am0.2 %0.0-0.5Estimated GFR (Non- AmericanNov2024 1:39pmNov2024 1:39pm>60>=60 mL/min/1.73m 2Lymphocytes # (Auto)April 14, 2025 1:39pmNov2024 1:39pm2.4 10 3/uL1.2-3.8 Estimated GFR (Non- AmericanDe2024 11:26am>60>=60 mL/min/1.73m 2Total ProteinDeceer 2024 11:26am6.9 g/dL6.4-8.2Lymphocytes # (Auto)May 02, 2025 11:26amDecember 2024 11:26am2.1 10 3/uL1.2-3.8 Lymphocytes # (Auto)May 03, 2025 9:08amDecember 2024 9:08am2.0 10 3/uL1.2-3.8Glucose LevelC[facility]20[facility] 1:39pmApril 14, 2025 1:39pm93 mg/yX60-209Fkodxeirniy (%) (Auto)April 14, 2025 1:39pmApril 14, 2025 1:39pm29.8 %20.5-60.0Glucose LevelDemymichigan medical center [facility]win2024 11:26am99 mg/oV77-261 Lymphocytes (%) (Auto)May 02, 2025 11:26amDece2024 11:26am30.7 % 20.5-60.0Lymphocytes (%) (Auto)May 03, 2025 9:08amDece2024 9:08am32.8 %20.5-60.0Potassium LevelC[facility]2024 1:39pmApril 14, 2025 1:39pm3.4 mmol/LBelow low normal3.5-5.1Mean Corpuscular HemoglobinCone Health [facility]2024 1:39pmApril 14, 2025 1:39pm23.3 pgBelow low sspazo33.7-34.0 Potassium LevelDelittle [facility] 2024 11:26am4.0 mmol/L3.5-5.1Mean Corpuscular HemoglobinDemymichigan medical center gladwin2024 11:26amDece2024 11:26am22.2 pgBelow low omgbkx48.7-34.0Mean Corpuscular HemoglobinDemymichigan medical center gladwin2024 9:08amDececity of hope, [place] 2024 9:08am23.6 pgBelow low unkmfh92.7-34.0Sodium LevelL[facility] 2024 1:39pmApril 14, 2025 1:73tm965 mmol/N447-549Muqh Corpuscular Hemoglobin ConcentCone Health [facility]2024 1:39pmApril 14, 2025 1:39pm30.9 g/dL29.9-35.2 Sodium LevelDemymichigan medical center [facility]win2024 11:86th804 mmol/I885-269Wepe Corpuscular Hemoglobin ConcentDece2024 11:26amDecember 2024 11:26am30.4 g/dL 29.9-35.2Mean Corpuscular Hemoglobin ConcentMay 03, 2025 9:08amDecember 2024 9:08am31.8 g/dL29.9-35.2Mean Corpuscular VolumeNov2024 1:39pmNovember 2024 1:39pm75.3 fLBelow low .0-99.0Mean Corpuscular VolumeDece2024 11:26amDecember 2024 11:26am73.0 fLBelow low aogjua31.0-99.0Mean Corpuscular VolumeDece2024 9:08amDecember 2024 9:08am74.3 fLBelow low tlkwiw20.0-99.0Monocytes # (Auto)April 14, 2025 1:39pmNov2024 1:39pm0.4 10 3/uL0.3-0.8Monocytes # (Auto)May 02, 2025 11:26amDecember 2024 11:26am0.5 10 3/uL0.3-0.8Monocytes # (Auto) May 03, 2025 9:08amDecember 2024 9:08am0.4 10 3/uL0.3-0.8Monocytes (%) (Auto)April 14, 2025 1:39pmNov2024 1:39pm4.3 %1.7-12.0 Monocytes (%) (Auto)May 02, 2025 11:26amDecember 2024 11:26am6.9 % 1.7-12.0Monocytes (%) (Auto)May 03, 2025 9:08amDecember 2024 9:08am 6.3 %1.7-12.0Mean Platelet VolumeNov2024 1:39pmNovember 2024 1:39pm8.7 fLBelow low normal9.5-13.5Mean Platelet VolumeDecemb 2025 11:26amDecember 2024 11:26am8.2 fLBelow low normal9.5-13.5Mean Platelet VolumeDece2024 9:08amDecember 2024 9:08am8.2 fLBelow low normal 9.5-13.5Neutrophils # (Auto)April 14, 2025 1:39pmApril 14, 2025 1:39pm 5.2 10 3/uL1.4-6.5Neutrophils # (Auto)May 02, 2025 11:26amDecemb2024 11:26am4.0 10 3/uL1.4-6.5Neutrophils # (Auto)May 03, 2025 9:08am May 03, 2025 9:08am3.5 10 3/uL1.4-6.5Neutrophils (%) (Auto)April 14, 2025 1:39pmApril 14, 2025 1:39pm63.8 %43.0-75.0Neutrophils (%) (Auto) May 02, 2025 11:26amDece2024 11:26am59.9 %43.0-75.0Neutrophils (%) (Auto)May 03, 2025 9:08amDecember 2024 9:08am57.6 %43.0-75.0 Platelet CountNov2024 1:39pmApril 14, 2025 1:87kt343 10 3/uL 150-450Platelet CountDece2024 11:26amDecember 2024 11:66yv821 10 3/tD081-627Giqajsyk CountDece2024 9:08amDecember 2024 9:17tk038 10 3/nH056-638Kle Blood CountApril 14, 2025 1:39pmNov2024 1:39pm2.96 10 6/uLBelow low normal4.20-5.40Red Blood Countce2024 11:26amDecemb2024 11:26am3.74 10 6/uLBelow low normal4.20-5.40Red Blood CountDecember 2024 9:08amDecember 2024 9:08am4.74 10 6/uL4.20-5.40Red Cell Distribution WidthNovember 2024 1:39pmNovember 2024 1:39pm14.8 %11.0-15.0Red Cell Distribution WidthDecember 2024 11:26amDecember 2024 11:26am15.9 %Above high rtkjyr88.0-15.0Red Cell Distribution WidthDecember 2024 9:08amDecember 2024 9:08am16.2 %Above high ftzpoc43.0-15.0 Corrected White Blood CountNovember 2024 1:39pmNovember 2024 1:39pm 8.1 10 3/uL4.0-11.0Corrected White Blood CountDece2024 11:26amDecember 2024 11:26am6.7 10 3/uL4.0-11.0Corrected White Blood CountDecember 2024 9:08amDecember 2024 9:08am6.1 10 3/uL4.0-11.0Corrected White Blood CountNovember 2024 6:55amNovember 2024 2:37pm5.9 10*3/uL3.8-11.6 [facility] [id number] [address] [facility] [address]Inigbcxqf White Blood CountNovember 2024 1:15pmNovember 2024 9:25pm7.3 10*3/uL3.8-11.6[facility] [id number] [address] [facility] [address]Eohcjbech White Blood CountNovember 2024 12:58pmNovember 2024 1:54pm7.7 10*3/uL3.8-11.6[facility] [id number] [address] [place] [id number] White Blood CountDecember 2024 6:49amDecember 2024 2:15pm7.0 10*3/uL3.8-11.6[facility] [id number] [address] [facility] [address]Rmxtticnlyr WBC CountNovember 2024 6:55amNovember 2024 2:37pm5.9 10*3/uL3.8-11.6[facility] [id number] [address] [facility] 19383Jfbpcevvjwf WBC CountNovember 2024 1:15pmNovember 2024 9:25pm7.3 10*3/uL3.8-11.[address] [place] [address] Ctr [id number] [address] [facility] [address]Wjivrprfpik WBC CountNovember 2024 12:58pmNovember 2024 1:54pm7.7 10*3/uL3.8-11.6[facility] [id number] [address] [facility] [address]Imekuwtybwl WBC CountDecember 2024 6:49amDecember 2024 2:15pm7.0 10*3/uL3.8-11.6[facility] [id number] [address] [facility] 239[address]Kcv Blood CountNovember 2024 6:55amNovember 2024 2:37pm3.20 10*6/uLBelow low normal3.60-5.00[facility] [id number] [address] [facility] 217[address]Tza Blood CountNovember 2024 1:15pmNovember 2024 9:25pm3.65 10*6/uL3.60-5.00[facility] [id number] [address] [facility] [address]Iof Blood CountNovember 2024 12:58pmNovember 2024 1:54pm3.54 10*6/uLBelow low normal3.60-5.00[facility] [id number] [address] [facility] [address]Kou Blood CountDecember 2024 6:49amDecember 2024 2:15pm3.82 10*6/uL3.60-5.00[facility] [id number] [address] [facility] 725[address]UwdshqecvgHpjneuaf 2024 6:55amNovember 2024 2:37pm 7.5 g/dLBelow low judeui92.8-15.4[facility] [id number] [address] [facility] [address]AkcxqmtbxvIskpqsru 2024 1:15pmNovember 2024 9:25pm 8.7 g/dLBelow low okkecm39.8-15.[address] [place] [address] Ctr [id number] [address] [facility] [address]MnqbfqiporZxvromiu 2024 12:58pmNovember 2024 1:54pm 8.2 g/dLBelow low yubbtt77.8-15.[address] [place] [address] Ctr [id number] [address] [facility] 973[address]AhkqfnxwvtTqgyenkm 2024 6:49amDecember 2024 2:15pm8.7 g/dLBelow low kauqxt46.8-15.[address] [place] [address] Ctr [id number] [address] [facility] [address]IontjgyetlUaahcqbc 2024 6:55amNovember 2024 2:37pm 23.6 %Below low .0-46.[address] [place] [address] Ctr [id number] [address] [facility] [address]ZyttgcunsbOakydkvi 2024 1:15pmNovember 2024 9:25pm 26.4 %Below low lorlwq72.0-46.4[facility] [id number] [address] [facility] [address]LxmvexzcusDazrhyjn 2024 12:58pmNovember 2024 1:54pm 25.6 %Below low kzpocs71.0-46.[address] [place] [address] Ctr [id number] [address] [facility] [address]MybnpuvzpdQrwpiipi 2024 6:49amDecember 2024 2:15pm 27.1 %Below low nlewvh59.0-46.4[facility] [id number] [address] [facility] [address]Qohh Corpuscular VolumeNovember 2024 6:55amNovember 2024 2:37pm73.7 fLBelow low dfirtu80-940MvcxhvuvrOur [facility] [id number] [address] [facility] [address]Hcvt Corpuscular VolumeNovember 2024 1:15pmNovember 2024 9:25pm72.4 fLBelow low -301XykhooonrOur [facility] Of [facility] [id number] [address] [facility] 08994Bryh Corpuscular VolumeNovember 2024 12:58pmNovember 2024 1:54pm72.3 fLBelow low zyeamh41-075WgruxblqfOur [facility] Of [facility] [id number] 1111 [facility] 79173Wqhg Corpuscular VolumeDecember 2024 6:49amDecember 2024 2:15pm71.1 fLBelow low esnyju22-539TtiihtsvhOur [facility] Of [facility] [id number] 1111 [facility] 81279Sltz Corpuscular HemoglobinNovember 2024 6:55amNovember 2024 2:37pm23.5 pgBelow low caondq72.7-34.3[facility] [id number] 1111 [facility] 89813Tfkg Corpuscular HemoglobinNovember 2024 1:15pmNovember 2024 9:25pm23.8 pgBelow low jiaary34.7-34.3FPike [facility] [id number] 1111 [facility] 22442Evuk Corpuscular HemoglobinNovember 2024 12:58pmNovember 2024 1:54pm23.2 pgBelow low duwlwv51.7-34.3FP[facility] [id number] 1111 [facility] 18313Ajer Corpuscular HemoglobinDecember 2024 6:49amDecember 2024 2:15pm22.8 pgBelow low mwqqab52.7-34.3FP[facility] [id number] 1111 [facility] 47808Vimx Corpuscular Hemoglobin ConcentNovember 2024 6:55am April 13, 2025 2:37pm31.8 g/dLBelow low dkaexh08.0-35.0[facility] [id number] 1111 [facility] 88868Pelx Corpuscular Hemoglobin ConcentNovember 2024 1:15pm April 18, 2025 9:25pm32.9 g/dL32.0-35.0[facility] [id number] 1111 [facility] 62560Qbng Corpuscular Hemoglobin ConcentNovember 2024 12:58pm April 20, 2025 1:54pm32.2 g/dL32.0-35.0[facility] [id number] [address] [place] [address] 31224Jyyk Corpuscular Hemoglobin ConcentDecember 2024 6:49am April 25, 2025 2:15pm32.1 g/dL32.0-35.0[facility] [id number] 1111 [facility] 71199Iim Cell Distribution WidthNovember 2024 6:55amNovember 2024 2:37pm16.8 %Above high .9-15.[address] [place] [address] Ctr [id number] 1111 [facility] 80740Njk Cell Distribution WidthNovember 2024 1:15pmNovember 2024 9:25pm17.3 %Above high uzgtxj61.9-15.3FP[facility] [id number] [address] [place] [address] 11537Isz Cell Distribution WidthNovember 2024 12:58pmNovember 2024 1:54pm17.7 %Above high dvtxij82.9-15.[address] [place] [address] Ctr [id number] 1111 [facility] 91605Knr Cell Distribution WidthDecember 2024 6:49amDecember 2024 2:15pm17.7 %Above high uffjon58.9-15.3FP[facility] [id number] 1111 [facility] 64906Nlimeuef CountNovember 2024 6:55amNovember 2024 2:63ro940 10*3/wX650-295ObdhaydolOur [facility] Of [facility] [id number] 1111 [facility] 60617Xvpaadxe CountNovember 2024 1:15pmNovember 2024 9:47ej386 10*3/rD677-823Iirzuxqyz[address] [place] [address] Ctr [id number] [address] [facility] 25891Cggsmggw CountNovember 2024 12:58pmNovember 2024 1:52ue396 10*3/sK809-453Ysrvhbgyq[address] [place] [address] Ctr [id number] [address] 332[address]Mgegpscp CountDece2024 6:49amDecember 2024 2:34wn942 10*3/aW827-443Lbykblodq[facility] [id number] [facility] 93[address]Tqwd Platelet VolumeNovember 2024 6:55amNovember 2024 2:37pm7.2 f[facility]6.3-10.7[facility] [id number] [facility] 779[address]Crgx Platelet VolumeNovember 2024 1:15pmNovember 2024 9:25pm7.3 fL6.3-10.7[facility] [id number] [facility] 92135Azwr Platelet VolumeNovember 2024 12:58pmNovember 2024 1:54pm6.9 fL6.3-10.7[facility] [id number] [facility] 78677Jgtt Platelet VolumeDecember 2024 6:49amDecember 2024 2:15pm7.1 fL6.3-10.7[facility] [id number] 1111 [facility] [place] [address]Xniinwrxref (%) (Auto)April 13, 2025 6:55amNovember 2024 2:37pm52.9 %.[facility] [id number] 1111 [facility] [place] [address]Whopbjorskk (%) (Auto)April 18, 2025 1:15pmNovember 2024 9:25pm59.2 %.[facility] [id number] 1111 [facility] [place] [address]Ykzwdeamjar (%) (Auto)April 20, 2025 12:58pmNovember 2024 1:54pm57.4 %.[facility] [id number] 1111 [facility] [place] [address]Aeubbdhpaqz (%) (Auto)April 25, 2025 6:49amDecember 2024 2:15pm58.6 %.[facility] [id number] 1111 [facility] [place] [address]Hftdzwakfga (%) (Auto)April 13, 2025 6:55amNovember 2024 2:37pm37.5 %.[facility] [id number] 1111 [facility] [place] [address]Lqgjlxvysoe (%) (Auto)April 18, 2025 1:15pmNovember 2024 9:25pm33.4 %.[facility] [id number] 1111 [facility] [place] [address]Rthjfabwbag (%) (Auto)April 20, 2025 12:58pmNovember 2024 1:54pm35.4 %.[facility] [id number] 1111 [facility] [place] [address]Veepqxdlqeq (%) (Auto)April 25, 2025 6:49amDecember 2024 2:15pm31.6 %.[facility] [id number] 1111 [facility] [place] [address]Udtgonjgf (%) (Auto)April 13, 2025 6:55amNovember 2024 2:37pm6.2 %.[facility] [id number] [address] [facility] [place] [address]Rlrgwzker (%) (Auto)April 18, 2025 1:15pmNovember 2024 9:25pm4.6 %.[facility] [id number] 1[address] [facility] [place] [address]Lmoopdyqh (%) (Auto)April 20, 2025 12:58pmNovember 2024 1:54pm5.1 %.[facility] [id number] 1[address] [facility] [place] [address]Vvtjoteth (%) (Auto)April 25, 2025 6:49amDecember 2024 2:15pm6.8 %.[facility] [id number] 1[address] [facility] [place] [address]Ygopquwnphl (%) (Auto)April 13, 2025 6:55amNovember 2024 2:37pm2.3 %.[facility] [id number] 1[address] [facility] [place] [address]Iyrnigdcdtm (%) (Auto)April 18, 2025 1:15pmNovember 2024 9:25pm1.5 %.[facility] [id number] 1[address] [facility] [place] [address]Wmwotypwbuj (%) (Auto)April 20, 2025 12:58pmNovember 2024 1:54pm1.2 %.[facility] [id number] 1[address] [facility] [place] [address]Cfelxnzjaks (%) (Auto)April 25, 2025 6:49amDecember 2024 2:15pm2.1 %.[facility] [id number] 1111 [facility] [place] [address]Dmzqetzis (%) (Auto)April 13, 2025 6:55amNovember 2024 2:37pm1.1 %.[facility] [id number] 1111 [facility] [place] [address]Nelbwqiwb (%) (Auto)April 18, 2025 1:15pmNov2024 9:25pm1.3 %.[facility] [id number] [address] [facility] [address]Uiylautta (%) (Auto)April 20, 2025 12:58pmNov2024 1:54pm0.9 %.[facility] [id number] [address] [facility] [address]Dfoagnrxb (%) (Auto)April 25, 2025 6:49amDecemb2024 2:15pm0.9 %.[facility] [id number] [address] [facility] [address]Eyvknavdc RBC Relative Count (auto)April 13, 2025 6:55am April 13, 2025 2:37pm0.1 /100{WBC}0-0.5[facility] [id number] [address] [facility] [address]Qqfuuwzfo RBC Relative Count (auto)April 18, 2025 1:15pm April 18, 2025 9:25pm0.1 /100{WBC}0-0.5[facility] [id number] [address] [facility] [address]Czyllkjia RBC Relative Count (auto)April 20, 2025 12:58pm April 20, 2025 1:54pm0.1 /100{WBC}0-0.5[facility] [id number] [address] [facility] [address]Mcoxdqqvq RBC Relative Count (auto)April 25, 2025 6:49am April 25, 2025 2:15pm0.1 /100{WBC}0-0.5[facility] [id number] [address] [facility] [address]Nhfmjqbceqr # (Auto)April 13, 2025 6:55amNovember 2024 2:37pm3.1 10*3/uL1.8-7.7[facility] [id number] [address] [facility] [address]Dnmpvjfcheh # (Auto)April 18, 2025 1:15pmNov2024 9:25pm4.3 10*3/uL1.8-7.7[facility] [id number] [address] [facility] [address]Wpjpdadfuat # (Auto)April 20, 2025 12:58pmNovember 2024 1:54pm4.4 10*3/uL1.8-7.7[facility] [id number] [address] [facility] [address]Fagfgtzqavv # (Auto)April 25, 2025 6:49amDecember 2024 2:15pm4.1 10*3/uL1.8-7.7[facility] [id number] [address] [facility] 495[address]Ecqtdflmbie # (Auto)April 13, 2025 6:55amNovember 2024 2:37pm2.2 10*3/uL1.00-4.8[facility] [id number] [address] [facility] [address]Xsfgtoxavku # (Auto)April 18, 2025 1:15pmNovember 2024 9:25pm2.4 10*3/uL1.00-4.8[facility] [id number] [address] [facility] [address]Fwlfthynemg # (Auto)April 20, 2025 12:58pmNovember 2024 1:54pm2.7 10*3/uL1.00-4.8[facility] [id number] [address] [facility] [address]Itnkqjqfwza # (Auto)April 25, 2025 6:49amDecember 2024 2:15pm2.2 10*3/uL1.00-4.8[facility] [id number] [address] [facility] [address]Ysoevgzcx # (Auto)April 13, 2025 6:55amNovember 2024 2:37pm0.4 10*3/uL0.0-0.8[facility] [id number] [address] [facility] [address]Zwgdvkgmb # (Auto)April 18, 2025 1:15pmNovember 2024 9:25pm0.3 10*3/uL0.0-0.8[facility] [id number] [address] [facility] 27[address]Ghzbpmmji # (Auto)April 20, 2025 12:58pmNovember 2024 1:54pm0.4 10*3/uL0.0-0.8[facility] [id number] [address] [facility] [address]Hjytirlny # (Auto)April 25, 2025 6:49amDecember 2024 2:15pm0.5 10*3/uL0.0-0.8[facility] [id number] [address] [facility] [address]Sbsnejmaoog # (Auto)April 13, 2025 6:55amNovember 2024 2:37pm0.1 10*3/uL0.0-0.45[facility] [id number] [address] [facility] [address]Wpdpoiengdu # (Auto)April 18, 2025 1:15pmNovember 2024 9:25pm0.1 10*3/uL0.0-0.45[facility] [id number] [address] [facility] [address]Reuzyfceiny # (Auto)April 20, 2025 12:58pmNovember 2024 1:54pm0.1 10*3/uL0.0-0.45[facility] [id number] [address] [facility] [address]Bliaftfjnvp # (Auto)April 25, 2025 6:49amDecember 2024 2:15pm0.1 10*3/uL0.0-0.45[facility] [id number] [address] [facility] [address]Rqdsufpgb # (Auto)April 13, 2025 6:55amNovember 2024 2:37pm0.1 10*3/uL0.0-0.2[facility] [id number] [address] [facility] 9[address]Vbscovqan # (Auto)April 18, 2025 1:15pmNov2024 9:25pm0.1 10*3/uL0.0-0.2[facility] [id number] [address] [facility] [address]Rwpoqumfi # (Auto)April 20, 2025 12:58pmNovember 2024 1:54pm0.1 10*3/uL0.0-0.2[facility] [id number] [address] [facility] [address]Jijouzaqu # (Auto)April 25, 2025 6:49amDecember 2024 2:15pm0.1 10*3/uL0.0-0.2[facility] [id number] [address] [facility] 99663Mfbnerx LevelNov2024 6:55amNovember 2024 2:41pm97 mg/lV04-648GPB recommended reference rangeRandom Glucose Reference Range is dependent on time and content of last meal. Glucose of more than 200 mg/dL in a nonstressed, ambulatory subject supports the diagnosisof Diabetes Mellitus.[facility] [id number] [address] [facility] 329[address]Fjvefwa LevelApril 18, 2025 1:15pmNov2024 9:32pm85 mg/iP21-129ICL recommended reference rangeRandom Glucose Reference Range is dependent on time and content of last meal. Glucose of more than 200 mg/dL in a nonstressed, ambulatory subject supports the diagnosisof Diabetes Mellitus.[facility] [id number] [address] [facility] 616[address]Mjjcjdj LevelApril 20, 2025 12:58pmNov2024 2:02pm96 mg/dN43-793WKB recommended reference rangeRandom Glucose Reference Range is dependent on time and content of last meal. Glucose of more than 200 mg/dL in a nonstressed, ambulatory subject supports the diagnosisof Diabetes Mellitus.[facility] [id number] [address] [facility] 530[address]Iwunq Urea NitrogenApril 13, 2025 6:55amNovember 2024 2:41pm9 mg/dL-[facility] [id number] [address] [facility] [address]Jpfpe Urea NitrogenNov2024 1:15pmNov2024 9:32pm11 mg/dL-[facility] [id number] [address] [facility] 61996Quflc Urea NitrogenNov2024 12:58pmNov2024 2:02pm11 mg/dL7-[facility] [id number] [address] [facility] 757[address]DboqrqzpqqUqxrjnmr 19th, 2025 6:55amNovember 2024 2:41pm 0.44 mg/dLBelow low normal0.60-1.20[facility] [id number] [address] [facility] 65381DyqrdvslizZommybsy 24th, 2025 1:15pmNov2024 9:32pm 0.57 mg/dLBelow low normal0.60-1.20[facility] [id number] [address] [facility] 479[address]JqtegwtgrrAgfriufy 26th, 2025 12:58pmNov2024 2:02pm 0.55 mg/dLBelow low normal0.60-1.20[facility] [id number] [address] [facility] 32758Xpmyqohgj GFR (CKD-EPI)April 13, 2025 6:55amNovember 2024 2:41pm> 60.0 mL/MinOur [facility] Of [facility]cy [facility] [id number] [address] [facility] 57585Elltddjsr GFR (CKD-EPI)April 18, 2025 1:15pmNov2024 9:32pm> 60.0 mL/MinOur [facility] Of [facility] [id number] [address] [facility] 19607Qjoacxgkz GFR (CKD-EPI)April 20, 2025 12:58pmNovember 2024 2:02pm> 60.0 mL/MinOur [facility] Of [facility] [id number] 1[address] [facility] 66079Gdqkzk LevelNovember 2024 6:55amNovember 2024 2:10gc520 mmol/W704-731AimcbqgygOur [facility] Of [facility] [id number] [address] [facility] 690[address]Nihpjf LevelNovember 2024 1:15pmNovember 2024 9:40nv825 mmol/Z709-036FnxmunkidOur [facility] Of [facility] [id number] [address] [facility] 020[address]Umkbow LevelNovember 2024 12:58pmNovember 2024 2:83hn613 mmol/LBelow low acpyqr905-978EgxwjrggaOur [facility] Of [facility] [id number] [address] [facility] 56120Zkcjoojls LevelNovember 2024 6:55amNovember 2024 2:41pm4.6 mmol/L3.5-5.1[facility] [id number] [facility] [facility] 14457Rnlvesvqp LevelNovember 2024 1:15pmNovember 2024 9:32pm3.8 mmol/L3.5-5.1[facility] [id number] [address] [facility] 957[address]Fkfvkqmpv LevelNovember 2024 12:58pmNovember 2024 2:02pm3.5 mmol/L3.5-5.1[facility] [id number] [address] [facility] 83906Wdncmemu LevelNovember 2024 6:55amNovember 2024 2:73ks441 mmol/LAbove high -080HtxwslkycOur [facility] Of [facility] [id number] [address] [facility] 523[address]Bjgpoluq LevelNovember 2024 1:15pmNovember 2024 9:79ei442 mmol/A88-571OwnseaiobOur [facility] Of [facility] [id number] [address] [facility] 07565Xdnxebok LevelNovember 2024 12:58pmNovember 2024 2:89dx742 mmol/P36-195JnvxkgplbOur [facility] Of [facility] [id number] [address] [facility] 44183Icrxxv Dioxide LevelNov2024 6:55amNovember 2024 2:41pm26.0 mmol/L21.0-31.0[facility] [id number] [address] [facility] 86952Vliznh Dioxide LevelNov2024 1:15pmNovember 2024 9:32pm23.0 mmol/L21.0-31.0[facility] [id number] [address] [facility] 32227Gfiaqt Dioxide LevelNov2024 12:58pmNovember 2024 2:02pm24.3 mmol/L21.0-31.0[facility] [id number] [address] [facility] 30109Lwpwm GapApril 13, 2025 6:55amNovember 2024 2:41pm 10.6 mEq/L6.0-15.0[facility] [id number] [address] [facility] 45993Gxhxe GapApril 18, 2025 1:15pmNov2024 9:32pm 13.8 mEq/L6.0-15.0[facility] [id number] [address] [facility] 28624Vqagd GapApril 20, 2025 12:58pmNov2024 2:02pm 12.2 mEq/L6.0-15.0[facility] [id number] [address] [facility] 91050Coclwev LevelNov2024 6:55amNovember 2024 2:41pm8.7 mg/dL8.6-10.3[facility] [id number] [address] [facility] 10030Entcibw LevelNov2024 1:15pmNov2024 9:32pm8.8 mg/dL8.6-10.3[facility] [id number] [address] [facility] 83052Iassizg LevelNov2024 12:58pmNovember 2024 2:02pm8.9 mg/dL8.6-10.3[facility] [id number] [address] [facility] 30306Hwzjh ProteinNovember 2024 6:55amNovember 2024 2:41pm6.0 g/dLBelow low normal6.4-8.9[facility] [id number] [address] [facility] 94605Jmxgg ProteinNovember 2024 1:15pmNovember 2024 9:32pm6.8 g/dL6.4-8.9[facility] [id number] [address] [facility] 547[address]Imara ProteinNovember 2024 12:58pmNovember 2024 2:02pm7.0 g/dL6.4-8.9[facility] [id number] [address] [facility] 829[address]VywovrdSogurlml 2024 6:55amNovember 2024 2:41pm3.7 g/dL3.5-5.7[facility] [id number] [address] [facility] 99238KinwkjkIsvpiqtf 2024 1:15pmNovember 2024 9:32pm4.2 g/dL3.5-5.7[facility] [id number] [address] [facility] 82202IqypqsvSxnckuqg 2024 12:58pmNovember 2024 2:02pm4.3 g/dL3.5-5.7[facility] [id number] [address] [facility] 90205JghknygxTfpruuwt 2024 6:55amNovember 2024 2:41pm2.3 g/dLOur [facility] Of [facility] [id number] [address] [facility] 26455XuqdhthkAqcbjsfm 2024 1:15pmNovember 2024 9:32pm2.6 g/dLOur [facility] Of [facility] [id number] [address] [facility] 99009AvcedxkwVwxjxozs 2024 12:58pmNovember 2024 2:02pm 2.7 g/dLOur [facility] Of [facility] [id number] [address] [facility] 51372Qtmykxb/Globulin RatioNovember 2024 6:55amNovember 2024 2:41pm1.6[facility] [id number] [address] [facility] 90954Sxelgdm/Globulin RatioNovember 2024 1:15pmNovember 2024 9:32pm1.6[facility] [id number] [address] [place] [address] 58294Ybvcdsj/Globulin RatioNovember 2024 12:58pmNovember 2024 2:02pm1.6[facility] [id number] [address] [place] [address] 38246Sallg BilirubinNovember 2024 6:55amNovember 2024 2:41pm0.2 mg/dLBelow low normal0.3-1.0[facility] [id number] [address] [facility] 13816Hmzkg BilirubinNovember 2024 1:15pmNovember 2024 9:32pm0.3 mg/dL0.3-1.0[facility] [id number] [address] [place] [address] 40574Mvtxz BilirubinNovember 2024 12:58pmNovember 2024 2:02pm0.3 mg/dL0.3-1.0[facility] [id number] [address] [place] [address] 06237Oshbhxpwh Amino Transf (AST/SGOT)April 13, 2025 6:55am April 13, 2025 2:41pm20 U/M24-78XbuvevidcOur Lady Of [facility]cy Hospital [facility] [id number] [address] [place] [address] 07467Oqujtxrvn Amino Transf (AST/SGOT)April 18, 2025 1:15pm April 18, 2025 9:32pm20 U/F09-38OrxmvmawrOur Lady Of Mercy Hospital [facility] [id number] [address] [place] [address] 24595Nkudzxqex Amino Transf (AST/SGOT)April 20, 2025 12:58pm April 20, 2025 2:02pm17 U/C42-44ChasuqgbiOur Lady Of [facility] [id number] [address] [place] [address] 99148Fwuexmw Aminotransferase (ALT/SGPT)April 13, 2025 6:55am April 13, 2025 2:41pm12 U/L7-52[facility] [id number] [address] [place] [address] 37787Bflfvtq Aminotransferase (ALT/SGPT)April 18, 2025 1:15pm April 18, 2025 9:32pm13 U/L7-52[facility] [id number] [address] [place] [address] 56872Smhsreo Aminotransferase (ALT/SGPT)April 20, 2025 12:58pm April 20, 2025 2:02pm13 U/L7-52[facility] [id number] [address] [place] [address] 74078Cwhwohaq PhosphataseNovember 2024 6:55amNovember 2024 2:41pm81 U/Y47-381PxjvdzlmbOur Lady Of [facility] [id number] [address] [place] [address] 15448Memeuons PhosphataseNovember 2024 1:15pmNovember 2024 9:32pm93 U/S31-396NsqkmiqmxOur [facility] Of [facility] [id number] [address] [place] [address] 05898Bckepmov PhosphataseNovember 2024 12:58pmNovember 2024 2:02pm88 U/H96-971BdrmcyilfOur Lady Of Mercy Hospital [facility] [id number] [address] [place] [address] 89259Ilqo LevelNovember 2024 1:15pmNovember 2024 9:32pm 15 ug/dLBelow low gumxsl23-288JaugbdxvlOur Lady Of Mercy [facility] [id number] [address] [place] [address] 87470Hpjd LevelNovember 2024 12:58pmNovember 2024 2:02pm 18 ug/dLBelow low zgeibo21-632EdohrmvanOur Lady Of Mercy [facility] [id number] [address] [place] [address] 32221Nnqj LevelDecember 2024 6:49amDecember 2024 2:36pm17 ug/dLBelow low pjhoet26-877OdpovqjhdOur Lady Of [facility] [id number] [address] [facility] 040[address]Jepco Iron Binding CapacityNovember 2024 1:15pmNovember 2024 9:33pa030 ug/dLAbove high yetdlc873-517HrjwosdygOur Lady Of [facility] [id number] [address] [facility] 22650Cchgw Iron Binding CapacityNovember 2024 12:58pmNovember 2024 2:63cx673 ug/dLAbove high qknpak558-292GycsjpxxtOur [facility] Of [facility] [id number] [address] [facility] 07907Jjhpi Iron Binding CapacityDecember 2024 6:49amDecember 2024 2:58xj889 ug/dLAbove high nfyusz799-810EyfgvuybmOur [facility] Of [facility] [id number] [address] [facility] 51867Pbsx SaturationNovember 2024 1:15pmNovember 2024 9:32pm2.5 %Below low -18QxztbfqduOur Lady Of [facility]cy [facility] [id number] [address] [facility] 28812Esgy SaturationNov2024 12:58pmNovember 2024 2:02pm3.1 %Below low uikxgl32-05GnrnyaklsOur Lady Of [facility] [id number] [address] [facility] 47658Rwwk SaturationDece2024 6:49amDecember 2024 2:36pm2.9 %Below low tdyeky36-68BmmnnhobiOur Lady Of Mercy [facility] [id number] [address] [facility] 74228FtrzrcyjskdVjlatepn 2024 1:15pmNovember 2024 9:32pm 422 mg/dLAbove high -001PhdcjcknwOur Lady Of [facility] [id number] [address] [facility] 68677DonbzvtykbxYvnfndnx 2024 12:58pmNovember 2024 2:94wk844 mg/dLAbove high -328NbobuwequOur Lady Of [facility]cy [facility] [id number] [address] [facility] 95101UnshytyemfyZjwjquoe 2024 6:49amDecember 2024 2:36pm 422 mg/dLAbove high ixnpoy482-506TencybqdoOur Lady Of Mercy [facility] [id number] [address] [facility] 45529PnfpqqgxPkcunzof 2024 1:15pmNovember 2024 9:51pm3.9 ng/mLBelow low moijme03.0-306.8[facility] [id number] [address] [facility] 33895KwzcatbnNlabmqmr 2024 12:58pmNovember 2024 2:22pm 4.3 ng/mLBelow low ufbyul48.0-306.8[facility] [id number] [address] [facility] 13306JhxyceklNhaxmzml 2024 6:49amDecember 2024 2:56pm4.0 ng/mLBelow low afneox99.0-306.8[facility] [id number] [address] [facility] 13330Dalbotwf Creatinine Clearance (ChemNovember 2024 6:55am April 13, 2025 2:41pmN/[facility] [id number] [address] [facility] 79090Ktckfzch Creatinine Clearance (ChemNovember 2024 1:15pm April 18, 2025 9:32pmN/[facility] [id number] [address] [facility] 17592Garyldsz Creatinine Clearance (ChemNovember 2024 12:58pm April 20, 2025 2:02pmN/[facility] [id number] [address] [facility] 29769Cpryfebgamvyu Pathology TestSeptember 2024 11:00pmOctober 2024 9:41amSee commentSee report. Scanned copy available in EMR.[facility] [id number] [address] [address] Vital Signs Vital Reading Result Reference Range Collection Date/Time Height 64 [in_i] April 12, 2025 3:71yqHrybjv57.99 kgNovember 2024 3:27pmHeart Rate88 /bfy95-782Zfmoadhd 2024 3:27pmRespiratory rate18 /shb40-13Seqdwdmh 2024 3:27pmOxygen saturation by Pulse qnwfzqsu38 %95-100[facility] 2024 3:27pmBP Fjrsqvis398 mm[Hg]100-140[facility] 2024 3:27pmBP Rxaxjymig75 mm[Hg]60-100[facility] 2024 3:27pmBMI (Body Mass Index)33.3 kg/c6Jvnaylih 2024 3:02ipFhzqpc61 [in_i]May 10, 2025 1:94bkJvolei57.63 kgDececity [facility] [place] 2024 1:05pmHeart Rate83 /mcs79-766Ugqoyhns 2024 1:05pmRespiratory rate18 /nqk39-92Ymmqkfyu 2024 1:05pmOxygen saturation by Pulse mzipvgql19 %95-100[facility] 2024 1:05pmBP Tvqpllth260 mm[Hg]100-140[facility] [place] 2024 1:05pmBP Mearfsoma91 mm[Hg]60-100[facility] [place] 2024 1:05pmBMI (Body Mass Index)32.8 kg/v2Extiwbex 2024 1:05pm Advance Directives Advance Directive Response Recorded Date/ Time Advance Directives No June 10:59am Insurance Providers Guarantor Rosalba Ibrahimapp Address [address] [facility] [address]Xfbzehu Info.Home Phone: Payer Group Member ID Coverage Type Subscriber Relationship to Subscriber Effective Date Expiration Date Vijay CRUZ Id: [id number] J Knapp Id: [id number] [address] [facility] [address] Home Phone: [employer] [place] [employer] Third [id number] L Knapp Id: [id number] [address] [facility] [address] Home Phone: Email: [email or web address] [employer]age Id: [id number] L Knapp Id: [id number] [address] [place] [address] Home Phone: Email: [email or web address] Encounters Encounter Location(s) Arrival/Admit Date Discharge/Departure Date Discharge/Departure Disposition Provider(s) Departed Referred -Lab [facility] February 16, 2025 3:33pm February 16, 2025 3:34pm Discharged to home care or self care (routine discharge) Beni Carvalho Departed Referred -LAB [facility] March 11, 2025 10:24am March 11, 2025 10:25am Discharged to home care or self care (routine discharge) Beni Carvalho Departed Physician/ Provider Office Visit -[facility] April 12, 2025 2:39pm April 12, 2025 4:09pm Discharged to home care or self care (routine discharge) Ousmane Kern DO Departed Clinical -Lab [place] April 13, 2025 6:54am April 13, 2025 6:55am Discharged to home care or self care (routine discharge) Ousmane Kern DO Non-patient / Non-visit -[facility]2024 1:39pm SULY Steve-CDeparted Clinical-Lab [facility] 2024 1:15pmNov2024 1:16pmDischarged to home care or self care (routine discharge)Ousmane [facility]erneparted [facility] 20[facility] 12:57pmNov2024 12:58pmDischarged to home care or self care (routine discharge)Ousmane Kerneparted Clinical-Lab [facility]2024 6:46amDeceer 2024 6:47amDischarged to home care or self care (routine discharge)Shen Kuns , P DONon-patient / Lou-buibi-[facility] May 02, 2025 11:26amCorey Renay-patient / Qif-ranto-[facility] 2024 9:08amCorey FazioDeparted Physician/Provider Office Visit-[facility] 2024 12:50pmDelittle [facility] 20[facility] 1:57pmDischarged to home care or self care (routine discharge)Ousmane Kern DO Recent Diagnosis Onset Date Admit Date Heavy menstrual period Unknown April 12, 2025 2:39pm Lumbar back pain Unknown April 12, 2025 2:39pm Iron deficiency anemia Unknown May 10, 2025 12:50pm Pneumonia Unknown May 10, 025 12:50pm Assessments Author Cheryl [facility] 2024 3:33pmThe above note written by Cheryl CAMPOS acting as human recorder, note dictated by Dr. Shen Esparza. Author M[facility] 2024 1:46pmSooner if needed, ER if concerns. The above note written by Meka Xiao LPN, acting as human recorder, note dictated by Dr. Shen Esparza. Plan of Treatment Author Cheryl [facility] 2024 4:28pmPatient voiced some slight pain on [...] due to the patient skin appearing pale. Author [facility] 2024 1:56pmReview of pt's chest x-ray. I will call Dr. Neri's office today to try to get pt scheduled as soon as possible. An order for an updated chest x-ray was placed today. Encouraged her to finish out her antibiotics. She was given an albuterol inhaler by Dr. Carvalho as well, which she states she does not use because she does not have any noticeable wheezing or SOB. I do recommend she take this three times a day, even though asymptomatic. Encouraged pt to take deep breaths multiple times a day as well, and advised this should help open her airways. We will continue to monitor. Review of CBC from 05/02 and 05/03. Encouraged pt to have this re-checked by Dr. Carvalho as he wishes. Future Tests Future scheduled test information is unavailable Pending Tests Test Name Ordered Date Scheduled Date XR chest 2V* May 10, 2025 1:52pm Future Visits Future appointment information is unavailable Future Procedures Future procedure information is unavailable Future Medications Future medication information is unavailable Patient Instructions Instruction Admit Date Low back pain in adults April 12, 2:39pm Hospital Discharge Instructions Ambulatory Orders* Referral to Pulmonology Time Frame: 05/10/25, Location: None Selected
--- OUTSIDE RECORDS SUMMARY | 2025-05-12 15:30 | XMS_ITS | Encounter Summary ---
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 Name Role Phone KirillShen henriquez Primary Care Provider [phone] Encounter Details DateTypeDepartmentCare Team (Latest Contact Info)Pnnpnhvrtac38/08/2025Telephone NOMRonda LEONARD [address] [place] [address] Tiny Alberto LPN Social History Tobacco UseTypesPacks/DayYears UsedDateSmoking Tobacco: Never Assessed CommentsUnknownSex and Gender InformationValueDate RecordedSex Assigned at Not on fileLegal NevQnhydh14/15/2023 7:30 PM EDTGender IdentityNot on fileSexual OrientationNot on filedocumented as of this encounter Miscellaneous Notes * Telephone Encounter - Tiny Alberto LPN - 05/02/2025 9:35 AM EST Needed lab order for patient to receive 2 units prior to surgery tomorrow. --ss Also, faxed infusion orders that were faxed to office to be completed. Tiny Cheung LPN documented in this encounter Plan of Treatment DateTypeDepartmentCare Team (Latest Contact Info)Wusoiabwmqm99/23/2026 2:00 PM ESTProcedure Visit NOM[facility]onda LEONARD [address] [facility] [place] [address] Beni Carvalho DO [address] [place] [address] NameTypePriorityAssociated DiagnosesOrder ScheduleCBC and differentialLabRoutine Menorrhagia with irregular cycle Iron deficiency anemia due to chronic blood loss Expected: 05/02/2025 (Approximate), Expires: 05/02/2026documented as of this encounter Visit Diagnoses Diagnosis Menorrhagia with irregular cycle Iron deficiency anemia due to chronic blood loss Iron deficiency anemia secondary to blood loss (chronic) documented in this encounter Care Teams Team MemberRelationshipSpecialtyStart DateEnd Date Shen Esparza DO [address] [place] [phone] PCP - General07/15/24documented as of this encounter
--- OUTSIDE RECORDS SUMMARY | 2025-05-12 15:30 | XMS_ITS | Encounter Summary ---
Author Organization [facility] Address [address] [place] [address] Care Team Providers Care Internet Marketing Analyst Name Role Phone Connor Esparzaan Ousmane QUACH Primary Care Provider [phone] Encounter Details DateTypeDepartmentCare Team (Latest Contact Info)Gayzqhttslx96/08/2025linisync Result Encounter [facility] External Department Unsolicited Beni Carvalho, [address] [facility] [place] [address] Social History Tobacco UseTypesPacks/DayYears UsedDateSmoking Tobacco: Never Assessed CommentsUnknownSex and Gender InformationValueDate RecordedSex Assigned at Not on fileLegal UdeLwofsb00/15/2023 7:30 PM EDTGender IdentityNot on fileSexual OrientationNot on filedocumented as of this encounter Plan of Treatment DateTypeDepartosf healthcare st. francis hospitalCare Team (Latest Contact Info)Derlonlpiae82/23/2026 2:00 PM ESTProcedure Visit NOMRonda [place] OBGY [address] [facility] [address] Beni Carvalho, [address] [facility] [place] [address] documented as of this encounter Procedures Procedure NamePriorityDate/TimeAssociated DiagnosisCommentsSRMCOH PROTHROMBIN TIME INR W/O MUQXEeudtuz33/08/2025 11:26 AM EST HMHP LIVER WMMZTPlczana31/08/2025 11:26 AM EST CCF VGXPHrvjnzn28/08/2025 11:26 AM EST ALL THYROID STIM AQSKRNYKpbpnae38/08/2025 11:26 AM EST ALL CBC WITH AUTO ZUBAKmlotbt81/08/2025 11:26 AM EST ALL BASIC METABOLIC VVJWDOgarmtw40/08/2025 11:26 AM EST documented in this encounter Results * ALL THYROID STIM HORMONE (05/02/2025 11:26 AM EST)ComponentValueRef RangeTest MethodAnalysis TimePerformed AtPathologist SignatureTHYROID STIMULATING HORMONE1.3160.358 - 3.740 uIU/mLTBHSpecimen (Source)Anatomical Location / LateralityCollection Method / VolumeCollection TimeReceived Time05/02/2025 11:26 AM EST05/02/2025 11:27 AM EST Narrative CL[facility] - 05/02/2025 12:05 PM EST Authorizing ProviderResult TypeResult StatusCorey Deven DOCLINISYNCFinal Result Performing OrganizationAddressCity/State/ZIP CodePhone Number [facility] * (ABNORMAL) ALL BASIC METABOLIC PANEL (05/02/2025 11:26 AM EST)ComponentValue Ref RangeTest MethodAnalysis TimePerformed AtPathologist ZfucxvkkbSEJMMS784103 - 145 mmol/LTBHPOTASSIUM4.03.5 - 5.1 mmol/UZEULORLKZQO31960 - 107 mmol/LTBH CAR[place] IUVWGHI21.621.0 - 32.0 mmol/LTBHANION GAP16.1BJLSXPVDDV7867 - 106 mg/dL TBHBLOOD UREA NITROGEN6.0(L)7.0 - 18.0 mg/dLTBHCREATININE0.620.55 - 1.02 mg/dL TBHTBH EGFR-AF VI[place]ESE>60>=60 mL/min/1.73m 2TBHTBH EGFR-NON AF VI[place]ESE>60 >=60 mL/min/1.73m 2TBHBUN CREATININE RATIO9.0JGGTGYAEGS0.58.5 - 10.1 mg/dLTBH Specimen (Source)Anatomical Location / LateralityCollection Method / Volume Collection TimeReceived Time05/02/2025 11:26 AM EST05/02/2025 11:27 AM EST Narrative [facility] - 05/02/2025 12:05 PM EST Authorizing ProviderResult TypeResult StatusCorey Deven DOCLINISYNCFinal Result Performing OrganizationAddressCity/State/ZIP CodePhone Number [facility] * (ABNORMAL) [facility] LIVER PANEL (05/02/2025 11:26 AM EST)ComponentValueRef Range Test MethodAnalysis TimePerformed AtPathologist SignatureBILIRUBIN TOTAL0.30.2 - 1.0 mg/dLTBHBILIRUBIN DIRECT0.10.0 - 0.2 mg/dLTBHASPARTATE AMINO TRANSFERASE 2115 - 37 U/LTBHALANINE JRNCBCTNUXZTUSEM6822 - 59 U/LTBHALKALINE PHOSPHATASE 24810 - 116 U/LTBHTOTAL PROTEIN6.96.4 - 8.2 g/dLTBHALBUMIN LEVEL3.3(L)3.4 - 5.0 g/dLTBHGLOBULIN3.6g/dLTBHALBUMIN GLOBULIN RATIO0.9TBHSpecimen (Source) Anatomical Location / LateralityCollection Method / VolumeCollection Time Received Time05/02/2025 11:26 AM EST05/02/2025 11:27 AM EST Narrative [facility] - 05/02/2025 12:05 PM EST Authorizing ProviderResult TypeResult StatusCorey Deven DOCLINISYNCFinal Result Performing OrganizationAddressCity/State/ZIP CodePhone Number [facility] * CCF APTT (05/02/2025 11:26 AM EST)ComponentValueRef RangeTest MethodAnalysis TimePerformed AtPathologist SignaturePARTIAL THROMBOPLASTIN TIME26.222.3 - 36.2 secTBHSpecimen (Source)Anatomical Location / LateralityCollection Method / VolumeCollection TimeReceived Time05/02/2025 11:26 AM EST05/02/2025 11:27 AM EST Narrative CL[facility] - 05/02/2025 11:53 AM EST Authorizing ProviderResult TypeResult StatusCorey Deven DOCLINISYNCFinal Result Performing OrganizationAddressCity/State/ZIP CodePhone Number [facility] * SRMCOH PROTHROMBIN TIME INR W/O COUM (05/02/2025 11:26 AM EST)ComponentValue Ref RangeTest MethodAnalysis TimePerformed AtPathologist SignaturePROTHROMBIN TIME10.79.0 - 11.6 secTBHTBH INR1.02TBHComment: DESIRED INR: 2.0-3.0 CONDITIONS NOT LISTED BELOW 2.5-3.5 FOR PROSTHETIC HEART VALVE REPLACEMENT 2.5-3.5 RECURRENT THROMBOSIS Specimen (Source)Anatomical Location / LateralityCollection Method / Volume Collection TimeReceived Time05/02/2025 11:26 AM EST05/02/2025 11:27 AM EST Narrative CLINISYNC - 05/02/2025 11:53 AM EST Authorizing ProviderResult TypeResult StatusCorey Deven DOCLINISYNCFinal Result Performing OrganizationAddressCity/State/ZIP CodePhone Number [facility]INEDUARREPLACED [facility] * (ABNORMAL) ALL CBC WITH AUTO DIFF (05/02/2025 11:26 AM EST)ComponentValueRef RangeTest MethodAnalysis TimePerformed AtPathologist SignatureTBH WBC6.74.0 - 11.0 10 3/uLTBHTBH RBC3.74(L)4.20 - 5.40 10 6/uLTBHTBH HGB8.3(L)12.0 - 16.0 g/dLTBHTBH HCT27.3(L)36.0 - 48.0 %TBHTBH MCV73.0(L)81.0 - 99.0 fLTBHTBH MCH 22.2(L)26.7 - 34.0 pgTBHTBH MCHC30.429.9 - 35.2 g/dLTBHTBH RDW15.9(H)11.0 - 15.0 %TBHTBH XHH840089 - 450 10 3/uLTBHTBH MPV8.2(L)9.5 - 13.5 fLTBH NEUTROPHILS PERCENT AUTO59.943.0 - 75.0 %TBHLYMPHOCYTES PERCENT AUTO30.720.5 - 60.0 %TBHMONOCYTES PERCENT AUTO6.91.7 - 12.0 %TBHTBH EO %1.50.9 - 7.0 %TBH BASOPHILS PERCENT AUTO0.60.2 - 2.0 %TBHIMMATURE GRANULOCYTES PCT AUTO0.40.0 - 0.5 %TBHNEUTROPHILS ABSOLUTE AUTO4.01.4 - 6.5 10 3/uLTBHLYMPHOCYTES ABSOLUTE AUTO2.11.2 - 3.8 10 3/uLTBHMONOCYTES ABSOLUTE AUTO0.50.3 - 0.8 10 3/uLTBHTBH EO #0.10.0 - 0.7 10 3/uLTBHBASOPHILS ABSOLUTE AUTO0.00.0 - 0.1 10 3/uLTBH IMMATURE GRANULOCYTES ABS AUTO0.030.00 - 0.03 10 3/uLTBHSpecimen (Source) Anatomical Location / LateralityCollection Method / VolumeCollection Time Received Time05/02/2025 11:26 AM EST05/02/2025 11:27 AM EST Narrative CLINISYNC - 05/02/2025 11:31 AM EST Authorizing ProviderResult TypeResult StatusCorey Deven DOCLINISYNCFinal Result Performing OrganizationAddressCity/State/ZIP CodePhone Number [facility] documented in this encounter Visit Diagnoses Not on filedocumented in this encounter Care Teams Team MemberRelationshipSpecialtyStart DateEnd Date Shen Esparza DO [address] [place] [address] PCP - General07/15/24documented as of this encounter
--- OUTSIDE RECORDS SUMMARY | 2025-05-12 15:30 | XMS_ITS | Encounter Summary ---
Author Organization [facility] Address [address] [place] [address] Care Team Providers Care Bridge Instructor Name Role Phone Shen Esparza DO Primary Care Provider [phone] Encounter Details DateTypeDepartmentCare Team (Latest Contact Info)Cdpgdnlqdfy89/16/2025Telephone [facility] [address] [place] [place] [phone] Rebecca Latham MA Social History Tobacco UseTypesPacks/DayYears UsedDateSmoking Tobacco: Never Assessed CommentsUnknownSex and Gender InformationValueDate RecordedSex Assigned at Not on fileLegal AptTdqzbo84/15/2023 7:30 PM EDTGender IdentityNot on fileSexual OrientationNot on filedocumented as of this encounter Miscellaneous Notes * Telephone Encounter - Katie Toth MA - 05/11/2025 1:40 PM EST Spoke with Janis at Dr Esparza office and let her know when our next available consult would be (not until Jun) but that I would watch the schedule for any cancellations. Will still need to wait for Dr Neri to review the referral and get the OK first. I did let Janis know that she is out of the officethe remainder of April. * Telephone Encounter - Rebecca Latham MA - 05/10/2025 3:43 PM EST [facility] w[facility] for her hysterectomy and waswondering if she could get in any sooner since it is kind of urgent. Told them I would put a note in but Dr. Neri is scheduled out quite far so it could be June or later but fax over the referral and we will see what we can do. documented in this encounter Plan of Treatment DateTypeDepartmentCare Team (Latest Contact Info)Vyrbvwdhacv89/23/2026 2:00 PM ESTProcedure Visit [facility] Nathalie [facility] [address] [facility] [place] [phone] Beni Carvalho DO [address] [facility] [place] [address] documented as of this encounter Visit Diagnoses Not on filedocumented in this encounter Care Teams Team MemberRelationshipSpecialtyStart DateEnd Date Shen Esparza DO [facility] [place] [phone] PCP - General07/15/24documented as of this encounter
--- OUTSIDE RECORDS SUMMARY | 2025-05-12 15:30 | XMS_ITS | Encounter Summary ---
Author Organization [facility] Address [address] [place] [address] Care Team Providers Care Tax Compliance Manager Name Role Phone Connor Esparzaan Ousmane QUACH Primary Care Provider Encounter Details DateTypeDepartmentCare Team (Latest Contact Info)Ngsrrppbadp76/09/2025linisync Result Encounter [facility] External Department Unsolicited Beni Carvalho, [address] [facility] [place] [address] Social History Tobacco UseTypesPacks/DayYears UsedDateSmoking Tobacco: Never Assessed CommentsUnknownSex and Gender InformationValueDate RecordedSex Assigned at Not on fileLegal KjwLsbtaa30/15/2023 7:30 PM EDTGender IdentityNot on fileSexual OrientationNot on filedocumented as of this encounter Plan of Treatment DateTypeDepartmary free bed rehabilitation hospitalCare Team (Latest Contact Info)Mdibhejqsia35/23/2026 2:00 PM ESTProcedure Visit NOMRonda [place] OBGY[address] [place] [phone] Beni Carvalho, [address] [facility] [place] [address] documented as of this encounter Procedures Procedure NamePriorityDate/TimeAssociated DiagnosisCommentsTBH PREG QUANT HCG Htyarfp9605/03/2025 9:08 AM EST ALL CBC WITH AUTO DLPZXgaqudc60/09/2025 9:08 AM EST documented in this encounter Results * TBH PREG QUANT HCG (05/03/2025 9:08 AM EST)ComponentValueRef RangeTest Method Analysis TimePerformed AtPathologist SignatureHCG QUANTITATIVE<1mIU/mLTBH Comment: 5-50 ? 0.2-1 WEEK 50-500 ? 1-2 WEEKS 100-5,000 ?2-3 WEEKS 500-10,000 ? 3-4 WEEKS 1,000-50,000 ?? 4-5 WEEKS 10,000-100,000 5-6 WEEKS 15,000-200,000 6-8 WEEKS 10,000-100,000 2-3 MONTHS Specimen (Source)Anatomical Location / LateralityCollection Method / Volume Collection TimeReceived Time05/03/2025 9:08 AM EST05/03/2025 9:08 AM EST Narrative CLINISYNC - 05/03/2025 9:42 AM EST Authorizing ProviderResult TypeResult StatusCorey Deven DOCLINISYNCFinal Result Performing OrganizationAddressCity/State/ZIP CodePhone Number CLINISYNC [facility] * (ABNORMAL) ALL CBC WITH AUTO DIFF (05/03/2025 9:08 AM EST)ComponentValueRef RangeTest MethodAnalysis TimePerformed AtPathologist SignatureTBH WBC6.14.0 - 11.0 10 3/uLTBHTBH RBC4.744.20 - 5.40 10 6/uLTBHTBH HGB11.2(L)12.0 - 16.0 g/dL TBHTBH HCT35.2(L)36.0 - 48.0 %TBHTBH MCV74.3(L)81.0 - 99.0 fLTBHTBH MCH23.6(L) 26.7 - 34.0 pgTBHTBH MCHC31.829.9 - 35.2 g/dLTBHTBH RDW16.2(H)11.0 - 15.0 %TBH TBH SES896518 - 450 10 3/uLTBHTBH MPV8.2(L)9.5 - 13.5 fLTBHNEUTROPHILS PERCENT AUTO57.643.0 - 75.0 %TBHLYMPHOCYTES PERCENT AUTO32.820.5 - 60.0 %TBHMONOCYTES PERCENT AUTO6.31.7 - 12.0 %TBHTBH EO %2.30.9 - 7.0 %TBHBASOPHILS PERCENT AUTO 0.80.2 - 2.0 %TBHIMMATURE GRANULOCYTES PCT AUTO0.20.0 - 0.5 %TBHNEUTROPHILS ABSOLUTE AUTO3.51.4 - 6.5 10 3/uLTBHLYMPHOCYTES ABSOLUTE AUTO2.01.2 - 3.8 10 3/uLTBHMONOCYTES ABSOLUTE AUTO0.40.3 - 0.8 10 3/uLTBHTBH EO #0.10.0 - 0.7 10 3/uLTBHBASOPHILS ABSOLUTE AUTO0.10.0 - 0.1 10 3/uLTBHIMMATURE GRANULOCYTES ABS AUTO0.010.00 - 0.03 10 3/uLTBHSpecimen (Source)Anatomical Location / LateralityCollection Method / VolumeCollection TimeReceived Time05/03/2025 9:08 AM EST05/03/2025 9:08 AM EST Narrative CLINISYNC - 05/03/2025 9:16 AM EST Authorizing ProviderResult TypeResult StatusCorey Deven DOCLINISYNCFinal Result Performing OrganizationAddressCity/State/ZIP CodePhone Number [facility] documented in this encounter Visit Diagnoses Not on filedocumented in this encounter Care Teams Team MemberRelationshipSpecialtyStart DateEnd Date Shen Esparza DO [facility] [place] [phone] PCP - General07/15/24documented as of this encounter
--- OUTSIDE RECORDS SUMMARY | 2025-05-12 15:30 | XMS_ITS | Clinical Summary ---
Author Organization [facility] Address [address] [place] [address] Care Team Providers Care Director Of Health Education Name Role Phone Shen Esparza DO Primary Care Provider [phone] Allergies No known active allergies Medications MedicationSigDispense QuantityRefillsLast FilledStart DateEnd DateStatus citalopram (CeleXA) 20 MG tablet 5Active hydroCHLOROthiazide (HYDRODiuril) 12.5 MG tablet 5Active amLODIPine (Norvasc) 10 MG tablet 5Active megestrol (Megace) 20 MG tablet Indications:Menorrhagia with irregular cycle,Iron deficiency anemia due to chronic blood lossTake 1 tablet 2 times daily for 3 days then take 1 tablet daily for 1 month (36 tablets total) 36 tablet 5Active Encounters DateTypeDepartmentCare LkggXyxboglutme42/16/2025Telephone [facility] [address] [place] [address] Rebecca Latham MA 5Clinisync Result Encounter [facility] External Department Unsolicited Hima Carvalho, DO 5Clinisync Result Encounter [facility] External Department Unsolicited Hima Carvalho, DO 05/02/2025Telephone [facility] [address] [place] [address] Tiny Alberto LPN 05/02/2025Telephone [facility] [address] [place] [address] Tiny Alberto LPN 04/20/2025bstract [facility] [place] [facility] [address] [place] [address] Hima Carvalho, DO 04/20/2025Telephone [facility] [address] [place] [address] Hima Carvalho, DO 04/14/2025Telephone [facility] [address] [place] [address] Tiny Alberto, [employer]MER 03/24/2025 2:30 PM EDTOffice Visit [facility] [address] [place] [address] eVra Greer PA Encounter for postoperative care03/24/2025amboo flowsheet [facility] [place] [facility] [address] [place] [phone] Vera Greer PA 03/16/2025bstract [facility] [address] [place] [address] Lucy Hirsch MA 03/11/2025linisync Result Encounter [facility] External Department Unsolicited Hima Carvalho, DO 03/07/2025Telephone [facility] [place] [facility] [address] [place] [address] Tiny Alberto, [employer] 03/02/2025linisync Result Encounter [facility] External Department Unsolicited Hima Carvalho, DO 03/02/2025linisync Result Encounter [facility] External Department Unsolicited Hima Carvalho, DO 02/23/2025bstract [facility] [address] [place] [address] Lucy Hirsch MA 02/16/2025 3:30 PM EDTProcedure Visit [facility] [address] [place] [address] [place] [phone] Hima Carvalho DO Pre-op examination; Menorrhagia with regular cycle; Abnormal uterine bleeding (AUB); Pelvic pain02/16/2025External Result Encounter [facility] External Department Unsolicited Hima Carvalho DO from Last 3 Months Social History Tobacco UseTypesPacks/DayYears UsedDateSmoking Tobacco: Never Assessed CommentsUnknownSex and Gender InformationValueDate RecordedSex Assigned at Not on fileLegal IccNozfen49/15/2023 7:30 PM EDTGender IdentityNot on fileSexual OrientationNot on file Last Filed Vital Signs Vital SignReadingTime TakenCommentsBlood Jebtqigx743/7408 1:25 PM EDT Pulse--Temperature--Respiratory Rate--Oxygen Saturation--Inhaled Oxygen Concentration--Ofausy59.1 kg (194 lb 1.9 oz)02/16/2025 3:37 PM QSUWgejgt425.6 cm (5' 4 )02/16/2025 3:37 PM EDTBody Mass Index33.3209 3:37 PM EDT Plan of Treatment DateTypeDepartmentCare Team (Latest Contact Info)Hgjywgabgow39/23/2026 2:00 PM ESTProcedure Visit [facility] [address] [place] [address] [place] [phone] Hima Carvalho DO [address] [place] [address] [place] [address] Procedures Procedure NamePriorityDate/TimeAssociated DiagnosisCommentsTBH PREG QUANT HCG Wiuxdcm7005/03/2025 9:08 AM EST ALL CBC WITH AUTO QARCCepabem40/09/2025 9:08 AM EST ALL THYROID STIM ULKCRBQFnogkyg98/08/2025 11:26 AM EST ALL BASIC METABOLIC XSFOWUrjzicr99/08/2025 11:26 AM EST HMHP LIVER IAWIBNtyufrr56/08/2025 11:26 AM EST CCF CYUDWltdfqv66/08/2025 11:26 AM EST SRMCOH PROTHROMBIN TIME INR W/O BPGPZuydtim89/08/2025 11:26 AM EST ALL CBC WITH AUTO SZQHIpeefto70/08/2025 11:26 AM EST CBC (INCLUDES DIFF/PLT)Sdvhnro6304/26/2025 8:52 AM EST Menorrhagia with irregular cycle Iron deficiency anemia due to chronic blood loss ALL TYPE AND UNOSPSTiffyzk83/17/2025 9:37 AM EDT PACKED RED BLOOD TGFLTWpiancr31/17/2025 9:37 AM EDT ALL BASIC METABOLIC SUDRYUqkyusw33/08/2025 9:30 AM EDT ECG 12-LEAD03/02/2025 7:28 AM EDT ENDOMETRIAL GGDITCIkfwkhc37/24/2025 4:07 PM EDT Menorrhagia with regular cycle Abnormal uterine bleeding (AUB) POCT , FKLQMLkvxref66/24/2025 3:43 PM EDT Menorrhagia with regular cycle Abnormal uterine bleeding (AUB) Pelvic pain PATHOLOGY REQUEST FOR LAB JVDXTxsvwam57/24/2025 12:00 AM EDT from Last 3 Months Results * TBH PREG QUANT HCG (05/03/2025 [...] Deven DOCLINISYNCFinal Result Performing OrganizationAddressCity/State/ZIP CodePhone Number [facility] * (ABNORMAL) ALL CBC WITH AUTO DIFF (05/03/2025 9:08 AM EST) Only the most recent of2 resultswithin the time period is included. ComponentValueRef RangeTest MethodAnalysis TimePerformed AtPathologist Signature TBH WBC6.14.0 - 11.0 10 3/uLTBHTBH RBC4.744.20 - 5.40 10 6/uLTBHTBH HGB11.2(L) 12.0 - 16.0 g/dLTBHTBH HCT35.2(L)36.0 - 48.0 %TBHTBH MCV74.3(L)81.0 - 99.0 fLTBH TBH MCH23.6(L)26.7 - 34.0 pgTBHTBH MCHC31.829.9 - 35.2 g/dLTBHTBH RDW16.2(H)11.0 - 15.0 %TBHTBH ADE436517 - 450 10 3/uLTBHTBH MPV8.2(L)9.5 - 13.5 fLTBH NEUTROPHILS PERCENT AUTO57.643.0 - 75.0 %TBHLYMPHOCYTES PERCENT AUTO32.820.5 - 60.0 %TBHMONOCYTES PERCENT AUTO6.31.7 - 12.0 %TBHTBH EO %2.30.9 - 7.0 %TBH BASOPHILS PERCENT AUTO0.80.2 - 2.0 %TBHIMMATURE GRANULOCYTES PCT AUTO0.20.0 - 0.5 %TBHNEUTROPHILS ABSOLUTE AUTO3.51.4 - 6.5 10 3/uLTBHLYMPHOCYTES ABSOLUTE AUTO2.01.2 - 3.8 10 3/uLTBHMONOCYTES ABSOLUTE AUTO0.40.3 - 0.8 10 3/uLTBHTBH EO #0.10.0 - 0.7 10 3/uLTBHBASOPHILS ABSOLUTE AUTO0.10.0 - 0.1 10 3/uLTBHIMMATURE GRANULOCYTES ABS AUTO0.010.00 - 0.03 10 3/uLTBHSpecimen (Source)Anatomical Location / LateralityCollection Method / VolumeCollection TimeReceived Time 05/03/2025 9:08 AM EST05/03/2025 9:08 AM EST Narrative [facility] - 05/03/2025 9:16 AM EST Authorizing ProviderResult TypeResult StatusCorey Deven DOCLINISYNCFinal Result Performing OrganizationAddressCity/State/ZIP CodePhone Number [facility] * SRMCO PROTHROMBIN TIME INR W/O COUM (05/02/2025 11:26 [...] Deven DOCLINISYNCFinal Result Performing OrganizationAddressCity/State/ZIP CodePhone Number [facility] TB * (ABNORMAL) [facility] LIVER PANEL (05/02/2025 11:26 AM EST)ComponentValueRef Range Test MethodAnalysis TimePerformed AtPathologist SignatureBILIRUBIN TOTAL0.30.2 - 1.0 mg/dLTBHBILIRUBIN DIRECT0.10.0 - 0.2 mg/dLTBHASPARTATE AMINO TRANSFERASE 2115 - 37 U/LTBHALANINE MRQQBJLEFQVIZTOR5914 - 59 U/LTBHALKALINE PHOSPHATASE 29109 - 116 U/LTBHTOTAL PROTEIN6.96.4 - 8.2 g/dLTBHALBUMIN LEVEL3.3(L)3.4 - 5.0 g/dLTBHGLOBULIN3.6g/dLTBHALBUMIN GLOBULIN RATIO0.9TBHSpecimen (Source) Anatomical Location / LateralityCollection Method / VolumeCollection Time Received Time05/02/2025 11:26 AM EST05/02/2025 11:27 AM EST Narrative [facility] - 05/02/2025 12:05 PM EST Authorizing ProviderResult TypeResult StatusCorey Deven DOCLINISYNCFinal Result Performing OrganizationAddressCity/State/ZIP CodePhone Number [facility] * CCF APTT (05/02/2025 11:26 AM EST)ComponentValueRef RangeTest MethodAnalysis TimePerformed AtPathologist SignaturePARTIAL THROMBOPLASTIN TIME26.222.3 - 36.2 secTBHSpecimen (Source)Anatomical Location / LateralityCollection Method / VolumeCollection TimeReceived Time05/02/2025 11:26 AM EST05/02/2025 11:27 AM EST Narrative [facility] - 05/02/2025 11:53 AM EST Authorizing ProviderResult TypeResult StatusCorey Deven DOCLINISYNCFinal Result Performing OrganizationAddressCity/State/ZIP CodePhone Number [facility] * ALL THYROID STIM HORMONE (05/02/2025 11:26 AM EST)ComponentValueRef RangeTest MethodAnalysis TimePerformed AtPathologist SignatureTHYROID STIMULATING HORMONE1.3160.358 - 3.740 uIU/mLTBHSpecimen (Source)Anatomical Location / LateralityCollection Method / VolumeCollection TimeReceived Time05/02/2025 11:26 AM EST05/02/2025 11:27 AM EST Narrative [facility] - 05/02/2025 12:05 PM EST Authorizing ProviderResult TypeResult StatusCorey Deven DOCLINISYNCFinal Result Performing OrganizationAddressCity/State/ZIP CodePhone Number [facility] * (ABNORMAL) ALL BASIC METABOLIC PANEL (05/02/2025 11:26 AM EST) Only the most recent of2 resultswithin the time period is included. ComponentValueRef RangeTest MethodAnalysis TimePerformed AtPathologist Signature UXZJSB164190 - 145 mmol/LTBHPOTASSIUM4.03.5 - 5.1 mmol/IMDRLJZAYRAQ25319 - 107 mmol/LTBHCARBON XNWBJNL56.621.0 - 32.0 mmol/LTBHANION GAP16.6DEPEYYBDAZ9275 - 106 mg/dLTBHBLOOD UREA NITROGEN6.0(L)7.0 - 18.0 mg/dLTBHCREATININE0.620.55 - 1.02 mg/dLTBHTBH EGFR-AF TONGAN>60>=60 mL/min/1.73m 2TBHTBH EGFR-NON AF TONGAN>60>=60 mL/min/1.73m 2TBHBUN CREATININE RATIO9.4GJLVZDHQOF5.58.5 - 10.1 mg/dLTBHSpecimen (Source)Anatomical Location / LateralityCollection Method / VolumeCollection TimeReceived Time05/02/2025 11:26 AM EST05/02/2025 11:27 AM EST Narrative [facility] - 05/02/2025 12:05 PM EST Authorizing ProviderResult TypeResult StatusCorey Deven DOCLINISYNCFinal Result Performing OrganizationAddressCity/State/ZIP CodePhone Number [facility] * CBC and differential (04/26/2025 8:52 AM EST)Specimen (Source)Anatomical Location / LateralityCollection Method / VolumeCollection TimeReceived Time BloodVenous blood specimen / Unknown Narrative Authorizing ProviderResult TypeResult StatusCorey Deven DOLAB BLOOD ORDERABLES Final ResultPerforming OrganizationAddressCity/State/ZIP CodePhone Number [facility] * PACKED RED BLOOD CELLS (03/11/2025 9:37 AM EDT)ComponentValueRef RangeTest MethodAnalysis TimePerformed AtPathologist SignaturePACKED RED BLOOD CELLSTBH Comment: [id number] ??ON ?RC ? TRANSFUSED ? 03/11/25 1059 Specimen (Source)Anatomical Location / LateralityCollection Method / Volume Collection TimeReceived Time03/11/2025 9:37 AM EDT1 9:41 AM EDT Narrative Authorizing ProviderResult TypeResult StatusCorey Deven DOLAB BLOOD ORDERABLES Final ResultPerforming OrganizationAddressCity/State/ZIP CodePhone Number [facility] * ALL TYPE AND SCREEN (03/11/2025 9:37 AM EDT)ComponentValueRef RangeTest Method Analysis TimePerformed AtPathologist SignatureBLOOD TYPEO PositiveTBHANTIBODY SCREENNEGATIVETBHSpecimen (Source)Anatomical Location / LateralityCollection Method / VolumeCollection TimeReceived Time03/11/2025 9:37 AM EDT1 9:41 AM EDT Narrative [facility] - 03/11/2025 1:19 PM EDT [facility] , Authorizing ProviderResult TypeResult StatusCorey Deven DOCLINISYNCFinal Result Performing OrganizationAddressCity/State/ZIP CodePhone Number [facility] * ECG 12-LEAD (03/02/2025 7:28 AM EDT)Anatomical RegionLateralityModalityOther Specimen (Source)Anatomical Location / LateralityCollection Method / Volume Collection TimeReceived Time03/02/2025 7:28 AM EDT Narrative 03/02/2025 11:19 AM EDT [facility] ?[address] ? [place] [address] ? Electrocardiograph Report ? Signed ? Patient: ANN MARIE POSADAS ?MR#: [id number] ?? : 1980 ?Acct:[id number] ?? Age/Sex: 45 / F ?ADM Date: 03/02/25 ?? Loc: PST ? Attending Dr: Hima Carvalho D.O. ? Ordering Physician: Hima Carvalho D.O. ?? Date of Service: 03/02/25 ?? Procedure(s): ECG 12 lead ?? Accession Number(s): [id number] ? cc: ?[facility] ? Test Date: ?2025-03-02 ?? Pat Name: ? ANN MARIE POSADAS ? Department: ? Room: ? - ?? Gender: ? Female ? Senior Ui Ux Developer: ? : ?1980 ? Requested By: HIMA CARVALHO ?? Order Number: [id number] ?Reading MD: ?? DAMION SUNNY ? Measurements ?? Intervals ?[place] ? Rate: ? 91 ? P: ?42 ?? TN: ? 149 ?QRS: ?47 ?? QRSD: ? 81 ? T: ?25 ?? QT: ? 355 ? QTc: ?437 ? Interpretive Statements ?? SINUS RHYTHM ?? No previous ECG available for comparison ?? Electronically Signed On 03-02-2025 11:18:57 EDT by DAMION CORREA ? Dictated By: ?Damion Correa M.D. ? Signed By: ?10/08/25 1119 ? DD/ 0728 ? TD/TT: ? Shipping Team Leader: Procedure Note Radiology, Radiologist, - 03/02/[address] [address] Electrocardiograph Report Signed Patient: ANN MARIE POSADAS LMR#: [id number] : 1980Acct:[id number] Age/Sex: 45 / FADM Date: 03/02/25 Loc: PST Attending Dr: Hima Carvalho D.O. Ordering Physician: Hima Carvalho D.O. Date of Service: 03/02/25 Procedure(s): ECG 12 lead Accession Number(s): [id number] cc: [facility] Test Date: 2025-03-02 Pat Name: ANN MARIE POSADAS Department: Room: - Gender: Female Senior Ui Ux Developer: : 1980 Requested By: HIMA CARVALHO Order Number: [id number] Reading MD: DAMION CORREA Measurements Intervals [place] Rate: 91 P: 42 TN: 149 QRS: 47 QRSD: 81 T: 25 QT: 355 QTc: 437 Interpretive Statements SINUS RHYTHM No previous ECG available for comparison Electronically Signed On 03-02-2025 11:18:57 EDT by DAMION CORREA Dictated By: Damion Correa M.D. Signed By:03/02/25 1119 DD/ 0728 TD/TT: Shipping Team Leader: Authorizing ProviderResult TypeResult StatusHima Carvalho DOCLINISYNC IMAGINGFinal Result * Endometrial biopsy [...] well, no immediate complications Authorizing ProviderResult TypeResult StatusCorey Deven DOIN CLINIC/BEDSIDE ORDERABLESFinal Result * POCT , urine manually resulted (02/16/2025 3:43 PM EDT)ComponentValue Ref RangeTest MethodAnalysis TimePerformed AtPathologist SignaturePreg Test, UrNegativeNegativeSpecimen (Source)Anatomical Location / LateralityCollection Method / VolumeCollection TimeReceived PrezJtwqp86/24/2025 3:43 PM EDT Narrative Authorizing ProviderResult TypeResult StatusCorey Deven DOPOINT OF CARE TEST ENTER/EDIT ORDERABLESFinal Result * PATHOLOGY REQUEST FOR LAB LIU (02/16/2025 12:00 AM EDT)ComponentValueRef RangeTest MethodAnalysis TimePerformed AtPathologist SignaturePATHOLOGY REQUEST FOR LAB CORP02/23/2025 10:41 AM [facility] Comment:See report. Scanned copy available in EMR.Specimen (Source)Anatomical Location / LateralityCollection Method / VolumeCollection TimeReceived Time OtherTopography unknown / Tdsrkpz749/ 1:31 PM EDT Narrative [facility] - 02/23/2025 10:41 AM EDT EMBX Authorizing ProviderResult TypeResult StatusCorey Deven DOLAB BLOOD ORDERABLES Final ResultPerforming OrganizationAddressCity/State/ZIP CodePhone Number [facility] [address] [place] [address], [facility] [address] [place] [address] from Last 3 Months Insurance * Guarantor: Linda Posadas TypeRelation to PatientDate of BirthPhone Billing AddressPersonal/SluercGgrx1980 [address] [place] [address] Care Teams Team MemberRelationshipSpecialtyStart DateEnd Date Shen Esparza, [address] [place] [address] PCP - General07/15/24
--- OUTSIDE RECORDS SUMMARY | 2025-05-12 15:30 | XMS_ITS | Encounter Summary ---
Author Organization [facility] Address [address] [place] [address] Care Team Providers Care Biofuels Technology Development Manager Name Role Phone KirillmartinezShen DO Primary Care Provider [phone] Encounter Details DateTypeDepartmentCare Team (Latest Contact Info)Ceyurmzglev14/08/2025Telephone [facility] [address] [place] [address] Tiny Alberto LPN Social History Tobacco UseTypesPacks/DayYears UsedDateSmoking Tobacco: Never Assessed CommentsUnknownSex and Gender InformationValueDate RecordedSex Assigned at Not on fileLegal OjyNpjfdt56/15/2023 7:30 PM EDTGender IdentityNot on fileSexual OrientationNot on filedocumented as of this encounter Miscellaneous Notes * Telephone Encounter - Tiny Alberto LPN - 05/02/2025 9:19 AM EST Orders to have patient receive 2 units prior to upcoming surgery. Spoke with [facility] and order faxed for today as patient is going to be seen at hospital for pre-testing. Tiny Cheung LPN documented in this encounter Plan of Treatment DateTypeDepartmentCare Team (Latest Contact Info)Msgogltwjwi40/23/2026 2:00 PM ESTProcedure Visit [facility] [address] [place] [address] Beni Carvalho DO [address] [place] [address] NameTypePriorityAssociated DiagnosesOrder ScheduleTYPE AND CROSSMATCH ([place])LabRoutine Menorrhagia with irregular cycle Iron deficiency anemia due to chronic blood loss Expected: 05/02/2025 (Approximate), Expires: 05/02/2026documented as of this encounter Visit Diagnoses Diagnosis Menorrhagia with irregular cycle Iron deficiency anemia due to chronic blood loss Iron deficiency anemia secondary to blood loss (chronic) documented in this encounter Care Teams Team MemberRelationshipSpecialtyStart DateEnd Date Shen Esparza DO [address] [place] [address] PCP - General07/15/24documented as of this encounter
--- NOTE | 2025-05-12 15:31 | XR_ITS ---
The [place] [id number] Patient Name: ANN MARIE RODRIGUEZ MRN: [id number] date: 1980 Sex: F Assigned Patient [facility]: [facility] Current [facility] Location: [facility] Accession/Order Number: [id number] Exam Date: 05/12/2025 15:33 Report Date: 05/12/2025 15:48 At the request of: RAHEEM JOHNSON DO Procedure: XR chest 2V Chest 2 views CLINICAL HISTORY: Pneumonia COMPARISON: Chest 05/03/2025 FINDINGS: Heart normal in size. Lungs are clear. No free air. XR/XR chest 2V IMPRESSION: NO ACUTE CARDIOPULMONARY ABNORMALITY. Impression dictated by: Rula Mays Jr.OAdolfo 05/12/2025 3:48 PM Dictation Location: [place] [address] Electronically authenticated by: [id number] Y Date: 05/12/2025 15:48
== END 2025-05-12 15:27 | disposition home or self-care (01) ==
LOC: RAD 15:27
PROVIDERS: PCP Family Medicine; Visit Provider Family Medicine
DX: J18.9 Pneumonia, unspecified organism (principal)
CPT/HCPCS: 71046